=== PATIENT | female | born 1950 | race Caucasian/White ===

== ENCOUNTER 2017-04-14 21:57 | Observation (INO) ==
--- NOTE | 2017-04-15 00:07 | Emergency Department Note ---
Disposition Clinical Impression: Elevated troponin I level Disposition: Admitted As Inpatient Condition: Undetermined Referrals: Jay Valenzuela DO [Primary Care Provider] - Forms: ED Satisfaction Letter General Adult HPI - General Chief complaint: ED Headache Stated complaint: high blood pressure headache Time Seen by Provider: 04/15/17 00:06 Source: patient, family Mode of arrival: ambulatory Limitations: no limitations Nursing Notes Reviewed: Yes Vital Signs Reviewed: Yes - History of Present Illness HPI Narrative: Patient presents to the emergency department for evaluation of elevated blood pressure, and headache for one week. She states that the headache has been all over and is actually top of her head sore. She states her blood pressure has been elevated. She follows Dr. Mcarthur with nephrology she saw him today who stated her blood pressure was elevated and he restarted her hypertension medicine that she had previously been off for the last year. Patient has a history of chronic kidney disease stage III, hypertension, insulin -dependent diabetes, CHF, unstable and stable angina, previous angioplasty with one stent. Patient endorses chest pain daily but is unsure if it has changed or become worsened, headache it does get better when her blood pressure comes down. She denies shortness of breath, dyspnea, nausea, vomiting, diarrhea. Onset (ago): day(s) Location: head Radiation: non-radiation Pain Severity: severe Pain Scale: 10 Quality: stabbing, aching Consistency: intermittent, Worsening Improves with: medication, other (Blood pressure decreasing) Worsens with: movement, other (Blood pressure increasing) Associated symptoms: Reports: chest pain (Chronic). Denies: confusion, cough, diaphoresis, fever/chills, headaches, loss of appetite, malaise, nausea/vomiting , rash, seizure, shortness of breath, syncope, weakness, other - Related Data Allergies Allergy/AdvReac Type Severity Reaction Status Date / Time morphine Allergy Hallucinati Verified 04/14/17 22:12 ng Sulfa (Sulfonamide Allergy Rash Verified 04/14/17 22:12 Antibiotics) All systems ED: reviewed and negative except as stated. Review of Systems: As Per HPI Constitutional: Denies: fever, chills Eyes: Denies: eye pain, eye discharge, vision change ENT ED: Denies: ear pain, hearing loss, epistaxis, dysphagia Cardiovascular: Reports: chest pain (Chronic), dyspnea on exertion (Chronic, but is not worse than previous), edema (Chronic, intermittently). Denies: palpitations, syncope Respiratory: Denies: cough, dyspnea, wheezes, hemoptysis Gastrointestinal: Denies: abdominal pain, nausea, vomiting, diarrhea Integumentary: Denies: rash Neurological: Reports: headache (Drug correlation with blood pressure). Denies : weakness, numbness, paresthesias Past Medical History - Past Medical History Attestation: Yes The following information was validated with the patient. Source: patient Medical history: Reports: CHF, COPD, diabetes, hypertension, renal disease - Social History Smoking Status: Current every day smoker Alcohol use: Reports: none Drug use: Reports: none Physical Exam - General Limitations: no limitations General appearance: alert, in no apparent distress - Head Head exam: atraumatic, normocephalic, normal inspection - Eye Eye exam: Present: normal appearance, PERRL, EOMI - ENT ENT exam: normal oropharynx, mucous membranes moist - Neck Neck exam: Present: normal inspection, full ROM, trachea midline - Chest Chest inspection: Present: normal inspection, symmetric chest wall rise - Respiratory Respiratory exam: Present: normal lung sounds bilaterally - Cardiovascular Cardiovascular exam: Present: regular rate, normal rhythm, normal heart sounds - Abdominal Exam Abdominal exam: Present: soft, Non-Tender, normal bowel sounds. Absent: tenderness, distention, guarding, rebound, rigidity - Neurological Exam Neurological exam: Present: alert, oriented X3, CN II-XII intact - Psychiatric Psychiatric exam: Present: normal affect, normal mood - Skin Skin exam: Present: warm, dry, intact, normal color Course Course Narrative: Patient presents to the emergency department for evaluation of elevated blood pressure, and headache for one week. She states that the headache has been all over and is actually top of her head sore. She states her blood pressure has been elevated. She follows Dr. Mcarthur with nephrology she saw him today who stated her blood pressure was elevated and he restarted her hypertension medicine that she had previously been off for the last year. Patient has a history of chronic kidney disease stage III, hypertension, insulin -dependent diabetes, CHF, unstable and stable angina, previous angioplasty with one stent. Patient endorses chest pain daily but is unsure if it has changed or become worsened but states that she notices it more than normal, headache it does get better when her blood pressure comes down. She denies shortness of breath, dyspnea, nausea, vomiting, diarrhea. Exam revealed an obese 66-year-old female that was well-hydrated, well- nourished in no distress. Her blood pressure was still states her headache has been better since she has arrived just based on her blood pressure decreasing. She is neurologically intact, the lights are on and the area and her family are speaking loudly she does not appear to have any photophobia or phonophobia as well as she denies when asked, heart rate regular rhythm, lungs are clear to auscultate, she does have some nonpitting edema, but she states this is normal for her. Due to history we will treat her headache however we will also do a chest pain workup as patient has had an increase in hypertension and she has a pretty significant history with cardiac dysfunction. - Reevaluation(s) Reevaluation #1: Troponin 0.04, potassium 2.9 and creatinine 1.41., Chest x-ray negative, EKG shows sinus rhythm with occasional PVCs, normal axis. Patient does have an extensive history as well as daily medications. At this point with the elevated troponin and the decreased potassium at the OB nixon for us to admit her at least for observation to make sure this is not a cardiac event. Her blood pressure continues to be in the 170s to 180s systolically. At this time she does not have an increase in chest pain. She does appear comfortable. Spoke with attending Dr. Marinelli E is agreeable to plan of care. Ahead and start slowly replace potassium prior to going to the floor. We will trend troponins every 6 hours times at least 3. We will await hospitalist replacement Time: 02:30 Reevaluation #2: Spoke with Dr. Katz, he is willing to accept patient to the medical floor. We will make her for elevated troponin Time: 03:40 Reevaluation #3: Patient states that she wears a CPAP during the night and she becomes hypoxemic if she does not have it. We will place her on oxygen at 3 L and we will get her CPAP for the night. Spoke with hospitalist he is agreeable, she is still in the ED due to ED holds. Time: 04:00 Vital Signs Temperature 98.1 F 04/14/17 22:12 Pulse Rate 91 04/14/17 22:12 Respiratory Rate 16 04/14/17 22:12 Blood Pressure 187/95 04/14/17 22:12 O2 Sat by Pulse Oximetry 95 04/14/17 22:12 Temperature 98.1 F 04/14/17 22:12 Pulse Rate 74 04/15/17 05:01 Respiratory Rate 16 04/15/17 05:01 Blood Pressure 157/64 04/15/17 05:01 O2 Sat by Pulse Oximetry 94 04/15/17 05:01 Oxygen Delivery Oxygen Delivery Nasal Cannula Medical Decision Making - Lab Data Result diagrams: 04/15/17 01:02 04/15/17 01:02 Lab Results 04/15/17 04/15/17 04/15/17 Range/Units 01:02 01:02 01:02 WBC 9.7 (4.3-11.1) K/mcL RBC 5.62 H (3.82-4.97) M/mcL Hgb 15.1 (11.5-15.4) g/dL Hct 45.8 H (35.3-44.9) % MCV 81.5 L (83.0-100.0) fL MCH 26.9 L (28.0-33.3) pg MCHC 33.0 (31.6-35.5) g/dL RDW 15.3 H (11.5-14.5) % Plt Count 231 (140-400) K/mcL MPV 9.7 (9.4-12.4) fL Immature Gran % 0.4 (0-4) % Seg Neutrophils % 66.1 % Lymphocytes % 24.6 % Monocytes % 5.8 % Eosinophils % 2.2 % Basophils % 0.9 % Neutrophils # 6.4 (1.6-8.9) K/mcL Lymphocytes # 2.4 (0.6-4.6) K/mcL Monocytes # 0.6 (0.0-1.3) K/mcL Eosinophils # 0.2 (0.0-0.6) K/mcL Basophils # 0.1 (0.0-0.2) K/mcL PT (9.4-12.1) Seconds INR APTT (26.0-36.0) Seconds Sodium 137 (136-145) mEq/L Potassium 2.9 L (3.5-5.1) mEq/L Chloride 99 (98-107) mEq/L Carbon Dioxide 30 H (23-29) mEq/L BUN 19 (8-23) mg/dL Creatinine 1.41 H (0.60-1.20) mg/dL Est GFR ( Amer) 45 L (> 60) Est GFR (Non-Af Amer) 37 L (> 60) BUN/Creatinine Ratio 13 (6-26) Glucose 180 H (70-105) mg/dL Calculated Osmolality 291 (280-300) Calcium 9.5 (8.6-10.3) mg/dL Magnesium 1.6 (1.6-2.6) mg/dL Troponin I 0.04 H* (< 0.04) ng/mL B-Natriuretic Peptide (Less than 100) pg/mL 04/15/17 04/15/17 Range/Units 01:02 01:02 WBC (4.3-11.1) K/mcL RBC (3.82-4.97) M/mcL Hgb (11.5-15.4) g/dL Hct (35.3-44.9) % MCV (83.0-100.0) fL MCH (28.0-33.3) pg MCHC (31.6-35.5) g/dL RDW (11.5-14.5) % Plt Count (140-400) K/mcL MPV (9.4-12.4) fL Immature Gran % (0-4) % Seg Neutrophils % % Lymphocytes % % Monocytes % % Eosinophils % % Basophils % % Neutrophils # (1.6-8.9) K/mcL Lymphocytes # (0.6-4.6) K/mcL Monocytes # (0.0-1.3) K/mcL Eosinophils # (0.0-0.6) K/mcL Basophils # (0.0-0.2) K/mcL PT 11.3 (9.4-12.1) Seconds INR 1.1 APTT 33.2 (26.0-36.0) Seconds Sodium (136-145) mEq/L Potassium (3.5-5.1) mEq/L Chloride (98-107) mEq/L Carbon Dioxide (23-29) mEq/L BUN (8-23) mg/dL Creatinine (0.60-1.20) mg/dL Est GFR ( Amer) (> 60) Est GFR (Non-Af Amer) (> 60) BUN/Creatinine Ratio (6-26) Glucose (70-105) mg/dL Calculated Osmolality (280-300) Calcium (8.6-10.3) mg/dL Magnesium (1.6-2.6) mg/dL Troponin I (< 0.04) ng/mL B-Natriuretic Peptide 330 H (Less than 100) pg/mL Attestation Statement - Attestation Attestation: I, Demetrius Roblero MD, personally evaluated this patient and discussed their management with the midlevel provicer, PAC/NEWSP[employer] SUPERVISOR. I reviewed the midlevel provider 's note and agree with the documented findings, medical decision making, and plan of care. 66-year-old female presents to the emergency department complaining of elevated blood pressure for about the past week. She states that she has not felt well and has had a headache. She also complains of some chest pressure and tightness. She does have a history of hypertension. There is been no difficulty with speech or swallowing or balance. No focal numbness tingling or weakness. On examination patient is a well-developed obese elderly female in no acute distress. She is alert and oriented 3. There is no cyanosis or diaphoresis. Breath sounds are clear and equal bilaterally. Heart regular rate and rhythm with frequent ectopy. Abdomen is soft and nontender with normal bowel sounds. Trace pedal edema. Labs reviewed. Troponin 0.04. Chest x-ray negative. EKG shows a normal sinus rhythm with PVCs. Ventricular rate 78. Nonspecific T-wave abnormality. The hospitalist, Dr. Katz, was consulted and accepted admission of the patient.
[2017-04-15 01:14] LABS: Basophils # 0.1 K/mcL (0.0-0.2); Basophils % 0.9 %; Eosinophils # 0.2 K/mcL (0.0-0.6); Eosinophils % 2.2 %; Hematocrit 45.8 % (35.3-44.9); Hemoglobin 15.1 g/dL (11.5-15.4); Immature Granulocytes % 0.4 % (0-4); Lymphocytes # 2.4 K/mcL (0.6-4.6); Lymphocytes % 24.6 %; Mean Corpuscular Hemoglobin 26.9 pg (28.0-33.3); Mean Corpuscular Volume 81.5 fL (83.0-100.0); Mean Platelet Volume 9.7 fL (9.4-12.4); Monocytes # 0.6 K/mcL (0.0-1.3); Monocytes % 5.8 %; Neutrophils # 6.4 K/mcL (1.6-8.9); Platelet Count 231 K/mcL (140-400); Red Blood Count 5.62 M/mcL (3.82-4.97); Red Cell Distribution Width 15.3 % (11.5-14.5); Segmented Neutrophils % 66.1 %
[2017-04-15 01:37] LABS: Calcium 9.5 mg/dL (8.6-10.3); Potassium 2.9 mEq/L (3.5-5.1)
[2017-04-15] MEDS ORDERED: Aspirin 81 MG TAB.CHEW PO ONE (01:57)
[2017-04-15] MEDS ORDERED: Ketorolac 30 MG/ML VIAL IVP ONE (02:03)
[2017-04-15] MEDS ORDERED: Prochlorperazine 10 MG/2 ML VIAL IVP PRN (02:03)
[2017-04-15 02:19] LABS: INR 1.1; Prothrombin Time 11.3 Seconds (9.4-12.1)
[2017-04-15 02:22] LABS: Activated Partial Thrombo Time 33.2 Seconds (26.0-36.0)
[2017-04-15 02:26] LABS: Magnesium 1.6 mg/dL (1.6-2.6)
[2017-04-15] MEDS ORDERED: Naloxone 0.4 MG/ML INJ IVP PRN (07:39)
[2017-04-15] MEDS ORDERED: *HR* HYDROcodone/Acet 5/325 mg TABLET PO PRN (07:39)
[2017-04-15] MEDS ORDERED: Acetaminophen 325 MG TABLET PO PRN (07:39)
--- NOTE | 2017-04-15 07:46 | Internal Med History&Physical ---
Date of Encounter: 04/15/17 Time of Encounter: 08:42 Assessment and Plan (1) Elevated troponin I level Current visit: Yes Status: Acute Patient with CAD and known stable angina, no chest pain at time of review However, troponin 0.04-0.04, adynamic EKG is non-ischemic obtain ECHO Patient is on plavix, continue same, add ASA and BB low dose (2) Hypokalemia Current visit: Yes Status: Acute replaced, continue to monitor (3) CAD (coronary artery disease) Current visit: Yes Status: Chronic as in elevated troponin Qualifiers: Coronary Disease-Associated Artery/Lesion type: [place] artery [place] vs. transplanted heart: [place] heart Associated angina: with stable angina Qualified Code(s): I25.118 - Atherosclerotic heart disease of [place] coronary artery with other forms of angina pectoris (4) Hypertensive urgency Current visit: Yes Status: Acute resolved, blood pressure is controlled at this time, resume home meds-Lisinopril , add norvasc (5) HUSAM (obstructive sleep apnea) Current visit: Yes Status: Chronic cpap at night (6) CKD (chronic kidney disease) stage 3, GFR 30-59 ml/min Current visit: Yes Status: Chronic renal function is stable (7) CHF (congestive heart failure) Current visit: Yes Status: Chronic euvolemic at this time BNP elevated at 300 Chest is clear follow echo report not on diuretics at home Qualifiers: Heart failure type: unspecified Heart failure chronicity: chronic Qualified Code(s): I50.9 - Heart failure, unspecified (8) Obesity Current visit: Yes Status: Chronic lifestyle modification Qualifiers: Obesity type: unspecified obesity type Obesity classification: adult class 3 (BMI >= 40) Serious obesity comorbidity presence: with serious comorbidity Body mass index: BMI 45.0-49.9 Qualified Code(s): E66.9 - Obesity, unspecified; Z68.42 - Body mass index (BMI) 45.0-49.9, adult; Z68.42 - Body mass index (BMI) 45.0-49.9, adult; Z68.42 - Body mass index (BMI) 45.0-49.9, adult; Z68.42 - Body mass index (BMI) 45.0-49.9, adult Internal Medicine - H&P: HPI Chief complaint: Uncontrolled blood pressure, headache Admitted From: Home Plans for Post Hospital Care: Home History of present illness: Ms. Garcia is a 66 year old female with CKD III, HTN, DM< CHF, CAD with stable angina She presented as a referral from her licensed psychologist's office for uncontrolled blood pressure The patient tates she has been off her blood pressure medications for a year, but her blood pressure has been elevated for several days. She presented to her licensed psychologist for routine follow up and he referred her to the ER due to uncontrolled blood pressure (numbers unknown), but presenting blood pressure was 187/95, patient also reported headache that are worse with elevated blood pressures. She denies any other complains She has stable angina, following CAD with stent placement and states she has no increase in her baseline chest pain. She has no fever or chills, no respiratory , neurologic, abdominal or genitourinary symptoms HEr work up in the ER revealed a trop of 0.04. Other work up unremarkable. EKG is non-ischemic with some PVCs. CXR is unremarkable. BNP 330. Hypokalemia with K 2.9, being replaced at time of review Past Med Surg Social Fam HX - Past Medical History Medical history: CHF, COPD, diabetes, hypertension, renal disease - Social History Smoking Status: Current every day smoker Alcohol use: none Drug use: none Internal Medicine - H&P: Meds ALPRAZolam [Xanax 1 MG Tablet] 1 mg PO BID 04/15/17 [History] Clopidogrel [Plavix] 75 mg PO DAILY 04/15/17 [History] DULoxetine [Cymbalta] 30 mg PO BID 04/15/17 [History] Famotidine [Heartburn Prevention] 20 mg PO BID 04/15/17 [History] Fenofibrate Nanocrystallized [Triglide] 160 mg PO DAILY 04/15/17 [History] Lisinopril [Zestril] 10 mg PO DAILY 04/15/17 [History] Potassium Chloride [K-Tab ER] 20 meq PO BID 04/15/17 [History] Trazodone HCl 100 mg PO HS 04/15/17 [History] risperiDONE [Risperidone] 1 mg PO DAILY 04/15/17 [History] 3 Allergy/AdvReac Type Severity Reaction Status Date / Time morphine Allergy Hallucinati Verified 04/15/17 07:32 ng Sulfa (Sulfonamide Allergy Rash Verified 04/15/17 07:32 Antibiotics) All Systems PM: A 10-system review of systems was performed and is negative for pertinent findings except as documented above in the HPI. - Constitutional Constitutional: as per HPI - EENT Eyes: as per HPI Ears: as per HPI Nose, mouth and throat: as per HPI - Cardiovascular Cardiovascular ROS IM: as per HPI - Respiratory Respiratory: as per HPI - Gastrointestinal Gastrointestinal: as per HPI - Genitourinary Genitourinary: as per HPI - Musculoskeletal Musculoskeletal ROS IM: as per HPI - Integumentary Integumentary IM: as per HPI - Neurological Neurological ROS: as per HPI - Hematologic/Lymphatic Hematologic/Lymphatic: as per HPI - Constitutional Vitals: Temp Pulse Resp BP Pulse Ox 98.1 F 68 20 158/64 93 04/14/17 22:12 04/15/17 07:40 04/15/17 07:40 04/15/17 07:40 04/15/17 07:40 General appearance: Present: A&O X 3, pleasant, no acute distress - Head Head exam: Present: atraumatic, normocephalic - Eye Eye exam: Present: PERRL, conjuntiva pink, sclera anicteric Pupils: Present: PERRL - Neck Neck exam general surgery: Present: supple, trachea midline. Absent: lymphadenopathy - Respiratory Respiratory exam: Present: CTAB. Absent: accessory muscle use, rales, rhonchi, wheezes - Cardiovascular Cardiovascular exam: Present: RRR, +S1, +S2. Absent: diastolic murmur, gallop, rubs, systolic murmur - GI/Abdominal GI/Abdominal exam: Present: normal bowel sounds, soft, no peritoneal signs. Absent: distended, tenderness - Extremities Exam Additional comments: chronic venous stasis changes, no edema - Neurological Exam Neurological exam: Present: alert, CN II-XII intact, oriented X3, no focal deficits. Absent: pronater drift, facial droop, speech deficit - Skin Skin exam: Present: dry, intact Internal Med - H&P Results - Labs CBC & Chem 7: 04/15/17 01:02 04/15/17 01:02 Labs: Short CBC 04/15/17 Range/Units 01:02 WBC 9.7 (4.3-11.1) K/mcL Hgb 15.1 (11.5-15.4) g/dL Hct 45.8 H (35.3-44.9) % Plt Count 231 (140-400) K/mcL Neutrophils # 6.4 (1.6-8.9) K/mcL BMP 04/15/17 01:02 Sodium 137 Potassium 2.9 L Chloride 99 Carbon Dioxide 30 H BUN 19 Creatinine 1.41 H Glucose 180 H Calcium 9.5 Cardiac Enzymes 04/15/17 Range/Units 01:02 Troponin I 0.04 H* (< 0.04) ng/mL - Impressions ITS Impressions Chest X-Ray 04/15/17 00:28 IMPRESSION: No acute cardiopulmonary disease. D/ / Ramin Malik MD / Ramin Malik MD Interpreting Provider: Ramin Malik MD
[2017-04-15] MEDS ORDERED: Aspirin Enteric Coated 81 MG Tablet PO SCH (09:00)
[2017-04-15] MEDS ORDERED: ALPRAZolam 1 MG TABLET PO SCH (09:00)
[2017-04-15] MEDS: Fenofibrate 54 MG TABLET PO SCH (09:03)
[2017-04-15] MEDS: risperiDONE 1 MG TABLET PO SCH (09:05)
[2017-04-15] MEDS: amLODIPine 5 MG TABLET PO SCH (09:06)
[2017-04-15] MEDS: Famotidine 20 MG TABLET PO SCH ×2 (09:17→20:42)
[2017-04-15] MEDS ORDERED: *HR* Dextrose 50 % in Water (Syg) 50 ML SYRINGE IVP PRN (09:27)
[2017-04-15] MEDS ORDERED: D5% in Water 1,000 ML IVC PRN (09:27)
[2017-04-15] MEDS ORDERED: Dextrose Gel 15 GM/37.5 ML TUBE PO PRN ×2 (09:27)
[2017-04-15] MEDS: Insulin LISPRO 300 UNITS/3 ML VIAL SQ SCH ×4 (13:38→17:07)
[2017-04-15] MEDS ORDERED: Insulin LISPRO 300 UNITS/3 ML VIAL SQ SCH (21:00)
[2017-04-15] MEDS ORDERED: Insulin DETEMIR 100 UNIT/ML X5UNITS SQ SCH (21:00)
[2017-04-15] MEDS ORDERED: traZODone 50 MG TABLET PO SCH (21:00)
[2017-04-15] MEDS: ALPRAZolam 0.5 MG TABLET PO SCH (22:16)
[2017-04-16 04:35] LABS: Basophils # 0.1 K/mcL (0.0-0.2); Basophils % 0.9 %; Eosinophils # 0.2 K/mcL (0.0-0.6); Eosinophils % 2.7 %; Hematocrit 42.7 % (35.3-44.9); Immature Granulocytes % 0.4 % (0-4); Mean Corpuscular HGB Conc 32.8 g/dL (31.6-35.5); Mean Corpuscular Hemoglobin 27.4 pg (28.0-33.3); Mean Corpuscular Volume 83.6 fL (83.0-100.0); Mean Platelet Volume 9.7 fL (9.4-12.4); Monocytes # 0.5 K/mcL (0.0-1.3); Monocytes % 6.7 %; Neutrophils # 4.9 K/mcL (1.6-8.9); Platelet Count 206 K/mcL (140-400); Red Blood Count 5.11 M/mcL (3.82-4.97); Red Cell Distribution Width 15.7 % (11.5-14.5); Segmented Neutrophils % 63.3 %
[2017-04-16 04:51] LABS: Calcium 9.1 mg/dL (8.6-10.3); Chol/HDL Ratio 6.4 (0-4.9); Potassium 3.6 mEq/L (3.5-5.1)
--- NOTE | 2017-04-16 08:52 | Discharge Summary ---
Orders not resulted at time of discharge: fu with pcp and nephrology Date of Encounter: 04/16/17 Time of Encounter: 08:50 - Discharge Diagnosis (1) Elevated troponin I level Priority: Secondary Status: Acute Comments: troponin flat not consistent with nstemi no chest pain (2) CAD (coronary artery disease) Priority: Secondary Status: Chronic Comments: no chest pain Qualifiers: Coronary Disease-Associated Artery/Lesion type: [place] artery [place] vs. transplanted heart: [place] heart Associated angina: with stable angina Qualified Code(s): I25.118 - Atherosclerotic heart disease of [place] coronary artery with other forms of angina pectoris (3) Obesity Priority: Secondary Status: Chronic Qualifiers: Obesity type: unspecified obesity type Obesity classification: adult class 3 (BMI >= 40) Serious obesity comorbidity presence: with serious comorbidity Body mass index: BMI 45.0-49.9 Qualified Code(s): E66.9 - Obesity, unspecified; Z68.42 - Body mass index (BMI) 45.0-49.9, adult; Z68.42 - Body mass index (BMI) 45.0-49.9, adult; Z68.42 - Body mass index (BMI) 45.0-49.9, adult; Z68.42 - Body mass index (BMI) 45.0-49.9, adult (4) Hypertensive urgency Priority: Primary Status: Acute Comments: BP better will increase lisinopril to 20 mg daily fu with nephrology (5) CKD (chronic kidney disease) stage 3, GFR 30-59 ml/min Priority: Secondary Status: Chronic Comments: follows DR bedolla (6) Diabetes mellitus Priority: Secondary Status: Chronic Qualifiers: Diabetes mellitus type: type 2 Diabetes mellitus complication status: with kidney complications Diabetes mellitus complication detail: with chronic kidney disease Diabetes mellitus intermission coordinator insulin use: unspecified penitentiary insulin use status Chronic kidney disease stage: stage 2 (mild) Qualified Code(s): E11.22 - Type 2 diabetes mellitus with diabetic chronic kidney disease ; N18.2 - Chronic kidney disease, stage 2 (mild); N18.2 - Chronic kidney disease , stage 2 (mild) (7) Hypokalemia Priority: Secondary Status: Resolved Comments: replaced Hospital course: Ms. Garcia is a 66 year old female Patient admitted from nephrologists office due to uncontrolled hypertension bp IS NOW BETTER will dc on increased lisinopril and norvasc follow up with nephrologists in 1-2 weeks Discharge discussed with: other - Time Spent with Patient Total time spent providing and/or coordinating discharge services: Less than 30 minutes - Discharge Medications Prescriptions: amLODIPine [Norvasc] 10 mg PO DAILY 30 Days #30 tablet Home Medications: ALPRAZolam [Xanax 1 MG Tablet] 1 mg PO BID 04/15/17 [History] Clopidogrel [Plavix] 75 mg PO DAILY 04/15/17 [History] DULoxetine [Cymbalta] 30 mg PO BID 04/15/17 [History] Famotidine [Heartburn Prevention] 20 mg PO BID 04/15/17 [History] Fenofibrate Nanocrystallized [Triglide] 160 mg PO DAILY 04/15/17 [History] Potassium Chloride [K-Tab ER] 20 meq PO BID 04/15/17 [History] Trazodone HCl 100 mg PO HS 04/15/17 [History] risperiDONE [Risperidone] 1 mg PO DAILY 04/15/17 [History] Lisinopril [Zestril] 20 mg PO DAILY #30 04/16/17 [Rx] amLODIPine [Norvasc] 10 mg PO DAILY 30 Days #30 tablet 04/16/17 [Rx] Allergies/Adverse Reactions: 3 Allergy/AdvReac Type Severity Reaction Status Date / Time morphine Allergy Hallucinati Verified 04/15/17 07:32 ng Sulfa (Sulfonamide Allergy Rash Verified 04/15/17 07:32 Antibiotics) Date of admission: 04/15/17 10:24 Primary care physician: Jay Valenzuela, Discharging clinician: Vicki Johnson Anticipated date of discharge: 04/16/17 - Constitutional Vitals: Temp Pulse Resp BP Pulse Ox 98.2 F 80 15 173/63 93 04/16/17 08:37 04/16/17 08:37 04/16/17 08:37 04/16/17 08:37 04/16/17 08:37 General appearance: Present: A&O X 3, pleasant, no acute distress - Patient Status Disposition: Home, Self-Care Condition: Good Functional capacity at discharge: independent ambulation Overall status at discharge: patient is progressing back to baseline - Discharge Instructions Follow Up With: Jay Valenzuela DO [Primary Care Provider] - - Diet and Activity Activity: other Diet: advance to your usual diet
[2017-04-16] MEDS: amLODIPine 5 MG TABLET PO SCH (09:13)
[2017-04-16] MEDS: risperiDONE 1 MG TABLET PO SCH (09:13)
[2017-04-16] MEDS: Fenofibrate 54 MG TABLET PO SCH (09:14)
[2017-04-16] MEDS: Famotidine 20 MG TABLET PO SCH (10:38)
[2017-04-16] MEDS: ALPRAZolam 0.5 MG TABLET PO SCH (10:38)
[2017-04-16] MEDS: Insulin LISPRO 300 UNITS/3 ML VIAL SQ SCH ×3 (10:40→11:49)
[2017-04-16 13:25] VITALS: BP 183/84
--- NOTE | 2017-04-17 10:27 | Electrocardiograph Report ---
[place] [id number] Test Date: 2017-04-14 [facility] Gender: F Nutritional Services Director: AD : 1950 Requested By: Demetrius Roblero Order Number: [id number] Reading MD: Krishna Low DO Measurements Intervals [place] Rate: 78 P: 22 OK: 150 QRS: -12 QRSD: 93 T: 74 QT: 347 QTc: 381 Interpretive Statements SINUS RHYTHM WITH OCCASIONAL VENTRICULAR PREMATURE COMPLEXES NONSPECIFIC T-WAVE ABNORMALITY Electronically Signed On 04-17-2017 10:26:07 EST by Krishna Low DO
== END 2017-04-16 14:00 | disposition home or self-care (01) ==
LOC: 2SOUTHHOLD 21:57 → EMEROO 21:57 → 2SOUTHHOLD 04-15 15:10
PROVIDERS: ADMIT Internal Medicine; ATTEND Internal Medicine

== ENCOUNTER 2017-09-27 17:42 | Inpatient (IN) ==
--- NOTE | 2017-09-27 18:02 | Emergency Department Note ---
Disposition Clinical Impression: Morbid obesity, Tobacco abuse, HUSAM (obstructive sleep apnea), CKD (chronic kidney disease) stage 3, GFR 30-59 ml/min Acute exacerbation of CHF (congestive heart failure) Qualifiers: Heart failure type: systolic Qualified Code(s): I50.23 - Acute on chronic systolic (congestive) heart failure CAD (coronary artery disease) Qualifiers: Coronary Disease-Associated Artery/Lesion type: [place] artery [place] vs. transplanted heart: [place] heart Associated angina: without angina Qualified Code(s): I25.10 - Atherosclerotic heart disease of [place] coronary artery without angina pectoris HTN (hypertension) Qualifiers: Hypertension type: essential hypertension Qualified Code(s): I10 - Essential ( primary) hypertension Disposition: Admitted As Inpatient Condition: Fair Time of Disposition: 20:25 SOB HPI - General Chief Complaint: ED Shortness of Breath/Dyspnea Stated Complaint: CANDACE Time Seen by Provider: 09/27/17 18:01 Source: patient, family Limitations: no limitations Nursing Notes Reviewed: Yes Vital Signs Reviewed: Yes - History of Present Illness 67-year-old female presents with 3 weeks of worsening shortness of breath. She has a history of CAD, DM, CHF and COPD. She has had worsening shortness of breath, increased sputum production of cream sputum, increased edema in her bilateral lower extremities, and inability to lay down to sleep at night. She is noncompliant with her home oxygen and medications. She does wear her CPAP every night but does not wear home oxygen. She states that she took 40 of Lasix this morning. She has CAD with 3 stents, denies CP. - Related Data Home Medications Medication Instructions Recorded Confirmed ALPRAZolam [Xanax 1 MG Tablet] 1 mg PO BID 04/15/17 07/23/17 Clopidogrel [Plavix] 75 mg PO DAILY 04/15/17 07/23/17 DULoxetine [Cymbalta] 30 mg PO BID 04/15/17 07/23/17 Famotidine [Heartburn Prevention] 20 mg PO BID 04/15/17 07/23/17 Fenofibrate Nanocrystallized 160 mg PO DAILY 04/15/17 07/23/17 [Triglide] Trazodone HCl 100 mg PO HS 04/15/17 07/23/17 risperiDONE [Risperidone] 1 mg PO DAILY 04/15/17 07/23/17 Insulin Regular U-500 [HumuLIN R 12 unit SQ DAILY 07/23/17 07/23/17 U-500] Metoprolol Tartrate [Lopressor] 50 mg PO BID 07/23/17 07/23/17 Ranolazine [Ranexa] 500 mg PO BID 07/23/17 07/23/17 Rosuvastatin [Crestor] 40 mg PO HS 07/23/17 07/23/17 Previous Rx's Medication Instructions Recorded NIFEdipine XL (24 HR) [Procardia 60 mg PO DAILY #30 tab.er.24 07/31/17 XL] hydrALAZINE [HydrALAZINE] 75 mg PO Q8HR #120 tablet 07/31/17 Allergies Allergy/AdvReac Type Severity Reaction Status Date / Time morphine Allergy Hallucinati Verified 09/27/17 17:49 ng Sulfa (Sulfonamide Allergy Rash Verified 09/27/17 17:49 Antibiotics) Constitutional: Reports: fever, weakness. Denies: chills Eyes: Denies: vision change Cardiovascular: Reports: dyspnea on exertion, edema, paroxysmal nocturnal dyspnea. Denies: chest pain, palpitations, syncope Respiratory: Reports: cough, dyspnea, sputum production. Denies: wheezes, hemoptysis, stridor Gastrointestinal: Denies: abdominal pain, nausea, vomiting, diarrhea, constipation, hematemesis, melena, hematochezia Genitourinary: Denies: dysuria Musculoskeletal: Denies: back pain Integumentary: Denies: rash Endocrine: Reports: fatigue Past Medical History - Past Medical History Attestation: Yes The following information was validated with the patient. Source: patient, old records reviewed, obtained from family Medical history: Reports: arthritis, CHF, COPD, diabetes, GERD, hyperlipidemia, hypertension, RA, renal disease Surgical history: Reports: angioplasty/stent, appendectomy, , cataract Psychiatric history: Reports: anxiety, bipolar - Social History Smoking Status: Current every day smoker Smokeless Tobacco Status: No Alcohol use: Reports: none Drug use: Reports: none Physical Exam - General Limitations: no limitations General appearance: alert, in no apparent distress, obese - Head Head exam: atraumatic, normocephalic, normal inspection - Eye Eye exam: Present: normal appearance, PERRL, EOMI - ENT ENT exam: normal exam, normal oropharynx, mucous membranes moist - Neck Neck exam: Present: normal inspection, full ROM, trachea midline - Chest Chest inspection: Present: normal inspection, symmetric chest wall rise - Respiratory Respiratory exam: Absent: respiratory distress, wheezes, accessory muscle use - Expanded Respiratory Exam Location: decreased breath sounds: Left, Right, Upper, Lower - Cardiovascular Cardiovascular exam: Present: regular rate, normal rhythm, +S1, +S2 - Abdominal Exam Abdominal exam: Present: soft, Non-Tender, normal bowel sounds, other (obese). Absent: distention, guarding, rebound, rigidity - Extremities Exam Extremities exam: Present: full ROM, normal capillary refill, pedal edema. Absent: tenderness - Expanded Lower Extremity Exam Lower leg exam: Present: swelling (R>L). Absent: erythema - Back Exam Back exam: Present: normal inspection, full ROM. Absent: tenderness - Neurological Exam Neurological exam: Present: alert, oriented X3 - Psychiatric Psychiatric exam: Present: normal affect, normal mood - Skin Skin exam: Present: warm, dry, intact, normal color Course Course Narrative: 67-year-old female presents with 3 weeks of worsening shortness of breath. She has a history of CAD, DM, CHF and COPD. She has had worsening shortness of breath, increased sputum production of cream sputum, increased edema in her bilateral lower extremities, and inability to lay down to sleep at night. She is noncompliant with her home oxygen and medications. She does wear her CPAP every night but does not wear home oxygen. She states that she took 40 of Lasix this morning. On exam pt obese female who is unable to lie down, no respiratory distress, RRR, poor air movement throughout without rhonchi or rales , soft, non-tender, obese abd, b/l LE edema R>L without erythema, warmth or redness. Will obtain CMP, CBC, trop, BNP, ddimer, CXR, duoneb. DDx CHF exacerbation vs COPD exacerbation vs PE. Dispo pending results, likely will be admitted. - Reevaluation(s) Reevaluation #1: Pt advised that she has pleural effusion, elevated ddimer with elevated BNP. SCr 2.23 so unable to perform CTA chest to r/o PE, will order VQ scan. Will give lasix 40mg IV. Discussed with pt that she will need admission. Pt agreeable. Time: 19:40 - Consultations Consultation #1: Discussed the case with Dr. Ma with the hospitalist service who has accepted the pt for admission. Time: 20:10 Vital Signs Temperature 98.3 F 09/27/17 17:49 Pulse Rate 72 09/27/17 17:49 Respiratory Rate 28 09/27/17 17:49 Blood Pressure 185/92 09/27/17 17:49 O2 Sat by Pulse Oximetry 93 09/27/17 17:49 Temperature 98.3 F 09/27/17 18:00 Pulse Rate 65 09/27/17 20:10 Respiratory Rate 18 09/27/17 20:10 Blood Pressure 187/67 09/27/17 20:10 O2 Sat by Pulse Oximetry 97 09/27/17 20:10 Oxygen Delivery Oxygen Delivery Room Air Shortness of Breath/Dyspnea - MDM Narrative Medical decision making narrative: 67-year-old female presents with 3 weeks of worsening shortness of breath. She has a history of CAD, DM, CHF and COPD. She has had worsening shortness of breath, increased sputum production of cream sputum, increased edema in her bilateral lower extremities, and inability to lay down to sleep at night. She is noncompliant with her home oxygen and medications. She does wear her CPAP every night but does not wear home oxygen. She states that she took 40 of Lasix this morning. On exam pt is obese, has decreased breath sounds throughout without wheezing or rhonchi. She does have b/l LE edema, R>L. Will workup for COPDE vs CHF vs PE. Pt has pleural effusion on CXR, elevated ddimer and BNP. SCr elevated, unable to do CTA chest to r/o PE, will do VQ scan. Will give 40mg IV lasix and admit for CHF exacerbation and PE r/o. - Differential Diagnosis Likely: acute exacerbation of chronic obstructive airways disease, congestive heart failure, pulmonary embolism - Medical Records Medical records reviewed: Yes I reviewed the patient's medical records. - Lab Data Lab results reviewed: Yes I reviewed the patient's lab results. Result diagrams: 09/27/17 18:13 09/27/17 18: Lab Results 09/27/17 09/27/17 09/27/17 Range/Units 18:13 18:13 18:13 WBC 9.2 (4.3-11.1) K/mcL RBC 4.79 (3.82-4.97) M/mcL Hgb 13.2 (11.5-15.4) g/dL Hct 40.8 (35.3-44.9) % MCV 85.2 (83.0-100.0) fL MCH 27.6 L (28.0-33.3) pg MCHC 32.4 (31.6-35.5) g/dL RDW 16.7 H (11.5-14.5) % Plt Count 234 (140-400) K/mcL MPV 9.5 (9.4-12.4) fL Immature Gran % 0.4 (0-4) % Seg Neutrophils % 69.0 % Lymphocytes % 20.5 % Monocytes % 6.9 % Eosinophils % 2.2 % Basophils % 1.0 % Neutrophils # 6.4 (1.6-8.9) K/mcL Lymphocytes # 1.9 (0.6-4.6) K/mcL Monocytes # 0.6 (0.0-1.3) K/mcL Eosinophils # 0.2 (0.0-0.6) K/mcL Basophils # 0.1 (0.0-0.2) K/mcL D-Dimer (0-500) ng/mLFEU Sodium 137 (136-145) mEq/L Potassium 3.6 (3.5-5.1) mEq/L Chloride 103 (98-107) mEq/L Carbon Dioxide 27 (23-29) mEq/L BUN 25 H (8-23) mg/dL Creatinine 2.29 H (0.60-1.20) mg/dL Est GFR ( Amer) 26 L (> 60) Est GFR (Non-Af Amer) 21 L (> 60) BUN/Creatinine Ratio 11 (6-26) Glucose 106 H (70-105) mg/dL Calculated Osmolality 289 (280-300) Calcium 9.5 (8.6-10.3) mg/dL Total Bilirubin 0.7 (0.3-1.0) mg/dL Direct Bilirubin 0.2 (0.0-0.2) mg/dL Indirect Bilirubin 0.5 (0.0-1.2) mg/dL AST 16 (13-39) Units/L ALT 8 (7-52) Units/L Alkaline Phosphatase 45 (34-104) Units/L Troponin I 0.03 (< 0.04) ng/mL B-Natriuretic Peptide 1770 H (Less than 100) pg/mL Serum Total Protein 6.7 (6.4-8.9) g/dL Albumin 3.7 (3.5-5.7) g/dL Globulin 3.0 (2.4-3.5) g/dL Albumin/Globulin Ratio 1.2 (1.1-2.2) 09/27/17 Range/Units 18:13 WBC (4.3-11.1) K/mcL RBC (3.82-4.97) M/mcL Hgb (11.5-15.4) g/dL Hct (35.3-44.9) % MCV (83.0-100.0) fL MCH (28.0-33.3) pg MCHC (31.6-35.5) g/dL RDW (11.5-14.5) % Plt Count (140-400) K/mcL MPV (9.4-12.4) fL Immature Gran % (0-4) % Seg Neutrophils % % Lymphocytes % % Monocytes % % Eosinophils % % Basophils % % Neutrophils # (1.6-8.9) K/mcL Lymphocytes # (0.6-4.6) K/mcL Monocytes # (0.0-1.3) K/mcL Eosinophils # (0.0-0.6) K/mcL Basophils # (0.0-0.2) K/mcL D-Dimer 1387 H (0-500) ng/mLFEU Sodium (136-145) mEq/L Potassium (3.5-5.1) mEq/L Chloride (98-107) mEq/L Carbon Dioxide (23-29) mEq/L BUN (8-23) mg/dL Creatinine (0.60-1.20) mg/dL Est GFR ( Amer) (> 60) Est GFR (Non-Af Amer) (> 60) BUN/Creatinine Ratio (6-26) Glucose (70-105) mg/dL Calculated Osmolality (280-300) Calcium (8.6-10.3) mg/dL Total Bilirubin (0.3-1.0) mg/dL Direct Bilirubin (0.0-0.2) mg/dL Indirect Bilirubin (0.0-1.2) mg/dL AST (13-39) Units/L ALT (7-52) Units/L Alkaline Phosphatase (34-104) Units/L Troponin I (< 0.04) ng/mL B-Natriuretic Peptide (Less than 100) pg/mL Serum Total Protein (6.4-8.9) g/dL Albumin (3.5-5.7) g/dL Globulin (2.4-3.5) g/dL Albumin/Globulin Ratio (1.1-2.2) - Radiology Data Radiology results reviewed: Yes I reviewed the patient's radiology results. Chest X-Ray 09/27/17 18:09 IMPRESSION: Pulmonary vascular congestion and small pleural effusions. No overt pulmonary edema. D/ / Krishna Lawson MD / Krishna Lawson MD Interpreting Provider: Krishna Lawson MD - EKG Data EKG attestation: Yes I reviewed and interpreted this EKG. EKG results narrative: NSR without ST elevation or depression. Attestation Statement - Attestation Attestation: Patient was seen with resident physician. I reviewed the history, physical, assessment and plan, and agree with the findings. I also personally evaluated this patient and had [id number] time with this patient. 67-year-old female presents emergency Department chief complaint of worsening shortness of breath. Patient is a history of COPD and CHF. According to her and her family she is minimally compliant with her medications. Patient's post man option which she does not wear and she takes a variety medications intermittently. She said though she has had weight loss, she has increased swelling of her lower extremities bilaterally. Worsening shortness of breath rhythm course the day and the last several days. And some intermittent chest pain which is sharp in nature and worse with inspiration earlier as well. No fevers or chills. Review systems as above remainder negative. Physical exam vital signs were stable ENT is unremarkable. Heart regular rhythm and rate. Lungs I could not auscultate any wheezing or rhonchi. Abdomen morbid obesity no obvious tenderness. Extremities swelling bilaterally lower extremities right perhaps slightly worse than left. Neurologically alert and oriented skin no obvious rashes. Psych normal. ED course we will do a full cardiac and pulmonary workup in attempt to determine the etiology of patient's symptoms. Disposition will depend on the findings of the workup but likely will be admission secondary patient's chest pain and multiple comorbidities. EKG showed no ischemic changes. Chest x-ray showed pulmonary congestion with mild effusions. BNP was markedly elevated as was d-dimer. We wanted to get a CTA of the chest but her renal function was too poor to obtain that. This bad renal function is not new in review of her old chart. A VQ scan was ordered. This was pending at the time the patient was admitted. He spoke with the hospitalist service to arrange for admission she come in for COPD exacerbation and CHF as well as fluid management. VQ scan results would not change that outcome. It was communicated to the hospitalist service that the VQ scan was pending and will be done this evening at some point. Hemodynamically the patient remained stable she was breathing better and in no acute distress while in the emergency department. I agree with resident physician assessment and plan.
[2017-09-27] MEDS ORDERED: Ipratropium/Albuterol Neb 3 ML IH ONE (18:09)
[2017-09-27] MEDS ORDERED: methylPREDNISolone 125 MG/2 ML VIAL IVP ONE (18:09)
[2017-09-27 18:24] LABS: Basophils # 0.1 K/mcL (0.0-0.2); Eosinophils # 0.2 K/mcL (0.0-0.6); Eosinophils % 2.2 %; Hematocrit 40.8 % (35.3-44.9); Hemoglobin 13.2 g/dL (11.5-15.4); Immature Granulocytes % 0.4 % (0-4); Lymphocytes # 1.9 K/mcL (0.6-4.6); Lymphocytes % 20.5 %; Mean Corpuscular HGB Conc 32.4 g/dL (31.6-35.5); Mean Corpuscular Hemoglobin 27.6 pg (28.0-33.3); Mean Corpuscular Volume 85.2 fL (83.0-100.0); Mean Platelet Volume 9.5 fL (9.4-12.4); Monocytes # 0.6 K/mcL (0.0-1.3); Monocytes % 6.9 %; Neutrophils # 6.4 K/mcL (1.6-8.9); Platelet Count 234 K/mcL (140-400); Red Blood Count 4.79 M/mcL (3.82-4.97); Red Cell Distribution Width 16.7 % (11.5-14.5)
[2017-09-27 18:50] LABS: Albumin 3.7 g/dL (3.5-5.7); Albumin/Globulin Ratio 1.2 (1.1-2.2); Bilirubin,Direct 0.2 mg/dL (0.0-0.2); Bilirubin,Indirect 0.5 mg/dL (0.0-1.2); Bilirubin,Total 0.7 mg/dL (0.3-1.0); Calcium 9.5 mg/dL (8.6-10.3); Potassium 3.6 mEq/L (3.5-5.1); Total Protein 6.7 g/dL (6.4-8.9); Troponin I 0.03 ng/mL (< 0.04)
[2017-09-27] MEDS ORDERED: Lidocaine Jelly 11 ml Syringe MM ONE (19:00)
[2017-09-27] MEDS ORDERED: Milk and Molasses Enema 200 ML RC ONE (19:01)
[2017-09-27] MEDS ORDERED: Furosemide 40 MG/4 ML VIAL IVP ONE (19:29)
[2017-09-27] MEDS ORDERED: Naloxone 0.4 MG/ML INJ IVP PRN (23:29)
[2017-09-27] MEDS ORDERED: *HR* Dextrose 50 % in Water (Syg) 50 ML SYRINGE IVP PRN (23:32)
[2017-09-27] MEDS ORDERED: Dextrose Gel 15 GM/37.5 ML TUBE PO PRN ×2 (23:32)
[2017-09-27] MEDS ORDERED: D5% in Water 1,000 ML IVC PRN (23:32)
[2017-09-28] MEDS: Azithromycin 500 MG in D5% in Water 250 ML IVPB SCH (00:21)
[2017-09-28 01:01] LABS: Hematocrit 38.3 % (35.3-44.9); Hemoglobin 12.2 g/dL (11.5-15.4); Mean Corpuscular HGB Conc 31.9 g/dL (31.6-35.5); Mean Corpuscular Hemoglobin 26.8 pg (28.0-33.3); Mean Corpuscular Volume 84.2 fL (83.0-100.0); Mean Platelet Volume 10.6 fL (9.4-12.4); Platelet Count 234 K/mcL (140-400); Red Blood Count 4.55 M/mcL (3.82-4.97); Red Cell Distribution Width 16.9 % (11.5-14.5)
[2017-09-28 01:17] LABS: Calcium 9.4 mg/dL (8.6-10.3); Potassium 3.6 mEq/L (3.5-5.1)
[2017-09-28] MEDS: Ipratropium/Albuterol Neb 3 ML IH SCH ×4 (04:13→23:16)
[2017-09-28] MEDS: *HR* Heparin 5,000 UNIT/ML VIAL SQ SCH ×2 (05:47→16:23)
--- NOTE | 2017-09-28 08:14 | Internal Med History&Physical ---
Date of Encounter: 09/27/17 Time of Encounter: 22:15 Internal Medicine - H&P: HPI Chief complaint: CHF exacerbation Admitted From: Home Plans for Post Hospital Care: Home History of present illness: Ms. Garcia is a 67 year old female Patient presented to the ER with 2-3 week history of difficulty breathing and heaviness in her chest. She is also had increased sputum production, and bilateral lower extremity edema. She has been mostly noncompliant with her oxygen at home, but has been trying over the last few days if it would help. She has not noticed much improvement though. She has been using her BiPAP at night as well. Her grandkids eventually convinced her to go to the ER to be seen. She describes herself as stubborn and has even left the hospital recently AMA for this reason. She has tried albuterol at home but it only works for a short period of time. She is also been having chest pain the last week mostly in the center but radiating to the left side. Today she said that the pain was sharp in quality. In the emergency room she was found to have a BNP of 1770, d-dimer 1387, troponins undetectable. Chest x-ray showed pulmonary vascular congestion with a small pleural effusion but no edema. Due to her kidney function CTA cannot be ordered and a VQ scan was ordered instead with low probability of pulmonary embolism. She is admitted for further management of her CHF exacerbation and shortness of breath. Upon my examination patient has no complaints, she is breathing much better after receiving breathing treatments in the emergency room as well as Lasix. She denies chest pain, abdominal pain, nausea, diarrhea, vomiting. She denies pain in the lower extremities. Past Med Surg Social Fam HX - Past Medical History Medical history: arthritis, CHF, COPD, diabetes, GERD, hyperlipidemia, hypertension, RA, renal disease Psychiatric history: anxiety, bipolar - Past Surgical History Surgical History: angioplasty/stent, appendectomy, , cataract Additional surgical history: 1 STENT - Social History Smoking Status: Current every day smoker Smokeless Tobacco Status: No Alcohol use: none Drug use: none - Family History Mother Living Status: Still Living Hx Family Cardiac Disorders: Yes Hx Family Respiratory Disorders: Yes (copd) Hx Family Cancer: Yes Hx Family Neurologic Disorders: Yes (alzheimer) Internal Medicine - H&P: Meds ALPRAZolam [Xanax 1 MG Tablet] 1 mg PO BID 04/15/17 [History] Clopidogrel [Plavix] 75 mg PO DAILY 04/15/17 [History] DULoxetine [Cymbalta] 30 mg PO BID 04/15/17 [History] Famotidine [Heartburn Prevention] 20 mg PO BID 04/15/17 [History] Fenofibrate Nanocrystallized [Triglide] 160 mg PO DAILY 04/15/17 [History] Trazodone HCl 100 mg PO HS 04/15/17 [History] risperiDONE [Risperidone] 1 mg PO DAILY 04/15/17 [History] Insulin Regular U-500 [HumuLIN R U-500] 8 unit SQ DAILY 07/23/17 [History] Metoprolol Tartrate [Lopressor] 50 mg PO BID 07/23/17 [History] Ranolazine [Ranexa] 500 mg PO BID 07/23/17 [History] Rosuvastatin [Crestor] 40 mg PO HS 07/23/17 [History] NIFEdipine XL (24 HR) [Procardia XL] 60 mg PO DAILY #30 tab.er.24 07/31/17 [Rx] hydrALAZINE [HydrALAZINE] 75 mg PO Q8HR #120 tablet 07/31/17 [Rx] 3 Allergy/AdvReac Type Severity Reaction Status Date / Time morphine Allergy Hallucinati Verified 09/27/17 17:49 ng Sulfa (Sulfonamide Allergy Rash Verified 09/27/17 17:49 Antibiotics) All Systems PM: A 10-system review of systems was performed and is negative for pertinent findings except as documented above in the HPI. - Constitutional Vitals: Temp Pulse Resp BP Pulse Ox 97.0 F L 70 18 213/96 95 09/28/17 06:33 09/28/17 06:33 09/28/17 06:33 09/28/17 06:33 09/28/17 06:33 General appearance: Present: cooperative, A&O X 3, pleasant, no acute distress, answers questions appropriately Exam: Patient awake alert and oriented. Not in respiratory distress - Head Head exam: Present: normal inspection - Eye Eye exam: Present: EOMI, normal appearance - Respiratory Respiratory exam: Present: decreased breath sounds, wheezes. Absent: chest wall tenderness, respiratory distress - Cardiovascular Cardiovascular exam: Present: RRR. Absent: diastolic murmur, systolic murmur - GI/Abdominal GI/Abdominal exam: Present: normal bowel sounds, soft. Absent: tenderness - Extremities Exam Extremities exam: Present: warm, radial pulses palpable and symmetrical. Absent : tenderness - Neurological Exam Neurological exam: Present: no focal deficits, strengths equal and symetr throughout. Absent: motor sensory deficit, facial droop, speech deficit - Skin Skin exam: Present: dry, normal color, warm Internal Med - H&P Results - Labs CBC & Chem 7: 09/28/17 00:31 09/28/17 00:31 Labs: Short CBC 09/28/17 Range/Units 00:31 WBC 8.8 (4.3-11.1) K/mcL Hgb 12.2 (11.5-15.4) g/dL Hct 38.3 (35.3-44.9) % Plt Count 234 (140-400) K/mcL BMP 09/28/17 00:31 Sodium 134 L Potassium 3.6 Chloride 102 Carbon Dioxide 24 BUN 26 H Creatinine 2.34 H Glucose 147 H Calcium 9.4 Cardiac Enzymes 09/28/17 09/28/17 Range/Units 00:31 06:02 Troponin I 0.03 0.03 (< 0.04) ng/mL - Assessment and plan (1) Acute exacerbation of CHF (congestive heart failure) Current Visit: Yes Status: Acute Assessment and plan: Patient has history of CHF, has an elevated BNP of 1770. She has had shortness of breath and heaviness for the last 2-3 weeks. She is on home oxygen at 2.5 L , but states that she does not use it as she is stubborn. Emergency room started the patient on Lasix 40 mg IV, and evaluated her for pulmonary embolism. A VQ scan which showed low probability for pulmonary embolism. Continue Lasix 40 mg IV, monitor kidney function as patient does have history of kidney disease I's and O's Daily weights Qualifiers: Heart failure type: systolic Qualified Code(s): I50.23 - Acute on chronic systolic (congestive) heart failure (2) COPD exacerbation Current Visit: No Status: Resolved Assessment and plan: Patient wheezy on exam, has history of COPD and is a smoker, stating she smokes about 3/4 pack of cigarettes daily. Is on oxygen at home at 2.5 L but does not use it regularly like she should. Continue oxygen supplementation Continuous pulse ox Prednisone 40 mg Zithromax and 500 mg IV Breathing treatments with duonebs BiPAP at night (3) Shortness of breath Current Visit: Yes Status: Acute Assessment and plan: Likely secondary to above, low probability of pulmonary embolism despite elevated d-dimer. (4) HTN (hypertension) Current Visit: Yes Status: Chronic Assessment and plan: Elevated in the emergency room, and upon arrival to the floor. Patient given IV hydralazine, monitor for improvement. Continue home meds Qualifiers: Hypertension type: essential hypertension Qualified Code(s): I10 - Essential (primary) hypertension (5) CKD (chronic kidney disease) stage 3, GFR 30-59 ml/min Current Visit: Yes Status: Chronic Assessment and plan: Patient at baseline continue to monitor with use of Lasix. (6) Diabetes mellitus Current Visit: No Status: Chronic Assessment and plan: History of diabetes, on large dose of insulin at home, 8 units of U5 100 insulin. Monitor sugars with meals and at night. 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
[2017-09-28] MEDS: predniSONE 20 MG TABLET PO SCH (08:20)
[2017-09-28] MEDS: Furosemide 40 MG/4 ML VIAL IVP SCH ×2 (08:21→16:23)
[2017-09-28] MEDS: Insulin LISPRO 300 UNITS/3 ML VIAL SQ SCH ×4 (08:23→21:54)
--- NOTE | 2017-09-28 14:48 | Internal Med Progress Note ---
<Jina Freedman - Last Filed: 09/28/17 17:07> Hospitalist Progress Note - Encounter Date of Encounter: 09/28/17 Time of Encounter: 08:00 - Subjective Interval History: Today, Miss Garcia states that she is feeling much improved and that her shortness of breath is decreasing since yesterday, both at rest and exertion. She states that her productive cough is increased, however she is is able to bring up sputum. She admits to headache which is similar to headaches previously, related to sinus pressure. She admits to constipation chronically, with a bowel movement every 2-3 days, her last BM was yesterday. She admits to epigastric and left upper quadrant pressure sensation and early satiety that she believes is due to GERD. She denies fever, chills, nausea, vomiting, chest pain, diarrhea, dysuria, frequency or calf pain. - Exam Vitals: Temp Pulse Resp BP Pulse Ox 97.9 F 82 18 174/78 95 09/28/17 11:09 09/28/17 11:09 09/28/17 11:09 09/28/17 11:09 09/28/17 11:09 Exam: General: Resting comfortably, in no acute distress, AAOx3, pleasant HEENT: Mucus membranes dry. Normocephalic, atraumatic, EOMI, PERRL. Neck soft , supple, trachea midline, no cervical lymphadenopathy. Cardio: RRR, no murmurs, rubs or gallops. Normal S1, S2. No carotid bruits. Pulmonary: Decreased breath sounds, mild expiratory wheezes throughout, good air movement, no rales or rhonchi. No accessory respiratory muscle use. Abdomen: Tenderness to palpation in epigastric and LUQ. Soft, non distended, normal bowel sounds, no guarding, rebound or rigidity. No CVA or suprapubic tenderness. Extremities: 1+ pitting edema bilaterally, no hair on legs, skin dry. Radial and dorsal pedis pulses 2+ and symmetrical, normal capillary refill, no clubbing. No calf tenderness. Neuro: CN 2-12 intact, no focal deficits. Psych: Normal mood and affect, answers questions appropriately - Assessment and Plan (1) Acute exacerbation of CHF (congestive heart failure) Current Visit: Yes Status: Acute Assessment and Plan: Improving History of CHF, BNP on admission of 1769 with increasing shortness of breath. CXR 09/27/17 showed pulmonary vascular congestion with small pleural effusion States that shortness of breath is improving Non compliant with home O2 at 2.5 L/min, is compliant with BiPAP at night I&O's, net output at 240 mL Continue prednisone 40 mg IV Continue monitoring volume status. (2) COPD exacerbation Current Visit: No Status: Resolved Assessment and Plan: Improving History of COPD, current smoker Presented with shortness of breath and wheezing Continue supplemental O2 at 3L nasal cannula Continue BiPAP at night Azithromycin day 1 Prednisone 40 mg Breathing treatments of duonebs Continue home medications: spiriva, symbicort, ventolin (3) Shortness of breath Current Visit: Yes Status: Acute Assessment and Plan: Improving Presented with shortness of breath, wheezing, productive cough Likely due to COPD and CHF DDimer was elevated on admission, V/Q scan was negative to rule out PE Above for plan (4) HTN (hypertension) Current Visit: Yes Status: Chronic Assessment and Plan: Chronic, unstable. Currently 174/78 Continue hydralazine PRN Continue home medications metoprolol, nifedipine and hydralazine scheduled Continue to monitor (5) CKD (chronic kidney disease) stage 4, GFR 15-29 ml/min Current Visit: Yes Status: Acute Assessment and Plan: Chronic, stable Baseline creatinine 2-3, baseline GFR 15-25 Currently at creatinine 2.34 and GFR 21 Continue to monitor renal function as increased use of lasix (6) Diabetes mellitus Current Visit: No Status: Chronic Assessment and Plan: Chronic Continue to monitor glucose to see how affected by prednisone Currently on sliding scale medium dose Will continue to adjust insulin regimen as necessary, consider adding basal insulin Diabetic diet (7) HUSAM (obstructive sleep apnea) Current Visit: Yes Status: Chronic Assessment and Plan: Chronic Continue to use BiPAP at night (8) CAD (coronary artery disease) Current Visit: Yes Status: Chronic Assessment and Plan: History of CAD, 3 previous stents Continue home dose plavix, rosuvastatin (9) Anxiety Current Visit: Yes Status: Acute Assessment and Plan: Chronic and stable Continue home meds duloetine, ranolazine, trazadone, xanax, risperidone DVT Prophylaxis: SQ heparin - Time Spent with Patient Total time spent is greater than 50% in coordination of care (as documented) at patient's floor/unit and/or counseling patient: Internal Medicine: Result - Labs CBC & Chem 7: 09/28/17 00:31 09/28/17 00:31 Labs: Short CBC 09/28/17 Range/Units 00:31 WBC 8.8 (4.3-11.1) K/mcL Hgb 12.2 (11.5-15.4) g/dL Hct 38.3 (35.3-44.9) % Plt Count 234 (140-400) K/mcL BMP 09/28/17 00:31 Sodium 134 L Potassium 3.6 Chloride 102 Carbon Dioxide 24 BUN 26 H Creatinine 2.34 H Glucose 147 H Calcium 9.4 Cardiac Enzymes 09/28/17 09/28/17 Range/Units 00:31 06:02 Troponin I 0.03 0.03 (< 0.04) ng/mL - ABG Interpretation ABG results: PT/INR, D-dimer D-Dimer 1387 ng/mLFEU (0-500) H 09/27/17 18:13 Consult Discharge Plan - Plan Referrals: Jay Valenzuela DO [Primary Care Provider] - <Jesus Seay - Last Filed: 09/28/17 17:32> Hospitalist Progress Note - Encounter Date of Encounter: 09/28/17 - Exam Vitals: Temp Pulse Resp BP Pulse Ox 97.5 F L 77 18 134/58 97 09/28/17 16:30 09/28/17 16:30 09/28/17 16:30 09/28/17 16:30 09/28/17 16:30 - Assessment and Plan (1) Acute exacerbation of CHF (congestive heart failure) Current Visit: Yes Status: Acute (2) COPD exacerbation Current Visit: No Status: Resolved (3) CKD (chronic kidney disease) stage 4, GFR 15-29 ml/min Current Visit: Yes Status: Chronic (4) CAD (coronary artery disease) Current Visit: Yes Status: Chronic (5) HTN (hypertension) Current Visit: Yes Status: Chronic (6) Diabetes mellitus Current Visit: No Status: Chronic (7) HUSAM (obstructive sleep apnea) Current Visit: Yes Status: Chronic (8) Tobacco abuse Current Visit: Yes Status: Chronic (9) Morbid obesity Current Visit: Yes Status: Chronic - Time Spent with Patient Total time spent is greater than 50% in coordination of care (as documented) at patient's floor/unit and/or counseling patient: Internal Medicine: Result - Labs CBC & Chem 7: 09/28/17 00:31 09/28/17 00:31 Labs: Short CBC 09/28/17 Range/Units 00:31 WBC 8.8 (4.3-11.1) K/mcL Hgb 12.2 (11.5-15.4) g/dL Hct 38.3 (35.3-44.9) % Plt Count 234 (140-400) K/mcL BMP 09/28/17 00:31 Sodium 134 L Potassium 3.6 Chloride 102 Carbon Dioxide 24 BUN 26 H Creatinine 2.34 H Glucose 147 H Calcium 9.4 Cardiac Enzymes 09/28/17 09/28/17 Range/Units 00:31 06:02 Troponin I 0.03 0.03 (< 0.04) ng/mL - ABG Interpretation ABG results: PT/INR, D-dimer D-Dimer 1387 ng/mLFEU (0-500) H 09/27/17 18:13 - Attending Attestation I examined this patient and my medical decision-making was reviewed with the Resident Physician on 09/28/17. I agree with the documented findings, disposition and treatment plan as described except to the extent set forth below. Ms Garcia is currently admitted for acute exac COPD,CHF. She remains moderate to high risk due to potential for worsening clinical status. Ms Garcia is beginning to feel better. She denies CP. She has been diuresing. No fever or chills. Some cough. No GI issues. Exam alert Comfortable up in chair. Mucus membranes dry Heart reg and distant Lungs diminished. No wheeze Abd soft Edema present I/P 1. CHF exacerbation 2. COPD Further diagnoses and plan as above <[facility]florencioJina L - Last Filed: 09/28/17 17:07> (1) Acute exacerbation of CHF (congestive heart failure) Qualifiers: Heart failure type: systolic Qualified Code(s): I50.23 - Acute on chronic systolic (congestive) heart failure (4) HTN (hypertension) Qualifiers: Hypertension type: essential hypertension Qualified Code(s): I10 - Essential (primary) hypertension (6) Diabetes mellitus Qualifiers: Diabetes mellitus type: type 2 Diabetes mellitus noxious weeds and pest inspector insulin use: unspecified noxious weeds and pest inspector insulin use status Diabetes mellitus complication status : with kidney complications Diabetes mellitus complication detail: with chronic kidney disease Chronic kidney disease stage: stage 3 (moderate) Qualified Code(s): E11.22 - Type 2 diabetes mellitus with diabetic chronic kidney disease; N18.4 - Chronic kidney disease, stage 4 (severe); Z79.4 - software developer manager (current) use of insulin (8) CAD (coronary artery disease) Qualifiers: Coronary Disease-Associated Artery/Lesion type: [place] artery [place] vs. transplanted heart: [place] heart Associated angina: without angina Qualified Code(s): I25.10 - Atherosclerotic heart disease of [place] coronary artery without angina pectoris <Jesus Seay - Last Filed: 09/28/17 17:32> (1) Acute exacerbation of CHF (congestive heart failure) Qualifiers: Heart failure type: diastolic Qualified Code(s): I50.23 - Acute on chronic systolic (congestive) heart failure (4) CAD (coronary artery disease) Qualifiers: Coronary Disease-Associated Artery/Lesion type: [place] artery [place] vs. transplanted heart: [place] heart Associated angina: without angina Qualified Code(s): I25.10 - Atherosclerotic heart disease of [place] coronary artery without angina pectoris (5) HTN (hypertension) Qualifiers: Hypertension type: essential hypertension Qualified Code(s): I10 - Essential (primary) hypertension (6) Diabetes mellitus Qualifiers: Diabetes mellitus type: type 2 Diabetes mellitus noxious weeds and pest inspector insulin use: with noxious weeds and pest inspector use Diabetes mellitus complication status: with kidney complications Diabetes mellitus complication detail: with chronic kidney disease Chronic kidney disease stage: stage 4 (severe) Qualified Code(s): E11.22 - Type 2 diabetes mellitus with diabetic chronic kidney disease; N18.4 - Chronic kidney disease, stage 4 (severe); Z79.4 - [facility] (current) use of insulin
[2017-09-28] MEDS: Budesonide/Formoterol 160/4.5 1 PUFF INH IH SCH ×2 (15:46→23:16)
[2017-09-28] MEDS: Tiotropium 18 MCG inhalation IH SCH (15:46)
[2017-09-28] MEDS: Famotidine 20 MG TABLET PO SCH ×2 (16:19→21:50)
[2017-09-28] MEDS: Fenofibrate 54 MG TABLET PO SCH (16:19)
[2017-09-28] MEDS: Ranolazine 500 MG TAB.ER.12H PO SCH ×2 (16:19→21:50)
[2017-09-28] MEDS: risperiDONE 1 MG TABLET PO SCH (16:19)
[2017-09-28] MEDS: ALPRAZolam 1 MG TABLET PO SCH ×2 (16:19→21:50)
[2017-09-28] MEDS: NIFEdipine XL (24 HR) 60 MG TAB.ER.24 PO SCH (16:20)
[2017-09-28] MEDS: hydrALAZINE 25 MG TABLET PO SCH (16:21)
[2017-09-28] MEDS: traZODone 50 MG TABLET PO SCH (21:50)
[2017-09-29] MEDS: Azithromycin 500 MG in D5% in Water 250 ML IVPB SCH (00:34)
[2017-09-29] MEDS: hydrALAZINE 25 MG TABLET PO SCH ×4 (00:35→21:22)
[2017-09-29] MEDS: *HR* Heparin 5,000 UNIT/ML VIAL SQ SCH ×3 (00:35→16:42)
[2017-09-29] MEDS ORDERED: Acetaminophen 325 MG TABLET PO PRN (01:37)
[2017-09-29] MEDS: Ipratropium/Albuterol Neb 3 ML IH SCH ×4 (03:59→22:40)
[2017-09-29 04:12] LABS: Basophils % 0.2 %; Eosinophils % 0.1 %; Hematocrit 34.5 % (35.3-44.9); Hemoglobin 11.1 g/dL (11.5-15.4); Immature Granulocytes % 0.9 % (0-4); Lymphocytes # 1.3 K/mcL (0.6-4.6); Lymphocytes % 11.2 %; Mean Corpuscular HGB Conc 32.2 g/dL (31.6-35.5); Mean Corpuscular Hemoglobin 26.7 pg (28.0-33.3); Mean Corpuscular Volume 82.9 fL (83.0-100.0); Monocytes # 0.8 K/mcL (0.0-1.3); Monocytes % 7.1 %; Neutrophils # 9.5 K/mcL (1.6-8.9); Platelet Count 224 K/mcL (140-400); Red Blood Count 4.16 M/mcL (3.82-4.97); Red Cell Distribution Width 17.2 % (11.5-14.5); Segmented Neutrophils % 80.5 %
[2017-09-29 04:32] LABS: Calcium 9.5 mg/dL (8.6-10.3); Potassium 3.7 mEq/L (3.5-5.1)
[2017-09-29] MEDS: ALPRAZolam 1 MG TABLET PO SCH ×2 (08:23→21:22)
[2017-09-29] MEDS: Fenofibrate 54 MG TABLET PO SCH (08:23)
[2017-09-29] MEDS: risperiDONE 1 MG TABLET PO SCH (08:23)
[2017-09-29] MEDS: predniSONE 20 MG TABLET PO SCH (08:23)
[2017-09-29] MEDS: NIFEdipine XL (24 HR) 60 MG TAB.ER.24 PO SCH (08:24)
[2017-09-29] MEDS: Ranolazine 500 MG TAB.ER.12H PO SCH ×2 (08:24→21:22)
[2017-09-29] MEDS: Furosemide 40 MG/4 ML VIAL IVP SCH (08:24)
[2017-09-29] MEDS: Insulin LISPRO 300 UNITS/3 ML VIAL SQ SCH ×4 (08:25→21:23)
--- NOTE | 2017-09-29 09:43 | Internal Med Progress Note ---
<Jina Freedman - Last Filed: 09/29/17 14:15> Hospitalist Progress Note - Encounter Date of Encounter: 09/29/17 Time of Encounter: 08:45 - Subjective Interval History: Today, hospital day 2, Miss Garcia is sitting up in bed comfortably. She states that she is continuing to improve and feel better. She states that her cough is increasing and continues to be productive. She states that shortness of breath at rest is unchanged, however shortness of breath on exertion is decreasing. She states that she is having pain in her back when she has a coughing spell which is relieved when at rest. She admits to chills today but not fever. She states that her epigastric discomfort she had yesterday is no longer present, however she anticipates it's return after eating lunch. She denies nausea, vomiting, lightheadedness, headache, nausea, vomiting, abdominal pain, dysuria, frequency, constipation or calf pain. - Exam Vitals: Temp Pulse Resp BP Pulse Ox 97.9 F 56 18 177/76 94 09/29/17 07:42 09/29/17 07:42 09/29/17 07:42 09/29/17 07:42 09/29/17 07:42 Exam: General: Resting comfortably, in no acute distress, AAOx3, pleasant HEENT: Normocephalic, atraumatic, EOMI, mucus membranes moist. Neck soft, supple, trachea midline, no cervical lymphadenopathy. Cardio: RRR, no murmurs, rubs or gallops. Normal S1, S2. No carotid bruits. Pulmonary: Diffuse wheezes present, decreased since yesterday, mild rales at lung bases bilaterally, worse on right. No accessory respiratory muscle use. Abdomen: Soft, non tender, non distended, normal bowel sounds, no guarding, rebound or rigidity. No CVA or suprapubic tenderness. Extremities: 1+ pitting edema bilaterally. Radial and dorsal pedis pulses 2+ and symmetrical, normal capillary refill, no clubbing. No calf tenderness. Neuro: CN 2-12 intact, no focal deficits. Psych: Normal mood and affect, answers questions appropriately - Assessment and Plan (1) Acute exacerbation of CHF (congestive heart failure) Current Visit: Yes Status: Acute Assessment and Plan: Improving History of CHF, BNP on admission of 1770 with increasing shortness of breath. CXR 09/27/17 showed pulmonary vascular congestion with small pleural effusion Rales continue to be present on lung bases, bilateral edema decreasing Shortness of breath on exertion improving Lasix 40 mg BID, however creatinine up today, lasix decreased to 40 mg qd Net output today is -840 mL Continue to monitor volume status (2) COPD exacerbation Current Visit: No Status: Acute Assessment and Plan: Continues to improve History of COPD, continues to smoke Mild diffuse expiratory wheezing WBC increased today at 11.8, up from 8.8. Azithromycin day 2 of 5 Prednisone 40 mg, will do 5 total doses. Continue supplemental O2, currently spO2 94% on 2L/min NC Continue BiPAP at night Continue duoneb, symbicort, ventolin Discontinued spiriva Added mucinex for expectorant (3) Shortness of breath Current Visit: Yes Status: Acute Assessment and Plan: Continues to improve Likely secondary to COPD and CHF Difficulty bring up sputum today Added mucinex as expectorant Above for plan (4) HTN (hypertension) Current Visit: Yes Status: Chronic Assessment and Plan: Uncontrolled, chronic Currently 174/78 Currently on metoprolol 50 mg BID, nifedipine 60 mg qd, hydralazine 75 mg q8, PRN hydralazine 10 mg but uncontrolled Increased hydralazine to 100 mg TID today Continue to monitor (5) CKD (chronic kidney disease) stage 4, GFR 15-29 ml/min Current Visit: Yes Status: Chronic Assessment and Plan: Chronic Baseline creatinine 2-3, baseline GFR 15-25 Creatinine increased to 2.58 from 2.34 yesterday, GFR decreased to 19 from 21 Currently on lasix 40 mg bid, will decrease to lasix 40 mg qd today Continue to monitor (6) Diabetes mellitus Current Visit: No Status: Chronic Assessment and Plan: Chronic Glucose currently at 201, highest overnight was 223 Currently on sliding scale, medium dose. Adding levemir 10 units as basal insulin Continue to monitor Diabetic diet (7) HUSAM (obstructive sleep apnea) Current Visit: Yes Status: Chronic Assessment and Plan: Chronic, stable Continue BiPAP (8) CAD (coronary artery disease) Current Visit: Yes Status: Chronic Assessment and Plan: Chronic, stable Denies chest pain or pressure History of CAD, 3 previous stents Continue home dose plavix, rosuvastatin (9) Anxiety Current Visit: Yes Status: Acute Assessment and Plan: Chronic and remains controlled Continue home meds duloxetine, ranolazine, trazadone, xanax, risperidone DVT Prophylaxis: SQ heparin - Time Spent with Patient Total time spent is greater than 50% in coordination of care (as documented) at patient's floor/unit and/or counseling patient: Internal Medicine: Result - Labs CBC & Chem 7: 09/29/17 03:44 09/29/17 03:44 Labs: Short CBC 09/29/17 Range/Units 03:44 WBC 11.8 H (4.3-11.1) K/mcL Hgb 11.1 L (11.5-15.4) g/dL Hct 34.5 L (35.3-44.9) % Plt Count 224 (140-400) K/mcL Neutrophils # 9.5 H (1.6-8.9) K/mcL BMP 09/29/17 03:44 Sodium 135 L Potassium 3.7 Chloride 102 Carbon Dioxide 25 BUN 35 H Creatinine 2.58 H Glucose 201 H Calcium 9.5 - ABG Interpretation ABG results: PT/INR, D-dimer D-Dimer 1387 ng/mLFEU (0-500) H 09/27/17 18:13 Consult Discharge Plan - Plan Referrals: Jay Valenzuela DO [Primary Care Provider] - <Jesus Seay - Last Filed: 09/29/17 17:48> Hospitalist Progress Note - Encounter Date of Encounter: 09/29/17 - Exam Vitals: Temp Pulse Resp BP Pulse Ox 98 F 74 18 185/89 94 09/29/17 16:14 09/29/17 16:14 09/29/17 16:14 09/29/17 16:14 09/29/17 16:14 - Assessment and Plan (1) Acute exacerbation of CHF (congestive heart failure) Current Visit: Yes Status: Acute (2) COPD exacerbation Current Visit: No Status: Acute (3) CKD (chronic kidney disease) stage 4, GFR 15-29 ml/min Current Visit: Yes Status: Chronic (4) CAD (coronary artery disease) Current Visit: Yes Status: Chronic (5) HTN (hypertension) Current Visit: Yes Status: Chronic (6) Diabetes mellitus Current Visit: No Status: Chronic (7) HUSAM (obstructive sleep apnea) Current Visit: Yes Status: Chronic (8) Tobacco abuse Current Visit: Yes Status: Chronic (9) Morbid obesity Current Visit: Yes Status: Chronic - Time Spent with Patient Total time spent is greater than 50% in coordination of care (as documented) at patient's floor/unit and/or counseling patient: Internal Medicine: Result - Labs CBC & Chem 7: 09/29/17 03:44 09/29/17 03:44 Labs: Short CBC 09/29/17 Range/Units 03:44 WBC 11.8 H (4.3-11.1) K/mcL Hgb 11.1 L (11.5-15.4) g/dL Hct 34.5 L (35.3-44.9) % Plt Count 224 (140-400) K/mcL Neutrophils # 9.5 H (1.6-8.9) K/mcL BMP 09/29/17 03:44 Sodium 135 L Potassium 3.7 Chloride 102 Carbon Dioxide 25 BUN 35 H Creatinine 2.58 H Glucose 201 H Calcium 9.5 - ABG Interpretation ABG results: PT/INR, D-dimer D-Dimer 1387 ng/mLFEU (0-500) H 09/27/17 18:13 - Attending Attestation I examined this patient and my medical decision-making was reviewed with the Resident Physician on 09/29/17. I agree with the documented findings, disposition and treatment plan as described except to the extent set forth below. Ms Garcia is currently admitted for acute exac COPD and CHF. She remains moderate to high risk due to potential for worsening clinical status. Ms Garcia is resting at this time. She seems to be breathing a little better. No fever or chills. Up and moving more. No CP. No GI issues. Exam alert Comfortable at rest Mucus membranes dry Heart distant Lungs with rales and wheeze bilaterally Abd soft Edema present I/P 1. CHF exac 2. COPD exac Further diagnoses and plan as above. <Jina Freedman - Last Filed: 09/29/17 14:15> (1) Acute exacerbation of CHF (congestive heart failure) Qualifiers: Heart failure type: diastolic Qualified Code(s): I50.33 - Acute on chronic diastolic (congestive) heart failure (4) HTN (hypertension) Qualifiers: Hypertension type: essential hypertension Qualified Code(s): I10 - Essential (primary) hypertension (6) Diabetes mellitus Qualifiers: Diabetes mellitus type: type 2 Diabetes mellitus sweet pickle maker insulin use: with sweet pickle maker use Diabetes mellitus complication status: with kidney complications Diabetes mellitus complication detail: with chronic kidney disease Chronic kidney disease stage: stage 4 (severe) Qualified Code(s): E11.22 - Type 2 diabetes mellitus with diabetic chronic kidney disease; N18.4 - Chronic kidney disease, stage 4 (severe); Z79.4 - half-way (current) use of insulin (8) CAD (coronary artery disease) Qualifiers: Coronary Disease-Associated Artery/Lesion type: [place] artery [place] vs. transplanted heart: [place] heart Associated angina: without angina Qualified Code(s): I25.10 - Atherosclerotic heart disease of [place] coronary artery without angina pectoris <Jesus Seay - Last Filed: 09/29/17 17:48> (1) Acute exacerbation of CHF (congestive heart failure) Qualifiers: Heart failure type: diastolic Qualified Code(s): I50.33 - Acute on chronic diastolic (congestive) heart failure (4) CAD (coronary artery disease) Qualifiers: Coronary Disease-Associated Artery/Lesion type: [place] artery [place] vs. transplanted heart: [place] heart Associated angina: without angina Qualified Code(s): I25.10 - Atherosclerotic heart disease of [place] coronary artery without angina pectoris (5) HTN (hypertension) Qualifiers: Hypertension type: essential hypertension Qualified Code(s): I10 - Essential (primary) hypertension (6) Diabetes mellitus Qualifiers: Diabetes mellitus type: type 2 Diabetes mellitus sweet pickle maker insulin use: with sweet pickle maker use Diabetes mellitus complication status: with kidney complications Diabetes mellitus complication detail: with chronic kidney disease Chronic kidney disease stage: stage 4 (severe) Qualified Code(s): E11.22 - Type 2 diabetes mellitus with diabetic chronic kidney disease; N18.4 - Chronic kidney disease, stage 4 (severe); Z79.4 - life skills educator (current) use of insulin
[2017-09-29] MEDS: Budesonide/Formoterol 160/4.5 1 PUFF INH IH SCH ×2 (10:48→22:40)
[2017-09-29] MEDS: Tiotropium 18 MCG inhalation IH SCH (10:50)
[2017-09-29] MEDS: Insulin DETEMIR 100 UNIT/ML X5UNITS SQ SCH (13:56)
--- NOTE | 2017-09-29 17:45 | Electrocardiograph Report ---
[place] [id number] Test Date: 2017-09-27 Pat Name: Alanis Holyoke Department: Room: 2NE17 Gender: F Bilingual Spanish Inbound Sales: : 1950 Requested By: Shaye Vance Order Number: [id number] Reading MD: Jina Conrad Measurements Intervals [place] Rate: 65 P: 31 DC: 144 QRS: 18 QRSD: 94 T: 143 QT: 442 QTc: 460 Interpretive Statements Sinus rhythm RSR' in V1 or V2, probably normal variant Nonspecific T abnormalities, lateral leads Minimal ST elevation, anterior leads Electronically Signed On 09-29-2017 17:43:09 EDT by Jina Conrad
[2017-09-29] MEDS: Famotidine 20 MG TABLET PO SCH (21:21)
[2017-09-29] MEDS: traZODone 50 MG TABLET PO SCH (21:22)
[2017-09-30] MEDS: *HR* Heparin 5,000 UNIT/ML VIAL SQ SCH ×3 (00:53→17:24)
[2017-09-30] MEDS: Ipratropium/Albuterol Neb 3 ML IH SCH ×4 (04:00→22:51)
[2017-09-30 05:08] LABS: Basophils % 0.3 %; Eosinophils % 0.1 %; Hematocrit 35.4 % (35.3-44.9); Hemoglobin 11.3 g/dL (11.5-15.4); Immature Granulocytes % 0.6 % (0-4); Lymphocytes # 1.5 K/mcL (0.6-4.6); Lymphocytes % 13.9 %; Mean Corpuscular HGB Conc 31.9 g/dL (31.6-35.5); Mean Corpuscular Hemoglobin 26.7 pg (28.0-33.3); Mean Corpuscular Volume 83.5 fL (83.0-100.0); Mean Platelet Volume 10.1 fL (9.4-12.4); Monocytes # 0.8 K/mcL (0.0-1.3); Neutrophils # 8.7 K/mcL (1.6-8.9); Platelet Count 229 K/mcL (140-400); Red Blood Count 4.24 M/mcL (3.82-4.97); Red Cell Distribution Width 17.2 % (11.5-14.5); Segmented Neutrophils % 78.1 %
[2017-09-30 05:27] LABS: Calcium 9.6 mg/dL (8.6-10.3); Potassium 4.1 mEq/L (3.5-5.1)
[2017-09-30] MEDS: predniSONE 20 MG TABLET PO SCH (08:48)
[2017-09-30] MEDS: Azithromycin 250 MG TABLET PO SCH (08:49)
[2017-09-30] MEDS: NIFEdipine XL (24 HR) 60 MG TAB.ER.24 PO SCH (08:49)
[2017-09-30] MEDS: Ranolazine 500 MG TAB.ER.12H PO SCH ×2 (08:49→20:28)
[2017-09-30] MEDS: risperiDONE 1 MG TABLET PO SCH (08:49)
[2017-09-30] MEDS: ALPRAZolam 1 MG TABLET PO SCH ×2 (08:49→20:27)
[2017-09-30] MEDS: Fenofibrate 54 MG TABLET PO SCH (08:50)
[2017-09-30] MEDS: Insulin LISPRO 300 UNITS/3 ML VIAL SQ SCH ×4 (08:50→20:37)
[2017-09-30] MEDS: Insulin DETEMIR 100 UNIT/ML X5UNITS SQ SCH (08:52)
[2017-09-30] MEDS: hydrALAZINE 25 MG TABLET PO SCH ×3 (08:53→20:28)
[2017-09-30] MEDS ORDERED: Furosemide 40 MG/4 ML VIAL IVP SCH (09:00)
[2017-09-30] MEDS: Budesonide/Formoterol 160/4.5 1 PUFF INH IH SCH ×2 (11:03→22:51)
--- NOTE | 2017-09-30 14:59 | Internal Med Progress Note ---
Hospitalist Progress Note - Encounter Date of Encounter: 09/30/17 Time of Encounter: 14:30 - Subjective Interval History: Ms Garcia is currently admitted for acute exac CHF and COPD. Her creatinine is increasing slowly. She remains moderate to high risk due to potential for worsening clinical status. Ms Garcia is breathing somewhat better. No fever or chills. Some cough. No GI issues. Creatinine has increased some again. - Exam Vitals: Temp Pulse Resp BP Pulse Ox 97.6 F 68 18 172/76 95 09/30/17 11:19 09/30/17 11:19 09/30/17 11:19 09/30/17 11:19 09/30/17 11:19 Exam: General: Alert and oriented. Resting comfortably in bed at this time. Skin: Normal color, no rash, no lesions. Head: NC, atraumatic Eyes: EOM, pupils equal, round and reactive. ENT: Mucus membranes moist. No lesion. Cardiovascular: Normal S1 & S2, no rubs, murmurs or gallops. No JVD. Pulse regular. Very distant heart sounds. Lungs: Normal breath sounds, now wheeze heard at this time. Faint crackles. Good inspiratory effort Abdomen: Soft, non-tender, no rigidity. Normal bowel sounds Extremities: No deformity or tenderness, no joint swelling or clubbing. Edema present but seems better. Neurological: Normal cognition and motor skills. No focal deficit noted. Pulses: Carotid and radial pulses normal +2. - Assessment and Plan (1) Acute exacerbation of CHF (congestive heart failure) Current Visit: Yes Status: Acute Assessment and Plan: Seems to be slowly improving. Lasix decreased yesterday but creatinine still elevated. Will hold Lasix at this time. Recheck lab in AM. Follow clinically for now. Last echo 08/03 with EF 60-65% (2) COPD exacerbation Current Visit: No Status: Acute Assessment and Plan: Overall has been slowly improving. She is on PO Prednisone and antibiotics. Will complete a course. Bipap study ordered for tonight. (3) CKD (chronic kidney disease) stage 4, GFR 15-29 ml/min Current Visit: Yes Status: Chronic Assessment and Plan: Creatinine has been slowly increasing with diuresis. Recheck tomorrow. (4) CAD (coronary artery disease) Current Visit: Yes Status: Chronic Assessment and Plan: Chronic issue. No symptoms at this time. (5) HTN (hypertension) Current Visit: Yes Status: Chronic Assessment and Plan: Blood pressure has been uncontrolled. Will adjust meds today. (6) Diabetes mellitus Current Visit: No Status: Chronic Assessment and Plan: Blood sugar uncontrolled. Insulin adjusted (7) HUSAM (obstructive sleep apnea) Current Visit: Yes Status: Chronic Assessment and Plan: Currently has a CPAP at home. Will do Bipap study tonight. (8) Tobacco abuse Current Visit: Yes Status: Chronic Assessment and Plan: Cessation counselling. (9) Morbid obesity Current Visit: Yes Status: Chronic Assessment and Plan: Chronic issue (10) Medical non-compliance Current Visit: Yes Status: Chronic Assessment and Plan: Reportedly has not been wearing oxygen at home. DVT Prophylaxis: SQ heparin - Time Spent with Patient Total time spent is greater than 50% in coordination of care (as documented) at patient's floor/unit and/or counseling patient: Internal Medicine: Result - Labs CBC & Chem 7: 09/30/17 04:15 09/30/17 04:15 Labs: Short CBC 09/30/17 Range/Units 04:15 WBC 11.1 (4.3-11.1) K/mcL Hgb 11.3 L (11.5-15.4) g/dL Hct 35.4 (35.3-44.9) % Plt Count 229 (140-400) K/mcL Neutrophils # 8.7 (1.6-8.9) K/mcL BMP 09/30/17 04:15 Sodium 138 Potassium 4.1 Chloride 103 Carbon Dioxide 29 BUN 45 H Creatinine 2.60 H Glucose 152 H Calcium 9.6 - ABG Interpretation ABG results: PT/INR, D-dimer D-Dimer 1387 ng/mLFEU (0-500) H 09/27/17 18:13 Consult Discharge Plan - Plan Instructions: Heart Failure (DC), Acute Respiratory Distress Syndrome (DC), Diabetes Mellitus Type 2 in Adults (DC), Using Oxygen at Home (DC), Chronic Obstructive Pulmonary Disease (DC), Chronic Hypertension (DC), Hypoxia (GEN), Anxiety (DC) Referrals: Jay Valenzuela DO [Primary Care Provider] - (1) Acute exacerbation of CHF (congestive heart failure) Qualifiers: Heart failure type: diastolic Qualified Code(s): I50.33 - Acute on chronic diastolic (congestive) heart failure (4) CAD (coronary artery disease) Qualifiers: Coronary Disease-Associated Artery/Lesion type: [place] artery [place] vs. transplanted heart: [place] heart Associated angina: without angina Qualified Code(s): I25.10 - Atherosclerotic heart disease of [place] coronary artery without angina pectoris (5) HTN (hypertension) Qualifiers: Hypertension type: essential hypertension Qualified Code(s): I10 - Essential (primary) hypertension (6) Diabetes mellitus Qualifiers: Diabetes mellitus type: type 2 Diabetes mellitus [facility] insulin use: with assistant terminal manager use Diabetes mellitus complication status: with kidney complications Diabetes mellitus complication detail: with chronic kidney disease Chronic kidney disease stage: stage 4 (severe) Qualified Code(s): E11.22 - Type 2 diabetes mellitus with diabetic chronic kidney disease; N18.4 - Chronic kidney disease, stage 4 (severe); Z79.4 - prison (current) use of insulin
[2017-09-30] MEDS: traZODone 50 MG TABLET PO SCH (20:28)
[2017-09-30] MEDS: Famotidine 20 MG TABLET PO SCH (20:28)
[2017-10-01] MEDS: *HR* Heparin 5,000 UNIT/ML VIAL SQ SCH ×4 (00:34→23:32)
[2017-10-01 01:32] LABS: Hematocrit 38.2 % (35.3-44.9); Hemoglobin 12.1 g/dL (11.5-15.4); Mean Corpuscular HGB Conc 31.7 g/dL (31.6-35.5); Mean Corpuscular Hemoglobin 27.1 pg (28.0-33.3); Mean Corpuscular Volume 85.7 fL (83.0-100.0); Mean Platelet Volume 10.1 fL (9.4-12.4); Platelet Count 245 K/mcL (140-400); Red Blood Count 4.46 M/mcL (3.82-4.97); Red Cell Distribution Width 17.2 % (11.5-14.5)
[2017-10-01 01:43] LABS: Calcium 9.8 mg/dL (8.6-10.3); Potassium 4.2 mEq/L (3.5-5.1)
[2017-10-01] MEDS: Ipratropium/Albuterol Neb 3 ML IH SCH ×4 (03:44→22:41)
[2017-10-01 05:37] LABS: ABG Base Excess 3 mEq/L (-2 to 3); ABG HCO3 29 mEq/L (21-27); ABG Oxygen Saturation 91 % (95-98); ABG PCO2 51 mmHg (35-45); ABG PH 7.37 pH Units (7.32-7.45); ABG PO2 64 mmHg (85-104); ABG TCO2 31 mEq/L (20-26)
[2017-10-01] MEDS: ALPRAZolam 1 MG TABLET PO SCH ×2 (08:02→20:55)
[2017-10-01] MEDS: risperiDONE 1 MG TABLET PO SCH (08:02)
[2017-10-01] MEDS: Ranolazine 500 MG TAB.ER.12H PO SCH ×2 (08:02→20:54)
[2017-10-01] MEDS: NIFEdipine XL (24 HR) 60 MG TAB.ER.24 PO SCH (08:02)
[2017-10-01] MEDS: predniSONE 20 MG TABLET PO SCH (08:03)
[2017-10-01] MEDS: Insulin LISPRO 300 UNITS/3 ML VIAL SQ SCH ×4 (08:03→21:48)
[2017-10-01] MEDS: Azithromycin 250 MG TABLET PO SCH (08:03)
[2017-10-01] MEDS: hydrALAZINE 25 MG TABLET PO SCH ×3 (08:03→20:56)
[2017-10-01] MEDS: Fenofibrate 54 MG TABLET PO SCH (08:03)
[2017-10-01] MEDS: Budesonide/Formoterol 160/4.5 1 PUFF INH IH SCH ×2 (11:26→22:43)
--- NOTE | 2017-10-01 11:41 | Internal Med Progress Note ---
<Jina Freedman - Last Filed: 10/01/17 17:50> Hospitalist Progress Note - Encounter Date of Encounter: 10/01/17 Time of Encounter: 09:00 - Subjective Interval History: Today, Miss Garcia states no change in shortness of breath from yesterday, it is present at rest and worse on exertion. However, she does state that she is feeling a bit better today than yesterday overall. She states that her cough is improving and less productive. She denies any chest or back pain with cough. She denies pleuritic chest pain, nausea, vomiting, fever, chills, weakness, parathesias, abdominal pain, suprapubic pain, dysuria, frequency or diarrhea. She does state that she has chronic constipation, usually 2-3 days between BM and at this point, her last BM was 09/27. - Exam Vitals: Temp Pulse Resp BP Pulse Ox 98.7 F 75 17 168/69 95 10/01/17 07:08 10/01/17 07:08 10/01/17 07:08 10/01/17 07:08 10/01/17 07:08 Exam: General: Resting comfortably, in no acute distress, AAOx3, pleasant, nasal cannula in place. HEENT: Normocephalic, atraumatic, EOMI, PERRL, mucus membranes dry. Neck soft, supple, trachea midline, no cervical lymphadenopathy. Cardio: RRR, no murmurs, rubs or gallops. Normal S1, S2. No carotid bruits. Pulmonary: Diffuse wheezes and rales at lung bases bilaterally. No accessory muscle use. Abdomen: Soft, non tender, non distended, normal bowel sounds, no guarding, rebound or rigidity. No CVA or suprapubic tenderness. Extremities: Bilateral 1+ lower extremity edema. Radial and dorsal pedis pulses 2+ and symmetrical, normal capillary refill, no clubbing. No calf tenderness. Neuro: CN 2-12 intact, no focal deficits. Psych: Normal mood and affect, answers questions appropriately - Assessment and Plan (1) Acute exacerbation of CHF (congestive heart failure) Current Visit: Yes Status: Acute Assessment and Plan: Improved, states shortness of breath unchanged but feeling better overall History of CHF, BNP on admission of 1770 with increasing shortness of breath. CXR 09/27/17 showed pulmonary vascular congestion with small pleural effusion Non compliant with home O2 at 2.5 L/min Currently compliant with BiPAP at night BiPAP study for home use of BiPAP performed, she did not qualify. I&O's, net balance at +600 Lasix 40 mg IV restarted due to fluid overload, was stopped yesterday due to declining renal function. Nephrology consulted to assist with management of lasix due to declining renal function. Fluid restriction of 1,800 mL Continue monitoring volume status. (2) COPD exacerbation Current Visit: No Status: Acute Assessment and Plan: Improving, states that shortness of breath unchanged but cough is decreasing and no longer productive History of COPD, currently smoker. Azithromycin discontinued Today is last dose of prednisone, will be stopped tomorrow. continue supplemental O2, BiPAP at night, duonebs, mucinex, symbicort, ventolin. Levaquin started, day 1. (3) HTN (hypertension) Current Visit: Yes Status: Chronic Assessment and Plan: Uncontrolled, currently 208/88 Gave one dose of labetalol 20 mg with no change Started Nitro drip continue hydralazine PRN and scheduled, metoprolol, nifedipine. Continue to monitor (4) CKD (chronic kidney disease) stage 4, GFR 15-29 ml/min Current Visit: Yes Status: Chronic Assessment and Plan: Chronic, baseline creatinine at 1.41 Currently creatinine 2.36, most likely increasing due to lasix Lasix held yesterday but restarted today at 40 mg IV due to fluid overload and increasing blood pressure Nephrology consulted (5) Diabetes mellitus Current Visit: No Status: Chronic Assessment and Plan: Uncontrolled, is currently 269 Continue levemir 10 units Increased sliding scale to high dose Continue to monitor, likely to be more controlled once prednisone is stopped tomorrow. (6) HUSAM (obstructive sleep apnea) Current Visit: Yes Status: Chronic Assessment and Plan: Chronic Continue BiPAP at night Did not qualify for BiPAP at home (7) CAD (coronary artery disease) Current Visit: Yes Status: Chronic Assessment and Plan: Chronic, stable History of CAD, 3 previous stents Continue home dose plavix, rosuvastatin (8) Anxiety Current Visit: Yes Status: Acute Assessment and Plan: Chronic and stable continue home medications (9) Constipation Current Visit: Yes Status: Acute (10) Constipation Current Visit: Yes Status: Acute Assessment and Plan: History of chronic constipation Last BM 09/27/17 Started senna plus (11) Tobacco abuse Current Visit: Yes Status: Chronic Assessment and Plan: Current smoker, discussed tobacco cessation DVT Prophylaxis: Sq heparin - Time Spent with Patient Total time spent is greater than 50% in coordination of care (as documented) at patient's floor/unit and/or counseling patient: Internal Medicine: Result - Labs CBC & Chem 7: 10/01/17 00:45 10/01/17 00:45 Labs: Short CBC 10/01/17 Range/Units 00:45 WBC 11.9 H (4.3-11.1) K/mcL Hgb 12.1 (11.5-15.4) g/dL Hct 38.2 (35.3-44.9) % Plt Count 245 (140-400) K/mcL BMP 10/01/17 00:45 Sodium 135 L Potassium 4.2 Chloride 101 Carbon Dioxide 27 BUN 51 H Creatinine 2.63 H Glucose 192 H Calcium 9.8 - ABG Interpretation ABG results: ABG ABG pH 7.37 pH Units (7.32-7.45) 10/01/17 05:34 ABG pCO2 51 mmHg (35-45) H 10/01/17 05:34 ABG pO2 64 mmHg (85-104) L 10/01/17 05:34 ABG O2 Saturation 91 % (95-98) L 10/01/17 05:34 PT/INR, D-dimer D-Dimer 1387 ng/mLFEU (0-500) H 09/27/17 18:13 Consult Discharge Plan - Plan Instructions: Heart Failure (DC), Acute Respiratory Distress Syndrome (DC), Diabetes Mellitus Type 2 in Adults (DC), Using Oxygen at Home (DC), Chronic Obstructive Pulmonary Disease (DC), Chronic Hypertension (DC), Hypoxia (GEN), Anxiety (DC) Referrals: Jay Valenzuela DO [Primary Care Provider] - <Jesus Seay - Last Filed: 10/01/17 19:24> Hospitalist Progress Note - Encounter Date of Encounter: 10/01/17 - Exam Vitals: Temp Pulse Resp BP Pulse Ox 98.7 F 88 17 222/88 97 10/01/17 07:08 10/01/17 16:18 10/01/17 16:18 10/01/17 16:18 10/01/17 16:18 - Assessment and Plan (1) Acute exacerbation of CHF (congestive heart failure) Current Visit: Yes Status: Acute (2) COPD exacerbation Current Visit: No Status: Acute (3) CKD (chronic kidney disease) stage 4, GFR 15-29 ml/min Current Visit: Yes Status: Chronic (4) CAD (coronary artery disease) Current Visit: Yes Status: Chronic (5) HTN (hypertension) Current Visit: Yes Status: Chronic (6) Diabetes mellitus Current Visit: No Status: Chronic (7) HUSAM (obstructive sleep apnea) Current Visit: Yes Status: Chronic (8) Tobacco abuse Current Visit: Yes Status: Chronic (9) Morbid obesity Current Visit: Yes Status: Chronic (10) Medical non-compliance Current Visit: Yes Status: Chronic - Time Spent with Patient Total time spent is greater than 50% in coordination of care (as documented) at patient's floor/unit and/or counseling patient: Internal Medicine: Result - Labs CBC & Chem 7: 10/01/17 00:45 10/01/17 00:45 Labs: Short CBC 10/01/17 Range/Units 00:45 WBC 11.9 H (4.3-11.1) K/mcL Hgb 12.1 (11.5-15.4) g/dL Hct 38.2 (35.3-44.9) % Plt Count 245 (140-400) K/mcL BMP 10/01/17 00:45 Sodium 135 L Potassium 4.2 Chloride 101 Carbon Dioxide 27 BUN 51 H Creatinine 2.63 H Glucose 192 H Calcium 9.8 - ABG Interpretation ABG results: ABG ABG pH 7.37 pH Units (7.32-7.45) 10/01/17 05:34 ABG pCO2 51 mmHg (35-45) H 10/01/17 05:34 ABG pO2 64 mmHg (85-104) L 10/01/17 05:34 ABG O2 Saturation 91 % (95-98) L 10/01/17 05:34 PT/INR, D-dimer D-Dimer 1387 ng/mLFEU (0-500) H 09/27/17 18:13 - Attending Attestation I examined this patient and my medical decision-making was reviewed with the Resident Physician on 10/01/17. I agree with the documented findings, disposition and treatment plan as described except to the extent set forth below. Ms Garcia is currently admitted for acute CHF and COPD. Her creatinine has increased. She remains moderate to high risk due to potential for worsening clinical status. Ms Garcia is about the same. She says her breathing is OK. No CP. BP has been markedly elevated today. Creatinine up a little. No fever or chills. No GI issues. Exam alert Comfortable Mucus membranes dry Heart distant Lungs with bibasilar rales Abd soft Edema present I/P 1 CHF exacerbation - restart Lasix 2. COPD - change abx. Completed steroids 3. HTN uncontrolled. Meds adjusted Further diagnoses and plan as above. <Jina Freedman - Last Filed: 10/01/17 17:50> (1) Acute exacerbation of CHF (congestive heart failure) Qualifiers: Heart failure type: diastolic Qualified Code(s): I50.33 - Acute on chronic diastolic (congestive) heart failure (3) HTN (hypertension) Qualifiers: Hypertension type: essential hypertension Qualified Code(s): I10 - Essential (primary) hypertension (5) Diabetes mellitus Qualifiers: Diabetes mellitus type: type 2 Diabetes mellitus [facility] insulin use: with long line teamster use Diabetes mellitus complication status: with kidney complications Diabetes mellitus complication detail: with chronic kidney disease Chronic kidney disease stage: stage 4 (severe) Qualified Code(s): E11.22 - Type 2 diabetes mellitus with diabetic chronic kidney disease; N18.4 - Chronic kidney disease, stage 4 (severe); Z79.4 - snf (current) use of insulin (7) CAD (coronary artery disease) Qualifiers: Coronary Disease-Associated Artery/Lesion type: [place] artery [place] vs. transplanted heart: [place] heart Associated angina: without angina Qualified Code(s): I25.10 - Atherosclerotic heart disease of [place] coronary artery without angina pectoris <Jesus Seay - Last Filed: 10/01/17 19:24> (1) Acute exacerbation of CHF (congestive heart failure) Qualifiers: Heart failure type: diastolic Qualified Code(s): I50.33 - Acute on chronic diastolic (congestive) heart failure (4) CAD (coronary artery disease) Qualifiers: Coronary Disease-Associated Artery/Lesion type: [place] artery [place] vs. transplanted heart: [place] heart Associated angina: without angina Qualified Code(s): I25.10 - Atherosclerotic heart disease of [place] coronary artery without angina pectoris (5) HTN (hypertension) Qualifiers: Hypertension type: essential hypertension Qualified Code(s): I10 - Essential (primary) hypertension (6) Diabetes mellitus Qualifiers: Diabetes mellitus type: type 2 Diabetes mellitus long line teamster insulin use: with [facility]p use Diabetes mellitus complication status: with kidney complications Diabetes mellitus complication detail: with chronic kidney disease Chronic kidney disease stage: stage 4 (severe) Qualified Code(s): E11.22 - Type 2 diabetes mellitus with diabetic chronic kidney disease; N18.4 - Chronic kidney disease, stage 4 (severe); 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
[2017-10-01] MEDS: Insulin DETEMIR 100 UNIT/ML X5UNITS SQ SCH (12:08)
[2017-10-01] MEDS ORDERED: *HR* Labetalol 20 MG/4 ML SYRINGE IVP ONE (13:57)
[2017-10-01] MEDS: Furosemide 40 MG/4 ML VIAL IVP SCH (15:38)
[2017-10-01] MEDS: Levofloxacin 500 MG/100 ML 500 MG/100 ML BAG IVPB SCH (15:38)
[2017-10-01] MEDS: Sennosides/Docusate Sodium TABLET PO SCH (15:38)
[2017-10-01] MEDS ORDERED: Nitroglycerin 25 MG/250 ML INFUS..BTL IVC SCH (17:30)
[2017-10-01] MEDS: Famotidine 20 MG TABLET PO SCH (20:55)
[2017-10-01] MEDS: traZODone 50 MG TABLET PO SCH (20:56)
[2017-10-02] MEDS: Ipratropium/Albuterol Neb 3 ML IH SCH ×4 (04:05→22:37)
[2017-10-02] MEDS: ALPRAZolam 1 MG TABLET PO SCH ×2 (08:04→20:03)
[2017-10-02] MEDS: *HR* Heparin 5,000 UNIT/ML VIAL SQ SCH ×3 (08:04→23:57)
[2017-10-02] MEDS: risperiDONE 1 MG TABLET PO SCH (08:04)
[2017-10-02] MEDS: Sennosides/Docusate Sodium TABLET PO SCH (08:04)
[2017-10-02] MEDS: NIFEdipine XL (24 HR) 60 MG TAB.ER.24 PO SCH (08:04)
[2017-10-02] MEDS: Fenofibrate 54 MG TABLET PO SCH (08:04)
[2017-10-02] MEDS: Ranolazine 500 MG TAB.ER.12H PO SCH ×2 (08:04→20:02)
[2017-10-02] MEDS: Furosemide 40 MG/4 ML VIAL IVP SCH (08:05)
[2017-10-02] MEDS: Insulin LISPRO 300 UNITS/3 ML VIAL SQ SCH ×4 (08:05→20:09)
[2017-10-02 08:08] LABS: Basophils % 0.4 %; Eosinophils % 0.4 %; Hematocrit 34.9 % (35.3-44.9); Hemoglobin 11.3 g/dL (11.5-15.4); Immature Granulocytes % 1.4 % (0-4); Lymphocytes # 2.1 K/mcL (0.6-4.6); Lymphocytes % 21.7 %; Mean Corpuscular HGB Conc 32.4 g/dL (31.6-35.5); Mean Corpuscular Hemoglobin 27.8 pg (28.0-33.3); Mean Corpuscular Volume 85.7 fL (83.0-100.0); Mean Platelet Volume 9.6 fL (9.4-12.4); Monocytes # 0.8 K/mcL (0.0-1.3); Monocytes % 7.7 %; Neutrophils # 6.6 K/mcL (1.6-8.9); Platelet Count 217 K/mcL (140-400); Red Blood Count 4.07 M/mcL (3.82-4.97); Red Cell Distribution Width 16.7 % (11.5-14.5); Segmented Neutrophils % 68.4 %
[2017-10-02] MEDS: hydrALAZINE 25 MG TABLET PO SCH ×3 (08:10→20:08)
[2017-10-02] MEDS: Insulin DETEMIR 100 UNIT/ML X5UNITS SQ SCH (08:11)
[2017-10-02 08:24] LABS: Calcium 9.4 mg/dL (8.6-10.3); Potassium 3.8 mEq/L (3.5-5.1)
[2017-10-02] MEDS: Budesonide/Formoterol 160/4.5 1 PUFF INH IH SCH ×2 (11:27→22:37)
[2017-10-02] MEDS ORDERED: NIFEdipine XL (24 HR) 60 MG TAB.ER.24 PO SCH (11:41)
[2017-10-02] MEDS ORDERED: NIFEdipine XL (24 HR) 30 MG TAB.ER.24 PO ONE (11:48)
--- NOTE | 2017-10-02 11:48 | Nephrology Consult Note ---
<Zaki Vizcaino - Last Filed: 10/02/17 11:40> Date of Encounter: 10/02/17 Time of Encounter: 11:10 Assessment and Plan (1) Acute kidney injury superimposed on CKD Status: Acute Patient follows up with Dr. Patricio for stage 3 CKD. She reports that she is compliant with her lasix 40mg PO daily. Does admit to worsening lower extremity edema for the last 3 weeks. Fluid overload and TAMEKA likely secondary to COPD exacerbation and non-compliance with oxygen. Reviewed her I/Os, she appears to be diuresing well with cumulative -2489 ml balance. Agree to continue Lasix 40mg IVP daily. Strict I/Os. Sodium restriction diet. Reviewed retroperitoneal ultrasound of the kidneys and bladder from 06/05/17 which demonstrates 2 cysts in the left kidney with the largest measuring 2 cm in diameter. Increased renal cortical echogenicity consistent with renal disease. Normal bladder. NO repeat u/s required at this time. Pending PTH, vitamin. D, UA, microalbumin, total protein/creatinine ratio. (2) COPD exacerbation Status: Acute improving with steroids and antibiotics. Treat per primary team. (3) CHF exacerbation Status: Acute Last echo 08/03 with EF 60-65% Kidney function stable. Continue with IV lasix. (4) CAD (coronary artery disease) Current Visit: Yes Status: Chronic Assessment and Plan: Chronic issue. No symptoms at this time. (5) HTN (hypertension) Current Visit: Yes Status: Chronic Assessment and Plan: Blood pressure has been uncontrolled. Treat per primary. (6) Diabetes mellitus Current Visit: No Status: Chronic Assessment and Plan: Improved. continue current regimen (7) HUSAM (obstructive sleep apnea) Current Visit: Yes Status: Chronic Assessment and Plan: Qualifiers: Qualified Code(s): I50.9 - Heart failure, unspecified History of Present Illness - Reason for Consult Consult date: 10/02/17 Acute Kidney Injury, Chronic Kidney Disease - Chief Complaint Shortness of breath - History of Present Illness 67F with PMHx HTN, HUSAM, CKD stage 3, COPD, diabetes, anxiety, presented to ED for 3 weeks of shortness of breath and chest pressure. Patient also had complaints of worsening lower extremity swelling. Patient has been non- compliant at home with her Oxygen but reports that she has been complaint with her Lasix 40mg PO daily. She follows up with Dr. Patricio for her CKD, with her last visit more than 5 months ago. In the emergency room she was found to have a BNP of 1770, d-dimer 1387, troponins undetectable. Chest x-ray showed pulmonary vascular congestion with a small pleural effusion but no edema. VQ scan demonstrated low probability of PE. She was admitted for management of CHF exacerbation. Today, she denies fever, chills, nausea, vomiting, diarrhea, abdominal pain. She also reports improvement of SOB and Chest pressure. She is voiding without difficulty and able to tolerate PO intake. No further complaints. Past Med Surg Social Fam HX - Past Medical History Medical history: arthritis, CHF, COPD, diabetes, GERD, hyperlipidemia, hypertension, RA, renal disease Psychiatric history: anxiety, bipolar - Past Surgical History Surgical History: angioplasty/stent, appendectomy, , cataract Additional surgical history: 1 STENT - Social History Smoking Status: Current every day smoker Smokeless Tobacco Status: No Alcohol use: none Drug use: none - Family History Mother Living Status: Still Living Hx Family Cardiac Disorders: Yes Hx Family Respiratory Disorders: Yes (copd) Hx Family Cancer: Yes Hx Family Neurologic Disorders: Yes (alzheimer) Medications and Allergies ALPRAZolam [Xanax 1 MG Tablet] 1 mg PO BID 04/15/17 [History] Clopidogrel [Plavix] 75 mg PO DAILY 04/15/17 [History] DULoxetine [Cymbalta] 30 mg PO BID 04/15/17 [History] Famotidine [Heartburn Prevention] 20 mg PO BID 04/15/17 [History] Fenofibrate Nanocrystallized [Triglide] 160 mg PO DAILY 04/15/17 [History] Trazodone HCl 100 mg PO HS 04/15/17 [History] risperiDONE [Risperidone] 1 mg PO DAILY 04/15/17 [History] Insulin Regular U-500 [HumuLIN R U-500] 6 - 8 unit SQ DAILY 07/23/17 [History] Metoprolol Tartrate [Lopressor] 50 mg PO BID 07/23/17 [History] Ranolazine [Ranexa] 500 mg PO BID 07/23/17 [History] Rosuvastatin [Crestor] 40 mg PO HS 07/23/17 [History] Albuterol Sulfate [Ventolin Hfa] 2 puff IH Q6H PRN 09/28/17 [History] Budesonide/Formoterol 160/4.5 [Symbicort 160/4.5] 2 puff IH BIDR 09/28/17 [ History] Furosemide [Lasix] 40 mg PO DAILY 09/28/17 [History] HYDROcodone/Acet 5/325 mg [[place] 5-325 mg] 1 tab PO BID PRN 09/28/17 [History] Potassium Chloride [K-Tab ER] 20 meq PO BID 09/28/17 [History] Tiotropium [Spiriva] 1 puff IH DAILY 09/28/17 [History] Ergocalciferol (VITAMIN D2) [Drisdol (50,000 Unit)] 50,000 unit PO QWEEK #4 capsule 10/04/17 [Rx] Hydralazine HCl 100 mg PO TID #90 tablet 10/04/17 [Rx] NIFEdipine XL (24 HR) [Procardia XL] 90 mg PO DAILY 30 Days #45 tab.er.24 [Rx] 3 Allergy/AdvReac Type Severity Reaction Status Date / Time morphine Allergy Hallucinati Verified 09/27/17 17:49 ng Sulfa (Sulfonamide Allergy Rash Verified 09/27/17 17:49 Antibiotics) Review of Systems All Systems: reviewed and no additional remarkable complaints except as stated Constitutional: as per HPI Nose, mouth and throat: as per HPI Cardiovascular: as per HPI Respiratory: as per HPI Gastrointestinal: as per HPI Genitourinary Female: as per HPI Musculoskeletal: as per HPI Integumentary: as per HPI Neurological: as per HPI Exam - Vital Signs Vital signs: Initial Vital Signs Temp Pulse Resp BP Pulse Ox 98.3 F 72 28 185/92 93 09/27/17 17:49 09/27/17 17:49 09/27/17 17:49 09/27/17 17:49 09/27/17 17:49 Vital Signs - Last 8 Hours Temp Pulse Resp BP Pulse Ox 10/02/17 11:29 20 94 10/02/17 10:46 98 F 64 20 178/82 93 10/02/17 06:55 97.6 F 67 20 147/68 96 10/02/17 04:41 98.0 F 69 18 175/78 96 10/02/17 04:07 16 Intake and Output 10/01/17 10/02/17 10/02/17 23:59 07:59 15:59 Intake Total 297 / 297 24 / 24 240 / 240 Output Total 400 / 400 450 / 450 Balance 297 / 297 -376 / -376 -210 / -210 Intake: IV Fluids 24 / 24 Nitroglycerin Premix 25 MG/250 24 / 24 ML 25 mg In 250 ml @ 5 MCG/MIN 3 mls/hr IVC .Q24H [facility]ION Rx#: [id number] Oral 240 / 240 0 / 0 240 / 240 Output: Urine 400 / 400 450 / 450 Other: Meal Dinner Breakfast Percent of Meal Consumed 90% 75% # Voids 0 0 Weight 130.6 kg Blood Glucose* 250 101 122 Patient Weight 10/02/17 23:59 Weight 130.6 kg - General Appearance Exam: General: Alert and oriented. Resting comfortably in bed at this time. Skin: Normal color, no rash, no lesions. Head: NC, atraumatic ENT: Mucus membranes moist. No lesion. Cardiovascular: Normal S1 & S2, no rubs, murmurs or gallops. No JVD. Pulse regular. distant heart sounds. Lungs: Normal breath sounds, no wheezing or crackles. Good inspiratory effort Abdomen: Soft, non-tender, no rigidity. Normal bowel sounds Extremities: No deformity or tenderness, no joint swelling or clubbing. 1+ edema bilateral lower extremities. Neurological: Normal cognition and motor skills. No focal deficit noted. Pulses: Carotid and radial pulses normal +2. Results - Lab Results 10/02/17 07:34 10/02/17 07:34 Most recent lab results ABG pH 7.37 pH Units (7.32-7.45) 10/01/17 05:34 ABG pCO2 51 mmHg (35-45) H 10/01/17 05:34 ABG pO2 64 mmHg (85-104) L 10/01/17 05:34 ABG HCO3 29 mEq/L (21-27) H 10/01/17 05:34 ABG O2 Saturation 91 % (95-98) L 10/01/17 05:34 Calcium 9.4 mg/dL (8.6-10.3) 10/02/17 07:34 Consult Discharge Plan - Plan Instructions: Nifedipine (By mouth), Ergocalciferol (By mouth), Hydralazine ( By mouth), Heart Failure (DC), Acute Respiratory Distress Syndrome (DC), Diabetes Mellitus Type 2 in Adults (DC), Using Oxygen at Home (DC), Chronic Obstructive Pulmonary Disease (DC), Chronic Hypertension (DC), Hypoxia (GEN), Anxiety (DC) Additional Instructions: Monitor and record b/p daily Referrals: Jay Valenzuela DO [Primary Care Provider] - (please call for follow up appointment within one week of discharge) Sagar Christie DO [Non-Partnered Physician] - (call for appointment within 1-2 weeks ) Prescriptions: Ergocalciferol (VITAMIN D2) [Drisdol (50,000 Unit)] 50,000 unit PO QWEEK #4 capsule Hydralazine HCl 100 mg PO TID #90 tablet NIFEdipine XL (24 HR) [Procardia XL] 90 mg PO DAILY 30 Days #45 tab.er.24 <Rosa Aiken - Last Filed: 10/11/17 23:12> Date of Encounter: 10/02/17 Assessment and Plan (1) Acute kidney injury superimposed on CKD Status: Acute (2) CHF exacerbation Status: Acute Qualifiers: Qualified Code(s): I50.9 - Heart failure, unspecified (3) CKD (chronic kidney disease) stage 3, GFR 30-59 ml/min Status: Chronic (4) HTN (hypertension) Status: Acute Qualifiers: Hypertension type: essential hypertension Qualified Code(s): I10 - Essential (primary) hypertension Exam - Vital Signs Vital signs: Initial Vital Signs Temp Pulse Resp BP Pulse Ox 98.3 F 72 28 185/92 93 09/27/17 17:49 09/27/17 17:49 09/27/17 17:49 09/27/17 17:49 09/27/17 17:49 Results - Lab Results 10/02/17 07:34 10/04/17 05:49 Most recent lab results ABG pH 7.37 pH Units (7.32-7.45) 10/01/17 05:34 ABG pCO2 51 mmHg (35-45) H 10/01/17 05:34 ABG pO2 64 mmHg (85-104) L 10/01/17 05:34 ABG HCO3 29 mEq/L (21-27) H 10/01/17 05:34 ABG O2 Saturation 91 % (95-98) L 10/01/17 05:34 Calcium 9.1 mg/dL (8.6-10.3) 10/04/17 05:49 Urine Creatinine 42 mg/dL 10/02/17 16:30 Urine Total Protein 395 mg/dL (1-14) H 10/02/17 16:30 - Attending Attestation I examined this patient and my medical decision-making was reviewed with the Resident Physician. I agree with the documented findings, disposition and treatment plan as described except to the extent set forth below. Pt seen and examined and in brief; 67 y o female with PMH of DM, HTN, HUSAM, COPD and stage [address] christie admitted with progressive SOB and LE edema. Renal consulted to help with diuresis. On exam LE edema bilat noted with lungs with good areation and slightly decreased BS bilat bases. So far, renal fxn appears within range of fluctuation at baseline. Negative fluid balance already being achieved with lasix 40mg iv daily, will continue for now. Strict I /Os advised. Will check urine for protein. Will check PTH and vitamin d levels.
--- NOTE | 2017-10-02 15:03 | Internal Med Progress Note ---
<Jina Freedman - Last Filed: 10/02/17 16:32> Hospitalist Progress Note - Encounter Date of Encounter: 10/02/17 Time of Encounter: 08:00 - Subjective Interval History: Today is hospital day 5, Miss Garcia states that she is feeling better overall. She states that the shortness of breath is improving at rest and exertion as well as decreased coughing. She admits orthopnea. She denies chest pain, palpitations, nausea, vomiting, fever, chills, lightheadedness, abdominal pain, diarrhea, dysuria, frequency. She denies having a bowel movement as of yet. She has no questions or concerns at this time - Exam Vitals: Temp Pulse Resp BP Pulse Ox 98 F 64 20 178/82 94 10/02/17 10:46 10/02/17 10:46 10/02/17 11:29 10/02/17 10:46 10/02/17 11:29 Exam: General: Resting comfortably, in no acute distress, AAOx3, pleasant HEENT: Mucus membranes dry. Normocephalic, atraumatic, EOMI. Neck soft, supple , trachea midline, no cervical lymphadenopathy. Cardio: RRR, no murmurs, rubs or gallops. Normal S1, S2. No carotid bruits. Pulmonary: Decreased breath sounds bilaterally, diffuse expiratory wheezes, no rales. No accessory respiratory muscle use. Abdomen: Soft, non tender, non distended, normal bowel sounds, no guarding, rebound or rigidity. No CVA or suprapubic tenderness. Extremities: Trace pitting edema bilaterally. Radial and dorsal pedis pulses 2+ and symmetrical, normal capillary refill, no clubbing. No calf tenderness. Neuro: CN 2-12 intact, no focal deficits. Psych: Normal mood and affect, answers questions appropriately - Assessment and Plan (1) Acute exacerbation of CHF (congestive heart failure) Current Visit: Yes Status: Acute Assessment and Plan: Improving, states that shortness of breath improving Compliant with BiPAP at night and nasal cannula during day I&O's monitored, current net balance -546 Per nephrology: Continue lasix 40 mg IVP, continue to watch renal function Limited ECHO to compare EF to last ECHO on 07/2017 which showed EF 60-65% Fluid restriction 1,800 mL Continue monitoring volume status (2) COPD exacerbation Current Visit: Yes Status: Acute Assessment and Plan: Improving History of COPD, current smoker Continue supplemental O2, BiPAP, duonebs, mucinex, symbicort, ventolin Levaquin day 2 (3) HTN (hypertension) Current Visit: Yes Status: Acute Assessment and Plan: Improving, 147/68 continue hydralazine PRN 10 mg, hydralazine scheduled 100 mg q8hrs, metoprolol 50 mg BID Increase dose of nifedipine to 90 mg Continue to monitor (4) CKD (chronic kidney disease) stage 4, GFR 15-29 ml/min Current Visit: Yes Status: Chronic Assessment and Plan: Chronic, baseline creatinine 1.41 Currently creatinine 2.4 which is decreased from yesterday Per nephrology: continue lasix, continue to monitor renal function (5) Diabetes mellitus Current Visit: No Status: Chronic Assessment and Plan: Improving Glucose at 122. Continue levemir 10 units, high dose sliding scale Continue to monitor (6) HUSAM (obstructive sleep apnea) Current Visit: Yes Status: Chronic Assessment and Plan: Chronic, stable, continue BiPAP (7) CAD (coronary artery disease) Current Visit: Yes Status: Chronic Assessment and Plan: Chronic, stable History of CAD, 3 stents previously Continue home meds plavix, rosuvastatin, ranolazine, fenofibrate (8) Anxiety Current Visit: Yes Status: Chronic Assessment and Plan: Chronic and stable continue home medications (9) Constipation Current Visit: Yes Status: Acute Assessment and Plan: History of constipation Started senna plus yesterday No BM today, no BM since 09/27/17 (10) Constipation Current Visit: Yes Status: Acute (11) Tobacco abuse Current Visit: Yes Status: Chronic Assessment and Plan: Discussed cessation DVT Prophylaxis: SQ heparin - Time Spent with Patient Total time spent is greater than 50% in coordination of care (as documented) at patient's floor/unit and/or counseling patient: Internal Medicine: Result - Labs CBC & Chem 7: 10/02/17 07:34 10/02/17 07:34 Labs: Short CBC 10/02/17 Range/Units 07:34 WBC 9.7 (4.3-11.1) K/mcL Hgb 11.3 L (11.5-15.4) g/dL Hct 34.9 L (35.3-44.9) % Plt Count 217 (140-400) K/mcL Neutrophils # 6.6 (1.6-8.9) K/mcL BMP 10/02/17 07:34 Sodium 139 Potassium 3.8 Chloride 104 Carbon Dioxide 30 H BUN 48 H Creatinine 2.40 H Glucose 108 H Calcium 9.4 - ABG Interpretation ABG results: ABG ABG pH 7.37 pH Units (7.32-7.45) 10/01/17 05:34 ABG pCO2 51 mmHg (35-45) H 10/01/17 05:34 ABG pO2 64 mmHg (85-104) L 10/01/17 05:34 ABG O2 Saturation 91 % (95-98) L 10/01/17 05:34 PT/INR, D-dimer D-Dimer 1387 ng/mLFEU (0-500) H 09/27/17 18:13 Consult Discharge Plan - Plan Instructions: Heart Failure (DC), Acute Respiratory Distress Syndrome (DC), Diabetes Mellitus Type 2 in Adults (DC), Using Oxygen at Home (DC), Chronic Obstructive Pulmonary Disease (DC), Chronic Hypertension (DC), Hypoxia (GEN), Anxiety (DC) Referrals: Jay Valenzuela DO [Primary Care Provider] - <Jesus Seay - Last Filed: 10/02/17 16:55> Hospitalist Progress Note - Encounter Date of Encounter: 10/02/17 - Exam Vitals: Temp Pulse Resp BP Pulse Ox 97.6 F 70 18 153/67 96 10/02/17 16:25 10/02/17 16:25 10/02/17 16:25 10/02/17 16:25 10/02/17 16:25 - Assessment and Plan (1) Acute exacerbation of CHF (congestive heart failure) Current Visit: Yes Status: Acute (2) COPD exacerbation Current Visit: Yes Status: Acute (3) CKD (chronic kidney disease) stage 4, GFR 15-29 ml/min Current Visit: Yes Status: Chronic (4) CAD (coronary artery disease) Current Visit: Yes Status: Chronic (5) HTN (hypertension) Current Visit: Yes Status: Acute (6) Diabetes mellitus Current Visit: No Status: Chronic (7) HUSAM (obstructive sleep apnea) Current Visit: Yes Status: Chronic (8) Tobacco abuse Current Visit: Yes Status: Chronic (9) Morbid obesity Current Visit: Yes Status: Chronic (10) Medical non-compliance Current Visit: Yes Status: Chronic - Time Spent with Patient Total time spent is greater than 50% in coordination of care (as documented) at patient's floor/unit and/or counseling patient: Internal Medicine: Result - Labs CBC & Chem 7: 10/02/17 07:34 10/02/17 07:34 Labs: Short CBC 10/02/17 Range/Units 07:34 WBC 9.7 (4.3-11.1) K/mcL Hgb 11.3 L (11.5-15.4) g/dL Hct 34.9 L (35.3-44.9) % Plt Count 217 (140-400) K/mcL Neutrophils # 6.6 (1.6-8.9) K/mcL BMP 10/02/17 07:34 Sodium 139 Potassium 3.8 Chloride 104 Carbon Dioxide 30 H BUN 48 H Creatinine 2.40 H Glucose 108 H Calcium 9.4 - ABG Interpretation ABG results: ABG ABG pH 7.37 pH Units (7.32-7.45) 10/01/17 05:34 ABG pCO2 51 mmHg (35-45) H 10/01/17 05:34 ABG pO2 64 mmHg (85-104) L 10/01/17 05:34 ABG O2 Saturation 91 % (95-98) L 10/01/17 05:34 PT/INR, D-dimer D-Dimer 1387 ng/mLFEU (0-500) H 09/27/17 18:13 - Attending Attestation I examined this patient and my medical decision-making was reviewed with the Resident Physician on 10/02/17. I agree with the documented findings, disposition and treatment plan as described except to the extent set forth below. Ms Garcia is currently admitted for acute exac CHF and COPD. She remains moderate to high risk due to potential for worsening clinical status. Ms Garcia says she is breathing somewhat better. No fever or chills. Less edema. Tolerating diuresis. No GI issues. Exam alert. Comfortable lying flat in bed. Mucus membranes dry Heart not tachy Lungs clear at this time Abd soft and nontender Minimal edema now No rash No neuro deficit I/P 1. Acute exac CHF 2. Acute exac COPD Further diagnoses and plan as above. <Jina Freedman - Last Filed: 10/02/17 16:32> (1) Acute exacerbation of CHF (congestive heart failure) Qualifiers: Heart failure type: diastolic Qualified Code(s): I50.33 - Acute on chronic diastolic (congestive) heart failure (3) HTN (hypertension) Qualifiers: Hypertension type: essential hypertension Qualified Code(s): I10 - Essential (primary) hypertension (5) Diabetes mellitus Qualifiers: Diabetes mellitus type: type 2 Diabetes mellitus [employer] insulin use: with half-way use Diabetes mellitus complication status: with kidney complications Diabetes mellitus complication detail: with chronic kidney disease Chronic kidney disease stage: stage 4 (severe) Qualified Code(s): E11.22 - Type 2 diabetes mellitus with diabetic chronic kidney disease; N18.4 - Chronic kidney disease, stage 4 (severe); Z79.4 - group home (current) use of insulin (7) CAD (coronary artery disease) Qualifiers: Coronary Disease-Associated Artery/Lesion type: [place] artery [place] vs. transplanted heart: [place] heart Associated angina: without angina Qualified Code(s): I25.10 - Atherosclerotic heart disease of [place] coronary artery without angina pectoris <Jesus Seay - Last Filed: 10/02/17 16:55> (1) Acute exacerbation of CHF (congestive heart failure) Qualifiers: Heart failure type: diastolic Qualified Code(s): I50.33 - Acute on chronic diastolic (congestive) heart failure (4) CAD (coronary artery disease) Qualifiers: Coronary Disease-Associated Artery/Lesion type: [place] artery [place] vs. transplanted heart: [place] heart Associated angina: without angina Qualified Code(s): I25.10 - Atherosclerotic heart disease of [place] coronary artery without angina pectoris (5) HTN (hypertension) Qualifiers: Hypertension type: essential hypertension Qualified Code(s): I10 - Essential (primary) hypertension (6) Diabetes mellitus Qualifiers: Diabetes mellitus type: type 2 Diabetes mellitus half-way insulin use: with half-way use Diabetes mellitus complication status: with kidney complications Diabetes mellitus complication detail: with chronic kidney disease Chronic kidney disease stage: stage 4 (severe) Qualified Code(s): E11.22 - Type 2 diabetes mellitus with diabetic chronic kidney disease; N18.4 - Chronic kidney disease, stage 4 (severe); Z79.4 - long term (current) use of insulin
[2017-10-02 18:03] LABS: Bilirubin,Urine Negative (Negative); Blood,Urine Negative (Negative); Clarity,Urine Clear (Clear); Color,Urine Yellow (Yellow); Glucose,Urine (UA) 250 mg/dL (Normal); Ketones,Urine Negative (Negative); Leukocyte Esterase,Urine Negative (Negative); Nitrite,Urine Negative (Negative); PH,Urine 6.5 pH Units (5.0-8.0); Protein,Urine >=300 mg/dL (Neg-Trace); Urobilinogen,Urine Normal (Normal)
[2017-10-02 18:05] LABS: Bacteria,Urine None Seen per hpf (None-Few); Hyaline Casts,Urine None Seen per lpf (None-Few); RBC,Urine 0-3 per hpf (0-3); Squamous Epithelial Cell,Urine Many per lpf (None-Few)
[2017-10-02 18:36] LABS: Creatinine,Urine 42 mg/dL; Microalbumin,Urine > 1350 mg/L; Protein/Creatinine Ratio,Urine 9.41 mg/mg (0.00-0.20)
[2017-10-02] MEDS: traZODone 50 MG TABLET PO SCH (20:03)
[2017-10-02] MEDS: Famotidine 20 MG TABLET PO SCH (20:03)
[2017-10-03] MEDS: Ipratropium/Albuterol Neb 3 ML IH SCH ×4 (04:41→23:24)
[2017-10-03] MEDS: hydrALAZINE 25 MG TABLET PO SCH ×3 (07:02→20:28)
[2017-10-03] MEDS: Ranolazine 500 MG TAB.ER.12H PO SCH ×2 (08:17→20:18)
[2017-10-03] MEDS: *HR* Heparin 5,000 UNIT/ML VIAL SQ SCH ×2 (08:17→17:21)
[2017-10-03] MEDS: NIFEdipine XL (24 HR) 30 MG TAB.ER.24 PO SCH (08:17)
[2017-10-03] MEDS: Fenofibrate 54 MG TABLET PO SCH (08:17)
[2017-10-03] MEDS: risperiDONE 1 MG TABLET PO SCH (08:17)
[2017-10-03] MEDS: Furosemide 40 MG/4 ML VIAL IVP SCH (08:17)
[2017-10-03] MEDS: ALPRAZolam 1 MG TABLET PO SCH ×2 (08:17→20:20)
[2017-10-03] MEDS: Insulin DETEMIR 100 UNIT/ML X5UNITS SQ SCH (08:25)
[2017-10-03] MEDS: Sennosides/Docusate Sodium TABLET PO SCH (08:25)
--- NOTE | 2017-10-03 10:39 | Internal Med Progress Note ---
<Enrique Pacheco - Last Filed: 10/03/17 13:55> Hospitalist Progress Note - Encounter Date of Encounter: 10/03/17 Time of Encounter: 10:37 - Subjective Interval History: Patient was seen and examined at bedside. She states that she is feeling better than she did yesterday. She reports that her shortness of breath is improving. She also says that her Coughing has decreased. States that she slept well last night. Denies having any lower extremity swelling. No complaints at this time. - Exam Vitals: Temp Pulse Resp BP Pulse Ox 98 F 88 17 180/92 93 10/03/17 07:10 10/03/17 07:10 10/03/17 07:10 10/03/17 10:09 10/03/17 07:10 Exam: General: Conversant, no acute distress HEENT: Mucus membranes dry. Normocephalic, atraumatic, EOMI Cardio: RRR, + S1, S2. No murmurs rubs or gallops. Pulmonary: Diminished breath sounds bilaterally, no wheezes rales or rhonchi. Abdomen: Soft, non tender, non distended, normal bowel sounds Extremities: Trace pitting edema bilaterally - Assessment and Plan (1) COPD exacerbation Current Visit: Yes Status: Acute Assessment and Plan: History of COPD, current smoker - Continue supplemental O2, BiPAP, duonebs, mucinex, symbicort, ventolin - Levaquin day 3 (2) HTN (hypertension) Current Visit: Yes Status: Acute Assessment and Plan: - Blood pressure continues to be elevated; blood pressure reached 213/86 this morning Plan: - Hydralazine 100 mg every 8 hours - Hydralazine 10 mg when necessary for SBP greater than 160 - Nifedipine 90 mg - Metoprolol 50 mg twice a day (3) HUSAM (obstructive sleep apnea) Current Visit: Yes Status: Chronic Assessment and Plan: - Chronic, stable, continue BiPAP (4) Morbid obesity Current Visit: Yes Status: Chronic (5) CAD (coronary artery disease) Current Visit: Yes Status: Chronic Assessment and Plan: Chronic, stable - History of CAD, 3 stents previously - Continue home meds plavix, rosuvastatin, ranolazine, fenofibrate (6) Diabetes mellitus Current Visit: No Status: Chronic Assessment and Plan: Continue levemir 10 units, high dose SSI (7) Acute exacerbation of CHF (congestive heart failure) Current Visit: Yes Status: Acute Assessment and Plan: - Presented with shortness of breath likely secondary to CHF exacerbation - Patients clinical status is improving; denies shortness of breath today - Compliant with BiPAP at night, currently on O2 via nasal cannula - Total I/O balance is -4570 Plan: Per the recommendations of nephrology, continue Lasix 40 mg IV daily Fluid restriction 1,800 mL Continue monitoring volume status - Time Spent with Patient Total time spent is greater than 50% in coordination of care (as documented) at patient's floor/unit and/or counseling patient: Internal Medicine: Result - Labs CBC & Chem 7: 10/02/17 07:34 10/02/17 07:34 Labs: Urine 10/02/17 Range/Units 16:30 Urine Color Yellow (Yellow) Urine Clarity Clear (Clear) Urine pH 6.5 (5.0-8.0) pH Units Ur Specific [place] 1.010 (1.010-1.025) Urine Protein >=300 H (Neg-Trace) mg/dL Urine Glucose (UA) 250 H (Normal) mg/dL - ABG Interpretation ABG results: ABG ABG pH 7.37 pH Units (7.32-7.45) 10/01/17 05:34 ABG pCO2 51 mmHg (35-45) H 10/01/17 05:34 ABG pO2 64 mmHg (85-104) L 10/01/17 05:34 ABG O2 Saturation 91 % (95-98) L 10/01/17 05:34 PT/INR, D-dimer D-Dimer 1387 ng/mLFEU (0-500) H 09/27/17 18:13 - Impressions Impressions Echocardiogram Limited Views 10/02/17 14:56 Impressions: LVEF 60-65%. Normal LV chamber size and function. Mild concentric left ventricular hypertrophy. Limited study for LV function. Valves not assessed. Left Ventricular Wall Motion: Rest Echo Findings All wall segments showed normal motion. Findings: Study Quality * Technically adequate exam. ECG Findings * Normal sinus rhythm. Left Ventricle * LVEF 60-65%. * Normal LV chamber size and function. * Mild concentric left ventricular hypertrophy. Right Ventricle * Normal right ventricular structure and function. Aorta * Normally sized aortic root. Pericardium * The pericardium appears normal. Consult Discharge Plan - Plan Instructions: Heart Failure (DC), Acute Respiratory Distress Syndrome (DC), Diabetes Mellitus Type 2 in Adults (DC), Using Oxygen at Home (DC), Chronic Obstructive Pulmonary Disease (DC), Chronic Hypertension (DC), Hypoxia (GEN), Anxiety (DC) Referrals: Jay Valenzuela DO [Primary Care Provider] - <Jesus Seay - Last Filed: 10/03/17 15:41> Hospitalist Progress Note - Encounter Date of Encounter: 10/03/17 - Exam Vitals: Temp Pulse Resp BP Pulse Ox 98.7 F 87 19 196/71 92 10/03/17 11:40 10/03/17 11:40 10/03/17 11:40 10/03/17 11:40 10/03/17 11:40 - Assessment and Plan (1) Acute exacerbation of CHF (congestive heart failure) Current Visit: Yes Status: Acute (2) COPD exacerbation Current Visit: Yes Status: Acute (3) HTN (hypertension) Current Visit: Yes Status: Acute (4) CAD (coronary artery disease) Current Visit: Yes Status: Chronic (5) HUSAM (obstructive sleep apnea) Current Visit: Yes Status: Chronic (6) Diabetes mellitus Current Visit: No Status: Chronic (7) Morbid obesity Current Visit: Yes Status: Chronic - Time Spent with Patient Total time spent is greater than 50% in coordination of care (as documented) at patient's floor/unit and/or counseling patient: Internal Medicine: Result - Labs CBC & Chem 7: 10/02/17 07:34 10/02/17 07:34 Labs: Urine 10/02/17 Range/Units 16:30 Urine Color Yellow (Yellow) Urine Clarity Clear (Clear) Urine pH 6.5 (5.0-8.0) pH Units Ur Specific [place] 1.010 (1.010-1.025) Urine Protein >=300 H (Neg-Trace) mg/dL Urine Glucose (UA) 250 H (Normal) mg/dL - ABG Interpretation ABG results: ABG ABG pH 7.37 pH Units (7.32-7.45) 10/01/17 05:34 ABG pCO2 51 mmHg (35-45) H 10/01/17 05:34 ABG pO2 64 mmHg (85-104) L 10/01/17 05:34 ABG O2 Saturation 91 % (95-98) L 10/01/17 05:34 PT/INR, D-dimer D-Dimer 1387 ng/mLFEU (0-500) H 09/27/17 18:13 - Impressions Impressions Echocardiogram Limited Views 10/02/17 14:56 Impressions: LVEF 60-65%. Normal LV chamber size and function. Mild concentric left ventricular hypertrophy. Limited study for LV function. Valves not assessed. Left Ventricular Wall Motion: Rest Echo Findings All wall segments showed normal motion. Findings: Study Quality * Technically adequate exam. ECG Findings * Normal sinus rhythm. Left Ventricle * LVEF 60-65%. * Normal LV chamber size and function. * Mild concentric left ventricular hypertrophy. Right Ventricle * Normal right ventricular structure and function. Aorta * Normally sized aortic root. Pericardium * The pericardium appears normal. - Attending Attestation I examined this patient and my medical decision-making was reviewed with the Resident Physician on 10/03/17. I agree with the documented findings, disposition and treatment plan as described except to the extent set forth below. Ms Garcia is currently admitted for acute exac CHF. She remains hypertensive. She remains moderate to high risk due to potential for worsening clinical status. Ms Garcia is breathing OK today. Her BP remains markedly elevated. No fever or chills. Some cough still. No GI issues. Exam Alert Comfortable sitting on edge of bed. BP 160/65 manual by me with large cuff Mucus membranes dry Heart not tachy Lungs clear at this time. Abd soft Edema improving I/P 1. Acute exac CHF - continues to slowly improve 2. HTN - markedly uncontrolled. Meds reviewed and adjusted Further diagnoses and plan as above. <Enrique Pacheco - Last Filed: 10/03/17 13:55> (2) HTN (hypertension) Qualifiers: Hypertension type: essential hypertension Qualified Code(s): I10 - Essential (primary) hypertension (5) CAD (coronary artery disease) Qualifiers: Coronary Disease-Associated Artery/Lesion type: [place] artery [place] vs. transplanted heart: [place] heart Associated angina: without angina Qualified Code(s): I25.10 - Atherosclerotic heart disease of [place] coronary artery without angina pectoris (6) Diabetes mellitus Qualifiers: Diabetes mellitus type: type 2 Diabetes mellitus superintendent terminal insulin use: with superintendent terminal use Diabetes mellitus complication status: with kidney complications Diabetes mellitus complication detail: with chronic kidney disease Chronic kidney disease stage: stage 4 (severe) Qualified Code(s): E11.22 - Type 2 diabetes mellitus with diabetic chronic kidney disease; N18.4 - Chronic kidney disease, stage 4 (severe); Z79.4 - snf (current) use of insulin <Jesus Seay - Last Filed: 10/03/17 15:41> (1) Acute exacerbation of CHF (congestive heart failure) Qualifiers: Heart failure type: diastolic Qualified Code(s): I50.33 - Acute on chronic diastolic (congestive) heart failure (3) HTN (hypertension) Qualifiers: Hypertension type: essential hypertension Qualified Code(s): I10 - Essential (primary) hypertension (4) CAD (coronary artery disease) Qualifiers: Coronary Disease-Associated Artery/Lesion type: [place] artery [place] vs. transplanted heart: [place] heart Associated angina: without angina Qualified Code(s): I25.10 - Atherosclerotic heart disease of [place] coronary artery without angina pectoris (6) Diabetes mellitus Qualifiers: Diabetes mellitus type: type 2 Diabetes mellitus halfway insulin use: with superintendent terminal use Diabetes mellitus complication status: with kidney complications Diabetes mellitus complication detail: with chronic kidney disease Chronic kidney disease stage: stage 4 (severe) Qualified Code(s): E11.22 - Type 2 diabetes mellitus with diabetic chronic kidney disease; N18.4 - Chronic kidney disease, stage 4 (severe); Z79.4 - snf (current) use of insulin
[2017-10-03] MEDS: Budesonide/Formoterol 160/4.5 1 PUFF INH IH SCH ×2 (11:20→23:24)
[2017-10-03] MEDS: Insulin LISPRO 300 UNITS/3 ML VIAL SQ SCH ×4 (12:25→20:21)
--- NOTE | 2017-10-03 15:52 | Nephrology Progress Note ---
Date of Encounter: 10/03/17 Time of Encounter: 13:00 - Assessment and Plan (1) Acute kidney injury superimposed on CKD Current Visit: Yes Status: Acute o new labs today but UOP very good at 2550cc in the past 24hrs Continue to avoid nephrotoxins if possible (2) CHF exacerbation Current Visit: Yes Status: Acute Strict I/Os Continue current lasix regimen Continue fluid restriction Qualifiers: Qualified Code(s): I50.9 - Heart failure, unspecified (3) CKD (chronic kidney disease) stage 3, GFR 30-59 ml/min Current Visit: Yes Status: Chronic Baseline GFR around 30s Urine shows nephrotic range proteinuria whcih might be contributing to volume overload but usually very responsible to diuretics. 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 Will need ACEi/ARB when stabilized Vitamin D very low, will start ergocalciferol. PTH slightly elevated, will monitor for now (4) HTN (hypertension) Current Visit: Yes Status: Acute Continue current regimen with metoprolol, procardia, hydralazine BP better with large BP cuff per Dr Seay, likely more accurate Qualifiers: Hypertension type: essential hypertension Qualified Code(s): I10 - Essential (primary) hypertension Subjective Interval history: Pt seen and examined sitting up in chair feels good. Breathing better per pt. Objective - Vital Signs Vital signs: Vital Signs Temp Pulse Resp BP Pulse Ox 10/03/17 15:40 16 92 10/03/17 11:40 98.7 F 87 19 196/71 92 10/03/17 11:20 16 93 10/03/17 10:09 180/92 10/03/17 07:10 98 F 88 17 213/86 93 10/03/17 04:42 16 185/66 98 10/03/17 04:18 99.1 F 79 16 185/66 99 10/02/17 23:35 98.3 F 72 16 171/75 98 10/02/17 22:37 18 176/95 94 10/02/17 20:00 96 10/02/17 18:58 97.9 F 73 15 176/95 96 10/02/17 16:25 97.6 F 70 18 153/67 96 10/02/17 15:54 18 95 Intake and Output 10/02/17 10/03/17 10/03/17 23:59 07:59 15:59 Intake Total 289 / 289 0 / 0 780 / 780 Output Total 1500 / 1500 700 / 700 750 / 750 Balance -1211 / -1211 -700 / -700 30 / 30 Intake: IV Fluids 169 / 169 Nitroglycerin Premix 25 MG/250 169 / 169 ML 25 mg In 250 ml @ 5 MCG/MIN 3 mls/hr IVC .Q24H [facility] Rx#: [id number] Oral 120 / 120 0 / 0 780 / 780 Output: Urine 1500 / 1500 700 / 700 750 / 750 Other: Meal Dinner Lunch Percent of Meal Consumed 100% 60% Weight 130.7 kg Blood Glucose* 194 121 196 - General Appearance General appearance: Present: well-developed, well-nourished EENT: Present: ATNC, mucous membranes moist Neck: Present: no JVD, supple Additional Comments: good areation ant bilat Cardiology: Present: edema (R>L, chronic LE, improving), normal S1, normal S2 Gastrointestinal: Present: no tenderness, no guarding, obese Integumentary: Present: warm and dry Neurologic: Present: no focal deficit Musculoskeletal: Present: no deformities Psychiatric: Present: mood/affect appropriate, cooperative - Lab 10/02/17 07:34 10/02/17 07:34 Most recent lab results ABG pH 7.37 pH Units (7.32-7.45) 10/01/17 05:34 ABG pCO2 51 mmHg (35-45) H 10/01/17 05:34 ABG pO2 64 mmHg (85-104) L 10/01/17 05:34 ABG HCO3 29 mEq/L (21-27) H 10/01/17 05:34 ABG O2 Saturation 91 % (95-98) L 10/01/17 05:34 Calcium 9.4 mg/dL (8.6-10.3) 10/02/17 07:34 Urine Creatinine 42 mg/dL 10/02/17 16:30 Urine Total Protein 395 mg/dL (1-14) H 10/02/17 16:30 Consult Discharge Plan - Plan Instructions: Heart Failure (DC), Acute Respiratory Distress Syndrome (DC), Diabetes Mellitus Type 2 in Adults (DC), Using Oxygen at Home (DC), Chronic Obstructive Pulmonary Disease (DC), Chronic Hypertension (DC), Hypoxia (GEN), Anxiety (DC) Referrals: Valenzuela,Jay L, DO [Primary Care Provider] -
[2017-10-03] MEDS: Levofloxacin 500 MG/100 ML 500 MG/100 ML BAG IVPB SCH (17:22)
[2017-10-03] MEDS: traZODone 50 MG TABLET PO SCH (20:20)
[2017-10-03] MEDS: Famotidine 20 MG TABLET PO SCH (20:20)
[2017-10-04] MEDS: *HR* Heparin 5,000 UNIT/ML VIAL SQ SCH ×2 (01:06→08:31)
[2017-10-04] MEDS: Ipratropium/Albuterol Neb 3 ML IH SCH ×3 (04:35→16:02)
[2017-10-04] MEDS: hydrALAZINE 25 MG TABLET PO SCH ×2 (06:32→16:41)
[2017-10-04 06:36] LABS: Calcium 9.1 mg/dL (8.6-10.3); Potassium 3.7 mEq/L (3.5-5.1)
--- NOTE | 2017-10-04 07:34 | Internal Med Progress Note ---
<Enrique Pacheco - Last Filed: 10/04/17 13:30> Hospitalist Progress Note - Encounter Date of Encounter: 10/04/17 Time of Encounter: 07:30 - Subjective Interval History: Patient was seen and examined at bedside. She states that she is feeling better. Shortness of breath is improving. States that she slept well last night. Trace pitting edema is present in the lower extremities bilaterally. No complaints at this time. - Exam Vitals: Temp Pulse Resp BP Pulse Ox 97.9 F 79 17 172/88 97 10/04/17 07:18 10/04/17 07:18 10/04/17 07:18 10/04/17 05:05 10/04/17 07:18 Exam: General: Conversant, no acute distress HEENT: Mucus membranes dry. Normocephalic, atraumatic, EOMI Cardio: RRR, + S1, S2. No murmurs rubs or gallops. Pulmonary: Diminished breath sounds bilaterally, no wheezes rales or rhonchi. Abdomen: Soft, non tender, non distended, normal bowel sounds Extremities: Trace pitting edema bilaterally - Assessment and Plan (1) HTN (hypertension) Status: Acute Assessment and Plan: - Blood pressure is still elevated at 210/84 Plan: - Hydralazine 100 mg every 8 hours - Hydralazine 10 mg when necessary for SBP greater than 160 - Nifedipine 90 mg - Metoprolol 50 mg twice a day (2) CAD (coronary artery disease) Status: Chronic Assessment and Plan: Chronic, stable - History of CAD, 3 stents previously - Continue home meds plavix, rosuvastatin, ranolazine, fenofibrate (3) HUSAM (obstructive sleep apnea) Status: Chronic Assessment and Plan: - Chronic, stable, continue BiPAP (4) Diabetes mellitus Status: Chronic Assessment and Plan: Continue levemir 10 units, high dose SSI (5) COPD exacerbation Status: Acute Assessment and Plan: History of COPD, current smoker - Continue supplemental O2, BiPAP, duonebs, mucinex, symbicort, ventolin - Levaquin day 3 (6) Morbid obesity Status: Chronic Assessment and Plan: Chronic issue (7) CKD (chronic kidney disease) stage 3, GFR 30-59 ml/min Status: Chronic Assessment and Plan: - Per nephrology note: Vitamin D leels low; ergocalciferol has been started - Nephrotic range proteinuria; check SOPHIA, complement levels, ANCA. (8) Acute exacerbation of CHF (congestive heart failure) Status: Acute Assessment and Plan: - Presented with shortness of breath likely secondary to CHF exacerbation - Patients clinical status is improving; denies shortness of breath today - Compliant with BiPAP at night, currently on O2 via nasal cannula - Total I/O balance is -5710 - Patient has had good urine output Plan: - Per the recommendations of nephrology, continue Lasix 40 mg IV daily - Fluid restriction 1,800 mL - Continue monitoring volume status - Time Spent with Patient Total time spent is greater than 50% in coordination of care (as documented) at patient's floor/unit and/or counseling patient: less than 15 minutes Internal Medicine: Result - Labs CBC & Chem 7: 10/02/17 07:34 10/04/17 05:49 Labs: BMP 10/04/17 05:49 Sodium 137 Potassium 3.7 Chloride 102 Carbon Dioxide 28 BUN 46 H Creatinine 2.61 H Glucose 111 H Calcium 9.1 - ABG Interpretation ABG results: ABG ABG pH 7.37 pH Units (7.32-7.45) 10/01/17 05:34 ABG pCO2 51 mmHg (35-45) H 10/01/17 05:34 ABG pO2 64 mmHg (85-104) L 10/01/17 05:34 ABG O2 Saturation 91 % (95-98) L 10/01/17 05:34 PT/INR, D-dimer D-Dimer 1387 ng/mLFEU (0-500) H 09/27/17 18:13 - Impressions Impressions Echocardiogram Limited Views 10/02/17 14:56 Impressions: LVEF 60-65%. Normal LV chamber size and function. Mild concentric left ventricular hypertrophy. Limited study for LV function. Valves not assessed. Left Ventricular Wall Motion: Rest Echo Findings All wall segments showed normal motion. Findings: Study Quality * Technically adequate exam. ECG Findings * Normal sinus rhythm. Left Ventricle * LVEF 60-65%. * Normal LV chamber size and function. * Mild concentric left ventricular hypertrophy. Right Ventricle * Normal right ventricular structure and function. Aorta * Normally sized aortic root. Pericardium * The pericardium appears normal. Consult Discharge Plan - Plan Instructions: Nifedipine (By mouth), Ergocalciferol (By mouth), Hydralazine ( By mouth), Heart Failure (DC), Acute Respiratory Distress Syndrome (DC), Diabetes Mellitus Type 2 in Adults (DC), Using Oxygen at Home (DC), Chronic Obstructive Pulmonary Disease (DC), Chronic Hypertension (DC), Hypoxia (GEN), Anxiety (DC) Additional Instructions: Monitor and record b/p daily Referrals: Jay Valenzuela DO [Primary Care Provider] - (please call for follow up appointment within one week of discharge) Sagar Cote DO [Non-Partnered Physician] - (call for appointment within 1-2 weeks ) Prescriptions: Ergocalciferol (VITAMIN D2) [Drisdol (50,000 Unit)] 50,000 unit PO QWEEK #4 capsule Hydralazine HCl 100 mg PO TID #90 tablet NIFEdipine XL (24 HR) [Procardia XL] 90 mg PO DAILY 30 Days #45 tab.[email or web address] <Jesus Seay - Last Filed: 10/04/17 18:15> Hospitalist Progress Note - Encounter Date of Encounter: 10/04/17 - Exam Vitals: Temp Pulse Resp BP Pulse Ox 97.9 F 79 16 168/76 97 10/04/17 07:18 10/04/17 07:18 10/04/17 11:18 10/04/17 12:25 10/04/17 11:18 - Assessment and Plan (1) CAD (coronary artery disease) Status: Chronic (2) HUSAM (obstructive sleep apnea) Status: Chronic (3) CKD (chronic kidney disease) stage 3, GFR 30-59 ml/min Status: Chronic (4) Diabetes mellitus Status: Chronic (5) COPD exacerbation Status: Acute (6) HTN (hypertension) Status: Acute (7) Morbid obesity Status: Chronic (8) Acute exacerbation of CHF (congestive heart failure) Status: Acute - Time Spent with Patient Total time spent is greater than 50% in coordination of care (as documented) at patient's floor/unit and/or counseling patient: Internal Medicine: Result - Labs CBC & Chem 7: 10/02/17 07:34 10/04/17 05:49 Labs: BMP 10/04/17 05:49 Sodium 137 Potassium 3.7 Chloride 102 Carbon Dioxide 28 BUN 46 H Creatinine 2.61 H Glucose 111 H Calcium 9.1 - ABG Interpretation ABG results: ABG ABG pH 7.37 pH Units (7.32-7.45) 10/01/17 05:34 ABG pCO2 51 mmHg (35-45) H 10/01/17 05:34 ABG pO2 64 mmHg (85-104) L 10/01/17 05:34 ABG O2 Saturation 91 % (95-98) L 10/01/17 05:34 PT/INR, D-dimer D-Dimer 1387 ng/mLFEU (0-500) H 09/27/17 18:13 - Attending Attestation Please see discharge summary of this date. <Enrique Pacheco - Last Filed: 10/04/17 13:30> (1) HTN (hypertension) Qualifiers: Hypertension type: essential hypertension Qualified Code(s): I10 - Essential (primary) hypertension (2) CAD (coronary artery disease) Qualifiers: Coronary Disease-Associated Artery/Lesion type: [place] artery [place] vs. transplanted heart: [place] heart Associated angina: without angina Qualified Code(s): I25.10 - Atherosclerotic heart disease of [place] coronary artery without angina pectoris (4) Diabetes mellitus Qualifiers: Diabetes mellitus type: type 2 Diabetes mellitus custodial insulin use: with assistant terminal manager use Diabetes mellitus complication status: with kidney complications Diabetes mellitus complication detail: with chronic kidney disease Chronic kidney disease stage: stage 4 (severe) Qualified Code(s): E11.22 - Type 2 diabetes mellitus with diabetic chronic kidney disease; N18.4 - Chronic kidney disease, stage 4 (severe); Z79.4 - terminal press operator (current) use of insulin (8) Acute exacerbation of CHF (congestive heart failure) Qualifiers: Heart failure type: diastolic Qualified Code(s): I50.33 - Acute on chronic diastolic (congestive) heart failure <Jesus Seay - Last Filed: 10/04/17 18:15> (1) CAD (coronary artery disease) Qualifiers: Coronary Disease-Associated Artery/Lesion type: [place] artery [place] vs. transplanted heart: [place] heart Associated angina: without angina Qualified Code(s): I25.10 - Atherosclerotic heart disease of [place] coronary artery without angina pectoris (4) Diabetes mellitus Qualifiers: Diabetes mellitus type: type 2 Diabetes mellitus custodial insulin use: with assistant terminal manager use Diabetes mellitus complication status: with kidney complications Diabetes mellitus complication detail: with chronic kidney disease Chronic kidney disease stage: stage 4 (severe) Qualified Code(s): E11.22 - Type 2 diabetes mellitus with diabetic chronic kidney disease; N18.4 - Chronic kidney disease, stage 4 (severe); Z79.4 - FPC (current) use of insulin (6) HTN (hypertension) Qualifiers: Hypertension type: essential hypertension Qualified Code(s): I10 - Essential (primary) hypertension (8) Acute exacerbation of CHF (congestive heart failure) Qualifiers: Heart failure type: diastolic Qualified Code(s): I50.33 - Acute on chronic diastolic (congestive) heart failure
[2017-10-04] MEDS: ALPRAZolam 1 MG TABLET PO SCH (08:30)
[2017-10-04] MEDS: NIFEdipine XL (24 HR) 30 MG TAB.ER.24 PO SCH (08:30)
[2017-10-04] MEDS: Ranolazine 500 MG TAB.ER.12H PO SCH (08:30)
[2017-10-04] MEDS: Furosemide 40 MG/4 ML VIAL IVP SCH (08:31)
[2017-10-04] MEDS: Fenofibrate 54 MG TABLET PO SCH (08:31)
[2017-10-04] MEDS: Insulin LISPRO 300 UNITS/3 ML VIAL SQ SCH ×2 (08:31→12:25)
[2017-10-04] MEDS: Sennosides/Docusate Sodium TABLET PO SCH (08:31)
[2017-10-04] MEDS: risperiDONE 1 MG TABLET PO SCH (08:31)
[2017-10-04] MEDS: Insulin DETEMIR 100 UNIT/ML X5UNITS SQ SCH (08:32)
[2017-10-04] MEDS: Budesonide/Formoterol 160/4.5 1 PUFF INH IH SCH (11:18)
[2017-10-04 12:25] VITALS: BP 168/76
--- NOTE | 2017-10-04 14:05 | Discharge Summary ---
<Enrique Pacheco - Last Filed: 10/04/17 14:37> - NOTES TO OUTPATIENT PROVIDER Notes to Outpatient Provider: Follow-up with order expediter in the outpatient setting for proteinuria. Orders not resulted at time of discharge: Pending orders 10/04/17 05:49 SOPHIA IgG YUMIKO rflx IFA AM 0400 Complement Component 3 Routine Complement Component 4 Routine MPO/PR3 (ANCA) Antibodies Routine Date of Encounter: 10/04/17 Time of Encounter: 13:20 - Discharge Diagnosis (1) HTN (hypertension) Priority: Secondary Status: Acute Qualifiers: Hypertension type: essential hypertension Qualified Code(s): I10 - Essential (primary) hypertension (2) CAD (coronary artery disease) Priority: Secondary Status: Chronic Qualifiers: Coronary Disease-Associated Artery/Lesion type: [place] artery [place] vs. transplanted heart: [place] heart Associated angina: without angina Qualified Code(s): I25.10 - Atherosclerotic heart disease of [place] coronary artery without angina pectoris (3) HUSAM (obstructive sleep apnea) Priority: Secondary Status: Chronic (4) Diabetes mellitus Priority: Secondary Status: Chronic Qualifiers: Diabetes mellitus type: type 2 Diabetes mellitus usp insulin use: with intermediate project manager use Diabetes mellitus complication status: with kidney complications Diabetes mellitus complication detail: with chronic kidney disease Chronic kidney disease stage: stage 4 (severe) Qualified Code(s): E11.22 - Type 2 diabetes mellitus with diabetic chronic kidney disease; N18.4 - Chronic kidney disease, stage 4 (severe); Z79.4 - retirement (current) use of insulin (5) COPD exacerbation Priority: Secondary Status: Acute (6) Morbid obesity Priority: Secondary Status: Chronic (7) CKD (chronic kidney disease) stage 3, GFR 30-59 ml/min Priority: Secondary Status: Chronic (8) Acute exacerbation of CHF (congestive heart failure) Priority: Primary Status: Acute Qualifiers: Heart failure type: diastolic Qualified Code(s): I50.33 - Acute on chronic diastolic (congestive) heart failure Hospital course: Ms. Garcia is a 67-year-old female who presented to [facility] ED on 09/27/17 with a chief complaint of shortness of breath and heaviness in her chest for the last 2 -3 weeks. Patient also reported having an increase in sputum production as well as bilateral lower extremity edema. She admitted to being largely noncompliant with her oxygen at home, but she reports that she had been trying to use it in the days leading up to her admission to see if that would help. She reported little improvement with home oxygen. Patient also supposed to be on BiPAP every night; admits to occasional noncompliance. In the emergency department, patient was found to have an elevated BNP at 1770, and elevated d- dimer at 1387. Troponins were within normal limits. Chest x-ray demonstrated pulmonary vascular congestion with small pleural effusion. She was admitted for a CHF exacerbation and shortness of breath. Patient was given Lasix IV as well as IPAP each night. Her respiratory status and her lower extremity edema gradually improved. Nephrology was consulted on 10/02 due to TAMEKA superimposed on CKD. Patient had a known history of stage III chronic kidney disease. Patient was found to have an elevated protein in her urine, within nephrotic range. Per nephrologys recommendations, patient should follow-up in the outpatient setting with order expediter. Vitamin D was very low, patient was started on ergocalciferol. Nephrology also recommended starting the patient on either an Yaya or an Arb discharge. Patients total intake and output balance on date of discharge is -5710. She has had good urine output. Shortness of breath and lower extremity edema have markedly improved. She has no complaints. - Time Spent with Patient Total time spent providing and/or coordinating discharge services: Greater than 30 minutes (42 minutes) - Discharge Medications Prescriptions: Ergocalciferol (VITAMIN D2) [Drisdol (50,000 Unit)] 50,000 unit PO QWEEK #4 capsule Hydralazine HCl 100 mg PO TID #90 tablet NIFEdipine XL (24 HR) [Procardia XL] 90 mg PO DAILY 30 Days #45 tab.er.24 Home Medications: ALPRAZolam [Xanax 1 MG Tablet] 1 mg PO BID 04/15/17 [History] Clopidogrel [Plavix] 75 mg PO DAILY 04/15/17 [History] DULoxetine [Cymbalta] 30 mg PO BID 04/15/17 [History] Famotidine [Heartburn Prevention] 20 mg PO BID 04/15/17 [History] Fenofibrate Nanocrystallized [Triglide] 160 mg PO DAILY 04/15/17 [History] Trazodone HCl 100 mg PO HS 04/15/17 [History] risperiDONE [Risperidone] 1 mg PO DAILY 04/15/17 [History] Insulin Regular U-500 [HumuLIN R U-500] 6 - 8 unit SQ DAILY 07/23/17 [History] Metoprolol Tartrate [Lopressor] 50 mg PO BID 07/23/17 [History] Ranolazine [Ranexa] 500 mg PO BID 07/23/17 [History] Rosuvastatin [Crestor] 40 mg PO HS 07/23/17 [History] Albuterol Sulfate [Ventolin Hfa] 2 puff IH Q6H PRN 09/28/17 [History] Budesonide/Formoterol 160/4.5 [Symbicort 160/4.5] 2 puff IH BIDR 09/28/17 [ History] Furosemide [Lasix] 40 mg PO DAILY 09/28/17 [History] HYDROcodone/Acet 5/325 mg [Morgan 5-325 mg] 1 tab PO BID PRN 09/28/17 [History] Potassium Chloride [K-Tab ER] 20 meq PO BID 09/28/17 [History] Tiotropium [Spiriva] 1 puff IH DAILY 09/28/17 [History] Ergocalciferol (VITAMIN D2) [Drisdol (50,000 Unit)] 50,000 unit PO QWEEK #4 capsule 10/04/17 [Rx] Hydralazine HCl 100 mg PO TID #90 tablet 10/04/17 [Rx] NIFEdipine XL (24 HR) [Procardia XL] 90 mg PO DAILY 30 Days #45 tab.er.24 [Rx] Allergies/Adverse Reactions: 3 Allergy/AdvReac Type Severity Reaction Status Date / Time morphine Allergy Hallucinati Verified 09/27/17 17:49 ng Sulfa (Sulfonamide Allergy Rash Verified 09/27/17 17:49 Antibiotics) Date of admission: 09/28/17 17:33 Primary care physician: Jay Valenzuela Consults: 10/01/17 15:40 Consult to Nephrology [CONS] Routine Consulting Provider: Kidney Amina/HINA/MONY/JENS Reason for Consult: Management of lasix for CHF in setting of chronic kidney disease with rising creatinine Call Completed: Yes Discharging clinician: Enrique Pacheco Anticipated date of discharge: 10/04/17 - Constitutional Vitals: Temp Pulse Resp BP Pulse Ox 97.9 F 79 16 168/76 97 10/04/17 07:18 10/04/17 07:18 10/04/17 11:18 10/04/17 12:25 10/04/17 11:18 - Other Additional findings: General: Conversant, no acute distress HEENT: Mucus membranes dry. Normocephalic, atraumatic, EOMI Cardio: RRR, + S1, S2. No murmurs rubs or gallops. Pulmonary: Diminished breath sounds bilaterally, no wheezes rales or rhonchi. Abdomen: Soft, non tender, non distended, normal bowel sounds Extremities: Trace pitting edema bilaterally - Patient Status Disposition: Home, Self-Care Condition: Fair Overall status at discharge: patient is progressing back to baseline - Discharge Instructions Instructions: Nifedipine (By mouth), Ergocalciferol (By mouth), Hydralazine ( By mouth), Heart Failure (DC), Acute Respiratory Distress Syndrome (DC), Diabetes Mellitus Type 2 in Adults (DC), Using Oxygen at Home (DC), Chronic Obstructive Pulmonary Disease (DC), Chronic Hypertension (DC), Hypoxia (GEN), Anxiety (DC) Follow Up With: Jay Valenzuela DO [Primary Care Provider] - (please call for follow up appointment within one week of discharge) Sagar Cote DO [Non-Partnered Physician] - (call for appointment within 1-2 weeks ) Additional Instructions: Monitor and record b/p daily - Diet and Activity Activity: increase activity as tolerated Diet: advance to your usual diet <Jesus Seay - Last Filed: 10/04/17 18:21> Orders not resulted at time of discharge: Pending orders 10/04/17 05:49 SOPHIA IgG YUMIKO rflx IFA AM 0400 Complement Component 3 Routine Complement Component 4 Routine MPO/PR3 (ANCA) Antibodies Routine Date of Encounter: 10/04/17 - Discharge Diagnosis (1) Acute exacerbation of CHF (congestive heart failure) Status: Acute Qualifiers: Heart failure type: diastolic Qualified Code(s): I50.33 - Acute on chronic diastolic (congestive) heart failure (2) CAD (coronary artery disease) Status: Chronic Qualifiers: Coronary Disease-Associated Artery/Lesion type: [place] artery [place] vs. transplanted heart: [place] heart Associated angina: without angina Qualified Code(s): I25.10 - Atherosclerotic heart disease of [place] coronary artery without angina pectoris (3) HUSAM (obstructive sleep apnea) Status: Chronic (4) Diabetes mellitus Status: Chronic Qualifiers: Diabetes mellitus type: type 2 Diabetes mellitus intermediate project manager insulin use: with usp use Diabetes mellitus complication status: with kidney complications Diabetes mellitus complication detail: with chronic kidney disease Chronic kidney disease stage: stage 4 (severe) Qualified Code(s): E11.22 - Type 2 diabetes mellitus with diabetic chronic kidney disease; N18.4 - Chronic kidney disease, stage 4 (severe); Z79.4 - supervisor intermediates (current) use of insulin (5) COPD exacerbation Status: Acute (6) HTN (hypertension) Status: Acute Qualifiers: Hypertension type: essential hypertension Qualified Code(s): I10 - Essential (primary) hypertension (7) Morbid obesity Status: Chronic Hospital course: Ms. Garcia is a 67 year old female - Time Spent with Patient Total time spent providing and/or coordinating discharge services: Date of admission: 09/28/17 17:33 Primary care physician: Jay Valenzuela Consults: 10/01/17 15:40 Consult to Nephrology [CONS] Routine Consulting Provider: Kidney Amina/HINA/MONY/JENS Reason for Consult: Management of lasix for CHF in setting of chronic kidney disease with rising creatinine Call Completed: Yes - Constitutional Vitals: Temp Pulse Resp BP Pulse Ox 97.9 F 79 16 168/76 97 10/04/17 07:18 10/04/17 07:18 10/04/17 11:18 10/04/17 12:25 10/04/17 11:18 - Attending Attestation I examined this patient and my medical decision-making was reviewed with the Resident Physician on 10/04/17. I agree with the documented findings, disposition and treatment plan as described except to the extent set forth below. Ms Garcia has been admitted for acute exac CHF, CKD and HTN. She has diuresed and is at baseline breathing. Her renal function has been fluctuating and she is to follow up with nephrology. Her BP was fluctuating as well and was affected by size of BP cuff. Her meds were adjusted for elevation. Today she feels at baseline. She is afebrile and ready for discharge home. Exam alert Comfortable Mucus membranes dry Heart reg No wheeze abd soft Plan D/C home today.
[2017-10-05] MEDS ORDERED: levoFLOXacin 500 MG TABLET PO SCH (09:00)
[2017-10-06 14:22] LABS: Complement Component 3 146 mg/dL (88-201)
[2017-10-06 14:23] LABS: Complement Component 4 36 mg/dL (10-40)
[2017-10-08 08:41] LABS: ANA IgG by ELISA NONE DETECTED (None Detected); Myeloperoxidase Ab 0 AU/mL (0-19); Serine Protease-3 Antibody 0 AU/mL (0-19)
== END 2017-10-04 17:03 | disposition home or self-care (01) | DRG 291 ==
LOC: EMEROOARM 17:42 → 2NENU 17:42 → SUATTDRO 20:25 → 2NENU 20:36
PROVIDERS: ADMIT Family Medicine; ATTEND Internal Medicine

== ENCOUNTER 2017-11-06 23:44 | Inpatient (IN) ==
[2017-11-06] MEDS ORDERED: 0.9 % Sodium Chloride 1,000 ML ONE (23:54)
[2017-11-07] MEDS ORDERED: 0.9 % Sodium Chloride 1,000 ML IVC ONE (00:09)
[2017-11-07] MEDS ORDERED: *HR* Rocuronium Bromide 50 MG/5 ML VIAL IVP ONE (00:10)
[2017-11-07] MEDS ORDERED: *HR* Etomidate 20 MG/10 ML AMPUL IVP ONE ×2 (00:11→13:29)
[2017-11-07] MEDS ORDERED: *HR* Midazolam HCl 5 MG/5 ML VIAL IVP ONE ×2 (00:12→13:29)
[2017-11-07] MEDS ORDERED: *HR* FentaNYL (PF) 100 MCG/2 ML VIAL IVP ONE (00:14)
[2017-11-07] MEDS ORDERED: *HR* Propofol 200 MG/20 ML VIAL IVP ONE (00:14)
[2017-11-07 00:27] LABS: ABG Base Excess -1 mEq/L (-2 to 3); ABG HCO3 30 mEq/L (21-27); ABG Oxygen Saturation 98 % (95-98); ABG PCO2 83 mmHg (35-45); ABG PH 7.16 pH Units (7.32-7.45); ABG PO2 131 mmHg (85-104); ABG TCO2 32 mEq/L (20-26); Blood Gas Modality PRVC; Blood Gas PEEP 5 cm H2O; Blood Gas Respiration Rate 20; Blood Gas VT 360 cc
[2017-11-07] MEDS: FentaNYL (PF) 1,000 MCG in 0.9 % Sodium Chloride 80 ML IVC SCH (00:41)
[2017-11-07 00:42] LABS: Bilirubin,Urine Negative (Negative); Blood,Urine Small (Negative); Clarity,Urine Cloudy (Clear); Color,Urine Yellow (Yellow); Glucose,Urine (UA) 500 mg/dL (Normal); Ketones,Urine Negative (Negative); Leukocyte Esterase,Urine Trace (Negative); Nitrite,Urine Negative (Negative); PH,Urine 6.5 pH Units (5.0-8.0); Protein,Urine >=300 mg/dL (Neg-Trace); Specific Gravity,Urine 1.008 (1.010-1.025); Squamous Epithelial Cell,Urine Many per lpf (None-Few); Urobilinogen,Urine Normal (Normal); WBC,Urine 15-30 per hpf (0-3)
[2017-11-07] MEDS ORDERED: methylPREDNISolone 125 MG/2 ML VIAL IVP ONE (00:43)
[2017-11-07 00:45] LABS: Bacteria,Urine Many per hpf (None-Few)
[2017-11-07 01:01] LABS: Basophils # 0.1 K/mcL (0.0-0.2); Basophils % 0.7 %; Eosinophils # 0.2 K/mcL (0.0-0.6); Eosinophils % 1.4 %; Hematocrit 35.5 % (35.3-44.9); Hemoglobin 11.2 g/dL (11.5-15.4); Immature Granulocytes % 1.8 % (0-4); Lymphocytes # 0.9 K/mcL (0.6-4.6); Lymphocytes % 6.2 %; Mean Corpuscular HGB Conc 31.5 g/dL (31.6-35.5); Mean Corpuscular Hemoglobin 27.5 pg (28.0-33.3); Mean Platelet Volume 9.2 fL (9.4-12.4); Monocytes # 0.7 K/mcL (0.0-1.3); Monocytes % 4.5 %; Platelet Count 186 K/mcL (140-400); Red Blood Count 4.08 M/mcL (3.82-4.97); Red Cell Distribution Width 15.9 % (11.5-14.5); Segmented Neutrophils % 85.4 %
[2017-11-07] MEDS ORDERED: Levofloxacin 750 MG/150 ML 750 MG/150 ML BAG IVPB ONE (01:01)
[2017-11-07] MEDS ORDERED: Piperacillin/Tazobactam 3.375 GM in Water for inj. (sterile) 20 ML 20 ML IVP ONE (01:01)
--- NOTE | 2017-11-07 01:06 | Emergency Department Note ---
Disposition Clinical Impression: Acute and chronic respiratory failure with hypercapnia Acute exacerbation of CHF (congestive heart failure) Qualifiers: Heart failure type: unspecified Qualified Code(s): I50.9 - Heart failure, unspecified Disposition: Admitted As Inpatient Condition: Critical Referrals: Jay Valenzuela DO [Primary Care Provider] - Time of Disposition: 05:21 General Adult HPI - General Chief complaint: ED Shortness of Breath/Dyspnea Stated complaint: CANDACE Time Seen by Provider: 11/07/17 00:09 Source: EMS Mode of arrival: EMS Limitations: altered mental status Nursing Notes Reviewed: Yes Vital Signs Reviewed: Yes - History of Present Illness HPI Narrative: 67-year-old female presenting to the emergency department via EMS a basic crew she is having shortness of breath. Patient does have history of CHF and COPD is always on 4 L of oxygen at home. They said she had a hard time breathing so they continue the oxygen and took her here and did not give her any medications. Patient when she arrives was unable to answer any questions she had altered mental status and was having a difficult time breathing and protecting her airway. There is no further history was able to be received at this time. Pain Scale: 0 - Related Data Home Medications Medication Instructions Recorded Confirmed ALPRAZolam [Xanax 1 MG Tablet] 1 mg PO BID 04/15/17 09/28/17 Clopidogrel [Plavix] 75 mg PO DAILY 04/15/17 09/28/17 DULoxetine [Cymbalta] 30 mg PO BID 04/15/17 09/28/17 Famotidine [Heartburn Prevention] 20 mg PO BID 04/15/17 09/28/17 Fenofibrate Nanocrystallized 160 mg PO DAILY 04/15/17 09/28/17 [Triglide] Trazodone HCl 100 mg PO HS 04/15/17 09/28/17 risperiDONE [Risperidone] 1 mg PO DAILY 04/15/17 09/28/17 Insulin Regular U-500 [HumuLIN R 6 - 8 unit SQ DAILY 07/23/17 09/28/17 U-500] Metoprolol Tartrate [Lopressor] 50 mg PO BID 07/23/17 09/28/17 Ranolazine [Ranexa] 500 mg PO BID 07/23/17 09/28/17 Rosuvastatin [Crestor] 40 mg PO HS 07/23/17 09/28/17 Albuterol Sulfate [Ventolin Hfa] 2 puff IH Q6H PRN 09/28/17 09/28/17 Budesonide/Formoterol 160/4.5 2 puff IH BIDR 09/28/17 09/28/17 [Symbicort 160/4.5] Furosemide [Lasix] 40 mg PO DAILY 09/28/17 09/28/17 HYDROcodone/Acet 5/325 mg [Brandamore 1 tab PO BID PRN 09/28/17 09/28/17 5-325 mg] Potassium Chloride [K-Tab ER] 20 meq PO BID 09/28/17 09/28/17 Tiotropium [Spiriva] 1 puff IH DAILY 09/28/17 09/28/17 Previous Rx's Medication Instructions Recorded Ergocalciferol (VITAMIN D2) 50,000 unit PO QWEEK #4 capsule 10/04/17 [Drisdol (50,000 Unit)] Hydralazine HCl 100 mg PO TID #90 tablet 10/04/17 NIFEdipine XL (24 HR) [Procardia 90 mg PO DAILY 30 Days #45 10/04/17 XL] tab.er.24 Allergies Allergy/AdvReac Type Severity Reaction Status Date / Time morphine Allergy Hallucinati Verified 09/27/17 17:49 ng Sulfa (Sulfonamide Allergy Rash Verified 09/27/17 17:49 Antibiotics) All systems ED: reviewed and negative except as stated. Review of Systems: As Per HPI Limitations: ROS unobtainable due to patients medical condition Constitutional: Denies: fever, chills, weakness, weight change Eyes: Denies: eye pain, eye discharge, vision change ENT ED: Denies: ear pain, throat pain, dental pain, hearing loss, epistaxis, congestion, dysphagia Past Medical History - Past Medical History Attestation: Yes The following information was validated with the patient. Source: patient Medical history: Reports: arthritis, CHF, COPD, diabetes, GERD, hyperlipidemia, hypertension, RA, renal disease Surgical history: Reports: angioplasty/stent, appendectomy, , cataract Psychiatric history: Reports: anxiety, bipolar - Social History Smoking Status: Current every day smoker Smokeless Tobacco Status: No Alcohol use: Reports: none Drug use: Reports: none Physical Exam - General Limitations: altered mental status General appearance: obtunded, obese - Head Head exam: atraumatic, normocephalic, normal inspection - Eye Eye exam: Present: normal appearance, PERRL, EOMI - ENT ENT exam: normal exam, normal oropharynx, mucous membranes moist - Neck Neck exam: Present: normal inspection, full ROM, trachea midline - Chest Chest inspection: Present: normal inspection, symmetric chest wall rise - Respiratory Respiratory exam: Present: respiratory distress, wheezes, accessory muscle use - Cardiovascular Cardiovascular exam: Present: regular rate, normal rhythm, normal heart sounds - Abdominal Exam Abdominal exam: Present: soft, Non-Tender. Absent: tenderness, distention, guarding, rebound, rigidity - Extremities Exam Extremities exam: Present: normal inspection, full ROM. Absent: tenderness, pedal edema - Expanded Lower Extremity Exam Neurovascular/Tendon exam: Absent: motor deficit, sensory deficit, tendon deficit - Neurological Exam Neurological exam: Present: alert, oriented X3 - Skin Skin exam: Present: warm, dry, intact, normal color Course Course Narrative: Patient she arrived was having a difficult time protecting her airway so and oral airways placed and we decided to intubate the patient with RSI meds including etomidate and rocuronium. Patient also had difficult IV access multiple attempts were tried by nursing staff went up getting an IO in the left tibia successfully. Patient was successfully intubated and placed on the ventilator. We also placed a central line due to difficult venous access. We will do a broad workup this most likely is a COPD exacerbation brought workup includes ABG, CBC, BMP, pro-BNP, blood cultures 2, chest x-ray, EKG, troponin, urinalysis with Hwang catheter placement. We will give patient site Medrol and start broad-spectrum hospital-acquired pneumonia antibiotics. Antibiotics are vancomycin, Zosyn, Levaquin Vital Signs Temperature 97.4 F L 11/06/17 23:53 Pulse Rate 105 11/06/17 23:53 Respiratory Rate 6 11/06/17 23:53 Blood Pressure 219/107 11/06/17 23:53 O2 Sat by Pulse Oximetry 65 11/06/17 23:53 Temperature 97.4 F L 11/06/17 23:53 Pulse Rate 62 11/07/17 04:42 Respiratory Rate 18 11/07/17 04:42 Blood Pressure 156/54 11/07/17 04:42 O2 Sat by Pulse Oximetry 95 11/07/17 04:42 Oxygen Delivery Oxygen Delivery Ventilator Procedures - Central Line Placement Right Femoral Central Line Inserted*: Yes Central Line Catheter Replacement*: No Central Line Insertion: emergent Consent Obtained: verbal consent Procedural Pause: verify patient name and date of , timeout performed per policy, scott and assess the site, assemble equipment and verify supplies, perform hand hygiene Patient Placed on Monitor/Pulse Ox: Yes During the Procedure: clinician is wearing sterile gloves, cap, mask,& gown during insertion, sterile field and sterile technique are maintained, patient's face is covered with drape or mask and wearing a cap, everyone in room is wearing a mask Central Line Prep: Chlorhexidine scrub Prep the Procedure Site: apply chloraprep to the skin using a back and forth scrubbing motion, apply chloraprep for 30 seconds (upper body), 1-2 min ( femoral sites), allow prep to dry, drape the patient with a full body drape Ultrasound Used for Placement: Yes Central Line Lumen Inserted: triple Post Procedure: sutured in place, good blood return, all ports aspirated, flushed, capped, sterile dressing applied, guide wire removed and visualized Patient Tolerated Procedure: well, no complications Complications: none Name of Clinician Inserting Central Line: Dr. Sai Qiu Clinician Assisting/Completing Checklist: Dr. Vikash Spivey Date: 11/07/17 Time: 01:09 - Intubation Time out performed: Yes sedative: Etomidate Mg Given: 20 paralytic: Rocuronium Mg Given: 100 Laryngoscope: Cesia ET Tube Size: 7.5 ET Tube Uncuffed: No Tube Secured Depth (cm): 22 Tube Secured Location: lips Tube Placement Confirmation: visualized tube passing through cords, equal breath sounds bilaterally, no breath sounds over epigastrium Patient Tolerated Procedure: well, no complications Intubation Complications: difficult intubation - IO Left Tibia Consent Obtained: verbal consent Time Out Performed: Yes IO Instrument Used to Penetrate the Cortex: battery powered IO drill Patient Tolerated Procedure: well, no complications Complications: none Medical Decision Making - MDM Narrative Medical decision making narrative: 67-year-old female presented to the emergency department in respiratory distress. She was had respiratory failure with hypoxia and hypercapnia. She was altered. At that time we decided to intubate the patient we intubated with etomidate and rocuronium. This did well with her. I did give her 125 Solu- Medrol after intubation. Intubation was successfully done. Place the patient on ventilator using hard settings. We increased the respiratory rate as patient was hypercapnic 0 the CO2. Patient did have leukocytosis most likely is secondary to pneumonia. So we started patient for hospital acquired pneumonia. With broad-spectrum antibiotics including vancomycin, Levaquin, Zosyn. Patient tolerated this well. She did have an IO placed that she had difficult vascular access in the left tibia. We have getting a right upper extremity but due to her difficult vascular access I did place a triple lumen in the right from oral vein. Patient tolerated this procedure well. Patient's blood pressure was stable did not needed any vasopressors. We then sedated the patient with propofol and fentanyl. Patient tolerated that well she had a decent blood pressure. Patient also had acute kidney injury. Did give patient IV fluid bolus. She also had a Hwang placed it was a very dirty urine but would did not recommend culture she is already being treated with antibiotics so we will not further culture the urine at this time. Due to patient being intubated and her respiratory failure patient needed to be admitted to the intensive care unit. I spoke with the on-call hospitalist Dr. Ma who agreed to admit the patient to their service. Patient was admitted in critical condition on the ventilator. The [employer] team was notified. We did get a head CT would do to the altered mental status this came back with no acute findings. - Lab Data Result diagrams: 11/07/17 00:46 11/07/17 00:46 Lab Results 11/07/17 11/07/17 11/07/17 Range/Units 00:10 00:23 00:23 WBC (4.3-11.1) K/mcL RBC (3.82-4.97) M/mcL Hgb (11.5-15.4) g/dL Hct (35.3-44.9) % MCV (83.0-100.0) fL MCH (28.0-33.3) pg MCHC (31.6-35.5) g/dL RDW (11.5-14.5) % Plt Count (140-400) K/mcL MPV (9.4-12.4) fL Immature Gran % (0-4) % Seg Neutrophils % % Lymphocytes % % Monocytes % % Eosinophils % % Basophils % % Neutrophils # (1.6-8.9) K/mcL Lymphocytes # (0.6-4.6) K/mcL Monocytes # (0.0-1.3) K/mcL Eosinophils # (0.0-0.6) K/mcL Basophils # (0.0-0.2) K/mcL PT 13.3 H (9.4-12.1) Seconds INR 1.2 Sample Site R Radial ABG pH 7.16 L* (7.32-7.45) pH Units ABG pCO2 83 H* (35-45) mmHg ABG pO2 131 H (85-104) mmHg ABG HCO3 30 H (21-27) mEq/L ABG Total CO2 32 H (20-26) mEq/L ABG O2 Saturation 98 (95-98) % ABG Base Excess -1 (-2 to 3) mEq/L Toby Test N/A Respiration Rate 20 O2 Delivery Device Adult Vent Blood Gas Modality PRVC Inspired O2 100.0 (1-15=lpm [id number]=%) Tidal Volume 360 cc PEEP 5 cm H2O Sodium (136-145) mEq/L Potassium (3.5-5.1) mEq/L Chloride (98-107) mEq/L Carbon Dioxide (23-29) mEq/L BUN (8-23) mg/dL Creatinine (0.60-1.20) mg/dL Est GFR ( Amer) (> 60) Est GFR (Non-Af Amer) (> 60) BUN/Creatinine Ratio (6-26) Glucose (70-105) mg/dL Calculated Osmolality (280-300) Lactic Acid (0.5-2.2) mmol/L Calcium (8.6-10.3) mg/dL Troponin I (< 0.04) ng/mL B-Natriuretic Peptide (Less than 100) pg/mL Urine Color Yellow (Yellow) Urine Clarity Cloudy A (Clear) Urine pH 6.5 (5.0-8.0) pH Units Ur Specific Hammond 1.008 L (1.010-1.025) Urine Protein >=300 H (Neg-Trace) mg/dL Urine Glucose (UA) 500 H (Normal) mg/dL Urine Ketones Negative (Negative) mg/dL Urine Blood Small H (Negative) Urine Nitrite Negative (Negative) Urine Bilirubin Negative (Negative) Urine Urobilinogen Normal (Normal) mg/dL Ur Leukocyte Esterase Trace H (Negative) Urine Microscopic RBC 3-5 H (0-3) per hpf Urine Microscopic WBC 15-30 H (0-3) per hpf Ur Squamous Epith Cells Many H (None-Few) per lpf Urine Bacteria Many H (None-Few) per hpf Ur Culture Indicated? NO. A (NO) 11/07/17 11/07/17 11/07/17 Range/Units 00:46 00:46 00:46 WBC 15.2 H (4.3-11.1) K/mcL RBC 4.08 (3.82-4.97) M/mcL Hgb 11.2 L (11.5-15.4) g/dL Hct 35.5 (35.3-44.9) % MCV 87.0 (83.0-100.0) fL MCH 27.5 L (28.0-33.3) pg MCHC 31.5 L (31.6-35.5) g/dL RDW 15.9 H (11.5-14.5) % Plt Count 186 (140-400) K/mcL MPV 9.2 L (9.4-12.4) fL Immature Gran % 1.8 (0-4) % Seg Neutrophils % 85.4 % Lymphocytes % 6.2 % Monocytes % 4.5 % Eosinophils % 1.4 % Basophils % 0.7 % Neutrophils # 13.0 H (1.6-8.9) K/mcL Lymphocytes # 0.9 (0.6-4.6) K/mcL Monocytes # 0.7 (0.0-1.3) K/mcL Eosinophils # 0.2 (0.0-0.6) K/mcL Basophils # 0.1 (0.0-0.2) K/mcL PT (9.4-12.1) Seconds INR Sample Site ABG pH (7.32-7.45) pH Units ABG pCO2 (35-45) mmHg ABG pO2 (85-104) mmHg ABG HCO3 (21-27) mEq/L ABG Total CO2 (20-26) mEq/L ABG O2 Saturation (95-98) % ABG Base Excess (-2 to 3) mEq/L Toby Test Respiration Rate O2 Delivery Device Blood Gas Modality Inspired O2 (1-15=lpm [id number]=%) Tidal Volume cc PEEP cm H2O Sodium 137 (136-145) mEq/L Potassium 3.7 (3.5-5.1) mEq/L Chloride 105 (98-107) mEq/L Carbon Dioxide 24 (23-29) mEq/L BUN 31 H (8-23) mg/dL Creatinine 2.84 H (0.60-1.20) mg/dL Est GFR ( Amer) 20 L (> 60) Est GFR (Non-Af Amer) 17 L (> 60) BUN/Creatinine Ratio 11 (6-26) Glucose 205 H (70-105) mg/dL Calculated Osmolality 296 (280-300) Lactic Acid 0.7 (0.5-2.2) mmol/L Calcium 8.9 (8.6-10.3) mg/dL Troponin I < 0.03 (< 0.04) ng/mL B-Natriuretic Peptide (Less than 100) pg/mL Urine Color (Yellow) Urine Clarity (Clear) Urine pH (5.0-8.0) pH Units Ur Specific Hammond (1.010-1.025) Urine Protein (Neg-Trace) mg/dL Urine Glucose (UA) (Normal) mg/dL Urine Ketones (Negative) mg/dL Urine Blood (Negative) Urine Nitrite (Negative) Urine Bilirubin (Negative) Urine Urobilinogen (Normal) mg/dL Ur Leukocyte Esterase (Negative) Urine Microscopic RBC (0-3) per hpf Urine Microscopic WBC (0-3) per hpf Ur Squamous Epith Cells (None-Few) per lpf Urine Bacteria (None-Few) per hpf Ur Culture Indicated? (NO) 11/07/17 Range/Units 00:46 WBC (4.3-11.1) K/mcL RBC (3.82-4.97) M/mcL Hgb (11.5-15.4) g/dL Hct (35.3-44.9) % MCV (83.0-100.0) fL MCH (28.0-33.3) pg MCHC (31.6-35.5) g/dL RDW (11.5-14.5) % Plt Count (140-400) K/mcL MPV (9.4-12.4) fL Immature Gran % (0-4) % Seg Neutrophils % % Lymphocytes % % Monocytes % % Eosinophils % % Basophils % % Neutrophils # (1.6-8.9) K/mcL Lymphocytes # (0.6-4.6) K/mcL Monocytes # (0.0-1.3) K/mcL Eosinophils # (0.0-0.6) K/mcL Basophils # (0.0-0.2) K/mcL PT (9.4-12.1) Seconds INR Sample Site ABG pH (7.32-7.45) pH Units ABG pCO2 (35-45) mmHg ABG pO2 (85-104) mmHg ABG HCO3 (21-27) mEq/L ABG Total CO2 (20-26) mEq/L ABG O2 Saturation (95-98) % ABG Base Excess (-2 to 3) mEq/L Toby Test Respiration Rate O2 Delivery Device Blood Gas Modality Inspired O2 (1-15=lpm [id number]=%) Tidal Volume cc PEEP cm H2O Sodium (136-145) mEq/L Potassium (3.5-5.1) mEq/L Chloride (98-107) mEq/L Carbon Dioxide (23-29) mEq/L BUN (8-23) mg/dL Creatinine (0.60-1.20) mg/dL Est GFR ( Amer) (> 60) Est GFR (Non-Af Amer) (> 60) BUN/Creatinine Ratio (6-26) Glucose (70-105) mg/dL Calculated Osmolality (280-300) Lactic Acid (0.5-2.2) mmol/L Calcium (8.6-10.3) mg/dL Troponin I (< 0.04) ng/mL B-Natriuretic Peptide 999 H (Less than 100) pg/mL Urine Color (Yellow) Urine Clarity (Clear) Urine pH (5.0-8.0) pH Units Ur Specific Hammond (1.010-1.025) Urine Protein (Neg-Trace) mg/dL Urine Glucose (UA) (Normal) mg/dL Urine Ketones (Negative) mg/dL Urine Blood (Negative) Urine Nitrite (Negative) Urine Bilirubin (Negative) Urine Urobilinogen (Normal) mg/dL Ur Leukocyte Esterase (Negative) Urine Microscopic RBC (0-3) per hpf Urine Microscopic WBC (0-3) per hpf Ur Squamous Epith Cells (None-Few) per lpf Urine Bacteria (None-Few) per hpf Ur Culture Indicated? (NO) - EKG Data EKG #1 EKG attestation: Yes I reviewed and interpreted this EKG. EKG results narrative: EKG done at 00 10 reviewed by myself and the attending shows sinus tachycardia rate of 105, NE interval 155, QRS 90, QTC 421 normal axis. There is no acute T- wave changes there is elevation of ST segment in V1. There is no other signs of ischemia. No heart block there is LVH with no signs of heart strain no WPW/ Brugada/HOCM. EKG is unchanged when compared with old one done 09/27/17 Attestation Statement - Attestation Attestation: I examined this patient and my medical decision-making was reviewed with the Resident Physician. I agree with the documented findings, disposition and treatment plan as described except to the extent set forth below. Findings consistent with acute respiratory failure and respiratory arrest. The patient was reported to have dyspnea by EMS. They reported hypoxia on the way to the hospital. When the patient arrived they had subsequent respiratory arrest in the room. The patient was emergently bagged, IO was placed in a left tibia, patient was subsequently intubated emergently. She had stabilization of vital signs following intubation. Head CT shows no evidence of acute findings. X- ray shows appropriately placed endotracheal tube. Laboratory analyses revealed mild heart failure. Suspect COPD exacerbation with concurrent heart failure. We will admit to ICU for ventilatory management and weaning. I spent greater than 35 minutes critical care time resuscitating this acutely ill patient suffering from acute respiratory failure. This was excluding billable procedures.
[2017-11-07 01:07] LABS: INR 1.2; Prothrombin Time 13.3 Seconds (9.4-12.1)
[2017-11-07 01:19] LABS: BUN/Creatinine Ratio 11 (6-26); Blood Urea Nitrogen 31 mg/dL (8-23); Calcium 8.9 mg/dL (8.6-10.3); Carbon Dioxide 24 mEq/L (23-29); Chloride 105 mEq/L (98-107); Glucose 205 mg/dL (70-105); Osmolality,Calculated 296 (280-300); Potassium 3.7 mEq/L (3.5-5.1); Sodium 137 mEq/L (136-145); Troponin I < 0.03 ng/mL (< 0.04); eGFR For Non-African Americans 17 (> 60)
--- NOTE | 2017-11-07 02:33 | Internal Med History&Physical ---
<Arian Guevara - Last Filed: 11/07/17 05:47> Date of Encounter: 11/07/17 Time of Encounter: 02:28 Internal Medicine - H&P: HPI Chief complaint: SOB Admitted From: Home History of present illness: Ms. Garcia is a 67 year old female diastolic CHF, COPD dependent on 4 L continuous home oxygen, diabetes, GERD, hypertension, hyperlipidemia, CKD stage IV, morbid obesity, and tobacco dependence who presented to the ED via EMS complaining of shortness of breath. Patient is intubated and sedated during the time of my evaluation all history of present illness was obtained from the medical record. Upon arrival to the ED, patient had altered mental status, acute respiratory distress, inability to answer questions, and difficulty protecting her airway. Patient had and IO placed in her left tibia due to difficulty obtaining IV access, was intubated for respiratory protection, and a central line was placed in the right femoral. ABG revealed pH 7.16, PCO2 83, PO2 131, HCO3 30, and O2 sat 90%. Patient was transferred to ICU for further management. Past Med Surg Social Fam HX - Past Medical History Medical history: arthritis, CHF, COPD, diabetes, GERD, hyperlipidemia, hypertension, RA, renal disease Psychiatric history: anxiety, bipolar - Past Surgical History Surgical History: angioplasty/stent, appendectomy, , cataract Additional surgical history: 1 cardiac stent - Social History Smoking Status: Current every day smoker Smokeless Tobacco Status: No Alcohol use: none Drug use: none - Family History Mother Living Status: Still Living Hx Family Cardiac Disorders: Yes Hx Family Respiratory Disorders: Yes (copd) Hx Family Cancer: Yes Hx Family Neurologic Disorders: Yes (alzheimer) Father Living Status: Hx Family Cardiac Disorders: Yes (VT) Hx Family Neurologic Disorders: Yes (Brain aneurysm) Brother Hx Family Endocrine Disorder: Yes (DM) Sister Hx Family Endocrine Disorder: Yes (DM) Internal Medicine - H&P: Meds ALPRAZolam [Xanax 1 MG Tablet] 1 mg PO BID 04/15/17 [History] Clopidogrel [Plavix] 75 mg PO DAILY 04/15/17 [History] DULoxetine [Cymbalta] 30 mg PO BID 04/15/17 [History] Famotidine [Heartburn Prevention] 20 mg PO BID 04/15/17 [History] Fenofibrate Nanocrystallized [Triglide] 160 mg PO DAILY 04/15/17 [History] Trazodone HCl 100 mg PO HS 04/15/17 [History] risperiDONE [Risperidone] 1 mg PO DAILY 04/15/17 [History] Insulin Regular U-500 [HumuLIN R U-500] 6 - 8 unit SQ DAILY 07/23/17 [History] Metoprolol Tartrate [Lopressor] 50 mg PO BID 07/23/17 [History] Ranolazine [Ranexa] 500 mg PO BID 07/23/17 [History] Rosuvastatin [Crestor] 40 mg PO HS 07/23/17 [History] Albuterol Sulfate [Ventolin Hfa] 2 puff IH Q6H PRN 09/28/17 [History] Budesonide/Formoterol 160/4.5 [Symbicort 160/4.5] 2 puff IH BIDR 09/28/17 [ History] Furosemide [Lasix] 40 mg PO DAILY 09/28/17 [History] HYDROcodone/Acet 5/325 mg [[place] 5-325 mg] 1 tab PO BID PRN 09/28/17 [History] Potassium Chloride [K-Tab ER] 20 meq PO BID 09/28/17 [History] Tiotropium [Spiriva] 1 puff IH DAILY 09/28/17 [History] Ergocalciferol (VITAMIN D2) [Drisdol (50,000 Unit)] 50,000 unit PO QWEEK #4 capsule 10/04/17 [Rx] Hydralazine HCl 100 mg PO TID #90 tablet 10/04/17 [Rx] NIFEdipine XL (24 HR) [Procardia XL] 90 mg PO DAILY 30 Days #45 tab.er.24 [Rx] 3 Allergy/AdvReac Type Severity Reaction Status Date / Time morphine Allergy Hallucinati Verified 09/27/17 17:49 ng Sulfa (Sulfonamide Allergy Rash Verified 09/27/17 17:49 Antibiotics) ROS unobtainable: due to endotracheal tube All Systems PM: A 10-system review of systems was performed and is negative for pertinent findings except as documented above in the HPI. - Constitutional Vitals: Temp Pulse Resp BP Pulse Ox 97.4 F L 66 20 190/91 97 11/06/17 23:53 11/07/17 01:33 11/07/17 01:33 11/07/17 01:33 11/07/17 01:33 General appearance: Present: morbidly obese (Intubated and sedated) Exam: Appears ill - Head Head exam: Present: atraumatic, normocephalic - Eye Eye exam: Present: PERRL, conjuntiva pink, sclera anicteric Pupils: Present: PERRL - ENT ENT exam: Present: mucous membranes dry (Intubated) - Neck Neck exam general surgery: Present: full ROM, supple, trachea midline - Respiratory Respiratory exam: Present: decreased breath sounds, rales (diffuse), respiratory distress (Intubated) - Cardiovascular Cardiovascular exam: Present: RRR. Absent: gallop, +S1, +S2 - GI/Abdominal GI/Abdominal exam: Present: hypoactive bowel sounds, soft (obese) - Additional comments: Hwang with dark urine output - Extremities Exam Extremities exam: Present: normal inspection, pedal edema (2+) - Back Exam Back exam: Present: normal inspection. Absent: rash noted - Neurological Exam Neurological exam: Present: altered (Sedated, responds to noxious stimuli) - Skin Skin exam: Present: dry, normal color (Right lower extremity surgical changes noted, no signs of cellulitis). Absent: warm Internal Med - H&P Results - Labs CBC & Chem 7: 11/07/17 00:46 11/07/17 00:46 Labs: Short CBC 11/07/17 Range/Units 00:46 WBC 15.2 H (4.3-11.1) K/mcL Hgb 11.2 L (11.5-15.4) g/dL Hct 35.5 (35.3-44.9) % Plt Count 186 (140-400) K/mcL Neutrophils # 13.0 H (1.6-8.9) K/mcL BMP 11/07/17 00:46 Sodium 137 Potassium 3.7 Chloride 105 Carbon Dioxide 24 BUN 31 H Creatinine 2.84 H Glucose 205 H Calcium 8.9 Cardiac Enzymes 11/07/17 Range/Units 00:46 Troponin I < 0.03 (< 0.04) ng/mL Urine 11/07/17 Range/Units 00:23 Urine Color Yellow (Yellow) Urine Clarity Cloudy A (Clear) Urine pH 6.5 (5.0-8.0) pH Units Ur Specific [place] 1.008 L (1.010-1.025) Urine Protein >=300 H (Neg-Trace) mg/dL Urine Glucose (UA) 500 H (Normal) mg/dL - ABG Interpretation ABG results: 11/07/17 11/07/17 00:23 05:33 ABG pH 7.16 L* 7.35 D ABG pCO2 83 H* 49 H D ABG pO2 131 H 67 L D ABG HCO3 30 H 27 ABG Total CO2 32 H 29 H ABG O2 Saturation 98 92 L ABG Base Excess -1 1 11/07/17 00:23 ABG pH 7.16 L* ABG pCO2 83 H* ABG pO2 131 H ABG HCO3 30 H ABG Total CO2 32 H ABG O2 Saturation 98 ABG Base Excess -1 - EKG Data -: EKG Interpreted by Myself Rate: tachycardia (HR 105, no signs of ischemia) - Impressions ITS Impressions Chest X-Ray 11/07/17 00:10 IMPRESSION: Appropriate endotracheal tube positioning. Probably mild edema with small bilateral effusions. D/ / Henrik Reyes / Henrik Reyes Interpreting Provider: Henrik Reyes X-Ray 11/07/17 01:11 IMPRESSION: Orogastric tube terminates over a location compatible with intragastric positioning. Right femoral line terminates in antegrade fashion. Unable to determine arterial or venous positioning as patient is slightly rotated. D/ / Henrik Reyes / Henrik Reyes Interpreting Provider: Henrik Reyes Head CT 11/07/17 01:29 IMPRESSION: No acute intracranial abnormality. Mild age-related cerebral volume loss and chronic white matter disease which likely reflects sequela of chronic microvascular ischemia, increased since 04/13/2007. D/ / Henrik Reyes / Henrik Reyes Interpreting Provider: Henrik Reyes - Assessment and plan (1) Hypertensive emergency Current Visit: Yes Status: Acute Assessment and plan: Patient presented with blood pressure 219/107, altered mental status, acute hypertensive encephalopathy versus hypercapnic encephalopathy CT brain results revealed no acute intracranial abnormality, mild age-related cerebral volume loss and chronic white matter disease which likely reflects sequela of chronic microvascular ischemia, increased since 04/13/2007. Nicardipine drip started Resume metoprolol 5 mg IV prn hypertension after off nicardipine drip Continue monitoring (2) Acute on chronic respiratory failure with hypoxia and hypercapnia Current Visit: Yes Status: Acute Assessment and plan: Patient presented with acute respiratory distress, and oxygen saturation level 65%, ABG with PCO2 level 83, wears 4 L continuous home oxygen Initial ABG revealed pH 7.16, PCO2 83, PO2 131, HCO3 30, and O2 sat 90% Patient intubated and sedated in the ED Continue bronchodilators Critical care consulted (3) Acute exacerbation of CHF (congestive heart failure) Current Visit: Yes Status: Acute Assessment and plan: Patient presents with elevated BNP 999, acute shortness of breath, orthopnea, diffuse crackles on exam, CXR revealed mild pulmonary edema with small bilateral effusions Echo 10/02/17 revealed LVEF 60-65%, normal LV chamber size and function, mild concentric LV hypertrophy Lasix 40 mg IV 1 given Consider further diuresis as tolerated, patient has CKD stage IV Qualifiers: Heart failure type: unspecified Qualified Code(s): I50.9 - Heart failure, unspecified (4) COPD exacerbation Current Visit: Yes Status: Acute Assessment and plan: Acute exacerbation COPD Continue antibiotics, bronchodilators, and IV steroids (5) CAD (coronary artery disease) Current Visit: No Status: Chronic Assessment and plan: Patient has history of coronary stent 1 EKG reveals no signs of ischemia Initial troponin < 0.03, trend serial troponins Qualifiers: Coronary Disease-Associated Artery/Lesion type: zuni artery [place] vs. transplanted heart: zuni heart Associated angina: without angina Qualified Code(s): I25.10 - Atherosclerotic heart disease of zuni coronary artery without angina pectoris (6) CKD (chronic kidney disease) stage 4, GFR 15-29 ml/min Current Visit: Yes Status: Chronic Assessment and plan: Baseline GFR 20 Continue renally dosed antibiotics Avoid nephrotoxins (7) Diabetes mellitus Current Visit: Yes Status: Chronic Assessment and plan: DM type II with Hyperglycemia, patient was also started on steroids Hemoglobin A1c level pending Continue Accu-Cheks and low dose SSI Qualifiers: Diabetes mellitus type: type 2 Diabetes mellitus group home insulin use: with assistant terminal manager use Diabetes mellitus complication status: with kidney complications Diabetes mellitus complication detail: with chronic kidney disease Chronic kidney disease stage: stage 4 (severe) Qualified Code(s): E11.22 - Type 2 diabetes mellitus with diabetic chronic kidney disease; N18.4 - Chronic kidney disease, stage 4 (severe); Z79.4 - detention (current) use of insulin (8) HUSAM (obstructive sleep apnea) Current Visit: No Status: Chronic Assessment and plan: Intubated, resume CPAP at bedtime once extubated (9) Tobacco abuse Current Visit: Yes Status: Chronic Assessment and plan: Tobacco cessation (10) Morbid obesity Current Visit: Yes Status: Chronic Assessment and plan: BMI of 48.4, lifestyle modification (11) DVT prophylaxis Current Visit: No Status: Acute Assessment and plan: Heparin subcutaneous TID (12) Healthcare-associated pneumonia Current Visit: Yes Status: Acute Assessment and plan: Patient presents with acute shortness of breath, increased oxygen requirement, leukocytosis 15.2, and recent hospitalization Patient started on empiric antibiotics vancomycin, Zosyn, and Levaquin Blood cultures pending Sputum culture pending Urine Legionella and strep pneumo antigens pending MRSA nasal screen pending Procalcitonin level pending De-escalate antibiotics based on culture results - Time Spent With Patient Total time spent is greater than 50% in coordination of care (as documented) at patient's floor/unit and/or counseling patient: <Ketan Paul - Last Filed: 11/07/17 06:58> Date of Encounter: 11/07/17 Time of Encounter: 06:00 ROS unobtainable: due to endotracheal tube - Constitutional Vitals: Temp Pulse Resp BP Pulse Ox 97.5 F L 69 20 199/79 100 11/07/17 05:20 11/07/17 06:00 11/07/17 06:00 11/07/17 06:00 11/07/17 06:00 Exam: sedated; breathing easily on ventilator now; responds appropriately to loud vocal commands - Head Head exam: Present: atraumatic, normal inspection - Eye Eye exam: Present: EOMI, PERRL. Absent: scleral icterus - ENT ENT exam: Present: mucous membranes dry Additional comments: ETT in place - Neck Neck exam general surgery: Present: full ROM, supple. Absent: tenderness, nuchal rigidity, thyromegaly - Respiratory Respiratory exam: Present: decreased breath sounds, prolonged expiratory phase, rales (mostly in right base), rhonchi, wheezes. Absent: chest wall tenderness - Cardiovascular Cardiovascular exam: Present: distant heart sounds, RRR, +S1, +S2 - GI/Abdominal GI/Abdominal exam: Present: hypoactive bowel sounds, soft. Absent: rebound, tenderness - Extremities Exam Extremities exam: Present: normal inspection, warm, radial pulses palpable and symmetrical. Absent: calf tenderness, tenderness - Back Exam Back exam: Absent: CVA tenderness (L), CVA tenderness (R) - Neurological Exam Additional comments: sedated; responds to verbal commands - Skin Skin exam: Present: dry, intact, warm Internal Med - H&P Results - Labs CBC & Chem 7: 11/07/17 05:45 11/07/17 05:45 Labs: Short CBC 11/07/17 Range/Units 05:45 WBC 12.4 H (4.3-11.1) K/mcL Hgb 11.3 L (11.5-15.4) g/dL Hct 35.6 (35.3-44.9) % Plt Count 183 (140-400) K/mcL Neutrophils # 11.4 H (1.6-8.9) K/mcL BMP 11/07/17 05:45 Sodium 137 Potassium 4.0 Chloride 104 Carbon Dioxide 25 BUN 31 H Creatinine 2.67 H Glucose 215 H Calcium 9.2 Cardiac Enzymes 11/07/17 Range/Units 05:45 Troponin I 0.03 (< 0.04) ng/mL Liver Function 11/07/17 Range/Units 05:45 Total Bilirubin 0.8 (0.3-1.0) mg/dL AST 17 (13-39) Units/L ALT 7 (7-52) Units/L Alkaline Phosphatase 46 (34-104) Units/L Albumin 3.3 L (3.5-5.7) g/dL Urine 11/07/17 Range/Units 06:15 Urine Color Yellow (Yellow) Urine Clarity Clear (Clear) Urine pH 6.5 (5.0-8.0) pH Units Ur Specific [place] 1.011 (1.010-1.025) Urine Protein >=300 H (Neg-Trace) mg/dL Urine Glucose (UA) 250 H (Normal) mg/dL - ABG Interpretation ABG results: 11/07/17 05:33 ABG pH 7.35 D ABG pCO2 49 H D ABG pO2 67 L D ABG HCO3 27 ABG Total CO2 29 H ABG O2 Saturation 92 L ABG Base Excess 1 - Assessment and plan (1) CAD (coronary artery disease) Current Visit: No Status: Chronic Qualifiers: Coronary Disease-Associated Artery/Lesion type: [place]uni artery [place] vs. transplanted heart: zuni heart Associated angina: without angina Qualified Code(s): I25.10 - Atherosclerotic heart disease of zuni coronary artery without angina pectoris (2) HUSAM (obstructive sleep apnea) Current Visit: No Status: Chronic (3) Diabetes mellitus Current Visit: Yes Status: Chronic Qualifiers: Diabetes mellitus type: type 2 Diabetes mellitus assistant terminal manager insulin use: with group home use Diabetes mellitus complication status: with kidney complications Diabetes mellitus complication detail: with chronic kidney disease Chronic kidney disease stage: stage 4 (severe) Qualified Code(s): E11.22 - Type 2 diabetes mellitus with diabetic chronic kidney disease; N18.4 - Chronic kidney disease, stage 4 (severe); Z79.4 - detention (current) use of insulin (4) COPD exacerbation Current Visit: Yes Status: Acute (5) Tobacco abuse Current Visit: Yes Status: Chronic (6) Morbid obesity Current Visit: Yes Status: Chronic (7) DVT prophylaxis Current Visit: No Status: Acute (8) CKD (chronic kidney disease) stage 4, GFR 15-29 ml/min Current Visit: Yes Status: Chronic (9) Acute exacerbation of CHF (congestive heart failure) Current Visit: Yes Status: Acute Qualifiers: Heart failure type: unspecified Qualified Code(s): I50.9 - Heart failure, unspecified (10) Acute on chronic respiratory failure with hypoxia and hypercapnia Current Visit: Yes Status: Acute (11) Hypertensive emergency Current Visit: Yes Status: Acute (12) Healthcare-associated pneumonia Current Visit: Yes Status: Acute - Time Spent With Patient Total time spent is greater than 50% in coordination of care (as documented) at patient's floor/unit and/or counseling patient: - Attending Attestation I discussed the KETCHIKAN, past medical history, lab data, imaging finding, and exam findings with Dr. Guevara. I then saw and evaluated patient independently in the intensive care unit. She is currently sedated and breathing in sync with the ventilator. She does respond to loud verbal command and painful stimuli. She responds purposely. Her blood pressure is very elevated and running 220s/120s. We are starting nicardipine drip to maintain her systolic blood pressure 160 to 180. No history could be obtained from patient given her status and intubation. I reviewed the ER records and old medical records as well. I discussed with the ER attending as well who stated she came in respiratory extremis and actually arrested from a respiratory standpoint. Therefore, she was emergently intubated in the ER and had intraosseous line in place for access as she has no venous access that time. CT head was negative. We will continue her mechanical ventilation for now and continue with aggressive measures in the form of aerosols and antibiotics and oxygen support. Once her blood pressure stabilize and she is stabilized and alert, patient may be candidate for ventilator wean with 1 to 2 days. We will ask ICU attending/ sidehand to assume care in ICU. Other than my comments above and documented exam findings, I agree with Dr. Guevara's assessment and plan. Note: total of 45 minutes critical care time spent assessing, evaluating, and coordinating care of the patient.
[2017-11-07] MEDS ORDERED: Sennosides/Docusate Sodium TABLET PO PRN (02:40)
[2017-11-07] MEDS ORDERED: Naloxone 0.4 MG/ML INJ IVP PRN (02:40)
[2017-11-07] MEDS ORDERED: Artificial Tears SOLN 15 ML BOTTLE BOTH EYES PRN (02:40)
[2017-11-07] MEDS ORDERED: Ondansetron 4 MG/2 ML VIAL IVP PRN (02:40)
[2017-11-07] MEDS ORDERED: Vancomycin 1,000 MG VIAL IVPB PRN (03:00)
[2017-11-07] MEDS ORDERED: Dextrose Gel 15 GM/37.5 ML TUBE PO PRN ×2 (03:16)
[2017-11-07] MEDS ORDERED: *HR* Dextrose 50 % in Water (Syg) 50 ML SYRINGE IVP PRN (03:16)
[2017-11-07] MEDS ORDERED: D5% in Water 1,000 ML IVC PRN (03:16)
[2017-11-07] MEDS ORDERED: Propofol 500 MG/50 ML INFUS..BTL ONE ×2 (03:45→05:11)
[2017-11-07] MEDS ORDERED: Furosemide 40 MG/4 ML VIAL IVP ONE (05:30)
[2017-11-07 05:36] LABS: ABG Base Excess 1 mEq/L (-2 to 3); ABG HCO3 27 mEq/L (21-27); ABG Oxygen Saturation 92 % (95-98); ABG PCO2 49 mmHg (35-45); ABG PH 7.35 pH Units (7.32-7.45); ABG PO2 67 mmHg (85-104); ABG TCO2 29 mEq/L (20-26); Blood Gas Modality PRVC; Blood Gas PEEP 5 cm H2O; Blood Gas Respiration Rate 20; Blood Gas VT 360 cc
[2017-11-07] MEDS: Ipratropium/Albuterol Neb 3 ML IH SCH ×6 (05:36→23:24)
[2017-11-07] MEDS: Pantoprazole 40 MG VIAL IVP SCH (05:49)
[2017-11-07] MEDS: Artificial Tears SOLN 15 ML BOTTLE BOTH EYES SCH ×6 (05:50→23:38)
[2017-11-07] MEDS: *HR* Heparin 5,000 UNIT/ML VIAL SQ SCH ×3 (05:50→21:59)
[2017-11-07] MEDS: Insulin LISPRO 300 UNITS/3 ML VIAL SQ SCH ×5 (05:50→23:41)
[2017-11-07] MEDS: niCARdipine 40 MG/200 ML MLS IVC SCH ×4 (05:56→22:00)
[2017-11-07 05:59] LABS: Basophils # 0.1 K/mcL (0.0-0.2); Basophils % 0.4 %; Eosinophils % 0.2 %; Hematocrit 35.6 % (35.3-44.9); Hemoglobin 11.3 g/dL (11.5-15.4); Immature Granulocytes % 1.4 % (0-4); Lymphocytes # 0.5 K/mcL (0.6-4.6); Mean Corpuscular HGB Conc 31.7 g/dL (31.6-35.5); Mean Corpuscular Hemoglobin 27.1 pg (28.0-33.3); Mean Corpuscular Volume 85.4 fL (83.0-100.0); Mean Platelet Volume 9.1 fL (9.4-12.4); Monocytes # 0.2 K/mcL (0.0-1.3); Monocytes % 1.7 %; Neutrophils # 11.4 K/mcL (1.6-8.9); Platelet Count 183 K/mcL (140-400); Red Blood Count 4.17 M/mcL (3.82-4.97); Red Cell Distribution Width 15.8 % (11.5-14.5); Segmented Neutrophils % 92.3 %
[2017-11-07] MEDS ORDERED: MethylPREDNISolone 40 MG/ML VIAL IVP SCH (06:00)
[2017-11-07 06:20] LABS: Albumin 3.3 g/dL (3.5-5.7); Albumin/Globulin Ratio 1.2 (1.1-2.2); Bilirubin,Total 0.8 mg/dL (0.3-1.0); Calcium 9.2 mg/dL (8.6-10.3); Globulin 2.8 g/dL (2.4-3.5); Magnesium 1.9 mg/dL (1.6-2.6); Phosphorous 3.3 mg/dL (2.7-4.5); Total Protein 6.1 g/dL (6.4-8.9)
[2017-11-07 06:22] LABS: Bilirubin,Urine Negative (Negative); Blood,Urine Negative (Negative); Clarity,Urine Clear (Clear); Color,Urine Yellow (Yellow); Glucose,Urine (UA) 250 mg/dL (Normal); Ketones,Urine Negative (Negative); Leukocyte Esterase,Urine Negative (Negative); Nitrite,Urine Negative (Negative); PH,Urine 6.5 pH Units (5.0-8.0); Protein,Urine >=300 mg/dL (Neg-Trace); Specific Gravity,Urine 1.011 (1.010-1.025); Urobilinogen,Urine Normal (Normal)
[2017-11-07 06:25] LABS: WBC,Urine 15-30 per hpf (0-3)
[2017-11-07 06:32] LABS: Troponin I 0.03 ng/mL (< 0.04)
[2017-11-07 06:33] LABS: Thyroid Stimulating Hormone 3.023 mcIU/mL (0.340-5.600)
[2017-11-07 06:35] LABS: Bacteria,Urine Few per hpf (None-Few); Hyaline Casts,Urine Few per lpf (None-Few); Squamous Epithelial Cell,Urine Moderate per lpf (None-Few)
--- NOTE | 2017-11-07 07:55 | Pulmonology Consult Note ---
<Yuriy Aquino W - Last Filed: 11/07/17 10:09> Date of Encounter: 11/07/17 Medications and Allergies ALPRAZolam [Xanax 1 MG Tablet] 1 mg PO BID 04/15/17 [History] Clopidogrel [Plavix] 75 mg PO DAILY 04/15/17 [History] DULoxetine [Cymbalta] 30 mg PO BID 04/15/17 [History] Famotidine [Heartburn Prevention] 20 mg PO BID 04/15/17 [History] Fenofibrate Nanocrystallized [Triglide] 160 mg PO DAILY 04/15/17 [History] Trazodone HCl 100 mg PO HS 04/15/17 [History] risperiDONE [Risperidone] 1 mg PO DAILY 04/15/17 [History] Metoprolol Tartrate [Lopressor] 50 mg PO BID 07/23/17 [History] Ranolazine [Ranexa] 500 mg PO BID 07/23/17 [History] Rosuvastatin [Crestor] 40 mg PO HS 07/23/17 [History] Albuterol Sulfate [Ventolin Hfa] 2 puff IH Q6H PRN 09/28/17 [History] Budesonide/Formoterol 160/4.5 [Symbicort 160/4.5] 2 puff IH BIDR 09/28/17 [ History] Furosemide [Lasix] 40 mg PO QPM 09/28/17 [History] HYDROcodone/Acet 5/325 mg [[place] 5-325 mg] 1 tab PO BID PRN 09/28/17 [History] Potassium Chloride [K-Tab ER] 20 meq PO BID 09/28/17 [History] Tiotropium [Spiriva] 1 puff IH DAILY 09/28/17 [History] Ergocalciferol (VITAMIN D2) [Drisdol (50,000 Unit)] 50,000 unit PO QWEEK #4 capsule 10/04/17 [Rx] Hydralazine HCl 100 mg PO TID #90 tablet 10/04/17 [Rx] NIFEdipine XL (24 HR) [Procardia XL] 90 mg PO DAILY 30 Days #45 tab.er.24 [Rx] Furosemide [Lasix] 60 mg PO QAM 11/07/17 [History] Insulin LISPRO [Humalog] 25 unit SQ TID 11/07/17 [History] 3 Allergy/AdvReac Type Severity Reaction Status Date / Time morphine Allergy Hallucinati Verified 09/27/17 17:49 ng Sulfa (Sulfonamide Allergy Rash Verified 09/27/17 17:49 Antibiotics) All Systems: The remainder of the systems were reviewed and are negative Physical Examination Vital Signs: Vital Signs, Last 4 Hours Temp Pulse Resp BP Pulse Ox 11/07/17 09:00 68 17 167/69 94 11/07/17 08:00 66 17 171/70 93 11/07/17 07:46 16 167/69 91 11/07/17 07:10 97.5 F L Ventilator Settings Ventilator Settings: Ventilator Settings, Last 8 Hours Ventilator Tidal Volume 360 Setting Ventilator Tidal Volume 360 Setting Ventilator Tidal Volume 360 Setting Ventilator Tidal Volume 360 Setting Ventilator Tidal Volume 360 Setting Ventilator Tidal Volume 360 Setting Ventilator Tidal Volume 360 Setting Ventilator Tidal Volume 360 Setting Ventilator Tidal Volume 360 Setting Ventilator Respiratory Rate 16 Setting Ventilator Respiratory Rate 16 Setting Ventilator Respiratory Rate 16 Setting Ventilator Respiratory Rate 16 Setting Ventilator Respiratory Rate 20 Setting Ventilator Respiratory Rate 20 Setting Ventilator Respiratory Rate 20 Setting Ventilator Respiratory Rate 20 Setting Ventilator Respiratory Rate 20 Setting Actual Respiratory Rate 17 Actual Respiratory Rate 18 Actual Respiratory Rate 17 Actual Respiratory Rate 16 Actual Respiratory Rate 20 Actual Respiratory Rate 20 Actual Respiratory Rate 18 Actual Respiratory Rate 20 Positive End Expiratory 8 Pressure Positive End Expiratory 8 Pressure Positive End Expiratory 8 Pressure Positive End Expiratory 8 Pressure Positive End Expiratory 5 Pressure Positive End Expiratory 5 Pressure Positive End Expiratory 5 Pressure Positive End Expiratory 5 Pressure Positive End Expiratory 5 Pressure Peak Inspiratory Airway 20 Pressure Peak Inspiratory Airway 22 Pressure Peak Inspiratory Airway 20 Pressure Peak Inspiratory Airway 21 Pressure Peak Inspiratory Airway 22 Pressure Peak Inspiratory Airway 29 Pressure Peak Inspiratory Airway 29 Pressure Peak Inspiratory Airway 26 Pressure Results - Laboratory Findings CBC and BMP: 11/07/17 05:45 11/07/17 05:45 ABG ABG pH 7.35 pH Units (7.32-7.45) D 11/07/17 05:33 ABG pCO2 49 mmHg (35-45) H D 11/07/17 05:33 ABG pO2 67 mmHg (85-104) L D 11/07/17 05:33 ABG O2 Saturation 92 % (95-98) L 11/07/17 05:33 PT/INR, D-dimer PT 13.3 Seconds (9.4-12.1) H 11/07/17 00:10 Abnormal lab findings: Abnormal lab results WBC 12.4 K/mcL (4.3-11.1) H 11/07/17 05:45 Hgb 11.3 g/dL (11.5-15.4) L 11/07/17 05:45 MCH 27.1 pg (28.0-33.3) L 11/07/17 05:45 RDW 15.8 % (11.5-14.5) H 11/07/17 05:45 MPV 9.1 fL (9.4-12.4) L 11/07/17 05:45 Neutrophils # 11.4 K/mcL (1.6-8.9) H 11/07/17 05:45 Lymphocytes # 0.5 K/mcL (0.6-4.6) L 11/07/17 05:45 PT 13.3 Seconds (9.4-12.1) H 11/07/17 00:10 ABG pCO2 49 mmHg (35-45) H D 11/07/17 05:33 ABG pO2 67 mmHg (85-104) L D 11/07/17 05:33 ABG Total CO2 29 mEq/L (20-26) H 11/07/17 05:33 ABG O2 Saturation 92 % (95-98) L 11/07/17 05:33 BUN 31 mg/dL (8-23) H 11/07/17 05:45 Creatinine 2.67 mg/dL (0.60-1.20) H 11/07/17 05:45 Est GFR ( Amer) 22 (> 60) L 11/07/17 05:45 Est GFR (Non-Af Amer) 18 (> 60) L 11/07/17 05:45 Glucose 215 mg/dL (70-105) H 11/07/17 05:45 B-Natriuretic Peptide 999 pg/mL (Less than 100) H 11/07/17 00:46 Serum Total Protein 6.1 g/dL (6.4-8.9) L 11/07/17 05:45 Albumin 3.3 g/dL (3.5-5.7) L 11/07/17 05:45 PTH Intact 175.6 pg/ml (10.0-65.0) H 11/07/17 05:45 Urine Protein >=300 mg/dL (Neg-Trace) H 11/07/17 06:15 Urine Glucose (UA) 250 mg/dL (Normal) H 11/07/17 06:15 Urine Microscopic RBC 5-15 per hpf (0-3) H 11/07/17 06:15 Urine Microscopic WBC 15-30 per hpf (0-3) H 11/07/17 06:15 Ur Squamous Epith Cells Moderate per lpf (None-Few) H 11/07/17 06:15 - Clinical Findings Intake & Output: Intake & Output 11/06/17 11/07/17 11/07/17 23:59 07:59 15:59 Intake Total 600 / 1881 100 / 100 Output Total 300 / 300 Balance 300 / 1581 100 / 100 Weight 128.4 kg Consult Discharge Plan - Plan Referrals: Jay Valenzuela DO [Primary Care Provider] - - Attending Attestation I examined this patient and my medical decision-making was reviewed with the Resident Physician. I agree with the documented findings, disposition and treatment plan as described except to the extent set forth below. We independently had [id number] contact with the patient I spent 38min of Critical Care time with this patient. It involved decision making of high complexity to assess, manipulate, and support vital organ system failure and/or to prevent further life threatening deterioration of the patient' s condition. The time involved in the performance of separately reportable procedures was not counted toward critical care time. Patient seen and examined at bedside Labs, radiology, chart personally reviewed. Management was reviewed during multidisciplinary critical care rounds. 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 Head CT without acute process. Sedation while on vent for goal Emerson 2-3 Pulm: Acute on chronic hypoxic hypercapnic respiratory failure likely secondary to cardiogenic pulmonary edema possibly complicated by pneumonia possibly complicated by a COPD exacerbation she is on ventilator now with acceptable gas exchange I have increased her PEEP to decrease preload because of heart failure otherwise acceptable oxygenation and respiratory mechanics are appropriate.. Continue bronchodilators for COPD she has received IV glucocorticoids which I suspect in be discontinued over the next 24 hours Cards: Acutely decompensated diastolic heart failure secondary to hypertensive emergency with evidence of hydrostatic pulmonary edema. Patient is on nicardipine drip with plan to decrease blood pressure by about 15-20% which has been achieved we will restart her home oral antihypertensives at this time with plan to stop nicardipine over the next 3-6 hours. Can likely reinstitute diuretic later today versus tomorrow but at first I believe that the blood pressure control is the primary objective GI: GI prophylaxis given Nutrition: Nothing by mouth for now Renal: Acute on chronic kidney injury likely secondary to hypertension and heart failure. Can likely restart diuresis later today. UOP Monitored, Cont to Trend sCr and monitor Electrolytes. ID: possible pneumonia with suspected aspiration given encephalopathy she is on empiric coverage for this planned to de-escalate based upon clinical course/ microbiological sensitivities Heme/Onc: DVT prophylaxis given Endo: Glucose Monitored Integ/MSK: Skin Care per routine ICU Nursing Protocol to prevent ulcers. Lines: All lines examined without evidence of infection : Dispo: ICU for critical illness CODE: full <Toi Smith - Last Filed: 11/07/17 14:26> Date of Encounter: 11/07/17 Time of Encounter: 07:00 Assessment and Plan (1) Acute on chronic respiratory failure with hypoxia and hypercapnia Current Visit: Yes Status: Acute Acute respiratory distress at arrival to ED. Hypoxic with O2 sat 65%, resp acidosis on ABG, pH 7.16, PaCO2 83 in ED. Likely 2/2 cardiogenic pulm edema Intubated and sedated currently. Repeat ABG today pH 7.35, pCO2 49, pO2 67. Increased her PEEP to decrease preload with her heart failure. Will continue to monitor and likely add diuresis tomorrow. (2) Heart failure, diastolic, with acute decompensation Current Visit: Yes Status: Acute Acute decompensation likely 2/2 hypertensive emergency Acutely SOB on arrival, orthopnea, diffuse crackles, pulm edema and bilateral pleural effusions on imaging. BNP 999 Previous ECHO 10/02/17 EF 60-65% Received single 40mg lasix last night. Will hold lasix today in setting of TAMEKA and hypertensive emergency. Likely start diuresis tomorrow when BP stable. (3) Hypertensive emergency Current Visit: Yes Status: Acute Hypertensive overnight with systolics in 230's. No acute process on CT head. Nicardipine infusion started overnight. Pressures more stable with nicardipine. Will try to wean nicardipine and start home antihypertensives today. Continue to monitor. (4) Encephalopathy acute Current Visit: Yes Status: Acute Likely 2/2 hypertensive emergency with superimposing hypercarbic resp failure. CT head without acute process. Possible pneumonia on imaging. Possible aspiration in setting of encephalopathy. Will wean sedation as tolerated while intubated with goal correa 3. Will asses as sedation is weaned. (5) Pneumonia Current Visit: Yes Status: Acute Aspiration in setting of encephalopathy vs HAP with recent hospitalization Started on empiric abx vancomycin, zosyn, and levaquin Blood and sputum cultures pending MRSA and resp PCR neg. Will dc vancomycin and levofloxacin while continuing pip/kolton for anaerobic coverage with aspiration origin concern. Qualifiers: Pneumonia type: due to unspecified organism Laterality: unspecified laterality Lung location: unspecified part of lung Qualified Code(s): J18.9 - Pneumonia, unspecified organism (6) CKD (chronic kidney disease) stage 4, GFR 15-29 ml/min Current Visit: Yes Status: Chronic Cr 2.67, gfr 18. This appears to be within her baseline during past admissions. UOP adequate. Will trend Cr, uop, renally dose meds, and electrolytes and replete as indicated. (7) Diabetes mellitus Current Visit: Yes Status: Chronic Hx type 2 dm. 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 Resp failure more likely 2/2 acute decompensated heart failure over copd exacerbation. On vent now. Stopped IV steroids. Continue pip/kolton Wean vent as tolerated. (9) DVT prophylaxis Current Visit: No Status: Acute Chemical prophylaxis History of Present Illness Consult date: 11/07/17 Requesting physician: Ketan Paul Reason for consult: other (Vent management) Chief complaint: SOB History of present illness: Ms Garcia is a 67 year old woman with pmh significant for HFpEF, COPD on 4L home O2, DM, HTN, HLD, and CKD IV. Hx comes from medical record as she is intubated and sedated. She presented to the ED with SOB via EMS. She was found to have AMS, acute resp distress, and concerns of inability to protect her airway. She was intubated in ED for airway protection. L tibial IO was exchanged for a R femoral central line due to inability to gain peripheral access. ABG in ED showed a resp acidosis. Brought to ICU after. She became hypertensive with systolics in the 230's and started on a nicardipine infusion. Past Med Surg Social Fam HX - Past Medical History Medical history: arthritis, CHF, COPD, diabetes, GERD, hyperlipidemia, hypertension, RA, renal disease Psychiatric history: anxiety, bipolar - Past Surgical History Surgical History: angioplasty/stent, appendectomy, , cataract Additional surgical history: 1 cardiac stent - Social History Smoking Status: Current every day smoker Smokeless Tobacco Status: No Alcohol use: none Drug use: none - Family History Mother Living Status: Still Living Hx Family Cardiac Disorders: Yes Hx Family Respiratory Disorders: Yes (copd) Hx Family Cancer: Yes Hx Family Neurologic Disorders: Yes (alzheimer) Father Living Status: Hx Family Cardiac Disorders: Yes (MA) Hx Family Neurologic Disorders: Yes (Brain aneurysm) Brother Hx Family Endocrine Disorder: Yes (DM) Sister Hx Family Endocrine Disorder: Yes (DM) ROS unobtainable: due to endotracheal tube (Intubated and sedated) All Systems: The remainder of the systems were reviewed and are negative Physical Examination Vital Signs: Vital Signs, Last 4 Hours Temp Pulse Resp BP Pulse Ox 11/07/17 06:00 69 20 199/79 100 11/07/17 05:36 20 216/93 92 11/07/17 05:20 97.5 F L 64 18 215/97 93 11/07/17 05:15 20 98 11/07/17 04:42 62 18 156/54 95 11/07/17 04:12 20 160/58 General appearance: no acute distress, asleep (intubated and sedated. ) Eyes: nonicteric ENT: oropharynx dry Effort: other (On vent) Auscultation: bilateral: rales Cardiovascular: regular rate and rhythm Gastrointestinal: normoactive bowel sounds, soft, non-tender Extremities: no cyanosis, edema (2+) other (intubated and sedated ) Ventilator Settings Ventilator Settings: Ventilator Settings, Last 8 Hours Ventilator Tidal Volume 360 Setting Ventilator Tidal Volume 360 Setting Ventilator Tidal Volume 360 Setting Ventilator Tidal Volume 360 Setting Ventilator Tidal Volume 360 Setting Ventilator Respiratory Rate 20 Setting Ventilator Respiratory Rate 20 Setting Ventilator Respiratory Rate 20 Setting Ventilator Respiratory Rate 20 Setting Ventilator Respiratory Rate 20 Setting Actual Respiratory Rate 20 Actual Respiratory Rate 20 Actual Respiratory Rate 18 Actual Respiratory Rate 20 Positive End Expiratory 5 Pressure Positive End Expiratory 5 Pressure Positive End Expiratory 5 Pressure Positive End Expiratory 5 Pressure Positive End Expiratory 5 Pressure Peak Inspiratory Airway 22 Pressure Peak Inspiratory Airway 29 Pressure Peak Inspiratory Airway 29 Pressure Peak Inspiratory Airway 26 Pressure Results - Laboratory Findings CBC and BMP: 11/07/17 05:45 11/07/17 05:45 ABG ABG pH 7.35 pH Units (7.32-7.45) D 11/07/17 05:33 ABG pCO2 49 mmHg (35-45) H D 11/07/17 05:33 ABG pO2 67 mmHg (85-104) L D 11/07/17 05:33 ABG O2 Saturation 92 % (95-98) L 11/07/17 05:33 PT/INR, D-dimer PT 13.3 Seconds (9.4-12.1) H 11/07/17 00:10 Abnormal lab findings: Abnormal lab results WBC 12.4 K/mcL (4.3-11.1) H 11/07/17 05:45 Hgb 11.3 g/dL (11.5-15.4) L 11/07/17 05:45 MCH 27.1 pg (28.0-33.3) L 11/07/17 05:45 RDW 15.8 % (11.5-14.5) H 11/07/17 05:45 MPV 9.1 fL (9.4-12.4) L 11/07/17 05:45 Neutrophils # 11.4 K/mcL (1.6-8.9) H 11/07/17 05:45 Lymphocytes # 0.5 K/mcL (0.6-4.6) L 11/07/17 05:45 PT 13.3 Seconds (9.4-12.1) H 11/07/17 00:10 ABG pCO2 49 mmHg (35-45) H D 11/07/17 05:33 ABG pO2 67 mmHg (85-104) L D 11/07/17 05:33 ABG Total CO2 29 mEq/L (20-26) H 11/07/17 05:33 ABG O2 Saturation 92 % (95-98) L 11/07/17 05:33 BUN 31 mg/dL (8-23) H 11/07/17 05:45 Creatinine 2.67 mg/dL (0.60-1.20) H 11/07/17 05:45 Est GFR ( Amer) 22 (> 60) L 11/07/17 05:45 Est GFR (Non-Af Amer) 18 (> 60) L 11/07/17 05:45 Glucose 215 mg/dL (70-105) H 11/07/17 05:45 B-Natriuretic Peptide 999 pg/mL (Less than 100) H 11/07/17 00:46 Serum Total Protein 6.1 g/dL (6.4-8.9) L 11/07/17 05:45 Albumin 3.3 g/dL (3.5-5.7) L 11/07/17 05:45 PTH Intact 175.6 pg/ml (10.0-65.0) H 11/07/17 05:45 Urine Protein >=300 mg/dL (Neg-Trace) H 11/07/17 06:15 Urine Glucose (UA) 250 mg/dL (Normal) H 11/07/17 06:15 Urine Microscopic RBC 5-15 per hpf (0-3) H 11/07/17 06:15 Urine Microscopic WBC 15-30 per hpf (0-3) H 11/07/17 06:15 Ur Squamous Epith Cells Moderate per lpf (None-Few) H 11/07/17 06:15 - Clinical Findings Intake & Output: Intake & Output 11/06/17 11/06/17 11/07/17 15:59 23:59 07:59 Intake Total 600 / 1881 Output Total 300 / 300 Balance 300 / 1581 Weight 128.4 kg
[2017-11-07] MEDS: Piperacillin/Tazobactam 3.375 GM in 0.9 % Sodium Chloride Mini Bag 100 ML IVPB SCH ×3 (08:19→23:35)
[2017-11-07] MEDS: Chlorhexidine Rinse 15 ML MOUTHWASH MM SCH ×2 (08:20→20:14)
[2017-11-07 10:07] LABS: Adenovirus Not Detected (Not Detect); Bordetella Pertussis Not Detected (Not Detect); Chlamydophila pneumoniae Not Detected (Not Detect); Coronavirus 229E Not Detected (Not Detect); Coronavirus HKU1 Not Detected (Not Detect); Coronavirus NL63 Not Detected (Not Detect); Coronavirus OC43 Not Detected (Not Detect); Human Metapneumovirus Not Detected (Not Detect); Human Rhinovirus/Enterovirus Not Detected (Not Detect); Influenza A Subtype 2009 H1 Not Detected (Not Detect); Influenza A Untypeable Not Detected (Not Detect); Influenza B Not Detected (Not Detect); Mycoplasma pneumoniae Not Detected (Not Detect); Parainfluenza Virus 1 Not Detected (Not Detect); Parainfluenza Virus 2 Not Detected (Not Detect); Parainfluenza Virus 3 Not Detected (Not Detect); Parainfluenza Virus 4 Not Detected (Not Detect); Respiratory Syncytial Virus Not Detected (Not Detect)
[2017-11-07] MEDS ORDERED: *HR* Rocuronium Bromide 100 MG/10 ML VIAL IVC ONE (13:29)
[2017-11-07] MEDS: hydrALAZINE 25 MG TABLET PO SCH ×2 (14:56→20:14)
[2017-11-07 15:14] LABS: Calcium 9.1 mg/dL (8.6-10.3); Magnesium 1.9 mg/dL (1.6-2.6); Potassium 3.7 mEq/L (3.5-5.1)
[2017-11-07] MEDS: NIFEdipine 10 MG CAPSULE PO SCH ×2 (17:49→23:55)
[2017-11-07 18:43] LABS: Acinetobacter baumannii by PCR Not Detected (Not Detect); Candida albicans by PCR Not Detected (Not Detect); Candida glabrata by PCR Not Detected (Not Detect); Candida krusei by PCR Not Detected (Not Detect); Candida parapsilosis by PCR Not Detected (Not Detect); Candida tropicalis by PCR Not Detected (Not Detect); Enterobacter cloacae Cmplx PCR Not Detected (Not Detect); Enterobacteriaceae by PCR Not Detected (Not Detect); Enterococcus by PCR DETECTED (Not Detect); Escherichia coli by PCR Not Detected (Not Detect); Klebsiella oxytoca by PCR Not Detected (Not Detect); Klebsiella pneumoniae by PCR Not Detected (Not Detect); Proteus by PCR Not Detected (Not Detect); Pseudomonas aeruginosa by PCR Not Detected (Not Detect); Serratia marcescens by PCR Not Detected (Not Detect); Staphylococcus aureus by PCR Not Detected (Not Detect); Staphylococcus by PCR Not Detected (Not Detect); Streptococcus agalactiae(B)PCR Not Detected (Not Detect); Streptococcus by PCR Not Detected (Not Detect); Streptococcus pneumoniae PCR Not Detected (Not Detect); Streptococcus pyogenes (A) PCR Not Detected (Not Detect); vanA/B Vancomycin-Resist Genes Not Detected (Not Detect)
[2017-11-07] MEDS: Budesonide/Formoterol 160/4.5 1 PUFF INH IH SCH (19:45)
[2017-11-08] MEDS: niCARdipine 40 MG/200 ML MLS IVC SCH ×4 (03:19→17:10)
[2017-11-08] MEDS: Ipratropium/Albuterol Neb 3 ML IH SCH ×6 (03:26→23:56)
[2017-11-08 03:45] LABS: Basophils % 0.3 %; Hematocrit 29.7 % (35.3-44.9); Hemoglobin 9.5 g/dL (11.5-15.4); Immature Granulocytes % 1.1 % (0-4); Immature Platelets 2.8 % (1.1-6.1); Lymphocytes # 0.8 K/mcL (0.6-4.6); Lymphocytes % 5.7 %; Mean Corpuscular Hemoglobin 27.5 pg (28.0-33.3); Mean Corpuscular Volume 86.1 fL (83.0-100.0); Mean Platelet Volume 9.6 fL (9.4-12.4); Neutrophils # 12.5 K/mcL (1.6-8.9); Platelet Count 191 K/mcL (140-400); Red Blood Count 3.45 M/mcL (3.82-4.97); Red Cell Distribution Width 15.9 % (11.5-14.5); Segmented Neutrophils % 85.9 %
[2017-11-08 04:04] LABS: Magnesium 1.8 mg/dL (1.6-2.6); Phosphorous 4.7 mg/dL (2.7-4.5); Potassium 3.4 mEq/L (3.5-5.1)
[2017-11-08 04:40] LABS: ABG Base Excess 0 mEq/L (-2 to 3); ABG HCO3 27 mEq/L (21-27); ABG Oxygen Saturation 94 % (95-98); ABG PCO2 51 mmHg (35-45); ABG PH 7.32 pH Units (7.32-7.45); ABG PO2 77 mmHg (85-104); ABG TCO2 28 mEq/L (20-26); Blood Gas Modality ASSIST CONTROL; Blood Gas PEEP 8 cm H2O; Blood Gas Respiration Rate 16; Blood Gas VT 360 cc
[2017-11-08] MEDS: Insulin LISPRO 300 UNITS/3 ML VIAL SQ SCH ×5 (05:21→19:33)
[2017-11-08] MEDS: Artificial Tears SOLN 15 ML BOTTLE BOTH EYES SCH ×6 (05:22→18:56)
[2017-11-08] MEDS: *HR* Heparin 5,000 UNIT/ML VIAL SQ SCH ×3 (05:23→21:00)
[2017-11-08] MEDS: NIFEdipine 10 MG CAPSULE PO SCH ×4 (05:23→19:53)
[2017-11-08] MEDS: Pantoprazole 40 MG VIAL IVP SCH (05:24)
--- NOTE | 2017-11-08 06:19 | Pulmonology Progress Note ---
<Toi Smith Levi - Last Filed: 11/08/17 09:29> Date of Encounter: 11/08/17 Time of Encounter: 07:05 Assessment and Plan (1) Acute on chronic respiratory failure with hypoxia and hypercapnia Current Visit: Yes Status: Acute Acute respiratory distress at arrival to ED. Hypoxic with O2 sat 65%, resp acidosis on ABG, pH 7.16, PaCO2 83 in ED. Likely 2/2 cardiogenic pulm edema Intubated and sedated currently. Repeat ABG today pH 7.32, pCO2 51, pO2 77. Will add lasix today. Will SBT today and extubate to BiPAP if tolerates well. (2) Heart failure, diastolic, with acute decompensation Current Visit: Yes Status: Acute Acute decompensation likely 2/2 hypertensive emergency Acutely SOB on arrival, orthopnea, diffuse crackles, pulm edema and bilateral pleural effusions on imaging. BNP 999 Previous ECHO 10/02/17 EF 60-65% Received single 40mg lasix on admission. Held yesterday but will restart lasix today as BP more stable. (3) Hypertensive emergency Current Visit: Yes Status: Acute Hypertensive overnight with systolics in 230's. No acute process on CT head. Nicardipine infusion started at admission. Pressures more stable with nicardipine. Weaning nicardipine yesterday when home antihypertensives restarted. BP still not ideal with nicardipine still infusing. Will increase ccb, add spironolactone and again try to wean off nicardipine infusion. Continue to monitor. (4) Encephalopathy acute Current Visit: Yes Status: Acute Likely 2/2 hypertensive emergency with superimposing hypercarbic resp failure. CT head without acute process. Possible pneumonia on imaging. Possible aspiration in setting of encephalopathy. Will wean sedation as tolerated while intubated with goal correa 3. Will asses as sedation is weaned. (5) Pneumonia Current Visit: Yes Status: Acute Aspiration in setting of encephalopathy vs HAP with recent hospitalization Started on empiric abx vancomycin, zosyn, and levaquin Sputum culture pending 1/2 blood culture pos gram pos cocci Pos for enterococcus via PCR WBC 14.5, afebrile MRSA and legionella antigen. Vanc and levofloxacin topped yesterday. Continue pip/kolton for anaerobic coverage with aspiration origin concern. Qualifiers: Pneumonia type: due to unspecified organism Laterality: unspecified laterality Lung location: unspecified part of lung Qualified Code(s): J18.9 - Pneumonia, unspecified organism (6) CKD (chronic kidney disease) stage 4, GFR 15-29 ml/min Current Visit: Yes Status: Chronic Cr 2.9, gfr 16. Appears to be within her baseline when looking at past admissions. Will renally dose meds as indicated. (7) Diabetes mellitus Current Visit: Yes Status: Chronic Hx type 2 dm. 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 Resp failure more likely 2/2 acute decompensated heart failure over copd exacerbation. On vent now. Stopped IV steroids. Continue pip/kolton Wean vent as tolerated. (9) DVT prophylaxis Current Visit: No Status: Acute Chemical prophylaxis. Subjective Principal diagnosis: Acute resp failure Interval history: No acute events overnight. Continues to require nicardipine infusion in spite of restarting home antihypertensives. She is arousable with less sedation. Objective PUL Vital signs: Last Vital Signs Temp 98.0 F 11/08/17 04:21 Pulse 93 11/08/17 06:00 Resp 23 11/08/17 06:00 BP 151/54 11/08/17 06:00 Pulse Ox 92 11/08/17 06:00 General appearance: no acute distress, asleep (easily arousable to voice. ), other (intubated and sedated) Eyes: nonicteric ENT: oropharynx dry Effort: other (on vent) Auscultation: bilateral: clear Cardiovascular: regular rate and rhythm Gastrointestinal: normoactive bowel sounds, soft, non-tender Extremities: no cyanosis, edema (1+) other (intubated and sedated) Ventilator Settings Ventilator Settings: Ventilator Settings, Last 8 Hours Ventilator Tidal Volume 360 Setting Ventilator Tidal Volume 360 Setting Ventilator Tidal Volume 360 Setting Ventilator Tidal Volume 360 Setting Ventilator Tidal Volume 360 Setting Ventilator Tidal Volume 360 Setting Ventilator Tidal Volume 360 Setting Ventilator Tidal Volume 360 Setting Ventilator Tidal Volume 360 Setting Ventilator Tidal Volume 360 Setting Ventilator Tidal Volume 360 Setting Ventilator Tidal Volume 360 Setting Ventilator Respiratory Rate 16 Setting Ventilator Respiratory Rate 16 Setting Ventilator Respiratory Rate 16 Setting Ventilator Respiratory Rate 16 Setting Ventilator Respiratory Rate 16 Setting Ventilator Respiratory Rate 16 Setting Ventilator Respiratory Rate 16 Setting Ventilator Respiratory Rate 16 Setting Ventilator Respiratory Rate 16 Setting Ventilator Respiratory Rate 16 Setting Ventilator Respiratory Rate 16 Setting Ventilator Respiratory Rate 16 Setting Actual Respiratory Rate 23 Actual Respiratory Rate 23 Actual Respiratory Rate 23 Actual Respiratory Rate 20 Actual Respiratory Rate 25 Actual Respiratory Rate 16 Actual Respiratory Rate 21 Actual Respiratory Rate 19 Actual Respiratory Rate 19 Actual Respiratory Rate 19 Actual Respiratory Rate 17 Positive End Expiratory 8 Pressure Positive End Expiratory 8 Pressure Positive End Expiratory 8 Pressure Positive End Expiratory 8 Pressure Positive End Expiratory 8 Pressure Positive End Expiratory 8 Pressure Positive End Expiratory 8 Pressure Positive End Expiratory 8 Pressure Positive End Expiratory 8 Pressure Positive End Expiratory 8 Pressure Positive End Expiratory 8 Pressure Positive End Expiratory 8 Pressure Peak Inspiratory Airway 11 Pressure Peak Inspiratory Airway 11 Pressure Peak Inspiratory Airway 16 Pressure Peak Inspiratory Airway 21 Pressure Peak Inspiratory Airway 16 Pressure Peak Inspiratory Airway 7.9 Pressure Peak Inspiratory Airway 16 Pressure Peak Inspiratory Airway 21 Pressure Peak Inspiratory Airway 21 Pressure Peak Inspiratory Airway 22 Pressure Peak Inspiratory Airway 17 Pressure Results - Laboratory Findings CBC and BMP: 11/08/17 03:30 11/08/17 03:30 ABG ABG pH 7.32 pH Units (7.32-7.45) 11/08/17 04:34 ABG pCO2 51 mmHg (35-45) H 11/08/17 04:34 ABG pO2 77 mmHg (85-104) L 11/08/17 04:34 ABG O2 Saturation 94 % (95-98) L 11/08/17 04:34 PT/INR, D-dimer PT 13.3 Seconds (9.4-12.1) H 11/07/17 00:10 Abnormal lab findings: Abnormal lab results WBC 14.5 K/mcL (4.3-11.1) H 11/08/17 03:30 RBC 3.45 M/mcL (3.82-4.97) L 11/08/17 03:30 Hgb 9.5 g/dL (11.5-15.4) L D 11/08/17 03:30 Hct 29.7 % (35.3-44.9) L 11/08/17 03:30 MCH 27.5 pg (28.0-33.3) L 11/08/17 03:30 RDW 15.9 % (11.5-14.5) H 11/08/17 03:30 Neutrophils # 12.5 K/mcL (1.6-8.9) H 11/08/17 03:30 PT 13.3 Seconds (9.4-12.1) H 11/07/17 00:10 ABG pCO2 51 mmHg (35-45) H 11/08/17 04:34 ABG pO2 77 mmHg (85-104) L 11/08/17 04:34 ABG Total CO2 28 mEq/L (20-26) H 11/08/17 04:34 ABG O2 Saturation 94 % (95-98) L 11/08/17 04:34 Potassium 3.4 mEq/L (3.5-5.1) L 11/08/17 03:30 BUN 32 mg/dL (8-23) H 11/08/17 03:30 Creatinine 2.90 mg/dL (0.60-1.20) H 11/08/17 03:30 Est GFR ( Amer) 20 (> 60) L 11/08/17 03:30 Est GFR (Non-Af Amer) 16 (> 60) L 11/08/17 03:30 Glucose 142 mg/dL (70-105) H 11/08/17 03:30 POC Glucose 152 mg/dL (70-99) H 11/07/17 23:29 Phosphorus 4.7 mg/dL (2.7-4.5) H 11/08/17 03:30 B-Natriuretic Peptide 999 pg/mL (Less than 100) H 11/07/17 00:46 Serum Total Protein 6.1 g/dL (6.4-8.9) L 11/07/17 05:45 Albumin 3.3 g/dL (3.5-5.7) L 11/07/17 05:45 PTH Intact 175.6 pg/ml (10.0-65.0) H 11/07/17 05:45 Urine Protein >=300 mg/dL (Neg-Trace) H 11/07/17 06:15 Urine Glucose (UA) 250 mg/dL (Normal) H 11/07/17 06:15 Urine Microscopic RBC 5-15 per hpf (0-3) H 11/07/17 06:15 Urine Microscopic WBC 15-30 per hpf (0-3) H 11/07/17 06:15 Ur Squamous Epith Cells Moderate per lpf (None-Few) H 11/07/17 06:15 Enterococcus sp PCR DETECTED (Not Detect) A 11/07/17 00:46 - Microbiology Findings Microbiology Findings: Microbiology, Last 48 Hours 11/07/17 06:00 Sputum Culture - Preliminary Aspirate - Clinical Findings Intake & Output: Intake & Output 11/07/17 11/07/17 11/08/17 15:59 23:59 07:59 Intake Total 600 / 600 800 / 800 600 / 600 Output Total 400 / 400 700 / 700 100 / 100 Balance 200 / 200 100 / 100 500 / 500 Weight 130 kg Consult Discharge Plan - Plan Referrals: Jay Valenzuela DO [Primary Care Provider] - <Yuriy Aquino - Last Filed: 11/08/17 10:28> Date of Encounter: 11/08/17 Objective PUL Vital signs: Last Vital Signs Temp 97.5 F L 11/08/17 07:47 Pulse 84 11/08/17 10:00 Resp 14 11/08/17 10:00 BP 149/55 11/08/17 10:00 Pulse Ox 93 11/08/17 10:00 Ventilator Settings Ventilator Settings: Ventilator Settings, Last 8 Hours Ventilator Tidal Volume 360 Setting Ventilator Tidal Volume 360 Setting Ventilator Tidal Volume 360 Setting Ventilator Tidal Volume 360 Setting Ventilator Tidal Volume 360 Setting Ventilator Tidal Volume 360 Setting Ventilator Tidal Volume 360 Setting Ventilator Tidal Volume 360 Setting Ventilator Tidal Volume 360 Setting Ventilator Tidal Volume 360 Setting Ventilator Respiratory Rate 16 Setting Ventilator Respiratory Rate 16 Setting Ventilator Respiratory Rate 16 Setting Ventilator Respiratory Rate 16 Setting Ventilator Respiratory Rate 16 Setting Ventilator Respiratory Rate 16 Setting Ventilator Respiratory Rate 16 Setting Ventilator Respiratory Rate 16 Setting Ventilator Respiratory Rate 16 Setting Ventilator Respiratory Rate 16 Setting Actual Respiratory Rate 20 Actual Respiratory Rate 18 Actual Respiratory Rate 18 Actual Respiratory Rate 23 Actual Respiratory Rate 23 Actual Respiratory Rate 23 Actual Respiratory Rate 20 Actual Respiratory Rate 25 Actual Respiratory Rate 16 Positive End Expiratory 8 Pressure Positive End Expiratory 8 Pressure Positive End Expiratory 8 Pressure Positive End Expiratory 8 Pressure Positive End Expiratory 8 Pressure Positive End Expiratory 8 Pressure Positive End Expiratory 8 Pressure Positive End Expiratory 8 Pressure Positive End Expiratory 8 Pressure Positive End Expiratory 8 Pressure Peak Inspiratory Airway 32 Pressure Peak Inspiratory Airway 32 Pressure Peak Inspiratory Airway 27 Pressure Peak Inspiratory Airway 11 Pressure Peak Inspiratory Airway 11 Pressure Peak Inspiratory Airway 16 Pressure Peak Inspiratory Airway 21 Pressure Peak Inspiratory Airway 16 Pressure Peak Inspiratory Airway 7.9 Pressure Results - Laboratory Findings CBC and BMP: 11/08/17 03:30 11/08/17 03:30 ABG ABG pH 7.32 pH Units (7.32-7.45) 11/08/17 04:34 ABG pCO2 51 mmHg (35-45) H 11/08/17 04:34 ABG pO2 77 mmHg (85-104) L 11/08/17 04:34 ABG O2 Saturation 94 % (95-98) L 11/08/17 04:34 PT/INR, D-dimer PT 13.3 Seconds (9.4-12.1) H 11/07/17 00:10 Abnormal lab findings: Abnormal lab results WBC 14.5 K/mcL (4.3-11.1) H 11/08/17 03:30 RBC 3.45 M/mcL (3.82-4.97) L 11/08/17 03:30 Hgb 9.5 g/dL (11.5-15.4) L D 11/08/17 03:30 Hct 29.7 % (35.3-44.9) L 11/08/17 03:30 MCH 27.5 pg (28.0-33.3) L 11/08/17 03:30 RDW 15.9 % (11.5-14.5) H 11/08/17 03:30 Neutrophils # 12.5 K/mcL (1.6-8.9) H 11/08/17 03:30 PT 13.3 Seconds (9.4-12.1) H 11/07/17 00:10 ABG pCO2 51 mmHg (35-45) H 11/08/17 04:34 ABG pO2 77 mmHg (85-104) L 11/08/17 04:34 ABG Total CO2 28 mEq/L (20-26) H 11/08/17 04:34 ABG O2 Saturation 94 % (95-98) L 11/08/17 04:34 Potassium 3.4 mEq/L (3.5-5.1) L 11/08/17 03:30 BUN 32 mg/dL (8-23) H 11/08/17 03:30 Creatinine 2.90 mg/dL (0.60-1.20) H 11/08/17 03:30 Est GFR ( Amer) 20 (> 60) L 11/08/17 03:30 Est GFR (Non-Af Amer) 16 (> 60) L 11/08/17 03:30 Glucose 142 mg/dL (70-105) H 11/08/17 03:30 POC Glucose 152 mg/dL (70-99) H 11/07/17 23:29 Phosphorus 4.7 mg/dL (2.7-4.5) H 11/08/17 03:30 B-Natriuretic Peptide 999 pg/mL (Less than 100) H 11/07/17 00:46 Serum Total Protein 6.1 g/dL (6.4-8.9) L 11/07/17 05:45 Albumin 3.3 g/dL (3.5-5.7) L 11/07/17 05:45 PTH Intact 175.6 pg/ml (10.0-65.0) H 11/07/17 05:45 Urine Protein >=300 mg/dL (Neg-Trace) H 11/07/17 06:15 Urine Glucose (UA) 250 mg/dL (Normal) H 11/07/17 06:15 Urine Microscopic RBC 5-15 per hpf (0-3) H 11/07/17 06:15 Urine Microscopic WBC 15-30 per hpf (0-3) H 11/07/17 06:15 Ur Squamous Epith Cells Moderate per lpf (None-Few) H 11/07/17 06:15 Enterococcus sp PCR DETECTED (Not Detect) A 11/07/17 00:46 - Microbiology Findings Microbiology Findings: Microbiology, Last 48 Hours 11/07/17 06:00 Sputum Culture - Preliminary Aspirate - Clinical Findings Intake & Output: Intake & Output 11/07/17 11/08/17 11/08/17 23:59 07:59 15:59 Intake Total 800 / 800 800 / 800 184 / 184 Output Total 700 / 700 200 / 200 Balance 100 / 100 600 / 600 184 / 184 Weight 130 kg - Attending Attestation I examined this patient and my medical decision-making was reviewed with the Resident Physician. I agree with the documented findings, disposition and treatment plan as described except to the extent set forth below. We independently had [id number] contact with the patient Patient seen and examined at bedside Labs, radiology, chart personally reviewed. Management was reviewed during multidisciplinary critical care rounds. COMMISSIONING AGENT: Patient awake able to follow commands off sedation today no focal deficits Pulm: Acute on chronic hypoxic respiratory failure secondary to hydrostatic pulmonary edema patient did well and spontaneous breathing trial today and plan for liberation to BiPAP Cards: Hypertensive emergency likely precipitating acutely decompensated heart failure we are optimizing her blood pressure control with oral agents and weaning off nicardipine drip start Lasix today GI: GI prophylaxis given Nutrition: By mouth for now Renal: Acute on chronic kidney injury start Lasix as I suspect a large component of vascular congestion UOP Monitored, Cont to Trend sCr and monitor Electrolytes. ID: Enterococcus bacteremia in 1 of 2 samples unclear if this is a actual pathogen or not but she is being treated with broad-spectrum antimicrobials with planned to de-escalate Heme/Onc: DVT prophylaxis given Endo: Glucose Monitored Integ/MSK: Skin Care per routine ICU Nursing Protocol to prevent ulcers. Lines: All lines examined without evidence of infection : Dispo: Remain in ICU CODE: Full I updated her daughter at bedside
[2017-11-08] MEDS ORDERED: Furosemide 40 MG/4 ML VIAL IVP ONE (07:04)
[2017-11-08] MEDS: Piperacillin/Tazobactam 3.375 GM in 0.9 % Sodium Chloride Mini Bag 100 ML IVPB SCH ×3 (07:39→23:00)
[2017-11-08] MEDS: Chlorhexidine Rinse 15 ML MOUTHWASH MM SCH ×2 (07:40→18:57)
[2017-11-08] MEDS: hydrALAZINE 25 MG TABLET PO SCH ×3 (07:40→19:53)
[2017-11-08] MEDS: Metoprolol 100 MG TABLET PO SCH ×2 (07:41→19:53)
[2017-11-08] MEDS: Budesonide/Formoterol 160/4.5 1 PUFF INH IH SCH ×2 (07:43→19:36)
[2017-11-08] MEDS: FentaNYL (PF) 1,000 MCG in 0.9 % Sodium Chloride 80 ML IVC SCH ×2 (09:21→20:11)
[2017-11-08 09:48] LABS: Estimated Average Glucose 111 mg/dl; Hemoglobin A1C 5.5 %
[2017-11-08] MEDS: Spironolactone 25 MG TABLET PO SCH (11:08)
[2017-11-08 14:27] LABS: Calcium 9.1 mg/dL (8.6-10.3); Potassium 3.8 mEq/L (3.5-5.1)
[2017-11-09] MEDS: Insulin LISPRO 300 UNITS/3 ML VIAL SQ SCH ×7 (00:02→23:47)
[2017-11-09 03:15] LABS: Basophils # 0.1 K/mcL (0.0-0.2); Basophils % 0.5 %; Eosinophils # 0.2 K/mcL (0.0-0.6); Eosinophils % 1.5 %; Hematocrit 31.5 % (35.3-44.9); Hemoglobin 9.9 g/dL (11.5-15.4); Immature Granulocytes % 1.1 % (0-4); Lymphocytes # 0.9 K/mcL (0.6-4.6); Lymphocytes % 6.2 %; Mean Corpuscular HGB Conc 31.4 g/dL (31.6-35.5); Mean Corpuscular Volume 86.1 fL (83.0-100.0); Mean Platelet Volume 9.3 fL (9.4-12.4); Monocytes # 1.1 K/mcL (0.0-1.3); Neutrophils # 12.6 K/mcL (1.6-8.9); Platelet Count 185 K/mcL (140-400); Red Blood Count 3.66 M/mcL (3.82-4.97); Segmented Neutrophils % 83.7 %
[2017-11-09 03:33] LABS: Magnesium 1.8 mg/dL (1.6-2.6); Phosphorous 4.8 mg/dL (2.7-4.5); Potassium 3.8 mEq/L (3.5-5.1)
[2017-11-09] MEDS: Ipratropium/Albuterol Neb 3 ML IH SCH ×6 (04:46→23:46)
[2017-11-09] MEDS: Pantoprazole 40 MG VIAL IVP SCH (05:00)
[2017-11-09] MEDS: *HR* Heparin 5,000 UNIT/ML VIAL SQ SCH ×3 (05:00→21:01)
[2017-11-09] MEDS ORDERED: Levofloxacin 750 MG/150 ML 750 MG/150 ML BAG IVPB SCH (06:00)
[2017-11-09] MEDS: Budesonide/Formoterol 160/4.5 1 PUFF INH IH SCH ×2 (07:57→20:06)
--- NOTE | 2017-11-09 07:58 | Pulmonology Progress Note ---
<NannetteLara M - Last Filed: 11/09/17 10:26> Date of Encounter: 11/09/17 Objective PUL Vital signs: Last Vital Signs Temp 98.5 F 11/09/17 04:26 Pulse 83 11/09/17 08:00 Resp 20 11/09/17 08:00 BP 176/76 11/09/17 08:00 Pulse Ox 95 11/09/17 08:00 Results - Laboratory Findings CBC and BMP: 11/09/17 03:05 11/09/17 03:05 ABG ABG pH 7.32 pH Units (7.32-7.45) 11/08/17 04:34 ABG pCO2 51 mmHg (35-45) H 11/08/17 04:34 ABG pO2 77 mmHg (85-104) L 11/08/17 04:34 ABG O2 Saturation 94 % (95-98) L 11/08/17 04:34 PT/INR, D-dimer PT 13.3 Seconds (9.4-12.1) H 11/07/17 00:10 Abnormal lab findings: Abnormal lab results WBC 15.1 K/mcL (4.3-11.1) H 11/09/17 03:05 RBC 3.66 M/mcL (3.82-4.97) L 11/09/17 03:05 Hgb 9.9 g/dL (11.5-15.4) L 11/09/17 03:05 Hct 31.5 % (35.3-44.9) L 11/09/17 03:05 MCH 27.0 pg (28.0-33.3) L 11/09/17 03:05 MCHC 31.4 g/dL (31.6-35.5) L 11/09/17 03:05 RDW 16.0 % (11.5-14.5) H 11/09/17 03:05 MPV 9.3 fL (9.4-12.4) L 11/09/17 03:05 Neutrophils # 12.6 K/mcL (1.6-8.9) H 11/09/17 03:05 PT 13.3 Seconds (9.4-12.1) H 11/07/17 00:10 ABG pCO2 51 mmHg (35-45) H 11/08/17 04:34 ABG pO2 77 mmHg (85-104) L 11/08/17 04:34 ABG Total CO2 28 mEq/L (20-26) H 11/08/17 04:34 ABG O2 Saturation 94 % (95-98) L 11/08/17 04:34 Sodium 134 mEq/L (136-145) L 11/09/17 03:05 BUN 36 mg/dL (8-23) H 11/09/17 03:05 Creatinine 3.23 mg/dL (0.60-1.20) H 11/09/17 03:05 Est GFR ( Amer) 17 (> 60) L 11/09/17 03:05 Est GFR (Non-Af Amer) 14 (> 60) L 11/09/17 03:05 Glucose 121 mg/dL (70-105) H 11/09/17 03:05 POC Glucose 116 mg/dL (70-99) H 11/08/17 23:40 Phosphorus 4.8 mg/dL (2.7-4.5) H 11/09/17 03:05 B-Natriuretic Peptide 999 pg/mL (Less than 100) H 11/07/17 00:46 Serum Total Protein 6.1 g/dL (6.4-8.9) L 11/07/17 05:45 Albumin 3.3 g/dL (3.5-5.7) L 11/07/17 05:45 PTH Intact 175.6 pg/ml (10.0-65.0) H 11/07/17 05:45 Urine Protein >=300 mg/dL (Neg-Trace) H 11/07/17 06:15 Urine Glucose (UA) 250 mg/dL (Normal) H 11/07/17 06:15 Urine Microscopic RBC 5-15 per hpf (0-3) H 11/07/17 06:15 Urine Microscopic WBC 15-30 per hpf (0-3) H 11/07/17 06:15 Ur Squamous Epith Cells Moderate per lpf (None-Few) H 11/07/17 06:15 Enterococcus sp PCR DETECTED (Not Detect) A 11/07/17 00:46 - Microbiology Findings Microbiology Findings: Microbiology, Last 48 Hours 11/07/17 06:00 Sputum Culture - Final Aspirate - Clinical Findings Intake & Output: Intake & Output 0911/09/17 11/09/17 23:59 07:59 15:59 Intake Total 452 / 452 200 / 200 Output Total 175 / 175 325 / 325 Balance 277 / 277 -125 / -125 Weight 132.5 kg Consult Discharge Plan - Plan Referrals: Jay Valenzuela DO [Primary Care Provider] - - Attending Attestation I examined this patient and my medical decision-making was reviewed with the Resident Physician. I agree with the documented findings, disposition and treatment plan as described except to the extent set forth below. Patient seen and examined. Labs, radiology, chart personally reviewed. 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 Continue bronchodilators Cardiovascular: Hypertension is being treated with Cardene drip and goal would be to transition her to oral antihypertensive medication to get her off the drip and prepare to transfer patient. GI: Nutrition per dietary and GI prophylaxis per routine Heme: DVT prophylaxis per routine ID: Continue antibiotics and plan to de-escalation. Renal; urine out put and renal funtion reviewed Endorcine: blood glucose is monitored Lines: all lines checked and no evidence of infections Skin: skin care to prevent pressure ulcers per nursing routine care <Olegario Ames - Last Filed: 11/09/17 13:13> Date of Encounter: 11/09/17 Time of Encounter: 07:55 Assessment and Plan (1) Acute on chronic respiratory failure with hypoxia and hypercapnia Current Visit: Yes Status: Acute Acute respiratory failure upon arrival to ED likely 2/2 decompensated heart failure Patient on oxygen mask 5L saturating at 95% ABG shows resp acidosis with pH 7.32, pCO2 51, PO2 77, HCO3 27 Duonebs BID Started lasix PO 60 mg AM and 40 mg PM (2) Heart failure, diastolic, with acute decompensation Current Visit: Yes Status: Acute Acute decompensation likely 2/2 hypertensive urgency Started on home dose of PO lasix (11/09) - 60 mg AM and 40 mg PM BNP - 999 CXR shows cardiomegaly and BL pleural effusions Previous echo 10/03 showed EF 60-65% (3) COPD exacerbation Current Visit: Yes Status: Acute Hx of COPD on 2L home O2 Weaned off vent On 5L oxygen mask now Resp failure more likely 2/2 decompensated heart failure over COPD exacerbation (4) Hypertensive urgency Current Visit: Yes Status: Acute Discontinued IV nicardipine and spironolactone Increased PO nifedipine (ER) to home dose of 90 mg daily BP came down to 140s/60s, but is now 174/72 Patient currently on PO hydralazine 100 mg TID and PO metoprolol 100 mg BID Will continue to monitor (5) Pneumonia Current Visit: Yes Status: Acute Possibly aspiration in setting of encephalopathy vs HAP with recent hospitalization Started IV unasyn 3g BID Discontinued vancomycin and zosyn Blood culture shows gram (+) cocci Urine culture shows legionella antigen Repeat blood culture x2 (11/09) WBC 14.5 > 15.1 today, afebrile Qualifiers: Pneumonia type: due to unspecified organism Laterality: unspecified laterality Lung location: unspecified part of lung Qualified Code(s): J18.9 - Pneumonia, unspecified organism (6) CKD (chronic kidney disease) stage 4, GFR 15-29 ml/min Current Visit: Yes Status: Chronic Upward trending Cr 3.07 > 3.23 Started home dose of lasix (11/09) - 60mg AM and 40 mg PM orally Nephrology on consult, will follow recommendations (7) Encephalopathy acute Current Visit: Yes Status: Resolved Encephalopathy has resolved (8) Diabetes mellitus Current Visit: Yes Status: Chronic Med dose SSI Continue accuchecks Glucose 121 today Qualifiers: Diabetes mellitus type: type 2 Diabetes mellitus terminal carman insulin use: with snf use Diabetes mellitus complication status: with kidney complications Diabetes mellitus complication detail: with chronic kidney disease Chronic kidney disease stage: stage 4 (severe) Qualified Code(s): E11.22 - Type 2 diabetes mellitus with diabetic chronic kidney disease; N18.4 - Chronic kidney disease, stage 4 (severe); Z79.4 - buttermaker (current) use of insulin (9) DVT prophylaxis Current Visit: No Status: Acute Subcutaneous heparin Subjective Principal diagnosis: Acute respiratory failure Interval history: 67 female with PMHx of COPD on home O2, CKD stage 4, CHF, DM2, HTN presents to ICU with acute respiratory failure and HTN urgency. Patient was given given trial off of BIPAP twice overnight and put on 5L NC, but did not tolerate. Today patient is doing well with no complaints. She denies SOB, CP, chills, abdominal pain. She has been weaned off BIPAP and is currently on 5L oxygen mask. Objective PUL Vital signs: Last Vital Signs Temp 98.5 F 11/09/17 04:26 Pulse 79 11/09/17 07:00 Resp 18 11/09/17 07:00 BP 177/73 11/09/17 07:00 Pulse Ox 93 11/09/17 07:00 General appearance: no acute distress, lethargic Effort: normal Auscultation: bilateral: diminished breath sounds, wheezes Cardiovascular: regular rate and rhythm Gastrointestinal: soft, non-tender, non-distended Extremities: no cyanosis (+1 pitting edema in lower extremities bilaterally to 2 /3 up leg), edema normal mental status mood appropriate, affect normal Results - Laboratory Findings CBC and BMP: 11/09/17 03:05 11/09/17 03:05 ABG ABG pH 7.32 pH Units (7.32-7.45) 11/08/17 04:34 ABG pCO2 51 mmHg (35-45) H 11/08/17 04:34 ABG pO2 77 mmHg (85-104) L 11/08/17 04:34 ABG O2 Saturation 94 % (95-98) L 11/08/17 04:34 PT/INR, D-dimer PT 13.3 Seconds (9.4-12.1) H 11/07/17 00:10 Abnormal lab findings: Abnormal lab results WBC 15.1 K/mcL (4.3-11.1) H 11/09/17 03:05 RBC 3.66 M/mcL (3.82-4.97) L 11/09/17 03:05 Hgb 9.9 g/dL (11.5-15.4) L 11/09/17 03:05 Hct 31.5 % (35.3-44.9) L 11/09/17 03:05 MCH 27.0 pg (28.0-33.3) L 11/09/17 03:05 MCHC 31.4 g/dL (31.6-35.5) L 11/09/17 03:05 RDW 16.0 % (11.5-14.5) H 11/09/17 03:05 MPV 9.3 fL (9.4-12.4) L 11/09/17 03:05 Neutrophils # 12.6 K/mcL (1.6-8.9) H 11/09/17 03:05 PT 13.3 Seconds (9.4-12.1) H 11/07/17 00:10 ABG pCO2 51 mmHg (35-45) H 11/08/17 04:34 ABG pO2 77 mmHg (85-104) L 11/08/17 04:34 ABG Total CO2 28 mEq/L (20-26) H 11/08/17 04:34 ABG O2 Saturation 94 % (95-98) L 11/08/17 04:34 Sodium 134 mEq/L (136-145) L 11/09/17 03:05 BUN 36 mg/dL (8-23) H 11/09/17 03:05 Creatinine 3.23 mg/dL (0.60-1.20) H 11/09/17 03:05 Est GFR ( Amer) 17 (> 60) L 11/09/17 03:05 Est GFR (Non-Af Amer) 14 (> 60) L 11/09/17 03:05 Glucose 121 mg/dL (70-105) H 11/09/17 03:05 POC Glucose 116 mg/dL (70-99) H 11/08/17 23:40 Phosphorus 4.8 mg/dL (2.7-4.5) H 11/09/17 03:05 B-Natriuretic Peptide 999 pg/mL (Less than 100) H 11/07/17 00:46 Serum Total Protein 6.1 g/dL (6.4-8.9) L 11/07/17 05:45 Albumin 3.3 g/dL (3.5-5.7) L 11/07/17 05:45 PTH Intact 175.6 pg/ml (10.0-65.0) H 11/07/17 05:45 Urine Protein >=300 mg/dL (Neg-Trace) H 11/07/17 06:15 Urine Glucose (UA) 250 mg/dL (Normal) H 11/07/17 06:15 Urine Microscopic RBC 5-15 per hpf (0-3) H 11/07/17 06:15 Urine Microscopic WBC 15-30 per hpf (0-3) H 11/07/17 06:15 Ur Squamous Epith Cells Moderate per lpf (None-Few) H 11/07/17 06:15 Enterococcus sp PCR DETECTED (Not Detect) A 11/07/17 00:46 - Microbiology Findings Microbiology Findings: Microbiology, Last 48 Hours 11/07/17 06:00 Sputum Culture - Preliminary Aspirate - Diagnostic Findings Chest x-ray: report reviewed, image reviewed - Clinical Findings Intake & Output: Intake & Output 11/08/17 11/08/17 11/09/17 15:59 23:59 07:59 Intake Total 784 / 784 452 / 452 200 / 200 Output Total 400 / 400 175 / 175 325 / 325 Balance 384 / 384 277 / 277 -125 / -125 Weight 132.5 kg
[2017-11-09] MEDS: Chlorhexidine Rinse 15 ML MOUTHWASH MM SCH (08:01)
[2017-11-09] MEDS: hydrALAZINE 25 MG TABLET PO SCH ×3 (08:01→19:25)
[2017-11-09] MEDS: Spironolactone 25 MG TABLET PO SCH (08:01)
[2017-11-09] MEDS: NIFEdipine 10 MG CAPSULE PO SCH (08:01)
[2017-11-09] MEDS: Metoprolol 100 MG TABLET PO SCH ×2 (08:02→19:25)
[2017-11-09] MEDS: Artificial Tears SOLN 15 ML BOTTLE BOTH EYES SCH (08:02)
[2017-11-09] MEDS: Piperacillin/Tazobactam 3.375 GM in 0.9 % Sodium Chloride Mini Bag 100 ML IVPB SCH (08:02)
[2017-11-09] MEDS ORDERED: Aminoglycoside Consult 1 EACH MC ONE (08:17)
[2017-11-09] MEDS: NIFEdipine XL (24 HR) 30 MG TAB.ER.24 PO SCH (12:31)
[2017-11-09] MEDS ORDERED: Furosemide 40 MG/4 ML VIAL IVP ONE (14:00)
[2017-11-09] MEDS ORDERED: Albumin 25% 25gram/100mL 25 GM/100 ML IV.SOLN IVPB ONE (14:01)
--- NOTE | 2017-11-09 17:37 | Nephrology Consult Note ---
Date of Encounter: 11/09/17 Time of Encounter: 13:30 Assessment and Plan (1) TAMEKA (acute kidney injury) Current Visit: Yes Status: Acute Elevated SCr in the setting of fluid overload with CHF on diuretics, COPD, sepsis with vanco given Known nephrotic range proteinuria at last hospital stay, etiology unclear but likely DM Will initiate workup with urine studies Previous workup for nephrotic proteinuria; SOPHIA, ANCA and complements were negative Discussed goals of care and the possible need for STEEL LOADER if continued worsening. Pt agrees to STEEL LOADER if needed (2) CKD (chronic kidney disease) stage 4, GFR 15-29 ml/min Current Visit: Yes Status: Chronic PTH noted elevated, will repeat vitamin D previously very low, continue ergocalciferol (3) Acute exacerbation of CHF (congestive heart failure) Current Visit: No Status: Acute Strict I/Os Fluid restriction advised Qualifiers: Heart failure type: diastolic Qualified Code(s): I50.33 - Acute on chronic diastolic (congestive) heart failure (4) Acute and chronic respiratory failure with hypercapnia Current Visit: Yes Status: Acute Will dose with iv lasix 40mg x 1 now with albumin given continued SOB and resumed po lasix as planned this pm History of Present Illness - Reason for Consult Consult date: 11/09/17 Acute Kidney Injury, Chronic Kidney Disease - History of Present Illness 67 y o female known to me from previous hospital stay last month but follows with Dr Cote for CKD progressive at 4 recently with diastolic CHF and COPD oxygen dependent admitted with SOB and was treated for hypertensive urgency along with COPD and CHF. Renal consulted for management of her declining renal fxn with SCr at 3.23, GFR 14 from 2.84 on admission. Last discarge SCr noted at 2.61. Pt seen and examined complaining of worsening SOB despite biPAP. Diuretics resumed today orally per resident Past Med Surg Social Fam HX - Past Medical History Medical history: arthritis, CHF, COPD, diabetes, GERD, hyperlipidemia, hypertension, RA, renal disease Psychiatric history: anxiety, bipolar - Past Surgical History Surgical History: angioplasty/stent, appendectomy, , cataract Additional surgical history: 1 cardiac stent - Social History Smoking Status: Current every day smoker Packs per day: 1 Smokeless Tobacco Status: No Alcohol use: none Drug use: none - Family History Mother Living Status: Still Living Hx Family Cardiac Disorders: Yes Hx Family Respiratory Disorders: Yes (copd) Hx Family Cancer: Yes Hx Family Neurologic Disorders: Yes (alzheimer) Father Living Status: Cause of : [place] Hx Family Cardiac Disorders: Yes Hx Family Neurologic Disorders: Yes (Brain aneurysm) Brother Hx Family Endocrine Disorder: Yes (DM) Sister Living Status: Age at : 52 Cause of : Kidney disease Hx Family Endocrine Disorder: Yes (DM) Medications and Allergies ALPRAZolam [Xanax 1 MG Tablet] 1 mg PO BID 04/15/17 [History] Clopidogrel [Plavix] 75 mg PO DAILY 04/15/17 [History] DULoxetine [Cymbalta] 30 mg PO BID 04/15/17 [History] Famotidine [Heartburn Prevention] 20 mg PO BID 04/15/17 [History] Fenofibrate Nanocrystallized [Triglide] 160 mg PO DAILY 04/15/17 [History] Trazodone HCl 100 mg PO HS 04/15/17 [History] risperiDONE [Risperidone] 1 mg PO DAILY 04/15/17 [History] Metoprolol Tartrate [Lopressor] 50 mg PO BID 07/23/17 [History] Ranolazine [Ranexa] 500 mg PO BID 07/23/17 [History] Rosuvastatin [Crestor] 40 mg PO HS 07/23/17 [History] Albuterol Sulfate [Ventolin Hfa] 2 puff IH Q6H PRN 09/28/17 [History] Budesonide/Formoterol 160/4.5 [Symbicort 160/4.5] 2 puff IH BIDR 09/28/17 [ History] Furosemide [Lasix] 40 mg PO QPM 09/28/17 [History] HYDROcodone/Acet 5/325 mg [[place] 5-325 mg] 1 tab PO BID PRN 09/28/17 [History] Potassium Chloride [K-Tab ER] 20 meq PO BID 09/28/17 [History] Tiotropium [Spiriva] 1 puff IH DAILY 09/28/17 [History] Ergocalciferol (VITAMIN D2) [Drisdol (50,000 Unit)] 50,000 unit PO QWEEK #4 capsule 10/04/17 [Rx] Hydralazine HCl 100 mg PO TID #90 tablet 10/04/17 [Rx] NIFEdipine XL (24 HR) [Procardia XL] 90 mg PO DAILY 30 Days #45 tab.er.24 [Rx] Furosemide [Lasix] 60 mg PO QAM 11/07/17 [History] Insulin LISPRO [Humalog] 25 unit SQ TID 11/07/17 [History] 3 Allergy/AdvReac Type Severity Reaction Status Date / Time morphine Allergy Hallucinati Verified 09/27/17 17:49 ng Sulfa (Sulfonamide Allergy Rash Verified 09/27/17 17:49 Antibiotics) Exam - Vital Signs Vital signs: Initial Vital Signs Temp Pulse Resp BP Pulse Ox 97.4 F L 105 6 219/107 65 11/06/17 23:53 11/06/17 23:53 11/06/17 23:53 11/06/17 23:53 11/06/17 23:53 Vital Signs - Last 8 Hours Temp Pulse Resp BP Pulse Ox 11/09/17 16:49 17 150/60 93 11/09/17 16:00 71 17 150/60 93 11/09/17 15:00 98.3 F 72 16 165/67 90 11/09/17 14:00 69 18 148/60 93 11/09/17 13:00 70 16 175/78 89 11/09/17 12:00 70 18 174/72 93 11/09/17 11:20 16 165/69 93 11/09/17 11:00 72 18 174/73 93 11/09/17 10:00 70 16 165/69 93 Intake and Output 11/09/17 11/09/17 11/09/17 07:59 15:59 23:59 Intake Total 200 / 200 Output Total 325 / 325 550 / 550 Balance -125 / -125 -550 / -550 Intake: IV Fluids 100 / 100 Cardene Premix 40mg/200ml 40 mg 0 / 0 In 200 ml @ 5 MG/HR 25 mls/hr IVC .Q8H [facility] Rx#:[id number] Zosyn 3.375 GM In 0.9 % Sodium 100 / 100 Chloride (Mini-Bag +) 100 ML @ 25 mls/hr IVPB Q8HR [facility] Rx#: [id number] Oral 100 / 100 Output: Catheter 325 / 325 550 / 550 Other: Weight 132.5 kg Blood Glucose* 116 130 Patient Weight 11/09/17 23:59 Weight 132.5 kg - General Appearance General appearance: moderate distress, chronically ill EENT: ATNC, mucous membranes moist Neck: no JVD, supple Additional Comments: decreased BS bases bilat Cardiology: edema, normal S1, normal S2 Gastrointestinal: no tenderness, no guarding, obese Integumentary: warm and dry Neurologic: no focal deficit Musculoskeletal: no deformities Psychiatric: mood/affect appropriate Results - Lab Results 11/12/17 03:50 11/12/17 03:50 Most recent lab results ABG pH 7.32 pH Units (7.32-7.45) 11/08/17 04:34 ABG pCO2 51 mmHg (35-45) H 11/08/17 04:34 ABG pO2 77 mmHg (85-104) L 11/08/17 04:34 ABG HCO3 27 mEq/L (21-27) 11/08/17 04:34 ABG O2 Saturation 94 % (95-98) L 11/08/17 04:34 Calcium 9.0 mg/dL (8.6-10.3) 11/09/17 03:05 Phosphorus 4.8 mg/dL (2.7-4.5) H 11/09/17 03:05 Magnesium 1.8 mg/dL (1.6-2.6) 11/09/17 03:05 Consult Discharge Plan - Plan Referrals: Jay Valenzuela DO [Primary Care Provider] -
--- NOTE | 2017-11-09 17:44 | Electrocardiograph Report ---
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
[2017-11-09] MEDS ORDERED: Furosemide 40 MG TABLET PO SCH (18:00)
[2017-11-09] MEDS: Ampicillin/Sulbactam 3,000 MG in 0.9 % Sodium Chloride Mini Bag 100 ML IVPB SCH (19:22)
[2017-11-09] MEDS: ALPRAZolam 0.25 MG TABLET PO SCH (19:25)
[2017-11-09 20:25] LABS: Creatinine,Urine 86 mg/dL; Microalbumin,Urine > 1350 mg/L; Protein/Creatinine Ratio,Urine 4.59 mg/mg (0.00-0.20)
[2017-11-10] MEDS: *HR* Metoprolol 5 MG/5 ML VIAL IVP PRN ×2 (01:29→18:18)
[2017-11-10] MEDS: Ipratropium/Albuterol Neb 3 ML IH SCH ×6 (03:20→23:51)
[2017-11-10] MEDS: Insulin LISPRO 300 UNITS/3 ML VIAL SQ SCH ×6 (03:22→23:57)
[2017-11-10 03:29] LABS: Basophils # 0.1 K/mcL (0.0-0.2); Basophils % 0.5 %; Eosinophils # 0.2 K/mcL (0.0-0.6); Eosinophils % 1.2 %; Hemoglobin 9.4 g/dL (11.5-15.4); Immature Granulocytes % 1.5 % (0-4); Lymphocytes # 0.9 K/mcL (0.6-4.6); Lymphocytes % 6.7 %; Mean Corpuscular HGB Conc 31.3 g/dL (31.6-35.5); Mean Corpuscular Hemoglobin 26.4 pg (28.0-33.3); Mean Corpuscular Volume 84.3 fL (83.0-100.0); Mean Platelet Volume 9.3 fL (9.4-12.4); Monocytes % 6.9 %; Neutrophils # 11.6 K/mcL (1.6-8.9); Platelet Count 183 K/mcL (140-400); Red Blood Count 3.56 M/mcL (3.82-4.97); Red Cell Distribution Width 15.9 % (11.5-14.5); Segmented Neutrophils % 83.2 %
[2017-11-10 03:48] LABS: Calcium 9.3 mg/dL (8.6-10.3); Potassium 3.7 mEq/L (3.5-5.1)
[2017-11-10] MEDS: Pantoprazole 40 MG VIAL IVP SCH (05:07)
[2017-11-10] MEDS: *HR* Heparin 5,000 UNIT/ML VIAL SQ SCH ×3 (05:07→20:53)
--- NOTE | 2017-11-10 08:20 | Pulmonology Progress Note ---
<NannetteLara M - Last Filed: 11/10/17 10:12> Date of Encounter: 11/10/17 Objective PUL Vital signs: Last Vital Signs Temp 97.9 F 11/10/17 07:15 Pulse 69 11/10/17 09:00 Resp 14 11/10/17 09:00 BP 199/89 11/10/17 09:00 Pulse Ox 95 11/10/17 09:00 Results - Laboratory Findings CBC and BMP: 11/10/17 03:00 11/10/17 03:00 ABG ABG pH 7.32 pH Units (7.32-7.45) 11/08/17 04:34 ABG pCO2 51 mmHg (35-45) H 11/08/17 04:34 ABG pO2 77 mmHg (85-104) L 11/08/17 04:34 ABG O2 Saturation 94 % (95-98) L 11/08/17 04:34 PT/INR, D-dimer PT 13.3 Seconds (9.4-12.1) H 11/07/17 00:10 Abnormal lab findings: Abnormal lab results WBC 14.0 K/mcL (4.3-11.1) H 11/10/17 03:00 RBC 3.56 M/mcL (3.82-4.97) L 11/10/17 03:00 Hgb 9.4 g/dL (11.5-15.4) L 11/10/17 03:00 Hct 30.0 % (35.3-44.9) L 11/10/17 03:00 MCH 26.4 pg (28.0-33.3) L 11/10/17 03:00 MCHC 31.3 g/dL (31.6-35.5) L 11/10/17 03:00 RDW 15.9 % (11.5-14.5) H 11/10/17 03:00 MPV 9.3 fL (9.4-12.4) L 11/10/17 03:00 Neutrophils # 11.6 K/mcL (1.6-8.9) H 11/10/17 03:00 PT 13.3 Seconds (9.4-12.1) H 11/07/17 00:10 ABG pCO2 51 mmHg (35-45) H 11/08/17 04:34 ABG pO2 77 mmHg (85-104) L 11/08/17 04:34 ABG Total CO2 28 mEq/L (20-26) H 11/08/17 04:34 ABG O2 Saturation 94 % (95-98) L 11/08/17 04:34 Sodium 135 mEq/L (136-145) L 11/10/17 03:00 Carbon Dioxide 20 mEq/L (23-29) L 11/10/17 03:00 BUN 43 mg/dL (8-23) H 11/10/17 03:00 Creatinine 3.38 mg/dL (0.60-1.20) H 11/10/17 03:00 Est GFR ( Amer) 16 (> 60) L 11/10/17 03:00 Est GFR (Non-Af Amer) 14 (> 60) L 11/10/17 03:00 Glucose 121 mg/dL (70-105) H 11/10/17 03:00 POC Glucose 136 mg/dL (70-99) H 11/09/17 23:41 Phosphorus 4.8 mg/dL (2.7-4.5) H 11/09/17 03:05 B-Natriuretic Peptide 999 pg/mL (Less than 100) H 11/07/17 00:46 Serum Total Protein 6.1 g/dL (6.4-8.9) L 11/07/17 05:45 Albumin 3.3 g/dL (3.5-5.7) L 11/07/17 05:45 PTH Intact 175.6 pg/ml (10.0-65.0) H 11/07/17 05:45 Urine Protein >=300 mg/dL (Neg-Trace) H 11/07/17 06:15 Urine Glucose (UA) 250 mg/dL (Normal) H 11/07/17 06:15 Urine Microscopic RBC 5-15 per hpf (0-3) H 11/07/17 06:15 Urine Microscopic WBC 15-30 per hpf (0-3) H 11/07/17 06:15 Ur Squamous Epith Cells Moderate per lpf (None-Few) H 11/07/17 06:15 Protein/Creatinin Ratio 4.59 mg/mg (0.00-0.20) H 11/09/17 18:00 Urine Total Protein 395 mg/dL (1-14) H 11/09/17 18:00 Enterococcus sp PCR DETECTED (Not Detect) A 11/07/17 00:46 - Microbiology Findings Microbiology Findings: Microbiology, Last 48 Hours 11/07/17 06:00 Sputum Culture - Final Aspirate - Clinical Findings Intake & Output: Intake & Output 11/09/17 11/10/17 11/10/17 23:59 07:59 15:59 Intake Total 150 / 150 100 / 100 Output Total 200 / 200 700 / 700 Balance -50 / -50 -600 / -600 Weight 134.8 kg Consult Discharge Plan - Plan Referrals: Jay Valenzuela DO [Primary Care Provider] - - Attending Attestation I examined this patient and my medical decision-making was reviewed with the Resident Physician. I agree with the documented findings, disposition and treatment plan as described except to the extent set forth below. Patient seen and examined. Labs, radiology, chart personally reviewed. 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 Pulmonary: Acceptable oxygenation and ventilation and still needing NIV and diuresis hopefully will help. Cardiovascular: Still hypertensive and her medications resumed and diuresis. GI: Nutrition per dietary and GI prophylaxis per routine. ID: Continue antibiotics and plan to de-escalation. Renal; urine out put and renal funtion reviewed. Nephrology is following up and continue diuresis. Endorcine: blood glucose is monitored Lines: all lines checked and no evidence of infections Skin: skin care to prevent pressure ulcers per nursing routine care Patient will stay in ICU for close monitoring because of her breathing. Patient will need PT/OT. <Olegario Ames - Last Filed: 11/10/17 13:26> Date of Encounter: 11/10/17 Time of Encounter: 07:30 Assessment and Plan (1) Acute on chronic respiratory failure with hypoxia and hypercapnia Current Visit: Yes Status: Acute Acute respiratory failure upon arrival to ED likely 2/2 decompensated heart failure Patient extubated on 11/08 Patient on BIPAP FiO2 of 35%, saturating at 95% ABG from 11/09 shows resp acidosis with pH 7.32, pCO2 51, PO2 77, HCO3 27 Duonebs BID Given albumin with IV lasix Started on IV lasix 40 mg BID (2) Heart failure, diastolic, with acute decompensation Current Visit: Yes Status: Acute Acute decompensation likely 2/2 hypertensive urgency Given IV albumin followed by IV lasix Started on IV lasix 40 mg BID BNP - 999 CXR on 11/09 shows cardiomegaly and BL pleural effusions Previous echo on 10/03 showed EF 60-65%, mild LV hypertrophy, valves not assessed , no mention of pulm HTN (3) COPD exacerbation Current Visit: Yes Status: Acute Hx of COPD on 2L home O2 Weaned off vent On BIPAP at FiO2 35%, saturating at 96% Frequent trials off BIPAP, patient does not tolerate more than 30 minutes Resp failure more likely 2/2 decompensated heart failure over COPD exacerbation (4) Hypertensive urgency Current Visit: Yes Status: Acute Discontinued IV nicardipine and spironolactone Increased PO nifedipine (ER) to home dose of 90 mg daily BP came down to 140s/60s yesterday, but is now 194/71 Patient currently on PO hydralazine 100 mg TID and PO metoprolol 100 mg BID Started IV lasix 40 mg BID Will continue to monitor (5) Pneumonia Current Visit: Yes Status: Acute Possibly aspiration in setting of encephalopathy vs HAP with recent hospitalization Started IV unasyn 3g BID (day 2) Discontinued vancomycin and zosyn Blood culture shows gram (+) cocci Urine culture shows legionella antigen Repeat blood culture x2 (11/10) WBC 15.1 > 14 today, afebrile Qualifiers: Pneumonia type: due to unspecified organism Laterality: unspecified laterality Lung location: unspecified part of lung Qualified Code(s): J18.9 - Pneumonia, unspecified organism (6) CKD (chronic kidney disease) stage 4, GFR 15-29 ml/min Current Visit: Yes Status: Chronic Upward trending Cr 3.23 > 3.38 Given IV albumin followed by IV lasix Started on IV lasix 40 mg BID Nephrology on consult Ordered urine studies, patient has nephrotic range proteinuria May initiate dialysis pending lab results and clinical status, patient in agreement (7) Encephalopathy acute Current Visit: Yes Status: Resolved Encephalopathy has resolved (8) Diabetes mellitus Current Visit: Yes Status: Chronic Med dose SSI Continue accuchecks Glucose 121 today Qualifiers: Diabetes mellitus type: type 2 Diabetes mellitus skilled nursing insulin use: with longwall foreman use Diabetes mellitus complication status: with kidney complications Diabetes mellitus complication detail: with chronic kidney disease Chronic kidney disease stage: stage 4 (severe) Qualified Code(s): E11.22 - Type 2 diabetes mellitus with diabetic chronic kidney disease; N18.4 - Chronic kidney disease, stage 4 (severe); 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 Patient given trial off of BIPAP overnight a few times and put on NC, but she does not tolerate longer than 30 minutes. Patient's BP was elevated at 191/74 last night and she was started on 5 mg IV lopressor PRN. She was given IV albumin and IV lasix yesterday for fluid overload with TAMEKA. Today patient is resting well and has no complaints. She denies SOB, CP, chills, abdominal pain. Objective PUL Vital signs: Last Vital Signs Temp 97.9 F 11/10/17 07:15 Pulse 80 11/10/17 06:00 Resp 16 11/10/17 08:11 BP 189/89 11/10/17 06:00 Pulse Ox 95 11/10/17 08:11 General appearance: no acute distress, lethargic Auscultation: bilateral: diminished breath sounds, wheezes (Expiratory) Cardiovascular: regular rate and rhythm Gastrointestinal: soft, non-tender Extremities: pulses normal, edema (+1 pitting 2/3 up leg) mood appropriate, affect normal Results - Laboratory Findings CBC and BMP: 11/10/17 03:00 11/10/17 03:00 ABG ABG pH 7.32 pH Units (7.32-7.45) 11/08/17 04:34 ABG pCO2 51 mmHg (35-45) H 11/08/17 04:34 ABG pO2 77 mmHg (85-104) L 11/08/17 04:34 ABG O2 Saturation 94 % (95-98) L 11/08/17 04:34 PT/INR, D-dimer PT 13.3 Seconds (9.4-12.1) H 11/07/17 00:10 Abnormal lab findings: Abnormal lab results WBC 14.0 K/mcL (4.3-11.1) H 11/10/17 03:00 RBC 3.56 M/mcL (3.82-4.97) L 11/10/17 03:00 Hgb 9.4 g/dL (11.5-15.4) L 11/10/17 03:00 Hct 30.0 % (35.3-44.9) L 11/10/17 03:00 MCH 26.4 pg (28.0-33.3) L 11/10/17 03:00 MCHC 31.3 g/dL (31.6-35.5) L 11/10/17 03:00 RDW 15.9 % (11.5-14.5) H 11/10/17 03:00 MPV 9.3 fL (9.4-12.4) L 11/10/17 03:00 Neutrophils # 11.6 K/mcL (1.6-8.9) H 11/10/17 03:00 PT 13.3 Seconds (9.4-12.1) H 11/07/17 00:10 ABG pCO2 51 mmHg (35-45) H 11/08/17 04:34 ABG pO2 77 mmHg (85-104) L 11/08/17 04:34 ABG Total CO2 28 mEq/L (20-26) H 11/08/17 04:34 ABG O2 Saturation 94 % (95-98) L 11/08/17 04:34 Sodium 135 mEq/L (136-145) L 11/10/17 03:00 Carbon Dioxide 20 mEq/L (23-29) L 11/10/17 03:00 BUN 43 mg/dL (8-23) H 11/10/17 03:00 Creatinine 3.38 mg/dL (0.60-1.20) H 11/10/17 03:00 Est GFR ( Amer) 16 (> 60) L 11/10/17 03:00 Est GFR (Non-Af Amer) 14 (> 60) L 11/10/17 03:00 Glucose 121 mg/dL (70-105) H 11/10/17 03:00 POC Glucose 136 mg/dL (70-99) H 11/09/17 23:41 Phosphorus 4.8 mg/dL (2.7-4.5) H 11/09/17 03:05 B-Natriuretic Peptide 999 pg/mL (Less than 100) H 11/07/17 00:46 Serum Total Protein 6.1 g/dL (6.4-8.9) L 11/07/17 05:45 Albumin 3.3 g/dL (3.5-5.7) L 11/07/17 05:45 PTH Intact 175.6 pg/ml (10.0-65.0) H 11/07/17 05:45 Urine Protein >=300 mg/dL (Neg-Trace) H 11/07/17 06:15 Urine Glucose (UA) 250 mg/dL (Normal) H 11/07/17 06:15 Urine Microscopic RBC 5-15 per hpf (0-3) H 11/07/17 06:15 Urine Microscopic WBC 15-30 per hpf (0-3) H 11/07/17 06:15 Ur Squamous Epith Cells Moderate per lpf (None-Few) H 11/07/17 06:15 Protein/Creatinin Ratio 4.59 mg/mg (0.00-0.20) H 11/09/17 18:00 Urine Total Protein 395 mg/dL (1-14) H 11/09/17 18:00 Enterococcus sp PCR DETECTED (Not Detect) A 11/07/17 00:46 - Microbiology Findings Microbiology Findings: Microbiology, Last 48 Hours 11/07/17 06:00 Sputum Culture - Final Aspirate - Diagnostic Findings Chest x-ray: report reviewed, image reviewed - Clinical Findings Intake & Output: Intake & Output 11/09/17 11/10/17 11/10/17 23:59 07:59 15:59 Intake Total 150 / 150 100 / 100 Output Total 200 / 200 700 / 700 Balance -50 / -50 -600 / -600 Weight 134.8 kg
[2017-11-10] MEDS: Furosemide 40 MG/4 ML VIAL IVP SCH ×2 (08:48→18:12)
[2017-11-10] MEDS: Ampicillin/Sulbactam 3,000 MG in 0.9 % Sodium Chloride Mini Bag 100 ML IVPB SCH ×2 (08:48→20:53)
[2017-11-10] MEDS: hydrALAZINE 25 MG TABLET PO SCH ×3 (08:49→20:54)
[2017-11-10] MEDS: risperiDONE 1 MG TABLET PO SCH (08:49)
[2017-11-10] MEDS: Metoprolol 100 MG TABLET PO SCH ×2 (08:49→20:54)
[2017-11-10] MEDS: ALPRAZolam 0.25 MG TABLET PO SCH ×2 (08:49→20:53)
[2017-11-10] MEDS: NIFEdipine XL (24 HR) 30 MG TAB.ER.24 PO SCH (08:49)
[2017-11-10] MEDS ORDERED: *HR* Labetalol 20 MG/4 ML SYRINGE IVP ONE (09:36)
[2017-11-10] MEDS: Ranolazine 500 MG TAB.ER.12H PO SCH ×2 (10:50→20:54)
[2017-11-10] MEDS: Budesonide/Formoterol 160/4.5 1 PUFF INH IH SCH ×2 (11:17→19:50)
--- NOTE | 2017-11-10 17:38 | Nephrology Progress Note ---
Date of Encounter: 11/10/17 Time of Encounter: 11:00 - Assessment and Plan (1) TAMEKA (acute kidney injury) Current Visit: Yes Status: Acute SCr slightly worse at 3.38, GFR 14 with slightly improved UOP on lasix [place] 1075cc in the past 24hrs Will continue diuretics today but discussed possible COMMUNITY OUTREACH [employer]ATE tomorrow if no further improvement in resp status, UOP and renal fxn Continue to avoid nephrotxins if possible (2) CKD (chronic kidney disease) stage 4, GFR 15-29 ml/min Current Visit: Yes Status: Chronic Baseline GFR around 18-21 (3) Acute exacerbation of CHF (congestive heart failure) Current Visit: No Status: Acute Agree with changing diuretics to iv from po today, will monitor strict I/Os Qualifiers: Heart failure type: diastolic Qualified Code(s): I50.33 - Acute on chronic diastolic (congestive) heart failure (4) Acute and chronic respiratory failure with hypercapnia Current Visit: Yes Status: Acute per pulm Subjective Principal diagnosis: Acute respiratory failure Interval history: Pt seen and examined sitting up in chair with daughter at bedside with ?cPAP in place. Objective - Vital Signs Vital signs: Vital Signs Temp Pulse Resp BP Pulse Ox 11/10/17 15:59 22 94 11/10/17 15:00 98.3 F 78 26 171/46 94 11/10/17 14:00 73 25 170/72 94 11/10/17 13:00 74 25 165/59 94 11/10/17 12:00 97.6 F 74 25 186/80 94 11/10/17 11:13 25 94 11/10/17 11:00 76 24 176/84 95 11/10/17 10:00 68 12 184/75 92 11/10/17 09:00 69 14 199/89 95 11/10/17 08:11 16 95 11/10/17 08:00 84 16 194/71 95 11/10/17 07:15 97.9 F 11/10/17 07:00 82 18 192/76 93 11/10/17 06:00 80 16 189/89 93 11/10/17 05:19 97.9 F 11/10/17 05:01 78 19 186/79 94 11/10/17 04:00 77 14 188/72 94 11/10/17 03:20 14 185/73 96 11/10/17 03:02 74 16 185/73 94 11/10/17 02:00 76 21 190/71 94 11/10/17 01:10 77 17 185/68 94 11/10/17 00:17 97.9 F 11/10/17 00:00 75 15 183/67 95 11/09/17 23:46 21 186/67 93 11/09/17 23:00 73 14 174/62 95 11/09/17 22:01 70 19 160/66 91 11/09/17 21:00 71 21 159/67 91 11/09/17 20:06 26 159/67 91 11/09/17 20:00 76 20 160/67 93 11/09/17 19:00 78 17 141/54 94 11/09/17 18:08 76 11/09/17 18:00 97.9 F 72 15 145/54 94 Intake and Output 11/10/17 11/10/17 11/10/17 07:59 15:59 23:59 Intake Total 100 / 100 200 / 200 Output Total 700 / 700 400 / 400 Balance -600 / -600 -200 / -200 Intake: IV Fluids 200 / 200 Unasyn 3,000 MG In 0.9 % Sodium 100 / 100 Chloride (Mini-Bag +) 100 ML @ 200 mls/hr IVPB BID [facility] Rx#: [id number] Oral 100 / 100 Output: Catheter 700 / 700 400 / 400 Other: Weight 134.8 kg Blood Glucose* 111 181 Patient Weight 11/10/17 23:59 Weight 134.8 kg - General Appearance General appearance: Present: obese, chronically ill EENT: Present: ATNC Neck: Present: no JVD, supple Additional Comments: improved areation ant bilat Cardiology: Present: edema, normal S1, normal S2 Gastrointestinal: Present: no tenderness, no guarding, obese Integumentary: Present: warm and dry Neurologic: Present: no focal deficit Musculoskeletal: Present: no deformities Psychiatric: Present: mood/affect appropriate, cooperative - Lab 11/12/17 03:50 11/12/17 03:50 Most recent lab results ABG pH 7.32 pH Units (7.32-7.45) 11/08/17 04:34 ABG pCO2 51 mmHg (35-45) H 11/08/17 04:34 ABG pO2 77 mmHg (85-104) L 11/08/17 04:34 ABG HCO3 27 mEq/L (21-27) 11/08/17 04:34 ABG O2 Saturation 94 % (95-98) L 11/08/17 04:34 Calcium 9.3 mg/dL (8.6-10.3) 11/10/17 03:00 Phosphorus 4.8 mg/dL (2.7-4.5) H 11/09/17 03:05 Magnesium 1.8 mg/dL (1.6-2.6) 11/09/17 03:05 Urine Creatinine 86 mg/dL 11/09/17 18:00 Urine Sodium 21.8 mEq/L 11/09/17 18:00 Urine Total Protein 395 mg/dL (1-14) H 11/09/17 18:00 Consult Discharge Plan - Plan Referrals: Jay Valenzuela DO [Primary Care Provider] -
[2017-11-11 03:42] LABS: Basophils # 0.1 K/mcL (0.0-0.2); Basophils % 0.6 %; Eosinophils # 0.2 K/mcL (0.0-0.6); Eosinophils % 1.2 %; Hemoglobin 9.4 g/dL (11.5-15.4); Immature Granulocytes % 1.8 % (0-4); Immature Platelets 3.1 % (1.1-6.1); Lymphocytes # 0.7 K/mcL (0.6-4.6); Lymphocytes % 5.1 %; Mean Corpuscular HGB Conc 32.4 g/dL (31.6-35.5); Mean Corpuscular Hemoglobin 27.3 pg (28.0-33.3); Mean Corpuscular Volume 84.3 fL (83.0-100.0); Mean Platelet Volume 9.9 fL (9.4-12.4); Monocytes # 1.2 K/mcL (0.0-1.3); Monocytes % 8.3 %; Neutrophils # 11.6 K/mcL (1.6-8.9); Platelet Count 178 K/mcL (140-400); Red Blood Count 3.44 M/mcL (3.82-4.97); Red Cell Distribution Width 15.8 % (11.5-14.5)
[2017-11-11] MEDS: *HR* Metoprolol 5 MG/5 ML VIAL IVP PRN (03:52)
[2017-11-11] MEDS: Insulin LISPRO 300 UNITS/3 ML VIAL SQ SCH ×5 (03:55→20:12)
[2017-11-11] MEDS: Ipratropium/Albuterol Neb 3 ML IH SCH ×6 (04:46→23:19)
[2017-11-11] MEDS: *HR* Heparin 5,000 UNIT/ML VIAL SQ SCH ×3 (06:09→20:11)
[2017-11-11 06:15] LABS: Calcium 9.3 mg/dL (8.6-10.3)
[2017-11-11] MEDS: Budesonide/Formoterol 160/4.5 1 PUFF INH IH SCH ×2 (07:33→19:32)
--- NOTE | 2017-11-11 07:46 | Pulmonology Progress Note ---
Date of Encounter: 11/11/17 Time of Encounter: 07:05 Assessment and Plan (1) Acute respiratory failure with hypoxia and hypercapnia Current Visit: No Status: Acute Patient is still requiring noninvasive ventilation and with more aggressive diuresis there is slight improvement. Will continue diuresis and discussed with nephrology team and agree with the plan. Patient needs to participate with pulmonary rehabilitation and this was explained to her. Encouraged incentive spirometry. Continue current treatment and will keep her in ICU due to her respiratory status. Continue bronchodilators. (2) CKD (chronic kidney disease) stage 3, GFR 30-59 ml/min Current Visit: No Status: Chronic Nephrology team is following, and agree with the plan. (3) Acute exacerbation of CHF (congestive heart failure) Current Visit: No Status: Acute Continue diuresis. Qualifiers: Heart failure type: diastolic Qualified Code(s): I50.33 - Acute on chronic diastolic (congestive) heart failure Subjective Principal diagnosis: Acute respiratory failure Interval history: Patient is still requesting noninvasive ventilation and overall no significant changes. Objective PUL Vital signs: Last Vital Signs Temp 98.1 F 11/11/17 04:00 Pulse 72 11/11/17 06:00 Resp 16 11/11/17 06:00 BP 171/88 11/11/17 06:00 Pulse Ox 92 11/11/17 06:00 General: Patient is in no acute distress. HEENT: Normocephalic atraumatic, pupils are equal round and reactive to light and accommodation, anicteric sclera, nares is patent, mucous membranes moist, no JVD, trachea is midline Cardiovascular: Normal sinus rhythm, S1 and S2 audible, no murmur or rubs Respiratory: Clear, but diminished to auscultation bilaterally. No acute distress. No wheezing. Patient not using accessory muscles. Abdomen: Soft, nontender, nondistended, positive bowel sounds in all 4 quadrants Extremities: Warm, dry, trace lower extremity edema. Normal capillary refill. Neuro: Alert and oriented and follows commands. Grossly no neuro deficits. Skin: Warm to touch : No obvious abnormalities. Psych: Normal Ventilator Settings Ventilator Settings: Patient remain on noninvasive ventilation FiO2 of 35%. Results - Laboratory Findings CBC and BMP: 11/11/17 03:25 11/11/17 03:25 ABG ABG pH 7.32 pH Units (7.32-7.45) 11/08/17 04:34 ABG pCO2 51 mmHg (35-45) H 11/08/17 04:34 ABG pO2 77 mmHg (85-104) L 11/08/17 04:34 ABG O2 Saturation 94 % (95-98) L 11/08/17 04:34 PT/INR, D-dimer PT 13.3 Seconds (9.4-12.1) H 11/07/17 00:10 Abnormal lab findings: Abnormal lab results WBC 14.0 K/mcL (4.3-11.1) H 11/11/17 03:25 RBC 3.44 M/mcL (3.82-4.97) L 11/11/17 03:25 Hgb 9.4 g/dL (11.5-15.4) L 11/11/17 03:25 Hct 29.0 % (35.3-44.9) L 11/11/17 03:25 MCH 27.3 pg (28.0-33.3) L 11/11/17 03:25 RDW 15.8 % (11.5-14.5) H 11/11/17 03:25 Neutrophils # 11.6 K/mcL (1.6-8.9) H 11/11/17 03:25 PT 13.3 Seconds (9.4-12.1) H 11/07/17 00:10 ABG pCO2 51 mmHg (35-45) H 11/08/17 04:34 ABG pO2 77 mmHg (85-104) L 11/08/17 04:34 ABG Total CO2 28 mEq/L (20-26) H 11/08/17 04:34 ABG O2 Saturation 94 % (95-98) L 11/08/17 04:34 Sodium 134 mEq/L (136-145) L 11/11/17 03:25 Carbon Dioxide 20 mEq/L (23-29) L 11/11/17 03:25 BUN 52 mg/dL (8-23) H 11/11/17 03:25 Creatinine 3.56 mg/dL (0.60-1.20) H 11/11/17 03:25 Est GFR ( Amer) 15 (> 60) L 11/11/17 03:25 Est GFR (Non-Af Amer) 13 (> 60) L 11/11/17 03:25 POC Glucose 168 mg/dL (70-99) H 11/10/17 23:53 Phosphorus 4.8 mg/dL (2.7-4.5) H 11/09/17 03:05 B-Natriuretic Peptide 999 pg/mL (Less than 100) H 11/07/17 00:46 Serum Total Protein 6.1 g/dL (6.4-8.9) L 11/07/17 05:45 Albumin 3.3 g/dL (3.5-5.7) L 11/07/17 05:45 PTH Intact 175.6 pg/ml (10.0-65.0) H 11/07/17 05:45 Urine Protein >=300 mg/dL (Neg-Trace) H 11/07/17 06:15 Urine Glucose (UA) 250 mg/dL (Normal) H 11/07/17 06:15 Urine Microscopic RBC 5-15 per hpf (0-3) H 11/07/17 06:15 Urine Microscopic WBC 15-30 per hpf (0-3) H 11/07/17 06:15 Ur Squamous Epith Cells Moderate per lpf (None-Few) H 11/07/17 06:15 Protein/Creatinin Ratio 4.59 mg/mg (0.00-0.20) H 11/09/17 18:00 Urine Total Protein 395 mg/dL (1-14) H 11/09/17 18:00 Enterococcus sp PCR DETECTED (Not Detect) A 11/07/17 00:46 - Microbiology Findings Microbiology Findings: Microbiology, Last 48 Hours 11/10/17 09:35 Blood Culture - Preliminary Peripheral Venipuncture Culture is incubating and being continuously monitored for growth. Final report to follow. 11/10/17 09:35 Blood Culture - Preliminary Peripheral Venipuncture Culture is incubating and being continuously monitored for growth. Final report to follow. 11/07/17 06:00 Sputum Culture - Final Aspirate - Clinical Findings Intake & Output: Intake & Output 11/10/17 11/10/17 11/11/17 15:59 23:59 07:59 Intake Total 200 / 200 100 / 100 300 / 300 Output Total 400 / 400 100 / 100 250 / 250 Balance -200 / -200 0 / 0 50 / 50 Weight 135 kg Consult Discharge Plan - Plan Referrals: Jay Valenzuela DO [Primary Care Provider] -
[2017-11-11] MEDS: Ampicillin/Sulbactam 3,000 MG in 0.9 % Sodium Chloride Mini Bag 100 ML IVPB SCH ×2 (08:01→20:11)
[2017-11-11] MEDS: Furosemide 40 MG/4 ML VIAL IVP SCH ×2 (08:01→16:28)
[2017-11-11] MEDS: Ranolazine 500 MG TAB.ER.12H PO SCH ×2 (08:02→20:10)
[2017-11-11] MEDS: ALPRAZolam 0.25 MG TABLET PO SCH ×2 (08:02→20:10)
[2017-11-11] MEDS: hydrALAZINE 25 MG TABLET PO SCH ×3 (08:02→20:10)
[2017-11-11] MEDS: NIFEdipine XL (24 HR) 30 MG TAB.ER.24 PO SCH (08:03)
[2017-11-11] MEDS: risperiDONE 1 MG TABLET PO SCH (08:03)
[2017-11-11] MEDS: Metoprolol 100 MG TABLET PO SCH ×2 (08:03→20:10)
[2017-11-11] MEDS ORDERED: NIFEdipine XL (24 HR) 30 MG TAB.ER.24 PO ONE (10:45)
[2017-11-11] MEDS ORDERED: 0.9 % Sodium Chloride 250 ML IVC PRN (13:16)
[2017-11-11] MEDS ORDERED: *HR* Heparin 10,000 UNIT/10 ML VIAL IV PRN (13:27)
[2017-11-11] MEDS ORDERED: 0.9 % Sodium Chloride 1,000 ML PRIME SCH (13:30)
[2017-11-11] MEDS ORDERED: 0.9 % Sodium Chloride 1,000 ML ONE (14:38)
[2017-11-11] MEDS ORDERED: Heparin 1,000 UNITS/500 mL 500 ML ONE (14:59)
[2017-11-11] MEDS ORDERED: *HR* Heparin 5,000 UNIT/ML VIAL ONE (15:29)
--- NOTE | 2017-11-11 15:31 | IR Procedure Note ---
Date of procedure: 11/11/17 Consent Obtained: Verbal consent Timeout: Correct patient and procedure verified, Time out performed, Skin prep completed Local anesthetic: Lidocaine 1% Indications: ARF Procedure Performed: Temp dialysis catheter placement Was there an switchboard operator assistant present: No Results/Findings: RIJ 15.5F 20cm temp dialysis catheter placement Estimated blood loss (cc): 0 Complications: None; Tolerated procedure well Post Procedure Treatment Plan: Monitor on floor Specimen: None
[2017-11-11] MEDS: metOLazone 5 MG TABLET PO SCH (16:26)
--- NOTE | 2017-11-11 17:35 | Nephrology Progress Note ---
Date of Encounter: 11/11/17 Time of Encounter: 12:00 - Assessment and Plan (1) TAMEKA (acute kidney injury) Current Visit: Yes Status: Acute Will start HD today with goal UF of 2kg once IR places temp IJ catheter (2) CKD (chronic kidney disease) stage 4, GFR 15-29 ml/min Current Visit: Yes Status: Chronic PTH noted elevated, will repeat vitamin D previously very low, continue ergocalciferol (3) Acute exacerbation of CHF (congestive heart failure) Current Visit: No Status: Acute Continue HD with UF for now and also diuretics as needed. monitor strict I/Os Qualifiers: Heart failure type: diastolic Qualified Code(s): I50.33 - Acute on chronic diastolic (congestive) heart failure (4) Acute and chronic respiratory failure with hypercapnia Current Visit: Yes Status: Acute per pulm Subjective Principal diagnosis: Acute respiratory failure Interval history: Pt seen and examined sitting up in chair with daughter at bedside with NC in place but still visibly dyspneic Objective - Vital Signs Vital signs: Vital Signs Temp Pulse Resp BP Pulse Ox 11/11/17 16:55 163/65 11/11/17 16:40 97.6 F 18 153/74 11/11/17 16:00 97.6 F 76 19 140/70 90 11/11/17 14:00 73 20 133/58 96 11/11/17 13:00 74 20 162/65 94 11/11/17 12:00 97.8 F 72 20 128/84 94 11/11/17 11:13 14 127/54 91 11/11/17 11:00 72 14 127/54 91 11/11/17 10:00 72 18 120/61 90 11/11/17 09:11 81 16 154/89 96 11/11/17 08:00 97.0 F L 75 16 198/88 93 11/11/17 07:40 97.0 F L 11/11/17 07:33 18 183/72 93 11/11/17 07:00 75 18 185/71 96 11/11/17 06:00 72 16 171/88 92 11/11/17 05:00 71 15 177/62 93 11/11/17 04:46 21 178/68 92 11/11/17 04:00 98.1 F 73 17 177/80 93 11/11/17 03:00 72 19 184/77 91 09/26/18 02:00 71 24 160/83 90 11/11/17 01:00 73 22 164/73 90 11/11/17 00:00 98 F 75 25 163/62 90 11/10/17 23:51 20 155/64 90 11/10/17 23:00 74 22 153/79 92 11/10/17 22:00 79 34 157/72 91 11/10/17 21:00 82 22 188/68 90 11/10/17 20:00 98.4 F 79 28 173/116 92 11/10/17 19:50 21 181/67 91 11/10/17 19:00 77 34 179/74 90 11/10/17 18:00 75 24 181/73 91 Intake and Output 11/11/17 11/11/17 11/11/17 07:59 15:59 23:59 Intake Total 300 / 300 600 / 600 Output Total 450 / 450 100 / 100 0 / 0 Balance -150 / -150 -100 / -100 600 / 600 Intake: Oral 300 / 300 Intake, Rinseback and Flushes 600 / 600 Output: Catheter 450 / 450 100 / 100 0 / 0 Urethral (Hwang) 0 / 0 Other: Meal Breakfast Weight 135 kg 135 kg Blood Glucose* 125 217 201 Hemodialysis Net Fluid Removed 325 (mL) Patient Weight 11/11/17 23:59 Weight 135 kg - General Appearance General appearance: Present: moderate distress (due to SOB), chronically ill EENT: Present: ATNC, mucous membranes moist Neck: Present: no JVD, supple Additional Comments: decreased BS throughout bilat Cardiology: Present: normal S1, normal S2 Dialysis Vascular Access: Venous Catheter (temp IJ HD catheter) Gastrointestinal: Present: no tenderness, no guarding Integumentary: Present: warm and dry Neurologic: Present: no focal deficit Musculoskeletal: Present: no deformities Psychiatric: Present: mood/affect appropriate - Lab 11/12/17 03:50 11/12/17 03:50 Most recent lab results ABG pH 7.32 pH Units (7.32-7.45) 11/08/17 04:34 ABG pCO2 51 mmHg (35-45) H 11/08/17 04:34 ABG pO2 77 mmHg (85-104) L 11/08/17 04:34 ABG HCO3 27 mEq/L (21-27) 11/08/17 04:34 ABG O2 Saturation 94 % (95-98) L 11/08/17 04:34 Calcium 9.3 mg/dL (8.6-10.3) 11/11/17 03:25 Phosphorus 4.8 mg/dL (2.7-4.5) H 11/09/17 03:05 Magnesium 1.8 mg/dL (1.6-2.6) 11/09/17 03:05 Urine Creatinine 86 mg/dL 11/09/17 18:00 Urine Sodium 21.8 mEq/L 11/09/17 18:00 Urine Total Protein 395 mg/dL (1-14) H 11/09/17 18:00 Consult Discharge Plan - Plan Referrals: Jay Valenzuela DO [Primary Care Provider] -
[2017-11-11 19:36] LABS: Hepatitis B Surface Antigen Nonreactive (Nonreactive)
[2017-11-11] MEDS: Sennosides/Docusate Sodium TABLET PO SCH (20:10)
[2017-11-12] MEDS: Insulin LISPRO 300 UNITS/3 ML VIAL SQ SCH ×6 (00:06→21:13)
[2017-11-12] MEDS: Ipratropium/Albuterol Neb 3 ML IH SCH ×6 (03:11→23:13)
[2017-11-12 04:13] LABS: Basophils # 0.1 K/mcL (0.0-0.2); Basophils % 0.7 %; Eosinophils # 0.3 K/mcL (0.0-0.6); Eosinophils % 1.7 %; Hematocrit 29.4 % (35.3-44.9); Hemoglobin 9.2 g/dL (11.5-15.4); Immature Granulocytes % 3.1 % (0-4); Lymphocytes # 0.9 K/mcL (0.6-4.6); Lymphocytes % 4.9 %; Mean Corpuscular HGB Conc 31.3 g/dL (31.6-35.5); Mean Corpuscular Hemoglobin 26.4 pg (28.0-33.3); Mean Corpuscular Volume 84.2 fL (83.0-100.0); Mean Platelet Volume 9.8 fL (9.4-12.4); Monocytes # 1.7 K/mcL (0.0-1.3); Monocytes % 9.2 %; Neutrophils # 14.7 K/mcL (1.6-8.9); Nucleated Red Blood Cells 0.2 /100 WBC (0); Platelet Count 206 K/mcL (140-400); Red Blood Count 3.49 M/mcL (3.82-4.97); Red Cell Distribution Width 15.9 % (11.5-14.5); Segmented Neutrophils % 80.4 %
[2017-11-12 04:23] LABS: Calcium 9.4 mg/dL (8.6-10.3); Potassium 4.3 mEq/L (3.5-5.1)
[2017-11-12] MEDS: *HR* Heparin 5,000 UNIT/ML VIAL SQ SCH ×3 (05:04→20:50)
[2017-11-12] MEDS: *HR* Metoprolol 5 MG/5 ML VIAL IVP PRN ×2 (05:05→15:48)
[2017-11-12] MEDS: Furosemide 40 MG/4 ML VIAL IVP SCH ×3 (07:47→18:37)
[2017-11-12] MEDS ORDERED: *HR* Labetalol 20 MG/4 ML SYRINGE IVP ONE (08:18)
[2017-11-12] MEDS ORDERED: *HR* Heparin 10,000 UNIT/10 ML VIAL IV PRN (08:37)
[2017-11-12] MEDS ORDERED: 0.9 % Sodium Chloride 250 ML IVC PRN ×2 (08:37→16:02)
[2017-11-12] MEDS ORDERED: 0.9 % Sodium Chloride 1,000 ML PRIME SCH ×2 (08:45→16:02)
[2017-11-12] MEDS ORDERED: NIFEdipine XL (24 HR) 60 MG TAB.ER.24 PO SCH (09:00)
[2017-11-12] MEDS: Budesonide/Formoterol 160/4.5 1 PUFF INH IH SCH ×2 (10:01→19:52)
--- NOTE | 2017-11-12 10:04 | Pulmonology Progress Note ---
<Lara Brunson M - Last Filed: 11/12/17 13:20> Date of Encounter: 11/12/17 Assessment and Plan (1) Acute respiratory failure with hypoxia and hypercapnia Current Visit: No Status: Acute (2) CKD (chronic kidney disease) stage 3, GFR 30-59 ml/min Current Visit: No Status: Chronic (3) Acute exacerbation of CHF (congestive heart failure) Current Visit: No Status: Acute Qualifiers: Heart failure type: diastolic Qualified Code(s): I50.33 - Acute on chronic diastolic (congestive) heart failure Objective PUL Vital signs: Last Vital Signs Temp 98 F 11/12/17 08:00 Pulse 79 11/12/17 09:00 Resp 18 11/12/17 09:00 BP 179/65 11/12/17 09:00 Pulse Ox 95 11/12/17 09:00 Results - Laboratory Findings CBC and BMP: 11/12/17 03:50 11/12/17 03:50 ABG ABG pH 7.32 pH Units (7.32-7.45) 11/08/17 04:34 ABG pCO2 51 mmHg (35-45) H 11/08/17 04:34 ABG pO2 77 mmHg (85-104) L 11/08/17 04:34 ABG O2 Saturation 94 % (95-98) L 11/08/17 04:34 PT/INR, D-dimer PT 13.3 Seconds (9.4-12.1) H 11/07/17 00:10 Abnormal lab findings: Abnormal lab results WBC 18.3 K/mcL (4.3-11.1) H 11/12/17 03:50 RBC 3.49 M/mcL (3.82-4.97) L 11/12/17 03:50 Hgb 9.2 g/dL (11.5-15.4) L 11/12/17 03:50 Hct 29.4 % (35.3-44.9) L 11/12/17 03:50 MCH 26.4 pg (28.0-33.3) L 11/12/17 03:50 MCHC 31.3 g/dL (31.6-35.5) L 11/12/17 03:50 RDW 15.9 % (11.5-14.5) H 11/12/17 03:50 Neutrophils # 14.7 K/mcL (1.6-8.9) H 11/12/17 03:50 Monocytes # 1.7 K/mcL (0.0-1.3) H 11/12/17 03:50 Nucleated RBCs/100 WBC 0.2 /100 WBC (0) H 11/12/17 03:50 PT 13.3 Seconds (9.4-12.1) H 11/07/17 00:10 ABG pCO2 51 mmHg (35-45) H 11/08/17 04:34 ABG pO2 77 mmHg (85-104) L 11/08/17 04:34 ABG Total CO2 28 mEq/L (20-26) H 11/08/17 04:34 ABG O2 Saturation 94 % (95-98) L 11/08/17 04:34 Sodium 135 mEq/L (136-145) L 11/12/17 03:50 Chloride 97 mEq/L (98-107) L 11/12/17 03:50 BUN 45 mg/dL (8-23) H 11/12/17 03:50 Creatinine 3.10 mg/dL (0.60-1.20) H 11/12/17 03:50 Est GFR ( Amer) 18 (> 60) L 11/12/17 03:50 Est GFR (Non-Af Amer) 15 (> 60) L 11/12/17 03:50 Glucose 123 mg/dL (70-105) H 11/12/17 03:50 POC Glucose 153 mg/dL (70-99) H 11/11/17 23:31 Phosphorus 4.8 mg/dL (2.7-4.5) H 11/09/17 03:05 B-Natriuretic Peptide 999 pg/mL (Less than 100) H 11/07/17 00:46 Serum Total Protein 6.1 g/dL (6.4-8.9) L 11/07/17 05:45 Albumin 3.3 g/dL (3.5-5.7) L 11/07/17 05:45 PTH Intact 175.6 pg/ml (10.0-65.0) H 11/07/17 05:45 Urine Protein >=300 mg/dL (Neg-Trace) H 11/07/17 06:15 Urine Glucose (UA) 250 mg/dL (Normal) H 11/07/17 06:15 Urine Microscopic RBC 5-15 per hpf (0-3) H 11/07/17 06:15 Urine Microscopic WBC 15-30 per hpf (0-3) H 11/07/17 06:15 Ur Squamous Epith Cells Moderate per lpf (None-Few) H 11/07/17 06:15 Protein/Creatinin Ratio 4.59 mg/mg (0.00-0.20) H 11/09/17 18:00 Urine Total Protein 395 mg/dL (1-14) H 11/09/17 18:00 Enterococcus sp PCR DETECTED (Not Detect) A 11/07/17 00:46 - Microbiology Findings Microbiology Findings: Microbiology, Last 48 Hours 11/10/17 09:35 Blood Culture - Preliminary Peripheral Venipuncture Culture is incubating and being continuously monitored for growth. Final report to follow. 11/10/17 09:35 Blood Culture - Preliminary Peripheral Venipuncture Culture is incubating and being continuously monitored for growth. Final report to follow. - Clinical Findings Intake & Output: Intake & Output 11/11/17 11/12/17 11/12/17 23:59 07:59 15:59 Intake Total 850 / 850 Output Total 2768 / 2768 200 / 200 125 / 125 Balance -1918 / -1918 -200 / -200 -125 / -125 Weight 132.7 kg Consult Discharge Plan - Plan Referrals: Jay Valenzuela DO [Primary Care Provider] - - Attending Attestation I examined this patient and my medical decision-making was reviewed with the Resident Physician. I agree with the documented findings, disposition and treatment plan as described except to the extent set forth below. Patient seen and examined. Labs, radiology, chart personally reviewed. Agree with resident's history and physical, assessment, plan with following comments: TICKET BROKER: Patient follows commands, Pulmonary: Acceptable oxygenation and ventilation. Continue NIV. Cardiovascular: Hypertension and it is been treated. GI: Nutrition per dietary and GI prophylaxis per routine Heme: DVT prophylaxis per routine ID: Continue antibiotics and plan to de-escalation Renal; urine out put and renal funtion reviewed. Patient on HD nephrology is following up. Nephrology to follow up on BP. I feel this is most likely hypertensive urgency and she already has chronic kidney disease and it be uncontrolled. Endorcine: blood glucose is monitored Lines: all lines checked and no evidence of infections Skin: skin care to prevent pressure ulcers per nursing routine care <Olegario Ames S - Last Filed: 11/12/17 16:27> Date of Encounter: 11/12/17 Time of Encounter: 07:30 Assessment and Plan (1) Acute on chronic respiratory failure with hypoxia and hypercapnia Current Visit: Yes Status: Acute Acute respiratory failure upon arrival to ED likely 2/2 decompensated heart failure Patient states she is breathing better today Patient extubated on 11/08 Patient on BIPAP FiO2 of 40%, saturating at 95% ABG from 11/09 shows resp acidosis with pH 7.32, pCO2 51, PO2 77, HCO3 27 Duonebs BID Given albumin with IV lasix 2 days ago Started on IV lasix 40 mg BID Patient will be transferred to floor (2) Heart failure, diastolic, with acute decompensation Current Visit: Yes Status: Acute Acute decompensation likely 2/2 hypertensive urgency Given IV albumin followed by IV lasix 2 days ago Started on IV lasix 40 mg BID BNP - 999 CXR on 11/09 shows cardiomegaly and BL pleural effusions Previous echo on 10/03 showed EF 60-65%, mild LV hypertrophy, valves not assessed , no mention of pulm HTN Fluid overload state is improving (3) COPD exacerbation Current Visit: Yes Status: Acute Hx of COPD on 2L home O2 Weaned off vent On BIPAP at FiO2 40%, saturating at 96% Frequent trials off BIPAP, patient does not tolerate more than 30 minutes Resp failure more likely 2/2 decompensated heart failure over COPD exacerbation (4) Hypertensive urgency Current Visit: Yes Status: Acute BP elevated at systolic of low 206/86, given IV labetalol 20 mg Increased PO nifedipine (ER) to home dose of 120 mg daily Patient currently on PO hydralazine 100 mg TID and PO metoprolol 100 mg BID Started IV lasix 40 mg BID Discontinued IV nicardipine and spironolactone Will continue to monitor (5) Pneumonia Current Visit: Yes Status: Acute Possibly aspiration in setting of encephalopathy vs HAP with recent hospitalization Continue IV unasyn 3g BID (day 4) Discontinued vancomycin and zosyn Blood culture shows gram (+) cocci Urine culture shows legionella antigen Repeat blood culture x2 (11/10) WBC 14 > 18.3 today, afebrile Qualifiers: Pneumonia type: due to unspecified organism Laterality: unspecified laterality Lung location: unspecified part of lung Qualified Code(s): J18.9 - Pneumonia, unspecified organism (6) CKD (chronic kidney disease) stage 4, GFR 15-29 ml/min Current Visit: Yes Status: Chronic Down trending Cr 3.56 > 3.10 Started on IV lasix 40 mg BID Nephrology on consult Dialysis catheter placed yesterday Started dialysis yesterday, had second treatment with dialysis today, plan for a 3rd treatment of dialysis tomorrow Ordered urine studies, patient has nephrotic range proteinuria (7) Encephalopathy acute Current Visit: Yes Status: Resolved Encephalopathy has resolved (8) Diabetes mellitus Current Visit: Yes Status: Chronic Med dose SSI Continue accuchecks Glucose 123 today Qualifiers: Diabetes mellitus type: type 2 Diabetes mellitus newspaper writer insulin use: with newspaper writer use Diabetes mellitus complication status: with kidney complications Diabetes mellitus complication detail: with chronic kidney disease Chronic kidney disease stage: stage 4 (severe) Qualified Code(s): E11.22 - Type 2 diabetes mellitus with diabetic chronic kidney disease; N18.4 - Chronic kidney disease, stage 4 (severe); Z79.4 - long-term (current) use of insulin (9) DVT prophylaxis Current Visit: No Status: Acute Subcutaneous heparin Subjective Principal diagnosis: Acute respiratory failure Interval history: 67 female with PMHx of COPD on home O2, CKD stage 4, CHF, DM2, HTN presents to ICU with acute respiratory failure 2/2 CHF exacerbation and HTN urgency. Patient needed breathing treatment overnight for episodes of wheezing. Patient currently saturating well on BIPAP. Patient's BP was elevated at 200s/80 this AM and patient was given IV labetalol 20 mg. Patient had dialysis catheter placed yesterday and started dialysis. Today patient is resting well and has no complaints. She denies SOB, CP, chills, abdominal pain. Patient will be transferred to floor. Objective PUL Vital signs: Last Vital Signs Temp 98 F 11/12/17 08:00 Pulse 92 11/12/17 08:00 Resp 16 11/12/17 08:00 BP 201/76 11/12/17 08:00 Pulse Ox 95 11/12/17 08:00 General appearance: no acute distress Effort: normal, other (on BIPAP) Auscultation: bilateral: clear, diminished breath sounds Cardiovascular: regular rate and rhythm Gastrointestinal: soft, non-tender Integumentary: normal Extremities: no cyanosis, edema (+1 pitting edema in LE bilaterally) normal mental status mood appropriate, affect normal Results - Laboratory Findings CBC and BMP: 11/12/17 03:50 11/12/17 03:50 ABG ABG pH 7.32 pH Units (7.32-7.45) 11/08/17 04:34 ABG pCO2 51 mmHg (35-45) H 11/08/17 04:34 ABG pO2 77 mmHg (85-104) L 11/08/17 04:34 ABG O2 Saturation 94 % (95-98) L 11/08/17 04:34 PT/INR, D-dimer PT 13.3 Seconds (9.4-12.1) H 11/07/17 00:10 Abnormal lab findings: Abnormal lab results WBC 18.3 K/mcL (4.3-11.1) H 11/12/17 03:50 RBC 3.49 M/mcL (3.82-4.97) L 11/12/17 03:50 Hgb 9.2 g/dL (11.5-15.4) L 11/12/17 03:50 Hct 29.4 % (35.3-44.9) L 11/12/17 03:50 MCH 26.4 pg (28.0-33.3) L 11/12/17 03:50 MCHC 31.3 g/dL (31.6-35.5) L 11/12/17 03:50 RDW 15.9 % (11.5-14.5) H 11/12/17 03:50 Neutrophils # 14.7 K/mcL (1.6-8.9) H 11/12/17 03:50 Monocytes # 1.7 K/mcL (0.0-1.3) H 11/12/17 03:50 Nucleated RBCs/100 WBC 0.2 /100 WBC (0) H 11/12/17 03:50 PT 13.3 Seconds (9.4-12.1) H 11/07/17 00:10 ABG pCO2 51 mmHg (35-45) H 11/08/17 04:34 ABG pO2 77 mmHg (85-104) L 11/08/17 04:34 ABG Total CO2 28 mEq/L (20-26) H 11/08/17 04:34 ABG O2 Saturation 94 % (95-98) L 11/08/17 04:34 Sodium 135 mEq/L (136-145) L 11/12/17 03:50 Chloride 97 mEq/L (98-107) L 11/12/17 03:50 BUN 45 mg/dL (8-23) H 11/12/17 03:50 Creatinine 3.10 mg/dL (0.60-1.20) H 11/12/17 03:50 Est GFR ( Amer) 18 (> 60) L 11/12/17 03:50 Est GFR (Non-Af Amer) 15 (> 60) L 11/12/17 03:50 Glucose 123 mg/dL (70-105) H 11/12/17 03:50 POC Glucose 153 mg/dL (70-99) H 11/11/17 23:31 Phosphorus 4.8 mg/dL (2.7-4.5) H 11/09/17 03:05 B-Natriuretic Peptide 999 pg/mL (Less than 100) H 11/07/17 00:46 Serum Total Protein 6.1 g/dL (6.4-8.9) L 11/07/17 05:45 Albumin 3.3 g/dL (3.5-5.7) L 11/07/17 05:45 PTH Intact 175.6 pg/ml (10.0-65.0) H 11/07/17 05:45 Urine Protein >=300 mg/dL (Neg-Trace) H 11/07/17 06:15 Urine Glucose (UA) 250 mg/dL (Normal) H 11/07/17 06:15 Urine Microscopic RBC 5-15 per hpf (0-3) H 11/07/17 06:15 Urine Microscopic WBC 15-30 per hpf (0-3) H 11/07/17 06:15 Ur Squamous Epith Cells Moderate per lpf (None-Few) H 11/07/17 06:15 Protein/Creatinin Ratio 4.59 mg/mg (0.00-0.20) H 11/09/17 18:00 Urine Total Protein 395 mg/dL (1-14) H 11/09/17 18:00 Enterococcus sp PCR DETECTED (Not Detect) A 11/07/17 00:46 - Microbiology Findings Microbiology Findings: Microbiology, Last 48 Hours 11/10/17 09:35 Blood Culture - Preliminary Peripheral Venipuncture Culture is incubating and being continuously monitored for growth. Final report to follow. 11/10/17 09:35 Blood Culture - Preliminary Peripheral Venipuncture Culture is incubating and being continuously monitored for growth. Final report to follow. - Clinical Findings Intake & Output: Intake & Output 11/11/17 11/12/17 11/12/17 23:59 07:59 15:59 Intake Total 850 / 850 Output Total 2768 / 2768 200 / 200 125 / 125 Balance -1918 / -1918 -200 / -200 -125 / -125 Weight 132.7 kg
[2017-11-12] MEDS: Ranolazine 500 MG TAB.ER.12H PO SCH ×2 (13:47→20:49)
[2017-11-12] MEDS: Sennosides/Docusate Sodium TABLET PO SCH ×2 (13:48→20:49)
[2017-11-12] MEDS: Metoprolol 100 MG TABLET PO SCH ×2 (13:48→20:49)
[2017-11-12] MEDS: metOLazone 5 MG TABLET PO SCH (13:48)
[2017-11-12] MEDS: risperiDONE 1 MG TABLET PO SCH ×2 (13:48→18:37)
[2017-11-12] MEDS: Ampicillin/Sulbactam 3,000 MG in 0.9 % Sodium Chloride Mini Bag 100 ML IVPB SCH ×2 (13:53→20:51)
[2017-11-12] MEDS: ALPRAZolam 0.25 MG TABLET PO SCH (13:53)
[2017-11-12] MEDS: hydrALAZINE 25 MG TABLET PO SCH ×3 (13:59→20:50)
--- NOTE | 2017-11-12 14:11 | Nephrology Progress Note ---
Date of Encounter: 11/12/17 Time of Encounter: 12:00 - Assessment and Plan (1) TAMEKA (acute kidney injury) Current Visit: Yes Status: Acute Scr improved at 3.1 after a 2 hour HD session yesterday with 2kg net UF Continue HD today for 3 hrs with UF goal of 2-3kg as tolerated Plan to have a third session tomorrow as well. Continue to avoid nephrotoxins if possible (2) CKD (chronic kidney disease) stage 4, GFR 15-29 ml/min Current Visit: Yes Status: Chronic Baseline GFR appears to be around 18-21 (3) Acute exacerbation of CHF (congestive heart failure) Current Visit: No Status: Acute Continue HD with UF for now and also diuretics as needed. monitor strict I/Os Qualifiers: Heart failure type: diastolic Qualified Code(s): I50.33 - Acute on chronic diastolic (congestive) heart failure (4) Acute and chronic respiratory failure with hypercapnia Current Visit: Yes Status: Acute per pulm Subjective Principal diagnosis: Acute respiratory failure Interval history: Pt seen and examined on HD feeling slightly better but still SOB. No new complaints Objective - Vital Signs Vital signs: Vital Signs Temp Pulse Resp BP Pulse Ox 11/12/17 14:00 88 16 191/74 97 11/12/17 12:15 181/69 11/12/17 12:00 192/72 11/12/17 11:45 176/67 11/12/17 11:30 173/73 11/12/17 11:26 89 11/12/17 11:15 178/65 11/12/17 11:00 205/72 11/12/17 10:45 197/75 11/12/17 10:30 195/89 11/12/17 10:15 206/91 11/12/17 10:00 97.9 F 22 198/88 11/12/17 09:00 79 18 179/65 95 11/12/17 08:00 98 F 92 16 201/76 95 11/12/17 07:25 14 206/86 97 11/12/17 07:00 81 20 208/85 95 11/12/17 06:00 80 14 206/86 94 11/12/17 05:04 15 204/81 93 11/12/17 05:00 80 14 204/81 93 11/12/17 04:52 97.9 F 11/12/17 04:00 87 15 206/91 95 11/12/17 03:37 87 11/12/17 03:11 22 92 11/12/17 03:00 81 16 193/72 91 11/12/17 02:00 78 23 186/89 90 11/12/17 01:17 78 20 193/82 90 11/12/17 00:00 76 26 101/71 92 11/11/17 23:59 97.9 F 11/11/17 23:20 21 92 11/11/17 23:00 75 14 92/83 91 11/11/17 22:00 76 10 112/99 93 11/11/17 21:28 97.4 F L 11/11/17 21:04 20 149/68 93 11/11/17 21:00 82 15 149/68 93 11/11/17 20:00 84 26 148/56 97 11/11/17 19:32 12 97 11/11/17 19:00 81 25 155/60 94 11/11/17 18:59 97.2 F L 18 140/63 11/11/17 18:40 138/60 11/11/17 18:25 136/55 11/11/17 18:10 161/97 11/11/17 18:00 82 17 145/94 94 11/11/17 17:55 151/100 11/11/17 17:40 173/80 11/11/17 17:25 175/80 11/11/17 17:10 156/63 11/11/17 17:00 80 17 175/80 92 11/11/17 16:55 163/65 11/11/17 16:40 97.6 F 18 153/74 11/11/17 16:00 97.6 F 76 19 140/70 90 Intake and Output 11/11/17 11/12/17 11/12/17 23:59 07:59 15:59 Intake Total 850 / 850 600 / 600 Output Total 2768 / 2768 200 / 200 125 / 125 Balance -1918 / -1918 -200 / -200 475 / 475 Intake: IV Fluids 200 / 200 Unasyn 3,000 MG In 0.9 % Sodium 200 / 200 Chloride (Mini-Bag +) 100 ML @ 200 mls/hr IVPB BID [facility] Rx#: [id number] Oral 50 / 50 Intake, Rinseback and Flushes 600 / 600 600 / 600 Output: Total Dialysis (HD) Output 2600 / 2600 Catheter 168 / 168 200 / 200 125 / 125 Urethral (Hwang) 0 / 0 Other: Weight 132.7 kg Blood Glucose* 153 137 101 Hemodialysis Net Fluid Removed 1999 2700 (mL) - General Appearance General appearance: Present: chronically ill (with mild distress due to SOB) EENT: Present: ATNC, mucous membranes moist Neck: Present: no JVD, supple Additional Comments: slightly improved BS ant bilat Cardiology: Present: edema (UE/LE bilat), normal S1, normal S2 Gastrointestinal: Present: no tenderness, no guarding, obese Integumentary: Present: warm and dry Neurologic: Present: no focal deficit Musculoskeletal: Present: no deformities Psychiatric: Present: mood/affect appropriate, cooperative - Lab 11/12/17 03:50 11/12/17 03:50 Most recent lab results ABG pH 7.32 pH Units (7.32-7.45) 11/08/17 04:34 ABG pCO2 51 mmHg (35-45) H 11/08/17 04:34 ABG pO2 77 mmHg (85-104) L 11/08/17 04:34 ABG HCO3 27 mEq/L (21-27) 11/08/17 04:34 ABG O2 Saturation 94 % (95-98) L 11/08/17 04:34 Calcium 9.4 mg/dL (8.6-10.3) 11/12/17 03:50 Phosphorus 4.8 mg/dL (2.7-4.5) H 11/09/17 03:05 Magnesium 1.8 mg/dL (1.6-2.6) 11/09/17 03:05 Urine Creatinine 86 mg/dL 11/09/17 18:00 Urine Sodium 21.8 mEq/L 11/09/17 18:00 Urine Total Protein 395 mg/dL (1-14) H 11/09/17 18:00 Consult Discharge Plan - Plan Referrals: Jay Valenzuela DO [Primary Care Provider] -
[2017-11-12] MEDS ORDERED: *HR* HYDROcodone/Acet 5/325 mg TABLET PO PRN (16:02)
[2017-11-12] MEDS ORDERED: *HR* Dextrose 50 % in Water (Syg) 50 ML SYRINGE IVP PRN (16:02)
[2017-11-12] MEDS ORDERED: D5% in Water 1,000 ML IVC PRN (16:02)
[2017-11-12] MEDS ORDERED: Ondansetron 4 MG/2 ML VIAL IVP PRN (16:02)
[2017-11-12] MEDS ORDERED: Naloxone 0.4 MG/ML INJ IVP PRN (16:02)
[2017-11-12] MEDS ORDERED: Dextrose Gel 15 GM/37.5 ML TUBE PO PRN ×2 (16:02)
[2017-11-12] MEDS ORDERED: INSULIN LISPRO 25 UNIT SQ SCH (16:02)
[2017-11-12] MEDS: Tiotropium 18 MCG inhalation IH SCH (18:14)
[2017-11-12] MEDS: Cholecalciferol (D-3) 1,000 UNIT TABLET PO SCH (18:37)
[2017-11-12] MEDS: ALPRAZolam 1 MG TABLET PO SCH ×2 (18:40→20:49)
[2017-11-12] MEDS: Famotidine 20 MG TABLET PO SCH ×2 (19:09→20:49)
[2017-11-12] MEDS ORDERED: ALPRAZolam 0.25 MG TABLET PO SCH (21:00)
[2017-11-13] MEDS: Insulin LISPRO 300 UNITS/3 ML VIAL SQ SCH ×6 (01:32→21:44)
[2017-11-13 01:40] LABS: ABG Base Excess 5 mEq/L (-2 to 3); ABG HCO3 31 mEq/L (21-27); ABG Oxygen Saturation 92 % (95-98); ABG PCO2 52 mmHg (35-45); ABG PH 7.38 pH Units (7.32-7.45); ABG PO2 67 mmHg (85-104); ABG TCO2 32 mEq/L (20-26); Blood Gas PEEP 6 cm H2O
[2017-11-13] MEDS: Ipratropium/Albuterol Neb 3 ML IH SCH ×5 (03:39→20:56)
[2017-11-13] MEDS: Nystatin POWDER 30 GM BOTTLE TP SCH ×3 (04:27→20:07)
[2017-11-13 05:06] LABS: Hematocrit 27.5 % (35.3-44.9); Hemoglobin 8.6 g/dL (11.5-15.4); Mean Corpuscular HGB Conc 31.3 g/dL (31.6-35.5); Mean Corpuscular Hemoglobin 26.5 pg (28.0-33.3); Mean Corpuscular Volume 84.6 fL (83.0-100.0); Mean Platelet Volume 10.2 fL (9.4-12.4); Platelet Count 193 K/mcL (140-400); Red Blood Count 3.25 M/mcL (3.82-4.97); Red Cell Distribution Width 15.6 % (11.5-14.5)
[2017-11-13 05:27] LABS: Calcium 9.3 mg/dL (8.6-10.3); Potassium 3.9 mEq/L (3.5-5.1)
[2017-11-13] MEDS: *HR* Metoprolol 5 MG/5 ML VIAL IVP PRN (05:56)
[2017-11-13] MEDS: *HR* Heparin 5,000 UNIT/ML VIAL SQ SCH ×3 (05:56→20:06)
[2017-11-13] MEDS ORDERED: *HR* Heparin 10,000 UNIT/10 ML VIAL IV PRN (07:49)
[2017-11-13] MEDS ORDERED: 0.9 % Sodium Chloride 250 ML IVC PRN (07:49)
[2017-11-13] MEDS: Tiotropium 18 MCG inhalation IH SCH (07:51)
[2017-11-13] MEDS: Budesonide/Formoterol 160/4.5 1 PUFF INH IH SCH ×2 (07:52→21:01)
[2017-11-13] MEDS ORDERED: 0.9 % Sodium Chloride 1,000 ML PRIME SCH (08:00)
[2017-11-13] MEDS: NIFEdipine XL (24 HR) 60 MG TAB.ER.24 PO SCH (08:12)
[2017-11-13] MEDS: Cholecalciferol (D-3) 1,000 UNIT TABLET PO SCH (08:12)
[2017-11-13] MEDS: Metoprolol 100 MG TABLET PO SCH (08:13)
[2017-11-13] MEDS: Sennosides/Docusate Sodium TABLET PO SCH ×2 (08:13→20:06)
[2017-11-13] MEDS: Ranolazine 500 MG TAB.ER.12H PO SCH ×2 (08:13→20:05)
[2017-11-13] MEDS: Famotidine 20 MG TABLET PO SCH (08:13)
[2017-11-13] MEDS: hydrALAZINE 25 MG TABLET PO SCH ×3 (08:13→18:20)
[2017-11-13] MEDS: risperiDONE 1 MG TABLET PO SCH (08:13)
[2017-11-13] MEDS: ALPRAZolam 1 MG TABLET PO SCH ×2 (08:13→20:06)
[2017-11-13] MEDS: Furosemide 40 MG/4 ML VIAL IVP SCH (08:14)
[2017-11-13] MEDS: metOLazone 5 MG TABLET PO SCH (08:14)
[2017-11-13] MEDS: Ampicillin/Sulbactam 3,000 MG in 0.9 % Sodium Chloride Mini Bag 100 ML IVPB SCH ×2 (08:14→20:15)
[2017-11-13] MEDS ORDERED: risperiDONE 1 MG TABLET PO SCH (09:00)
--- NOTE | 2017-11-13 10:45 | Internal Med Progress Note ---
Hospitalist Progress Note - Encounter Date of Encounter: 11/13/17 Time of Encounter: 10:45 - Subjective Interval History: 67-year-old female was admitted to the intensive care unit for acute on chronic respiratory failure with hypoxia and hypercapnia, she was extubated 11/08, and transferred to the floor was 11/12. She also has hypertensive emergency with acute on chronic diastolic CHF, acute on chronic renal failure now on temporary hemodialysis. Encephalopathy that was present on admission has resolved. Continues to receive hemodialysis, currently stable. Seen and evaluated at the bedside She reports " I fel crappy", but unable to localize any symptoms Her blood pressure is uncontrolled with peak SBP of 190 this mrn, rechecked at the bedside Will resume patient's home dose of lasix, and continue to monitor She is due for HD this afternoon - Exam Vitals: Temp Pulse Resp BP Pulse Ox 97.9 F 74 16 190/72 91 11/13/17 06:52 11/13/17 06:52 11/13/17 07:53 11/13/17 06:52 11/13/17 07:53 Exam: Gen: Morbidly obese in no form of distress HEENT: Right IJ Shiley catheter, oral mucosa is moist, no cyanosis or jaundice. Chest: CTAB Heart: S1, S2 only, no m/g/r Abdomen: Obese, soft, not tender Skin: No rash Extremities: No edena Neuro: Awake and alert, oriented to place and person, follows commands, no focal deficits at this time. - Assessment and Plan (1) CAD (coronary artery disease) Current Visit: Yes Status: Chronic Assessment and Plan: Patient has history of coronary stent 1 EKG reveals no signs of ischemia Initial troponin < 0.03 Continue home meds (2) HUSAM (obstructive sleep apnea) Current Visit: Yes Status: Chronic Assessment and Plan: CPAP at bedtime (3) Diabetes mellitus Current Visit: Yes Status: Chronic Assessment and Plan: DM type II with Hyperglycemia,Continue SSI FS ACHS (4) COPD exacerbation Current Visit: Yes Status: Acute Assessment and Plan: Hx of COPD on 2L home O2 Extubated 11/11, now on NC only, continue same BiPAP prn Resp failure more likely 2/2 decompensated heart failure over COPD exacerbation (5) Tobacco abuse Current Visit: Yes Status: Chronic Assessment and Plan: Tobacco cessation (6) Morbid obesity Current Visit: Yes Status: Chronic Assessment and Plan: BMI of 45, lifestyle modification (7) DVT prophylaxis Current Visit: No Status: Acute (8) CKD (chronic kidney disease) stage 4, GFR 15-29 ml/min Current Visit: Yes Status: Chronic Assessment and Plan: See acute on chronic renal failure (9) Acute exacerbation of CHF (congestive heart failure) Current Visit: Yes Status: Acute Assessment and Plan: Acute decompensation likely 2/2 hypertensive emergency Given IV albumin followed by IV lasix in ICU BNP - 999 CXR on 11/09 shows cardiomegaly and BL pleural effusions Previous echo on 10/03 showed EF 60-65%, mild LV hypertrophy, valves not assessed , no mention of pulm HTN Fluid overload state is improving Continue metolazone, resume lasix at home dose, 60mg a.m, 40mg p.m, continue HD Continue to monitor (10) Acute on chronic respiratory failure with hypoxia and hypercapnia Current Visit: Yes Status: Acute Assessment and Plan: Acute respiratory failure upon arrival to ED likely 2/2 decompensated heart failure Patient states she is breathing better today Patient extubated on 11/08 Patient on O2 by NC on eval today, reports improved breathing, not in distress Continue lasix, continue HD, continue antibiotics BiPAP at bedtime and prn (11) TAMEKA (acute kidney injury) Current Visit: Yes Status: Acute (12) Hypertensive emergency Current Visit: Yes Status: Acute Assessment and Plan: Improving BP elevated at systolic of low 206/86 with TAMEKA on CKD and resp faiure from [facility] requiring intubation Increased PO nifedipine (ER) to home dose of 120 mg daily Patient currently on PO hydralazine 100 mg TID and PO metoprolol 100 mg BID Continue lasix, continue metolazone TAMEKA on CKD improving-requiring HD [facility] improving Continue to monitor (13) Pneumonia Current Visit: Yes Status: Acute Assessment and Plan: Possibly aspiration in setting of encephalopathy vs HAP with recent hospitalization Continue IV unasyn 3g BID (day 5) Blood culture shows E. fecalis, shaw-sensitive Urine culture shows legionella antigen and strep Antigen negative Repeat blood culture x2 (11/10) negative till date Leukocytosis improving, 12.5 today, from 18.3, continue current management - Time Spent with Patient Total time spent is greater than 50% in coordination of care (as documented) at patient's floor/unit and/or counseling patient: Plan of Care Discussed with: nurse Internal Medicine: Result - Labs CBC & Chem 7: 11/13/17 04:15 11/13/17 04:15 Labs: Short CBC 11/13/17 Range/Units 04:15 WBC 12.7 H (4.3-11.1) K/mcL Hgb 8.6 L (11.5-15.4) g/dL Hct 27.5 L (35.3-44.9) % Plt Count 193 (140-400) K/mcL BMP 11/13/17 04:15 Sodium 136 Potassium 3.9 Chloride 98 Carbon Dioxide 30 H BUN 42 H Creatinine 2.81 H Glucose 153 H Calcium 9.3 - ABG Interpretation ABG results: ABG ABG pH 7.38 pH Units (7.32-7.45) 11/13/17 01:37 ABG pCO2 52 mmHg (35-45) H 11/13/17 01:37 ABG pO2 67 mmHg (85-104) L 11/13/17 01:37 ABG O2 Saturation 92 % (95-98) L 11/13/17 01:37 PT/INR, D-dimer PT 13.3 Seconds (9.4-12.1) H 11/07/17 00:10 Consult Discharge Plan - Plan Referrals: Jay Valenzuela DO [Primary Care Provider] - (1) CAD (coronary artery disease) Qualifiers: Coronary Disease-Associated Artery/Lesion type: [place] artery [place] vs. transplanted heart: [place] heart Associated angina: without angina Qualified Code(s): I25.10 - Atherosclerotic heart disease of [place] coronary artery without angina pectoris (3) Diabetes mellitus Qualifiers: Diabetes mellitus type: type 2 Diabetes mellitus care home insulin use: with terminal block assembler use Diabetes mellitus complication status: with kidney complications Diabetes mellitus complication detail: with chronic kidney disease Chronic kidney disease stage: stage 4 (severe) Qualified Code(s): E11.22 - Type 2 diabetes mellitus with diabetic chronic kidney disease; N18.4 - Chronic kidney disease, stage 4 (severe); Z79.4 - [facility]FP (current) use of insulin (9) Acute exacerbation of CHF (congestive heart failure) Qualifiers: Heart failure type: diastolic Qualified Code(s): I50.9 - Heart failure, unspecified (13) Pneumonia Qualifiers: Pneumonia type: due to unspecified organism Laterality: unspecified laterality Lung location: unspecified part of lung Qualified Code(s): J18.9 - Pneumonia, unspecified organism
[2017-11-13] MEDS: Furosemide 40 MG TABLET PO SCH ×2 (12:48→18:20)
[2017-11-13] MEDS ORDERED: 0.9 % Sodium Chloride 1,000 ML ONE (14:21)
--- NOTE | 2017-11-13 17:02 | Nephrology Progress Note ---
Date of Encounter: 11/13/17 Time of Encounter: 12:00 - Assessment and Plan (1) TAMEKA (acute kidney injury) Current Visit: Yes Status: Acute [place] plan third HD session today and afterwards wait for signs of renal recovery tomorrow and over the weekend UOP good at 1045cc in the past 24hrs Continue to avoid nephrotoxins if possible Lytes stable (2) CKD (chronic kidney disease) stage 4, GFR 15-29 ml/min Current Visit: Yes Status: Chronic Baseline GFR appears to be in the 20s since july (3) Acute exacerbation of CHF (congestive heart failure) Current Visit: No Status: Acute Strict I/Os Continue fluid restriction Qualifiers: Heart failure type: diastolic Qualified Code(s): I50.33 - Acute on chronic diastolic (congestive) heart failure (4) Acute and chronic respiratory failure with hypercapnia Current Visit: Yes Status: Acute Improving with continued UF, will monitor. Still not great given multiple co- morbidities including COPD (5) Hypertensive urgency Current Visit: Yes Status: Acute Agree with current BP regimen. UF on HD should help volume mediated BP as well Subjective Principal diagnosis: Acute respiratory failure Interval history: Pt seen and examined now transferred to [facility] and per nurse appears lethargic though breathing improved on nasl cannula. s/p 2 consecutive HD sessions with approx. UF of 10lbs and third session planned today Objective - Vital Signs Vital signs: Vital Signs Temp Pulse Resp BP Pulse Ox 11/13/17 16:35 166/79 11/13/17 16:20 189/86 11/13/17 16:05 173/60 11/13/17 15:50 140/75 11/13/17 15:35 167/96 11/13/17 15:20 190/89 11/13/17 15:05 207/76 11/13/17 14:50 169/96 11/13/17 14:35 171/76 11/13/17 14:20 210/96 11/13/17 14:05 205/87 11/13/17 13:50 210/87 11/13/17 13:35 188/80 11/13/17 13:15 97.0 F L 18 187/77 11/13/17 12:20 97.8 F 80 19 177/68 94 11/13/17 11:47 18 95 11/13/17 07:53 16 91 11/13/17 06:52 97.9 F 74 18 190/72 94 11/13/17 05:52 87 175/64 95 11/13/17 04:15 13 93 11/12/17 23:43 75 156/64 91 11/12/17 23:14 15 94 11/12/17 21:28 92 11/12/17 19:55 14 95 11/12/17 18:56 92 11/12/17 18:35 97.7 F 80 18 190/84 95 Intake and Output 11/13/17 11/13/17 11/13/17 07:59 15:59 23:59 Intake Total 940 / 940 360 / 360 Balance 940 / 940 360 / 360 Intake: IV Fluids 100 / 100 Unasyn 3,000 MG In 0.9 % Sodium 100 / 100 Chloride (Mini-Bag +) 100 ML @ 200 mls/hr IVPB BID [facility] Rx#: [id number] Oral 240 / 240 360 / 360 Intake, Rinseback and Flushes 600 / 600 Other: Meal Breakfast Percent of Meal Consumed 0% Stool Size Large Smear Stool Consistency soft Stool Color Brown # Voids 1 1 # Bowel Movements 1 1 Blood Glucose* 144 175 Hemodialysis Net Fluid Removed [id number] (mL) - General Appearance General appearance: Present: chronically ill, fatigue EENT: Present: ATNC, mucous membranes moist Neck: Present: no JVD, supple Additional Comments: improved areation ant bilat Cardiology: Present: edema (improved), normal S1, normal S2 Dialysis Vascular Access: Venous Catheter (temp IJ) Gastrointestinal: Present: no tenderness, no guarding, obese Integumentary: Present: warm and dry Neurologic: Present: no focal deficit Musculoskeletal: Present: no deformities Psychiatric: Present: mood/affect appropriate, cooperative - Lab 11/13/17 04:15 11/13/17 04:15 Most recent lab results ABG pH 7.38 pH Units (7.32-7.45) 11/13/17 01:37 ABG pCO2 52 mmHg (35-45) H 11/13/17 01:37 ABG pO2 67 mmHg (85-104) L 11/13/17 01:37 ABG HCO3 31 mEq/L (21-27) H 11/13/17 01:37 ABG O2 Saturation 92 % (95-98) L 11/13/17 01:37 Calcium 9.3 mg/dL (8.6-10.3) 11/13/17 04:15 Phosphorus 4.8 mg/dL (2.7-4.5) H 11/09/17 03:05 Magnesium 1.8 mg/dL (1.6-2.6) 11/09/17 03:05 Urine Creatinine 86 mg/dL 11/09/17 18:00 Urine Sodium 21.8 mEq/L 11/09/17 18:00 Urine Total Protein 395 mg/dL (1-14) H 11/09/17 18:00 Consult Discharge Plan - Plan Referrals: Jay Valenzuela DO [Primary Care Provider] -
[2017-11-14] MEDS: Ipratropium/Albuterol Neb 3 ML IH SCH ×7 (00:48→23:30)
[2017-11-14 03:25] LABS: Hematocrit 27.2 % (35.3-44.9); Hemoglobin 8.5 g/dL (11.5-15.4); Immature Platelets 2.1 % (1.1-6.1); Mean Corpuscular HGB Conc 31.3 g/dL (31.6-35.5); Mean Corpuscular Hemoglobin 26.2 pg (28.0-33.3); Mean Corpuscular Volume 83.7 fL (83.0-100.0); Mean Platelet Volume 9.1 fL (9.4-12.4); Red Blood Count 3.25 M/mcL (3.82-4.97); Red Cell Distribution Width 15.4 % (11.5-14.5)
[2017-11-14 03:43] LABS: Calcium 8.8 mg/dL (8.6-10.3); Potassium 3.4 mEq/L (3.5-5.1)
[2017-11-14] MEDS: *HR* Heparin 5,000 UNIT/ML VIAL SQ SCH ×3 (05:30→21:30)
[2017-11-14] MEDS: *HR* Metoprolol 5 MG/5 ML VIAL IVP PRN (05:33)
[2017-11-14] MEDS ORDERED: *HR* Metoprolol 5 MG/5 ML VIAL IVP ONE ×2 (06:26→06:30)
--- NOTE | 2017-11-14 07:20 | Internal Med Progress Note ---
Hospitalist Progress Note - Encounter Date of Encounter: 11/14/17 Time of Encounter: 07:15 - Exam Vitals: Temp Pulse Resp BP Pulse Ox 98.0 F 83 18 193/71 95 11/14/17 04:55 11/14/17 06:28 11/14/17 04:55 11/14/17 06:28 11/14/17 04:55 Exam: Gen: Morbidly obese in no form of distress HEENT: Right IJ Shiley catheter, oral mucosa is moist, no cyanosis or jaundice. Chest: CTAB Heart: S1, S2 only, no m/g/r Abdomen: Obese, soft, not tender Skin: No rash Extremities: No edena Neuro: Awake and alert, oriented to place and person, follows commands, no focal deficits at this time. - Assessment and Plan (1) Acute exacerbation of CHF (congestive heart failure) Current Visit: Yes Status: Acute Assessment and Plan: Acute decompensation likely 2/2 hypertensive emergency Given IV albumin followed by IV lasix in ICU BNP - 999 CXR on 11/09 shows cardiomegaly and BL pleural effusions Previous echo on 10/03 showed EF 60-65%, mild LV hypertrophy, valves not assessed , no mention of pulm HTN Fluid overload state is improving Continue metolazone, resume lasix at home dose, 60mg a.m, 40mg p.m, continue HD 11/14- Stable. Improving. Continue diuresis and blood pressure control (2) Hypertensive emergency Current Visit: Yes Status: Acute Assessment and Plan: Improving BP elevated at systolic of low 206/86 with TAMEKA on CKD and resp faiure from CHFE requiring intubation Increased PO nifedipine (ER) to home dose of 120 mg daily Patient currently on PO hydralazine 100 mg TID and PO coreg 25mg po bID Continue lasix, continue metolazone TAMEKA on CKD improving-requiring HD CHF improving Continue to monitor (3) TAMEKA (acute kidney injury) Current Visit: Yes Status: Acute Assessment and Plan: On hemodialysis. renal following (4) Acute on chronic respiratory failure with hypoxia and hypercapnia Current Visit: Yes Status: Acute Assessment and Plan: Acute respiratory failure upon arrival to ED likely 2/2 decompensated heart failure Patient states she is breathing better today Patient extubated on 11/08 Patient on O2 by [place] , reports improved breathing, not in distress Continue lasix, continue HD, continue antibiotics BiPAP at bedtime and prn (5) CAD (coronary artery disease) Current Visit: Yes Status: Chronic Assessment and Plan: Patient has history of coronary stent 1 EKG reveals no signs of ischemia Initial troponin < 0.03 Continue home meds (6) HUSAM (obstructive sleep apnea) Current Visit: Yes Status: Chronic Assessment and Plan: CPAP at bedtime (7) Diabetes mellitus Current Visit: Yes Status: Chronic Assessment and Plan: DM type II with Hyperglycemia,Continue SSI FS ACHS (8) COPD exacerbation Current Visit: Yes Status: Acute Assessment and Plan: Hx of COPD on 2L home O2 Extubated 11/11, now on NC only, continue same BiPAP prn Resp failure more likely 2/2 decompensated heart failure over COPD exacerbation (9) Tobacco abuse Current Visit: Yes Status: Chronic Assessment and Plan: Tobacco cessation (10) Morbid obesity Current Visit: Yes Status: Chronic Assessment and Plan: BMI of 45, lifestyle modification (11) CKD (chronic kidney disease) stage 4, GFR 15-29 ml/min Current Visit: Yes Status: Chronic Assessment and Plan: See acute on chronic renal failure (12) Pneumonia Current Visit: Yes Status: Acute Assessment and Plan: Possibly aspiration in setting of encephalopathy vs HAP with recent hospitalization Continue IV unasyn 3g BID (day 6). Plan to complete 7 day course Blood culture shows E. fecalis, shaw-sensitive Urine culture shows legionella antigen and strep Antigen negative Repeat blood culture x2 (11/10) negative till date Leukocytosis improving, continue current management (13) DVT prophylaxis Current Visit: No Status: Acute Assessment and Plan: Heparin subcutaneous TID - Time Spent with Patient Total time spent is greater than 50% in coordination of care (as documented) at patient's floor/unit and/or counseling patient: Internal Medicine: Result - Labs CBC & Chem 7: 11/14/17 03:10 11/14/17 03:10 Labs: Short CBC 11/14/17 Range/Units 03:10 WBC 12.6 H (4.3-11.1) K/mcL Hgb 8.5 L (11.5-15.4) g/dL Hct 27.2 L (35.3-44.9) % Plt Count 202 (140-400) K/mcL BMP 11/14/17 03:10 Sodium 137 Potassium 3.4 L Chloride 98 Carbon Dioxide 31 H BUN 26 H Creatinine 2.12 H Glucose 140 H Calcium 8.8 - ABG Interpretation ABG results: ABG ABG pH 7.38 pH Units (7.32-7.45) 11/13/17 01:37 ABG pCO2 52 mmHg (35-45) H 11/13/17 01:37 ABG pO2 67 mmHg (85-104) L 11/13/17 01:37 ABG O2 Saturation 92 % (95-98) L 11/13/17 01:37 PT/INR, D-dimer PT 13.3 Seconds (9.4-12.1) H 11/07/17 00:10 Consult Discharge Plan - Plan Referrals: Jay Valenzuela DO [Primary Care Provider] - (1) Acute exacerbation of CHF (congestive heart failure) Qualifiers: Heart failure type: diastolic Qualified Code(s): I50.33 - Acute on chronic diastolic (congestive) heart failure (5) CAD (coronary artery disease) Qualifiers: Coronary Disease-Associated Artery/Lesion type: [place] artery [place] vs. transplanted heart: [place] heart Associated angina: without angina Qualified Code(s): I25.10 - Atherosclerotic heart disease of [place] coronary artery without angina pectoris (7) Diabetes mellitus Qualifiers: Diabetes mellitus type: type 2 Diabetes mellitus snf insulin use: with [facility] former use Diabetes mellitus complication status: with kidney complications Diabetes mellitus complication detail: with chronic kidney disease Chronic kidney disease stage: stage 4 (severe) Qualified Code(s): E11.22 - Type 2 diabetes mellitus with diabetic chronic kidney disease; N18.4 - Chronic kidney disease, stage 4 (severe); Z79.4 - [place] (current) use of insulin (12) Pneumonia Qualifiers: Pneumonia type: due to unspecified organism Laterality: unspecified laterality Lung location: unspecified part of lung Qualified Code(s): J18.9 - Pneumonia, unspecified organism
[2017-11-14] MEDS: Sennosides/Docusate Sodium TABLET PO SCH ×2 (07:27→21:29)
[2017-11-14] MEDS: Insulin LISPRO 300 UNITS/3 ML VIAL SQ SCH ×4 (07:58→21:28)
[2017-11-14] MEDS: NIFEdipine XL (24 HR) 60 MG TAB.ER.24 PO SCH (08:00)
[2017-11-14] MEDS: Furosemide 40 MG TABLET PO SCH ×2 (08:00→15:52)
[2017-11-14] MEDS: Ranolazine 500 MG TAB.ER.12H PO SCH ×2 (08:00→21:29)
[2017-11-14] MEDS: Cholecalciferol (D-3) 1,000 UNIT TABLET PO SCH (08:00)
[2017-11-14] MEDS: metOLazone 5 MG TABLET PO SCH (08:00)
[2017-11-14] MEDS: hydrALAZINE 25 MG TABLET PO SCH ×3 (08:01→21:30)
[2017-11-14] MEDS: Ampicillin/Sulbactam 3,000 MG in 0.9 % Sodium Chloride Mini Bag 100 ML IVPB SCH ×2 (08:01→21:30)
[2017-11-14] MEDS: Famotidine 20 MG TABLET PO SCH (08:01)
[2017-11-14] MEDS: risperiDONE 1 MG TABLET PO SCH (08:01)
[2017-11-14] MEDS: ALPRAZolam 1 MG TABLET PO SCH ×2 (08:01→21:29)
[2017-11-14] MEDS: Budesonide/Formoterol 160/4.5 1 PUFF INH IH SCH ×2 (08:05→20:16)
[2017-11-14] MEDS: Nystatin POWDER 30 GM BOTTLE TP SCH ×2 (08:21→21:31)
[2017-11-14] MEDS: *HR* Labetalol 20 MG/4 ML SYRINGE IVP PRN ×3 (11:43→12:24)
--- NOTE | 2017-11-14 11:50 | Nephrology Progress Note ---
Date of Encounter: 11/14/17 Time of Encounter: 11:45 - Assessment and Plan (1) TAMEKA (acute kidney injury) Current Visit: Yes Status: Acute s/p Hd yesterday for the third session. will hold off on any further Hd this weekend and reasses by thursday if still needed SCr noted at 2.12, GFR 23, will monitor for signs of renal recovery UOp documeneted at 1045cc in the past 24hrs, continue diuretics Continue to avoid nephrotoxins if possible (2) CKD (chronic kidney disease) stage 4, GFR 15-29 ml/min Current Visit: Yes Status: Chronic Baseline GFR appears to be in the 20s since july (3) Acute exacerbation of CHF (congestive heart failure) Current Visit: No Status: Acute Strict I/Os Continue fluid restriction, Pt already received over 2liters today, not clear why Qualifiers: Heart failure type: diastolic Qualified Code(s): I50.33 - Acute on chronic diastolic (congestive) heart failure (4) Acute and chronic respiratory failure with hypercapnia Current Visit: Yes Status: Acute Improving with continued UF, will monitor. Still not great given multiple co- morbidities including COPD (5) Hypertensive urgency Current Visit: Yes Status: Acute Agree with current BP regimen. UF on HD should help volume mediated BP as well Subjective Principal diagnosis: Acute respiratory failure Interval history: Pt seen and examined s/p 3 consecutive Hd session with a total of 8kgs (approx. 18lbs) fluids removed Objective - Vital Signs Vital signs: Vital Signs Temp Pulse Resp BP Pulse Ox 11/14/17 11:33 188/93 11/14/17 10:50 97.6 F 80 20 172/65 95 11/14/17 10:15 172/65 11/14/17 08:07 16 96 11/14/17 07:11 98.8 F 81 18 191/72 94 11/14/17 06:28 83 193/71 11/14/17 04:55 98.0 F 81 18 197/75 95 11/14/17 04:23 15 94 11/14/17 01:00 98.8 F 77 16 143/83 97 11/14/17 00:49 16 98 11/13/17 20:56 20 143/83 98 11/13/17 19:39 98.0 F 80 18 143/83 94 11/13/17 17:55 98.7 F 82 20 181/72 97 11/13/17 17:21 97.3 F L 18 177/68 11/13/17 16:50 171/69 11/13/17 16:35 166/79 11/13/17 16:20 189/86 11/13/17 16:05 173/60 11/13/17 15:50 140/75 11/13/17 15:35 167/96 11/13/17 15:20 190/89 11/13/17 15:05 207/76 11/13/17 14:50 169/96 11/13/17 14:35 171/76 11/13/17 14:20 210/96 11/13/17 14:05 205/87 11/13/17 13:50 210/87 11/13/17 13:35 188/80 11/13/17 13:15 97.0 F L 18 187/77 11/13/17 12:20 97.8 F 80 19 177/68 94 Intake and Output 11/13/17 11/14/17 11/14/17 23:59 07:59 15:59 Intake Total 700 / 700 0 / 0 2280 / 2280 Output Total 3600 / 3600 Balance -2900 / -2900 0 / 0 2280 / 2280 Intake: IV Fluids 100 / 100 1100 / 1100 Unasyn 3,000 MG In 0.9 % Sodium 100 / 100 100 / 100 Chloride (Mini-Bag +) 100 ML @ 200 mls/hr IVPB BID [facility] Rx#: [id number] 0.9 % Sodium Chloride 1,000 ML 1000 / 1000 @ As Directed PRIME .Q0M [facility] Rx #:[id number] Oral 600 / 600 0 / 0 1180 / 1180 Output: Urine 0 / 0 Total Dialysis (HD) Output 3600 / 3600 Other: Meal Breakfast Percent of Meal Consumed 100% Stool Size Moderate Moderate Stool Consistency soft soft Stool Color Brown # Voids 1 0 # Bowel Movements 1 # Bowel Movement Diapers 1 Weight 126.2 kg Blood Glucose* 170 135 224 Hemodialysis Net Fluid Removed 3000 (mL) Patient Weight 11/14/17 23:59 Weight 126.2 kg - General Appearance General appearance: Present: chronically ill, fatigue EENT: Present: ATNC, mucous membranes moist Neck: Present: no JVD, supple Respiratory: Present: clear Cardiology: Present: edema (improved), normal S1, normal S2 Dialysis Vascular Access: Venous Catheter (temp IJ) Gastrointestinal: Present: no tenderness, no guarding, obese Integumentary: Present: warm and dry Neurologic: Present: no focal deficit Musculoskeletal: Present: no deformities Psychiatric: Present: mood/affect appropriate, cooperative - Lab 11/15/17 05:00 11/15/17 04:00 Most recent lab results ABG pH 7.38 pH Units (7.32-7.45) 11/13/17 01:37 ABG pCO2 52 mmHg (35-45) H 11/13/17 01:37 ABG pO2 67 mmHg (85-104) L 11/13/17 01:37 ABG HCO3 31 mEq/L (21-27) H 11/13/17 01:37 ABG O2 Saturation 92 % (95-98) L 11/13/17 01:37 Calcium 8.8 mg/dL (8.6-10.3) 11/14/17 03:10 Phosphorus 4.8 mg/dL (2.7-4.5) H 11/09/17 03:05 Magnesium 1.8 mg/dL (1.6-2.6) 11/09/17 03:05 Urine Creatinine 86 mg/dL 11/09/17 18:00 Urine Sodium 21.8 mEq/L 11/09/17 18:00 Urine Total Protein 395 mg/dL (1-14) H 11/09/17 18:00 Consult Discharge Plan - Plan Referrals: Jay Valenzuela DO [Primary Care Provider] -
[2017-11-15] MEDS: Ipratropium/Albuterol Neb 3 ML IH SCH ×6 (04:38→23:55)
[2017-11-15] MEDS: *HR* Heparin 5,000 UNIT/ML VIAL SQ SCH ×3 (05:34→21:37)
[2017-11-15 05:40] LABS: Hematocrit 27.6 % (35.3-44.9); Hemoglobin 8.8 g/dL (11.5-15.4); Mean Corpuscular HGB Conc 31.9 g/dL (31.6-35.5); Mean Corpuscular Hemoglobin 26.4 pg (28.0-33.3); Mean Corpuscular Volume 82.9 fL (83.0-100.0); Mean Platelet Volume 9.1 fL (9.4-12.4); Platelet Count 166 K/mcL (140-400); Red Blood Count 3.33 M/mcL (3.82-4.97)
[2017-11-15 06:00] LABS: Calcium 9.1 mg/dL (8.6-10.3); Potassium 3.5 mEq/L (3.5-5.1)
--- NOTE | 2017-11-15 07:24 | Internal Med Progress Note ---
Hospitalist Progress Note - Encounter Date of Encounter: 11/15/17 Time of Encounter: 07:20 - Exam Vitals: Temp Pulse Resp BP Pulse Ox 98.1 F 79 19 176/65 95 11/15/17 07:09 11/15/17 07:09 11/15/17 07:09 11/15/17 07:09 11/15/17 07:09 Exam: Gen: Morbidly obese in no form of distress HEENT: Right IJ Shiley catheter, oral mucosa is moist, no cyanosis or jaundice. Chest: CTAB Heart: S1, S2 only, no m/g/r Abdomen: Obese, soft, not tender Skin: No rash Extremities: No edena Neuro: Awake and alert, oriented to place and person, follows commands, no focal deficits at this time. - Assessment and Plan (1) Acute exacerbation of CHF (congestive heart failure) Current Visit: Yes Status: Acute Assessment and Plan: Acute decompensation likely 2/2 hypertensive emergency CXR on 11/09 shows cardiomegaly and BL pleural effusions Previous echo on 10/03 showed EF 60-65%, mild LV hypertrophy, valves not assessed , no mention of pulm HTN Fluid overload state is improving Continue metolazone, resume lasix at home dose, 60mg a.m, 40mg p.m, continue HD 11/15- Clonidine added to BP regimen of nifedipine, coreg and hydralzine to improve BP control. Blood pressures have been persistently in the 180s -190s. Continue diuresis and blood pressure control (2) Acute on chronic respiratory failure with hypoxia and hypercapnia Current Visit: Yes Status: Acute Assessment and Plan: Acute respiratory failure upon arrival to ED likely 2/2 decompensated heart failure Patient states she is breathing better today Patient extubated on 11/08 Patient on O2 by [place] , reports improved breathing, not in distress Continue lasix, continue HD, continue antibiotics BiPAP at bedtime and prn (3) Hypertensive emergency Current Visit: Yes Status: Acute Assessment and Plan: BP elevated at systolic of low 206/86 with TAMEKA on CKD and resp failure from CHFE requiring intubation Increased PO nifedipine (ER) to home dose of 120 mg daily Patient currently on PO hydralazine 100 mg TID, PO coreg 25mg po bID, nifedipine 120mg po daily. will add clonidine 01.mg TD for better BP control Continue lasix, continue metolazone TAMEKA on CKD improving-requiring HD CHF improving Continue to monitor (4) TAMEKA (acute kidney injury) Current Visit: Yes Status: Acute Assessment and Plan: TAMEKA on CKD stage 4. On hemodialysis. renal following. Will assess for continued need for hemodialysis Monitor urine output (5) CAD (coronary artery disease) Current Visit: Yes Status: Chronic Assessment and Plan: Patient has history of coronary stent 1 EKG reveals no signs of ischemia Initial troponin < 0.03 Continue home meds (6) HUSAM (obstructive sleep apnea) Current Visit: Yes Status: Chronic Assessment and Plan: CPAP at bedtime (7) Diabetes mellitus Current Visit: Yes Status: Chronic Assessment and Plan: DM type II with Hyperglycemia,Continue SSI FS ACHS (8) COPD exacerbation Current Visit: Yes Status: Acute Assessment and Plan: Hx of COPD on 2L home O2 Extubated 11/11, now on NC only, continue same BiPAP prn Resp failure more likely 2/2 decompensated heart failure over COPD exacerbation (9) Tobacco abuse Current Visit: Yes Status: Chronic Assessment and Plan: Tobacco cessation (10) Morbid obesity Current Visit: Yes Status: Chronic Assessment and Plan: BMI of 45, lifestyle modification (11) CKD (chronic kidney disease) stage 4, GFR 15-29 ml/min Current Visit: Yes Status: Chronic Assessment and Plan: See acute on chronic renal failure (12) Pneumonia Current Visit: Yes Status: Acute Assessment and Plan: Possibly aspiration in setting of encephalopathy vs HAP with recent hospitalization Completed course of unasyn Blood culture shows E. fecalis, shaw-sensitive Repeat blood culture x2 (11/10) negative till date Leukocytosis improved (13) DVT prophylaxis Current Visit: No Status: Acute Assessment and Plan: Heparin subcutaneous TID - Time Spent with Patient Total time spent is greater than 50% in coordination of care (as documented) at patient's floor/unit and/or counseling patient: Internal Medicine: Result - Labs CBC & Chem 7: 11/15/17 05:00 11/15/17 04:00 Labs: Short CBC 11/15/17 Range/Units 05:00 WBC 12.3 H (4.3-11.1) K/mcL Hgb 8.8 L (11.5-15.4) g/dL Hct 27.6 L (35.3-44.9) % Plt Count 166 (140-400) K/mcL BMP 11/15/17 04:00 Sodium 136 Potassium 3.5 Chloride 97 L Carbon Dioxide 31 H BUN 46 H Creatinine 2.91 H Glucose 151 H Calcium 9.1 - ABG Interpretation ABG results: ABG ABG pH 7.38 pH Units (7.32-7.45) 11/13/17 01:37 ABG pCO2 52 mmHg (35-45) H 11/13/17 01:37 ABG pO2 67 mmHg (85-104) L 11/13/17 01:37 ABG O2 Saturation 92 % (95-98) L 11/13/17 01:37 PT/INR, D-dimer PT 13.3 Seconds (9.4-12.1) H 11/07/17 00:10 Consult Discharge Plan - Plan Referrals: Jay Valenzuela DO [Primary Care Provider] - (1) Acute exacerbation of CHF (congestive heart failure) Qualifiers: Heart failure type: diastolic Qualified Code(s): I50.33 - Acute on chronic diastolic (congestive) heart failure (5) CAD (coronary artery disease) Qualifiers: Coronary Disease-Associated Artery/Lesion type: [place] artery [place] vs. transplanted heart: [place] heart Associated angina: without angina Qualified Code(s): I25.10 - Atherosclerotic heart disease of [place] coronary artery without angina pectoris (7) Diabetes mellitus Qualifiers: Diabetes mellitus type: type 2 Diabetes mellitus intermediate card tender insulin use: with [facility]p use Diabetes mellitus complication status: with kidney complications Diabetes mellitus complication detail: with chronic kidney disease Chronic kidney disease stage: stage 4 (severe) Qualified Code(s): E11.22 - Type 2 diabetes mellitus with diabetic chronic kidney disease; N18.4 - Chronic kidney disease, stage 4 (severe); Z79.4 - [place] (current) use of insulin (12) Pneumonia Qualifiers: Pneumonia type: due to unspecified organism Laterality: unspecified laterality Lung location: unspecified part of lung Qualified Code(s): J18.9 - Pneumonia, unspecified organism
[2017-11-15] MEDS: Budesonide/Formoterol 160/4.5 1 PUFF INH IH SCH ×2 (07:57→20:29)
[2017-11-15] MEDS: Insulin LISPRO 300 UNITS/3 ML VIAL SQ SCH ×4 (09:44→21:37)
[2017-11-15] MEDS: Cholecalciferol (D-3) 1,000 UNIT TABLET PO SCH (09:44)
[2017-11-15] MEDS: Ranolazine 500 MG TAB.ER.12H PO SCH ×2 (09:44→21:36)
[2017-11-15] MEDS: hydrALAZINE 25 MG TABLET PO SCH ×3 (09:45→21:36)
[2017-11-15] MEDS: risperiDONE 1 MG TABLET PO SCH (09:45)
[2017-11-15] MEDS: metOLazone 5 MG TABLET PO SCH (09:45)
[2017-11-15] MEDS: Sennosides/Docusate Sodium TABLET PO SCH ×2 (09:45→21:36)
[2017-11-15] MEDS: ALPRAZolam 1 MG TABLET PO SCH ×2 (09:45→21:36)
[2017-11-15] MEDS: cloNIDine HCl 0.1 MG TABLET PO SCH ×3 (09:45→21:37)
[2017-11-15] MEDS: Famotidine 20 MG TABLET PO SCH (09:45)
[2017-11-15] MEDS: NIFEdipine XL (24 HR) 60 MG TAB.ER.24 PO SCH (09:45)
[2017-11-15] MEDS: Furosemide 40 MG TABLET PO SCH ×2 (09:46→17:40)
[2017-11-15] MEDS: Nystatin POWDER 30 GM BOTTLE TP SCH ×2 (15:52→21:37)
--- NOTE | 2017-11-15 16:37 | Nephrology Progress Note ---
Date of Encounter: 11/15/17 Time of Encounter: 15:00 - Assessment and Plan (1) TAMEKA (acute kidney injury) Current Visit: Yes Status: Acute SCr worse at 2.91 after a day off HD, hence no signs of renal recovery Discussed possible permcath need if renal fxn worsens again tomorrow Continue po fluids Continue to avoid nephtoxins if possible UOp noted at 650cc in the past 24hrs which is acceptable but not great (2) CKD (chronic kidney disease) stage 4, GFR 15-29 ml/min Current Visit: Yes Status: Chronic (3) Acute exacerbation of CHF (congestive heart failure) Current Visit: No Status: Acute Qualifiers: Heart failure type: diastolic Qualified Code(s): I50.33 - Acute on chronic diastolic (congestive) heart failure (4) Acute and chronic respiratory failure with hypercapnia Current Visit: Yes Status: Acute (5) Hypertensive urgency Current Visit: Yes Status: Acute Pt appears to have isolated systolic hypertension which calcium channel yary are helpful with Clonidine addition acceptable but will take care not to decrease diastolic numbers till low as running around 60-70s Subjective Principal diagnosis: Acute respiratory failure Interval history: Pt seen and examined feels good with no complaints. denies SOB. BP readings still around 180s/60s Objective - Vital Signs Vital signs: Vital Signs Temp Pulse Resp BP Pulse Ox 11/15/17 16:27 97.6 F 77 19 170/62 97 11/15/17 16:13 16 95 11/15/17 11:37 97.7 F 71 17 184/68 97 11/15/17 11:14 16 98 11/15/17 07:57 16 94 11/15/17 07:09 98.1 F 79 19 176/65 95 11/15/17 06:10 190/75 11/15/17 04:39 12 97 11/14/17 23:31 16 98 11/14/17 22:09 97 11/14/17 20:35 98.0 F 89 17 172/69 95 11/14/17 20:18 18 94 Intake and Output 11/15/17 11/15/17 11/15/17 07:59 15:59 23:59 Intake Total 240 / 240 Output Total 1300 / 1300 Balance -1060 / -1060 Intake: Oral 240 / 240 Output: Urine 1300 / 1300 Other: Meal Lunch Percent of Meal Consumed 50% Blood Glucose* 144 131 - General Appearance General appearance: Present: chronically ill EENT: Present: ATNC, mucous membranes moist Neck: Present: no JVD, supple Respiratory: Present: clear Cardiology: Present: edema (improved), normal S1, normal S2 Dialysis Vascular Access: Venous Catheter (temp IJ line) Gastrointestinal: Present: no tenderness, no guarding, obese Integumentary: Present: warm and dry Neurologic: Present: no focal deficit Musculoskeletal: Present: no deformities Psychiatric: Present: mood/affect appropriate, cooperative - Lab 11/15/17 05:00 11/15/17 04:00 Most recent lab results ABG pH 7.38 pH Units (7.32-7.45) 11/13/17 01:37 ABG pCO2 52 mmHg (35-45) H 11/13/17 01:37 ABG pO2 67 mmHg (85-104) L 11/13/17 01:37 ABG HCO3 31 mEq/L (21-27) H 11/13/17 01:37 ABG O2 Saturation 92 % (95-98) L 11/13/17 01:37 Calcium 9.1 mg/dL (8.6-10.3) 11/15/17 04:00 Phosphorus 4.8 mg/dL (2.7-4.5) H 11/09/17 03:05 Magnesium 1.8 mg/dL (1.6-2.6) 11/09/17 03:05 Urine Creatinine 86 mg/dL 11/09/17 18:00 Urine Sodium 21.8 mEq/L 11/09/17 18:00 Urine Total Protein 395 mg/dL (1-14) H 11/09/17 18:00 Consult Discharge Plan - Plan Referrals: Jay Valenzuela DO [Primary Care Provider] -
[2017-11-16] MEDS: Ipratropium/Albuterol Neb 3 ML IH SCH ×5 (04:29→20:16)
[2017-11-16 04:59] LABS: Hematocrit 25.8 % (35.3-44.9); Hemoglobin 8.2 g/dL (11.5-15.4); Mean Corpuscular HGB Conc 31.8 g/dL (31.6-35.5); Mean Corpuscular Hemoglobin 26.5 pg (28.0-33.3); Mean Corpuscular Volume 83.5 fL (83.0-100.0); Mean Platelet Volume 9.6 fL (9.4-12.4); Platelet Count 166 K/mcL (140-400); Red Blood Count 3.09 M/mcL (3.82-4.97); Red Cell Distribution Width 15.2 % (11.5-14.5)
[2017-11-16 05:24] LABS: Calcium 9.2 mg/dL (8.6-10.3); Potassium 3.3 mEq/L (3.5-5.1)
[2017-11-16] MEDS: *HR* Heparin 5,000 UNIT/ML VIAL SQ SCH ×3 (06:26→20:54)
--- NOTE | 2017-11-16 07:33 | Internal Med Progress Note ---
Hospitalist Progress Note - Encounter Date of Encounter: 11/16/17 Time of Encounter: 07:30 - Exam Vitals: Temp Pulse Resp BP Pulse Ox 97.7 F 80 19 188/76 96 11/16/17 07:24 11/16/17 07:24 11/16/17 07:24 11/16/17 07:24 11/16/17 07:24 Exam: Gen: Morbidly obese in no form of distress HEENT: Right IJ Shiley catheter, oral mucosa is moist, no cyanosis or jaundice. Chest: CTAB Heart: S1, S2 only, no m/g/r Abdomen: Obese, soft, not tender Skin: No rash Extremities: No edena Neuro: Awake and alert, oriented to place and person, follows commands, no focal deficits at this time. - Assessment and Plan (1) Acute exacerbation of CHF (congestive heart failure) Current Visit: Yes Status: Acute Assessment and Plan: Acute decompensation likely 2/2 hypertensive emergency CXR on 11/09 shows cardiomegaly and BL pleural effusions Previous echo on 10/03 showed EF 60-65%, mild LV hypertrophy, valves not assessed , no mention of pulm HTN Fluid overload state has improved. Continue metolazone, resume lasix at home dose and continue HD 11/16- Clonidine added to BP regimen of nifedipine, coreg and hydralzine to improve BP control. Blood pressures had been persistently in the 180s -190s. Monitor to keep diastolic sin the 60s-70s. Continue diuresis and blood pressure control (2) Acute on chronic respiratory failure with hypoxia and hypercapnia Current Visit: Yes Status: Acute Assessment and Plan: Acute respiratory failure upon arrival to ED likely 2/2 decompensated heart failure Patient extubated on 11/08 Patient on 3L O2 by ME , reports improved breathing, not in distress BiPAP at bedtime and prn (3) Hypertensive emergency Current Visit: Yes Status: Acute Assessment and Plan: BP elevated at systolic of low 206/86 with TAMEKA on CKD and resp failure from CHFE requiring intubation Increased PO nifedipine (ER) to home dose of 120 mg daily Patient currently on PO hydralazine 100 mg TID, PO coreg 25mg po bID, nifedipine 120mg po daily. Added clonidine 01.mg TD for better BP control, monitor diastolics per renal recs Continue lasix, continue metolazone TAMEKA on CKD stage 4-requiring HD CHF improving Continue to monitor (4) TAMEKA (acute kidney injury) Current Visit: Yes Status: Acute Assessment and Plan: TAMEKA on CKD stage 4 now requiring hemodialysis. Renal following. Will assess for continued need for hemodialysis Made approx 650cc of urine in last 24hrs. Renal plan for possible permacath placement (5) CAD (coronary artery disease) Current Visit: Yes Status: Chronic Assessment and Plan: Patient has history of coronary stent 1 EKG reveals no signs of ischemia Initial troponin < 0.03 Continue home meds (6) HUSAM (obstructive sleep apnea) Current Visit: Yes Status: Chronic Assessment and Plan: CPAP at bedtime (7) Diabetes mellitus Current Visit: Yes Status: Chronic Assessment and Plan: DM type II with Hyperglycemia,Continue SSI FS ACHS (8) COPD exacerbation Current Visit: Yes Status: Acute Assessment and Plan: Hx of COPD on 2L home O2 Extubated 11/08, now on NC only. Continue oxygen supplementation as needed and nebs and BiPAP prn (9) Tobacco abuse Current Visit: Yes Status: Chronic Assessment and Plan: Tobacco cessation (10) Morbid obesity Current Visit: Yes Status: Chronic Assessment and Plan: BMI of 45, lifestyle modification (11) CKD (chronic kidney disease) stage 4, GFR 15-29 ml/min Current Visit: Yes Status: Chronic Assessment and Plan: See acute on chronic renal failure (12) Pneumonia Current Visit: Yes Status: Acute Assessment and Plan: Possibly aspiration in setting of encephalopathy vs HAP with recent hospitalization Blood culture shows E. fecalis, shaw-sensitive . Repeat blood culture x2 (11/10) negative till date Leukocytosis improved. Completed course of unasyn (13) DVT prophylaxis Current Visit: No Status: Acute Assessment and Plan: Heparin subcutaneous TID - Time Spent with Patient Total time spent is greater than 50% in coordination of care (as documented) at patient's floor/unit and/or counseling patient: Internal Medicine: Result - Labs CBC & Chem 7: 11/16/17 04:00 11/16/17 04:00 Labs: Short CBC 11/16/17 Range/Units 04:00 WBC 10.4 (4.3-11.1) K/mcL Hgb 8.2 L (11.5-15.4) g/dL Hct 25.8 L (35.3-44.9) % Plt Count 166 (140-400) K/mcL BMP 11/16/17 04:00 Sodium 135 L Potassium 3.3 L Chloride 96 L Carbon Dioxide 31 H BUN 53 H Creatinine 3.25 H Glucose 142 H Calcium 9.2 - ABG Interpretation ABG results: ABG ABG pH 7.38 pH Units (7.32-7.45) 11/13/17 01:37 ABG pCO2 52 mmHg (35-45) H 11/13/17 01:37 ABG pO2 67 mmHg (85-104) L 11/13/17 01:37 ABG O2 Saturation 92 % (95-98) L 11/13/17 01:37 PT/INR, D-dimer PT 13.3 Seconds (9.4-12.1) H 11/07/17 00:10 Consult Discharge Plan - Plan Referrals: Jay Valenzuela DO [Primary Care Provider] - (1) Acute exacerbation of CHF (congestive heart failure) Qualifiers: Heart failure type: diastolic Qualified Code(s): I50.33 - Acute on chronic diastolic (congestive) heart failure (5) CAD (coronary artery disease) Qualifiers: Coronary Disease-Associated Artery/Lesion type: [place] artery [place] vs. 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: with continuous churn buttermaker use Diabetes mellitus complication status: with kidney complications Diabetes mellitus complication detail: with chronic kidney disease Chronic kidney disease stage: stage 4 (severe) Qualified Code(s): E11.22 - Type 2 diabetes mellitus with diabetic chronic kidney disease; N18.4 - Chronic kidney disease, stage 4 (severe); Z79.4 - FDC (current) use of insulin (12) Pneumonia Qualifiers: Pneumonia type: due to unspecified organism Laterality: unspecified laterality Lung location: unspecified part of lung Qualified Code(s): J18.9 - Pneumonia, unspecified organism
[2017-11-16] MEDS: risperiDONE 1 MG TABLET PO SCH (07:54)
[2017-11-16] MEDS: metOLazone 5 MG TABLET PO SCH (07:54)
[2017-11-16] MEDS: Furosemide 40 MG TABLET PO SCH ×2 (07:54→17:15)
[2017-11-16] MEDS: NIFEdipine XL (24 HR) 60 MG TAB.ER.24 PO SCH (07:54)
[2017-11-16] MEDS: Ranolazine 500 MG TAB.ER.12H PO SCH ×2 (07:54→20:53)
[2017-11-16] MEDS: Nystatin POWDER 30 GM BOTTLE TP SCH ×2 (07:54→23:06)
[2017-11-16] MEDS: Cholecalciferol (D-3) 1,000 UNIT TABLET PO SCH (07:54)
[2017-11-16] MEDS: Sennosides/Docusate Sodium TABLET PO SCH ×2 (07:54→20:54)
[2017-11-16] MEDS: Famotidine 20 MG TABLET PO SCH (07:55)
[2017-11-16] MEDS: ALPRAZolam 1 MG TABLET PO SCH ×2 (07:55→20:53)
[2017-11-16] MEDS: cloNIDine HCl 0.1 MG TABLET PO SCH ×3 (07:55→20:53)
[2017-11-16] MEDS: hydrALAZINE 25 MG TABLET PO SCH ×3 (07:55→20:53)
[2017-11-16] MEDS ORDERED: 0.9 % Sodium Chloride 1,000 ML ONE (07:56)
[2017-11-16] MEDS: Insulin LISPRO 300 UNITS/3 ML VIAL SQ SCH ×4 (07:57→20:52)
[2017-11-16] MEDS ORDERED: 0.9 % Sodium Chloride 250 ML IVC PRN (09:23)
[2017-11-16] MEDS ORDERED: *HR* Heparin 10,000 UNIT/10 ML VIAL IV PRN (09:23)
[2017-11-16] MEDS ORDERED: 0.9 % Sodium Chloride 1,000 ML PRIME SCH (09:30)
[2017-11-16] MEDS: Budesonide/Formoterol 160/4.5 1 PUFF INH IH SCH ×2 (11:01→20:16)
[2017-11-17 03:56] LABS: Basophils # 0.1 K/mcL (0.0-0.2); Basophils % 0.8 %; Eosinophils # 0.3 K/mcL (0.0-0.6); Eosinophils % 2.7 %; Hematocrit 24.8 % (35.3-44.9); Immature Granulocytes % 5.7 % (0-4); Lymphocytes # 1.5 K/mcL (0.6-4.6); Lymphocytes % 14.8 %; Mean Corpuscular HGB Conc 32.3 g/dL (31.6-35.5); Mean Corpuscular Hemoglobin 26.4 pg (28.0-33.3); Mean Corpuscular Volume 81.8 fL (83.0-100.0); Mean Platelet Volume 9.4 fL (9.4-12.4); Monocytes % 9.7 %; Nucleated Red Blood Cells 0.2 /100 WBC (0); Platelet Count 171 K/mcL (140-400); Red Blood Count 3.03 M/mcL (3.82-4.97); Red Cell Distribution Width 15.1 % (11.5-14.5); Segmented Neutrophils % 66.3 %
[2017-11-17 03:59] LABS: Neutrophils # 6.6 K/mcL (1.6-8.9)
[2017-11-17 04:15] LABS: Calcium 8.6 mg/dL (8.6-10.3); Magnesium 1.8 mg/dL (1.6-2.6); Phosphorous 2.4 mg/dL (2.7-4.5); Potassium 3.7 mEq/L (3.5-5.1)
[2017-11-17 04:21] LABS: Platelet Estimate Normal (Normal)
[2017-11-17] MEDS: *HR* Heparin 5,000 UNIT/ML VIAL SQ SCH ×3 (05:11→22:56)
[2017-11-17] MEDS: Ipratropium/Albuterol Neb 3 ML IH SCH ×7 (05:13→23:42)
[2017-11-17] MEDS: Cholecalciferol (D-3) 1,000 UNIT TABLET PO SCH (09:21)
[2017-11-17] MEDS: hydrALAZINE 25 MG TABLET PO SCH ×3 (09:21→22:56)
[2017-11-17] MEDS: Famotidine 20 MG TABLET PO SCH (09:21)
[2017-11-17] MEDS: cloNIDine HCl 0.1 MG TABLET PO SCH ×3 (09:21→22:56)
[2017-11-17] MEDS: Furosemide 40 MG TABLET PO SCH ×2 (09:22→17:01)
[2017-11-17] MEDS: risperiDONE 1 MG TABLET PO SCH (09:22)
[2017-11-17] MEDS: ALPRAZolam 1 MG TABLET PO SCH ×2 (09:22→22:56)
[2017-11-17] MEDS: Sennosides/Docusate Sodium TABLET PO SCH ×2 (09:22→23:33)
[2017-11-17] MEDS: Ranolazine 500 MG TAB.ER.12H PO SCH ×2 (09:22→22:56)
[2017-11-17] MEDS: metOLazone 5 MG TABLET PO SCH (09:22)
[2017-11-17] MEDS: Insulin LISPRO 300 UNITS/3 ML VIAL SQ SCH ×4 (09:31→22:57)
[2017-11-17] MEDS: Nystatin POWDER 30 GM BOTTLE TP SCH ×2 (09:33→23:33)
[2017-11-17] MEDS: NIFEdipine XL (24 HR) 60 MG TAB.ER.24 PO SCH (11:26)
[2017-11-17] MEDS: Budesonide/Formoterol 160/4.5 1 PUFF INH IH SCH ×2 (11:27→20:13)
--- NOTE | 2017-11-17 13:26 | Internal Med Progress Note ---
Hospitalist Progress Note - Encounter Date of Encounter: 11/17/17 Time of Encounter: 12:51 - Subjective Interval History: Patient seen and examined this morning. No acute overnight events. Denies fever , chills, N/V/D. Feeling better. Had HD yesterday. - Exam Vitals: Temp Pulse Resp BP Pulse Ox 97.6 F 67 18 159/60 97 11/17/17 11:21 11/17/17 11:21 11/17/17 11:43 11/17/17 11:21 11/17/17 11:43 Exam: Gen: Morbidly obese in no form of distress HEENT: Right IJ Shiley catheter, oral mucosa is moist, no cyanosis or jaundice. Chest: CTAB Heart: S1, S2 only, no m/g/r Abdomen: Obese, soft, not tender Skin: No rash Extremities: No edena Neuro: Awake and alert, oriented to place and person, follows commands, no focal deficits at this time. - Assessment and Plan (1) CAD (coronary artery disease) Current Visit: Yes Status: Chronic (2) HUSAM (obstructive sleep apnea) Current Visit: Yes Status: Chronic (3) Diabetes mellitus Current Visit: Yes Status: Chronic (4) COPD exacerbation Current Visit: Yes Status: Acute (5) Tobacco abuse Current Visit: Yes Status: Chronic (6) Morbid obesity Current Visit: Yes Status: Chronic (7) DVT prophylaxis Current Visit: No Status: Acute (8) CKD (chronic kidney disease) stage 4, GFR 15-29 ml/min Current Visit: Yes Status: Chronic (9) Acute exacerbation of CHF (congestive heart failure) Current Visit: Yes Status: Acute (10) Acute on chronic respiratory failure with hypoxia and hypercapnia Current Visit: Yes Status: Acute (11) Hypertensive emergency Current Visit: Yes Status: Acute (12) Pneumonia Current Visit: Yes Status: Acute (13) TAMEKA (acute kidney injury) Current Visit: Yes Status: Acute - Summary of Assessment and Plan Summary of Assessment and Plan: TAMEKA on CKD - now requiring hemodialysis. Renal following. Will assess for continued need for hemodialysis - Renal plan for possible permacath placement. off Plavix now. To get permacath placed possibly tomorrow. Acute on chronic respiratory failure with hypoxia and hypercapnia - Now resolved. - Acute respiratory failure upon arrival to ED likely 2/2 decompensated heart failure - Patient extubated on 11/08 - BiPAP at bedtime and prn Acute exacerbation of CHF - Acute decompensation likely 2/2 hypertensive emergency - Fluid overload state has improved. Continue metolazone, lasix at home dose and continue HD Hypertensive emergency - BP elevated at systolic of low 206/86 with TAMEKA on CKD and resp failure from CHFE requiring intubation - c/w nifedipine, hydralazine 100 mg TID, PO coreg 25mg po bID. clonidine 01.mg TD for better BP control, monitor diastolics per renal recs. prn labetalol - Continue lasix, continue metolazone CAD - Patient has history of coronary stent 1 - EKG reveals no signs of ischemia - Continue home meds - Off plavix for permacath placement. HUSAM - c/w CPAP at bedtime Diabetes mellitus - Continue SSI, accuchecks ACHS COPD - Continue oxygen supplementation as needed and nebs and BiPAP prn Morbid obesity - BMI of 45, lifestyle modification Pneumonia - Possibly aspiration in setting of encephalopathy vs HAP with recent hospitalization - Blood culture shows E. fecalis, shaw-sensitive . Repeat blood culture x2 (11/10 ) negative till date - Completed course of unasyn DVT prophylaxis -Heparin subcutaneous TID - Time Spent with Patient Total time spent is greater than 50% in coordination of care (as documented) at patient's floor/unit and/or counseling patient: Internal Medicine: Result - Labs CBC & Chem 7: 11/17/17 03:40 11/17/17 03:40 Labs: Short CBC 11/17/17 Range/Units 03:40 WBC 9.9 (4.3-11.1) K/mcL Hgb 8.0 L (11.5-15.4) g/dL Hct 24.8 L (35.3-44.9) % Plt Count 171 (140-400) K/mcL Neutrophils # 6.6 (1.6-8.9) K/mcL BMP 11/17/17 03:40 Sodium 136 Potassium 3.7 Chloride 99 Carbon Dioxide 30 H BUN 32 H Creatinine 2.62 H Glucose 151 H Calcium 8.6 - ABG Interpretation ABG results: ABG ABG pH 7.38 pH Units (7.32-7.45) 11/13/17 01:37 ABG pCO2 52 mmHg (35-45) H 11/13/17 01:37 ABG pO2 67 mmHg (85-104) L 11/13/17 01:37 ABG O2 Saturation 92 % (95-98) L 11/13/17 01:37 PT/INR, D-dimer PT 13.3 Seconds (9.4-12.1) H 11/07/17 00:10 Consult Discharge Plan - Plan Referrals: Jay Valenzuela DO [Primary Care Provider] - (1) CAD (coronary artery disease) Qualifiers: Coronary Disease-Associated Artery/Lesion type: [place] artery [place] vs. 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 Diabetes mellitus complication status: with kidney complications Diabetes mellitus complication detail: with chronic kidney disease Chronic kidney disease stage: stage 4 (severe) Qualified Code(s): E11.22 - Type 2 diabetes mellitus with diabetic chronic kidney disease; N18.4 - Chronic kidney disease, stage 4 (severe); Z79.4 - lobsterman (current) use of insulin (9) Acute exacerbation of CHF (congestive heart failure) Qualifiers: Heart failure type: diastolic Qualified Code(s): I50.33 - Acute on chronic diastolic (congestive) heart failure (12) Pneumonia Qualifiers: Pneumonia type: due to unspecified organism Laterality: unspecified laterality Lung location: unspecified part of lung Qualified Code(s): J18.9 - Pneumonia, unspecified organism
[2017-11-18 04:21] LABS: Hematocrit 26.2 % (35.3-44.9); Hemoglobin 8.4 g/dL (11.5-15.4); Mean Corpuscular HGB Conc 32.1 g/dL (31.6-35.5); Mean Corpuscular Hemoglobin 26.3 pg (28.0-33.3); Mean Corpuscular Volume 81.9 fL (83.0-100.0); Platelet Count 199 K/mcL (140-400); Red Cell Distribution Width 15.2 % (11.5-14.5)
[2017-11-18] MEDS: Ipratropium/Albuterol Neb 3 ML IH SCH ×6 (04:38→23:30)
[2017-11-18 04:40] LABS: Calcium 9.3 mg/dL (8.6-10.3); Magnesium 1.9 mg/dL (1.6-2.6); Phosphorous 3.2 mg/dL (2.7-4.5); Potassium 3.7 mEq/L (3.5-5.1)
[2017-11-18 04:42] LABS: Monocytes # 0.5 K/mcL (0.0-1.3); Neutrophils # 9.6 K/mcL (1.6-8.9); Platelet Estimate Normal (Normal); Polychromasia 1+ (Not Present); Reactive Lymphocytes Present (Not Present)
[2017-11-18] MEDS: *HR* Heparin 5,000 UNIT/ML VIAL SQ SCH ×3 (05:24→21:45)
[2017-11-18] MEDS: Budesonide/Formoterol 160/4.5 1 PUFF INH IH SCH ×2 (07:47→20:14)
[2017-11-18] MEDS ORDERED: *HR* Heparin 10,000 UNIT/10 ML VIAL IV PRN (07:48)
[2017-11-18] MEDS ORDERED: 0.9 % Sodium Chloride 250 ML IVC PRN (07:48)
[2017-11-18] MEDS ORDERED: 0.9 % Sodium Chloride 1,000 ML ONE (07:59)
[2017-11-18] MEDS ORDERED: 0.9 % Sodium Chloride 1,000 ML PRIME SCH (08:00)
[2017-11-18] MEDS: Famotidine 20 MG TABLET PO SCH (08:16)
[2017-11-18] MEDS: Cholecalciferol (D-3) 1,000 UNIT TABLET PO SCH (08:16)
[2017-11-18] MEDS: risperiDONE 1 MG TABLET PO SCH (08:16)
[2017-11-18] MEDS: Ranolazine 500 MG TAB.ER.12H PO SCH ×2 (08:16→21:44)
[2017-11-18] MEDS: Sennosides/Docusate Sodium TABLET PO SCH ×2 (08:16→21:45)
[2017-11-18] MEDS: ALPRAZolam 1 MG TABLET PO SCH ×2 (08:16→21:44)
[2017-11-18] MEDS: Insulin LISPRO 300 UNITS/3 ML VIAL SQ SCH ×4 (10:14→23:43)
--- NOTE | 2017-11-18 11:47 | Internal Med Progress Note ---
Hospitalist Progress Note - Encounter Date of Encounter: 11/18/17 Time of Encounter: 08:13 - Subjective Interval History: Patient seen and examined this morning. No acute overnight events. Denies fever , chills, N/V/D. Feeling better. Plan for HD today. - Exam Vitals: Temp Pulse Resp BP Pulse Ox 98.2 F 73 16 157/55 100 11/18/17 09:05 11/18/17 06:51 11/18/17 09:05 11/18/17 11:24 11/18/17 07:46 Exam: Gen: Morbidly obese in no form of distress HEENT: Right IJ Shiley catheter, oral mucosa is moist, no cyanosis or jaundice. Chest: CTAB Heart: S1, S2 only, no m/g/r Abdomen: Obese, soft, not tender Skin: No rash Extremities: No edena Neuro: Awake and alert, oriented to place and person, follows commands, no focal deficits at this time. - Assessment and Plan (1) CAD (coronary artery disease) Current Visit: Yes Status: Chronic (2) HUSAM (obstructive sleep apnea) Current Visit: Yes Status: Chronic (3) Diabetes mellitus Current Visit: Yes Status: Chronic (4) COPD exacerbation Current Visit: Yes Status: Acute (5) Tobacco abuse Current Visit: Yes Status: Chronic (6) Morbid obesity Current Visit: Yes Status: Chronic (7) DVT prophylaxis Current Visit: No Status: Acute (8) CKD (chronic kidney disease) stage 4, GFR 15-29 ml/min Current Visit: Yes Status: Chronic (9) Acute exacerbation of CHF (congestive heart failure) Current Visit: Yes Status: Acute (10) Acute on chronic respiratory failure with hypoxia and hypercapnia Current Visit: Yes Status: Acute (11) Hypertensive emergency Current Visit: Yes Status: Acute (12) Pneumonia Current Visit: Yes Status: Acute (13) TAMEKA (acute kidney injury) Current Visit: Yes Status: Acute - Summary of Assessment and Plan Summary of Assessment and Plan: TAMEKA on CKD - now requiring hemodialysis. Renal following. Will assess for continued need for hemodialysis. Plan for HD today given worsening renal function. - Renal plan for possible permacath placement. Off Plavix now. To get permacath placed possibly soon. Acute on chronic respiratory failure with hypoxia and hypercapnia - Now resolved. - Acute respiratory failure upon arrival to ED likely 2/2 decompensated heart failure - Patient extubated on 11/08 - BiPAP at bedtime and prn Acute exacerbation of CHF - Acute decompensation likely 2/2 hypertensive emergency - Fluid overload state has improved. Continue metolazone, lasix at home dose and continue HD Hypertensive emergency - BP elevated at systolic of low 206/86 with TAMEKA on CKD and resp failure from CHFE requiring intubation - c/w nifedipine, hydralazine 100 mg TID, PO coreg 25mg po bID. clonidine 0.1mg TD for better BP control, monitor diastolics per renal recs. prn labetalol - Continue lasix, continue metolazone Pneumonia - Possibly aspiration in setting of encephalopathy vs HAP with recent hospitalization - Blood culture shows E. fecalis, shaw-sensitive . Repeat blood culture x2 (11/10 ) negative till date - Completed course of unasyn. CAD - Patient has history of coronary stent 1 - EKG reveals no signs of ischemia. Not symptomatic - Continue home meds - Off plavix for permacath placement. HUSAM - c/w CPAP at bedtime Diabetes mellitus - Continue SSI, accuchecks ACHS COPD - Continue oxygen supplementation as needed and nebs and BiPAP prn Morbid obesity - BMI of 45, lifestyle modification DVT prophylaxis -Heparin subcutaneous TID Discharge planning once premath place and has chairtime scheduled. - Time Spent with Patient Total time spent is greater than 50% in coordination of care (as documented) at patient's floor/unit and/or counseling patient: Internal Medicine: Result - Labs CBC & Chem 7: 11/18/17 04:10 11/18/17 04:10 Labs: Short CBC 11/18/17 Range/Units 04:10 WBC 12.6 H (4.3-11.1) K/mcL Hgb 8.4 L (11.5-15.4) g/dL Hct 26.2 L (35.3-44.9) % Plt Count 199 (140-400) K/mcL Neutrophils # 9.6 H (1.6-8.9) K/mcL BMP 11/18/17 04:10 Sodium 134 L Potassium 3.7 Chloride 97 L Carbon Dioxide 29 BUN 47 H Creatinine 4.12 H Glucose 162 H Calcium 9.3 - ABG Interpretation ABG results: ABG ABG pH 7.38 pH Units (7.32-7.45) 11/13/17 01:37 ABG pCO2 52 mmHg (35-45) H 11/13/17 01:37 ABG pO2 67 mmHg (85-104) L 11/13/17 01:37 ABG O2 Saturation 92 % (95-98) L 11/13/17 01:37 PT/INR, D-dimer PT 13.3 Seconds (9.4-12.1) H 11/07/17 00:10 Consult Discharge Plan - Plan Referrals: Jay Valenzuela DO [Primary Care Provider] - (1) CAD (coronary artery disease) Qualifiers: Coronary Disease-Associated Artery/Lesion type: [place] artery [place] vs. 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 Diabetes mellitus complication status: with kidney complications Diabetes mellitus complication detail: with chronic kidney disease Chronic kidney disease stage: stage 4 (severe) Qualified Code(s): E11.22 - Type 2 diabetes mellitus with diabetic chronic kidney disease; N18.4 - Chronic kidney disease, stage 4 (severe); Z79.4 - forensic locksmith (current) use of insulin (9) Acute exacerbation of CHF (congestive heart failure) Qualifiers: Heart failure type: diastolic Qualified Code(s): I50.33 - Acute on chronic diastolic (congestive) heart failure (12) Pneumonia Qualifiers: Pneumonia type: due to unspecified organism Laterality: unspecified laterality Lung location: unspecified part of lung Qualified Code(s): J18.9 - Pneumonia, unspecified organism
--- NOTE | 2017-11-18 13:04 | Nephrology Progress Note ---
Date of Encounter: 11/18/17 Time of Encounter: 12:00 - Assessment and Plan (1) TAMEKA (acute kidney injury) Current Visit: Yes Status: Acute (2) CKD (chronic kidney disease) stage 4, GFR 15-29 ml/min Current Visit: Yes Status: Chronic (3) Acute exacerbation of CHF (congestive heart failure) Current Visit: No Status: Acute Qualifiers: Heart failure type: diastolic Qualified Code(s): I50.33 - Acute on chronic diastolic (congestive) heart failure (4) Acute and chronic respiratory failure with hypercapnia Current Visit: Yes Status: Acute (5) Hypertensive urgency Current Visit: Yes Status: Acute Subjective Principal diagnosis: Acute respiratory failure Interval history: Pt seen and examined feels good with no complaints. denies SOB. BP readings still around 180s/60s Objective - Vital Signs Vital signs: Vital Signs Temp Pulse Resp BP Pulse Ox 11/18/17 12:35 164/54 11/18/17 12:20 153/56 11/18/17 12:05 163/54 11/18/17 11:50 172/54 11/18/17 11:35 157/55 11/18/17 11:20 168/58 11/18/17 11:05 165/57 11/18/17 10:50 157/55 11/18/17 10:35 165/55 11/18/17 10:20 167/57 11/18/17 10:05 160/54 11/18/17 09:50 158/52 11/18/17 09:35 169/55 11/18/17 09:20 184/61 11/18/17 09:05 98.2 F 16 182/61 11/18/17 07:46 10 100 11/18/17 06:51 98.4 F 73 19 171/58 96 11/18/17 04:38 18 94 11/17/17 23:43 16 93 11/17/17 20:13 16 95 11/17/17 16:31 16 96 11/17/17 16:21 97.8 F 71 16 159/56 96 Intake and Output 11/17/17 11/18/17 11/18/17 23:59 07:59 15:59 Intake Total 360 / 360 600 / 600 Balance 360 / 360 600 / 600 Intake: Oral 360 / 360 Intake, Rinseback and Flushes 600 / 600 Other: Meal Dinner Percent of Meal Consumed 10% Blood Glucose* 242 141 Hemodialysis Net Fluid Removed 3600 (mL) - Lab 11/18/17 04:10 11/18/17 04:10 Most recent lab results ABG pH 7.38 pH Units (7.32-7.45) 11/13/17 01:37 ABG pCO2 52 mmHg (35-45) H 11/13/17 01:37 ABG pO2 67 mmHg (85-104) L 11/13/17 01:37 ABG HCO3 31 mEq/L (21-27) H 11/13/17 01:37 ABG O2 Saturation 92 % (95-98) L 11/13/17 01:37 Calcium 9.3 mg/dL (8.6-10.3) 11/18/17 04:10 Phosphorus 3.2 mg/dL (2.7-4.5) 11/18/17 04:10 Magnesium 1.9 mg/dL (1.6-2.6) 11/18/17 04:10 Urine Creatinine 86 mg/dL 11/09/17 18:00 Urine Sodium 21.8 mEq/L 11/09/17 18:00 Urine Total Protein 395 mg/dL (1-14) H 11/09/17 18:00 Consult Discharge Plan - Plan Referrals: Jay Valenzuela DO [Primary Care Provider] -
[2017-11-18] MEDS: cloNIDine HCl 0.1 MG TABLET PO SCH ×3 (14:11→21:45)
[2017-11-18] MEDS: Furosemide 40 MG TABLET PO SCH ×2 (14:11→16:43)
[2017-11-18] MEDS: hydrALAZINE 25 MG TABLET PO SCH ×3 (14:11→21:45)
[2017-11-18] MEDS: metOLazone 5 MG TABLET PO SCH (14:11)
[2017-11-18] MEDS: NIFEdipine XL (24 HR) 60 MG TAB.ER.24 PO SCH (14:11)
[2017-11-18] MEDS: Nystatin POWDER 30 GM BOTTLE TP SCH ×2 (14:11→23:46)
[2017-11-19] MEDS: Ipratropium/Albuterol Neb 3 ML IH SCH ×6 (03:34→23:49)
[2017-11-19 04:13] LABS: Basophils # 0.1 K/mcL (0.0-0.2); Basophils % 0.9 %; Eosinophils # 0.4 K/mcL (0.0-0.6); Eosinophils % 2.8 %; Hematocrit 24.9 % (35.3-44.9); Hemoglobin 7.8 g/dL (11.5-15.4); Immature Granulocytes % 4.1 % (0-4); Lymphocytes # 1.7 K/mcL (0.6-4.6); Lymphocytes % 13.1 %; Mean Corpuscular HGB Conc 31.3 g/dL (31.6-35.5); Mean Corpuscular Hemoglobin 26.2 pg (28.0-33.3); Mean Corpuscular Volume 83.6 fL (83.0-100.0); Mean Platelet Volume 9.8 fL (9.4-12.4); Monocytes # 1.1 K/mcL (0.0-1.3); Monocytes % 8.5 %; Neutrophils # 9.2 K/mcL (1.6-8.9); Nucleated Red Blood Cells 0.2 /100 WBC (0); Platelet Count 173 K/mcL (140-400); Red Blood Count 2.98 M/mcL (3.82-4.97); Red Cell Distribution Width 14.9 % (11.5-14.5); Segmented Neutrophils % 70.6 %
[2017-11-19 04:24] LABS: Calcium 8.7 mg/dL (8.6-10.3); Magnesium 1.9 mg/dL (1.6-2.6); Phosphorous 2.6 mg/dL (2.7-4.5); Potassium 3.3 mEq/L (3.5-5.1)
[2017-11-19] MEDS: *HR* Heparin 5,000 UNIT/ML VIAL SQ SCH ×3 (05:48→21:57)
[2017-11-19] MEDS: Budesonide/Formoterol 160/4.5 1 PUFF INH IH SCH ×2 (07:46→20:00)
[2017-11-19] MEDS: Ranolazine 500 MG TAB.ER.12H PO SCH ×2 (08:06→21:57)
[2017-11-19] MEDS: Cholecalciferol (D-3) 1,000 UNIT TABLET PO SCH (08:06)
[2017-11-19] MEDS: Sennosides/Docusate Sodium TABLET PO SCH ×2 (08:06→21:59)
[2017-11-19] MEDS: Nystatin POWDER 30 GM BOTTLE TP SCH ×2 (08:06→22:05)
[2017-11-19] MEDS: NIFEdipine XL (24 HR) 60 MG TAB.ER.24 PO SCH (08:06)
[2017-11-19] MEDS: hydrALAZINE 25 MG TABLET PO SCH ×3 (08:07→21:56)
[2017-11-19] MEDS: cloNIDine HCl 0.1 MG TABLET PO SCH ×3 (08:08→21:56)
[2017-11-19] MEDS: metOLazone 5 MG TABLET PO SCH (08:08)
[2017-11-19] MEDS: ALPRAZolam 1 MG TABLET PO SCH ×2 (08:08→21:56)
[2017-11-19] MEDS: Famotidine 20 MG TABLET PO SCH (08:08)
[2017-11-19] MEDS: risperiDONE 1 MG TABLET PO SCH (08:08)
[2017-11-19] MEDS: Furosemide 40 MG TABLET PO SCH ×2 (08:09→17:29)
[2017-11-19] MEDS: Insulin LISPRO 300 UNITS/3 ML VIAL SQ SCH ×4 (08:09→22:06)
--- NOTE | 2017-11-19 11:13 | Nephrology Progress Note ---
Date of Encounter: 11/19/17 Time of Encounter: 12:00 - Assessment and Plan (1) TAMEKA (acute kidney injury) Current Visit: Yes Status: Acute (2) CKD (chronic kidney disease) stage 4, GFR 15-29 ml/min Current Visit: Yes Status: Chronic (3) Acute exacerbation of CHF (congestive heart failure) Current Visit: No Status: Acute Qualifiers: Heart failure type: diastolic Qualified Code(s): I50.33 - Acute on chronic diastolic (congestive) heart failure (4) Acute and chronic respiratory failure with hypercapnia Current Visit: Yes Status: Acute (5) Hypertensive urgency Current Visit: Yes Status: Acute Subjective Principal diagnosis: Acute respiratory failure Interval history: Pt seen and examined feels good with no complaints. denies SOB. BP readings still around 180s/60s Objective - Vital Signs Vital signs: Vital Signs Temp Pulse Resp BP Pulse Ox 11/19/17 10:46 98.5 F 67 12 180/65 98 11/19/17 08:30 96 11/19/17 07:47 16 96 11/19/17 07:28 98.5 F 69 16 177/70 96 11/19/17 04:40 98.6 F 62 16 133/40 96 11/19/17 03:34 16 96 11/19/17 00:28 98.8 F 66 15 169/54 99 11/18/17 23:30 18 98 11/18/17 21:09 98.5 F 65 16 164/58 95 11/18/17 20:15 16 95 11/18/17 15:54 98.5 F 69 18 170/81 96 11/18/17 15:23 16 96 11/18/17 12:50 97.9 F 18 171/56 11/18/17 12:35 164/54 11/18/17 12:20 153/56 11/18/17 12:05 163/54 11/18/17 11:50 172/54 11/18/17 11:35 157/55 11/18/17 11:20 168/58 Intake and Output 11/18/17 11/19/17 11/19/17 23:59 07:59 15:59 Intake Total 360 / 360 Output Total 600 / 600 Balance -600 / -600 360 / 360 Intake: Oral 360 / 360 Output: Urine 600 / 600 Other: Meal Breakfast Percent of Meal Consumed 25% Weight 122.4 kg Blood Glucose* 230 145 Patient Weight 11/19/17 23:59 Weight 122.4 kg - Lab 11/19/17 03:59 11/19/17 03:59 Most recent lab results ABG pH 7.38 pH Units (7.32-7.45) 11/13/17 01:37 ABG pCO2 52 mmHg (35-45) H 11/13/17 01:37 ABG pO2 67 mmHg (85-104) L 11/13/17 01:37 ABG HCO3 31 mEq/L (21-27) H 11/13/17 01:37 ABG O2 Saturation 92 % (95-98) L 11/13/17 01:37 Calcium 8.7 mg/dL (8.6-10.3) 11/19/17 03:59 Phosphorus 2.6 mg/dL (2.7-4.5) L 11/19/17 03:59 Magnesium 1.9 mg/dL (1.6-2.6) 11/19/17 03:59 Urine Creatinine 86 mg/dL 11/09/17 18:00 Urine Sodium 21.8 mEq/L 11/09/17 18:00 Urine Total Protein 395 mg/dL (1-14) H 11/09/17 18:00 Consult Discharge Plan - Plan Referrals: Jay Valenzuela DO [Primary Care Provider] -
[2017-11-19] MEDS: *HR* Labetalol 20 MG/4 ML SYRINGE IVP PRN (11:17)
--- NOTE | 2017-11-19 12:53 | Internal Med Progress Note ---
Hospitalist Progress Note - Encounter Date of Encounter: 11/19/17 Time of Encounter: 09:26 - Subjective Interval History: No acute overnight events. Had HD yesterday. No other complains. Some itching around pads along with erythema. NO fever, chills, N/V/D. Feeling better. - Exam Vitals: Temp Pulse Resp BP Pulse Ox 98.5 F 67 12 180/65 98 11/19/17 10:46 11/19/17 10:46 11/19/17 11:12 11/19/17 10:46 11/19/17 11:12 Exam: Gen: Morbidly obese in no form of distress HEENT: Right IJ Shiley catheter, oral mucosa is moist, no cyanosis or jaundice. Chest: CTAB Heart: S1, S2 only, no m/g/r Abdomen: Obese, soft, not tender Skin: erythematous Rash below adhesive pads Extremities: No edena Neuro: Awake and alert, oriented to place and person, follows commands, no focal deficits at this time. - Assessment and Plan (1) CAD (coronary artery disease) Current Visit: Yes Status: Chronic (2) HUSAM (obstructive sleep apnea) Current Visit: Yes Status: Chronic (3) Diabetes mellitus Current Visit: Yes Status: Chronic (4) COPD exacerbation Current Visit: Yes Status: Acute (5) Tobacco abuse Current Visit: Yes Status: Chronic (6) Morbid obesity Current Visit: Yes Status: Chronic (7) DVT prophylaxis Current Visit: No Status: Acute (8) CKD (chronic kidney disease) stage 4, GFR 15-29 ml/min Current Visit: Yes Status: Chronic (9) Acute exacerbation of CHF (congestive heart failure) Current Visit: Yes Status: Acute (10) Acute on chronic respiratory failure with hypoxia and hypercapnia Current Visit: Yes Status: Acute (11) Hypertensive emergency Current Visit: Yes Status: Acute (12) Pneumonia Current Visit: Yes Status: Acute (13) TAMEKA (acute kidney injury) Current Visit: Yes Status: Acute - Summary of Assessment and Plan Summary of Assessment and Plan: TAMEKA on CKD - now requiring hemodialysis. Renal following. Had HD yesterday - Plan for permacath placement tomorrow. Off Plavix now day 4. IR to place permacath tommorrow. Acute on chronic respiratory failure with hypoxia and hypercapnia - Now resolved. - Acute respiratory failure upon arrival to ED likely 2/2 decompensated heart failure - Patient extubated on 11/08 - BiPAP at bedtime and prn Acute exacerbation of CHF - Acute decompensation likely 2/2 hypertensive emergency - Fluid overload state has improved. Continue metolazone, lasix at home dose and continue HD Hypertensive emergency - BP elevated at systolic of low 206/86 with TAMEKA on CKD and resp failure from CHF requiring intubation initially. Now extubated - Did not get nifedipine yesterday. BP elevated at 180/65 today. Got IV labetalol for elevated BP. - c/w nifedipine, hydralazine 100 mg TID, PO coreg 25mg po bID. clonidine 0.1mg TD for better BP control, monitor diastolics per renal recs. Will use prn IV labetalol - Continue lasix, continue metolazone Pneumonia - Possibly aspiration in setting of encephalopathy vs HAP with recent hospitalization - Blood culture shows E. fecalis, shaw-sensitive . Repeat blood culture x2 (11/10 ) negative till date - Completed course of unasyn. CAD - Patient has history of coronary stent 1 - EKG reveals no signs of ischemia. Not symptomatic - Continue home meds - Off plavix for permacath placement. HUSAM - c/w CPAP at bedtime Diabetes mellitus - Continue SSI, accuchecks ACHS COPD - Continue oxygen supplementation as needed and nebs and BiPAP prn Morbid obesity - BMI of 45, lifestyle modification DVT prophylaxis -Heparin subcutaneous TID Discharge planning once premath place and has chairtime scheduled. - Time Spent with Patient Total time spent is greater than 50% in coordination of care (as documented) at patient's floor/unit and/or counseling patient: Internal Medicine: Result - Labs CBC & Chem 7: 11/19/17 03:59 11/19/17 03:59 Labs: Short CBC 11/19/17 Range/Units 03:59 WBC 12.9 H (4.3-11.1) K/mcL Hgb 7.8 L (11.5-15.4) g/dL Hct 24.9 L (35.3-44.9) % Plt Count 173 (140-400) K/mcL Neutrophils # 9.2 H (1.6-8.9) K/mcL BMP 11/19/17 03:59 Sodium 135 L Potassium 3.3 L Chloride 96 L Carbon Dioxide 31 H BUN 28 H Creatinine 3.18 H Glucose 153 H Calcium 8.7 - ABG Interpretation ABG results: ABG ABG pH 7.38 pH Units (7.32-7.45) 11/13/17 01:37 ABG pCO2 52 mmHg (35-45) H 11/13/17 01:37 ABG pO2 67 mmHg (85-104) L 11/13/17 01:37 ABG O2 Saturation 92 % (95-98) L 11/13/17 01:37 PT/INR, D-dimer PT 13.3 Seconds (9.4-12.1) H 11/07/17 00:10 Consult Discharge Plan - Plan Referrals: Jay Valenzuela DO [Primary Care Provider] - (1) CAD (coronary artery disease) Qualifiers: Coronary Disease-Associated Artery/Lesion type: [place] artery [place] vs. transplanted heart: [place] heart Associated angina: without angina Qualified Code(s): I25.10 - Atherosclerotic heart disease of [place] coronary artery without angina pectoris (3) Diabetes mellitus Qualifiers: Diabetes mellitus type: type 2 Diabetes mellitus assisted insulin use: with assisted use Diabetes mellitus complication status: with kidney complications Diabetes mellitus complication detail: with chronic kidney disease Chronic kidney disease stage: stage 4 (severe) Qualified Code(s): E11.22 - Type 2 diabetes mellitus with diabetic chronic kidney disease; N18.4 - Chronic kidney disease, stage 4 (severe); Z79.4 - care home (current) use of insulin (9) Acute exacerbation of CHF (congestive heart failure) Qualifiers: Heart failure type: diastolic Qualified Code(s): I50.33 - Acute on chronic diastolic (congestive) heart failure (12) Pneumonia Qualifiers: Pneumonia type: due to unspecified organism Laterality: unspecified laterality Lung location: unspecified part of lung Qualified Code(s): J18.9 - Pneumonia, unspecified organism
[2017-11-20] MEDS: Ipratropium/Albuterol Neb 3 ML IH SCH ×5 (04:10→20:20)
[2017-11-20 05:40] LABS: Basophils # 0.1 K/mcL (0.0-0.2); Basophils % 0.9 %; Eosinophils # 0.5 K/mcL (0.0-0.6); Eosinophils % 3.8 %; Hematocrit 24.4 % (35.3-44.9); Hemoglobin 7.8 g/dL (11.5-15.4); Lymphocytes # 1.4 K/mcL (0.6-4.6); Lymphocytes % 11.5 %; Mean Corpuscular Hemoglobin 26.3 pg (28.0-33.3); Mean Corpuscular Volume 82.2 fL (83.0-100.0); Mean Platelet Volume 10.5 fL (9.4-12.4); Monocytes % 8.4 %; Neutrophils # 8.7 K/mcL (1.6-8.9); Platelet Count 200 K/mcL (140-400); Red Blood Count 2.97 M/mcL (3.82-4.97); Segmented Neutrophils % 70.4 %
[2017-11-20 05:44] LABS: Prothrombin Time 11.4 Seconds (9.4-12.1)
[2017-11-20 05:46] LABS: Activated Partial Thrombo Time 32.8 Seconds (26.0-36.0)
[2017-11-20 05:48] LABS: Calcium 9.2 mg/dL (8.6-10.3); Phosphorous 3.6 mg/dL (2.7-4.5); Potassium 3.4 mEq/L (3.5-5.1)
[2017-11-20] MEDS: Budesonide/Formoterol 160/4.5 1 PUFF INH IH SCH ×2 (07:40→20:20)
[2017-11-20] MEDS ORDERED: 0.9 % Sodium Chloride 250 ML IVC PRN (07:43)
[2017-11-20] MEDS ORDERED: *HR* Heparin 10,000 UNIT/10 ML VIAL IV PRN (07:43)
[2017-11-20] MEDS ORDERED: 0.9 % Sodium Chloride 1,000 ML PRIME SCH (07:45)
[2017-11-20] MEDS ORDERED: 0.9 % Sodium Chloride 1,000 ML ONE (08:33)
[2017-11-20] MEDS ORDERED: Heparin 1,000 UNITS/500 mL 500 ML ONE (08:35)
[2017-11-20] MEDS ORDERED: *HR* FentaNYL (PF) 100 MCG/2 ML VIAL IVP ONE (08:54)
[2017-11-20] MEDS ORDERED: CeFAZolin Premix DUPLEX 2,000 MG/50 ML BAG IVPB ONE ×2 (08:54→09:11)
[2017-11-20] MEDS ORDERED: *HR* Midazolam HCl 2 MG/2 ML VIAL IVP ONE (08:54)
[2017-11-20] MEDS ORDERED: 0.9 % Sodium Chloride 500 ML ONE (09:02)
[2017-11-20] MEDS ORDERED: *HR* FentaNYL (PF) 100 MCG/2 ML VIAL ONE (09:05)
[2017-11-20] MEDS ORDERED: *HR* Midazolam HCl 2 MG/2 ML VIAL ONE (09:05)
[2017-11-20] MEDS ORDERED: *HR* Heparin 5,000 UNIT/ML VIAL ONE (09:24)
--- NOTE | 2017-11-20 11:44 | Internal Med Progress Note ---
Hospitalist Progress Note - Encounter Date of Encounter: 11/20/17 Time of Encounter: 11:44 - Subjective Interval History: Patient seen and examined this morning. No acute overnight events. No other complains. NO fever, chills, N/V/D. Feeling better. - Exam Vitals: Temp Pulse Resp BP Pulse Ox 97.3 F L 72 18 174/74 96 11/20/17 10:00 11/20/17 09:33 11/20/17 10:00 11/20/17 11:30 11/20/17 09:33 Exam: Gen: Morbidly obese in no form of distress HEENT: Right IJ Shiley catheter, oral mucosa is moist, no cyanosis or jaundice. Chest: CTAB Heart: S1, S2 only, no m/g/r Abdomen: Obese, soft, not tender Skin: erythematous Rash below adhesive pads Extremities: No edena Neuro: Awake and alert, oriented to place and person, follows commands, no focal deficits at this time. - Assessment and Plan (1) CAD (coronary artery disease) Current Visit: Yes Status: Chronic (2) HUSAM (obstructive sleep apnea) Current Visit: Yes Status: Chronic (3) Diabetes mellitus Current Visit: Yes Status: Chronic (4) COPD exacerbation Current Visit: Yes Status: Acute (5) Tobacco abuse Current Visit: Yes Status: Chronic (6) Morbid obesity Current Visit: Yes Status: Chronic (7) DVT prophylaxis Current Visit: No Status: Acute (8) CKD (chronic kidney disease) stage 4, GFR 15-29 ml/min Current Visit: Yes Status: Chronic (9) Acute exacerbation of CHF (congestive heart failure) Current Visit: Yes Status: Acute (10) Acute on chronic respiratory failure with hypoxia and hypercapnia Current Visit: Yes Status: Acute (11) Hypertensive emergency Current Visit: Yes Status: Acute (12) Pneumonia Current Visit: Yes Status: Acute (13) TAMEKA (acute kidney injury) Current Visit: Yes Status: Acute - Summary of Assessment and Plan Summary of Assessment and Plan: TAMEKA on CKD - now requiring hemodialysis. Renal following. Had HD yesterday - Plan for permacath placement today. Off Plavix now day 5. IR to [address] permacath today. Acute on chronic respiratory failure with hypoxia and hypercapnia - Now resolved. - Acute respiratory failure upon arrival to ED likely 2/2 decompensated heart failure - Patient extubated on 11/08 - BiPAP at bedtime and prn Acute exacerbation of CHF - Acute decompensation likely 2/2 hypertensive emergency - Fluid overload state has improved. Continue metolazone, lasix at home dose and continue HD Hypertensive emergency - BP elevated at systolic of low 206/86 with TAMEKA on CKD and resp failure from CHF requiring intubation initially. Now extubated - BP now better controlled. c/w nifedipine, hydralazine 100 mg TID, PO coreg 25mg po bID. clonidine 0.1mg TD for better BP control, monitor diastolics per renal recs. Will use prn IV labetalol - Continue lasix, continue metolazone. Pneumonia - Possibly aspiration in setting of encephalopathy vs HAP with recent hospitalization - Blood culture shows E. fecalis, shaw-sensitive . Repeat blood culture x2 (11/10 ) negative till date - Completed course of unasyn. CAD - Patient has history of coronary stent 1 - EKG reveals no signs of ischemia. Not symptomatic - Continue home meds - Off plavix for permacath placement. Will resume after IR procedure. HUSAM - c/w CPAP at bedtime Diabetes mellitus - Continue SSI, accuchecks ACHS COPD - Continue oxygen supplementation as needed and nebs and BiPAP prn Morbid obesity - BMI of 45, lifestyle modification DVT prophylaxis -Heparin subcutaneous TID Discharge planning once premath place and has chairtime scheduled. - Time Spent with Patient Total time spent is greater than 50% in coordination of care (as documented) at patient's floor/unit and/or counseling patient: Internal Medicine: Result - Labs CBC & Chem 7: 11/20/17 04:30 11/20/17 04:30 Labs: Short CBC 11/20/17 Range/Units 04:30 WBC 12.4 H (4.3-11.1) K/mcL Hgb 7.8 L (11.5-15.4) g/dL Hct 24.4 L (35.3-44.9) % Plt Count 200 (140-400) K/mcL Neutrophils # 8.7 (1.6-8.9) K/mcL BMP 11/20/17 04:30 Sodium 131 L Potassium 3.4 L Chloride 93 L Carbon Dioxide 29 BUN 44 H Creatinine 4.61 H Glucose 161 H Calcium 9.2 - ABG Interpretation ABG results: ABG ABG pH 7.38 pH Units (7.32-7.45) 11/13/17 01:37 ABG pCO2 52 mmHg (35-45) H 11/13/17 01:37 ABG pO2 67 mmHg (85-104) L 11/13/17 01:37 ABG O2 Saturation 92 % (95-98) L 11/13/17 01:37 PT/INR, D-dimer PT 11.4 Seconds (9.4-12.1) 11/20/17 04:30 Consult Discharge Plan - Plan Referrals: Jay Valenzuela DO [Primary Care Provider] - (1) CAD (coronary artery disease) Qualifiers: Coronary Disease-Associated Artery/Lesion type: [place] artery [place] vs. transplanted heart: [place] heart Associated angina: without angina Qualified Code(s): I25.10 - Atherosclerotic heart disease of [place] coronary artery without angina pectoris (3) Diabetes mellitus Qualifiers: Diabetes mellitus type: type 2 Diabetes mellitus custodial insulin use: with contracts paralegal use Diabetes mellitus complication status: with kidney complications Diabetes mellitus complication detail: with chronic kidney disease Chronic kidney disease stage: stage 4 (severe) Qualified Code(s): E11.22 - Type 2 diabetes mellitus with diabetic chronic kidney disease; N18.4 - Chronic kidney disease, stage 4 (severe); Z79.4 - copywriter (current) use of insulin (9) Acute exacerbation of CHF (congestive heart failure) Qualifiers: Heart failure type: diastolic Qualified Code(s): I50.33 - Acute on chronic diastolic (congestive) heart failure (12) Pneumonia Qualifiers: Pneumonia type: due to unspecified organism Laterality: unspecified laterality Lung location: unspecified part of lung Qualified Code(s): J18.9 - Pneumonia, unspecified organism
--- NOTE | 2017-11-20 11:58 | IR Procedure Note ---
Date of procedure: 11/20/17 Consent Obtained: Written consent Timeout: Correct patient and procedure verified, Correct site verified, Time out performed, Skin prep completed Local anesthetic: Lidocaine 1% Indications: Renal insufficiency, in need of longer term access Procedure Performed: Tunneled HD catheter placement Was there an restaurant assistant manager present: Yes Senior Mechanical Estimator: Dyllan Cardoso Site/Technique: RIJV used for access. Tolerated well. 28cm cath used. Results/Findings: Working well. Estimated blood loss (cc): 2 Complications: None; Tolerated procedure well Post Procedure Treatment Plan: Monitoring in pts room Specimen: none
--- NOTE | 2017-11-20 11:59 | Pre-Sedation Evaluation ---
Pre-sedation evaluation - Pre-sedation checklist Date of procedure: 11/20/17 Procedure: permacath Recent Vitals: Last Vital Signs Temp 97.3 F L 11/20/17 10:00 Pulse 72 11/20/17 09:33 Resp 18 11/20/17 10:00 BP 174/74 11/20/17 11:30 Pulse Ox 96 11/20/17 09:33 H&P (including ROS) documented in medical record: Yes Previous reaction to sedatives/anesthetics: No Dietary Status: NPO after Midnight Airway Assessment: Patient can open mouth completely, TMJ function normal, Micrognathia (under-bite, receding chin) absent, Neck with adequate range of motion Possible difficult airway: No ASA Classification *see protocol: CLASS III-Severe systemic disease Plan of Care: Pt appropriate candidate for procedure/moderate/conscious sedation , Risks/benefits of procedure/sedation discussed w/ patient/family, If not NPO; Risk of intake outweiged by necessity to perform procedure Cardiac Registry (Cardio Only) - Functional Capacity - Clincal Frailty Scale
[2017-11-20] MEDS: Insulin LISPRO 300 UNITS/3 ML VIAL SQ SCH ×3 (12:48→21:19)
[2017-11-20] MEDS: metOLazone 5 MG TABLET PO SCH (14:57)
[2017-11-20] MEDS: cloNIDine HCl 0.1 MG TABLET PO SCH ×3 (14:57→21:25)
[2017-11-20] MEDS: hydrALAZINE 25 MG TABLET PO SCH ×3 (14:58→21:25)
[2017-11-20] MEDS: Sennosides/Docusate Sodium TABLET PO SCH ×2 (14:58→21:23)
[2017-11-20] MEDS: ALPRAZolam 1 MG TABLET PO SCH ×2 (14:58→21:24)
[2017-11-20] MEDS: Ranolazine 500 MG TAB.ER.12H PO SCH ×2 (14:58→21:24)
[2017-11-20] MEDS: Furosemide 40 MG TABLET PO SCH ×2 (14:58→15:14)
[2017-11-20] MEDS: Nystatin POWDER 30 GM BOTTLE TP SCH ×2 (15:01→21:25)
[2017-11-20] MEDS: NIFEdipine XL (24 HR) 60 MG TAB.ER.24 PO SCH (15:13)
[2017-11-20] MEDS: Famotidine 20 MG TABLET PO SCH (15:15)
[2017-11-20] MEDS: risperiDONE 1 MG TABLET PO SCH (15:15)
[2017-11-20] MEDS: Cholecalciferol (D-3) 1,000 UNIT TABLET PO SCH (15:15)
[2017-11-20] MEDS: *HR* Heparin 5,000 UNIT/ML VIAL SQ SCH (21:25)
[2017-11-21] MEDS: Ipratropium/Albuterol Neb 3 ML IH SCH ×5 (00:06→16:00)
[2017-11-21 03:45] LABS: Basophils # 0.1 K/mcL (0.0-0.2); Basophils % 0.6 %; Eosinophils # 0.4 K/mcL (0.0-0.6); Eosinophils % 3.4 %; Hematocrit 25.3 % (35.3-44.9); Hemoglobin 7.9 g/dL (11.5-15.4); Immature Granulocytes % 2.9 % (0-4); Lymphocytes # 1.4 K/mcL (0.6-4.6); Lymphocytes % 11.1 %; Mean Corpuscular HGB Conc 31.2 g/dL (31.6-35.5); Mean Corpuscular Hemoglobin 26.2 pg (28.0-33.3); Mean Corpuscular Volume 83.8 fL (83.0-100.0); Monocytes # 0.9 K/mcL (0.0-1.3); Monocytes % 7.4 %; Neutrophils # 9.4 K/mcL (1.6-8.9); Platelet Count 191 K/mcL (140-400); Red Blood Count 3.02 M/mcL (3.82-4.97); Segmented Neutrophils % 74.6 %
[2017-11-21 04:05] LABS: Calcium 8.8 mg/dL (8.6-10.3); Magnesium 1.8 mg/dL (1.6-2.6); Phosphorous 2.8 mg/dL (2.7-4.5); Potassium 3.3 mEq/L (3.5-5.1)
[2017-11-21] MEDS: *HR* Heparin 5,000 UNIT/ML VIAL SQ SCH ×2 (05:00→17:54)
[2017-11-21] MEDS: Budesonide/Formoterol 160/4.5 1 PUFF INH IH SCH (07:32)
[2017-11-21] MEDS: hydrALAZINE 25 MG TABLET PO SCH ×2 (08:43→17:54)
[2017-11-21] MEDS: risperiDONE 1 MG TABLET PO SCH (08:45)
[2017-11-21] MEDS: Famotidine 20 MG TABLET PO SCH (08:45)
[2017-11-21] MEDS: Ranolazine 500 MG TAB.ER.12H PO SCH (08:46)
[2017-11-21] MEDS: Cholecalciferol (D-3) 1,000 UNIT TABLET PO SCH (08:47)
[2017-11-21] MEDS: Sennosides/Docusate Sodium TABLET PO SCH (08:47)
[2017-11-21] MEDS: metOLazone 5 MG TABLET PO SCH (08:47)
[2017-11-21] MEDS: NIFEdipine XL (24 HR) 60 MG TAB.ER.24 PO SCH (08:48)
[2017-11-21] MEDS: ALPRAZolam 1 MG TABLET PO SCH (08:49)
[2017-11-21] MEDS: Furosemide 40 MG TABLET PO SCH ×2 (08:51→17:54)
[2017-11-21] MEDS: cloNIDine HCl 0.1 MG TABLET PO SCH ×2 (08:54→17:53)
[2017-11-21] MEDS: Insulin LISPRO 300 UNITS/3 ML VIAL SQ SCH ×3 (08:56→18:40)
--- NOTE | 2017-11-21 11:07 | Physician Discharge Referral ---
Home Health/Hosp Referral Info Transfer to: Home Health - Diagnosis (1) CAD (coronary artery disease) Status: Chronic (2) HUSAM (obstructive sleep apnea) Status: Chronic (3) Diabetes mellitus Status: Chronic (4) COPD exacerbation Status: Acute (5) Tobacco abuse Status: Chronic (6) Morbid obesity Status: Chronic (7) DVT prophylaxis Status: Acute (8) CKD (chronic kidney disease) stage 4, GFR 15-29 ml/min Status: Chronic (9) Acute exacerbation of CHF (congestive heart failure) Status: Acute (10) Acute on chronic respiratory failure with hypoxia and hypercapnia Status: Acute (11) Hypertensive emergency Status: Acute (12) Pneumonia Status: Acute (13) TAMEKA (acute kidney injury) Status: Acute - Respiratory Orders Oxygen / L per min (2 lp) Smoking Cessation: Smoking cessation has been advised. For more information, call the [place] Quit Line at [phone]-NOW. - Diet/Nutrition Diet/Nutrition Orders: Renal - Services Needed Following services are medically necessary services: Nursing, Physical Therapy - Transfer Medications Prescriptions: Carvedilol [Coreg] 25 mg PO BIDWM 30 Days #30 tablet cloNIDine HCl [CloNIDine HCl] 0.1 mg PO TID 30 Days #90 tablet metOLazone [Zaroxolyn] 5 mg PO DAILY@0730 30 Days #30 tablet NIFEdipine XL (24 HR) [Procardia XL] 120 mg PO DAILY 30 Days #60 tab.er.24 Home Medications: ALPRAZolam [Xanax 1 MG Tablet] 1 mg PO BID 04/15/17 [History] Clopidogrel [Plavix] 75 mg PO DAILY 04/15/17 [History] DULoxetine [Cymbalta] 30 mg PO BID 04/15/17 [History] Famotidine [Heartburn Prevention] 20 mg PO BID 04/15/17 [History] Fenofibrate Nanocrystallized [Triglide] 160 mg PO DAILY 04/15/17 [History] Trazodone HCl 100 mg PO HS 04/15/17 [History] risperiDONE [Risperidone] 1 mg PO DAILY 04/15/17 [History] Ranolazine [Ranexa] 500 mg PO BID 07/23/17 [History] Rosuvastatin [Crestor] 40 mg PO HS 07/23/17 [History] Albuterol Sulfate [Ventolin Hfa] 2 puff IH Q6H PRN 09/28/17 [History] Budesonide/Formoterol 160/4.5 [Symbicort 160/4.5] 2 puff IH BIDR 09/28/17 [ History] Furosemide [Lasix] 40 mg PO QPM 09/28/17 [History] HYDROcodone/Acet 5/325 mg [[place] 5-325 mg] 1 tab PO BID PRN 09/28/17 [History] Tiotropium [Spiriva] 1 puff IH DAILY 09/28/17 [History] Ergocalciferol (VITAMIN D2) [Drisdol (50,000 Unit)] 50,000 unit PO QWEEK #4 capsule 10/04/17 [Rx] Hydralazine HCl 100 mg PO TID #90 tablet 10/04/17 [Rx] Furosemide [Lasix] 60 mg PO QAM 11/07/17 [History] Carvedilol [Coreg] 25 mg PO BIDWM 30 Days #30 tablet 11/21/17 [Rx] Insulin LISPRO [Humalog] 4 unit SQ TID #0 11/21/17 [Rx] NIFEdipine XL (24 HR) [Procardia XL] 120 mg PO DAILY 30 Days #60 tab.er.24 11/21 [Rx] cloNIDine HCl [CloNIDine HCl] 0.1 mg PO TID 30 Days #90 tablet 11/21/17 [Rx] metOLazone [Zaroxolyn] 5 mg PO DAILY@0730 30 Days #30 tablet 11/21/17 [Rx] Allergies/Adverse Reactions: 3 Allergy/AdvReac Type Severity Reaction Status Date / Time morphine Allergy Hallucinati Verified 09/27/17 17:49 ng Sulfa (Sulfonamide Allergy Rash Verified 09/27/17 17:49 Antibiotics) Certification: Further, I certify that my clinical findings support that this patient is homebound (i.e. absences from home require considerable and taxing effort and are for medical reasons or adventism services or infrequently or short duration when for other reasons) because: Homebound Reason: Patient requires assistance of a person or device to safely leave home Attestation: My signature below is to certify that this patient is under my care and that I, or nurse practitioner, or a physician's assistant manager pt working with me, has a face-to -face encounter with this patient.
--- NOTE | 2017-11-21 11:11 | Discharge Summary ---
- NOTES TO OUTPATIENT PROVIDER Notes to Outpatient Provider: Started on HD TTS. Orders not resulted at time of discharge: Pending orders 11/22/17 04:00 Basic Metabolic Panel AM 0400 CBC [Complete Blood Count] [HEME] AM 0400 Magnesium AM 0400 Phosphorous AM 0400 Date of Encounter: 11/21/17 Time of Encounter: 11:09 - Discharge Diagnosis (1) CAD (coronary artery disease) Priority: Secondary Status: Chronic Qualifiers: Coronary Disease-Associated Artery/Lesion type: [place] artery [place] vs. transplanted heart: [place] heart Associated angina: without angina Qualified Code(s): I25.10 - Atherosclerotic heart disease of [place] coronary artery without angina pectoris (2) HUSAM (obstructive sleep apnea) Priority: Secondary Status: Chronic (3) Diabetes mellitus Priority: Secondary Status: Chronic Qualifiers: Diabetes mellitus type: type 2 Diabetes mellitus intermediate accountant insulin use: with intermediate accountant use Diabetes mellitus complication status: with kidney complications Diabetes mellitus complication detail: with chronic kidney disease Chronic kidney disease stage: stage 4 (severe) Qualified Code(s): E11.22 - Type 2 diabetes mellitus with diabetic chronic kidney disease; N18.4 - Chronic kidney disease, stage 4 (severe); Z79.4 - bed bug exterminator (current) use of insulin (4) COPD exacerbation Priority: Secondary Status: Acute (5) Tobacco abuse Priority: Secondary Status: Chronic (6) Morbid obesity Priority: Secondary Status: Chronic (7) DVT prophylaxis Priority: Secondary Status: Acute (8) CKD (chronic kidney disease) stage 4, GFR 15-29 ml/min Priority: Primary Status: Chronic (9) Acute exacerbation of CHF (congestive heart failure) Priority: Primary Status: Acute Qualifiers: Heart failure type: diastolic Qualified Code(s): I50.33 - Acute on chronic diastolic (congestive) heart failure (10) Acute on chronic respiratory failure with hypoxia and hypercapnia Priority: Primary Status: Acute (11) Hypertensive emergency Priority: Primary Status: Acute (12) Pneumonia Priority: Primary Status: Acute Qualifiers: Pneumonia type: due to unspecified organism Laterality: unspecified laterality Lung location: unspecified part of lung Qualified Code(s): J18.9 - Pneumonia, unspecified organism (13) TAMEKA (acute kidney injury) Priority: Primary Status: Acute Hospital course: Ms. Garcia is a 67 year old female past medical history of CHF, COPD, diabetes , hypertension, CK-MB, obesity was admitted for shortness of breath and was treated in the hospital for acute respiratory failure from exacerbation of CHF and CODP. She was initially intubated for that. Patient also had a pneumonia as well as blood cultures grew E faecalis. Patient completed a course of Unasyn. Patient also had hypertensive emergency and received treatment with IV nicardipine initially later switched to by mouth antihypertensives had difficulty controlling her blood pressure initially. Metoprolol was changed to Coreg. Her blood pressure was controlled with Coreg, nifedipine and clonidine. She had TAMEKA on CKD on admission. Her renal function worsened and she had to be started on hemodialysis. She became dialysis dependent while in the hospital She received permacath placement and was arranged for outpatient dialysis. Home health and home oxygen was arranged on discharge . Discharge discussed with: patient, nurse, social work, case management, surgical product sales consultant - Time Spent with Patient Total time spent providing and/or coordinating discharge services: Greater than 30 minutes - Discharge Medications Prescriptions: Carvedilol [Coreg] 25 mg PO BIDWM 30 Days #30 tablet cloNIDine HCl [CloNIDine HCl] 0.1 mg PO TID 30 Days #90 tablet metOLazone [Zaroxolyn] 5 mg PO DAILY@0730 30 Days #30 tablet NIFEdipine XL (24 HR) [Procardia XL] 120 mg PO DAILY 30 Days #60 tab.er.24 Home Medications: ALPRAZolam [Xanax 1 MG Tablet] 1 mg PO BID 04/15/17 [History] Clopidogrel [Plavix] 75 mg PO DAILY 04/15/17 [History] DULoxetine [Cymbalta] 30 mg PO BID 04/15/17 [History] Famotidine [Heartburn Prevention] 20 mg PO BID 04/15/17 [History] Fenofibrate Nanocrystallized [Triglide] 160 mg PO DAILY 04/15/17 [History] Trazodone HCl 100 mg PO HS 04/15/17 [History] risperiDONE [Risperidone] 1 mg PO DAILY 04/15/17 [History] Ranolazine [Ranexa] 500 mg PO BID 07/23/17 [History] Rosuvastatin [Crestor] 40 mg PO HS 07/23/17 [History] Albuterol Sulfate [Ventolin Hfa] 2 puff IH Q6H PRN 09/28/17 [History] Budesonide/Formoterol 160/4.5 [Symbicort 160/4.5] 2 puff IH BIDR 09/28/17 [ History] Furosemide [Lasix] 40 mg PO QPM 09/28/17 [History] HYDROcodone/Acet 5/325 mg [Ora 5-325 mg] 1 tab PO BID PRN 09/28/17 [History] Tiotropium [Spiriva] 1 puff IH DAILY 09/28/17 [History] Ergocalciferol (VITAMIN D2) [Drisdol (50,000 Unit)] 50,000 unit PO QWEEK #4 capsule 10/04/17 [Rx] Hydralazine HCl 100 mg PO TID #90 tablet 10/04/17 [Rx] Furosemide [Lasix] 60 mg PO QAM 11/07/17 [History] Carvedilol [Coreg] 25 mg PO BIDWM 30 Days #30 tablet 11/21/17 [Rx] Insulin LISPRO [Humalog] 4 unit SQ TID #0 11/21/17 [Rx] NIFEdipine XL (24 HR) [Procardia XL] 120 mg PO DAILY 30 Days #60 tab.er.24 11/21 [Rx] cloNIDine HCl [CloNIDine HCl] 0.1 mg PO TID 30 Days #90 tablet 11/21/17 [Rx] metOLazone [Zaroxolyn] 5 mg PO DAILY@0730 30 Days #30 tablet 11/21/17 [Rx] Allergies/Adverse Reactions: 3 Allergy/AdvReac Type Severity Reaction Status Date / Time morphine Allergy Hallucinati Verified 09/27/17 17:49 ng Sulfa (Sulfonamide Allergy Rash Verified 09/27/17 17:49 Antibiotics) Date of admission: 11/07/17 03:14 Primary care physician: Jay Valenzuela Consults: 11/08/17 18:56 Consult to Glue Reel Operator [CONS] Routine Reason for SW Consult: discharge needs. possible need for passport, meals on wheels or similar help. 11/09/17 11:51 Consult to Nephrology [CONS] Routine Consulting Provider: Kidney Amina/HINA/MONY/JENS Reason for Consult: CKD stage 4, upward trending Cr Time Notified: 11:52 Call Completed: Yes 11/09/17 13:04 Consult to Invasive Line Access Team [CONS] Routine Reason for Consult: Limited access Line Type: EPIV 11/10/17 07:40 Consult to Physical Therapy [CONS] Routine Comment: Evaluate, develop and implement POC Reason for Consult: Please assist with patient regaining strength to complete ADLs Does patient have active BEDREST order?: No Is patient medically & hemodynamically stable?: Yes 11/10/17 07:43 Consult to Occupational Therapy [CONS] Routine Comment: Evaluate, develop and implement POC Reason for Consult: Please assist with patient regaining strength to complete ADLs Does patient have active BEDREST order?: No Is patient medically & hemodynamically stable?: Yes 11/11/17 13:03 Consult to Interventional Radiology [CONS] Stat Consulting Provider: Radiology Interventional Cols Reason for Consult: temp IJ HD catheter placement Call Completed: No 11/11/17 13:30 Consult to Dialysis [CONS] ONCE 11/13/17 08:00 Consult to Dialysis [CONS] ONCE 11/16/17 09:45 Consult to Dialysis [CONS] ONCE 11/19/17 11:13 Consult to Interventional Radiology [CONS] Routine Consulting Provider: Radiology Interventional Cols Reason for Consult: permcath placment too replace temp line Call Completed: No 11/19/17 11:16 Consult to Glue Reel Operator [CONS] Routine Reason for SW Consult: outpatient HD placement (permcath planned for tomorrow ) 11/20/17 07:45 Consult to Dialysis [CONS] ONCE Discharging clinician: Zhou Stringer - Constitutional Vitals: Temp Pulse Resp BP Pulse Ox 97.9 F 63 16 162/54 94 11/21/17 07:22 11/21/17 07:22 11/21/17 07:30 11/21/17 07:30 11/21/17 07:30 General appearance: Present: morbidly obese (Intubated and sedated) Exam: Gen: Morbidly obese in no form of distress HEENT: Right IJ [place] catheter, oral mucosa is moist, no cyanosis or jaundice. Chest: CTAB Heart: S1, S2 only, no m/g/r Abdomen: Obese, soft, not tender Skin: no rash. Extremities: No edema Neuro: Awake and alert, oriented to place and person, follows commands, no focal deficits at this time. - Patient Status Disposition: Home Health Service Condition: Fair Functional capacity at discharge: uses cane/walker - Discharge Instructions Follow Up With: Jay Valenzuela DO [Primary Care Provider] - - Diet and Activity Activity: as per physical therapy
[2017-11-21] MEDS: Nystatin POWDER 30 GM BOTTLE TP SCH (12:34)
[2017-11-21] MEDS ORDERED: *HR* Heparin 10,000 UNIT/10 ML VIAL IV PRN (13:49)
[2017-11-21] MEDS ORDERED: 0.9 % Sodium Chloride 250 ML IVC PRN (13:49)
[2017-11-21] MEDS ORDERED: 0.9 % Sodium Chloride 1,000 ML PRIME SCH (14:00)
[2017-11-21 17:27] VITALS: BP 152/55
--- NOTE | 2017-11-22 14:39 | Nephrology Progress Note ---
Date of Encounter: 11/21/17 Time of Encounter: 13:00 - Assessment and Plan (1) TAMEKA (acute kidney injury) Status: Acute HD today for 2 hrs to get her on her new outpatient regimen of T--Sat. Her next HD after this willl be next week thursday at the outpatient facility UOP noted at 1150cc n the past 24hrs which is great lytes stable except potassium still low at 3.3 despite increase k bath, will try again today (2) CKD (chronic kidney disease) stage 4, GFR 15-29 ml/min Status: Chronic (3) Acute exacerbation of CHF (congestive heart failure) Status: Acute Strict I/Os Continue fluid restriction Qualifiers: Heart failure type: diastolic Qualified Code(s): I50.33 - Acute on chronic diastolic (congestive) heart failure (4) Acute and chronic respiratory failure with hypercapnia Status: Acute Rseolved Subjective Principal diagnosis: Acute respiratory failure Interval history: Pt seen and examined feels good with no complaints. Eager to go home today after abbreviated HD today Objective - Vital Signs Vital signs: Vital Signs Temp Resp BP 11/21/17 17:27 97.1 F L 18 152/55 11/21/17 17:10 131/57 11/21/17 16:55 140/56 11/21/17 16:40 131/59 11/21/17 16:25 123/55 11/21/17 16:10 133/56 11/21/17 15:55 132/53 11/21/17 15:40 130/56 11/21/17 15:25 135/57 11/21/17 15:10 97.5 F L 18 149/58 Intake and Output 11/21/17 11/22/17 11/22/17 23:59 07:59 15:59 Intake Total 240 / 240 Output Total 2600 / 2600 Balance -2360 / -2360 Intake: Oral 240 / 240 Output: Urine 0 / 0 Total Dialysis (HD) Output 2600 / 2600 Other: Meal Dinner Percent of Meal Consumed 25% Blood Glucose* 167 Hemodialysis Net Fluid Removed 2000 (mL) - General Appearance General appearance: Present: chronically ill (NAD) EENT: Present: ATNC, mucous membranes moist Neck: Present: no JVD, supple Respiratory: Present: clear Cardiology: Present: edema (trace, improved ), normal S1, normal S2 Dialysis Vascular Access: Venous Catheter (permcath) Gastrointestinal: Present: no tenderness, no guarding, obese Integumentary: Present: warm and dry Neurologic: Present: no focal deficit Musculoskeletal: Present: no deformities Psychiatric: Present: mood/affect appropriate, cooperative - Lab 11/21/17 03:23 11/21/17 03:23 Most recent lab results ABG pH 7.38 pH Units (7.32-7.45) 11/13/17 01:37 ABG pCO2 52 mmHg (35-45) H 11/13/17 01:37 ABG pO2 67 mmHg (85-104) L 11/13/17 01:37 ABG HCO3 31 mEq/L (21-27) H 11/13/17 01:37 ABG O2 Saturation 92 % (95-98) L 11/13/17 01:37 Calcium 8.8 mg/dL (8.6-10.3) 11/21/17 03:23 Phosphorus 2.8 mg/dL (2.7-4.5) 11/21/17 03:23 Magnesium 1.8 mg/dL (1.6-2.6) 11/21/17 03:23 Urine Creatinine 86 mg/dL 11/09/17 18:00 Urine Sodium 21.8 mEq/L 11/09/17 18:00 Urine Total Protein 395 mg/dL (1-14) H 11/09/17 18:00 Consult Discharge Plan - Plan Instructions: Metolazone (By mouth), Nifedipine (By mouth), Clonidine (By mouth ), Carvedilol (By mouth), Chronic Obstructive Pulmonary Disease (DC) Referrals: Jay Valenzuela DO [Primary Care Provider] - Prescriptions: Carvedilol [Coreg] 25 mg PO BIDWM 30 Days #30 tablet cloNIDine HCl [CloNIDine HCl] 0.1 mg PO TID 30 Days #90 tablet metOLazone [Zaroxolyn] 5 mg PO DAILY@0730 30 Days #30 tablet NIFEdipine XL (24 HR) [Procardia XL] 120 mg PO DAILY 30 Days #60 tab.er.24
--- NOTE | 2017-11-22 14:45 | Nephrology Progress Note ---
Date of Encounter: 11/20/17 Time of Encounter: 14:00 - Assessment and Plan (1) TAMEKA (acute kidney injury) Status: Acute Continue HD with UF as tolerated. SCr noted at 4.61, still no signs of renal recovery UOP noted at 1400cc in the past 24hrs which is great lytes stable except potassium still low at 3.4, will increase k bath (2) CKD (chronic kidney disease) stage 4, GFR 15-29 ml/min Status: Chronic Baseline GFR appears to be in the 20s since july (3) Acute exacerbation of CHF (congestive heart failure) Status: Acute Strict I/Os Continue fluid restriction Qualifiers: Heart failure type: diastolic Qualified Code(s): I50.33 - Acute on chronic diastolic (congestive) heart failure (4) Acute and chronic respiratory failure with hypercapnia Status: Acute Rseolved Subjective Principal diagnosis: Acute respiratory failure Interval history: Pt seen and examined on HD with no complaints. Spoke to social worker assistant to arrange HD outpatient: might need to switch to T-Th-Sat per pt's request. sp permacath placement today. Objective - Vital Signs Vital signs: Vital Signs Temp Resp BP 11/21/17 17:27 97.1 F L 18 152/55 11/21/17 17:10 131/57 11/21/17 16:55 140/56 11/21/17 16:40 131/59 11/21/17 16:25 123/55 11/21/17 16:10 133/56 11/21/17 15:55 132/53 11/21/17 15:40 130/56 11/21/17 15:25 135/57 11/21/17 15:10 97.5 F L 18 149/58 Intake and Output 11/21/17 11/22/17 11/22/17 23:59 07:59 15:59 Intake Total 240 / 240 Output Total 2600 / 2600 Balance -2360 / -2360 Intake: Oral 240 / 240 Output: Urine 0 / 0 Total Dialysis (HD) Output 2600 / 2600 Other: Meal Dinner Percent of Meal Consumed 25% Blood Glucose* 167 Hemodialysis Net Fluid Removed 2000 (mL) - General Appearance General appearance: Present: chronically ill EENT: Present: ATNC, mucous membranes moist Neck: Present: no JVD, supple Additional Comments: good areation ant bilat Cardiology: Present: edema (improving), normal S1, normal S2 Dialysis Vascular Access: Venous Catheter (permcath, new) Gastrointestinal: Present: no tenderness, no guarding, obese Integumentary: Present: warm and dry Neurologic: Present: no focal deficit Musculoskeletal: Present: no deformities Psychiatric: Present: mood/affect appropriate, cooperative - Lab 11/21/17 03:23 11/21/17 03:23 Most recent lab results ABG pH 7.38 pH Units (7.32-7.45) 11/13/17 01:37 ABG pCO2 52 mmHg (35-45) H 11/13/17 01:37 ABG pO2 67 mmHg (85-104) L 11/13/17 01:37 ABG HCO3 31 mEq/L (21-27) H 11/13/17 01:37 ABG O2 Saturation 92 % (95-98) L 11/13/17 01:37 Calcium 8.8 mg/dL (8.6-10.3) 11/21/17 03:23 Phosphorus 2.8 mg/dL (2.7-4.5) 11/21/17 03:23 Magnesium 1.8 mg/dL (1.6-2.6) 11/21/17 03:23 Urine Creatinine 86 mg/dL 11/09/17 18:00 Urine Sodium 21.8 mEq/L 11/09/17 18:00 Urine Total Protein 395 mg/dL (1-14) H 11/09/17 18:00 Consult Discharge Plan - Plan Instructions: Metolazone (By mouth), Nifedipine (By mouth), Clonidine (By mouth ), Carvedilol (By mouth), Chronic Obstructive Pulmonary Disease (DC) Referrals: Jay Valenzuela DO [Primary Care Provider] - Prescriptions: Carvedilol [Coreg] 25 mg PO BIDWM 30 Days #30 tablet cloNIDine HCl [CloNIDine HCl] 0.1 mg PO TID 30 Days #90 tablet metOLazone [Zaroxolyn] 5 mg PO DAILY@0730 30 Days #30 tablet NIFEdipine XL (24 HR) [Procardia XL] 120 mg PO DAILY 30 Days #60 tab.er.24
== END 2017-11-21 20:21 | disposition home health service (06) | DRG 871 ==
LOC: EMEROOARM 23:44 → ICNU 11-07 03:14 → SUATTDRO 11-07 03:14 → ICNU 11-07 05:20 → 2NENU 11-12 18:34
PROVIDERS: ADMIT Family Medicine; ATTEND Internal Medicine
PROC: IRPERMA (2017-11-20 12:00)

== ENCOUNTER 2017-12-15 07:13 | Inpatient (IN) ==
[2017-12-15] MEDS ORDERED: Levofloxacin 750 MG/150 ML 750 MG/150 ML BAG IVPB ONE (07:28)
[2017-12-15] MEDS ORDERED: Piperacillin/Tazobactam 3.375 GM in Water for inj. (sterile) 20 ML 20 ML IVP ONE (07:28)
[2017-12-15] MEDS ORDERED: 0.9 % Sodium Chloride 250 ML IVC ONE (07:35)
--- NOTE | 2017-12-15 07:48 | Emergency Department Note ---
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 Denies: chills, rigors, rhinorrhea, cough, vomiting Improves with: nothing Worsens with: nothing Treatments prior to arrival fever: none - Related Data Home Medications Medication Instructions Recorded Confirmed RX: ALPRAZolam [Xanax 1 MG Tablet] 1 mg PO BID 04/15/17 12/15/17 RX: Clopidogrel [Plavix] 75 mg PO DAILY 04/15/17 12/15/17 RX: DULoxetine [Cymbalta] 30 mg PO BID 04/15/17 12/15/17 RX: Famotidine [Heartburn 20 mg PO DAILY 04/15/17 12/15/17 Prevention] RX: risperiDONE [Risperidone] 1 mg PO HS 04/15/17 12/15/17 RX: Ranolazine [Ranexa] 500 mg PO BID 07/23/17 12/15/17 RX: Rosuvastatin [Crestor] 40 mg PO QPM 07/23/17 12/15/17 RX: Budesonide/Formoterol 160/4.5 2 puff IH BIDR 09/28/17 12/15/17 [Symbicort 160/4.5] RX: Furosemide [Lasix] 40 mg PO DAILY 09/28/17 12/15/17 RX: HYDROcodone/Acet 5/325 mg 1 tab PO BID PRN 09/28/17 12/15/17 [[place] 5-325 mg] RX: Tiotropium [Spiriva] 1 puff IH DAILY 09/28/17 12/15/17 RX: Furosemide [Lasix] 40 mg PO QAM 11/07/17 12/15/17 Aspirin [Lo-Dose Aspirin EC] 81 mg PO DAILY 12/15/17 12/15/17 NIFEdipine [Nifedipine ER] 90 mg PO DAILY 12/15/17 12/15/17 RX: Insulin Regular U-500 [HumuLIN 70 unit SQ TID 12/15/17 12/15/17 R U-500] RX: Trazodone HCl 100 mg PO HS 12/15/17 12/15/17 Sevelamer [Renvela] 800 mg PO TID 12/15/17 12/15/17 Previous Rx's Medication Instructions Recorded RX: Ergocalciferol (VITAMIN D2) 50,000 unit PO QWEEK #4 capsule 10/04/17 [Drisdol (50,000 Unit)] RX: Hydralazine HCl 100 mg PO TID #90 tablet 10/04/17 RX: Carvedilol [Coreg] 25 mg PO BIDWM 30 Days #30 tablet 11/21/17 RX: cloNIDine HCl [CloNIDine HCl] 0.1 mg PO TID 30 Days #90 tablet 11/21/17 RX: metOLazone [Zaroxolyn] 5 mg PO DAILY@0730 30 Days #30 11/21/17 tablet Allergies Allergy/AdvReac Type Severity Reaction Status Date / Time morphine Allergy Hallucinati Verified 09/27/17 17:49 ng Sulfa (Sulfonamide Allergy Rash Verified 09/27/17 17:49 Antibiotics) Limitations: ROS unobtainable due to patients medical condition Fever PMH - Past Medical History Medical history: Reports: arthritis, CHF, COPD, diabetes, GERD, hyperlipidemia, hypertension, RA, renal disease Reports: Other (CAP in October with positive blood cultures, HD catheter placed - Right upper chest ) Surgical history: Reports: angioplasty/stent, appendectomy, , cataract Psychiatric history: Reports: anxiety, bipolar - Social History Smoking Status: Current every day smoker Alcohol use: Reports: none Drug use: Reports: none Physical Exam - General Limitations: no limitations General appearance: in no apparent distress, lethargic - Head Head exam: atraumatic, normocephalic, normal inspection - Eye Eye exam: Present: PERRL, conjunctival injection (mild, right), periorbital swelling (mild, inferior orbital), other (mild blepharitis). Absent: scleral icterus, nystagmus, miosis, mydriasis, periorbital tenderness - ENT ENT exam: mucous membranes dry - Neck Neck exam: Present: normal inspection, full ROM, trachea midline. Absent: tenderness, meningismus, lymphadenopathy - Chest Chest inspection: Present: normal inspection - Respiratory Respiratory exam: Present: respiratory distress (mild tachypnea). Absent: wheezes, stridor, accessory muscle use, prolonged expiratory phase - Expanded Respiratory Exam Location: decreased breath sounds: Right, Upper, Lower - Cardiovascular Cardiovascular exam: Present: regular rate, normal rhythm - Abdominal Exam Abdominal exam: Present: soft, Non-Tender, normal bowel sounds. Absent: distention, guarding, rigidity, organomegaly, ascites, mass, pulsatile mass - Extremities Exam Extremities exam: Present: normal capillary refill, pedal edema. Absent: tenderness, joint swelling, calf tenderness - Neurological Exam Neurological exam: Present: other (somnolent, opens eyes to verbal stimulus, answers questions appropriately but quickly goes back to sleep. Oriented to person and that she is in a hospital.) - Psychiatric Psychiatric exam: Present: normal affect, normal mood - Skin Skin exam: Present: warm, dry, intact, normal color, other (febrile) Course Course Narrative: Patient with history of end-stage renal disease was due for dialysis today. However, when her daughter woke her up, she noticed that the patient felt very warm and was somewhat confused. She was also very sleepy. She called the squad to bring her to the hospital. In route the paramedics checked a temperature and she is febrile to 103.2. She also had some ST depression on their EKG. She is very somnolent and unable to give a history. She is mildly confused, oriented to person and that she is in a hospital, however, she is unable to tell me which hospital she is in. She is mildly tachypneic but not tachycardic. Heart rhythm is regular. Lung sounds are clear but decreased on the right. She has 2+ nonpitting edema bilateral feet to mid blank. She has a hemodialysis catheter in the right upper chest with no surrounding erythema or purulent drainage. Abdomen is soft and nontender without mass. Her grandson and two other family members are present at bedside. He knows some of her past medical history and states that she has had a diarrheal illness recently, up until last week. He states that she does still make urine. She has a history of CHF, COPD, not on home O2, aside from CPAP at night for HUSAM. She also has hypertension, diabetes and coronary artery disease and is on Plavix. Suspect sepsis. Labs, fluids, antibiotics and antipyretics ordered. Case discussed with Dr. Sheffield. He has had myzu-ti-pfad time with patient and agrees with the assessment, plan. He also added a VBG. Patient's white blood cell count is 32, which raises concern for possible C. difficile colitis, among other systemic infections. Remainder of labs are pending. EKG shows a sinus rhythm, rate of [address] depression. This is new compared to November 07 of this year, no ST elevation noted. She has a prolo nged QTC at 521. Chest x-ray portable, one view read by the radiologist as trace right pleural effusion, pulmonary vascular congestion, mild edema. Patient's potassium is 2.5, glucose 189, troponin 0.08. She received a 250 mL bolus of normal saline. Despite the concern for sepsis. She appears to be fluid overloaded with history of CHF and end-stage renal disease. She was supposed to have dialysis today. We felt that multiple liters of normal saline would be counterproductive. K and Mag replaced. Aspirin given for elevate trop and ST depression. Tylenol given for fever. Case discussed with the Hospitalist, Dr. Stringer. He has seen the patient and accepted. He requests that a CT of the chest be ordered. This has been done. Patient has sterile pyuria, culture ordered. She has a central catheter for HD. Cultures obtained from this line as well as from peripheral vein. Suspect sepsis from central line or HAP. ABX already started. - Reevaluation(s) Reevaluation #1: Vitals stable. Temp improved. Time: 09:37 Vital Signs Temperature 103.2 F H 12/15/17 07:16 Pulse Rate 91 12/15/17 07:16 Respiratory Rate 22 12/15/17 07:16 Blood Pressure 147/76 12/15/17 07:16 O2 Sat by Pulse Oximetry 95 12/15/17 07:16 Temperature 100.1 F H 12/16/17 14:05 Pulse Rate 75 12/16/17 10:57 Respiratory Rate 18 12/16/17 14:05 Blood Pressure 136/58 12/16/17 15:20 O2 Sat by Pulse Oximetry 96 12/16/17 10:57 Oxygen Delivery Oxygen Delivery Nasal Cannula Fever - Medical Records Medical records reviewed: Yes I reviewed the patient's medical records. - Lab Data Lab results reviewed: Yes I reviewed the patient's lab results. Lab results narrative: Laboratory Last Values WBC 32.1 K/mcL (4.3-11.1) H* 12/15/17 07:27 RBC 4.17 M/mcL (3.82-4.97) 12/15/17 07:27 Hgb 11.1 g/dL (11.5-15.4) L 12/15/17 07:27 Hct 34.4 % (35.3-44.9) L 12/15/17 07:27 MCV 82.5 fL (83.0-100.0) L 12/15/17 07:27 MCH 26.6 pg (28.0-33.3) L 12/15/17 07:27 MCHC 32.3 g/dL (31.6-35.5) 12/15/17 07:27 RDW 16.5 % (11.5-14.5) H 12/15/17 07:27 Plt Count 226 K/mcL (140-400) 12/15/17 07:27 MPV 9.4 fL (9.4-12.4) 12/15/17 07:27 Seg Neutrophils % 83.0 % 12/15/17 07:27 Lymphocytes % 1.0 % 12/15/17 07:27 Neutrophils # 26.6 K/mcL (1.6-8.9) H 12/15/17 07:27 Lymphocytes # 0.3 K/mcL (0.6-4.6) L 12/15/17 07:27 Platelet Estimate Normal (Normal) 12/15/17 07:27 PT 14.2 Seconds (9.4-12.1) H 12/15/17 07:27 INR 1.3 12/15/17 07:27 APTT 33.4 Seconds (26.0-36.0) 12/15/17 07:27 VBG pH 7.44 pH Units (7.32-7.42) H 12/15/17 08:13 VBG pCO2 40 mmHg (41-51) L 12/15/17 08:13 VBG pO2 120 mmHg (25-50) H 12/15/17 08:13 VBG HCO3 27 mEq/L (21-27) 12/15/17 08:13 Sodium 131 mEq/L (136-145) L 12/15/17 07:27 Potassium 2.5 mEq/L (3.5-5.1) L* 12/15/17 07:27 Chloride 94 mEq/L (98-107) L 12/15/17 07:27 Carbon Dioxide 24 mEq/L (23-29) 12/15/17 07:27 BUN 28 mg/dL (8-23) H 12/15/17 07:27 Creatinine 5.38 mg/dL (0.60-1.20) H 12/15/17 07:27 Est GFR ( Amer) 10 (> 60) L 12/15/17 07:27 Est GFR (Non-Af Amer) 8 (> 60) L 12/15/17 07:27 BUN/Creatinine Ratio 5 (6-26) L 12/15/17 07:27 Glucose 189 mg/dL (70-105) H 12/15/17 07:27 Calculated Osmolality 283 (280-300) 12/15/17 07:27 Lactic Acid 1.0 mmol/L (0.5-2.2) 12/15/17 07:27 Calcium 9.2 mg/dL (8.6-10.3) 12/15/17 07:27 Phosphorus 2.4 mg/dL (2.7-4.5) L 12/15/17 07:27 Magnesium 1.3 mg/dL (1.6-2.6) L 12/15/17 07:27 Total Bilirubin 0.5 mg/dL (0.3-1.0) 12/15/17 07:27 Direct Bilirubin 0.1 mg/dL (0.0-0.2) 12/15/17 07:27 Indirect Bilirubin 0.4 mg/dL (0.0-1.2) 12/15/17 07:27 AST 27 Units/L (13-39) 12/15/17 07:27 ALT 10 Units/L (7-52) 12/15/17 07:27 Alkaline Phosphatase 52 Units/L (34-104) 12/15/17 07:27 Troponin I 0.08 ng/mL (< 0.04) H* 12/15/17 07:27 Serum Total Protein 6.0 g/dL (6.4-8.9) L 12/15/17 07: Albumin 3.2 g/dL (3.5-5.7) L 12/15/17 07: Globulin 2.8 g/dL (2.4-3.5) 12/15/17 07: Albumin/Globulin Ratio 1.1 (1.1-2.2) 12/15/17 07:27 Urine Color Dark Yellow (Yellow) 12/15/17 08:07 Urine Clarity Turbid (Clear) A 12/15/17 08:07 Urine pH 5.0 pH Units (5.0-8.0) 12/15/17 08:07 Ur Specific [place] 1.022 (1.010-1.025) 12/15/17 08:07 Urine Protein >=1000 mg/dL (Neg-Trace) H 12/15/17 08:07 Urine Glucose (UA) 250 mg/dL (Normal) H 12/15/17 08:07 Urine Ketones Trace mg/dL (Negative) H 12/15/17 08:07 Urine Blood Negative (Negative) 12/15/17 08:07 Urine Nitrite Negative (Negative) 12/15/17 08:07 Urine Bilirubin Small (Negative) H 12/15/17 08:07 Urine Urobilinogen Normal mg/dL (Normal) 12/15/17 08:07 Ur Leukocyte Esterase Moderate (Negative) H 12/15/17 08:07 Urine Microscopic RBC 0-3 per hpf (0-3) 12/15/17 08:07 Urine Microscopic WBC TNTC per hpf (0-3) H 12/15/17 08:07 Ur Squamous Epith Cells Many per lpf (None-Few) H 12/15/17 08:07 Ur Transition Epith Cell Few per hpf (None-Few) 12/15/17 08:07 Ur Renal Epithelial Cell Few per hpf (None-Few) 12/15/17 08:07 Urine Bacteria None Seen per hpf (None-Few) 12/15/17 08:07 Granular Casts Moderate per lpf (None Seen) H 12/15/17 08:07 Waxy Casts Few per lpf (None Seen) H 12/15/17 08:07 Ur Culture Indicated? NO. (NO) A 12/15/17 08:07 Result diagrams: 12/16/17 01:39 12/16/17 01:39 Lab Results 12/15/17 12/15/17 12/15/17 Range/Units 07:27 07:27 07:27 WBC 32.1 H* (4.3-11.1) K/mcL RBC 4.17 (3.82-4.97) M/mcL Hgb 11.1 L (11.5-15.4) g/dL Hct 34.4 L (35.3-44.9) % MCV 82.5 L (83.0-100.0) fL MCH 26.6 L (28.0-33.3) pg MCHC 32.3 (31.6-35.5) g/dL RDW 16.5 H (11.5-14.5) % Plt Count 226 (140-400) K/mcL MPV 9.4 (9.4-12.4) fL Seg Neutrophils % 83.0 % Lymphocytes % 1.0 % Neutrophils # 26.6 H (1.6-8.9) K/mcL Lymphocytes # 0.3 L (0.6-4.6) K/mcL Platelet Estimate Normal (Normal) PT 14.2 H (9.4-12.1) Seconds INR 1.3 APTT 33.4 (26.0-36.0) Seconds VBG pH (7.32-7.42) pH Units VBG pCO2 (41-51) mmHg VBG pO2 (25-50) mmHg VBG HCO3 (21-27) mEq/L Sodium 131 L (136-145) mEq/L Potassium 2.5 L* (3.5-5.1) mEq/L Chloride 94 L (98-107) mEq/L Carbon Dioxide 24 (23-29) mEq/L BUN 28 H (8-23) mg/dL Creatinine 5.38 H (0.60-1.20) mg/dL Est GFR ( Amer) 10 L (> 60) Est GFR (Non-Af Amer) 8 L (> 60) BUN/Creatinine Ratio 5 L (6-26) Glucose 189 H (70-105) mg/dL Calculated Osmolality 283 (280-300) Lactic Acid (0.5-2.2) mmol/L Calcium 9.2 (8.6-10.3) mg/dL Phosphorus 2.4 L (2.7-4.5) mg/dL Magnesium 1.3 L (1.6-2.6) mg/dL Total Bilirubin 0.5 (0.3-1.0) mg/dL Direct Bilirubin 0.1 (0.0-0.2) mg/dL Indirect Bilirubin 0.4 (0.0-1.2) mg/dL AST 27 (13-39) Units/L ALT 10 (7-52) Units/L Alkaline Phosphatase 52 (34-104) Units/L Troponin I 0.08 H* (< 0.04) ng/mL Serum Total Protein 6.0 L (6.4-8.9) g/dL Albumin 3.2 L (3.5-5.7) g/dL Globulin 2.8 (2.4-3.5) g/dL Albumin/Globulin Ratio 1.1 (1.1-2.2) Urine Color (Yellow) Urine Clarity (Clear) Urine pH (5.0-8.0) pH Units Ur Specific [place] (1.010-1.025) Urine Protein (Neg-Trace) mg/dL Urine Glucose (UA) (Normal) mg/dL Urine Ketones (Negative) mg/dL Urine Blood (Negative) Urine Nitrite (Negative) Urine Bilirubin (Negative) Urine Urobilinogen (Normal) mg/dL Ur Leukocyte Esterase (Negative) Urine Microscopic RBC (0-3) per hpf Urine Microscopic WBC (0-3) per hpf Ur Squamous Epith Cells (None-Few) per lpf Ur Transition Epith Cell (None-Few) per hpf Ur Renal Epithelial Cell (None-Few) per hpf Urine Bacteria (None-Few) per hpf Granular Casts (None Seen) per lpf Waxy Casts (None Seen) per lpf Ur Culture Indicated? (NO) Urine Creatinine mg/dL Protein/Creatinin Ratio (0.00-0.20) mg/mg Urine Total Protein (1-14) mg/dL A. baumannii (PCR) (Not Detect) [place] albicans (PCR) (Not Detect) C. glabrata (PCR) (Not Detect) C. krusei (PCR) (Not Detect) C. parapsilosis (PCR) (Not Detect) C. tropicalis (PCR) (Not Detect) Enterobacteriac sp PCR (Not Detect) E. cloacae complex PCR (Not Detect) Enterococcus sp PCR (Not Detect) E. coli (PCR) (Not Detect) H. influenzae (PCR) (Not Detect) Klebsiella oxytoca PCR (Not Detect) Klebsiella pneumoniae (Not Detect) List. monocytogenes PCR (Not Detect) N. meningitidis (PCR) (Not Detect) Proteus species (PCR) (Not Detect) Serratia marcescens PCR (Not Detect) Staphylococcus sp PCR (Not Detect) Staph aureus (PCR) (Not Detect) mecA-Methicil Res Gene (Not Detect) Streptococcus sp PCR (Not Detect) Group A Strep DNA (Not Detect) Group B Strep (PCR) (Not Detect) Strep pneumoniae (PCR) (Not Detect) P. aeruginosa (PCR) (Not Detect) Sil/B-Vanco Res Genes (Not Detect) KPC (blaKPC) Detect PCR (Not Detect) 12/15/17 12/15/17 12/15/17 Range/Units 07:27 08:01 08:07 WBC (4.3-11.1) K/mcL RBC (3.82-4.97) M/mcL Hgb (11.5-15.4) g/dL Hct (35.3-44.9) % MCV (83.0-100.0) fL MCH (28.0-33.3) pg MCHC (31.6-35.5) g/dL RDW (11.5-14.5) % Plt Count (140-400) K/mcL MPV (9.4-12.4) fL Seg Neutrophils % % Lymphocytes % % Neutrophils # (1.6-8.9) K/mcL Lymphocytes # (0.6-4.6) K/mcL Platelet Estimate (Normal) PT (9.4-12.1) Seconds INR APTT (26.0-36.0) Seconds VBG pH (7.32-7.42) pH Units VBG pCO2 (41-51) mmHg VBG pO2 (25-50) mmHg VBG HCO3 (21-27) mEq/L Sodium (136-145) mEq/L Potassium (3.5-5.1) mEq/L Chloride (98-107) mEq/L Carbon Dioxide (23-29) mEq/L BUN (8-23) mg/dL Creatinine (0.60-1.20) mg/dL Est GFR ( Amer) (> 60) Est GFR (Non-Af Amer) (> 60) BUN/Creatinine Ratio (6-26) Glucose (70-105) mg/dL Calculated Osmolality (280-300) Lactic Acid 1.0 (0.5-2.2) mmol/L Calcium (8.6-10.3) mg/dL Phosphorus (2.7-4.5) mg/dL Magnesium (1.6-2.6) mg/dL Total Bilirubin (0.3-1.0) mg/dL Direct Bilirubin (0.0-0.2) mg/dL Indirect Bilirubin (0.0-1.2) mg/dL AST (13-39) Units/L ALT (7-52) Units/L Alkaline Phosphatase (34-104) Units/L Troponin I (< 0.04) ng/mL Serum Total Protein (6.4-8.9) g/dL Albumin (3.5-5.7) g/dL Globulin (2.4-3.5) g/dL Albumin/Globulin Ratio (1.1-2.2) Urine Color Dark Yellow (Yellow) Urine Clarity Turbid A (Clear) Urine pH 5.0 (5.0-8.0) pH Units Ur Specific [place] 1.022 (1.010-1.025) Urine Protein >=1000 H (Neg-Trace) mg/dL Urine Glucose (UA) 250 H (Normal) mg/dL Urine Ketones Trace H (Negative) mg/dL Urine Blood Negative (Negative) Urine Nitrite Negative (Negative) Urine Bilirubin Small H (Negative) Urine Urobilinogen Normal (Normal) mg/dL Ur Leukocyte Esterase Moderate H (Negative) Urine Microscopic RBC 0-3 (0-3) per hpf Urine Microscopic WBC TNTC H (0-3) per hpf Ur Squamous Epith Cells Many H (None-Few) per lpf Ur Transition Epith Cell Few (None-Few) per hpf Ur Renal Epithelial Cell Few (None-Few) per hpf Urine Bacteria None Seen (None-Few) per hpf Granular Casts Moderate H (None Seen) per lpf Waxy Casts Few H (None Seen) per lpf Ur Culture Indicated? NO. A (NO) Urine Creatinine mg/dL Protein/Creatinin Ratio (0.00-0.20) mg/mg Urine Total Protein (1-14) mg/dL A. baumannii (PCR) Not Detected (Not Detect) [place] albicans (PCR) Not Detected (Not Detect) C. glabrata (PCR) Not Detected (Not Detect) C. krusei (PCR) Not Detected (Not Detect) C. parapsilosis (PCR) Not Detected (Not Detect) C. tropicalis (PCR) Not Detected (Not Detect) Enterobacteriac sp PCR Not Detected (Not Detect) E. cloacae complex PCR Not Detected (Not Detect) Enterococcus sp PCR Not Detected (Not Detect) E. coli (PCR) Not Detected (Not Detect) H. influenzae (PCR) Not Detected (Not Detect) Klebsiella oxytoca PCR Not Detected (Not Detect) Klebsiella pneumoniae Not Detected (Not Detect) List. monocytogenes PCR Not Detected (Not Detect) N. meningitidis (PCR) Not Detected (Not Detect) Proteus species (PCR) Not Detected (Not Detect) Serratia marcescens PCR Not Detected (Not Detect) Staphylococcus sp PCR Not Detected (Not Detect) Staph aureus (PCR) DETECTED A (Not Detect) mecA-Methicil Res Gene DETECTED A (Not Detect) Streptococcus sp PCR Not Detected (Not Detect) Group A Strep DNA Not Detected (Not Detect) Group B Strep (PCR) Not Detected (Not Detect) Strep pneumoniae (PCR) Not Detected (Not Detect) P. aeruginosa (PCR) Not Detected (Not Detect) Sil/B-Vanco Res Genes Not Detected (Not Detect) KPC (blaKPC) Detect PCR Not Detected (Not Detect) 12/15/17 12/15/17 Range/Units 08:07 08:13 WBC (4.3-11.1) K/mcL RBC (3.82-4.97) M/mcL Hgb (11.5-15.4) g/dL Hct (35.3-44.9) % MCV (83.0-100.0) fL MCH (28.0-33.3) pg MCHC (31.6-35.5) g/dL RDW (11.5-14.5) % Plt Count (140-400) K/mcL MPV (9.4-12.4) fL Seg Neutrophils % % Lymphocytes % % Neutrophils # (1.6-8.9) K/mcL Lymphocytes # (0.6-4.6) K/mcL Platelet Estimate (Normal) PT (9.4-12.1) Seconds INR APTT (26.0-36.0) Seconds VBG pH 7.44 H (7.32-7.42) pH Units VBG pCO2 40 L (41-51) mmHg VBG pO2 120 H (25-50) mmHg VBG HCO3 27 (21-27) mEq/L Sodium (136-145) mEq/L Potassium (3.5-5.1) mEq/L Chloride (98-107) mEq/L Carbon Dioxide (23-29) mEq/L BUN (8-23) mg/dL Creatinine (0.60-1.20) mg/dL Est GFR ( Amer) (> 60) Est GFR (Non-Af Amer) (> 60) BUN/Creatinine Ratio (6-26) Glucose (70-105) mg/dL Calculated Osmolality (280-300) Lactic Acid (0.5-2.2) mmol/L Calcium (8.6-10.3) mg/dL Phosphorus (2.7-4.5) mg/dL Magnesium (1.6-2.6) mg/dL Total Bilirubin (0.3-1.0) mg/dL Direct Bilirubin (0.0-0.2) mg/dL Indirect Bilirubin (0.0-1.2) mg/dL AST (13-39) Units/L ALT (7-52) Units/L Alkaline Phosphatase (34-104) Units/L Troponin I (< 0.04) ng/mL Serum Total Protein (6.4-8.9) g/dL Albumin (3.5-5.7) g/dL Globulin (2.4-3.5) g/dL Albumin/Globulin Ratio (1.1-2.2) Urine Color (Yellow) Urine Clarity (Clear) Urine pH (5.0-8.0) pH Units Ur Specific Blanchard (1.010-1.025) Urine Protein (Neg-Trace) mg/dL Urine Glucose (UA) (Normal) mg/dL Urine Ketones (Negative) mg/dL Urine Blood (Negative) Urine Nitrite (Negative) Urine Bilirubin (Negative) Urine Urobilinogen (Normal) mg/dL Ur Leukocyte Esterase (Negative) Urine Microscopic RBC (0-3) per hpf Urine Microscopic WBC (0-3) per hpf Ur Squamous Epith Cells (None-Few) per lpf Ur Transition Epith Cell (None-Few) per hpf Ur Renal Epithelial Cell (None-Few) per hpf Urine Bacteria (None-Few) per hpf Granular Casts (None Seen) per lpf Waxy Casts (None Seen) per lpf Ur Culture Indicated? (NO) Urine Creatinine 146 mg/dL Protein/Creatinin Ratio 8.34 H (0.00-0.20) mg/mg Urine Total Protein 1218 H (1-14) mg/dL A. baumannii (PCR) (Not Detect) Kerry albicans (PCR) (Not Detect) C. glabrata (PCR) (Not Detect) C. krusei (PCR) (Not Detect) C. parapsilosis (PCR) (Not Detect) C. tropicalis (PCR) (Not Detect) Enterobacteriac sp PCR (Not Detect) E. cloacae complex PCR (Not Detect) Enterococcus sp PCR (Not Detect) E. coli (PCR) (Not Detect) H. influenzae (PCR) (Not Detect) Klebsiella oxytoca PCR (Not Detect) Klebsiella pneumoniae (Not Detect) List. monocytogenes PCR (Not Detect) N. meningitidis (PCR) (Not Detect) Proteus species (PCR) (Not Detect) Serratia marcescens PCR (Not Detect) Staphylococcus sp PCR (Not Detect) Staph aureus (PCR) (Not Detect) mecA-Methicil Res Gene (Not Detect) Streptococcus sp PCR (Not Detect) Group A Strep DNA (Not Detect) Group B Strep (PCR) (Not Detect) Strep pneumoniae (PCR) (Not Detect) P. aeruginosa (PCR) (Not Detect) Sil/B-Vanco Res Genes (Not Detect) KPC (blaKPC) Detect PCR (Not Detect) - Radiology Data Radiology results reviewed: Yes I reviewed the patient's radiology results. Chest X-Ray 12/15/17 07:31 IMPRESSION: 1. Mild pulmonary vascular congestion and edema. 2. Trace right-sided pleural effusion. D/ / Adriana Younger MD / Adriana Younger MD Interpreting Provider: Adriana Younger MD - EKG Data EKG attestation: Yes I reviewed and interpreted this EKG. EKG shows normal: sinus rhythm Rate: normal Rhythm: NSR ST segment depression in: II, aVF, v3, v4, v5, v6 T wave inversions noted in: I, v6 When compared to previous EKG there are: changes noted Interpretation: nonspecific ST-T wave changes
[2017-12-15 07:50] LABS: Hematocrit 34.4 % (35.3-44.9); Hemoglobin 11.1 g/dL (11.5-15.4); Mean Corpuscular HGB Conc 32.3 g/dL (31.6-35.5); Mean Corpuscular Hemoglobin 26.6 pg (28.0-33.3); Mean Corpuscular Volume 82.5 fL (83.0-100.0); Mean Platelet Volume 9.4 fL (9.4-12.4); Platelet Count 226 K/mcL (140-400); Red Blood Count 4.17 M/mcL (3.82-4.97); Red Cell Distribution Width 16.5 % (11.5-14.5)
[2017-12-15 07:57] LABS: INR 1.3; Prothrombin Time 14.2 Seconds (9.4-12.1)
[2017-12-15 08:00] LABS: Activated Partial Thrombo Time 33.4 Seconds (26.0-36.0)
[2017-12-15] MEDS ORDERED: Acetaminophen 325 MG TABLET PO STA (08:06)
[2017-12-15 08:12] LABS: Potassium 2.5 mEq/L (3.5-5.1)
[2017-12-15 08:13] LABS: Albumin 3.2 g/dL (3.5-5.7); Albumin/Globulin Ratio 1.1 (1.1-2.2); Bilirubin,Direct 0.1 mg/dL (0.0-0.2); Bilirubin,Indirect 0.4 mg/dL (0.0-1.2); Bilirubin,Total 0.5 mg/dL (0.3-1.0); Calcium 9.2 mg/dL (8.6-10.3); Globulin 2.8 g/dL (2.4-3.5); Magnesium 1.3 mg/dL (1.6-2.6); Phosphorous 2.4 mg/dL (2.7-4.5); Troponin I 0.08 ng/mL (< 0.04)
[2017-12-15 08:17] LABS: Lymphocytes # 0.3 K/mcL (0.6-4.6)
[2017-12-15 08:17] LABS: VBG HCO3 27 mEq/L (21-27); VBG PCO2 40 mmHg (41-51); VBG PH 7.44 pH Units (7.32-7.42); VBG PO2 120 mmHg (25-50)
[2017-12-15 08:18] LABS: Platelet Estimate Normal (Normal)
[2017-12-15 08:20] LABS: Neutrophils # 26.6 K/mcL (1.6-8.9)
[2017-12-15] MEDS ORDERED: Aspirin 325 MG TABLET PO ONE (08:21)
[2017-12-15 08:22] LABS: Bilirubin,Urine Small (Negative); Blood,Urine Negative (Negative); Clarity,Urine Turbid (Clear); Color,Urine Dark Yellow (Yellow); Glucose,Urine (UA) 250 mg/dL (Normal); Ketones,Urine Trace mg/dL (Negative); Leukocyte Esterase,Urine Moderate (Negative); Nitrite,Urine Negative (Negative); Protein,Urine >=1000 mg/dL (Neg-Trace); Specific Gravity,Urine 1.022 (1.010-1.025); Urobilinogen,Urine Normal (Normal)
[2017-12-15 08:25] LABS: Bacteria,Urine None Seen per hpf (None-Few); RBC,Urine 0-3 per hpf (0-3); Squamous Epithelial Cell,Urine Many per lpf (None-Few); WBC,Urine TNTC per hpf (0-3)
[2017-12-15 08:47] LABS: Granular Casts,Urine Moderate per lpf (None Seen)
[2017-12-15 08:48] LABS: Waxy Casts,Urine Few per lpf (None Seen)
[2017-12-15 08:53] LABS: Renal Epithelial Cells,Urine Few per hpf (None-Few); Transitional Epi Cells,Urine Few per hpf (None-Few)
[2017-12-15] MEDS ORDERED: Naloxone 0.4 MG/ML INJ IVP PRN (09:06)
--- NOTE | 2017-12-15 09:34 | Emergency Department Note ---
Disposition Clinical Impression: Sepsis, Pyuria, sterile, ST segment changes on electrocardiogram, Elevated troponin I level Disposition: Admitted As Inpatient Condition: Fair General Adult HPI - General Chief complaint: ED Fever Stated complaint: fever / lethargic Time Seen by Provider: 12/15/17 07:21 Source: EMS Mode of arrival: EMS Limitations: no limitations Nursing Notes Reviewed: Yes Vital Signs Reviewed: Yes - History of Present Illness Pain Scale: 0 - Related Data Home Medications Medication Instructions Recorded Confirmed RX: ALPRAZolam [Xanax 1 MG Tablet] 1 mg PO BID 04/15/17 12/15/17 RX: Clopidogrel [Plavix] 75 mg PO DAILY 04/15/17 12/15/17 RX: DULoxetine [Cymbalta] 30 mg PO BID 04/15/17 12/15/17 RX: Famotidine [Heartburn 20 mg PO DAILY 04/15/17 12/15/17 Prevention] RX: risperiDONE [Risperidone] 1 mg PO HS 04/15/17 12/15/17 RX: Ranolazine [Ranexa] 500 mg PO BID 07/23/17 12/15/17 RX: Rosuvastatin [Crestor] 40 mg PO QPM 07/23/17 12/15/17 RX: Budesonide/Formoterol 160/4.5 2 puff IH BIDR 09/28/17 12/15/17 [Symbicort 160/4.5] RX: Furosemide [Lasix] 40 mg PO DAILY 09/28/17 12/15/17 RX: HYDROcodone/Acet 5/325 mg 1 tab PO BID PRN 09/28/17 12/15/17 [[place] 5-325 mg] RX: Tiotropium [Spiriva] 1 puff IH DAILY 09/28/17 12/15/17 RX: Furosemide [Lasix] 40 mg PO QAM 11/07/17 12/15/17 Aspirin [Lo-Dose Aspirin EC] 81 mg PO DAILY 12/15/17 12/15/17 NIFEdipine [Nifedipine ER] 90 mg PO DAILY 12/15/17 12/15/17 RX: Insulin Regular U-500 [HumuLIN 70 unit SQ TID 12/15/17 12/15/17 R U-500] RX: Trazodone HCl 100 mg PO HS 12/15/17 12/15/17 Sevelamer [Renvela] 800 mg PO TID 12/15/17 12/15/17 Previous Rx's Medication Instructions Recorded RX: Ergocalciferol (VITAMIN D2) 50,000 unit PO QWEEK #4 capsule 10/04/17 [Drisdol (50,000 Unit)] RX: Hydralazine HCl 100 mg PO TID #90 tablet 10/04/17 RX: Carvedilol [Coreg] 25 mg PO BIDWM 30 Days #30 tablet 11/21/17 RX: cloNIDine HCl [CloNIDine HCl] 0.1 mg PO TID 30 Days #90 tablet 11/21/17 RX: metOLazone [Zaroxolyn] 5 mg PO DAILY@0730 30 Days #30 11/21/17 tablet Allergies Allergy/AdvReac Type Severity Reaction Status Date / Time morphine Allergy Hallucinati Verified 09/27/17 17:49 ng Sulfa (Sulfonamide Allergy Rash Verified 09/27/17 17:49 Antibiotics) Past Medical History - Past Medical History Medical history: Reports: arthritis, CHF, COPD, diabetes, GERD, hyperlipidemia, hypertension, RA, renal disease Surgical history: Reports: angioplasty/stent, appendectomy, , cataract Psychiatric history: Reports: anxiety, bipolar - Social History Smoking Status: Current every day smoker Smokeless Tobacco Status: No Alcohol use: Reports: none Drug use: Reports: none Physical Exam - General Limitations: no limitations General appearance: in no apparent distress, lethargic Course Vital Signs Temperature 103.2 F H 12/15/17 07:16 Pulse Rate 91 12/15/17 07:16 Respiratory Rate 22 12/15/17 07:16 Blood Pressure 147/76 12/15/17 07:16 O2 Sat by Pulse Oximetry 95 12/15/17 07:16 Temperature 98.2 F 12/15/17 10:52 Pulse Rate 76 12/15/17 10:52 Respiratory Rate 16 12/15/17 10:52 Blood Pressure 134/69 12/15/17 10:52 O2 Sat by Pulse Oximetry 96 12/15/17 10:52 Oxygen Delivery Oxygen Delivery Nasal Cannula Medical Decision Making - Lab Data Result diagrams: 12/15/17 07:27 12/15/17 14:35 Lab Results 12/15/17 12/15/17 12/15/17 Range/Units 07:27 07:27 07:27 WBC 32.1 H* (4.3-11.1) K/mcL RBC 4.17 (3.82-4.97) M/mcL Hgb 11.1 L (11.5-15.4) g/dL Hct 34.4 L (35.3-44.9) % MCV 82.5 L (83.0-100.0) fL MCH 26.6 L (28.0-33.3) pg MCHC 32.3 (31.6-35.5) g/dL RDW 16.5 H (11.5-14.5) % Plt Count 226 (140-400) K/mcL MPV 9.4 (9.4-12.4) fL Seg Neutrophils % 83.0 % Lymphocytes % 1.0 % Neutrophils # 26.6 H (1.6-8.9) K/mcL Lymphocytes # 0.3 L (0.6-4.6) K/mcL Platelet Estimate Normal (Normal) PT 14.2 H (9.4-12.1) Seconds INR 1.3 APTT 33.4 (26.0-36.0) Seconds VBG pH (7.32-7.42) pH Units VBG pCO2 (41-51) mmHg VBG pO2 (25-50) mmHg VBG HCO3 (21-27) mEq/L Sodium 131 L (136-145) mEq/L Potassium 2.5 L* (3.5-5.1) mEq/L Chloride 94 L (98-107) mEq/L Carbon Dioxide 24 (23-29) mEq/L BUN 28 H (8-23) mg/dL Creatinine 5.38 H (0.60-1.20) mg/dL Est GFR ( Amer) 10 L (> 60) Est GFR (Non-Af Amer) 8 L (> 60) BUN/Creatinine Ratio 5 L (6-26) Glucose 189 H (70-105) mg/dL Calculated Osmolality 283 (280-300) Lactic Acid (0.5-2.2) mmol/L Calcium 9.2 (8.6-10.3) mg/dL Phosphorus 2.4 L (2.7-4.5) mg/dL Magnesium 1.3 L (1.6-2.6) mg/dL Total Bilirubin 0.5 (0.3-1.0) mg/dL Direct Bilirubin 0.1 (0.0-0.2) mg/dL Indirect Bilirubin 0.4 (0.0-1.2) mg/dL AST 27 (13-39) Units/L ALT 10 (7-52) Units/L Alkaline Phosphatase 52 (34-104) Units/L Troponin I 0.08 H* (< 0.04) ng/mL Serum Total Protein 6.0 L (6.4-8.9) g/dL Albumin 3.2 L (3.5-5.7) g/dL Globulin 2.8 (2.4-3.5) g/dL Albumin/Globulin Ratio 1.1 (1.1-2.2) Urine Color (Yellow) Urine Clarity (Clear) Urine pH (5.0-8.0) pH Units Ur Specific [place] (1.010-1.025) Urine Protein (Neg-Trace) mg/dL Urine Glucose (UA) (Normal) mg/dL Urine Ketones (Negative) mg/dL Urine Blood (Negative) Urine Nitrite (Negative) Urine Bilirubin (Negative) Urine Urobilinogen (Normal) mg/dL Ur Leukocyte Esterase (Negative) Urine Microscopic RBC (0-3) per hpf Urine Microscopic WBC (0-3) per hpf Ur Squamous Epith Cells (None-Few) per lpf Ur Transition Epith Cell (None-Few) per hpf Ur Renal Epithelial Cell (None-Few) per hpf Urine Bacteria (None-Few) per hpf Granular Casts (None Seen) per lpf Waxy Casts (None Seen) per lpf Ur Culture Indicated? (NO) Urine Creatinine mg/dL Protein/Creatinin Ratio (0.00-0.20) mg/mg Urine Total Protein (1-14) mg/dL 12/15/17 12/15/17 12/15/17 Range/Units 07:27 08:07 08:07 WBC (4.3-11.1) K/mcL RBC (3.82-4.97) M/mcL Hgb (11.5-15.4) g/dL Hct (35.3-44.9) % MCV (83.0-100.0) fL MCH (28.0-33.3) pg MCHC (31.6-35.5) g/dL RDW (11.5-14.5) % Plt Count (140-400) K/mcL MPV (9.4-12.4) fL Seg Neutrophils % % Lymphocytes % % Neutrophils # (1.6-8.9) K/mcL Lymphocytes # (0.6-4.6) K/mcL Platelet Estimate (Normal) PT (9.4-12.1) Seconds INR APTT (26.0-36.0) Seconds VBG pH (7.32-7.42) pH Units VBG pCO2 (41-51) mmHg VBG pO2 (25-50) mmHg VBG HCO3 (21-27) mEq/L Sodium (136-145) mEq/L Potassium (3.5-5.1) mEq/L Chloride (98-107) mEq/L Carbon Dioxide (23-29) mEq/L BUN (8-23) mg/dL Creatinine (0.60-1.20) mg/dL Est GFR ( Amer) (> 60) Est GFR (Non-Af Amer) (> 60) BUN/Creatinine Ratio (6-26) Glucose (70-105) mg/dL Calculated Osmolality (280-300) Lactic Acid 1.0 (0.5-2.2) mmol/L Calcium (8.6-10.3) mg/dL Phosphorus (2.7-4.5) mg/dL Magnesium (1.6-2.6) mg/dL Total Bilirubin (0.3-1.0) mg/dL Direct Bilirubin (0.0-0.2) mg/dL Indirect Bilirubin (0.0-1.2) mg/dL AST (13-39) Units/L ALT (7-52) Units/L Alkaline Phosphatase (34-104) Units/L Troponin I (< 0.04) ng/mL Serum Total Protein (6.4-8.9) g/dL Albumin (3.5-5.7) g/dL Globulin (2.4-3.5) g/dL Albumin/Globulin Ratio (1.1-2.2) Urine Color Dark Yellow (Yellow) Urine Clarity Turbid A (Clear) Urine pH 5.0 (5.0-8.0) pH Units Ur Specific [place] 1.022 (1.010-1.025) Urine Protein >=1000 H (Neg-Trace) mg/dL Urine Glucose (UA) 250 H (Normal) mg/dL Urine Ketones Trace H (Negative) mg/dL Urine Blood Negative (Negative) Urine Nitrite Negative (Negative) Urine Bilirubin Small H (Negative) Urine Urobilinogen Normal (Normal) mg/dL Ur Leukocyte Esterase Moderate H (Negative) Urine Microscopic RBC 0-3 (0-3) per hpf Urine Microscopic WBC TNTC H (0-3) per hpf Ur Squamous Epith Cells Many H (None-Few) per lpf Ur Transition Epith Cell Few (None-Few) per hpf Ur Renal Epithelial Cell Few (None-Few) per hpf Urine Bacteria None Seen (None-Few) per hpf Granular Casts Moderate H (None Seen) per lpf Waxy Casts Few H (None Seen) per lpf Ur Culture Indicated? NO. A (NO) Urine Creatinine 146 mg/dL Protein/Creatinin Ratio 8.34 H (0.00-0.20) mg/mg Urine Total Protein 1218 H (1-14) mg/dL 12/15/17 Range/Units 08:13 WBC (4.3-11.1) K/mcL RBC (3.82-4.97) M/mcL Hgb (11.5-15.4) g/dL Hct (35.3-44.9) % MCV (83.0-100.0) fL MCH (28.0-33.3) pg MCHC (31.6-35.5) g/dL RDW (11.5-14.5) % Plt Count (140-400) K/mcL MPV (9.4-12.4) fL Seg Neutrophils % % Lymphocytes % % Neutrophils # (1.6-8.9) K/mcL Lymphocytes # (0.6-4.6) K/mcL Platelet Estimate (Normal) PT (9.4-12.1) Seconds INR APTT (26.0-36.0) Seconds VBG pH 7.44 H (7.32-7.42) pH Units VBG pCO2 40 L (41-51) mmHg VBG pO2 120 H (25-50) mmHg VBG HCO3 27 (21-27) mEq/L Sodium (136-145) mEq/L Potassium (3.5-5.1) mEq/L Chloride (98-107) mEq/L Carbon Dioxide (23-29) mEq/L BUN (8-23) mg/dL Creatinine (0.60-1.20) mg/dL Est GFR ( Amer) (> 60) Est GFR (Non-Af Amer) (> 60) BUN/Creatinine Ratio (6-26) Glucose (70-105) mg/dL Calculated Osmolality (280-300) Lactic Acid (0.5-2.2) mmol/L Calcium (8.6-10.3) mg/dL Phosphorus (2.7-4.5) mg/dL Magnesium (1.6-2.6) mg/dL Total Bilirubin (0.3-1.0) mg/dL Direct Bilirubin (0.0-0.2) mg/dL Indirect Bilirubin (0.0-1.2) mg/dL AST (13-39) Units/L ALT (7-52) Units/L Alkaline Phosphatase (34-104) Units/L Troponin I (< 0.04) ng/mL Serum Total Protein (6.4-8.9) g/dL Albumin (3.5-5.7) g/dL Globulin (2.4-3.5) g/dL Albumin/Globulin Ratio (1.1-2.2) Urine Color (Yellow) Urine Clarity (Clear) Urine pH (5.0-8.0) pH Units Ur Specific [place] (1.010-1.025) Urine Protein (Neg-Trace) mg/dL Urine Glucose (UA) (Normal) mg/dL Urine Ketones (Negative) mg/dL Urine Blood (Negative) Urine Nitrite (Negative) Urine Bilirubin (Negative) Urine Urobilinogen (Normal) mg/dL Ur Leukocyte Esterase (Negative) Urine Microscopic RBC (0-3) per hpf Urine Microscopic WBC (0-3) per hpf Ur Squamous Epith Cells (None-Few) per lpf Ur Transition Epith Cell (None-Few) per hpf Ur Renal Epithelial Cell (None-Few) per hpf Urine Bacteria (None-Few) per hpf Granular Casts (None Seen) per lpf Waxy Casts (None Seen) per lpf Ur Culture Indicated? (NO) Urine Creatinine mg/dL Protein/Creatinin Ratio (0.00-0.20) mg/mg Urine Total Protein (1-14) mg/dL Attestation Statement - Attestation Attestation: Medical screening examination/treatment/procedure(s) were conducted as a shared visit with non-physician practitioner(s) and myself. I personally evaluated the patient during the encounter. Patient with significant history of CHF and COPD on home CPAP with no home oxygen. Patient with recent hospital stay with pneumonia and positive blood cultures approximately one month ago. Presenting today for fever and increased oxygen demand, tachypnea, increased sleepiness. The patient is accompanied by grandson who does have limited knowledge of her medical history. The patient presents febrile but is not significant tachycardic and is not hypotensive. She is requiring 2 L of nasal cannula to keep her oxygen saturation are 98%. She does have mild tachypnea in the mid 20s. On exam she is arousable to physical stimuli. She is able to state her name and carry on a conversation. Patient does not have any significant abdominal pain. Her abdomen is soft and nontender to palpation. Given her history and presentation she likely has pneumonia. Work including cultures both peripherally and through her dialysis catheter have been ordered. Patient will be placed on broad-spectrum antibiotics. Patient will require admission. Please see MAYKEL note for futher details and disposition.
[2017-12-15] MEDS ORDERED: Vancomycin 1 EACH in 0.9 % Sodium Chloride 250 ML IVPB PRN (10:00)
--- NOTE | 2017-12-15 10:01 | Internal Med History&Physical ---
Date of Encounter: 12/15/17 Time of Encounter: 09:59 Internal Medicine - H&P: HPI Chief complaint: lethargic Admitted From: Home Plans for Post Hospital Care: Home History of present illness: Ms. Garcia is a 67 year old female with past medical history of diastolic CHF, COPD, diabetes on insulin, obstructive sleep apnea, CAD and chronic kidney disease recently started on dialysis when she was admitted for pneumonia which required intubation was brought to the ER when family found patient was not arousable this morning. History was obtained from daughter, grandson and previous chart as well as from patient. Patient however somewhat drowsy and could not provide detailed history. Patient felt somewhat sick yesterday however the day of admission when daughter went to wake her up she was difficult to arouse, hence brought to ER. Patient was noted to be febrile, tachypneic and with elevated white count in ER. Patient was suspected to have sepsis and was started on vancomycin and Levaquin in ER. Patient also had elevated troponin and received a dose of aspirin. Chest x-ray showed mild pulmonary vascular congestion and edema. Blood cultures were drawn from permacath and peripheral IV. Patient's blood pressure was stable and lactic acid was normal at 1. Patient was noted to have hypokalemia and hypomagnesemia. Admission was requested for sepsis and electrolyte disorder On interview patient is arousable however goes to sleep quickly. Alert and oriented and was able to provide some history. Does not know why she is in the hospital. Complaints of pain in her buttocks region. Denies any abdominal pain chest pain or difficulty breathing. Has on and off constipation and diarrhea. Per family report she has dialysis she has diarrhea. Unknown time off last BM. Per grandson she did appear to be somewhat sick yesterday. She did not miss any dialysis sessions. According to family her weight has been more or less stable if not mildly decreasing. However family also notes that she appears somewhat swollen today. Patient does make urine and denies any urinary complaints. Per family outpatient presales consultant was in the process of doing 24-hour urine study. Patient currently lives at home and is not completely bedbound and mostly by herself's as of yesterday. She uses CPAP at night and whenever she sleeps. Patient was able to provide her CODE STATUS with comprehension to be full code at least for short-term. Past Med Surg Social Fam HX - Past Medical History Medical history: arthritis, CHF (Diastolic), COPD, coronary artery disease, diabetes, dialysis, GERD, hyperlipidemia, hypertension, RA, renal disease Additional medical history: HUSAM, Morbid obesity Psychiatric history: anxiety, bipolar - Past Surgical History Surgical History: angioplasty/stent, appendectomy, , cataract Additional surgical history: 1 cardiac stent - Social History Smoking Status: Current every day smoker Smokeless Tobacco Status: No Alcohol use: none Drug use: none - Family History Mother Living Status: Still Living Hx Family Cardiac Disorders: Yes Hx Family Respiratory Disorders: Yes (copd) Hx Family Cancer: Yes Hx Family Neurologic Disorders: Yes (alzheimer) Father Living Status: Hx Family Cardiac Disorders: Yes Hx Family Neurologic Disorders: Yes (Brain aneurysm) Brother Hx Family Endocrine Disorder: Yes (DM) Sister Living Status: Hx Family Endocrine Disorder: Yes (DM) Internal Medicine - H&P: Meds ALPRAZolam [Xanax 1 MG Tablet] 1 mg PO BID 04/15/17 [History] Clopidogrel [Plavix] 75 mg PO DAILY 04/15/17 [History] DULoxetine [Cymbalta] 30 mg PO BID 04/15/17 [History] Famotidine [Heartburn Prevention] 20 mg PO BID 04/15/17 [History] Fenofibrate Nanocrystallized [Triglide] 160 mg PO DAILY 04/15/17 [History] risperiDONE [Risperidone] 1 mg PO DAILY 04/15/17 [History] Ranolazine [Ranexa] 500 mg PO BID 07/23/17 [History] Rosuvastatin [Crestor] 40 mg PO HS 07/23/17 [History] Albuterol Sulfate [Ventolin Hfa] 2 puff IH Q6H PRN 09/28/17 [History] Budesonide/Formoterol 160/4.5 [Symbicort 160/4.5] 2 puff IH BIDR 09/28/17 [History] Furosemide [Lasix] 40 mg PO QPM 09/28/17 [History] HYDROcodone/Acet 5/325 mg [[place] 5-325 mg] 1 tab PO BID PRN 09/28/17 [History] Tiotropium [Spiriva] 1 puff IH DAILY 09/28/17 [History] Ergocalciferol (VITAMIN D2) [Drisdol (50,000 Unit)] 50,000 unit PO QWEEK #4 ca psule 10/04/17 [Rx] Hydralazine HCl 100 mg PO TID #90 tablet 10/04/17 [Rx] Furosemide [Lasix] 60 mg PO QAM 11/07/17 [History] Carvedilol [Coreg] 25 mg PO BIDWM 30 Days #30 tablet 11/21/17 [Rx] Insulin LISPRO [Humalog] 4 unit SQ TID #0 11/21/17 [Rx] cloNIDine HCl [CloNIDine HCl] 0.1 mg PO TID 30 Days #90 tablet 11/21/17 [Rx] metOLazone [Zaroxolyn] 5 mg PO DAILY@0730 30 Days #30 tablet 11/21/17 [Rx] NIFEdipine [Nifedipine ER] 90 mg PO DAILY 12/15/17 [History] Trazodone HCl 100 mg PO 12/15/17 [History] Allergy/AdvReac Type Severity Reaction Status Date / Time morphine Allergy Hallucinati Verified 09/27/17 17:49 ng Sulfa (Sulfonamide Allergy Rash Verified 09/27/17 17:49 Antibiotics) All Systems PM: A 10-system review of systems was performed and is negative for pertinent findings except as documented above in the HPI. - Constitutional Vitals: Temp Pulse Resp BP Pulse Ox 103.2 F H 82 20 132/89 100 12/15/17 07:16 12/15/17 08:16 12/15/17 08:16 12/15/17 08:16 12/15/17 08:16 General appearance: Present: A&O X 2, no acute distress Exam: Constitutional: Vitals as noted. Conversant but easy to fall asleep. No Apparent Distress. Morbid obesity Eyes : Sclera white, conjunctiva clear, no lid lag, PEARLA. ENT : Grossly normal hearing. Oropharyngeal exam unremarkable. Dry mucus membranes. No JVD. no cervical lymphadenopathy. no thyromegaly or mass. Respiratory: Clear to auscultation bilaterally. No accessory muscle use, rales, rhonchi or wheezes Cardiovascular : RRR, +S1, +S2. no murmur, gallop, rubs. No chest wall tender ness, pulses palpable and symmetrical in UE/LE. 2+ edema, no cyanosis. no calf tenderness. Rt leg more swollen compared to Lt. GI/Abdominal : Soft, Obese, Non-tender, Non-distended, normal bowel sounds, no peritoneal signs. no orgenomegaly, hernia or mass appreciated. Musculoskeletal: no deformity noted. Neurological: AO X2, CN II-XII grossly intact, motor and sensory exam could not be performed reliably but appears to be grossly normal. Skin: DTI noted on sacral region with mild excoriation. No open wound present. No skin rash noted. Pych: Somewhat drowsy. unreliable evaluation. AOx2. Internal Med - H&P Results - Labs CBC & Chem 7: 12/15/17 07:27 12/15/17 07:27 Labs: Short CBC 12/15/17 Range/Units 07:27 WBC 32.1 H* (4.3-11.1) K/mcL Hgb 11.1 L (11.5-15.4) g/dL Hct 34.4 L (35.3-44.9) % Plt Count 226 (140-400) K/mcL Neutrophils # 26.6 H (1.6-8.9) K/mcL BMP 12/15/17 07:27 Sodium 131 L Potassium 2.5 L* Chloride 94 L Carbon Dioxide 24 BUN 28 H Creatinine 5.38 H Glucose 189 H Calcium 9.2 Cardiac Enzymes 12/15/17 Range/Units 07:27 Troponin I 0.08 H* (< 0.04) ng/mL Liver Function 12/15/17 Range/Units 07:27 Total Bilirubin 0.5 (0.3-1.0) mg/dL Direct Bilirubin 0.1 (0.0-0.2) mg/dL AST 27 (13-39) Units/L ALT 10 (7-52) Units/L Alkaline Phosphatase 52 (34-104) Units/L Albumin 3.2 L (3.5-5.7) g/dL Urine 12/15/17 Range/Units 08:07 Urine Color Dark Yellow (Yellow) Urine Clarity Turbid A (Clear) Urine pH 5.0 (5.0-8.0) pH Units Ur Specific [place] 1.022 (1.010-1.025) Urine Protein >=1000 H (Neg-Trace) mg/dL Urine Glucose (UA) 250 H (Normal) mg/dL - ABG Interpretation ABG results: 12/15/17 08:13 VBG pH 7.44 H VBG pCO2 40 L VBG pO2 120 H VBG HCO3 27 - Impressions ITS Impressions Chest X-Ray 12/15/17 07:31 IMPRESSION: 1. Mild pulmonary vascular congestion and edema. 2. Trace right-sided pleural effusion. D/ / Adriana Younger MD / Adriana Younger MD Interpreting Provider: Adriana Younger MD - Assessment and plan (1) Sepsis Current Visit: Yes Status: Acute Assessment and plan: - Patient's repeat sirs criteria of leukocytosis, fever, tachypnea - Unclear source - Recently discharged from hospital within one month. Had a pneumonia as well as positive blood culture with E faecalis shaw sensitive - Chest x-ray today with mild pulmonary vascular congestion and edema and trace right sided effusion. We will obtain CT scan to evaluate for early pneumonia. - Obtain MRSA screen, urine strep pneumo and legionella antigen testing, respiratory panel. - UA poor sample however without any bacteria. Patient asymptomatic. We will repeat UA. Unlikely the source. - Patient also has a permacath placed on her last admission within a month. Could not rule out as a source. Site does not seem to be inflamed. - Follow up blood cultures from permacath and blood peripheral. - Continue renally dose of vancomycin and Levaquin for now. Qualifiers: Qualified Code(s): A41.9 - Sepsis, unspecified organism (2) Proteinuria Current Visit: Yes Status: Acute Assessment and plan: - Patient currently been evaluated by nephrology as outpatient - Previous h/o proteinuria with negative workup for SOPHIA, ANCA and complements. Thought to be related to Diabetes - We will obtain spot urine protein creatinine ratio. - Patient is currently on dialysis via permacath. - Nephrology recommendation appreciated. Qualifiers: Qualified Code(s): R80.9 - Proteinuria, unspecified (3) Hypomagnesemia Current Visit: Yes Status: Acute Assessment and plan: - Patient on Lasix as well as metolazone at home. - Also with hypokalemia. - Possibly from diuretic usage. - Received 1 g magnesium sulfate in ER. (4) Diabetes mellitus Current Visit: No Status: Chronic Assessment and plan: - Insulin sliding scales and Accu-Cheks Qualifiers: Diabetes mellitus type: type 2 Diabetes mellitus oysterman insulin use: with oysterman use Diabetes mellitus complication status: with kidney complications Diabetes mellitus complication detail: with chronic kidney disease Chronic kidney disease stage: stage 4 (severe) Qualified Code(s): E11.22 - Type 2 diabetes mellitus with diabetic chronic kidney disease; N18.4 - Chronic kidney disease, stage 4 (severe); Z79.4 - intermediate frame tender (current) use of insulin (5) Morbid obesity Current Visit: No Status: Chronic (6) HUSAM (obstructive sleep apnea) Current Visit: No Status: Chronic Assessment and plan: - Continue CPAP at night and when sleeping (7) Hypokalemia Current Visit: No Status: Resolved Assessment and plan: - Potassium of 2.5 along with hypomagnesemia. - Likely from diuretic use. - Received 10 mEq in ER. We will give another 20. - Follow-up BMP in 4 hours. - Hold diuretics for now (8) Elevated troponin I level Current Visit: No Status: Acute Assessment and plan: - Patient without any chest pain - Troponin of 0.08. - Trend troponin in 4 hours. - Possibly related to chronic kidney disease. (9) Swelling of lower extremity Current Visit: Yes Status: Acute Assessment and plan: - Right lower extremity more swollen than left. - No warmth, erythema or tenderness noted - Chronic dermatitis changes noted - Patient more or less sedentary however also ambulatory - Obtain lower extremity ultrasound to rule out DVT (10) CAD (coronary artery disease) Status: Acute Assessment and plan: - c/w home coreg, aspirin, plavix ,statin and ranolazine - Denies chest pain. Elevated troponin likely from sepsis and CKD. Qualifiers: Associated angina: without angina Qualified Code(s): I25.10 - Athe rosclerotic heart disease of [place] coronary artery without angina pectoris (11) HTN (hypertension) Current Visit: No Status: Acute Assessment and plan: - Currently stable - Will resume only coreg and clonidine to prevent rebound HTN, given sepsis. - Monitor closely - Hold Lasix, metolazone - Will resume hydralazine if BP not controlled. Qualifiers: Hypertension type: essential hypertension Qualified Code(s): I10 - Essential (primary) hypertension (12) COPD (chronic obstructive pulmonary disease) Current Visit: Yes Status: Acute Assessment and plan: - Continue home Symbicort, spiriva and as needed albuterol Qualifiers: COPD type: unspecified COPD Qualified Code(s): J44.9 - Chronic obstructive pulmonary disease, unspecified - Time Spent With Patient Total time spent is greater than 50% in coordination of care (as documented) at patient's floor/unit and/or counseling patient:
[2017-12-15 10:49] LABS: Hepatitis B Surface Antigen Nonreactive (Nonreactive)
[2017-12-15] MEDS: Famotidine 20 MG TABLET PO SCH (11:42)
[2017-12-15] MEDS: Budesonide/Formoterol 160/4.5 1 PUFF INH IH SCH ×2 (11:51→19:21)
[2017-12-15 12:05] LABS: Protein/Creatinine Ratio,Urine 8.34 mg/mg (0.00-0.20)
[2017-12-15] MEDS: Insulin LISPRO 300 UNITS/3 ML VIAL SQ SCH ×2 (12:19→16:35)
--- NOTE | 2017-12-15 12:20 | Nephrology Consult Note ---
Addendum entered and electronically signed by Jacinto Qiu MD 12/15/17 17:55: I examined this patient and discussed the medical decision-making with LUIS Wells. I agree with the documented findings, disposition and treatment plan as described except to the extent set forth below. Plan for dialysis on if needed. Original Note: Date of Encounter: 12/15/17 Time of Encounter: 12:18 Assessment and Plan (1) TAMEKA (acute kidney injury) Current Visit: No Status: Acute Current regimen is TTS at [facility]. Last treatment was Thursday without complication. Will plan for HD tomorrow. Advised daughter to bring 24 hour urine, to evaluate renal recovery. Avoid nephrotoxins and renal dose. (2) Hypokalemia Current Visit: Yes Status: Acute K is 2.5, recommend replacement. (3) Acute and chronic respiratory failure with hypercapnia Current Visit: No Status: Acute Per primary. History of Present Illness - Reason for Consult Consult date: 12/15/17 Acute Kidney Injury Requesting physician: Zhou Stringer - Chief Complaint somnolence - History of Present Illness Ms. Garcia is a 67 year old female who was brought to ED by concerned daughter. She went to go in and wake her up for HD today, and she was not able to wake her up. PM: diastolic CHF, COPD, diabetes on insulin, obstructive sleep apnea, CAD. She was recently in the hospital for Pneumonia when she was started on HD. She was discharged on HD, and has been going to treatment TTS. A 24 hour urine was ordered and collected this am, however since patient had to come to hospital, the specimen is still at home. I did encourage the daughter to get the specimen, to evaluate her renal recovery. She lives at home with her daughter. She is on home oxygen and has a cpap for HS. Denies ETOH or illicit drug use, however she is still an every day smoker. Past Med Surg Social Fam HX - Past Medical History Medical history: arthritis, CHF, COPD, coronary artery disease, diabetes, dialysis, GERD, hyperlipidemia, hypertension, RA, renal disease Additional medical history: HUSAM, Morbid obesity Psychiatric history: anxiety, bipolar - Past Surgical History Surgical History: angioplasty/stent, appendectomy, , cataract Additional surgical history: 1 cardiac stent - Social History Smoking Status: Current every day smoker Smokeless Tobacco Status: No Alcohol use: none Drug use: none - Family History Mother Living Status: Still Living Hx Family Cardiac Disorders: Yes Hx Family Respiratory Disorders: Yes (copd) Hx Family Cancer: Yes Hx Family Neurologic Disorders: Yes (alzheimer) Father Living Status: Hx Family Cardiac Disorders: Yes Hx Family Neurologic Disorders: Yes (Brain aneurysm) Brother Hx Family Endocrine Disorder: Yes (DM) Sister Living Status: Hx Family Endocrine Disorder: Yes (DM) Medications and Allergies ALPRAZolam [Xanax 1 MG Tablet] 1 mg PO BID 04/15/17 [History] Clopidogrel [Plavix] 75 mg PO DAILY 04/15/17 [History] DULoxetine [Cymbalta] 30 mg PO BID 04/15/17 [History] Famotidine [Heartburn Prevention] 20 mg PO DAILY 04/15/17 [History] risperiDONE [Risperidone] 1 mg PO HS 04/15/17 [History] Ranolazine [Ranexa] 500 mg PO BID 07/23/17 [History] Rosuvastatin [Crestor] 40 mg PO QPM 07/23/17 [History] Budesonide/Formoterol 160/4.5 [Symbicort 160/4.5] 2 puff IH BIDR 09/28/17 [History] Furosemide [Lasix] 40 mg PO DAILY 09/28/17 [History] HYDROcodone/Acet 5/325 mg [Burnham 5-325 mg] 1 tab PO BID PRN 09/28/17 [History] Tiotropium [Spiriva] 1 puff IH DAILY 09/28/17 [History] Ergocalciferol (VITAMIN D2) [Drisdol (50,000 Unit)] 50,000 unit PO QWEEK #4 capsule 10/04/17 [Rx] Hydralazine HCl 100 mg PO TID #90 tablet 10/04/17 [Rx] Furosemide [Lasix] 40 mg PO QAM 11/07/17 [History] Carvedilol [Coreg] 25 mg PO BIDWM 30 Days #30 tablet 11/21/17 [Rx] cloNIDine HCl [CloNIDine HCl] 0.1 mg PO TID 30 Days #90 tablet 11/21/17 [Rx] metOLazone [Zaroxolyn] 5 mg PO DAILY@0730 30 Days #30 tablet 11/21/17 [Rx] Aspirin [Lo-Dose Aspirin EC] 81 mg PO DAILY 12/15/17 [History] Insulin Regular U-500 [HumuLIN R U-500] 70 unit SQ TID 12/15/17 [History] NIFEdipine [Nifedipine ER] 90 mg PO DAILY 12/15/17 [History] Sevelamer [Renvela] 800 mg PO TID 12/15/17 [History] Trazodone HCl 100 mg PO HS 12/15/17 [History] Allergy/AdvReac Type Severity Reaction Status Date / Time morphine Allergy Hallucinati Verified 09/27/17 17:49 ng Sulfa (Sulfonamide Allergy Rash Verified 09/27/17 17:49 Antibiotics) Review of Systems All Systems review (narrative): The remainder of the systems are negative. Constitutional: fatigue, lethargy, no chills, no fever(s) Cardiovascular: edema, no chest pain, no dyspnea, no orthopnea, no palpitations Respiratory: no hemoptysis Gastrointestinal: no abdominal pain, no change in bowel habits, no diarrhea, no nausea, no vomiting Genitourinary Female: no hematuria, no urinary frequency, no urinary hesitancy Exam - Vital Signs Vital signs: Initial Vital Signs Temp Pulse Resp BP Pulse Ox 103.2 F H 91 22 147/76 95 12/15/17 07:16 12/15/17 07:16 12/15/17 07:16 12/15/17 07:16 12/15/17 07:16 Vital Signs - Last 8 Hours Temp Pulse Resp BP Pulse Ox 12/15/17 10:52 98.2 F 76 16 134/69 96 12/15/17 10:10 99.5 F 97 132/44 12/15/17 08:16 82 20 132/89 100 12/15/17 08:05 29 99 12/15/17 07:29 95 12/15/17 07:16 103.2 F H 91 22 147/76 95 Intake and Output 12/14/17 12/15/17 12/15/17 23:59 07:59 15:59 Intake Total 650 / 650 Balance 650 / 650 Intake: IV Fluids 650 / 650 0.9 % Sodium Chloride 250 ML @ 250 / 250 937.5 mls/hr IVC .Q16M ONE Rx#: [id number] Zosyn 3.375 GM In Water for inj 20 / 20 . (sterile) 20 ML @ 400 mls/hr IVP ONCE ONE Rx#:[id number] Levaquin Premix 750mg/150 mL 150 / 150 750 mg In 150 ml @ 100 mls/hr IVPB ONCE ONE Rx#:[id number] Vancocin 1,000 MG In 0.9 % 250 / 250 Sodium Chloride 250 ML @ 167 mls/hr IVPB ONCE ONE Rx#: [id number] Other: Weight 121.109 kg 119.2 kg Blood Glucose* 183 Patient Weight 12/15/17 23:59 Weight 119.2 kg - General Appearance General appearance: well-developed, well-nourished, obese EENT: ATNC, hearing intact, vision intact Neck: supple Respiratory: clear, wheezing Cardiology: edema (+1 pitting edema noted, appears chronic.), normal S1, normal S2 - Dialysis Access Dialysis Vascular Access: Venous Catheter (Tunneled Line, DRSG C/D/I) Gastrointestinal: normoactive bowel sounds, no tenderness, no guarding Integumentary: no rash, warm and dry Neurologic: alert and oriented x3 Psychiatric: mood/affect appropriate, cooperative Results - Lab Results 12/15/17 07:27 12/15/17 07:27 Most recent lab results Calcium 9.2 mg/dL (8.6-10.3) 12/15/17 07:27 Phosphorus 2.4 mg/dL (2.7-4.5) L 12/15/17 07:27 Magnesium 1.3 mg/dL (1.6-2.6) L 12/15/17 07:27 Urine Creatinine 146 mg/dL 12/15/17 08:07 Urine Total Protein 1218 mg/dL (1-14) H 12/15/17 08:07 Consult Discharge Plan - Plan Referrals: Jay Valenzuela DO [Primary Care Provider] -
[2017-12-15 13:58] LABS: Adenovirus Not Detected (Not Detect); Bordetella Pertussis Not Detected (Not Detect); Chlamydophila pneumoniae Not Detected (Not Detect); Coronavirus 229E Not Detected (Not Detect); Coronavirus HKU1 Not Detected (Not Detect); Coronavirus NL63 Not Detected (Not Detect); Coronavirus OC43 Not Detected (Not Detect); Human Metapneumovirus Not Detected (Not Detect); Human Rhinovirus/Enterovirus Not Detected (Not Detect); Influenza A Subtype 2009 H1 Not Detected (Not Detect); Influenza A Untypeable Not Detected (Not Detect); Influenza B Not Detected (Not Detect); Mycoplasma pneumoniae Not Detected (Not Detect); Parainfluenza Virus 1 Not Detected (Not Detect); Parainfluenza Virus 2 Not Detected (Not Detect); Parainfluenza Virus 3 Not Detected (Not Detect); Parainfluenza Virus 4 Not Detected (Not Detect); Respiratory Syncytial Virus Not Detected (Not Detect)
[2017-12-15 15:12] LABS: Calcium 8.4 mg/dL (8.6-10.3); Potassium 3.2 mEq/L (3.5-5.1); Troponin I 0.1 ng/mL (< 0.04)
[2017-12-15] MEDS: cloNIDine HCl 0.1 MG TABLET PO SCH ×2 (16:43→22:31)
[2017-12-15] MEDS: *HR* Heparin 5,000 UNIT/ML VIAL SQ SCH (16:43)
[2017-12-15] MEDS ORDERED: Acetaminophen 325 MG TABLET PO ONE ×2 (17:44→21:55)
[2017-12-15] MEDS: Ranolazine 500 MG TAB.ER.12H PO SCH (22:31)
[2017-12-15 23:28] LABS: Enterococcus by PCR Not Detected (Not Detect); Staphylococcus aureus by PCR DETECTED (Not Detect); Staphylococcus by PCR Not Detected (Not Detect); blaKPC Carbapenem-Resist Gene Not Detected (Not Detect); mecA Methicillin-Resist Gene DETECTED (Not Detect); vanA/B Vancomycin-Resist Genes Not Detected (Not Detect)
[2017-12-15 23:29] LABS: Acinetobacter baumannii by PCR Not Detected (Not Detect); Candida albicans by PCR Not Detected (Not Detect); Candida glabrata by PCR Not Detected (Not Detect); Candida krusei by PCR Not Detected (Not Detect); Candida parapsilosis by PCR Not Detected (Not Detect); Candida tropicalis by PCR Not Detected (Not Detect); Enterobacter cloacae Cmplx PCR Not Detected (Not Detect); Enterobacteriaceae by PCR Not Detected (Not Detect); Escherichia coli by PCR Not Detected (Not Detect); Klebsiella oxytoca by PCR Not Detected (Not Detect); Klebsiella pneumoniae by PCR Not Detected (Not Detect); Proteus by PCR Not Detected (Not Detect); Pseudomonas aeruginosa by PCR Not Detected (Not Detect); Serratia marcescens by PCR Not Detected (Not Detect); Streptococcus agalactiae(B)PCR Not Detected (Not Detect); Streptococcus by PCR Not Detected (Not Detect); Streptococcus pneumoniae PCR Not Detected (Not Detect); Streptococcus pyogenes (A) PCR Not Detected (Not Detect)
--- NOTE | 2017-12-16 00:04 | Event Note ---
Date of Encounter: 12/15/17 Time of Encounter: 11:38 Notified by nurse of blood cultures positive for Staph Aureus and mecA Methicil Res Gene. Discussed plan with pharmacist, Zyvox added to regimen due to poor coverage with Levaquin. Possible interaction with Zyvox and Cymbalta for serotonin syndrome, discussed with pharmacist who advises very low occurrence rate, advised nursing staff to monitor for signs of serotonin syndrome.
[2017-12-16] MEDS: *HR* Heparin 5,000 UNIT/ML VIAL SQ SCH ×3 (00:30→18:23)
[2017-12-16 02:02] LABS: Hematocrit 29.9 % (35.3-44.9); Hemoglobin 9.7 g/dL (11.5-15.4); Mean Corpuscular HGB Conc 32.4 g/dL (31.6-35.5); Mean Corpuscular Volume 83.3 fL (83.0-100.0); Platelet Count 165 K/mcL (140-400); Red Blood Count 3.59 M/mcL (3.82-4.97); Red Cell Distribution Width 16.5 % (11.5-14.5)
[2017-12-16 02:14] LABS: Calcium 8.2 mg/dL (8.6-10.3); Potassium 3.3 mEq/L (3.5-5.1)
[2017-12-16] MEDS ORDERED: D5% in Water 1,000 ML IVC PRN (07:22)
[2017-12-16] MEDS ORDERED: *HR* Dextrose 50 % in Water (Syg) 50 ML SYRINGE IVP PRN (07:22)
[2017-12-16] MEDS ORDERED: Dextrose Gel 15 GM/37.5 ML TUBE PO PRN ×2 (07:22)
[2017-12-16] MEDS ORDERED: 0.9 % Sodium Chloride 250 ML IVC PRN (09:27)
[2017-12-16] MEDS ORDERED: *HR* Heparin 10,000 UNIT/10 ML VIAL IV PRN (09:27)
[2017-12-16] MEDS ORDERED: 0.9 % Sodium Chloride 1,000 ML PRIME SCH (09:30)
--- NOTE | 2017-12-16 10:13 | Nephrology Progress Note ---
Addendum entered and electronically signed by Jacinto Qiu MD 12/16/17 22:27: I examined this patient and discussed the medical decision-making with LUIS Wells. I agree with the documented findings, disposition and treatment plan as described except to the extent set forth below. Patient seen on HD. Will perform dialysis as well. Original Note: Date of Encounter: 12/16/17 Time of Encounter: 10:11 - Assessment and Plan (1) TAMEKA (acute kidney injury) Current Visit: No Status: Acute Current regimen is TTS at [facility]. Will plan for HD today. Advised daughter to bring 24 hour urine, to evaluate renal recovery. Avoid nephrotoxins and renal dose. (2) Hypokalemia Current Visit: Yes Status: Acute K is 3.3, recommend replacement. (3) Acute and chronic respiratory failure with hypercapnia Current Visit: No Status: Acute Per primary. (4) Elevated troponin Current Visit: Yes Status: Acute Trop is 0.08, per primary. Subjective Principal diagnosis: fever/lethargic Interval history: Pt seen an examined, doing well. Denies CP is currently on Bipap. Objective - Vital Signs Vital signs: Vital Signs Temp Pulse Resp BP Pulse Ox 12/16/17 07:00 99.6 F 76 19 157/74 97 12/16/17 03:23 100.4 F H 67 20 147/69 98 12/15/17 23:19 101.0 F H 70 20 139/54 99 12/15/17 22:11 99.1 F 75 20 157/66 12/15/17 19:39 102.1 F H 73 18 90/54 99 12/15/17 19:21 21 95 12/15/17 19:00 100.3 F H 12/15/17 17:37 103.0 F H 81 18 132/68 96 12/15/17 17:06 99.9 F H 85 16 155/70 97 12/15/17 10:52 98.2 F 76 16 134/69 96 Intake and Output 12/15/17 12/16/17 12/16/17 23:59 07:59 15:59 Output Total 300 / 300 300 / 300 Balance -300 / -300 -300 / -300 Output: Catheter 300 / 300 300 / 300 Other: Meal NPO Weight 119.7 kg Blood Glucose* 144 125 - General Appearance General appearance: Present: well-developed, well-nourished EENT: Present: ATNC, hearing intact, vision intact Neck: Present: supple Respiratory: Present: clear Cardiology: Present: edema (Trace bilat lower extremity edema.), normal S1, normal S2 Dialysis Vascular Access: Venous Catheter (Tunneled Line, DRSG C/D/I) Gastrointestinal: Present: normoactive bowel sounds, no tenderness, no guarding Integumentary: Present: no rash, warm and dry Neurologic: Present: alert and oriented x3 Psychiatric: Present: mood/affect appropriate, cooperative - Lab 12/16/17 01:39 12/16/17 01:39 Most recent lab results Calcium 8.2 mg/dL (8.6-10.3) L 12/16/17 01:39 Phosphorus 2.4 mg/dL (2.7-4.5) L 12/15/17 07:27 Magnesium 1.3 mg/dL (1.6-2.6) L 12/15/17 07:27 Urine Creatinine 146 mg/dL 12/15/17 08:07 Urine Total Protein 1218 mg/dL (1-14) H 12/15/17 08:07 Consult Discharge Plan - Plan Referrals: Jay Valenzuela DO [Primary Care Provider] -
[2017-12-16] MEDS: Budesonide/Formoterol 160/4.5 1 PUFF INH IH SCH ×2 (10:37→20:32)
[2017-12-16] MEDS: Tiotropium 18 MCG inhalation IH SCH (10:38)
[2017-12-16] MEDS: Ranolazine 500 MG TAB.ER.12H PO SCH ×2 (10:48→23:32)
[2017-12-16] MEDS: cloNIDine HCl 0.1 MG TABLET PO SCH ×3 (10:48→23:32)
[2017-12-16] MEDS: risperiDONE 1 MG TABLET PO SCH (10:48)
[2017-12-16] MEDS: Famotidine 20 MG TABLET PO SCH (10:48)
--- NOTE | 2017-12-16 11:10 | Internal Med Progress Note ---
Date of Encounter: 12/16/17 Time of Encounter: 11:07 - Time Spent With Patient (1) Sepsis Current Visit: Yes Status: Acute Assessment and plan: Improved status with less leukocytosis. CT chest and x-ray did not show pneumonia. UA shows pyuria which is unclear if it is a UTI versus concentrated urine from end-stage renal disease. Urine culture has been ordered. The sepsis is possibly from MRSA infection from the dialysis catheter. We will obtain infectious disease consult for management. The patient was started on Levaquin and Zyvox which have been DC'd. The patient is currently on vancomycin as a sole agent. Qualifiers: Qualified Code(s): A41.9 - Sepsis, unspecified organism (2) Proteinuria Current Visit: Yes Status: Acute Assessment and plan: Nephrology is following patient for this. Qualifiers: Qualified Code(s): R80.9 - Proteinuria, unspecified (3) Hypomagnesemia Current Visit: Yes Status: Acute Assessment and plan: - Patient on Lasix as well as metolazone at home. - Also with hypokalemia. - Possibly from diuretic usage. - Received 1 g magnesium sulfate in ER. Will repeat a magnesium level. 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 use: wi th usp use Diabetes mellitus complication status: with kidney compl ications Diabetes mellitus complication detail: with chronic kidney disease Chronic kidney disease stage: stage 4 (severe) Qualified Code(s): E11.22 - Type 2 diabetes mellitus with diabetic chronic kidney disease; N18.4 - Chronic kidney disease, stage 4 (severe); Z79.4 - group home (current) use of insulin (5) Morbid obesity Current Visit: No Status: Chronic (6) HUSAM (obstructive sleep apnea) Current Visit: No Status: Chronic Assessment and plan: - Continue CPAP at night and when sleeping (7) Hypokalemia Current Visit: No Status: Resolved Assessment and plan: - Potassium of 3.3 along with hypomagnesemia. Replace K. Will replace magnesium if needed. Nephrology following. (8) Elevated troponin I level Current Visit: No Status: Acute Assessment and plan: - Patient without any chest pain Troponin trended up to 0.11. Cardiology has been consulted. This is due to previous history of CAD. (9) Swelling of lower extremity Current Visit: Yes Status: Acute Assessment and plan: DVT scans are negative. (10) CAD (coronary artery disease) Status: Acute Assessment and plan: - c/w home coreg, aspirin, plavix ,statin and ranolazine - Denies chest pain. Cardiology consulted due to slight uptake in troponin. Qualifiers: Associated angina: without angina Qualified Code(s): I25.10 - Atherosclerotic heart disease of [place] coronary artery without angina pectoris (11) HTN (hypertension) Current Visit: No Status: Acute Assessment and plan: - Currently stable - Continue current meds. - Monitor closely Qualifiers: Hypertension type: essential hypertension Qualified Code(s): I10 - Essential (primary) hypertension (12) COPD (chronic obstructive pulmonary disease) Current Visit: Yes Status: Acute Assessment and plan: - Continue home Symbicort, spiriva and as needed albuterol Qualifiers: COPD type: unspecified COPD Qualified Code(s): J44.9 - Chronic obstructive pulmonary disease, unspecified - Time Spent With Patient Total time spent is greater than 50% in coordination of care (as documented) at patient's floor/unit and/or counseling patient: 25 - 35 minutes - Subjective Interval history: Patient seen and examined today in the presence of the nurse. The patient is feeling better. She does realize that she was confused yesterday when she came in but does not remember much. Today she is wanting to eat. I discussed with her her lab results and she understood. She had a positive blood culture this morning for the MRSA gene. The patient is on hemodialysis 3 times a week and has a 3-month-old dialysis catheter. The patient's chest x-ray and CT were negative for pneumonia. The UA had too numerous to count WBCs. This could be UTI versus concentrated urine in renal failure patient. Urine culture is pending - Constitutional Vitals: Temp Pulse Resp BP Pulse Ox 98.7 F 75 18 184/62 96 12/16/17 10:57 12/16/17 10:57 12/16/17 10:57 12/16/17 10:57 12/16/17 10:57 General appearance: Present: A&O X 2, no acute distress Exam: Constitutional: Vitals as noted. Conversant and alert. No Apparent Distress. Morbid obesity. Pleasant demeanor. Eyes : Sclera white, conjunctiva clear, no lid lag, PEARLA. ENT : Grossly normal hearing. no thyromegaly or mass. Respiratory: Clear to auscultation bilaterally. No accessory muscle use, rales, rhonchi or wheezes Cardiovascular : RRR, +S1, +S2. no murmur, gallop, rubs. No chest wall tenderness, pulses palpable and symmetrical in UE/LE. 2+ edema, no cyanosis. no calf tenderness. Rt leg more swollen compared to Lt. GI/Abdominal : Soft, Obese, Non-tender, Non-distended, normal bowel sounds, no peritoneal signs. no orgenomegaly, hernia or mass appreciated. Musculoskeletal: no deformity noted. Neurological: AO X2, CN II-XII grossly intact, motor and sensory exam could not be performed reliably but appears to be grossly normal. Skin: DTI noted on sacral region with mild excoriation. No open wound present. No skin rash noted. The abdominal pannus has no rash underneath it. Pych Normal mood and affect . AOx2. Internal Medicine: Result - Labs CBC & Chem 7: 12/16/17 01:39 12/16/17 01:39 Labs: Short CBC 12/16/17 Range/Units 01:39 WBC 15.9 H D (4.3-11.1) K/mcL Hgb 9.7 L (11.5-15.4) g/dL Hct 29.9 L (35.3-44.9) % Plt Count 165 (140-400) K/mcL BMP 12/15/17 12/16/17 14:35 01:39 Sodium 131 L 132 L Potassium 3.2 L D 3.3 L Chloride 96 L 97 L Carbon Dioxide 25 25 BUN 32 H 38 H Creatinine 5.76 H 6.00 H Glucose 165 H 126 H Calcium 8.4 L 8.2 L Cardiac Enzymes 12/15/17 12/15/17 12/16/17 Range/Units 14:35 20:52 01:39 Troponin I 0.10 H* 0.11 H* 0.11 H* (< 0.04) ng/mL 12/16/17 Range/Units 07:58 Troponin I 0.08 H* (< 0.04) ng/mL - ABG Interpretation ABG results: PT/INR, D-dimer PT 14.2 Seconds (9.4-12.1) H 12/15/17 07:27 - Impressions Impressions Chest CT 12/15/17 09:48 IMPRESSION: 1. No acute abnormalities seen in the chest. No evidence for pneumonia. 2. Scarring in both lungs. 3. Evidence for old granulomatous disease. 4. Bilateral small low-attenuation adrenal nodules with follow-up as recommended below. RECOMMENDATIONS: Given density measurements of less than 10 Hounsfield units, no further imaging evaluation is suggested D/ / 12/15/2017 11:27:18 Jared Gonzalez MD / [facility] Interpreting Provider: Jared Gonzalez MD Consult Discharge Plan - Plan Referrals: Jay Valenzuela DO [Primary Care Provider] -
[2017-12-16] MEDS ORDERED: Insulin LISPRO 300 UNITS/3 ML VIAL SQ SCH (12:00)
[2017-12-16] MEDS ORDERED: Potassium Chloride Elixir 20 MEQ/15 ML UDC PO ONE ×2 (12:08→12:10)
--- NOTE | 2017-12-16 12:14 | Infectious Disease Consult ---
Date of Encounter: 12/16/17 Time of Encounter: 11:55 Assessment and Plan (1) Sepsis Status: Acute Assessment and plan: The patient had four SIRS criteria on admission. Likely secondary to bacteremia. Improved. Fever curve improved. WBC trending down. Tachycardia and tachypnea have resolved. Blood cultures drawn 12/15/17 (peripherally) are positive 2/2 sets. Recommendations: Repeat blood cultures x 2 sets peripherally and 2 sets from the Perma-cath. Check rheumatoid factor. Get TTE. If negative, will likely need DALE. Recommend removal of HD catheter and 48 hour line holiday if possible. Continue Vancomycin IV. Pharmacy to dose. Goal trough ~15. Duration of treatment depends on the clinical picture. Monitor labs and for drug toxicity and dose-adjust antibiotics. Qualifiers: Qualified Code(s): A41.9 - Sepsis, unspecified organism (2) Bacteremia Status: Acute Assessment and plan: Causative organism: MRSA. Source: Unclear, but concern for Perma-cath as the source. Blood cultures drawn 12/15/17 from a peripheral stick are positive 2/2 sets. The patient has one major and one modified Modified Barron's Criteria. Recommendations as above. 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 Dose-adjust antibiotics based on HD status. Infectious Disease HPI - Data of Consult Patient: new to practice Consult date: 12/16/17 Requesting Physician: Zhou Stringer MD Primary Care Provider: Jay Valenzuela - Consult Narrative Reason for consult: MRSA bacteremia History of present illness: Ms. Garcia is a 67 year old female with a past medical history of CHF, COPD, diabetes, hypertension, rheumatoid arthritis not currently on any treatment, and chronic kidney disease recently started on hemodialysis Thursday, , and Thursday via a right upper chest permacath. The patient was admitted to the hospital December 15 for sepsis and elevated troponin. We are consulted December 16 for further recommendations for MRSA bacteremia. Briefly, the patient is a 67-year-old female with past medical history as stated above. The patient is unclear regarding the events leading up to her hospitalization, therefore, most of the information is obtained from medical record. The patient does be that she was in her usual state of health other than having some chills the night before presenting to the emergency department. She states she went to bed that night and the next thing she remembers is waking up in the hospital. According to the medical record, the patient was somnolent, lethargic, and febrile and we called EMS and brought her to the ER. Upon arrival, the patient was febrile, tachycardic, and had leukocytosis with neutrophilic predominance. Lactic acid was normal. Troponin was mildly elevated. Urinalysis appeared contaminated, but there is no bacteria. She had a MRSA nasal screen that was negative. Chest x-ray showed mild pulmonary vascular congestion and a trace right pleural effusion. She had bilateral lower extremity DVT study that was negative. Blood cultures were drawn 2 sets peripherally. She was started on Vanco and Levaquin and admitted to the hospital for further evaluation. Since admission, the patient has had a MAXIMUM TEMPERATURE of 100.4 in the past 24 hours. Her white blood cell count is under 15,000. Her troponin remains mildly elevated. Her renal function is indicative of her end-stage renal disease. Currently, she is on IV vancomycin. Blood cultures drawn in the emergency department are +2 out of 2 sets for MRSA. We have been asked to evaluate and make further recommendations. During my exam today, the patient states that overall she feels better today. She denies any fevers or chills or rigors. She denies any headache or neck pain. She denies any congestion, earache, or sore throat. She denies chest pain, shortness of breath, or cough. She denies any nausea, vomiting, diarrhea, or constipation. She has reported intermittently poor appetite, but she is eating a cookie during my assessment today. She denies any abdominal pain or urinary complaints. She does still make a small amount of urine but denies any dysuria or hematuria or urinary frequency. She denies pain in her joints or extremities or back. She denies any oral thrush or any skin lesions. She was recently hospitalized on November 07 through November 21 for CHF and COPD. At that time, she had blood cultures come back +1 out of 2 sets for Enterococcus faecalis. She received a total of 10 days of treatment while inpatient and her repeat blood cultures were negative. She had a permacath placed and she was started on dialysis at that time. She denies any problems with her dialysis catheter. She reports mild pain around the insertion site, but denies any redness or drainage. She states she is not missed any dialysis sessions and she did go on Thursday. The patient lives at home with her family. She denies any alcohol, or illicit drug use. She does smoke a half a pack of cigarettes per day. She does not work outside the home. She reports exposure to 3 dogs at home. She denies any chronic infectious diseases. She denies any recent travel outside the [facility]. CC: Zhou Stringer MD Past Med Surg Social Fam HX - Past Medical History Attestation: Yes The following information was validated with the patient. Source: patient, old records reviewed, nursing notes reviewed Medical history: arthritis, CHF, COPD, diabetes, GERD, hyperlipidemia, hypertension, RA, renal disease Additional medical history: HUSAM, Morbid obesity Psychiatric history: anxiety, bipolar - Past Surgical History Surgical History: angioplasty/stent, appendectomy, , cataract Additional surgical history: 1 cardiac stent - Social History Smoking Status: Current every day smoker Packs per day: 0.5 Smokeless Tobacco Status: No Alcohol use: none Drug use: none Occupational status: unemployed Current living situation: Home, With Family Activity Level: Uses cane/walker Recent Out of Country Travel Within the Last 8 Weeks: No Exposure or Possible Exposure to Illness During Travel: No - Family History Brother Hx Family Endocrine Disorder: Yes (DM) Father Living Status: Hx Family Cardiac Disorders: Yes Hx Family Neurologic Disorders: Yes (Brain aneurysm) Mother Living Status: Still Living Hx Family Cardiac Disorders: Yes Hx Family Respiratory Disorders: Yes (copd) Hx Family Cancer: Yes Hx Family Neurologic Disorders: Yes (alzheimer) Sister Living Status: Hx Family Endocrine Disorder: Yes (DM) Infectious Disease-CN:Meds RX: ALPRAZolam [Xanax 1 MG Tablet] 1 mg PO BID 04/15/17 [History] RX: Clopidogrel [Plavix] 75 mg PO DAILY 04/15/17 [History] RX: DULoxetine [Cymbalta] 30 mg PO BID 04/15/17 [History] RX: Famotidine [Heartburn Prevention] 20 mg PO DAILY 04/15/17 [History] RX: risperiDONE [Risperidone] 1 mg PO HS 04/15/17 [History] RX: Ranolazine [Ranexa] 500 mg PO BID 07/23/17 [History] RX: Rosuvastatin [Crestor] 40 mg PO QPM 07/23/17 [History] RX: Budesonide/Formoterol 160/4.5 [Symbicort 160/4.5] 2 puff IH BIDR 09/28/17 [History] RX: Furosemide [Lasix] 40 mg PO DAILY 09/28/17 [History] RX: HYDROcodone/Acet 5/325 mg [Corydon 5-325 mg] 1 tab PO BID PRN 09/28/17 [History] RX: Tiotropium [Spiriva] 1 puff IH DAILY 09/28/17 [History] RX: Ergocalciferol (VITAMIN D2) [Drisdol (50,000 Unit)] 50,000 unit PO QWEEK #4 capsule 10/04/17 [Rx] RX: Hydralazine HCl 100 mg PO TID #90 tablet 10/04/17 [Rx] RX: Furosemide [Lasix] 40 mg PO QAM 11/07/17 [History] RX: Carvedilol [Coreg] 25 mg PO BIDWM 30 Days #30 tablet 11/21/17 [Rx] RX: cloNIDine HCl [CloNIDine HCl] 0.1 mg PO TID 30 Days #90 tablet 11/21/17 [Rx] RX: metOLazone [Zaroxolyn] 5 mg PO DAILY@0730 30 Days #30 tablet 11/21/17 [Rx] Aspirin [Lo-Dose Aspirin EC] 81 mg PO DAILY 12/15/17 [History] NIFEdipine [Nifedipine ER] 90 mg PO DAILY 12/15/17 [History] RX: Insulin Regular U-500 [HumuLIN R U-500] 70 unit SQ TID 12/15/17 [History] RX: Trazodone HCl 100 mg PO HS 12/15/17 [History] Sevelamer [Renvela] 800 mg PO TID 12/15/17 [History] Allergy/AdvReac Type Severity Reaction Status Date / Time morphine Allergy Hallucinati Verified 09/27/17 17:49 ng Sulfa (Sulfonamide Allergy Rash Verified 09/27/17 17:49 Antibiotics) All systems: reviewed and no additional remarkable complaints except as stated Exam - Constitutional Vitals: Temp Pulse Resp BP Pulse Ox 98.7 F 75 18 184/62 96 12/16/17 10:57 12/16/17 10:57 12/16/17 10:57 12/16/17 10:57 12/16/17 10:57 General appearance: cooperative, no acute distress, obese - Head Head exam: Present: atraumatic, normal inspection, normocephalic - Eye Eye exam: Present: EOMI, normal appearance, PERRL Pupils: Present: normal accommodation Additional comments: No subconjunctival hemorrhage noted. - ENT ENT exam: Present: mucous membranes moist - Neck Neck exam: Present: normal inspection - Respiratory Respiratory exam: Present: CTAB. Absent: rales, respiratory distress, rhonchi, wheezes - Cardiovascular Cardiovascular exam: Present: RRR, +S1, +S2 - GI/Abdominal GI/Abdominal exam: Present: distended (obese), normal bowel sounds, soft. Absent: tenderness Additional comments: Hwang catheter noted to be draining clear yellow urine. - Extremities Exam Extremities exam: Present: normal inspection. Absent: joint swelling, pedal edema, tenderness - Back Exam Back exam: Present: normal inspection. Absent: paraspinal tenderness, vertebral tenderness - Neurological Exam Neurological exam: Present: alert, oriented X3, no focal deficits - Psychiatric Psychiatric exam: Present: normal affect, normal mood - Skin Skin exam: Present: dry, intact, normal color, warm Additional comments: No endocarditis stigmata noted. - Additional findings Additional findings: Perma-cath noted to the right upper chest with transparent dressing C/D/I. Mild tenderness noted with palpation of the insertion site, but no redness, warmth, or drainage noted. Infectious Disease CN: Results - Labs CBC & Chem 7: 12/18/17 10:15 12/18/17 10:15 Cultures: Cultures 12/15/17 07:55 Blood Culture - Preliminary Peripheral Venipuncture Gram Positive Cocci 12/15/17 08:01 Blood Culture - Preliminary Peripheral Venipuncture Gram Positive Cocci 12/15/17 08:07 Legionella Antigen - Final Urine,Clean Catch Streptococcus pneumoniae Antigen (M - Final Serology: Serology 12/15/17 12/15/17 12/15/17 Range/Units 12:30 12:30 10:02 Urine Color (Yellow) Urine Clarity (Clear) Urine pH (5.0-8.0) pH Units Ur Specific [place] (1.010-1.025) Urine Protein (Neg-Trace) mg/dL Urine Glucose (UA) (Normal) mg/dL Urine Ketones (Negative) mg/dL Urine Blood (Negative) Urine Nitrite (Negative) Urine Bilirubin (Negative) Urine Urobilinogen (Normal) mg/dL Ur Leukocyte Esterase (Negative) Urine Microscopic RBC (0-3) per hpf Urine Microscopic WBC (0-3) per hpf Ur Squamous Epith Cells (None-Few) per lpf Ur Transition Epith Cell (None-Few) per hpf Ur Renal Epithelial Cell (None-Few) per hpf Urine Bacteria (None-Few) per hpf Granular Casts (None Seen) per lpf Waxy Casts (None Seen) per lpf Ur Culture Indicated? (NO) Urine Creatinine mg/dL Protein/Creatinin Ratio (0.00-0.20) mg/mg Urine Total Protein (1-14) mg/dL Nasal Screen MRSA (PCR) Negative (Negative) A. baumannii (PCR) (Not Detect) Chlamy pneumoniae PCR Not Detected (Not Detect) Adenovirus (PCR) Not Detected (Not Detect) B. pertussis DNA (PCR) Not Detected (Not Detect) B.parapertussis DNA PCR Not Detected (Not Detect) Kerry albicans (PCR) (Not Detect) C. glabrata (PCR) (Not Detect) C. krusei (PCR) (Not Detect) C. parapsilosis (PCR) (Not Detect) C. tropicalis (PCR) (Not Detect) Coronavirus OC43 (PCR) Not Detected (Not Detect) Coronavirus HKU1 (PCR) Not Detected (Not Detect) Coronavirus 229E (PCR) Not Detected (Not Detect) Coronavirus NL63 (PCR) Not Detected (Not Detect) Enterobacteriac sp PCR (Not Detect) E. cloacae complex PCR (Not Detect) Enterococcus sp PCR (Not Detect) E. coli (PCR) (Not Detect) H. influenzae (PCR) (Not Detect) Hep Bs Antigen Nonreactive (Nonreactive) Hep Bs Antibody 0.00 mIU/mL Human Metapneumovir PCR Not Detected (Not Detect) Influenza A (H1) PCR Not Detected (Not Detect) Influ A (H1N1/09) PCR Not Detected (Not Detect) Influenza A (H3) PCR Not Detected (Not Detect) Influenza A Untype (PCR) Not Detected (Not Detect) Influenza Type B (PCR) Not Detected (Not Detect) Klebsiella oxytoca PCR (Not Detect) Klebsiella pneumoniae (Not Detect) List. monocytogenes PCR (Not Detect) M.pneumoniae DNA (PCR) Not Detected (Not Detect) N. meningitidis (PCR) (Not Detect) Parainfluenza 1 (PCR) Not Detected (Not Detect) Parainfluenza 2 (PCR) Not Detected (Not Detect) Parainfluenza 3 (PCR) Not Detected (Not Detect) Parainfluenza 4 (PCR) Not Detected (Not Detect) Proteus species (PCR) (Not Detect) RSV (PCR) Not Detected (Not Detect) Entero/Rhino (PCR) Not Detected (Not Detect) Serratia marcescens PCR (Not Detect) Staphylococcus sp PCR (Not Detect) Staph aureus (PCR) (Not Detect) mecA-Methicil Res Gene (Not Detect) Streptococcus sp PCR (Not Detect) Group A Strep DNA (Not Detect) Group B Strep (PCR) (Not Detect) Strep pneumoniae (PCR) (Not Detect) P. aeruginosa (PCR) (Not Detect) Sil/B-Vanco Res Genes (Not Detect) KPC (blaKPC) Detect PCR (Not Detect) 12/15/17 12/15/17 12/15/17 Range/Units 08:07 08:07 08:01 Urine Color Dark Yellow (Yellow) Urine Clarity Turbid A (Clear) Urine pH 5.0 (5.0-8.0) pH Units Ur Specific [place] 1.022 (1.010-1.025) Urine Protein >=1000 H (Neg-Trace) mg/dL Urine Glucose (UA) 250 H (Normal) mg/dL Urine Ketones Trace H (Negative) mg/dL Urine Blood Negative (Negative) Urine Nitrite Negative (Negative) Urine Bilirubin Small H (Negative) Urine Urobilinogen Normal (Normal) mg/dL Ur Leukocyte Esterase Moderate H (Negative) Urine Microscopic RBC 0-3 (0-3) per hpf Urine Microscopic WBC TNTC H (0-3) per hpf Ur Squamous Epith Cells Many H (None-Few) per lpf Ur Transition Epith Cell Few (None-Few) per hpf Ur Renal Epithelial Cell Few (None-Few) per hpf Urine Bacteria None Seen (None-Few) per hpf Granular Casts Moderate H (None Seen) per lpf Waxy Casts Few H (None Seen) per lpf Ur Culture Indicated? NO. A (NO) Urine Creatinine 146 mg/dL Protein/Creatinin Ratio 8.34 H (0.00-0.20) mg/mg Urine Total Protein 1218 H (1-14) mg/dL Nasal Screen MRSA (PCR) (Negative) A. baumannii (PCR) Not Detected (Not Detect) Chlamy pneumoniae PCR (Not Detect) Adenovirus (PCR) (Not Detect) B. pertussis DNA (PCR) (Not Detect) B.parapertussis DNA PCR (Not Detect) Kerry albicans (PCR) Not Detected (Not Detect) C. glabrata (PCR) Not Detected (Not Detect) C. krusei (PCR) Not Detected (Not Detect) C. parapsilosis (PCR) Not Detected (Not Detect) C. tropicalis (PCR) Not Detected (Not Detect) Coronavirus OC43 (PCR) (Not Detect) Coronavirus HKU1 (PCR) (Not Detect) Coronavirus 229E (PCR) (Not Detect) Coronavirus NL63 (PCR) (Not Detect) Enterobacteriac sp PCR Not Detected (Not Detect) E. cloacae complex PCR Not Detected (Not Detect) Enterococcus sp PCR Not Detected (Not Detect) E. coli (PCR) Not Detected (Not Detect) H. influenzae (PCR) Not Detected (Not Detect) Hep Bs Antigen (Nonreactive) Hep Bs Antibody mIU/mL Human Metapneumovir PCR (Not Detect) Influenza A (H1) PCR (Not Detect) Influ A (H1N1/09) PCR (Not Detect) Influenza A (H3) PCR (Not Detect) Influenza A Untype (PCR) (Not Detect) Influenza Type B (PCR) (Not Detect) Klebsiella oxytoca PCR Not Detected (Not Detect) Klebsiella pneumoniae Not Detected (Not Detect) List. monocytogenes PCR Not Detected (Not Detect) M.pneumoniae DNA (PCR) (Not Detect) N. meningitidis (PCR) Not Detected (Not Detect) Parainfluenza 1 (PCR) (Not Detect) Parainfluenza 2 (PCR) (Not Detect) Parainfluenza 3 (PCR) (Not Detect) Parainfluenza 4 (PCR) (Not Detect) Proteus species (PCR) Not Detected (Not Detect) RSV (PCR) (Not Detect) Entero/Rhino (PCR) (Not Detect) Serratia marcescens PCR Not Detected (Not Detect) Staphylococcus sp PCR Not Detected (Not Detect) Staph aureus (PCR) DETECTED A (Not Detect) mecA-Methicil Res Gene DETECTED A (Not Detect) Streptococcus sp PCR Not Detected (Not Detect) Group A Strep DNA Not Detected (Not Detect) Group B Strep (PCR) Not Detected (Not Detect) Strep pneumoniae (PCR) Not Detected (Not Detect) P. aeruginosa (PCR) Not Detected (Not Detect) Sil/B-Vanco Res Genes Not Detected (Not Detect) KPC (blaKPC) Detect PCR Not Detected (Not Detect) Consult Discharge Plan - Plan Referrals: Jay Valenzuela DO [Primary Care Provider] - - Attending Attestation I examined this patient and my medical decision-making was reviewed with the Resident Physician. I agree with the documented findings, disposition and treatment plan as described except to the extent set forth below. This is an addendum to original report dictated by Edel Cuadra CNP. Please re george to Edel's note for full detail. Patient is a 67-year-old woman with past medical history mentioned below including diabetes mellitus type 2, rheumatoid arthritis, kidney disease who was recently restarted on hemodialysis Tuesdays and Thursday with a permacath in the right upper chest came in with sepsis like picture and was found to have MRSA bacteremia. We were consulted to make recommendations. Patient did have sepsis criteria on admission. Source of bacteremia not clear. The dialysis catheter does not appear frankly infected. It still could be the source of infection. I did discuss with the nephrology team. We will get the patient dialyzed, remove the dialysis catheter and repeat blood cultures in 48 hours. If the patient stops being bacteremic with simple another dialysis catheter. Patient also will need a TTE and a DALE prior to discharge. Duration of treatment depends on clinical picture but minimum 2 weeks IV.
--- NOTE | 2017-12-16 14:30 | Cardiology Consult Note ---
<Kaur Luis L - Last Filed: 12/16/17 14:25> Date of Encounter: 12/16/17 Time of Encounter: 14:00 Assessment and Plan (1) Elevated troponin Current Visit: Yes Status: Acute Flat, adynamic troponin elevation in the setting of ESRD on HD, severely elevated BP, and sepsis. Non-specific ST/T wave abnormalities, no chest pain reported. This is likely demand ischemia. Check TTE. Patient has hx of CAD, follows with Deputy Prosecuting Attorney at [facility], recommend close outpatient follow-up. Continue plavix, statin, BB, and ranexa. Unclear why patient is not on aspirin. If no significant abnormalities on TTE, anticipate sign-off. Close outpatient follow-up with primary Deputy Prosecuting Attorney. (2) CAD (coronary artery disease) Current Visit: No Status: Chronic Qualifiers: Coronary Disease-Associated Artery/Lesion type: [place] artery [place] vs. transplanted heart: [place] heart Associated angina: without angina Qualified Code(s): I25.10 - Atherosclerotic heart disease of [place] coronary artery without angina pectoris (3) Bacteremia Current Visit: Yes Status: Acute Positive blood cultures. ID consulted and following. Recommend echocardiogram. Discussion w patient/family: The assessment and plan as outlined above was discussed with the patient and/or family members who expressed understanding and agreement. All questions were answered. Thank you for involving us in the care of your patient. Please call with any questions. The patient will be discussed and reviewed with Dr. Falcon; changes to be made accordingly. History of Present Illness Consult date: 12/16/17 Requesting physician: Zhou Stringer Consult reason: Elevated troponin Chief complaint: Fever History of present illness: Ms. Garcia is a 67 year old female with PMHx significant of dCHF, COPD, DMII, HTN, CAD s/p remote PCI, and ESRD with recently starting HD who presented to the ED with complaints of altered mental status, subjective fevers and chills. Upon arrival to ED she was found to be septic with WBC >30, now 15.9. Temp 102.3, and blood cultures are now positive. Cardiology consulted for elevated troponin. No ECG changes present. No chest pain described. Denies shortness of breath. Past Med Surg Social Fam HX - Past Medical History Medical history: arthritis, CHF, COPD, coronary artery disease, diabetes, GERD, hyperlipidemia, hypertension, RA, renal disease Additional medical history: HUSAM, Morbid obesity Psychiatric history: anxiety, bipolar - Past Surgical History Surgical History: angioplasty/stent, appendectomy, , cataract Additional surgical history: 1 cardiac stent - Social History Smoking Status: Current every day smoker Packs per day: 0.5 Smokeless Tobacco Status: No Alcohol use: none Drug use: none - Family History Mother Living Status: Still Living Hx Family Cardiac Disorders: Yes Hx Family Respiratory Disorders: Yes (copd) Hx Family Cancer: Yes Hx Family Neurologic Disorders: Yes (alzheimer) Father Living Status: Hx Family Cardiac Disorders: Yes Hx Family Neurologic Disorders: Yes (Brain aneurysm) Brother Hx Family Endocrine Disorder: Yes (DM) Sister Living Status: Hx Family Endocrine Disorder: Yes (DM) Medications and Allergies ALPRAZolam [Xanax 1 MG Tablet] 1 mg PO BID 04/15/17 [History] Clopidogrel [Plavix] 75 mg PO DAILY 04/15/17 [History] DULoxetine [Cymbalta] 30 mg PO BID 04/15/17 [History] Famotidine [Heartburn Prevention] 20 mg PO DAILY 04/15/17 [History] risperiDONE [Risperidone] 1 mg PO HS 04/15/17 [History] Ranolazine [Ranexa] 500 mg PO BID 07/23/17 [History] Rosuvastatin [Crestor] 40 mg PO QPM 07/23/17 [History] Budesonide/Formoterol 160/4.5 [Symbicort 160/4.5] 2 puff IH BIDR 09/28/17 [History] Furosemide [Lasix] 40 mg PO DAILY 09/28/17 [History] HYDROcodone/Acet 5/325 mg [Bridgeton 5-325 mg] 1 tab PO BID PRN 09/28/17 [History] Tiotropium [Spiriva] 1 puff IH DAILY 09/28/17 [History] Ergocalciferol (VITAMIN D2) [Drisdol (50,000 Unit)] 50,000 unit PO QWEEK #4 capsule 10/04/17 [Rx] Hydralazine HCl 100 mg PO TID #90 tablet 10/04/17 [Rx] Furosemide [Lasix] 40 mg PO QAM 11/07/17 [History] Carvedilol [Coreg] 25 mg PO BIDWM 30 Days #30 tablet 11/21/17 [Rx] cloNIDine HCl [CloNIDine HCl] 0.1 mg PO TID 30 Days #90 tablet 11/21/17 [Rx] metOLazone [Zaroxolyn] 5 mg PO DAILY@0730 30 Days #30 tablet 11/21/17 [Rx] Aspirin [Lo-Dose Aspirin EC] 81 mg PO DAILY 12/15/17 [History] Insulin Regular U-500 [HumuLIN R U-500] 70 unit SQ TID 12/15/17 [History] NIFEdipine [Nifedipine ER] 90 mg PO DAILY 12/15/17 [History] Sevelamer [Renvela] 800 mg PO TID 12/15/17 [History] Trazodone HCl 100 mg PO HS 12/15/17 [History] Allergy/AdvReac Type Severity Reaction Status Date / Time morphine Allergy Hallucinati Verified 09/27/17 17:49 ng Sulfa (Sulfonamide Allergy Rash Verified 09/27/17 17:49 Antibiotics) All Systems Review: The remainder of the systems were reviewed and are negative - Cardiovascular Cardiovascular: as per HPI Physical Examination Vital Signs, Last 4 Hours Temp Pulse Resp BP Pulse Ox 12/16/17 10:57 98.7 F 75 18 184/62 96 12/16/17 10:40 20 95 General: Conversant, No Apparent Distress, Other (obese) HEENT: Atraumatic, Normocephaly, Mucus Membranes Moist Cardiac: Reg Rate and Rhythm, Normal S1 and S2 Neuro: Alert and responsive Abdomen: Soft Skin: No rashes noted on visualized skin, Other (right upper chest wall permacath) Musculoskeletal: No Chest Wall Tenderness Extremities: Other (+2 BLE edema) Results 12/16/17 01:39 12/16/17 01:39 Lab Results 12/15/17 12/15/17 12/16/17 14:35 20:52 01:39 WBC 15.9 H D Hgb 9.7 L Hct 29.9 L Plt Count 165 Sodium 131 L Potassium 3.2 L D Chloride 96 L Carbon Dioxide 25 BUN 32 H Creatinine 5.76 H Glucose 165 H Calcium 8.4 L Troponin I 0.10 H* 0.11 H* 12/16/17 12/16/17 12/16/17 01:39 01:39 07:58 WBC Hgb Hct Plt Count Sodium 132 L Potassium 3.3 L Chloride 97 L Carbon Dioxide 25 BUN 38 H Creatinine 6.00 H Glucose 126 H Calcium 8.2 L Troponin I 0.11 H* 0.08 H* Active Medications Albuterol Sulfate (Albuterol Inhaler) 2 puff IH Q6H PRN PRN Reason: Dyspnea Stop: 06/16/18 09:52 Budesonide/Formoterol Fumarate (Symbicort) 2 puff IH BIDR [facility]; Protocol Stop: 06/16/18 10:01 Last Admin: 12/16/17 10:37 Dose: 2 puff Carvedilol (Coreg) 25 mg PO BIDWM [facility]; Protocol Stop: 06/16/18 17:01 Last Admin: 12/16/17 10:48 Dose: 25 mg Clonidine HCl (Clonidine Hcl) 0.1 mg PO TID [facility] Stop: 06/16/18 15:01 Last Admin: 12/16/17 10:48 Dose: 0.1 mg Clopidogrel Bisulfate (Plavix) 75 mg PO DAILY [facility] Stop: 06/17/18 09:01 Last Admin: 12/16/17 10:48 Dose: 75 mg Dextrose/Water (Dextrose 50% (Syg)) 25 ml IVP AD PRN PRN Reason: Hypoglycemia Stop: 06/17/18 07:23 Famotidine (Pepcid) 20 mg PO DAILY [facility]; Protocol Stop: 06/16/18 10:31 Last Admin: 12/16/17 10:48 Dose: 20 mg Glucagon (Glucagen) 1 mg IM ONCE PRN PRN Reason: Hypoglycemia Stop: 06/17/18 07:23 Glucose (Gluctose) 15 gm PO ONCE PRN PRN Reason: Hypoglycemia Stop: 06/17/18 07:23 Glucose (Gluctose) 30 gm PO ONCE PRN PRN Reason: Hypoglycemia Stop: 06/17/18 07:23 Heparin Sodium (Porcine) (Heparin) 5,000 unit SQ Q8HR [facility] Stop: 06/16/18 16:01 Last Admin: 12/16/17 10:49 Dose: 5,000 unit Heparin Sodium (Porcine) (Heparin) 0 unit IV ONCE PRN PRN Reason: Hemodialysis Catheter Packing Vancomycin HCl 1 each/ Sodium (Chloride) 250 mls @ 167 mls/hr IVPB RPHPROT PRN; Protocol PRN Reason: VANCOMYCIN Stop: 06/16/18 10:01 Dextrose (Dextrose 5%) 1,000 mls @ 100 mls/hr IVC .Q10H PRN PRN Reason: HYPOGLYCEMIA Stop: 06/17/18 07:23 Sodium Chloride (0.9 % Sodium Chloride) 250 mls @ 937.5 mls/hr IVC .Q16M PRN PRN Reason: Hypotension Stop: 06/17/18 09:28 Sodium Chloride (0.9 % Sodium Chloride) 1,000 mls @ 0 mls/hr PRIME .Q0M [facility]ION Stop: 06/17/18 09:31 Vancomycin HCl 1,000 mg/ (Sodium Chloride) 250 mls @ 167 mls/hr IVPB ONCE ONE; Protocol Stop: 12/16/17 16:29 Insulin Human Lispro (Humalog) 0 units SQ Q6HR [facility]; Protocol Stop: 06/17/18 12:01 Last Admin: 12/16/17 11:27 Dose: 4 units Naloxone HCl (Narcan) 0.4 mg IVP Q2MIN PRN PRN Reason: SEE COMMENTS Stop: 06/16/18 09:07 Ranolazine (Ranexa) 500 mg PO BID [facility] Stop: 06/16/18 21:01 Last Admin: 12/16/17 10:48 Dose: 500 mg Risperidone (Risperdal) 1 mg PO DAILY [facility] Stop: 06/17/18 09:01 Last Admin: 12/16/17 10:48 Dose: 1 mg Rosuvastatin Calcium (Crestor) 40 mg PO HS [facility] Stop: 06/16/18 21:01 Last Admin: 12/15/17 22:31 Dose: 40 mg Tiotropium [place] (Spiriva) 18 mcg IH DAILYR [facility] Stop: 06/17/18 10:01 Last Admin: 12/16/17 10:38 Dose: 18 mcg - Imaging and Cardiology Echo: report reviewed Other Results: 12 hour tele: avg HR=72 SR. No events noted. - EKG Interpretation EKG results cardiology: personally reviewed Consult Discharge Plan - Plan Referrals: Jay Valenzuela DO [Primary Care Provider] - <Perry Falcon - Last Filed: 12/17/17 11:27> Date of Encounter: 12/17/17 - Attending Attestation Patient was seen and evaluated independently by me. Findings, assessment and plan were discussed at length with patient, questions answered. Agree with nurse practitioner's/resident's documentation. Addition as follows, Seen during HD. 67 yoCF ho ESRD on HD, CAD remote PCI, HFpEF, DM, HTN. P/w AMS, fever found MRSA bacteremia. Consulted for trop 0.1 flat. No cp, dyspnea, palpitations. NAD, CTA, RR, 2+ LE edema to lower shins. NS STT on ECG. A: Mild troponin elevation, likely demand ischemia due to sepsis MRSA bacteremia ESRD on HD CAD HFpEF P: TTE, if no relevant findings, no further inpt cardiac w/u Perry Falcon MD, PhD Assessment and Plan Discussion w patient/family: The assessment and plan as outlined above was discussed with the patient and/or family members who expressed understanding and agreement. All questions were answered. Thank you for involving us in the care of your patient. Please call with any questions. History of Present Illness History of present illness: Ms. Garcia is a 67 year old female All Systems Review: The remainder of the systems were reviewed and are negative Physical Examination Vital Signs, Last 4 Hours Temp Resp BP 12/17/17 10:15 146/60 12/17/17 10:00 149/56 12/17/17 09:45 169/62 12/17/17 09:30 153/59 12/17/17 09:15 167/57 12/17/17 09:00 166/57 12/17/17 08:45 163/58 12/17/17 08:30 98.5 F 16 161/58 Results 12/17/17 04:12 12/17/17 04:12 Lab Results 12/17/17 12/17/17 04:12 04:12 WBC 10.9 Hgb 8.8 L Hct 27.9 L Plt Count 139 L Sodium 134 L Potassium 3.5 Chloride 98 Carbon Dioxide 25 BUN 26 H Creatinine 4.16 H Glucose 110 H Calcium 8.3 L
[2017-12-16] MEDS: Insulin LISPRO 300 UNITS/3 ML VIAL SQ SCH (18:26)
[2017-12-17] MEDS: *HR* Heparin 5,000 UNIT/ML VIAL SQ SCH ×3 (00:15→17:35)
[2017-12-17 04:52] LABS: Basophils % 0.4 %; Eosinophils # 0.3 K/mcL (0.0-0.6); Eosinophils % 2.4 %; Hematocrit 27.9 % (35.3-44.9); Hemoglobin 8.8 g/dL (11.5-15.4); Immature Granulocytes % 0.5 % (0-4); Lymphocytes # 0.8 K/mcL (0.6-4.6); Lymphocytes % 6.9 %; Mean Corpuscular HGB Conc 31.5 g/dL (31.6-35.5); Mean Corpuscular Hemoglobin 26.6 pg (28.0-33.3); Mean Corpuscular Volume 84.3 fL (83.0-100.0); Mean Platelet Volume 9.3 fL (9.4-12.4); Monocytes # 0.7 K/mcL (0.0-1.3); Monocytes % 6.1 %; Neutrophils # 9.2 K/mcL (1.6-8.9); Platelet Count 139 K/mcL (140-400); Red Blood Count 3.31 M/mcL (3.82-4.97); Red Cell Distribution Width 16.5 % (11.5-14.5); Segmented Neutrophils % 83.7 %
[2017-12-17 05:08] LABS: Calcium 8.3 mg/dL (8.6-10.3); Potassium 3.5 mEq/L (3.5-5.1)
[2017-12-17] MEDS ORDERED: *HR* Heparin 10,000 UNIT/10 ML VIAL IV PRN (06:59)
[2017-12-17] MEDS ORDERED: 0.9 % Sodium Chloride 250 ML IVC PRN (06:59)
[2017-12-17] MEDS ORDERED: 0.9 % Sodium Chloride 1,000 ML PRIME SCH (07:00)
[2017-12-17] MEDS: Tiotropium 18 MCG inhalation IH SCH (07:38)
[2017-12-17] MEDS: Budesonide/Formoterol 160/4.5 1 PUFF INH IH SCH ×2 (07:38→22:59)
[2017-12-17] MEDS ORDERED: 0.9 % Sodium Chloride 2,000 ML ONE (08:01)
--- NOTE | 2017-12-17 09:56 | Nephrology Progress Note ---
Addendum entered and electronically signed by Jacinto Qiu MD 12/17/17 23:43: I examined this patient and discussed the medical decision-making with LUIS Wells. I agree with the documented findings, disposition and treatment plan as described except to the extent set forth below. Patient was seen on dialysis today. Per the recommendation of infectious disease the tunneled line was removed today. On a previous labs she should be able to make it through the weekend without needing dialysis, however, I will leave the final decision to Dr. Bernal will be rounding on Thursday. If it is felt that she will not make it through the weekend without dialysis she may need a tunneled catheter on Thursday for possible dialysis on Thursday. Original Note: Date of Encounter: 12/17/17 Time of Encounter: 09:52 - Assessment and Plan (1) TAMEKA (acute kidney injury) Current Visit: No Status: Acute Current regimen is TTS at [facility]. HD in progress today. Avoid nephrotoxins and renal dose. (2) Hypokalemia Current Visit: Yes Status: Acute K is 3.5. (3) Acute and chronic respiratory failure with hypercapnia Current Visit: No Status: Acute Per primary. (4) Elevated troponin Current Visit: Yes Status: Acute Trop is 0.08, per primary. (5) Bacteremia Current Visit: Yes Status: Acute Blood cultures drawn from Tunneled Cath in HD. Will place IR consult for permacath removal, they are aware. Also placed and IR consult for tomorrow for temp line to be placed. Dr. Bernal takes over call in the morning, when I spoke with IR, advised them to reach out to him before placing temp line to ensure that is what he would like to do. ID recommends a line holiday for 48 hours. Subjective Principal diagnosis: fever/lethargic Interval history: Pt seen an examined, during HD, tolerating well. Denies CP or SOB. Objective - Vital Signs Vital signs: Vital Signs Temp Pulse Resp BP Pulse Ox 12/17/17 09:30 153/59 12/17/17 09:15 167/57 12/17/17 09:00 166/57 12/17/17 08:45 163/58 12/17/17 08:30 98.5 F 16 161/58 12/17/17 03:21 98.5 F 75 15 179/77 96 12/17/17 00:04 98.5 F 72 16 160/61 95 12/16/17 20:32 18 96 12/16/17 19:05 100.9 F H 82 17 168/59 95 12/16/17 17:22 101.0 F H 18 172/67 12/16/17 17:05 148/58 12/16/17 16:50 133/49 12/16/17 16:35 148/51 12/16/17 16:20 129/51 12/16/17 16:05 147/80 12/16/17 15:50 145/59 12/16/17 15:35 141/55 12/16/17 15:20 136/58 12/16/17 15:05 134/56 12/16/17 14:50 128/60 12/16/17 14:35 133/50 12/16/17 14:20 140/56 12/16/17 14:05 100.1 F H 18 136/56 12/16/17 10:57 98.7 F 75 18 184/62 96 12/16/17 10:40 20 95 Intake and Output 12/16/17 12/17/17 12/17/17 23:59 07:59 15:59 Intake Total 840 / 840 Output Total 2600 / 2600 Balance -2600 / -2600 840 / 840 Intake: Oral 240 / 240 Intake, Rinseback and Flushes 600 / 600 Output: Total Dialysis (HD) Output 2600 / 2600 Other: Meal Breakfast Percent of Meal Consumed 100% Stool Size Large Stool Color Brown Blood Glucose* 189 Hemodialysis Net Fluid Removed 1999 865 (mL) - General Appearance General appearance: Present: well-developed, well-nourished EENT: Present: ATNC, hearing intact, vision intact Neck: Present: supple Respiratory: Present: clear Cardiology: Present: no edema, normal S1, normal S2 Dialysis Vascular Access: Venous Catheter (Tunneled Line, DRSG C/D/I) Gastrointestinal: Present: normoactive bowel sounds, no tenderness, no guarding Integumentary: Present: no rash, warm and dry Neurologic: Present: alert and oriented x3 Psychiatric: Present: mood/affect appropriate, cooperative - Lab 12/17/17 04:12 12/17/17 04:12 Most recent lab results Calcium 8.3 mg/dL (8.6-10.3) L 12/17/17 04:12 Phosphorus 2.4 mg/dL (2.7-4.5) L 12/15/17 07:27 Magnesium 1.3 mg/dL (1.6-2.6) L 12/15/17 07:27 Urine Creatinine 146 mg/dL 12/15/17 08:07 Urine Total Protein 1218 mg/dL (1-14) H 12/15/17 08:07 Consult Discharge Plan - Plan Referrals: Jay Valenzuela DO [Primary Care Provider] -
[2017-12-17] MEDS ORDERED: Levofloxacin 500 MG/100 ML 500 MG/100 ML BAG IVPB SCH (10:00)
[2017-12-17 10:50] LABS: Total Volume 24 Hour,Urine 1.52 Liters (0.60-1.60)
--- NOTE | 2017-12-17 11:36 | Infectious Disease Progress No ---
Date of Encounter: 12/17/17 Time of Encounter: 10:30 - Assessment and Plan (1) Sepsis Current Visit: Yes Status: Acute The patient had four SIRS criteria on admission. Likely secondary to bacteremia. Improved. Fever curve improved. WBC normal. Tachycardia and tachypnea have resolved. Blood cultures drawn 12/15/17 (peripherally) are positive 2/2 sets. Recommendations: Repeat blood cultures x 2 sets peripherally and 2 sets from the Perma-cath. Check rheumatoid factor. Get TTE. If negative, will likely need DLAE. Recommend removal of HD catheter and 48 hour line holiday if possible. Discussed with nephrology. Repeat blood cultures after Perma-cath removal. Continue Vancomycin IV. Pharmacy to dose. Goal trough ~15. Duration of treatment depends on the clinical picture. Monitor labs and for drug toxicity and dose-adjust antibiotics. Qualifiers: Qualified Code(s): A41.9 - Sepsis, unspecified organism (2) Bacteremia Current Visit: Yes Status: Acute Causative organism: MRSA. Source: Unclear, but concern for Perma-cath as the source. Blood cultures drawn 12/15/17 from a peripheral stick are positive 2/2 sets. The patient has one major and one modified Modified Barrno's Criteria. Recommendations as above. (3) Elevated troponin I level Current Visit: No Status: Acute Cardiology consulted. 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 Dose-adjust antibiotics based on HD status. - Subjective Interval history: Patient seen and examined in the dialysis unit. No acute events noted overnight. Patient states overall she feels well today. The home. Denies any fevers or chills or rigors. Denies chest pain, shortness of breath, or cough. Denies nausea, vomiting, diarrhea, or constipation. She denies any abdominal pa in or urinary complaints. She denies any oral thrush or any skin lesions. She reports the pain adjacent to her permacath site has resolved. Infect Dis PN-Objective Data - Labs CBC & Chem 7: 12/18/17 10:15 12/18/17 10:15 Labs: Laboratory Results - last 24 hr 12/13/17 12/15/17 12/16/17 09:00 10:59 20:21 WBC RBC Hgb Hct MCV MCH MCHC RDW Plt Count MPV Immature Gran % Seg Neutrophils % Lymphocytes % Monocytes % Eosinophils % Basophils % Neutrophils # Lymphocytes # Monocytes # Eosinophils # Basophils # Sodium Potassium Chloride Carbon Dioxide BUN Creatinine Est GFR ( Amer) Est GFR (Non-Af Amer) BUN/Creatinine Ratio Glucose POC Glucose 183 H 189 H Calculated Osmolality Calcium Urine Total Volume 1.52 12/17/17 12/17/17 04:12 04:12 WBC 10.9 RBC 3.31 L Hgb 8.8 L Hct 27.9 L MCV 84.3 MCH 26.6 L MCHC 31.5 L RDW 16.5 H Plt Count 139 L MPV 9.3 L Immature Gran % 0.5 Seg Neutrophils % 83.7 Lymphocytes % 6.9 Monocytes % 6.1 Eosinophils % 2.4 Basophils % 0.4 Neutrophils # 9.2 H Lymphocytes # 0.8 Monocytes # 0.7 Eosinophils # 0.3 Basophils # 0.0 Sodium 134 L Potassium 3.5 Chloride 98 Carbon Dioxide 25 BUN 26 H Creatinine 4.16 H Est GFR ( Amer) 13 L Est GFR (Non-Af Amer) 11 L BUN/Creatinine Ratio 6 Glucose 110 H POC Glucose Calculated Osmolality 283 Calcium 8.3 L Urine Total Volume Cultures: Cultures 12/17/17 09:17 Blood Culture - Preliminary Peripheral Venipuncture Culture is incubating and being continuously monitored for growth. Final report to follow. 12/17/17 09:20 Blood Culture - Preliminary Central Venous Catheter Culture is incubating and being continuously monitored for growth. Final report to follow. 12/17/17 09:25 Blood Culture - Preliminary Central Venous Catheter Culture is incubating and being continuously monitor ed for growth. Final report to follow. 12/17/17 09:15 Blood Culture - Preliminary Peripheral Venipuncture Culture is incubating and being continuously monitored for growth. Final report to follow. 12/15/17 08:01 Blood Culture - Preliminary Peripheral Venipuncture Staphylococcus aureus 12/15/17 07:55 Blood Culture - Preliminary Peripheral Venipuncture Staphylococcus aureus 12/15/17 08:07 Legionella Antigen - Final Urine,Clean Catch Streptococcus pneumoniae Antigen (M - Final Serology 12/15/17 12/15/17 12/15/17 Range/Units 12:30 12:30 10:02 Urine Color (Yellow) Urine Clarity (Clear) Urine pH (5.0-8.0) pH Units Ur Specific [place] (1.010-1.025) Urine Protein (Neg-Trace) mg/dL Urine Glucose (UA) (Normal) mg/dL Urine Ketones (Negative) mg/dL Urine Blood (Negative) Urine Nitrite (Negative) Urine Bilirubin (Negative) Urine Urobilinogen (Normal) mg/dL Ur Leukocyte Esterase (Negative) Urine Microscopic RBC (0-3) per hpf Urine Microscopic WBC (0-3) per hpf Ur Squamous Epith Cells (None-Few) per lpf Ur Transition Epith Cell (None-Few) per hpf Ur Renal Epithelial Cell (None-Few) per hpf Urine Bacteria (None-Few) per hpf Granular Casts (None Seen) per lpf Waxy Casts (None Seen) per lpf Ur Culture Indicated? (NO) Urine Total Volume (0.60-1.60) Liters Urine Creatinine Ur Creatinine 24 Hour Ur Total Protein 24 Hr Protein/Creatinin Ratio (0.00-0.20) mg/mg Urine Sodium Ur Sodium 24 Hour Urine Urea Nitrogen Ur Urea Nitrogen 24 Hr Urine Total Protein Nasal Screen MRSA (PCR) Negative (Negative) A. baumannii (PCR) (Not Detect) Chlamy pneumoniae PCR Not Detected (Not Detect) Adenovirus (PCR) Not Detected (Not Detect) B. pertussis DNA (PCR) Not Detected (Not Detect) B.parapertussis DNA PCR Not Detected (Not Detect) Kerry albicans (PCR) (Not Detect) C. glabrata (PCR) (Not Detect) C. krusei (PCR) (Not Detect) C. parapsilosis (PCR) (Not Detect) C. tropicalis (PCR) (Not Detect) Coronavirus OC43 (PCR) Not Detected (Not Detect) Coronavirus HKU1 (PCR) Not Detected (Not Detect) Coronavirus 229E (PCR) Not Detected (Not Detect) Coronavirus NL63 (PCR) Not Detected (Not Detect) Enterobacteriac sp PCR (Not Detect) E. cloacae complex PCR (Not Detect) Enterococcus sp PCR (Not Detect) E. coli (PCR) (Not Detect) H. influenzae (PCR) (Not Detect) Hep Bs Antigen Nonreactive (Nonreactive) Hep Bs Antibody 0.00 mIU/mL Human Metapneumovir PCR Not Detected (Not Detect) Influenza A (H1) PCR Not Detected (Not Detect) Influ A (H1N1/09) PCR Not Detected (Not Detect) Influenza A (H3) PCR Not Detected (Not Detect) Influenza A Untype (PCR) Not Detected (Not Detect) Influenza Type B (PCR) Not Detected (Not Detect) Klebsiella oxytoca PCR (Not Detect) Klebsiella pneumoniae (Not Detect) List. monocytogenes PCR (Not Detect) M.pneumoniae DNA (PCR) Not Detected (Not Detect) N. meningitidis (PCR) (Not Detect) Parainfluenza 1 (PCR) Not Detected (Not Detect) Parainfluenza 2 (PCR) Not Detected (Not Detect) Parainfluenza 3 (PCR) Not Detected (Not Detect) Parainfluenza 4 (PCR) Not Detected (Not Detect) Proteus species (PCR) (Not Detect) RSV (PCR) Not Detected (Not Detect) Entero/Rhino (PCR) Not Detected (Not Detect) Serratia marcescens PCR (Not Detect) Staphylococcus sp PCR (Not Detect) Staph aureus (PCR) (Not Detect) mecA-Methicil Res Gene (Not Detect) Streptococcus sp PCR (Not Detect) Group A Strep DNA (Not Detect) Group B Strep (PCR) (Not Detect) Strep pneumoniae (PCR) (Not Detect) P. aeruginosa (PCR) (Not Detect) Sil/B-Vanco Res Genes (Not Detect) KPC (blaKPC) Detect PCR (Not Detect) 12/15/17 12/15/17 12/15/17 Range/Units 08:07 08:07 08:01 Urine Color Dark Yellow (Yellow) Urine Clarity Turbid A (Clear) Urine pH 5.0 (5.0-8.0) pH Units Ur Specific [place] 1.022 (1.010-1.025) Urine Protein >=1000 H (Neg-Trace) mg/dL Urine Glucose (UA) 250 H (Normal) mg/dL Urine Ketones Trace H (Negative) mg/dL Urine Blood Negative (Negative) Urine Nitrite Negative (Negative) Urine Bilirubin Small H (Negative) Urine Urobilinogen Normal (Normal) mg/dL Ur Leukocyte Esterase Moderate H (Negative) Urine Microscopic RBC 0-3 (0-3) per hpf Urine Microscopic WBC TNTC H (0-3) per hpf Ur Squamous Epith Cells Many H (None-Few) per lpf Ur Transition Epith Cell Few (None-Few) per hpf Ur Renal Epithelial Cell Few (None-Few) per hpf Urine Bacteria None Seen (None-Few) per hpf Granular Casts Moderate H (None Seen) per lpf Waxy Casts Few H (None Seen) per lpf Ur Culture Indicated? NO. A (NO) Urine Total Volume (0.60-1.60) Liters Urine Creatinine 146 Ur Creatinine 24 Hour Ur Total Protein 24 Hr Protein/Creatinin Ratio 8.34 H (0.00-0.20) mg/mg Urine Sodium Ur Sodium 24 Hour Urine Urea Nitrogen Ur Urea Nitrogen 24 Hr Urine Total Protein 1218 H Nasal Screen MRSA (PCR) (Negative) A. baumannii (PCR) Not Detected (Not Detect) Chlamy pneumoniae PCR (Not Detect) Adenovirus (PCR) (Not Detect) B. pertussis DNA (PCR) (Not Detect) B.parapertussis DNA PCR (Not Detect) Kerry albicans (PCR) Not Detected (Not Detect) C. glabrata (PCR) Not Detected (Not Detect) C. krusei (PCR) Not Detected (Not Detect) C. parapsilosis (PCR) Not Detected (Not Detect) C. tropicalis (PCR) Not Detected (Not Detect) Coronavirus OC43 (PCR) (Not Detect) Coronavirus HKU1 (PCR) (Not Detect) Coronavirus 229E (PCR) (Not Detect) Coronavirus NL63 (PCR) (Not Detect) Enterobacteriac sp PCR Not Detected (Not Detect) E. cloacae complex PCR Not Detected (Not Detect) Enterococcus sp PCR Not Detected (Not Detect) E. coli (PCR) Not Detected (Not Detect) H. influenzae (PCR) Not Detected (Not Detect) Hep Bs Antigen (Nonreactive) Hep Bs Antibody mIU/mL Human Metapneumovir PCR (Not Detect) Influenza A (H1) PCR (Not Detect) Influ A (H1N1/09) PCR (Not Detect) Influenza A (H3) PCR (Not Detect) Influenza A Untype (PCR) (Not Detect) Influenza Type B (PCR) (Not Detect) Klebsiella oxytoca PCR Not Detected (Not Detect) Klebsiella pneumoniae Not Detected (Not Detect) List. monocytogenes PCR Not Detected (Not Detect) M.pneumoniae DNA (PCR) (Not Detect) N. meningitidis (PCR) Not Detected (Not Detect) Parainfluenza 1 (PCR) (Not Detect) Parainfluenza 2 (PCR) (Not Detect) Parainfluenza 3 (PCR) (Not Detect) Parainfluenza 4 (PCR) (Not Detect) Proteus species (PCR) Not Detected (Not Detect) RSV (PCR) (Not Detect) Entero/Rhino (PCR) (Not Detect) Serratia marcescens PCR Not Detected (Not Detect) Staphylococcus sp PCR Not Detected (Not Detect) Staph aureus (PCR) DETECTED A (Not Detect) mecA-Methicil Res Gene DETECTED A (Not Detect) Streptococcus sp PCR Not Detected (Not Detect) Group A Strep DNA Not Detected (Not Detect) Group B Strep (PCR) Not Detected (Not Detect) Strep pneumoniae (PCR) Not Detected (Not Detect) P. aeruginosa (PCR) Not Detected (Not Detect) Sil/B-Vanco Res Genes Not Detected (Not Detect) KPC (blaKPC) Detect PCR Not Detected (Not Detect) 12/13/17 Range/Units 09:00 Urine Color (Yellow) Urine Clarity (Clear) Urine pH (5.0-8.0) pH Units Ur Specific [place] (1.010-1.025) Urine Protein (Neg-Trace) mg/dL Urine Glucose (UA) (Normal) mg/dL Urine Ketones (Negative) mg/dL Urine Blood (Negative) Urine Nitrite (Negative) Urine Bilirubin (Negative) Urine Urobilinogen (Normal) mg/dL Ur Leukocyte Esterase (Negative) Urine Microscopic RBC (0-3) per hpf Urine Microscopic WBC (0-3) per hpf Ur Squamous Epith Cells (None-Few) per lpf Ur Transition Epith Cell (None-Few) per hpf Ur Renal Epithelial Cell (None-Few) per hpf Urine Bacteria (None-Few) per hpf Granular Casts (None Seen) per lpf Waxy Casts (None Seen) per lpf Ur Culture Indicated? (NO) Urine Total Volume 1.52 (0.60-1.60) Liters Urine Creatinine Pending Ur Creatinine 24 Hour Pending Ur Total Protein 24 Hr Pending Protein/Creatinin Ratio (0.00-0.20) mg/mg Urine Sodium Pending Ur Sodium 24 Hour Pending Urine Urea Nitrogen Pending Ur Urea Nitrogen 24 Hr Pending Urine Total Protein Pending Nasal Screen MRSA (PCR) (Negative) A. baumannii (PCR) (Not Detect) Chlamy pneumoniae PCR (Not Detect) Adenovirus (PCR) (Not Detect) B. pertussis DNA (PCR) (Not Detect) B.parapertussis DNA PCR (Not Detect) Kerry albicans (PCR) (Not Detect) C. glabrata (PCR) (Not Detect) C. krusei (PCR) (Not Detect) C. parapsilosis (PCR) (Not Detect) C. tropicalis (PCR) (Not Detect) Coronavirus OC43 (PCR) (Not Detect) Coronavirus HKU1 (PCR) (Not Detect) Coronavirus 229E (PCR) (Not Detect) Coronavirus NL63 (PCR) (Not Detect) Enterobacteriac sp PCR (Not Detect) E. cloacae complex PCR (Not Detect) Enterococcus sp PCR (Not Detect) E. coli (PCR) (Not Detect) H. influenzae (PCR) (Not Detect) Hep Bs Antigen (Nonreactive) Hep Bs Antibody mIU/mL Human Metapneumovir PCR (Not Detect) Influenza A (H1) PCR (Not Detect) Influ A (H1N1/09) PCR (Not Detect) Influenza A (H3) PCR (Not Detect) Influenza A Untype (PCR) (Not Detect) Influenza Type B (PCR) (Not Detect) Klebsiella oxytoca PCR (Not Detect) Klebsiella pneumoniae (Not Detect) List. monocytogenes PCR (Not Detect) M.pneumoniae DNA (PCR) (Not Detect) N. meningitidis (PCR) (Not Detect) Parainfluenza 1 (PCR) (Not Detect) Parainfluenza 2 (PCR) (Not Detect) Parainfluenza 3 (PCR) (Not Detect) Parainfluenza 4 (PCR) (Not Detect) Proteus species (PCR) (Not Detect) RSV (PCR) (Not Detect) Entero/Rhino (PCR) (Not Detect) Serratia marcescens PCR (Not Detect) Staphylococcus sp PCR (Not Detect) Staph aureus (PCR) (Not Detect) mecA-Methicil Res Gene (Not Detect) Streptococcus sp PCR (Not Detect) Group A Strep DNA (Not Detect) Group B Strep (PCR) (Not Detect) Strep pneumoniae (PCR) (Not Detect) P. aeruginosa (PCR) (Not Detect) Sil/B-Vanco Res Genes (Not Detect) KPC (blaKPC) Detect PCR (Not Detect) Exam - Constitutional Vitals: Temp Pulse Resp BP Pulse Ox 98.5 F 75 16 143/55 96 12/17/17 08:30 12/17/17 03:21 12/17/17 08:30 12/17/17 11:00 12/17/17 03:21 General appearance: cooperative, no acute distress, obese - Head Head exam: Present: atraumatic, normal inspection, normocephalic - Eye Eye exam: Present: EOMI, normal appearance, PERRL Pupils: Present: normal accommodation Additional comments: No subconjunctival hemorrhage noted. - ENT ENT exam: Present: mucous membranes moist - Neck Neck exam: Present: normal inspection - Respiratory Respiratory exam: Present: CTAB. Absent: rales, respiratory distress, rhonchi, wheezes - Cardiovascular Cardiovascular exam: Present: RRR, +S1, +S2 - GI/Abdominal GI/Abdominal exam: Present: distended (Obese), normal bowel sounds, soft. Absent: tenderness - Extremities Exam Extremities exam: Present: normal inspection. Absent: joint swelling, pedal edema, tenderness - Neurological Exam Neurological exam: Present: alert, oriented X3, no focal deficits - Psychiatric Psychiatric exam: Present: normal affect, normal mood - Skin Skin exam: Present: dry, intact, normal color, warm Additional comments: No endocarditis stigmata noted. - Additional findings Additional findings: Permacath noted to the right upper chest with transparent dressing clean, dry, and intact, currently accessed for HD. No surrounding erythema, warmth, or drainage from the insertion site. Tenderness appears to have resolved. Consult Discharge Plan - Plan Referrals: Jay Valenzuela DO [Primary Care Provider] - - Attending Attestation I examined this patient and my medical decision-making was reviewed with the R tabithat Physician. I agree with the documented findings, disposition and treatment plan as described except to the extent set forth below.
[2017-12-17] MEDS: cloNIDine HCl 0.1 MG TABLET PO SCH ×3 (11:37→20:58)
[2017-12-17] MEDS: Insulin LISPRO 300 UNITS/3 ML VIAL SQ SCH ×5 (11:37→20:59)
--- NOTE | 2017-12-17 11:45 | Internal Med Progress Note ---
Hospitalist Progress Note - Encounter Date of Encounter: 12/17/17 Time of Encounter: 11:38 - Subjective Interval History: Patient seen and examined this morning during dialysis. Feeling better. No fever, chills, N/V/D. Denies sob, chest pain or abdominal pain. Leg swelling improved. - Exam Vitals: Temp Pulse Resp BP Pulse Ox 98.5 F 75 16 143/55 96 12/17/17 08:30 12/17/17 03:21 12/17/17 08:30 12/17/17 11:00 12/17/17 03:21 Exam: Constitutional: Vitals as noted. In no Distress. Morbid obesity Eyes : Sclera white, conjunctiva clear, no lid lag, PEARLA. ENT : Grossly normal hearing. Oropharyngeal exam unremarkable. No JVD. no cervical lymphadenopathy. no thyromegaly or mass. Respiratory: Clear to auscultation bilaterally. No accessory muscle use, rales, rhonchi or wheezes Cardiovascular : RRR, +S1, +S2. no murmur, gallop, rubs. No chest wall tenderness, pulses palpable and symmetrical in UE/LE. 2+ edema, no cyanosis. no calf tenderness. Leg swelling improved. GI/Abdominal : Soft, Obese, Non-tender, Non-distended, normal bowel sounds, no peritoneal signs. no orgenomegaly, hernia or mass appreciated. Musculoskeletal: no deformity noted. Neurological: AO X2, CN II-XII grossly intact, motor and sensory exam Skin: DTI noted on sacral region. No open wound present. No skin rash noted. Permacath on RT chest. Pych: AOx3. In good mood. - Assessment and Plan (1) Sepsis Current Visit: Yes Status: Acute (2) Proteinuria Current Visit: Yes Status: Acute (3) Hypomagnesemia Current Visit: Yes Status: Acute (4) Diabetes mellitus Current Visit: No Status: Chronic (5) Morbid obesity Current Visit: No Status: Chronic (6) HUSAM (obstructive sleep apnea) Current Visit: No Status: Chronic (7) Hypokalemia Current Visit: No Status: Resolved (8) Elevated troponin I level Current Visit: No Status: Acute (9) Swelling of lower extremity Current Visit: Yes Status: Acute (10) CAD (coronary artery disease) Status: Acute (11) HTN (hypertension) Current Visit: No Status: Acute (12) COPD (chronic obstructive pulmonary disease) Current Visit: Yes Status: Acute - Summary of Assessment and Plan Summary of Assessment and Plan: Sepsis with bactermia - Patient's repeat sirs criteria of leukocytosis, fever, tachypnea - Dialysis catheter probable source. To be romoved today. Plan for temp catheter tomorrow. Had HD today. - CT negative for pneumonia - Negative MRSA screen, urine strep pneumo and legionella antigen testing, respiratory panel. - blood cultures Positive from 12/15 for MRSA. BG repeated today - f/u TTE. will need DALE if negative - c/w vancomycin. - ID following HTN - Currently stable - Will resume only coreg and clonidine to prevent rebound HTN, given sepsis. - Monitor closely - Hold Lasix, metolazone - Will resume hydralazine if BP not controlled. Hypomagnesemia/Hypokalemia - now resolved - Managed with HD. Diabetes mellitus - Insulin sliding scales and Accu-Cheks HUSAM - Continue CPAP at night and when sleeping Elevated troponin I level with h/o CAD - Likely from demand ischemia and CKD - f/u TTE per Cardiology Swelling of lower extremity - US negative for DVT - Likely related to fluid overload CAD - c/w home coreg, aspirin, plavix ,statin and ranolazine - Denies chest pain. Elevated troponin likely from sepsis and CKD. h/o COPD - Well controlled - Continue home Symbicort, spiriva and as needed albuterol - Time Spent with Patient Total time spent is greater than 50% in coordination of care (as documented) at patient's floor/unit and/or counseling patient: Internal Medicine: Result - Labs CBC & Chem 7: 12/17/17 04:12 12/17/17 04:12 Labs: Short CBC 12/17/17 Range/Units 04:12 WBC 10.9 (4.3-11.1) K/mcL Hgb 8.8 L (11.5-15.4) g/dL Hct 27.9 L (35.3-44.9) % Plt Count 139 L (140-400) K/mcL Neutrophils # 9.2 H (1.6-8.9) K/mcL BMP 12/17/17 04:12 Sodium 134 L Potassium 3.5 Chloride 98 Carbon Dioxide 25 BUN 26 H Creatinine 4.16 H Glucose 110 H Calcium 8.3 L - ABG Interpretation ABG results: PT/INR, D-dimer PT 14.2 Seconds (9.4-12.1) H 12/15/17 07:27 Consult Discharge Plan - Plan Referrals: Jay Valenzuela DO [Primary Care Provider] - (1) Sepsis Qualifiers: Qualified Code(s): A41.9 - Sepsis, unspecified organism (2) Proteinuria Qualifiers: Qualified Code(s): R80.9 - Proteinuria, unspecified (4) Diabetes mellitus Qualifiers: Qualified Code(s): E11.22 - Type 2 diabetes mellitus with diabetic chronic kidney disease; N18.4 - Chronic kidney disease, stage 4 (severe); Z79.4 - long-term (current) use of insulin (10) CAD (coronary artery disease) Qualifiers: Qualified Code(s): I25.10 - Atherosclerotic heart disease of circle coronary artery without angina pectoris (11) HTN (hypertension) Qualifiers: Qualified Code(s): I10 - Essential (primary) hypertension (12) COPD (chronic obstructive pulmonary disease) Qualifiers: Qualified Code(s): J44.9 - Chronic obstructive pulmonary disease, unspecified
[2017-12-17 12:05] LABS: Sodium, Urine 60.9 mEq/L
[2017-12-17] MEDS ORDERED: Vancomycin 500 MG in 0.9 % Sodium Chloride Mini Bag 100 ML IVPB ONE (13:00)
[2017-12-17] MEDS: risperiDONE 1 MG TABLET PO SCH (13:03)
[2017-12-17] MEDS: Ranolazine 500 MG TAB.ER.12H PO SCH ×2 (13:03→20:57)
[2017-12-17] MEDS: Famotidine 20 MG TABLET PO SCH (13:03)
--- NOTE | 2017-12-17 15:30 | Event Note ---
Date of Encounter: 12/17/17 Time of Encounter: 15:20 - Cardiology Event Note Seen and examined. No events overnight. Discussed results of TTE with patient. TTE (see below) shows preserved LVEF with normal wall motion. No evidence of endocarditis on surface echo. No further inpatient recommendations from Cardiology. Recommend close outpatient follow-up with primary [employer] in [place], [place]. Continue current CV meds. Will defer recommendations of DALE to ID. Cardiology will sign-off. Discussed and reviewed with Dr. Falcon. Impressions Echocardiogram 12/17/17 14:01 Impressions: LVEF 60%. Indeterminate diastolic function. Normal right ventricular structure and function. Mild mitral regurgitation. Mild-moderate tricuspid regurgitation. No pulmonary hypertension. No echo evidence of endocarditis. Left Ventricular Wall Motion: Rest Echo Findings All wall segments showed normal motion. Findings: Study Quality * Technically adequate exam. ECG Findings * Normal sinus rhythm. Left Ventricle * LVEF 60%. * Normal LV chamber size, wall thickness and function. * Indeterminate diastolic function. Right Ventricle * Normal right ventricular structure and function. Left Atrium * Moderately dilated left atrium. Right Atrium * Normal right atrial size. Mitral Valve * Normal mitral valve structure. * No mitral stenosis. * Mild mitral regurgitation. Aortic Valve * No aortic regurgitation. * Trileaflet aortic valve. * No aortic stenosis. Tricuspid Valve * Normal tricuspid valve structure. * Mild-moderate tricuspid regurgitation. * Estimated RA pressure is 3 mmHg. * Estimated RVSP is 33 mmHg. * No pulmonary hypertension. Pulmonic Valve * Pulmonic valve is not well visualized. * No pulmonic stenosis. * No pulmonic regurgitation. Pulmonary Artery * Pulmonary artery not well visualized. Aorta * Normally sized aortic root. Pericardium * There is no pericardial effusion present. Interatrial Septum * No evidence of PFO by color Doppler. IVC * The IVC is not dilated.
--- NOTE | 2017-12-17 16:09 | IR Procedure Note ---
Date of procedure: 12/17/17 Consent Obtained: Verbal consent, Written consent Timeout: Correct patient and procedure verified, Correct site verified, Time out performed, Skin prep completed Local anesthetic: Lidocaine 1% Indications: no longer needed Procedure Performed: permcath removal Was there an respiratory therapy assistant present: No Estimated blood loss (cc): 1 Complications: None; Tolerated procedure well Specimen: none
--- NOTE | 2017-12-18 07:25 | Nephrology Progress Note ---
Date of Encounter: 12/18/17 Time of Encounter: 10:25 - Assessment and Plan (1) TAMEKA (acute kidney injury) Current Visit: No Status: Acute Hx of dialysis-dependent TAMEKA (she has not previously been declared ESRD, but was getting thrice weekly HD). Then was found septic and needed the Permacath removed just yesterday after HD. I recommend resuming her diuretics (loop and metolazone) and adding KCl to help her maintain her volume status through the weekend and then if needed to have the Permacath placed on Thursday. I spent approximately 35 minutes in evaluation and management/medical decision making, in addition to [id number] time with the patient and her daughter for a family meeting. We described the plans to go with the line-free holiday this and perhaps more dialysis on Thursday may be needed (or sooner if medically necessary). I also described with the Infection disease team this plan. Continue to follow a renal protective stratey: avoid nephrotoxins and renal dosing, strict I/Os, daily weights, appropriate diet. Thank you. (2) Acute and chronic respiratory failure with hypercapnia Current Visit: No Status: Acute (3) Hypokalemia Current Visit: Yes Status: Acute (4) Elevated troponin Current Visit: Yes Status: Acute (5) Bacteremia Current Visit: Yes Status: Acute see above Subjective Principal diagnosis: fever/lethargic Interval history: The patient was seen and examined. She was sitting in her bedside chair on the 2A unit, and her adult daughter was present. The patient reported having dialysis yesterday, without any issues. She described having the dialysis catheter removed yesterday as well, and denied bleeding. She did not report nausea, vomiting, fevers, chills, or other symptoms that could be consistent with uremia. Objective - Vital Signs Vital signs: Vital Signs Temp Pulse Resp BP Pulse Ox 12/18/17 06:51 99 F 71 20 149/54 98 12/18/17 04:34 98.7 F 64 14 146/69 98 12/17/17 23:57 98.8 F 65 17 151/69 97 12/17/17 23:00 18 97 12/17/17 19:37 98.7 F 69 16 146/67 98 12/17/17 17:40 99.5 F 72 20 152/68 96 12/17/17 12:18 97.9 F 70 20 149/79 96 12/17/17 11:51 98.1 F 18 164/58 12/17/17 11:30 153/62 12/17/17 11:15 156/62 12/17/17 11:00 143/55 12/17/17 10:45 153/60 12/17/17 10:30 106/43 12/17/17 10:15 146/60 12/17/17 10:00 149/56 12/17/17 09:45 169/62 12/17/17 09:30 153/59 12/17/17 09:15 167/57 12/17/17 09:00 166/57 12/17/17 08:45 163/58 12/17/17 08:30 98.5 F 16 161/58 12/17/17 07:38 18 95 Intake and Output 12/17/17 12/17/17 12/18/17 15:59 23:59 07:59 Intake Total 840 / 840 Output Total 2600 / 2600 450 / 450 Balance -1760 / -1760 -450 / -450 Intake: Oral 240 / 240 Intake, Rinseback and Flushes 600 / 600 Output: Urine 0 / 0 Total Dialysis (HD) Output 2600 / 2600 Catheter 450 / 450 Other: Meal Breakfast Percent of Meal Consumed 100% Weight 115.3 kg Blood Glucose* 116 187 118 Hemodialysis Net Fluid Removed 2000 (mL) - General Appearance General appearance: Present: well-developed, well-nourished, appears started age, obese EENT: Present: ATNC, PERRL, mucous membranes moist Neck: Present: supple Respiratory: Present: clear Cardiology: Present: edema (Trace ankle edema, bilaterally), regular rate, regular rhythm, normal S1, normal S2 Gastrointestinal: Present: normoactive bowel sounds, no tenderness, no guarding, obese Integumentary: Present: no rash, warm and dry Neurologic: Present: no focal deficit, no asterixis, alert and oriented x3 Musculoskeletal: Present: no deformities, no erythema, no cyanosis Psychiatric: Present: mood/affect appropriate, cooperative - Lab 12/18/17 10:15 12/18/17 10:15 Most recent lab results Calcium 8.3 mg/dL (8.6-10.3) L 12/17/17 04:12 Phosphorus 2.4 mg/dL (2.7-4.5) L 12/15/17 07:27 Magnesium 1.3 mg/dL (1.6-2.6) L 12/15/17 07:27 Urine Creatinine 146 mg/dL 12/15/17 08:07 Ur Total Protein 24 Hr 3207 mg/day (50-80) H 12/13/17 09:00 Urine Sodium 60.9 mEq/L 12/13/17 09:00 Urine Total Protein 1218 mg/dL (1-14) H 12/15/17 08:07 Consult Discharge Plan - Plan Referrals: Jay Valenzuela DO [Primary Care Provider] -
[2017-12-18] MEDS: *HR* Heparin 5,000 UNIT/ML VIAL SQ SCH ×4 (07:47→23:24)
[2017-12-18] MEDS: Insulin LISPRO 300 UNITS/3 ML VIAL SQ SCH ×4 (07:48→20:39)
[2017-12-18] MEDS ORDERED: *HR* Midazolam HCl 5 MG/5 ML VIAL IVP ONE (08:23)
[2017-12-18] MEDS ORDERED: *HR* FentaNYL (PF) 250 MCG/5 ML VIAL ONE (08:23)
[2017-12-18] MEDS ORDERED: 0.9 % Sodium Chloride 500 ML ONE (08:50)
[2017-12-18] MEDS ORDERED: Famotidine 20 MG TABLET PO SCH (09:00)
[2017-12-18] MEDS: Ranolazine 500 MG TAB.ER.12H PO SCH ×2 (10:22→20:19)
[2017-12-18] MEDS: cloNIDine HCl 0.1 MG TABLET PO SCH ×3 (10:23→20:19)
[2017-12-18] MEDS: risperiDONE 1 MG TABLET PO SCH (10:23)
[2017-12-18 10:42] LABS: Basophils % 0.5 %; Eosinophils # 0.2 K/mcL (0.0-0.6); Eosinophils % 2.9 %; Hematocrit 31.8 % (35.3-44.9); Hemoglobin 9.9 g/dL (11.5-15.4); Immature Granulocytes % 0.5 % (0-4); Lymphocytes # 0.8 K/mcL (0.6-4.6); Lymphocytes % 9.7 %; Mean Corpuscular HGB Conc 31.1 g/dL (31.6-35.5); Mean Corpuscular Hemoglobin 26.5 pg (28.0-33.3); Mean Corpuscular Volume 85.3 fL (83.0-100.0); Mean Platelet Volume 9.8 fL (9.4-12.4); Monocytes # 0.7 K/mcL (0.0-1.3); Monocytes % 8.4 %; Neutrophils # 6.1 K/mcL (1.6-8.9); Platelet Count 144 K/mcL (140-400); Red Blood Count 3.73 M/mcL (3.82-4.97); Red Cell Distribution Width 16.2 % (11.5-14.5)
[2017-12-18] MEDS: Budesonide/Formoterol 160/4.5 1 PUFF INH IH SCH ×2 (10:45→22:33)
[2017-12-18] MEDS: Tiotropium 18 MCG inhalation IH SCH (10:47)
[2017-12-18 10:54] LABS: Calcium 8.8 mg/dL (8.6-10.3); Potassium 3.7 mEq/L (3.5-5.1)
--- NOTE | 2017-12-18 11:48 | Internal Med Progress Note ---
Hospitalist Progress Note - Encounter Date of Encounter: 12/18/17 Time of Encounter: 09:46 - Subjective Interval History: Patient seen and examined this morning during dialysis. Feeling better. No fever, chills, N/V/D. Denies sob, chest pain or abdominal pain. Leg swelling improved. - Exam Vitals: Temp Pulse Resp BP Pulse Ox 97.8 F 62 20 142/58 100 12/18/17 11:16 12/18/17 11:16 12/18/17 11:16 12/18/17 11:16 12/18/17 11:16 Exam: Constitutional: Vitals as noted. In no Distress. Morbid obesity ENT : Grossly normal hearing. Oropharyngeal exam unremarkable. No JVD. no cervical lymphadenopathy. no thyromegaly or mass. Respiratory: Clear to auscultation bilaterally. No accessory muscle use, rales, rhonchi or wheezes Cardiovascular : RRR, +S1, +S2. no murmur, gallop, rubs. No chest wall tenderness, pulses palpable and symmetrical in UE/LE. 1+ edema, no cyanosis. no calf tenderness. Leg swelling improved. GI/Abdominal : Soft, Obese, Non-tender, Non-distended, normal bowel sounds, no peritoneal signs. no orgenomegaly, hernia or mass appreciated. Musculoskeletal: no deformity noted. Neurological: AO X2, CN II-XII grossly intact, motor and sensory exam Skin: No open wound present. No skin rash noted. Pych: AOx3. - Assessment and Plan (1) Sepsis Current Visit: Yes Status: Acute (2) Proteinuria Current Visit: Yes Status: Acute (3) Hypomagnesemia Current Visit: Yes Status: Acute (4) Diabetes mellitus Current Visit: No Status: Chronic (5) Morbid obesity Current Visit: No Status: Chronic (6) HUSAM (obstructive sleep apnea) Current Visit: No Status: Chronic (7) Hypokalemia Current Visit: No Status: Resolved (8) Elevated troponin I level Current Visit: No Status: Acute (9) Swelling of lower extremity Current Visit: Yes Status: Acute (10) CAD (coronary artery disease) Status: Acute (11) HTN (hypertension) Current Visit: No Status: Acute (12) COPD (chronic obstructive pulmonary disease) Current Visit: Yes Status: Acute - Summary of Assessment and Plan Summary of Assessment and Plan: Sepsis with bacteremia - Initially with leukocytosis, fever, tachypnea - Dialysis catheter probable source. Permacath removed. Plan for permacath placement on thursday. - CT negative for pneumonia - Negative MRSA screen, urine strep pneumo and legionella antigen testing, respiratory panel. - blood cultures Positive from 12/15 for MRSA. BG 12/17 postive for GPC. Repeat cultures today. - Had DALE today. f/u report - c/w vancomycin. Pharmacy to dose - ID following HTN - Currently stable - Will resume only coreg and clonidine to prevent rebound HTN, given sepsis. - Monitor closely - Will resume Lasix and metolazone per Nephro. - Will resume hydralazine if BP not controlled. Hypomagnesemia/Hypokalemia - now resolved - Managed with HD. Diabetes mellitus - well controlled - Insulin sliding scales and Accu-Cheks HUSAM - Continue CPAP at night and when sleeping Elevated troponin I level with h/o CAD - Likely from demand ischemia and CKD - TTE with Ef 60, intemediate diastolic dysfunction, No WMA, Swelling of lower extremity - US negative for DVT - Likely related to fluid overload - improved with ultrafiltration CAD - c/w home coreg, aspirin, plavix ,statin and ranolazine - Denies chest pain. Elevated troponin likely from sepsis and CKD. h/o COPD - Well controlled - Continue home Symbicort, spiriva and as needed albuterol - Time Spent with Patient Total time spent is greater than 50% in coordination of care (as documented) at patient's floor/unit and/or counseling patient: Internal Medicine: Result - Labs CBC & Chem 7: 12/18/17 10:15 12/18/17 10:15 Labs: Short CBC 12/18/17 Range/Units 10:15 WBC 7.9 (4.3-11.1) K/mcL Hgb 9.9 L (11.5-15.4) g/dL Hct 31.8 L (35.3-44.9) % Plt Count 144 (140-400) K/mcL Neutrophils # 6.1 (1.6-8.9) K/mcL BMP 12/18/17 10:15 Sodium 133 L Potassium 3.7 Chloride 94 L Carbon Dioxide 30 H BUN 16 Creatinine 3.44 H Glucose 130 H Calcium 8.8 - ABG Interpretation ABG results: PT/INR, D-dimer PT 14.2 Seconds (9.4-12.1) H 12/15/17 07:27 - Impressions Impressions Tunnelled Catheter Removal 12/17/17 00:00 IMPRESSION: Successful removal of a tunneled dialysis catheter. D/ / Dani Kitchen MD / Dani Kitchen MD Interpreting Provider: Dani Kitchen MD Echocardiogram 12/17/17 14:01 Impressions: LVEF 60%. Indeterminate diastolic function. Normal right ventricular structure and function. Mild mitral regurgitation. Mild-moderate tricuspid regurgitation. No pulmonary hypertension. No echo evidence of endocarditis. Left Ventricular Wall Motion: Rest Echo Findings All wall segments showed normal motion. Findings: Study Quality * Technically adequate exam. ECG Findings * Normal sinus rhythm. Left Ventricle * LVEF 60%. * Normal LV chamber size, wall thickness and function. * Indeterminate diastolic function. Right Ventricle * Normal right ventricular structure and function. Left Atrium * Moderately dilated left atrium. Right Atrium * Normal right atrial size. Mitral Valve * Normal mitral valve structure. * No mitral stenosis. * Mild mitral regurgitation. Aortic Valve * No aortic regurgitation. * Trileaflet aortic valve. * No aortic stenosis. Tricuspid Valve * Normal tricuspid valve structure. * Mild-moderate tricuspid regurgitation. * Estimated RA pressure is 3 mmHg. * Estimated RVSP is 33 mmHg. * No pulmonary hypertension. Pulmonic Valve * Pulmonic valve is not well visualized. * No pulmonic stenosis. * No pulmonic regurgitation. Pulmonary Artery * Pulmonary artery not well visualized. Aorta * Normally sized aortic root. Pericardium * There is no pericardial effusion present. Interatrial Septum * No evidence of PFO by color Doppler. IVC * The IVC is not dilated. 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 use: with rat exterminator use Diabetes mellitus complication status: with kidney complications Diabetes mellitus complication detail: with chronic kidney disease Chronic kidney disease stage: stage 4 (severe) Qualified Code(s): E11.22 - Type 2 diabetes mellitus with diabetic chronic kidney disease; N18.4 - Chronic kidney disease, stage 4 (severe); Z79.4 - superintendent container terminal (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
--- NOTE | 2017-12-18 12:07 | Infectious Disease Progress No ---
Date of Encounter: 12/18/17 Time of Encounter: 11:53 - Assessment and Plan (1) Sepsis Current Visit: Yes Status: Acute The patient had four SIRS criteria on admission. Likely secondary to bacteremia. Improved. Fever curve improved. WBC normal. Tachycardia and tachypnea have resolved. Blood cultures drawn 12/15/17 (peripherally) are positive 2/2 sets. Repeat blood cultures drawn 12/17/17 x 2 sets peripherally and x 2 sets from her Perma-cath are pending. Recommendations: Await repeat blood cultures. Avoid re-insertion of Perma-cath until Thursday, if possible. Repeat blood cultures x 2 sets. Continue Vancomycin IV. Pharmacy to dose. Goal trough ~15. Duration of treatment depends on the clinical picture. If DALE negative, will plan on 14 days from the first set of negative blood cultures. We should be able to give IV antibiotics with HD. Will discuss with nephrology. Monitor labs and for drug toxicity and dose-adjust antibiotics. Qualifiers: Qualified Code(s): A41.9 - Sepsis, unspecified organism (2) Bacteremia Current Visit: Yes Status: Acute Causative organism: MRSA. Source: Unclear, but concern for Perma-cath as the source. Blood cultures drawn 12/15/17 from a peripheral stick are positive 2/2 sets. Repeat peripheral blood cultures x 2 sets and central cultures x 2 sets drawn 12/18/17 are pending. The patient has one major and one modified Modified Barron's Criteria. Perma-cath removed 12/17/17. Catheter tip culture pending. TTE negative for vegetations. DALE completed this morning. Results pending. Antibiotic recommendations as above. (3) Elevated troponin I level Current Visit: No Status: Acute Cardiology consulted. 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 Dose-adjust antibiotics based on HD status. - Subjective Interval history: Patient seen and examined. No acute events noted overnight. Patient states overall she feels well today. Status post DALE this morning. Denies any fevers or chills or rigors. Denies chest pain, shortness of breath, or cough. Denies nausea, vomiting, diarrhea, or constipation. She denies any abdominal pain or urinary complaints. Hwang catheter remains patent. She denies any oral thrush or any skin lesions. Status post Perma-cath removal 12/17/17. Infect Dis PN-Objective Data - Labs CBC & Chem 7: 12/18/17 10:15 12/18/17 10:15 Labs: Laboratory Results - last 24 hr 12/13/17 12/16/17 12/17/17 09:00 17:24 11:05 WBC RBC Hgb Hct MCV MCH MCHC RDW Plt Count MPV Immature Gran % Seg Neutrophils % Lymphocytes % Monocytes % Eosinophils % Basophils % Neutrophils # Lymphocytes # Monocytes # Eosinophils # Basophils # Sodium Potassium Chloride Carbon Dioxide BUN Creatinine Est GFR ( Amer) Est GFR (Non-Af Amer) BUN/Creatinine Ratio Glucose POC Glucose 119 H 116 H Calculated Osmolality Calcium Urine Creatinine 29 Ur Creatinine 24 Hour 441 L Ur Total Protein 24 Hr 3207 H Urine Sodium 60.9 Ur Sodium 24 Hour 93 Urine Urea Nitrogen 63 Ur Urea Nitrogen 24 Hr 1 L Urine Total Protein 211 H Rheumatoid Factor 12/17/17 12/17/17 12/18/17 17:22 19:32 10:15 WBC RBC Hgb Hct MCV MCH MCHC RDW Plt Count MPV Immature Gran % Seg Neutrophils % Lymphocytes % Monocytes % Eosinophils % Basophils % Neutrophils # Lymphocytes # Monocytes # Eosinophils # Basophils # Sodium Potassium Chloride Carbon Dioxide BUN Creatinine Est GFR ( Amer) Est GFR (Non-Af Amer) BUN/Creatinine Ratio Glucose POC Glucose 167 H 187 H Calculated Osmolality Calcium Urine Creatinine Ur Creatinine 24 Hour Ur Total Protein 24 Hr Urine Sodium Ur Sodium 24 Hour Urine Urea Nitrogen Ur Urea Nitrogen 24 Hr Urine Total Protein Rheumatoid Factor < 10 12/18/17 12/18/17 10:15 10:15 WBC 7.9 RBC 3.73 L Hgb 9.9 L Hct 31.8 L MCV 85.3 MCH 26.5 L MCHC 31.1 L RDW 16.2 H Plt Count 144 MPV 9.8 Immature Gran % 0.5 Seg Neutrophils % 78.0 Lymphocytes % 9.7 Monocytes % 8.4 Eosinophils % 2.9 Basophils % 0.5 Neutrophils # 6.1 Lymphocytes # 0.8 Monocytes # 0.7 Eosinophils # 0.2 Basophils # 0.0 Sodium 133 L Potassium 3.7 Chloride 94 L Carbon Dioxide 30 H BUN 16 Creatinine 3.44 H Est GFR ( Amer) 16 L Est GFR (Non-Af Amer) 13 L BUN/Creatinine Ratio 5 L Glucose 130 H POC Glucose Calculated Osmolality 279 L Calcium 8.8 Urine Creatinine Ur Creatinine 24 Hour Ur Total Protein 24 Hr Urine Sodium Ur Sodium 24 Hour Urine Urea Nitrogen Ur Urea Nitrogen 24 Hr Urine Total Protein Rheumatoid Factor Cultures: Cultures 12/17/17 09:25 Blood Culture - Preliminary Central Venous Catheter Gram Positive Cocci 12/17/17 09:15 Blood Culture - Preliminary Peripheral Venipuncture Gram Positive Cocci 12/15/17 07:55 Blood Culture - Final Peripheral Venipuncture Methicillin Resistant S.aureus 12/15/17 08:01 Blood Culture - Final Peripheral Venipuncture Methicillin Resistant S.aureus 12/16/17 11:02 Urine Culture - Final Urine,Clean Catch No growth. 12/17/17 09:17 Blood Culture - Preliminary Peripheral Venipuncture Culture is incubating and being continuously m onitored for growth. Final report to follow. 12/17/17 09:20 Blood Culture - Preliminary Central Venous Catheter Culture is incubating and being continuously monitored for growth. Final report to follow. 12/15/17 08:07 Legionella Antigen - Final Urine,Clean Catch Streptococcus pneumoniae Antigen (M - Final Serology 12/15/17 12/15/17 12/15/17 Range/Units 12:30 12:30 10:02 Urine Color (Yellow) Urine Clarity (Clear) Urine pH (5.0-8.0) pH Units Ur Specific [place] (1.010-1.025) Urine Protein (Neg-Trace) mg/dL Urine Glucose (UA) (Normal) mg/dL Urine Ketones (Negative) mg/dL Urine Blood (Negative) Urine Nitrite (Negative) Urine Bilirubin (Negative) Urine Urobilinogen (Normal) mg/dL Ur Leukocyte Esterase (Negative) Urine Microscopic RBC (0-3) per hpf Urine Microscopic WBC (0-3) per hpf Ur Squamous Epith Cells (None-Few) per lpf Ur Transition Epith Cell (None-Few) per hpf Ur Renal Epithelial Cell (None-Few) per hpf Urine Bacteria (None-Few) per hpf Granular Casts (None Seen) per lpf Waxy Casts (None Seen) per lpf Ur Culture Indicated? (NO) Urine Total Volume (0.60-1.60) Liters Urine Creatinine mg/dL Ur Creatinine 24 Hour (600-1800) mg/day Ur Total Protein 24 Hr (50-80) mg/day Protein/Creatinin Ratio (0.00-0.20) mg/mg Urine Sodium mEq/L Ur Sodium 24 Hour (40-220) mEq/day Urine Urea Nitrogen mg/dL Ur Urea Nitrogen 24 Hr (12-20) g/day Urine Total Protein (1-14) mg/dL Nasal Screen MRSA (PCR) Negative (Negative) A. baumannii (PCR) (Not Detect) Chlamy pneumoniae PCR Not Detected (Not Detect) Adenovirus (PCR) Not Detected (Not Detect) B. pertussis DNA (PCR) Not Detected (Not Detect) B.parapertussis DNA PCR Not Detected (Not Detect) Kerry albicans (PCR) (Not Detect) C. glabrata (PCR) (Not Detect) C. krusei (PCR) (Not Detect) C. parapsilosis (PCR) (Not Detect) C. tropicalis (PCR) (Not Detect) Coronavirus OC43 (PCR) Not Detected (Not Detect) Coronavirus HKU1 (PCR) Not Detected (Not Detect) Coronavirus 229E (PCR) Not Detected (Not Detect) Coronavirus NL63 (PCR) Not Detected (Not Detect) Enterobacteriac sp PCR (Not Detect) E. cloacae complex PCR (Not Detect) Enterococcus sp PCR (Not Detect) E. coli (PCR) (Not Detect) H. influenzae (PCR) (Not Detect) Hep Bs Antigen Nonreactive (Nonreactive) Hep Bs Antibody 0.00 mIU/mL Human Metapneumovir PCR Not Detected (Not Detect) Influenza A (H1) PCR Not Detected (Not Detect) Influ A (H1N1/09) PCR Not Detected (Not Detect) Influenza A (H3) PCR Not Detected (Not Detect) Influenza A Untype (PCR) Not Detected (Not Detect) Influenza Type B (PCR) Not Detected (Not Detect) Klebsiella oxytoca PCR (Not Detect) Klebsiella pneumoniae (Not Detect) List. monocytogenes PCR (Not Detect) M.pneumoniae DNA (PCR) Not Detected (Not Detect) N. meningitidis (PCR) (Not Detect) Parainfluenza 1 (PCR) Not Detected (Not Detect) Parainfluenza 2 (PCR) Not Detected (Not Detect) Parainfluenza 3 (PCR) Not Detected (Not Detect) Parainfluenza 4 (PCR) Not Detected (Not Detect) Proteus species (PCR) (Not Detect) RSV (PCR) Not Detected (Not Detect) Entero/Rhino (PCR) Not Detected (Not Detect) Serratia marcescens PCR (Not Detect) Staphylococcus sp PCR (Not Detect) Staph aureus (PCR) (Not Detect) mecA-Methicil Res Gene (Not Detect) Streptococcus sp PCR (Not Detect) Group A Strep DNA (Not Detect) Group B Strep (PCR) (Not Detect) Strep pneumoniae (PCR) (Not Detect) P. aeruginosa (PCR) (Not Detect) Sil/B-Vanco Res Genes (Not Detect) KPC (blaKPC) Detect PCR (Not Detect) 12/15/17 12/15/17 12/15/17 Range/Units 08:07 08:07 08:01 Urine Color Dark Yellow (Yellow) Urine Clarity Turbid A (Clear) Urine pH 5.0 (5.0-8.0) pH Units Ur Specific [place] 1.022 (1.010-1.025) Urine Protein >=1000 H (Neg-Trace) mg/dL Urine Glucose (UA) 250 H (Normal) mg/dL Urine Ketones Trace H (Negative) mg/dL Urine Blood Negative (Negative) Urine Nitrite Negative (Negative) Urine Bilirubin Small H (Negative) Urine Urobilinogen Normal (Normal) mg/dL Ur Leukocyte Esterase Moderate H (Negative) Urine Microscopic RBC 0-3 (0-3) per hpf Urine Microscopic WBC TNTC H (0-3) per hpf Ur Squamous Epith Cells Many H (None-Few) per lpf Ur Transition Epith Cell Few (None-Few) per hpf Ur Renal Epithelial Cell Few (None-Few) per hpf Urine Bacteria None Seen (None-Few) per hpf Granular Casts Moderate H (None Seen) per lpf Waxy Casts Few H (None Seen) per lpf Ur Culture Indicated? NO. A (NO) Urine Total Volume (0.60-1.60) Liters Urine Creatinine 146 mg/dL Ur Creatinine 24 Hour (600-1800) mg/day Ur Total Protein 24 Hr (50-80) mg/day Protein/Creatinin Ratio 8.34 H (0.00-0.20) mg/mg Urine Sodium mEq/L Ur Sodium 24 Hour (40-220) mEq/day Urine Urea Nitrogen mg/dL Ur Urea Nitrogen 24 Hr (12-20) g/day Urine Total Protein 1218 H (1-14) mg/dL Nasal Screen MRSA (PCR) (Negative) A. baumannii (PCR) Not Detected (Not Detect) Chlamy pneumoniae PCR (Not Detect) Adenovirus (PCR) (Not Detect) B. pertussis DNA (PCR) (Not Detect) B.parapertussis DNA PCR (Not Detect) Kerry albicans (PCR) Not Detected (Not Detect) C. glabrata (PCR) Not Detected (Not Detect) C. krusei (PCR) Not Detected (Not Detect) C. parapsilosis (PCR) Not Detected (Not Detect) C. tropicalis (PCR) Not Detected (Not Detect) Coronavirus OC43 (PCR) (Not Detect) Coronavirus HKU1 (PCR) (Not Detect) Coronavirus 229E (PCR) (Not Detect) Coronavirus NL63 (PCR) (Not Detect) Enterobacteriac sp PCR Not Detected (Not Detect) E. cloacae complex PCR Not Detected (Not Detect) Enterococcus sp PCR Not Detected (Not Detect) E. coli (PCR) Not Detected (Not Detect) H. influenzae (PCR) Not Detected (Not Detect) Hep Bs Antigen (Nonreactive) Hep Bs Antibody mIU/mL Human Metapneumovir PCR (Not Detect) Influenza A (H1) PCR (Not Detect) Influ A (H1N1/09) PCR (Not Detect) Influenza A (H3) PCR (Not Detect) Influenza A Untype (PCR) (Not Detect) Influenza Type B (PCR) (Not Detect) Klebsiella oxytoca PCR Not Detected (Not Detect) Klebsiella pneumoniae Not Detected (Not Detect) List. monocytogenes PCR Not Detected (Not Detect) M.pneumoniae DNA (PCR) (Not Detect) N. meningitidis (PCR) Not Detected (Not Detect) Parainfluenza 1 (PCR) (Not Detect) Parainfluenza 2 (PCR) (Not Detect) Parainfluenza 3 (PCR) (Not Detect) Parainfluenza 4 (PCR) (Not Detect) Proteus species (PCR) Not Detected (Not Detect) RSV (PCR) (Not Detect) Entero/Rhino (PCR) (Not Detect) Serratia marcescens PCR Not Detected (Not Detect) Staphylococcus sp PCR Not Detected (Not Detect) Staph aureus (PCR) DETECTED A (Not Detect) mecA-Methicil Res Gene DETECTED A (Not Detect) Streptococcus sp PCR Not Detected (Not Detect) Group A Strep DNA Not Detected (Not Detect) Group B Strep (PCR) Not Detected (Not Detect) Strep pneumoniae (PCR) Not Detected (Not Detect) P. aeruginosa (PCR) Not Detected (Not Detect) Sil/B-Vanco Res Genes Not Detected (Not Detect) KPC (blaKPC) Detect PCR Not Detected (Not Detect) 12/13/17 Range/Units 09:00 Urine Color (Yellow) Urine Clarity (Clear) Urine pH (5.0-8.0) pH Units Ur Specific [place] (1.010-1.025) Urine Protein (Neg-Trace) mg/dL Urine Glucose (UA) (Normal) mg/dL Urine Ketones (Negative) mg/dL Urine Blood (Negative) Urine Nitrite (Negative) Urine Bilirubin (Negative) Urine Urobilinogen (Normal) mg/dL Ur Leukocyte Esterase (Negative) Urine Microscopic RBC (0-3) per hpf Urine Microscopic WBC (0-3) per hpf Ur Squamous Epith Cells (None-Few) per lpf Ur Transition Epith Cell (None-Few) per hpf Ur Renal Epithelial Cell (None-Few) per hpf Urine Bacteria (None-Few) per hpf Granular Casts (None Seen) per lpf Waxy Casts (None Seen) per lpf Ur Culture Indicated? (NO) Urine Total Volume 1.52 (0.60-1.60) Liters Urine Creatinine 29 mg/dL Ur Creatinine 24 Hour 441 L (600-1800) mg/day Ur Total Protein 24 Hr 3207 H (50-80) mg/day Protein/Creatinin Ratio (0.00-0.20) mg/mg Urine Sodium 60.9 mEq/L Ur Sodium 24 Hour 93 (40-220) mEq/day Urine Urea Nitrogen 63 mg/dL Ur Urea Nitrogen 24 Hr 1 L (12-20) g/day Urine Total Protein 211 H (1-14) mg/dL Nasal Screen MRSA (PCR) (Negative) A. baumannii (PCR) (Not Detect) Chlamy pneumoniae PCR (Not Detect) Adenovirus (PCR) (Not Detect) B. pertussis DNA (PCR) (Not Detect) B.parapertussis DNA PCR (Not Detect) Kerry albicans (PCR) (Not Detect) C. glabrata (PCR) (Not Detect) C. krusei (PCR) (Not Detect) C. parapsilosis (PCR) (Not Detect) C. tropicalis (PCR) (Not Detect) Coronavirus OC43 (PCR) (Not Detect) Coronavirus HKU1 (PCR) (Not Detect) Coronavirus 229E (PCR) (Not Detect) Coronavirus NL63 (PCR) (Not Detect) Enterobacteriac sp PCR (Not Detect) E. cloacae complex PCR (Not Detect) Enterococcus sp PCR (Not Detect) E. coli (PCR) (Not Detect) H. influenzae (PCR) (Not Detect) Hep Bs Antigen (Nonreactive) Hep Bs Antibody mIU/mL Human Metapneumovir PCR (Not Detect) Influenza A (H1) PCR (Not Detect) Influ A (H1N1/09) PCR (Not Detect) Influenza A (H3) PCR (Not Detect) Influenza A Untype (PCR) (Not Detect) Influenza Type B (PCR) (Not Detect) Klebsiella oxytoca PCR (Not Detect) Klebsiella pneumoniae (Not Detect) List. monocytogenes PCR (Not Detect) M.pneumoniae DNA (PCR) (Not Detect) N. meningitidis (PCR) (Not Detect) Parainfluenza 1 (PCR) (Not Detect) Parainfluenza 2 (PCR) (Not Detect) Parainfluenza 3 (PCR) (Not Detect) Parainfluenza 4 (PCR) (Not Detect) Proteus species (PCR) (Not Detect) RSV (PCR) (Not Detect) Entero/Rhino (PCR) (Not Detect) Serratia marcescens PCR (Not Detect) Staphylococcus sp PCR (Not Detect) Staph aureus (PCR) (Not Detect) mecA-Methicil Res Gene (Not Detect) Streptococcus sp PCR (Not Detect) Group A Strep DNA (Not Detect) Group B Strep (PCR) (Not Detect) Strep pneumoniae (PCR) (Not Detect) P. aeruginosa (PCR) (Not Detect) Sil/B-Vanco Res Genes (Not Detect) KPC (blaKPC) Detect PCR (Not Detect) - Impressions Impressions Tunnelled Catheter Removal 12/17/17 00:00 IMPRESSION: Successful removal of a tunneled dialysis catheter. D/ / Dani Kitchen MD / Dani Kitchen MD Interpreting Provider: Dani Kitchen MD Echocardiogram 12/17/17 14:01 Impressions: LVEF 60%. Indeterminate diastolic function. Normal right ventricular structure and function. Mild mitral regurgitation. Mild-moderate tricuspid regurgitation. No pulmonary hypertension. No echo evidence of endocarditis. Left Ventricular Wall Motion: Rest Echo Findings All wall segments showed normal motion. Findings: Study Quality * Technically adequate exam. ECG Findings * Normal sinus rhythm. Left Ventricle * LVEF 60%. * Normal LV chamber size, wall thickness and function. * Indeterminate diastolic function. Right Ventricle * Normal right ventricular structure and function. Left Atrium * Moderately dilated left atrium. Right Atrium * Normal right atrial size. Mitral Valve * Normal mitral valve structure. * No mitral stenosis. * Mild mitral regurgitation. Aortic Valve * No aortic regurgitation. * Trileaflet aortic valve. * No aortic stenosis. Tricuspid Valve * Normal tricuspid valve structure. * Mild-moderate tricuspid regurgitation. * Estimated RA pressure is 3 mmHg. * Estimated RVSP is 33 mmHg. * No pulmonary hypertension. Pulmonic Valve * Pulmonic valve is not well visualized. * No pulmonic stenosis. * No pulmonic regurgitation. Pulmonary Artery * Pulmonary artery not well visualized. Aorta * Normally sized aortic root. Pericardium * There is no pericardial effusion present. Interatrial Septum * No evidence of PFO by color Doppler. IVC * The IVC is not dilated. Exam - Constitutional Vitals: Temp Pulse Resp BP Pulse Ox 97.8 F 62 20 142/58 100 12/18/17 11:16 12/18/17 11:16 12/18/17 11:16 12/18/17 11:16 12/18/17 11:16 General appearance: cooperative, no acute distress, obese - Head Head exam: Present: atraumatic, normal inspection, normocephalic - Eye Eye exam: Present: EOMI, normal appearance, PERRL Pupils: Present: normal accommodation Additional comments: No subconjunctival hemorrhage noted. - ENT ENT exam: Present: mucous membranes moist - Neck Neck exam: Present: normal inspection - Respiratory Respiratory exam: Present: CTAB. Absent: rales, respiratory distress, rhonchi, wheezes - Cardiovascular Cardiovascular exam: Present: RRR, +S1, +S2 - GI/Abdominal GI/Abdominal exam: Present: normal bowel sounds, soft. Absent: distended, tenderness Additional comments: Hwang catheter noted to be draining clear yellow urine. - Extremities Exam Extremities exam: Present: normal inspection. Absent: joint swelling, pedal edema, tenderness - Neurological Exam Neurological exam: Present: alert, oriented X3, no focal deficits - Psychiatric Psychiatric exam: Present: normal affect, normal mood - Skin Skin exam: Present: dry, intact, normal color, warm Additional comments: No endocarditis stigmata noted. Consult Discharge Plan - Plan Referrals: Jay Valenzuela DO [Primary Care Provider] - - Attending Attestation I examined this patient and my medical decision-making was reviewed with the Resident Physician. I agree with the documented findings, disposition and treatment plan as described except to the extent set forth below.
[2017-12-18] MEDS: metOLazone 5 MG TABLET PO SCH (17:43)
[2017-12-18] MEDS: Furosemide 40 MG TABLET PO SCH (17:43)
[2017-12-18] MEDS: Famotidine 20 MG TABLET PO SCH (20:19)
[2017-12-18] MEDS ORDERED: Acetaminophen 325 MG TABLET PO ONE (21:28)
[2017-12-19 05:04] LABS: Basophils % 0.7 %; Eosinophils # 0.3 K/mcL (0.0-0.6); Eosinophils % 5.7 %; Hematocrit 31.4 % (35.3-44.9); Hemoglobin 9.7 g/dL (11.5-15.4); Lymphocytes # 1.3 K/mcL (0.6-4.6); Lymphocytes % 21.1 %; Mean Corpuscular HGB Conc 30.9 g/dL (31.6-35.5); Mean Corpuscular Volume 84.2 fL (83.0-100.0); Mean Platelet Volume 10.2 fL (9.4-12.4); Monocytes # 0.7 K/mcL (0.0-1.3); Monocytes % 11.4 %; Neutrophils # 3.6 K/mcL (1.6-8.9); Platelet Count 155 K/mcL (140-400); Red Blood Count 3.73 M/mcL (3.82-4.97); Red Cell Distribution Width 15.9 % (11.5-14.5); Segmented Neutrophils % 60.1 %
[2017-12-19 05:24] LABS: Potassium 3.6 mEq/L (3.5-5.1)
--- NOTE | 2017-12-19 07:54 | Nephrology Progress Note ---
Date of Encounter: 12/19/17 Time of Encounter: 08:40 - Assessment and Plan (1) TAMEKA (acute kidney injury) Current Visit: No Status: Acute Hx of dialysis-dependent TAMEKA (she has not previously been declared ESRD, but was getting thrice weekly HD). Then was found septic and needed the Permacath removed on after HD. Thursday she appeared well compensated and so there was need for a temporary HD catheter, and I agree with ID to avoide placing intravascular lines, if able, to help better treat her bactermia from a source control perspective. I recommend resuming her diuretics (loop and metolazone) and adding KCl to help her maintain her volume status through the and then if needed to have the Permacath placed on Thursday. The diuretics should be continues as she has a mild, but worsening hypervolemic hyponatremia. Continue to follow a renal protective strategy: avoid nephrotoxins and renal dosing, strict I/Os, daily weights, appropriate diet. Thank you. (2) Acute and chronic respiratory failure with hypercapnia Current Visit: No Status: Acute Per primary. (3) Hypokalemia Current Visit: Yes Status: Acute Corrected. Will monitor while on diuretics. May easily become hypokalemic again. (4) Elevated troponin Current Visit: Yes Status: Acute As per primary. (5) Bacteremia Current Visit: Yes Status: Acute see above Subjective Principal diagnosis: fever/lethargic Interval history: The patient was seen and examined - her room had been changed to . she was sitting upright on the edge of her bed. She did not affirm new symptoms such as nausea, diminished appetite, confusion, or any worsening of her swelling. She described as swelling and breathing is stable Objective - Vital Signs Vital signs: Vital Signs Temp Pulse Resp BP Pulse Ox 12/19/17 02:37 97.6 F 81 18 136/70 97 12/18/17 22:35 19 95 12/18/17 22:26 98.3 F 58 16 128/71 99 12/18/17 18:53 98.2 F 57 16 137/71 99 12/18/17 17:36 143/54 12/18/17 15:01 97.7 F 66 16 137/75 100 12/18/17 11:16 97.8 F 62 20 142/58 100 12/18/17 10:45 12 99 Intake and Output 12/18/17 12/18/17 12/19/17 15:59 23:59 07:59 Output Total 500 / 500 200 / 200 Balance -500 / -500 -200 / -200 Output: Urine 200 / 200 Catheter 500 / 500 Urethral (Hwang) 500 / 500 Other: # Voids 1 Weight 115.7 kg Blood Glucose* 169 164 Patient Weight 12/19/17 23:59 Weight 115.7 kg - General Appearance Exam: General appearance: Present: well-developed, well-nourished, appears started age, obese EENT: Present: ATNC, PERRL, mucous membranes moist Neck: Present: supple Respiratory: Present: rhonchi in the bibasilar lobes Cardiology: Present: edema (Trace ankle edema, bilaterally), regular rate, regular rhythm, normal S1, normal S2 Gastrointestinal: Present: normoactive bowel sounds, no tenderness, no guarding, obese Integumentary: Present: no rash, warm and dry Neurologic: Present: no focal deficit, no asterixis, alert and oriented x3 Musculoskeletal: Present: no deformities, no erythema, no cyanosis Psychiatric: Present: mood/affect appropriate, cooperative - Lab 12/19/17 04:42 12/19/17 04:42 Most recent lab results Calcium 9.0 mg/dL (8.6-10.3) 12/19/17 04:42 Phosphorus 2.4 mg/dL (2.7-4.5) L 12/15/17 07:27 Magnesium 1.3 mg/dL (1.6-2.6) L 12/15/17 07:27 Urine Creatinine 146 mg/dL 12/15/17 08:07 Ur Total Protein 24 Hr 3207 mg/day (50-80) H 12/13/17 09:00 Urine Sodium 60.9 mEq/L 12/13/17 09:00 Urine Total Protein 1218 mg/dL (1-14) H 12/15/17 08:07 Consult Discharge Plan - Plan Referrals: Jay Valenzuela DO [Primary Care Provider] -
[2017-12-19] MEDS: Insulin LISPRO 300 UNITS/3 ML VIAL SQ SCH ×4 (07:58→20:03)
[2017-12-19] MEDS: Tiotropium 18 MCG inhalation IH SCH (08:55)
[2017-12-19] MEDS: Budesonide/Formoterol 160/4.5 1 PUFF INH IH SCH ×2 (08:55→22:34)
[2017-12-19] MEDS: Furosemide 40 MG TABLET PO SCH (09:36)
[2017-12-19] MEDS: cloNIDine HCl 0.1 MG TABLET PO SCH ×3 (09:36→20:04)
[2017-12-19] MEDS: *HR* Heparin 5,000 UNIT/ML VIAL SQ SCH ×3 (09:36→23:08)
[2017-12-19] MEDS: Ranolazine 500 MG TAB.ER.12H PO SCH ×2 (09:37→20:04)
[2017-12-19] MEDS: risperiDONE 1 MG TABLET PO SCH (09:37)
[2017-12-19] MEDS: metOLazone 5 MG TABLET PO SCH (09:37)
--- NOTE | 2017-12-19 10:38 | Internal Med Progress Note ---
Hospitalist Progress Note - Encounter Date of Encounter: 12/19/17 Time of Encounter: 09:23 - Subjective Interval History: Patient seen and examined this morning. Feeling better. No fever, chills, N/V/D, sob, chest pain or abdominal pain. - Exam Vitals: Temp Pulse Resp BP Pulse Ox 97.4 F L 73 18 140/77 93 12/19/17 07:53 12/19/17 07:53 12/19/17 08:57 12/19/17 07:53 12/19/17 08:57 Exam: Constitutional: Vitals as noted. In no Distress. Morbid obesity Respiratory: Clear to auscultation bilaterally. No accessory muscle use, rales, rhonchi or wheezes Cardiovascular : RRR, +S1, +S2. no murmur, gallop, rubs. No chest wall tenderness, pulses palpable and symmetrical in UE/LE. 1+ edema, no cyanosis. no calf tenderness. Leg swelling improving GI/Abdominal : Soft, Obese, Non-tender, Non-distended, normal bowel sounds, no peritoneal signs. no orgenomegaly, hernia or mass appreciated. Neurological: AO X2, CN II-XII grossly intact, motor and sensory exam Skin: No open wound present. No skin rash noted. Pych: AOx3. - Assessment and Plan (1) Sepsis Current Visit: Yes Status: Acute (2) Proteinuria Current Visit: Yes Status: Acute (3) Hypomagnesemia Current Visit: Yes Status: Acute (4) Diabetes mellitus Current Visit: No Status: Chronic (5) Morbid obesity Current Visit: No Status: Chronic (6) HUSAM (obstructive sleep apnea) Current Visit: No Status: Chronic (7) Hypokalemia Current Visit: No Status: Resolved (8) Elevated troponin I level Current Visit: No Status: Acute (9) Swelling of lower extremity Current Visit: Yes Status: Acute (10) CAD (coronary artery disease) Status: Acute (11) HTN (hypertension) Current Visit: No Status: Acute (12) COPD (chronic obstructive pulmonary disease) Current Visit: Yes Status: Acute - Summary of Assessment and Plan Summary of Assessment and Plan: Sepsis with bacteremia - Initially with leukocytosis, fever, tachypnea - Dialysis catheter probable source. Permacath removed. - CT negative for pneumonia - Negative MRSA screen, urine strep pneumo and legionella antigen testing, respiratory panel. - blood cultures Positive from 12/15 for MRSA. BC 12/17 postive for GPC. Culture negative from yesterday. - DALE without vegetation - c/w vancomycin. Pharmacy to dose - ID following. - Plan for permacath placement on thursday. HTN - Currently stable - c/w coreg and clonidine - Will resume hydralazine if BP not controlled. ESRD - HD per nephrology - Will resume Lasix and metolazone per Nephro for volume control. Hypomagnesemia/Hypokalemia - now resolved - Managed with HD. Diabetes mellitus - well controlled - Insulin sliding scales and Accu-Cheks HUSAM - Continue CPAP at night and when sleeping Elevated troponin I level with h/o CAD - Likely from demand ischemia and CKD - TTE with Ef 60, intemediate diastolic dysfunction, No WMA, Swelling of lower extremity - US negative for DVT - Likely related to fluid overload - improved with ultrafiltration CAD - c/w home coreg, aspirin, plavix ,statin and ranolazine - Denies chest pain. Elevated troponin likely from sepsis and CKD. h/o COPD - Well controlled - Continue home Symbicort, spiriva and as needed albuterol - Time Spent with Patient Total time spent is greater than 50% in coordination of care (as documented) at patient's floor/unit and/or counseling patient: Internal Medicine: Result - Labs CBC & Chem 7: 12/19/17 04:42 12/19/17 04:42 Labs: Short CBC 12/18/17 12/19/17 Range/Units 10:15 04:42 WBC 7.9 6.0 (4.3-11.1) K/mcL Hgb 9.9 L 9.7 L (11.5-15.4) g/dL Hct 31.8 L 31.4 L (35.3-44.9) % Plt Count 144 155 (140-400) K/mcL Neutrophils # 6.1 3.6 (1.6-8.9) K/mcL BMP 12/18/17 12/19/17 10:15 04:42 Sodium 133 L 131 L Potassium 3.7 3.6 Chloride 94 L 93 L Carbon Dioxide 30 H 29 BUN 16 22 Creatinine 3.44 H 4.04 H Glucose 130 H 113 H Calcium 8.8 9.0 - ABG Interpretation ABG results: PT/INR, D-dimer PT 14.2 Seconds (9.4-12.1) H 12/15/17 07:27 - Impressions Impressions Tunnelled Catheter Removal 12/17/17 00:00 IMPRESSION: Successful removal of a tunneled dialysis catheter. D/ / Dani Kitchen MD / Dani Kitchen MD Interpreting Provider: Dani Kitchen MD Consult Discharge Plan - Plan Referrals: Jay Valenzuela DO [Primary Care Provider] - (1) Sepsis Qualifiers: Qualified Code(s): A41.9 - Sepsis, unspecified organism (2) Proteinuria Qualifiers: Qualified Code(s): R80.9 - Proteinuria, unspecified (4) Diabetes mellitus Qualifiers: Diabetes mellitus type: type 2 Diabetes mellitus [place] insulin use: with gas [place] use Diabetes mellitus complication status: with kidney complications Diabetes mellitus complication detail: with chronic kidney disease Chronic kidney disease stage: stage 4 (severe) Qualified Code(s): E11.22 - Type 2 diabetes mellitus with diabetic chronic kidney disease; N18.4 - Chronic kidney disease, stage 4 (severe); Z79.4 - long term (current) use of insulin (10) CAD (coronary artery disease) Qualifiers: Associated angina: without angina (11) HTN (hypertension) Qualifiers: Hypertension type: essential hypertension Qualified Code(s): I10 - Essential (primary) hypertension (12) COPD (chronic obstructive pulmonary disease) Qualifiers: COPD type: unspecified COPD Qualified Code(s): J44.9 - Chronic obstructive pulmonary disease, unspecified
[2017-12-19] MEDS: Famotidine 20 MG TABLET PO SCH (20:04)
[2017-12-20 04:26] LABS: Basophils # 0.1 K/mcL (0.0-0.2); Basophils % 0.8 %; Eosinophils # 0.3 K/mcL (0.0-0.6); Eosinophils % 4.2 %; Hematocrit 27.5 % (35.3-44.9); Hemoglobin 8.6 g/dL (11.5-15.4); Immature Granulocytes % 1.7 % (0-4); Lymphocytes # 1.5 K/mcL (0.6-4.6); Lymphocytes % 21.2 %; Mean Corpuscular HGB Conc 31.3 g/dL (31.6-35.5); Mean Corpuscular Hemoglobin 25.9 pg (28.0-33.3); Mean Corpuscular Volume 82.8 fL (83.0-100.0); Mean Platelet Volume 9.7 fL (9.4-12.4); Monocytes # 0.8 K/mcL (0.0-1.3); Monocytes % 11.8 %; Neutrophils # 4.3 K/mcL (1.6-8.9); Platelet Count 168 K/mcL (140-400); Red Blood Count 3.32 M/mcL (3.82-4.97); Red Cell Distribution Width 15.5 % (11.5-14.5); Segmented Neutrophils % 60.3 %
[2017-12-20 04:47] LABS: Calcium 8.7 mg/dL (8.6-10.3); Potassium 3.8 mEq/L (3.5-5.1)
[2017-12-20] MEDS: Budesonide/Formoterol 160/4.5 1 PUFF INH IH SCH ×2 (07:50→20:33)
[2017-12-20] MEDS: Tiotropium 18 MCG inhalation IH SCH (07:50)
[2017-12-20] MEDS: Insulin LISPRO 300 UNITS/3 ML VIAL SQ SCH ×4 (08:52→19:29)
[2017-12-20] MEDS: cloNIDine HCl 0.1 MG TABLET PO SCH ×3 (08:54→19:28)
--- NOTE | 2017-12-20 08:54 | Nephrology Progress Note ---
Date of Encounter: 12/20/17 Time of Encounter: 10:05 - Assessment and Plan (1) TAMEKA (acute kidney injury) Current Visit: No Status: Acute Progressively worsening SCr as would be expected in a pt who is dependent on dialysis. She last dialyzed on . I would placing a new dialysis catheter (Permacath if Blood Cultures have finalized as no growth, or a temporary/non- tunneled HD catheter as a starting point) on Thursday morning as she should have HD by tomorrow. I have placed a new consult for Thursday to IR, and will place HD orders for Thursday. Hypervolemic hyponatremia, slowly progressively worsening to 129. Related to her edema and renal failure. I suspect she may not just be a dialysis dependent TAMEKA but is more likely ESRD at this point. She remains a high risk pt with complexity and high degree of E/M and MDM. Continue to follow a renal protective strategy: avoid nephrotoxins and renal dosing, strict I/Os, daily weights, appropriate diet. My colleague Dr. Melo will be on-call starting on Thursday. I will provide a thorough sign-out. Thank you. (2) Acute and chronic respiratory failure with hypercapnia Current Visit: No Status: Acute As per primary. (3) Elevated troponin Current Visit: Yes Status: Acute (4) Bacteremia Current Visit: Yes Status: Acute Appreciate ID (5) Hyponatremia Current Visit: Yes Status: Acute See above Subjective Principal diagnosis: fever/lethargic Interval history: The patient was seen and examined. Her adult daughter was present and we talked about being NPO at [place] in hopes for a Permacath or a Temporary HD catheter. She did not affirm new symptoms such as nausea, diminished appetite, confusion, or any worsening of her swelling. She described as swelling and breathing is stable Objective - Vital Signs Vital signs: Vital Signs Temp Pulse Resp BP Pulse Ox 12/20/17 07:50 12 97 12/20/17 06:53 97.5 F L 71 18 135/78 95 12/20/17 02:36 98.8 F 63 16 120/77 100 12/19/17 22:52 98.7 F 58 18 154/69 100 12/19/17 22:35 18 100 12/19/17 18:58 98.6 F 57 18 168/83 94 12/19/17 16:27 97.5 F L 62 18 147/78 100 12/19/17 11:37 98.0 F 64 16 163/73 98 Intake and Output 12/20/17 12/20/17 12/20/17 00:59 07:59 15:59 Intake Total Output Total Balance Intake: IV Fluids Oral Output: Urine Other: Meal Percent of Meal Consumed Weight Blood Glucose* Patient Weight 12/20/17 22:59 Weight 115.5 kg - General Appearance Exam: General appearance: Present: well-developed, well-nourished, appears started age, obese EENT: Present: ATNC, PERRL, mucous membranes moist Neck: Present: supple Respiratory: Present: rhonchi in the bibasilar lobes Cardiology: Present: edema (Trace ankle edema, bilaterally), regular rate, regular rhythm, normal S1, normal S2 Gastrointestinal: Present: normoactive bowel sounds, no tenderness, no guarding, obese Integumentary: Present: no rash, warm and dry Neurologic: Present: no focal deficit, no asterixis, alert and oriented x3 Musculoskeletal: Present: no deformities, no erythema, no cyanosis Psychiatric: Present: mood/affect appropriate, cooperative - Lab 12/21/17 10:21 12/21/17 10:21 Most recent lab results Calcium 8.7 mg/dL (8.6-10.3) 12/20/17 04:10 Phosphorus 2.4 mg/dL (2.7-4.5) L 12/15/17 07:27 Magnesium 1.3 mg/dL (1.6-2.6) L 12/15/17 07:27 Urine Creatinine 146 mg/dL 12/15/17 08:07 Ur Total Protein 24 Hr 3207 mg/day (50-80) H 12/13/17 09:00 Urine Sodium 58.9 mEq/L 12/20/17 01:13 EST Urine Total Protein 1218 mg/dL (1-14) H 12/15/17 08:07 Consult Discharge Plan - Plan Instructions: Sepsis (DC), Sepsis (GEN) Referrals: Jay Valenzuela DO [Primary Care Provider] - 12/28/17 1:00 pm
[2017-12-20] MEDS: Furosemide 40 MG TABLET PO SCH (08:55)
[2017-12-20] MEDS: *HR* Heparin 5,000 UNIT/ML VIAL SQ SCH ×2 (08:55→16:26)
[2017-12-20] MEDS: metOLazone 5 MG TABLET PO SCH (08:55)
[2017-12-20] MEDS: Ranolazine 500 MG TAB.ER.12H PO SCH ×2 (08:55→19:28)
[2017-12-20] MEDS: risperiDONE 1 MG TABLET PO SCH (08:55)
--- NOTE | 2017-12-20 12:20 | Internal Med Progress Note ---
Hospitalist Progress Note - Encounter Date of Encounter: 12/20/17 Time of Encounter: 10:36 - Subjective Interval History: Patient seen and examined this morning. No new complains. No fever, chills, N/V/D, sob, chest pain or abdominal pain. - Exam Vitals: Temp Pulse Resp BP Pulse Ox 98.6 F 56 14 147/61 100 12/20/17 11:48 12/20/17 11:48 12/20/17 11:48 12/20/17 11:48 12/20/17 11:48 Exam: Constitutional: Vitals as noted. In no Distress. Morbid obesity Respiratory: Clear to auscultation bilaterally. No accessory muscle use, rales, rhonchi or wheezes Cardiovascular : RRR, +S1, +S2. no murmur, gallop, rubs. No chest wall tenderness, pulses palpable and symmetrical in UE/LE. 1+ edema, no cyanosis. no calf tenderness. Leg swelling improving GI/Abdominal : Soft, Obese, Non-tender, Non-distended, normal bowel sounds, no peritoneal signs. no orgenomegaly, hernia or mass appreciated. Neurological: AO X2, CN II-XII grossly intact, motor and sensory exam Skin: No open wound present. No skin rash noted. Pych: AOx3. - Assessment and Plan (1) Sepsis Current Visit: Yes Status: Acute (2) Proteinuria Current Visit: Yes Status: Acute (3) Hypomagnesemia Current Visit: Yes Status: Acute (4) Diabetes mellitus Current Visit: No Status: Chronic (5) Morbid obesity Current Visit: No Status: Chronic (6) HUSAM (obstructive sleep apnea) Current Visit: No Status: Chronic (7) Hypokalemia Current Visit: No Status: Resolved (8) Elevated troponin I level Current Visit: No Status: Acute (9) Swelling of lower extremity Current Visit: Yes Status: Acute (10) CAD (coronary artery disease) Status: Acute (11) HTN (hypertension) Current Visit: No Status: Acute (12) COPD (chronic obstructive pulmonary disease) Current Visit: Yes Status: Acute - Summary of Assessment and Plan Summary of Assessment and Plan: Sepsis with bacteremia - Initially with leukocytosis, fever, tachypnea - Dialysis catheter probable source. Permacath removed. - CT negative for pneumonia - Negative MRSA screen, urine strep pneumo and legionella antigen testing, respiratory panel. - blood cultures Positive from 12/15 for MRSA. BC 12/17 postive for GPC. Culture from catheter tip and 12/18,12/19 NGTD. - DALE without vegetation - c/w vancomycin. Pharmacy to dose - ID following. - Plan for permacath placement on thursday. HTN - Currently stable - c/w coreg and clonidine - Will resume hydralazine if BP not controlled. ESRD - HD per nephrology - Will resume Lasix and metolazone per Nephro for volume control. Hypomagnesemia/Hypokalemia - now resolved - Managed with HD. Diabetes mellitus - well controlled - Insulin sliding scales and Accu-Cheks HUSAM - Continue CPAP at night and when sleeping Elevated troponin I level with h/o CAD - Likely from demand ischemia and CKD - TTE with Ef 60, intemediate diastolic dysfunction, No WMA, Swelling of lower extremity - US negative for DVT - Likely related to fluid overload - improved with ultrafiltration CAD - c/w home coreg, aspirin ,statin and ranolazine. Plavix held - Denies chest pain. Elevated troponin likely from sepsis and CKD. h/o COPD - Well controlled - Continue home Symbicort, spiriva and as needed albuterol - Time Spent with Patient Total time spent is greater than 50% in coordination of care (as documented) at patient's floor/unit and/or counseling patient: Internal Medicine: Result - Labs CBC & Chem 7: 12/20/17 04:10 12/20/17 04:10 Labs: Short CBC 12/20/17 Range/Units 04:10 WBC 7.1 (4.3-11.1) K/mcL Hgb 8.6 L (11.5-15.4) g/dL Hct 27.5 L (35.3-44.9) % Plt Count 168 (140-400) K/mcL Neutrophils # 4.3 (1.6-8.9) K/mcL BMP 12/20/17 04:10 Sodium 129 L Potassium 3.8 Chloride 93 L Carbon Dioxide 27 BUN 28 H Creatinine 5.10 H Glucose 123 H Calcium 8.7 - ABG Interpretation ABG results: PT/INR, D-dimer PT 14.2 Seconds (9.4-12.1) H 12/15/17 07:27 Consult Discharge Plan - Plan Referrals: Jay Valenzuela DO [Primary Care Provider] - (1) Sepsis Qualifiers: Qualified Code(s): A41.9 - Sepsis, unspecified organism (2) Proteinuria Qualifiers: Qualified Code(s): R80.9 - Proteinuria, unspecified (4) Diabetes mellitus Qualifiers: Diabetes mellitus type: type 2 Diabetes mellitus [place] insulin use: with penitentiary use Diabetes mellitus complication status: with kidney complications Diabetes mellitus complication detail: with chronic kidney disease Chronic kidney disease stage: stage 4 (severe) Qualified Code(s): E11.22 - Type 2 diabetes mellitus with diabetic chronic kidney disease; N18.4 - Chronic kidney disease, stage 4 (severe); Z79.4 - MCC (current) use of insulin (10) CAD (coronary artery disease) Qualifiers: Associated angina: without angina (11) HTN (hypertension) Qualifiers: Hypertension type: essential hypertension Qualified Code(s): I10 - Essential (primary) hypertension (12) COPD (chronic obstructive pulmonary disease) Qualifiers: COPD type: unspecified COPD Qualified Code(s): J44.9 - Chronic obstructive pulmonary disease, unspecified
[2017-12-20] MEDS: Famotidine 20 MG TABLET PO SCH (19:29)
[2017-12-21] MEDS: *HR* Heparin 5,000 UNIT/ML VIAL SQ SCH ×3 (00:09→16:51)
[2017-12-21] MEDS ORDERED: 0.9 % Sodium Chloride 250 ML IVC PRN (06:30)
[2017-12-21] MEDS: Budesonide/Formoterol 160/4.5 1 PUFF INH IH SCH (07:41)
[2017-12-21] MEDS: Tiotropium 18 MCG inhalation IH SCH (07:41)
[2017-12-21] MEDS: Furosemide 40 MG TABLET PO SCH (08:50)
[2017-12-21] MEDS: Insulin LISPRO 300 UNITS/3 ML VIAL SQ SCH ×4 (08:50→21:29)
[2017-12-21] MEDS: cloNIDine HCl 0.1 MG TABLET PO SCH ×3 (08:50→21:28)
[2017-12-21] MEDS: Ranolazine 500 MG TAB.ER.12H PO SCH ×2 (08:50→21:28)
[2017-12-21] MEDS: risperiDONE 1 MG TABLET PO SCH (08:51)
[2017-12-21] MEDS: metOLazone 5 MG TABLET PO SCH (08:51)
[2017-12-21 10:39] LABS: Basophils # 0.1 K/mcL (0.0-0.2); Basophils % 0.9 %; Eosinophils # 0.2 K/mcL (0.0-0.6); Eosinophils % 2.6 %; Hemoglobin 9.2 g/dL (11.5-15.4); Immature Granulocytes % 2.1 % (0-4); Lymphocytes # 1.2 K/mcL (0.6-4.6); Lymphocytes % 14.9 %; Mean Corpuscular HGB Conc 31.7 g/dL (31.6-35.5); Mean Corpuscular Hemoglobin 26.2 pg (28.0-33.3); Mean Corpuscular Volume 82.6 fL (83.0-100.0); Mean Platelet Volume 9.6 fL (9.4-12.4); Monocytes # 0.7 K/mcL (0.0-1.3); Neutrophils # 5.9 K/mcL (1.6-8.9); Platelet Count 201 K/mcL (140-400); Red Blood Count 3.51 M/mcL (3.82-4.97); Red Cell Distribution Width 15.4 % (11.5-14.5); Segmented Neutrophils % 71.5 %
[2017-12-21 10:46] LABS: Prothrombin Time 11.4 Seconds (9.4-12.1)
[2017-12-21 10:56] LABS: Calcium 9.1 mg/dL (8.6-10.3); Potassium 3.9 mEq/L (3.5-5.1)
--- NOTE | 2017-12-21 12:21 | Discharge Summary ---
- NOTES TO OUTPATIENT PROVIDER Notes to Outpatient Provider: Blood pressure elevated in 160s - 150s systolic. Will need follow-up and adjustment of her antihypertensives. 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 [IR] Routine IR us guide vascular access [IR] Routine 12/23/17 04:00 Vancomycin,Random AM 0400 Date of Encounter: 12/21/17 Time of Encounter: 12:17 - Discharge Diagnosis (1) Sepsis Priority: Primary Status: Acute Qualifiers: Qualified Code(s): A41.9 - Sepsis, unspecified organism (2) Proteinuria Priority: Secondary Status: Acute Qualifiers: Qualified Code(s): R80.9 - Proteinuria, unspecified (3) Hypomagnesemia Priority: Secondary Status: Acute (4) Diabetes mellitus Priority: Secondary Status: Chronic Qualifiers: Diabetes mellitus type: type 2 Diabetes mellitus half-way insulin use: with half-way use Diabetes mellitus complication status: with kidney complications Diabetes mellitus complication detail: with chronic kidney disease Chronic kidney disease stage: stage 4 (severe) Qualified Code(s): E11.22 - Type 2 diabetes mellitus with diabetic chronic kidney disease; N18.4 - Chronic kidney disease, stage 4 (severe); Z79.4 - long-term (current) use of insulin (5) Morbid obesity Priority: Secondary Status: Chronic (6) HUSAM (obstructive sleep apnea) Priority: Secondary Status: Chronic (7) Hypokalemia Priority: Secondary Status: Resolved (8) Elevated troponin I level Priority: Primary Status: Acute (9) Swelling of lower extremity Priority: Secondary Status: Acute (10) CAD (coronary artery disease) Priority: Secondary Status: Acute Qualifiers: Associated angina: without angina Qualified Code(s): I25.10 - Atherosclerotic heart disease of [place] coronary artery without angina pectoris (11) HTN (hypertension) Priority: Secondary Status: Acute Qualifiers: Hypertension type: essential hypertension Qualified Code(s): I10 - Essential (primary) hypertension (12) COPD (chronic obstructive pulmonary disease) Priority: Secondary Status: Acute Qualifiers: COPD type: unspecified COPD Qualified Code(s): J44.9 - Chronic obstructive pulmonary disease, unspecified (13) Bacteremia Priority: Primary Status: Acute (14) Acute kidney injury superimposed on CKD Priority: Secondary Status: Acute Hospital course: Ms. Garcia is a 67 year old female with past medical history of diastolic CHF, COPD, diabetes on insulin, obstructive sleep apnea, CAD and chronic kidney disease who recently started on dialysis was admitted for sepsis. She became dialysis dependent on her previous admission for pneumonia. Not labelled as ESRD. She was started on broad-spectrum antibiotics. Blood cultures grew MRSA. Infectious disease was consulted and she was continued on vancomycin. Patient's permacath access was a probable source. She was continued on dialysis initially with the previous access. It was removed and she was was over the weekend while receiving metolazone and Lasix for volume control. However catheter tip did not grow anything. Given multiple positive blood cultures with MRSA patient had DALE which was negative for endocarditis. Cardiology was also consulted initially for elevated troponin who felt it was likely from sepsis ESRD and elevated blood pressure. Patient stable over the past few days. Patient will get dialysis access with a new permacath placement today and discharged later on. Patient to continue IV antibiotic with dialysis for 6 more dose. Discharge discussed with: patient, nurse, social work, case management, lead consultant - Time Spent with Patient Total time spent providing and/or coordinating discharge services: Greater than 30 minutes (30) - Discharge Medications Home Medications: ALPRAZolam [Xanax 1 MG Tablet] 1 mg PO BID 04/15/17 [History] Clopidogrel [Plavix] 75 mg PO DAILY 04/15/17 [History] DULoxetine [Cymbalta] 30 mg PO BID 04/15/17 [History] Famotidine [Heartburn Prevention] 20 mg PO DAILY 04/15/17 [History] risperiDONE [Risperidone] 1 mg PO HS 04/15/17 [History] Ranolazine [Ranexa] 500 mg PO BID 07/23/17 [History] Rosuvastatin [Crestor] 40 mg PO QPM 07/23/17 [History] Budesonide/Formoterol 160/4.5 [Symbicort 160/4.5] 2 puff IH BIDR 09/28/17 [History] Furosemide [Lasix] 40 mg PO DAILY 09/28/17 [History] HYDROcodone/Acet 5/325 mg [[place] 5-325 mg] 1 tab PO BID PRN 09/28/17 [History] Tiotropium [Spiriva] 1 puff IH DAILY 09/28/17 [History] Ergocalciferol (VITAMIN D2) [Drisdol (50,000 Unit)] 50,000 unit PO QWEEK #4 capsule 10/04/17 [Rx] Hydralazine HCl 100 mg PO TID #90 tablet 10/04/17 [Rx] Furosemide [Lasix] 40 mg PO QAM 11/07/17 [History] Carvedilol [Coreg] 25 mg PO BIDWM 30 Days #30 tablet 11/21/17 [Rx] cloNIDine HCl [CloNIDine HCl] 0.1 mg PO TID 30 Days #90 tablet 11/21/17 [Rx] metOLazone [Zaroxolyn] 5 mg PO DAILY@0730 30 Days #30 tablet 11/21/17 [Rx] Aspirin [Lo-Dose Aspirin EC] 81 mg PO DAILY 12/15/17 [History] Insulin Regular U-500 [HumuLIN R U-500] 70 unit SQ TID 12/15/17 [History] NIFEdipine [Nifedipine ER] 90 mg PO DAILY 12/15/17 [History] Sevelamer [Renvela] 800 mg PO TID 12/15/17 [History] Trazodone HCl 100 mg PO HS 12/15/17 [History] Albuterol Sulfate [Albuterol Inhaler] 2 puff IH Q6H PRN inhaler 12/21/17 [Rx] Allergies/Adverse Reactions: Allergy/AdvReac Type Severity Reaction Status Date / Time morphine Allergy Hallucinati Verified 09/27/17 17:49 ng Sulfa (Sulfonamide Allergy Rash Verified 09/27/17 17:49 Antibiotics) Date of admission: 12/15/17 09:57 Primary care physician: Jay Valenzuela Consults: 12/15/17 09:11 Consult to Nephrology [CONS] Stat Consulting Provider: Kidney Amina/HINA/MONY/JENS Reason for Consult: Dialysis Call Completed: Yes 12/16/17 08:42 Consult to Cardiology [CONS] Routine Comment: Consulting Provider: Cardiology Amina Reason for Consult: Pt with CAD, CKD w TAMEKA, persistent elevation of troponin. Time Notified: 08:43 Call Completed: Yes 12/16/17 09:30 Consult to Dialysis [CONS] ONCE 12/16/17 11:02 Consult to Infectious Diseases [CONS] Routine Consulting Provider: Infectious Disease Amina Reason for Consult: MRSA blood culture, sepsis, HD catheter Time Notified: 11:05 Call Completed: Yes 12/17/17 07:00 Consult to Dialysis [CONS] ONCE 12/17/17 11:38 Consult to Interventional Radiology [CONS] Routine Consulting Provider: Radiology Interventional Cols Reason for Consult: please remove Tunneled Line, send tip for culture. Thanks! Time Notified: 11:40 Call Completed: Yes 12/17/17 14:55 Consult to Invasive Line Access Team [CONS] Routine Reason for Consult: no iv access Line Type: EPIV 12/18/17 05:00 Consult to Interventional Radiology [CONS] Routine Consulting Provider: Radiology Interventional Cols Reason for Consult: Please place Temp line tomorrow 12/17/17, Dr. Bernal takes call at 0800 tomorrow, please speak with him before placing. Thanks! Time Notified: 11:44 Call Completed: Yes 12/21/17 05:05 Consult to Interventional Radiology [CONS] Routine Consulting Provider: Radiology Interventional Cols Reason for Consult: Please place a Permacath if Blood Cultures have finalized as no growth, or a temporary/non-tunneled HD catheter as a starting point on Thursday. Call Completed: No 12/21/17 06:30 Consult to Dialysis [CONS] ONCE Discharging clinician: Zhou Stringer - Constitutional Vitals: Temp Pulse Resp BP Pulse Ox 98.0 F 60 20 162/78 99 12/21/17 11:38 12/21/17 11:38 12/21/17 11:38 12/21/17 11:38 12/21/17 11:38 General appearance: Present: A&O X 2, no acute distress Exam: Constitutional: Vitals as noted. In no Distress. Morbid obesity Respiratory: Clear to auscultation bilaterally. No accessory muscle use, rales, rhonchi or wheezes Cardiovascular : RRR, +S1, +S2. no murmur, gallop, rubs. No chest wall tenderness, pulses palpable and symmetrical in UE/LE. 1+ edema, no cyanosis. no calf tenderness. GI/Abdominal : Soft, Obese, Non-tender, Non-distended, normal bowel sounds, no peritoneal signs. no orgenomegaly, hernia or mass appreciated. Neurological: AO X2, CN II-XII grossly intact, motor and sensory exam Skin: No open wound present. No skin rash noted. Pych: AOx3. - Patient Status Disposition: Home, Self-Care Condition: Fair - Discharge Instructions Follow Up With: Jay Valenzuela DO [Primary Care Provider] - - Diet and Activity Activity: resume usual activities as tolerated
--- NOTE | 2017-12-21 14:38 | Nephrology Progress Note ---
Date of Encounter: 12/21/17 Time of Encounter: 14:38 - Assessment and Plan (1) TAMEKA (acute kidney injury) Current Visit: No Status: Acute TAMEKA dependet HD, is getting HD 3 times a week. ID requested line holiday, which she has had. IR to place temp line today since final cultures wont result until 12/24/17. Will plan for a tunneled line after 12/24/17, so patient can be discharged. Will plan for HD today after line placement. (2) Acute and chronic respiratory failure with hypercapnia Current Visit: No Status: Acute Per primary. (3) Hypokalemia Current Visit: Yes Status: Acute Corrected, K is 3.9 today. (4) Elevated troponin Current Visit: Yes Status: Acute As per primary. (5) Bacteremia Current Visit: Yes Status: Acute see above Subjective Principal diagnosis: fever/lethargic Interval history: Pt seen an examined is feeling good today, awaiting temporary line from IR. Objective - Vital Signs Vital signs: Vital Signs Temp Pulse Resp BP Pulse Ox 12/21/17 11:38 98.0 F 60 20 162/78 99 12/21/17 07:52 97.8 F 59 18 160/78 96 12/21/17 07:42 16 96 12/21/17 05:03 98.0 F 90 16 98/67 95 12/20/17 23:43 97.8 F 59 16 128/67 100 12/20/17 20:34 14 100 12/20/17 18:35 98.3 F 55 16 136/84 96 12/20/17 15:32 97.6 F 62 17 155/78 100 Intake and Output 12/20/17 12/21/17 12/21/17 23:59 07:59 15:59 Intake Total 100 / 100 Balance 100 / 100 Intake: Oral 100 / 100 Other: Blood Glucose* 143 152 144 - General Appearance General appearance: Present: well-developed, well-nourished EENT: Present: ATNC, hearing intact, vision intact Neck: Present: supple Respiratory: Present: clear Cardiology: Present: no edema, normal S1, normal S2 Gastrointestinal: Present: normoactive bowel sounds, no tenderness, no guarding Integumentary: Present: no rash, warm and dry Neurologic: Present: alert and oriented x3 Musculoskeletal: Present: no deformities Psychiatric: Present: mood/affect appropriate, cooperative - Lab 12/21/17 10:21 12/21/17 10:21 Most recent lab results Calcium 9.1 mg/dL (8.6-10.3) 12/21/17 10:21 Phosphorus 2.4 mg/dL (2.7-4.5) L 12/15/17 07:27 Magnesium 1.3 mg/dL (1.6-2.6) L 12/15/17 07:27 Urine Creatinine 146 mg/dL 12/15/17 08:07 Ur Total Protein 24 Hr 3207 mg/day (50-80) H 12/13/17 09:00 Urine Sodium 58.9 mEq/L 12/20/17 01:13 EST Urine Total Protein 1218 mg/dL (1-14) H 12/15/17 08:07 Consult Discharge Plan - Plan Instructions: Sepsis (DC), Sepsis (GEN) Referrals: Jay Valenzuela DO [Primary Care Provider] - 12/28/17 1:00 pm
[2017-12-21] MEDS ORDERED: Heparin 1,000 UNITS/500 mL 500 ML ONE (15:26)
[2017-12-21] MEDS ORDERED: *HR* Midazolam HCl 2 MG/2 ML VIAL IVP ONE (15:56)
[2017-12-21] MEDS ORDERED: *HR* FentaNYL (PF) 100 MCG/2 ML VIAL IVP ONE (15:56)
[2017-12-21] MEDS ORDERED: CeFAZolin Premix DUPLEX 2,000 MG/50 ML BAG IVPB ONE (15:56)
[2017-12-21] MEDS ORDERED: *HR* Heparin 5,000 UNIT/ML VIAL ONE (16:30)
--- NOTE | 2017-12-21 16:30 | IR Procedure Note ---
Date of procedure: 12/21/17 Consent Obtained: Written consent Timeout: Correct patient and procedure verified, Correct site verified, Time out performed, Skin prep completed Local anesthetic: Lidocaine 1% Indications: Renal insufficiency, in need of tunneled cath. Recent removal. Procedure Performed: Tunneled HD cath Was there an speech correction assistant present: No Site/Technique: LIJV access,given recent removal from right. Results/Findings: D/c with mid level Neph/ID, ok for tunneled based on condition/blood cx rs Estimated blood loss (cc): 2 Complications: None; Tolerated procedure well Post Procedure Treatment Plan: Monitoring in pts room Specimen: n/a
[2017-12-21] MEDS ORDERED: Vancomycin 500 MG in 0.9 % Sodium Chloride Mini Bag 100 ML IVPB ONE ×2 (17:06→20:00)
[2017-12-21 21:08] VITALS: BP 151/78
[2017-12-21] MEDS: Famotidine 20 MG TABLET PO SCH (21:28)
[2017-12-21] MEDS ORDERED: Aminoglycoside Consult 1 EACH MC ONE (21:39)
== END 2017-12-21 21:40 | disposition home or self-care (01) | DRG 286 ==
LOC: SUATTDRO → 3ANU 07:13 → EMEROOARM 07:13 → 3ANU 10:24 → 2ANU 11:53 → 3BNU 12-18 14:25
PROVIDERS: ADMIT Internal Medicine; ATTEND Internal Medicine
PROC: IRPERMA (2017-12-21 12:00)

== ENCOUNTER 2018-03-02 06:36 | Inpatient (IN) ==
[2018-03-02 07:41] LABS: Bilirubin,Urine Negative (Negative); Blood,Urine Negative (Negative); Color,Urine Yellow (Yellow); Glucose,Urine (UA) 100 mg/dL (Normal); Ketones,Urine Negative (Negative); Leukocyte Esterase,Urine Small (Negative); Nitrite,Urine Negative (Negative); Protein,Urine >=300 mg/dL (Neg-Trace); Specific Gravity,Urine 1.009 (1.010-1.025); Urobilinogen,Urine Normal (Normal)
[2018-03-02 07:44] LABS: Bacteria,Urine None Seen per hpf (None-Few); Hyaline Casts,Urine None Seen per lpf (None-Few); RBC,Urine 0-3 per hpf (0-3); Squamous Epithelial Cell,Urine Few per lpf (None-Few); WBC,Urine 30-50 per hpf (0-3)
[2018-03-02 07:51] LABS: Clarity,Urine Hazy (Clear)
[2018-03-02 08:07] LABS: Basophils # 0.1 K/mcL (0.0-0.2); Basophils % 0.4 %; Eosinophils # 0.1 K/mcL (0.0-0.6); Eosinophils % 0.8 %; Hematocrit 37.6 % (35.3-44.9); Hemoglobin 12.3 g/dL (11.5-15.4); Immature Granulocytes % 0.5 % (0-4); Lymphocytes # 1.2 K/mcL (0.6-4.6); Lymphocytes % 7.2 %; Mean Corpuscular HGB Conc 32.7 g/dL (31.6-35.5); Mean Corpuscular Hemoglobin 27.9 pg (28.0-33.3); Mean Corpuscular Volume 85.3 fL (83.0-100.0); Mean Platelet Volume 8.9 fL (9.4-12.4); Monocytes # 1.4 K/mcL (0.0-1.3); Monocytes % 8.3 %; Neutrophils # 13.7 K/mcL (1.6-8.9); Platelet Count 177 K/mcL (140-400); Red Blood Count 4.41 M/mcL (3.82-4.97); Segmented Neutrophils % 82.8 %
[2018-03-02 08:11] LABS: Renal Epithelial Cells,Urine Few per hpf (None-Few); Transitional Epi Cells,Urine Few per hpf (None-Few)
[2018-03-02 08:12] LABS: Yeast,Urine Few per hpf (None Seen)
[2018-03-02 08:17] LABS: INR 1.1; Prothrombin Time 12.1 Seconds (9.4-12.1)
[2018-03-02 08:19] LABS: Activated Partial Thrombo Time 32.1 Seconds (26.0-36.0)
--- NOTE | 2018-03-02 08:28 | Emergency Department Note ---
Disposition Clinical Impression: Acute right hip pain, Bacteriuria Leukocytosis Qualifiers: Leukocytosis type: unspecified Qualified Code(s): D72.829 - Elevated white b lood cell count, unspecified Disposition: Admitted As Inpatient Condition: Fair General Adult HPI - General Chief complaint: ED Extremity Problem,Nontraumatic Stated complaint: Right Hip Pain Time Seen by Provider: 03/02/18 06:41 Source: patient, family Mode of arrival: private vehicle Limitations: no limitations Nursing Notes Reviewed: Yes Vital Signs Reviewed: Yes - History of Present Illness HPI Narrative: Patient presents to the ER with her daughter for evaluation of right hip pain. Onset three days ago, getting progressively worse. She denies history of s imilar. No recent trauma, new activities or new shoes. She points to the Right SI joint as the site of pain. It radiates down the butt, thigh, to the knee. Worse with movement. No fever, nausea, vomiting, urinary or bowel complaints or dysfunction. Pt Subjective Complaint: Pain in right hip Onset (ago): day(s) (3) Location: buttocks, right, lower extremity Radiation: distal Pain Severity: moderate Pain Scale: 4 Quality: stabbing, aching, sharp Consistency: constant Improves with: nothing Worsens with: movement Associated symptoms: Denies: confusion, chest pain, cough, diaphoresis, headaches, loss of appetite, malaise, nausea/vomiting, rash, seizure, shortness of breath, syncope, weakness Treatments Prior to Arrival: other (Home dose of pain meds) - Related Data Home Medications Medication Instructions Recorded Confirmed ALPRAZolam [Xanax 1 MG Tablet] 1 mg PO BID 04/15/17 03/02/18 Clopidogrel [Plavix] 75 mg PO DAILY 04/15/17 03/02/18 DULoxetine [Cymbalta] 30 mg PO BID 04/15/17 03/02/18 Famotidine [Heartburn Prevention] 20 mg PO BID 04/15/17 03/02/18 risperiDONE [Risperidone] 1 mg PO HS 04/15/17 03/02/18 Ranolazine [Ranexa] 500 mg PO BID 07/23/17 03/02/18 Rosuvastatin [Crestor] 40 mg PO QPM 07/23/17 03/02/18 Budesonide/Formoterol 160/4.5 2 puff IH BIDR 09/28/17 03/02/18 [Symbicort 160/4.5] HYDROcodone/Acet 5/325 mg [[place] 1 tab PO BID PRN 09/28/17 03/02/18 5-325 mg] Tiotropium [Spiriva] 1 puff IH DAILY 09/28/17 03/02/18 Aspirin [Lo-Dose Aspirin EC] 81 mg PO DAILY 12/15/17 03/02/18 Insulin Regular U-500 [HumuLIN R 70 unit SQ TID 12/15/17 03/02/18 U-500] NIFEdipine [Nifedipine ER] 90 mg PO DAILY 12/15/17 03/02/18 Sevelamer [Renvela] 800 mg PO TID 12/15/17 03/02/18 Trazodone HCl 100 mg PO HS 12/15/17 03/02/18 Fenofibrate Nanocrystallized 160 mg PO DAILY 03/02/18 03/02/18 [Fenofibrate] Furosemide [Lasix] 20 mg PO DAILY 03/02/18 03/02/18 Previous Rx's Medication Instructions Recorded Hydralazine HCl 100 mg PO TID #90 tablet 10/04/17 Carvedilol [Coreg] 25 mg PO BIDWM 30 Days #30 tablet 11/21/17 cloNIDine HCl [CloNIDine HCl] 0.1 mg PO TID 30 Days #90 tablet 11/21/17 metOLazone [Zaroxolyn] 5 mg PO DAILY@0730 30 Days #30 11/21/17 tablet Albuterol Sulfate [Albuterol 2 puff IH Q6H PRN inhaler 12/21/17 Inhaler] Allergies Allergy/AdvReac Type Severity Reaction Status Date / Time morphine Allergy Hallucinati Verified 03/02/18 06:36 ng Sulfa (Sulfonamide Allergy Rash Verified 03/02/18 06:36 Antibiotics) All systems ED: reviewed and negative except as stated. Review of Systems: As Per HPI Constitutional: Denies: fever, chills, weakness, weight change, night sweats Cardiovascular: Denies: chest pain, palpitations Respiratory: Denies: dyspnea Gastrointestinal: Denies: abdominal pain, nausea, vomiting, diarrhea, constipation Genitourinary: Denies: urgency, dysuria, frequency, hematuria, discharge Musculoskeletal: Reports: as per HPI, back pain, arthralgia. Denies: neck pain, joint swelling, myalgia Integumentary: Denies: rash, lesions Neurological: Denies: headache, weakness, numbness, paresthesias Hematological/Lymphatic: Denies: easy bleeding, easy bruising Past Medical History - Past Medical History Attestation: Yes The following information was validated with the patient. Source: patient, obtained from family Medical history: Reports: arthritis, CHF, COPD, diabetes, GERD, hyperlipidemia, hypertension, RA, renal disease Surgical history: Reports: angioplasty/stent, appendectomy, , cataract Psychiatric history: Reports: anxiety, bipolar - Social History Smoking Status: Current every day smoker Smokeless Tobacco Status: No Alcohol use: Reports: none Drug use: Reports: none Physical Exam - General Limitations: no limitations General appearance: alert, in no apparent distress - Head Head exam: atraumatic, normocephalic, normal inspection - Eye Eye exam: Present: normal appearance, PERRL. Absent: scleral icterus, conjunctival injection, periorbital swelling - ENT ENT exam: mucous membranes moist - Neck Neck exam: Present: normal inspection, full ROM, trachea midline - Chest Chest inspection: Present: normal inspection, other (no redness around catheter.). Absent: tenderness, rash - Respiratory Respiratory exam: Present: normal lung sounds bilaterally. Absent: respiratory distress - Cardiovascular Cardiovascular exam: Present: regular rate, normal rhythm - Abdominal Exam Abdominal exam: Present: soft, Non-Tender. Absent: distention, guarding, rebound, rigidity, mass - Extremities Exam Extremities exam: Present: tenderness, normal capillary refill, pedal edema (bilateral - feet to proximal tib/fib, Right worse than Left in the leg, feet symmetrically edematous.). Absent: joint swelling, calf tenderness - Expanded Lower Extremity Exam Hip/Pelvis exam: Present: normal inspection. Absent: full ROM (ROM of right hip decreased due to pain in the Right SI joint with movement of the hip - mild pain with passive flexion, significant pain with active ROM - all directions.) Upper leg exam: Present: normal inspection. Absent: tenderness, swelling Knee exam: Present: full ROM, knee extension intact. Absent: tenderness, swelling, erythema Lower leg exam: Present: swelling, Achilles tendon intact. Absent: tenderness, erythema, Homans' sign Ankle exam: Present: swelling. Absent: tenderness Foot/toe exam: Present: swelling. Absent: tenderness Neurovascular/Tendon exam: Present: normal capillary refill, normal fine/light touch. Absent: pulse deficit, motor deficit, sensory deficit, tendon deficit, extremity cold to touch, pallor, foot drop, significant pain with passive ROM of distal joint Gait: not tested/not observed - Back Exam Back exam: Present: normal inspection - Neurological Exam Neurological exam: Present: alert, oriented X3, CN II-XII intact - Psychiatric Psychiatric exam: Present: normal affect, normal mood - Skin Skin exam: Present: warm, dry, intact, normal color Course Course Narrative: Patient has atraumatic right SI joint pain that seems to be consistent with sciatica. She describes having chills yesterday, but no fever, malaise, nausea, vomiting, weakness, abdominal pain, bowel or bladder symptoms or paraesthesias. She had MRSA bacteremia in early December. She recovered fully from this. She has CKD and was supposed to go to dialysis this AM but the pain was too significant and family had to help her get into car. Thus she was brought here for evaluation and treatment. Given patient's c/o chills, recent MRSA bacteremia, and multiple co-morbidities, we are concerned that she may have septic arthritis. Labs and meds ordered. Labs show leukocytosis w/ elevated PMN's, renal failure and bacteriuria. Ortho consulted. IR consulted. IR concerned about joint aspiration as pt is on Plavix. Discussed this with Dr. López, Dr. Tristan and with the patient. Risk vs benefit discussed. Will proceed with joint aspiration. CT with IV contrast requested by IR; to assess amount of fluid, signs of inflammation. Patient due for dialysis this AM. She will need to be admitted for suspected infection. Will arrange for dialysis to be done once pt admitted. Delay in availability of specified room to perform aspiration. Dr. Tristan recommends starting ABX. Hx of MRSA in blood. Vanc started. Hospitalist spoke with Dr. Tristan about the patient. She has been accepted for admission. - Consultations Consultation #1: Case discussed with Dr. López. He requests that we have IR due a joint aspiration urgently. Plan discussed with Dr. Tristan. He has had face to face time with the patient and agrees with the assessment and plan. He also recomme nds adding a CT of the right hip to eval for occult Fx. Time: :22 Vital Signs Temperature 98.5 F 03/02/18 06:38 Pulse Rate 73 03/02/18 06:38 Respiratory Rate 18 03/02/18 06:38 Blood Pressure 142/69 03/02/18 06:38 O2 Sat by Pulse Oximetry 95 03/02/18 06:38 Temperature 99.4 F 03/03/18 04:23 Pulse Rate 72 03/03/18 04:23 Respiratory Rate 18 03/03/18 04:23 Blood Pressure 138/51 03/03/18 04:23 O2 Sat by Pulse Oximetry 96 03/03/18 04:23 Oxygen Delivery Oxygen Delivery Nasal Cannula Medical Decision Making - Medical Records Medical records reviewed: Yes I reviewed the patient's medical records. - Lab Data Lab results reviewed: Yes I reviewed the patient's lab results. Lab results narrative: Laboratory Last Values WBC 21.4 K/mcL (4.3-11.1) H 03/03/18 06:37 RBC 4.19 M/mcL (3.82-4.97) 03/03/18 06:37 Hgb 11.7 g/dL (11.5-15.4) 03/03/18 06:37 Hct 35.4 % (35.3-44.9) 03/03/18 06:37 MCV 84.5 fL (83.0-100.0) 03/03/18 06:37 MCH 27.9 pg (28.0-33.3) L 03/03/18 06:37 MCHC 33.1 g/dL (31.6-35.5) 03/03/18 06:37 RDW 15.8 % (11.5-14.5) H 03/03/18 06:37 Plt Count 170 K/mcL (140-400) 03/03/18 06:37 MPV 9.0 fL (9.4-12.4) L 03/03/18 06:37 Immature Gran % 0.7 % (0-4) 03/03/18 06:37 Seg Neutrophils % 92.5 % 03/03/18 06:37 Lymphocytes % 2.5 % 03/03/18 06:37 Monocytes % 3.9 % 03/03/18 06:37 Eosinophils % 0.2 % 03/03/18 06:37 Basophils % 0.2 % 03/03/18 06:37 Neutrophils # 19.8 K/mcL (1.6-8.9) H 03/03/18 06:37 Lymphocytes # 0.5 K/mcL (0.6-4.6) L 03/03/18 06:37 Monocytes # 0.8 K/mcL (0.0-1.3) 03/03/18 06:37 Eosinophils # 0.1 K/mcL (0.0-0.6) 03/03/18 06:37 Basophils # 0.1 K/mcL (0.0-0.2) 03/03/18 06:37 ESR 100 mm/hr (0-15) H 03/02/18 09:06 PT 12.1 Seconds (9.4-12.1) 03/02/18 07:55 INR 1.1 03/02/18 07:55 APTT 32.1 Seconds (26.0-36.0) 03/02/18 07:55 Sodium 126 mEq/L (136-145) L 03/02/18 07:55 Potassium 3.8 mEq/L (3.5-5.1) 03/02/18 07:55 Chloride 90 mEq/L (98-107) L 03/02/18 07:55 Carbon Dioxide 24 mEq/L (23-29) 03/02/18 07:55 BUN 52 mg/dL (8-23) H 03/02/18 07:55 Creatinine 5.66 mg/dL (0.60-1.20) H 03/02/18 07:55 Est GFR ( Amer) 9 (> 60) L 03/02/18 07:55 Est GFR (Non-Af Amer) 7 (> 60) L 03/02/18 07:55 BUN/Creatinine Ratio 9 (6-26) 03/02/18 07:55 Glucose 188 mg/dL (70-105) H 03/02/18 07:55 POC Glucose 190 mg/dL (70-99) H 03/02/18 20:11 Est Mean Plasma Glucose 128 mg/dl 03/02/18 07:50 Hemoglobin A1c 6.1 % (-5.6) H 03/02/18 07:50 Calculated Osmolality 281 (280-300) 03/02/18 07:55 Lactic Acid 0.5 mmol/L (0.5-2.2) 03/02/18 09:06 Calcium 9.7 mg/dL (8.6-10.3) 03/02/18 07:55 C-Reactive Protein 86 mg/L (Less than 10) H 03/02/18 07:55 Urine Color Yellow (Yellow) 03/02/18 07:25 Urine Clarity Hazy (Clear) A 03/02/18 07:25 Urine pH 6.0 pH Units (5.0-8.0) 03/02/18 07:25 Ur Specific [place] 1.009 (1.010-1.025) L 03/02/18 07:25 Urine Protein >=300 mg/dL (Neg-Trace) H 03/02/18 07:25 Urine Glucose (UA) 100 mg/dL (Normal) H 03/02/18 07:25 Urine Ketones Negative mg/dL (Negative) 03/02/18 07:25 Urine Blood Negative (Negative) 03/02/18 07:25 Urine Nitrite Negative (Negative) 03/02/18 07:25 Urine Bilirubin Negative (Negative) 03/02/18 07:25 Urine Urobilinogen Normal mg/dL (Normal) 03/02/18 07:25 Ur Leukocyte Esterase Small (Negative) H 03/02/18 07:25 Urine Microscopic RBC 0-3 per hpf (0-3) 03/02/18 07:25 Urine Microscopic WBC 30-50 per hpf (0-3) H 03/02/18 07:25 Ur Squamous Epith Cells Few per lpf (None-Few) 03/02/18 07:25 Ur Transition Epith Cell Few per hpf (None-Few) 03/02/18 07:25 Ur Renal Epithelial Cell Few per hpf (None-Few) 03/02/18 07:25 Urine Bacteria None Seen per hpf (None-Few) 03/02/18 07:25 Hyaline Casts None Seen per lpf (None-Few) 03/02/18 07:25 Urine Yeast Few per hpf (None Seen) H 03/02/18 07:25 Ur Culture Indicated? YES (NO) A 03/02/18 07:25 Synovial Source right hip 03/02/18 14:47 Synovial Color Colorless (Straw) 03/02/18 14:47 Synovial Appearance Clear (Clear-Hazy) 03/02/18 14:47 Synovial Volume 1.0 mL 03/02/18 14:47 Synovial RBC TNP 03/02/18 14:47 Synovial Tot Nuc Cell TNP 03/02/18 14:47 Synovial Band Neuts TNP 03/02/18 14:47 Synovial Basophils TNP 03/02/18 14:47 Synovial Eosinophils TNP 03/02/18 14:47 Synovial Seg Neuts % TNP 03/02/18 14:47 Synovial Lymphocytes % TNP 03/02/18 14:47 Synovial Monocytes % TNP 03/02/18 14:47 Synovial Other Cells % TNP 03/02/18 14:47 A. baumannii (PCR) Not Detected (Not Detect) 03/02/18 07:55 Kerry albicans (PCR) Not Detected (Not Detect) 03/02/18 07:55 C. glabrata (PCR) Not Detected (Not Detect) 03/02/18 07:55 C. krusei (PCR) Not Detected (Not Detect) 03/02/18 07:55 C. parapsilosis (PCR) Not Detected (Not Detect) 03/02/18 07:55 C. tropicalis (PCR) Not Detected (Not Detect) 03/02/18 07:55 Enterobacteriac sp PCR Not Detected (Not Detect) 03/02/18 07:55 E. cloacae complex PCR Not Detected (Not Detect) 03/02/18 07:55 Enterococcus sp PCR DETECTED (Not Detect) A 03/02/18 07:55 E. coli (PCR) Not Detected (Not Detect) 03/02/18 07:55 H. influenzae (PCR) Not Detected (Not Detect) 03/02/18 07:55 Hep Bs Antigen Nonreactive (Nonreactive) 03/02/18 16:28 Hep Bs Antibody < 3.10 mIU/mL (10.00-) L 03/02/18 16:28 Klebsiella oxytoca PCR Not Detected (Not Detect) 03/02/18 07:55 Klebsiella pneumoniae Not Detected (Not Detect) 03/02/18 07:55 List. monocytogenes PCR Not Detected (Not Detect) 03/02/18 07:55 N. meningitidis (PCR) Not Detected (Not Detect) 03/02/18 07:55 Proteus species (PCR) Not Detected (Not Detect) 03/02/18 07:55 Serratia marcescens PCR Not Detected (Not Detect) 03/02/18 07:55 Staphylococcus sp PCR Not Detected (Not Detect) 03/02/18 07:55 Staph aureus (PCR) Not Detected (Not Detect) 03/02/18 07:55 mecA-Methicil Res Gene N/A (Not Detect) 03/02/18 07:55 Streptococcus sp PCR Not Detected (Not Detect) 03/02/18 07:55 Group A Strep DNA Not Detected (Not Detect) 03/02/18 07:55 Group B Strep (PCR) Not Detected (Not Detect) 03/02/18 07:55 Strep pneumoniae (PCR) Not Detected (Not Detect) 03/02/18 07:55 P. aeruginosa (PCR) Not Detected (Not Detect) 03/02/18 07:55 Sil/B-Vanco Res Genes Not Detected (Not Detect) 03/02/18 07:55 KPC (blaKPC) Detect PCR N/A (Not Detect) 03/02/18 07:55 Result diagrams: 03/02/18 07:55 03/02/18 07:55 Lab Results 03/02/18 03/02/18 03/02/18 Range/Units 07:25 07:50 07:55 WBC 16.6 H (4.3-11.1) K/mcL RBC 4.41 (3.82-4.97) M/mcL Hgb 12.3 (11.5-15.4) g/dL Hct 37.6 (35.3-44.9) % MCV 85.3 (83.0-100.0) fL MCH 27.9 L (28.0-33.3) pg MCHC 32.7 (31.6-35.5) g/dL RDW 16.0 H (11.5-14.5) % Plt Count 177 (140-400) K/mcL MPV 8.9 L (9.4-12.4) fL Immature Gran % 0.5 (0-4) % Seg Neutrophils % 82.8 % Lymphocytes % 7.2 % Monocytes % 8.3 % Eosinophils % 0.8 % Basophils % 0.4 % Neutrophils # 13.7 H (1.6-8.9) K/mcL Lymphocytes # 1.2 (0.6-4.6) K/mcL Monocytes # 1.4 H (0.0-1.3) K/mcL Eosinophils # 0.1 (0.0-0.6) K/mcL Basophils # 0.1 (0.0-0.2) K/mcL ESR (0-15) mm/hr PT (9.4-12.1) Seconds INR APTT (26.0-36.0) Seconds Sodium (136-145) mEq/L Potassium (3.5-5.1) mEq/L Chloride (98-107) mEq/L Carbon Dioxide (23-29) mEq/L BUN (8-23) mg/dL Creatinine (0.60-1.20) mg/dL Est GFR ( Amer) (> 60) Est GFR (Non-Af Amer) (> 60) BUN/Creatinine Ratio (6-26) Glucose (70-105) mg/dL Est Mean Plasma Glucose 128 mg/dl Hemoglobin A1c 6.1 H ( - 5.6) % Calculated Osmolality (280-300) Lactic Acid (0.5-2.2) mmol/L Calcium (8.6-10.3) mg/dL C-Reactive Protein (Less than 10) mg/L Urine Color Yellow (Yellow) Urine Clarity Hazy A (Clear) Urine pH 6.0 (5.0-8.0) pH Units Ur Specific [place] 1.009 L (1.010-1.025) Urine Protein >=300 H (Neg-Trace) mg/dL Urine Glucose (UA) 100 H (Normal) mg/dL Urine Ketones Negative (Negative) mg/dL Urine Blood Negative (Negative) Urine Nitrite Negative (Negative) Urine Bilirubin Negative (Negative) Urine Urobilinogen Normal (Normal) mg/dL Ur Leukocyte Esterase Small H (Negative) Urine Microscopic RBC 0-3 (0-3) per hpf Urine Microscopic WBC 30-50 H (0-3) per hpf Ur Squamous Epith Cells Few (None-Few) per lpf Ur Transition Epith Cell Few (None-Few) per hpf Ur Renal Epithelial Cell Few (None-Few) per hpf Urine Bacteria None Seen (None-Few) per hpf Hyaline Casts None Seen (None-Few) per lpf Urine Yeast Few H (None Seen) per hpf Ur Culture Indicated? YES A (NO) Synovial Source Synovial Color (Straw) Synovial Appearance (Clear-Hazy) Synovial Volume mL Synovial RBC Synovial Tot Nuc Cell Synovial Band Neuts Synovial Basophils Synovial Eosinophils Synovial Seg Neuts % Synovial Lymphocytes % Synovial Monocytes % Synovial Other Cells % A. baumannii (PCR) (Not Detect) Kerry albicans (PCR) (Not Detect) C. glabrata (PCR) (Not Detect) C. krusei (PCR) (Not Detect) C. parapsilosis (PCR) (Not Detect) C. tropicalis (PCR) (Not Detect) Enterobacteriac sp PCR (Not Detect) E. cloacae complex PCR (Not Detect) Enterococcus sp PCR (Not Detect) E. coli (PCR) (Not Detect) H. influenzae (PCR) (Not Detect) Klebsiella oxytoca PCR (Not Detect) Klebsiella pneumoniae (Not Detect) List. monocytogenes PCR (Not Detect) N. meningitidis (PCR) (Not Detect) Proteus species (PCR) (Not Detect) Serratia marcescens PCR (Not Detect) Staphylococcus sp PCR (Not Detect) Staph aureus (PCR) (Not Detect) mecA-Methicil Res Gene (Not Detect) Streptococcus sp PCR (Not Detect) Group A Strep DNA (Not Detect) Group B Strep (PCR) (Not Detect) Strep pneumoniae (PCR) (Not Detect) P. aeruginosa (PCR) (Not Detect) Sil/B-Vanco Res Genes (Not Detect) KPC (blaKPC) Detect PCR (Not Detect) 03/02/18 03/02/18 03/02/18 Range/Units 07:55 07:55 07:55 WBC (4.3-11.1) K/mcL RBC (3.82-4.97) M/mcL Hgb (11.5-15.4) g/dL Hct (35.3-44.9) % MCV (83.0-100.0) fL MCH (28.0-33.3) pg MCHC (31.6-35.5) g/dL RDW (11.5-14.5) % Plt Count (140-400) K/mcL MPV (9.4-12.4) fL Immature Gran % (0-4) % Seg Neutrophils % % Lymphocytes % % Monocytes % % Eosinophils % % Basophils % % Neutrophils # (1.6-8.9) K/mcL Lymphocytes # (0.6-4.6) K/mcL Monocytes # (0.0-1.3) K/mcL Eosinophils # (0.0-0.6) K/mcL Basophils # (0.0-0.2) K/mcL ESR (0-15) mm/hr PT 12.1 (9.4-12.1) Seconds INR 1.1 APTT 32.1 (26.0-36.0) Seconds Sodium 126 L (136-145) mEq/L Potassium 3.8 (3.5-5.1) mEq/L Chloride 90 L (98-107) mEq/L Carbon Dioxide 24 (23-29) mEq/L BUN 52 H (8-23) mg/dL Creatinine 5.66 H (0.60-1.20) mg/dL Est GFR ( Amer) 9 L (> 60) Est GFR (Non-Af Amer) 7 L (> 60) BUN/Creatinine Ratio 9 (6-26) Glucose 188 H (70-105) mg/dL Est Mean Plasma Glucose mg/dl Hemoglobin A1c ( - 5.6) % Calculated Osmolality 281 (280-300) Lactic Acid (0.5-2.2) mmol/L Calcium 9.7 (8.6-10.3) mg/dL C-Reactive Protein 86 H (Less than 10) mg/L Urine Color (Yellow) Urine Clarity (Clear) Urine pH (5.0-8.0) pH Units Ur Specific [place] (1.010-1.025) Urine Protein (Neg-Trace) mg/dL Urine Glucose (UA) (Normal) mg/dL Urine Ketones (Negative) mg/dL Urine Blood (Negative) Urine Nitrite (Negative) Urine Bilirubin (Negative) Urine Urobilinogen (Normal) mg/dL Ur Leukocyte Esterase (Negative) Urine Microscopic RBC (0-3) per hpf Urine Microscopic WBC (0-3) per hpf Ur Squamous Epith Cells (None-Few) per lpf Ur Transition Epith Cell (None-Few) per hpf Ur Renal Epithelial Cell (None-Few) per hpf Urine Bacteria (None-Few) per hpf Hyaline Casts (None-Few) per lpf Urine Yeast (None Seen) per hpf Ur Culture Indicated? (NO) Synovial Source Synovial Color (Straw) Synovial Appearance (Clear-Hazy) Synovial Volume mL Synovial RBC Synovial Tot Nuc Cell Synovial Band Neuts Synovial Basophils Synovial Eosinophils Synovial Seg Neuts % Synovial Lymphocytes % Synovial Monocytes % Synovial Other Cells % A. baumannii (PCR) Not Detected (Not Detect) Kerry albicans (PCR) Not Detected (Not Detect) C. glabrata (PCR) Not Detected (Not Detect) C. krusei (PCR) Not Detected (Not Detect) C. parapsilosis (PCR) Not Detected (Not Detect) C. tropicalis (PCR) Not Detected (Not Detect) Enterobacteriac sp PCR Not Detected (Not Detect) E. cloacae complex PCR Not Detected (Not Detect) Enterococcus sp PCR DETECTED A (Not Detect) E. coli (PCR) Not Detected (Not Detect) H. influenzae (PCR) Not Detected (Not Detect) Klebsiella oxytoca PCR Not Detected (Not Detect) Klebsiella pneumoniae Not Detected (Not Detect) List. monocytogenes PCR Not Detected (Not Detect) N. meningitidis (PCR) Not Detected (Not Detect) Proteus species (PCR) Not Detected (Not Detect) Serratia marcescens PCR Not Detected (Not Detect) Staphylococcus sp PCR Not Detected (Not Detect) Staph aureus (PCR) Not Detected (Not Detect) mecA-Methicil Res Gene N/A (Not Detect) Streptococcus sp PCR Not Detected (Not Detect) Group A Strep DNA Not Detected (Not Detect) Group B Strep (PCR) Not Detected (Not Detect) Strep pneumoniae (PCR) Not Detected (Not Detect) P. aeruginosa (PCR) Not Detected (Not Detect) Sil/B-Vanco Res Genes Not Detected (Not Detect) KPC (blaKPC) Detect PCR N/A (Not Detect) 03/02/18 03/02/18 03/02/18 Range/Units 09:06 09:06 14:47 WBC (4.3-11.1) K/mcL RBC (3.82-4.97) M/mcL Hgb (11.5-15.4) g/dL Hct (35.3-44.9) % MCV (83.0-100.0) fL MCH (28.0-33.3) pg MCHC (31.6-35.5) g/dL RDW (11.5-14.5) % Plt Count (140-400) K/mcL MPV (9.4-12.4) fL Immature Gran % (0-4) % Seg Neutrophils % % Lymphocytes % % Monocytes % % Eosinophils % % Basophils % % Neutrophils # (1.6-8.9) K/mcL Lymphocytes # (0.6-4.6) K/mcL Monocytes # (0.0-1.3) K/mcL Eosinophils # (0.0-0.6) K/mcL Basophils # (0.0-0.2) K/mcL ESR 100 H (0-15) mm/hr PT (9.4-12.1) Seconds INR APTT (26.0-36.0) Seconds Sodium (136-145) mEq/L Potassium (3.5-5.1) mEq/L Chloride (98-107) mEq/L Carbon Dioxide (23-29) mEq/L BUN (8-23) mg/dL Creatinine (0.60-1.20) mg/dL Est GFR ( Amer) (> 60) Est GFR (Non-Af Amer) (> 60) BUN/Creatinine Ratio (6-26) Glucose (70-105) mg/dL Est Mean Plasma Glucose mg/dl Hemoglobin A1c ( - 5.6) % Calculated Osmolality (280-300) Lactic Acid 0.5 (0.5-2.2) mmol/L Calcium (8.6-10.3) mg/dL C-Reactive Protein (Less than 10) mg/L Urine Color (Yellow) Urine Clarity (Clear) Urine pH (5.0-8.0) pH Units Ur Specific Avalon (1.010-1.025) Urine Protein (Neg-Trace) mg/dL Urine Glucose (UA) (Normal) mg/dL Urine Ketones (Negative) mg/dL Urine Blood (Negative) Urine Nitrite (Negative) Urine Bilirubin (Negative) Urine Urobilinogen (Normal) mg/dL Ur Leukocyte Esterase (Negative) Urine Microscopic RBC (0-3) per hpf Urine Microscopic WBC (0-3) per hpf Ur Squamous Epith Cells (None-Few) per lpf Ur Transition Epith Cell (None-Few) per hpf Ur Renal Epithelial Cell (None-Few) per hpf Urine Bacteria (None-Few) per hpf Hyaline Casts (None-Few) per lpf Urine Yeast (None Seen) per hpf Ur Culture Indicated? (NO) Synovial Source right hip Synovial Color Colorless (Straw) Synovial Appearance Clear (Clear-Hazy) Synovial Volume 1.0 mL Synovial RBC TNP Synovial Tot Nuc Cell TNP Synovial Band Neuts TNP Synovial Basophils TNP Synovial Eosinophils TNP Synovial Seg Neuts % TNP Synovial Lymphocytes % TNP Synovial Monocytes % TNP Synovial Other Cells % TNP A. baumannii (PCR) (Not Detect) Kerry albicans (PCR) (Not Detect) C. glabrata (PCR) (Not Detect) C. krusei (PCR) (Not Detect) C. parapsilosis (PCR) (Not Detect) C. tropicalis (PCR) (Not Detect) Enterobacteriac sp PCR (Not Detect) E. cloacae complex PCR (Not Detect) Enterococcus sp PCR (Not Detect) E. coli (PCR) (Not Detect) H. influenzae (PCR) (Not Detect) Klebsiella oxytoca PCR (Not Detect) Klebsiella pneumoniae (Not Detect) List. monocytogenes PCR (Not Detect) N. meningitidis (PCR) (Not Detect) Proteus species (PCR) (Not Detect) Serratia marcescens PCR (Not Detect) Staphylococcus sp PCR (Not Detect) Staph aureus (PCR) (Not Detect) mecA-Methicil Res Gene (Not Detect) Streptococcus sp PCR (Not Detect) Group A Strep DNA (Not Detect) Group B Strep (PCR) (Not Detect) Strep pneumoniae (PCR) (Not Detect) P. aeruginosa (PCR) (Not Detect) Sil/B-Vanco Res Genes (Not Detect) KPC (blaKPC) Detect PCR (Not Detect) - Radiology Data Radiology results reviewed: Yes I reviewed the patient's radiology results. Hip X-Ray 03/02/18 06:58 IMPRESSION: No acute osseous abnormality. [id number] osteoarthritis of the hips. D/ / Dani Kitchen MD / Dani Kitchen MD Interpreting Provider: Dani Kitchen MD Hip CT 03/02/18 09:41 IMPRESSION: 1. No acute fracture or gross dislocation. 2. Cholelithiasis. 3. Mild sigmoid diverticulosis. 4. Minimal degenerative changes at the right hip joint space. 5. Small midline fat containing periumbilical hernia. 6. Atherosclerotic calcification of the abdominal aorta and branch vasculature. D/ / 03/02/2018 12:01:45 Miguel Rodriguez MD / Mireille Corea Interpreting Provider: Miguel Rodriguez MD Attestation Statement - Attestation Attestation: I, Danish Tristan DO have provided [id number] time during the care of this patient. Detailed review the presentation, symptoms, medical history were discussed and reviewed with the advanced practice provider Ellyn Baron PA-C/DINKER. Medical intervention labs and imaging studies were reviewed in detail. See full documentation of physical exam and course of care in the advanced practice provider's note. I agree with the determined course of care, medical intervention and disposition put forth by the advanced practice provider. See below documentation for changes or alterations in documentation.
[2018-03-02 08:30] LABS: Calcium 9.7 mg/dL (8.6-10.3); Potassium 3.8 mEq/L (3.5-5.1)
--- NOTE | 2018-03-02 10:52 | Emergency Department Note ---
Disposition Clinical Impression: Acute right hip pain, Bacteriuria Leukocytosis Qualifiers: Leukocytosis type: unspecified Qualified Code(s): D72.829 - Elevated white b lood cell count, unspecified Disposition: Admitted As Inpatient Condition: Fair Time of Disposition: 15:36 General Adult HPI - General Chief complaint: ED Extremity Problem,Nontraumatic Stated complaint: Right Hip Pain Time Seen by Provider: 03/02/18 06:41 Source: patient, family Mode of arrival: private vehicle Limitations: no limitations - History of Present Illness Location: buttocks, right, lower extremity Pain Scale: 4 Quality: stabbing, aching, sharp Improves with: nothing Worsens with: movement Associated symptoms: Denies: confusion, chest pain, cough, diaphoresis, headaches, loss of appetite, malaise, nausea/vomiting, rash, seizure, shortness of breath, syncope, weakness Treatments Prior to Arrival: other (Home dose of pain meds) - Related Data Home Medications Medication Instructions Recorded Confirmed ALPRAZolam [Xanax 1 MG Tablet] 1 mg PO BID 04/15/17 03/02/18 Clopidogrel [Plavix] 75 mg PO DAILY 04/15/17 03/02/18 DULoxetine [Cymbalta] 30 mg PO BID 04/15/17 03/02/18 Famotidine [Heartburn Prevention] 20 mg PO BID 04/15/17 03/02/18 risperiDONE [Risperidone] 1 mg PO HS 04/15/17 03/02/18 Ranolazine [Ranexa] 500 mg PO BID 07/23/17 03/02/18 Rosuvastatin [Crestor] 40 mg PO QPM 07/23/17 03/02/18 Budesonide/Formoterol 160/4.5 2 puff IH BIDR 09/28/17 03/02/18 [Symbicort 160/4.5] HYDROcodone/Acet 5/325 mg [[place] 1 tab PO BID PRN 09/28/17 03/02/18 5-325 mg] Tiotropium [Spiriva] 1 puff IH DAILY 09/28/17 03/02/18 Aspirin [Lo-Dose Aspirin EC] 81 mg PO DAILY 12/15/17 03/02/18 Insulin Regular U-500 [HumuLIN R 70 unit SQ TID 12/15/17 03/02/18 U-500] NIFEdipine [Nifedipine ER] 90 mg PO DAILY 12/15/17 03/02/18 Sevelamer [Renvela] 800 mg PO TID 12/15/17 03/02/18 Trazodone HCl 100 mg PO HS 12/15/17 03/02/18 Fenofibrate Nanocrystallized 160 mg PO DAILY 03/02/18 03/02/18 [Fenofibrate] Furosemide [Lasix] 20 mg PO DAILY 03/02/18 03/02/18 Previous Rx's Medication Instructions Recorded Hydralazine HCl 100 mg PO TID #90 tablet 10/04/17 Carvedilol [Coreg] 25 mg PO BIDWM 30 Days #30 tablet 11/21/17 cloNIDine HCl [CloNIDine HCl] 0.1 mg PO TID 30 Days #90 tablet 11/21/17 metOLazone [Zaroxolyn] 5 mg PO DAILY@0730 30 Days #30 11/21/17 tablet Albuterol Sulfate [Albuterol 2 puff IH Q6H PRN inhaler 12/21/17 Inhaler] Allergies Allergy/AdvReac Type Severity Reaction Status Date / Time morphine Allergy Hallucinati Verified 03/02/18 06:36 ng Sulfa (Sulfonamide Allergy Rash Verified 03/02/18 06:36 Antibiotics) Constitutional: Denies: fever, chills, weakness, weight change, night sweats Cardiovascular: Denies: chest pain, palpitations Respiratory: Denies: dyspnea Gastrointestinal: Denies: abdominal pain, nausea, vomiting, diarrhea, constipat ion Genitourinary: Denies: urgency, dysuria, frequency, hematuria, discharge Musculoskeletal: Reports: as per HPI, back pain, arthralgia. Denies: neck pain, joint swelling, myalgia Integumentary: Denies: rash, lesions Neurological: Denies: headache, weakness, numbness, paresthesias Hematological/Lymphatic: Denies: easy bleeding, easy bruising Past Medical History - Past Medical History Medical history: Reports: arthritis, CHF, COPD, diabetes, GERD, hyperlipidemia, hypertension, RA, renal disease Surgical history: Reports: angioplasty/stent, appendectomy, , cataract Psychiatric history: Reports: anxiety, bipolar - Social History Smoking Status: Current every day smoker Smokeless Tobacco Status: No Alcohol use: Reports: none Drug use: Reports: none Physical Exam - General Limitations: no limitations General appearance: alert, in no apparent distress Course Vital Signs Temperature 98.5 F 03/02/18 06:38 Pulse Rate 73 03/02/18 06:38 Respiratory Rate 18 03/02/18 06:38 Blood Pressure 142/69 03/02/18 06:38 O2 Sat by Pulse Oximetry 95 03/02/18 06:38 Temperature 100.5 F H 03/02/18 18:28 Pulse Rate 76 03/02/18 18:28 Respiratory Rate 18 03/02/18 18:28 Blood Pressure 130/57 03/02/18 18:28 O2 Sat by Pulse Oximetry 96 03/02/18 18:28 Oxygen Delivery Oxygen Delivery Nasal Cannula Medical Decision Making - Lab Data Result diagrams: 03/02/18 07:55 03/02/18 07:55 Lab Results 03/02/18 03/02/18 03/02/18 Range/Units 07:25 07:50 07:55 WBC 16.6 H (4.3-11.1) K/mcL RBC 4.41 (3.82-4.97) M/mcL Hgb 12.3 (11.5-15.4) g/dL Hct 37.6 (35.3-44.9) % MCV 85.3 (83.0-100.0) fL MCH 27.9 L (28.0-33.3) pg MCHC 32.7 (31.6-35.5) g/dL RDW 16.0 H (11.5-14.5) % Plt Count 177 (140-400) K/mcL MPV 8.9 L (9.4-12.4) fL Immature Gran % 0.5 (0-4) % Seg Neutrophils % 82.8 % Lymphocytes % 7.2 % Monocytes % 8.3 % Eosinophils % 0.8 % Basophils % 0.4 % Neutrophils # 13.7 H (1.6-8.9) K/mcL Lymphocytes # 1.2 (0.6-4.6) K/mcL Monocytes # 1.4 H (0.0-1.3) K/mcL Eosinophils # 0.1 (0.0-0.6) K/mcL Basophils # 0.1 (0.0-0.2) K/mcL ESR (0-15) mm/hr PT (9.4-12.1) Seconds INR APTT (26.0-36.0) Seconds Sodium (136-145) mEq/L Potassium (3.5-5.1) mEq/L Chloride (98-107) mEq/L Carbon Dioxide (23-29) mEq/L BUN (8-23) mg/dL Creatinine (0.60-1.20) mg/dL Est GFR ( Amer) (> 60) Est GFR (Non-Af Amer) (> 60) BUN/Creatinine Ratio (6-26) Glucose (70-105) mg/dL Est Mean Plasma Glucose 128 mg/dl Hemoglobin A1c 6.1 H ( - 5.6) % Calculated Osmolality (280-300) Lactic Acid (0.5-2.2) mmol/L Calcium (8.6-10.3) mg/dL C-Reactive Protein (Less than 10) mg/L Urine Color Yellow (Yellow) Urine Clarity Hazy A (Clear) Urine pH 6.0 (5.0-8.0) pH Units Ur Specific [place] 1.009 L (1.010-1.025) Urine Protein >=300 H (Neg-Trace) mg/dL Urine Glucose (UA) 100 H (Normal) mg/dL Urine Ketones Negative (Negative) mg/dL Urine Blood Negative (Negative) Urine Nitrite Negative (Negative) Urine Bilirubin Negative (Negative) Urine Urobilinogen Normal (Normal) mg/dL Ur Leukocyte Esterase Small H (Negative) Urine Microscopic RBC 0-3 (0-3) per hpf Urine Microscopic WBC 30-50 H (0-3) per hpf Ur Squamous Epith Cells Few (None-Few) per lpf Ur Transition Epith Cell Few (None-Few) per hpf Ur Renal Epithelial Cell Few (None-Few) per hpf Urine Bacteria None Seen (None-Few) per hpf Hyaline Casts None Seen (None-Few) per lpf Urine Yeast Few H (None Seen) per hpf Ur Culture Indicated? YES A (NO) Synovial Source Synovial Color (Straw) Synovial Appearance (Clear-Hazy) Synovial Volume mL Synovial RBC Synovial Tot Nuc Cell Synovial Band Neuts Synovial Basophils Synovial Eosinophils Synovial Seg Neuts % Synovial Lymphocytes % Synovial Monocytes % Synovial Other Cells % 03/02/18 03/02/18 03/02/18 Range/Units 07:55 07:55 09:06 WBC (4.3-11.1) K/mcL RBC (3.82-4.97) M/mcL Hgb (11.5-15.4) g/dL Hct (35.3-44.9) % MCV (83.0-100.0) fL MCH (28.0-33.3) pg MCHC (31.6-35.5) g/dL RDW (11.5-14.5) % Plt Count (140-400) K/mcL MPV (9.4-12.4) fL Immature Gran % (0-4) % Seg Neutrophils % % Lymphocytes % % Monocytes % % Eosinophils % % Basophils % % Neutrophils # (1.6-8.9) K/mcL Lymphocytes # (0.6-4.6) K/mcL Monocytes # (0.0-1.3) K/mcL Eosinophils # (0.0-0.6) K/mcL Basophils # (0.0-0.2) K/mcL ESR 100 H (0-15) mm/hr PT 12.1 (9.4-12.1) Seconds INR 1.1 APTT 32.1 (26.0-36.0) Seconds Sodium 126 L (136-145) mEq/L Potassium 3.8 (3.5-5.1) mEq/L Chloride 90 L (98-107) mEq/L Carbon Dioxide 24 (23-29) mEq/L BUN 52 H (8-23) mg/dL Creatinine 5.66 H (0.60-1.20) mg/dL Est GFR ( Amer) 9 L (> 60) Est GFR (Non-Af Amer) 7 L (> 60) BUN/Creatinine Ratio 9 (6-26) Glucose 188 H (70-105) mg/dL Est Mean Plasma Glucose mg/dl Hemoglobin A1c ( - 5.6) % Calculated Osmolality 281 (280-300) Lactic Acid (0.5-2.2) mmol/L Calcium 9.7 (8.6-10.3) mg/dL C-Reactive Protein 86 H (Less than 10) mg/L Urine Color (Yellow) Urine Clarity (Clear) Urine pH (5.0-8.0) pH Units Ur Specific [place] (1.010-1.025) Urine Protein (Neg-Trace) mg/dL Urine Glucose (UA) (Normal) mg/dL Urine Ketones (Negative) mg/dL Urine Blood (Negative) Urine Nitrite (Negative) Urine Bilirubin (Negative) Urine Urobilinogen (Normal) mg/dL Ur Leukocyte Esterase (Negative) Urine Microscopic RBC (0-3) per hpf Urine Microscopic WBC (0-3) per hpf Ur Squamous Epith Cells (None-Few) per lpf Ur Transition Epith Cell (None-Few) per hpf Ur Renal Epithelial Cell (None-Few) per hpf Urine Bacteria (None-Few) per hpf Hyaline Casts (None-Few) per lpf Urine Yeast (None Seen) per hpf Ur Culture Indicated? (NO) Synovial Source Synovial Color (Straw) Synovial Appearance (Clear-Hazy) Synovial Volume mL Synovial RBC Synovial Tot Nuc Cell Synovial Band Neuts Synovial Basophils Synovial Eosinophils Synovial Seg Neuts % Synovial Lymphocytes % Synovial Monocytes % Synovial Other Cells % 03/02/18 03/02/18 Range/Units 09:06 14:47 WBC (4.3-11.1) K/mcL RBC (3.82-4.97) M/mcL Hgb (11.5-15.4) g/dL Hct (35.3-44.9) % MCV (83.0-100.0) fL MCH (28.0-33.3) pg MCHC (31.6-35.5) g/dL RDW (11.5-14.5) % Plt Count (140-400) K/mcL MPV (9.4-12.4) fL Immature Gran % (0-4) % Seg Neutrophils % % Lymphocytes % % Monocytes % % Eosinophils % % Basophils % % Neutrophils # (1.6-8.9) K/mcL Lymphocytes # (0.6-4.6) K/mcL Monocytes # (0.0-1.3) K/mcL Eosinophils # (0.0-0.6) K/mcL Basophils # (0.0-0.2) K/mcL ESR (0-15) mm/hr PT (9.4-12.1) Seconds INR APTT (26.0-36.0) Seconds Sodium (136-145) mEq/L Potassium (3.5-5.1) mEq/L Chloride (98-107) mEq/L Carbon Dioxide (23-29) mEq/L BUN (8-23) mg/dL Creatinine (0.60-1.20) mg/dL Est GFR ( Amer) (> 60) Est GFR (Non-Af Amer) (> 60) BUN/Creatinine Ratio (6-26) Glucose (70-105) mg/dL Est Mean Plasma Glucose mg/dl Hemoglobin A1c ( - 5.6) % Calculated Osmolality (280-300) Lactic Acid 0.5 (0.5-2.2) mmol/L Calcium (8.6-10.3) mg/dL C-Reactive Protein (Less than 10) mg/L Urine Color (Yellow) Urine Clarity (Clear) Urine pH (5.0-8.0) pH Units Ur Specific [place] (1.010-1.025) Urine Protein (Neg-Trace) mg/dL Urine Glucose (UA) (Normal) mg/dL Urine Ketones (Negative) mg/dL Urine Blood (Negative) Urine Nitrite (Negative) Urine Bilirubin (Negative) Urine Urobilinogen (Normal) mg/dL Ur Leukocyte Esterase (Negative) Urine Microscopic RBC (0-3) per hpf Urine Microscopic WBC (0-3) per hpf Ur Squamous Epith Cells (None-Few) per lpf Ur Transition Epith Cell (None-Few) per hpf Ur Renal Epithelial Cell (None-Few) per hpf Urine Bacteria (None-Few) per hpf Hyaline Casts (None-Few) per lpf Urine Yeast (None Seen) per hpf Ur Culture Indicated? (NO) Synovial Source right hip Synovial Color Colorless (Straw) Synovial Appearance Clear (Clear-Hazy) Synovial Volume 1.0 mL Synovial RBC TNP Synovial Tot Nuc Cell TNP Synovial Band Neuts TNP Synovial Basophils TNP Synovial Eosinophils TNP Synovial Seg Neuts % TNP Synovial Lymphocytes % TNP Synovial Monocytes % TNP Synovial Other Cells % TNP Attestation Statement - Attestation Attestation: I, Danish Tristan DO have provided [id number] time during the care of this patient. Detailed review the presentation, symptoms, medical history were discussed and reviewed with the advanced practice provider Ellyn Baron PA-C/SOFTWARE PROGRAM MANAGER. Medical intervention labs and imaging studies were reviewed in detail. See full documentation of physical exam and course of care in the advanced practice provider's note. I agree with the determined course of care, medical intervention and disposition put forth by the advanced practice provider. See below documentation for changes or alterations in documentation. 67-year-old female presents to the emergency room for evaluation of persistently worsening right hip pain. Patient was seen and evaluated approximately 1-1/2 months ago for infection secondary to a dialysis port. Patient is denying any chest pain or shortness of breath this time. Denies any recent fevers or chills. Denies any nausea vomiting or diarrhea. Denies any headache or vision change. Patient does have a new left-sided chest wall tunnel catheter in place. Denies any falls trauma or injury. She is otherwise alert and oriented. Lungs are clear heart is regular. Abdomen is soft nontender nondistended with no guarding no rigidity and no peritoneal symptoms. She does have tenderness over the right hip with no deformity or injury. She does have the ability to move it and has been ambulating around the hip without any significant difficulty. Labs were drawn and imaging of the right hip was completed. There is osteoarthritis noted an elevated white blood cell count. Because the patient's recent history of bacteremia secondary to the catheter ESR and blood cultures were added on along with CT imaging of the right hip. Orthopedic physician was contacted for the recommendations secondary to the pain. Concern is noted for septic arthritis seated from the previous blood infection. Urinalysis is concerning for possible infection but will be collected and antibiotic regimen will be started. Orthopedics did recommend interventional radiology doing a tap of the synovial fluid of the hip. This will be completed at the discretion timeframe interventional radiology team. Imaging is still pending and antibiotic regimen will be started with vancomycin and Rocephin. No other acute concerns or issues noted at this time. Occult fracture versus septic arthritis is the clinical working differential at this time. Disposition pending full workup and t reatment course. Expect that the patient will require admission. See detailed documentation the physical exam, medical intervention, medical decision-making and disposition in the advanced practice provider's note. 1200 CT imaging is unremarkable for acute bony abnormality or large fluid accumul ation. Conversation was had between the on-call interventional radiologist Dr. Nogueira as well as the on-call orthopedic physician Dr. López.There is still a consideration possible septic arthritis considering the patient has a newly elevated white blood cell count and ESR of 100. the concern from the interventional radiologist is that the patient is on Plavix. Antibiotic regimen will be started here in the emergency department and a Doppler study of the right lower extremity will be ordered. We will call back with the recommendations from orthopedic physician to complete the tap of the joint considering there is still potential concern for septic arthritis at this time. This procedure will be completed either here in the emergency room in the inpatient side. Hospitalist has been paged for admission. 1525 Patient had Doppler study completed and is negative for acute signs of DVT.
[2018-03-02] MEDS ORDERED: Isovue-370 500 ML INFUS..BTL IVP ONE (11:04)
--- NOTE | 2018-03-02 13:54 | Internal Med History&Physical ---
<Tray Padilla P - Last Filed: 03/02/18 15:52> Date of Encounter: 03/02/18 Time of Encounter: 01:30 Internal Medicine - H&P: HPI Chief complaint: Pain in right hip Admitted From: Emergency Dept Plans for Post Hospital Care: Home History of present illness: Ms. Garcia is a 67 year old female with past medical history of arthritis, CHF, COPD, smoker,diabetes, GERD, hyperlipidemia,anxiety, bipolar, hypertension, angioplasty/stent, RA, renal disease presented to emergency for pain and swelling of right hip for last 3 days and progressively getting worse recently. The patient admitted swelling in her leg, feeling hot, inability to bear weight on right hip for last 2-3 days. Patient denies any fever-chills, trauma, chest pain, abdominal pain, nausea vomiting, palpitation, shortness of breath, bowel bladder problem. She further stated that she has osteoarthritis problem in back and knee, she did have similar type of pain in her hip joint before. X-ray done in ED showed osteoarthritis of right hip and CT scan of pelvis and hip also showed degenerative arthritis of the joint. Interventional radiologist has been consulted from emergency to do aspiration and synovial fluid analysis. Past Med Surg Social Fam HX - Past Medical History Medical history: arthritis, CHF, COPD, diabetes, GERD, hyperlipidemia, hypertension, RA, renal disease Additional medical history: HUSAM, Morbid obesity Psychiatric history: anxiety, bipolar - Past Surgical History Surgical History: angioplasty/stent, appendectomy, , cataract Additional surgical history: 1 cardiac stent - Social History Smoking Status: Current every day smoker Smokeless Tobacco Status: No Alcohol use: none Drug use: none - Family History Brother Hx Family Endocrine Disorder: Yes (DM) Father Living Status: Hx Family Cardiac Disorders: Yes Hx Family Neurologic Disorders: Yes (Brain aneurysm) Mother Living Status: Still Living Hx Family Cardiac Disorders: Yes Hx Family Respiratory Disorders: Yes (copd) Hx Family Cancer: Yes Hx Family Neurologic Disorders: Yes (alzheimer) Sister Living Status: Hx Family Endocrine Disorder: Yes (DM) Internal Medicine - H&P: Meds RX: ALPRAZolam [Xanax 1 MG Tablet] 1 mg PO BID 04/15/17 [History] RX: Clopidogrel [Plavix] 75 mg PO DAILY 04/15/17 [History] RX: DULoxetine [Cymbalta] 30 mg PO BID 04/15/17 [History] RX: Famotidine [Heartburn Prevention] 20 mg PO BID 04/15/17 [History] RX: risperiDONE [Risperidone] 1 mg PO HS 04/15/17 [History] RX: Ranolazine [Ranexa] 500 mg PO BID 07/23/17 [History] RX: Rosuvastatin [Crestor] 40 mg PO QPM 07/23/17 [History] RX: Budesonide/Formoterol 160/4.5 [Symbicort 160/4.5] 2 puff IH BIDR 09/28/17 [History] RX: HYDROcodone/Acet 5/325 mg [[place] 5-325 mg] 1 tab PO BID PRN 09/28/17 [History] RX: Tiotropium [Spiriva] 1 puff IH DAILY 09/28/17 [History] RX: Hydralazine HCl 100 mg PO TID #90 tablet 10/04/17 [Rx] RX: Carvedilol [Coreg] 25 mg PO BIDWM 30 Days #30 tablet 11/21/17 [Rx] RX: cloNIDine HCl [CloNIDine HCl] 0.1 mg PO TID 30 Days #90 tablet 11/21/17 [Rx] RX: metOLazone [Zaroxolyn] 5 mg PO DAILY@0730 30 Days #30 tablet 11/21/17 [Rx] RX: Aspirin [Lo-Dose Aspirin EC] 81 mg PO DAILY 12/15/17 [History] RX: Insulin Regular U-500 [HumuLIN R U-500] 70 unit SQ TID 12/15/17 [History] RX: NIFEdipine [Nifedipine ER] 90 mg PO DAILY 12/15/17 [History] RX: Sevelamer [Renvela] 800 mg PO TID 12/15/17 [History] RX: Trazodone HCl 100 mg PO HS 12/15/17 [History] RX: Albuterol Sulfate [Albuterol Inhaler] 2 puff IH Q6H PRN inhaler 12/21/17 [Rx] Fenofibrate Nanocrystallized [Fenofibrate] 160 mg PO DAILY 03/02/18 [History] Furosemide [Lasix] 20 mg PO DAILY 03/02/18 [History] Allergy/AdvReac Type Severity Reaction Status Date / Time morphine Allergy Hallucinati Verified 03/02/18 06:36 ng Sulfa (Sulfonamide Allergy Rash Verified 03/02/18 06:36 Antibiotics) All Systems PM: A 10-system review of systems was performed and is negative for pertinent findings except as documented above in the HPI. - Constitutional Constitutional: anorexia, lethargy, malaise, weight gain, no chills, no excessive sweating, no falls - EENT Eyes: no change in vision, no loss of peripheral vision, no photophobia Nose, mouth and throat: no bleeding gums, no change in voice, no mouth lesions, no mouth pain - Cardiovascular Cardiovascular ROS IM: no chest pain, no claudication, no dyspnea, no lightheadedness, no orthopnea, no palpitations - Respiratory Respiratory: no dyspnea, no hemoptysis, no pain on inspiration, no chest conges tion - Gastrointestinal Gastrointestinal: no abdominal pain, no bloating, no change in bowel habits, no cramping, no hematemesis, no hematochezia - Genitourinary Genitourinary: no difficulty urinating, no hematuria, no urinary frequency - Musculoskeletal Musculoskeletal ROS IM: limited range of motion, muscle weakness, myalgias, other (Right leg swelling, right Hip pain , calf swelling,), no arthralgias, no joint swelling, no muscle cramps, no neck pain, no numbness, no stiffness - Integumentary Integumentary IM: no new lesions, no rash, no skin ulcer - Neurological Neurological ROS: no abnormal gait, no memory loss, no numbness, no paresthesias - Psychiatric Psychiatric: no abnormal sleep pattern, no anxiety, no confusion, no depression - Endocrine Endocrine IM: no cold intolerance, no flushing - Hematologic/Lymphatic Hematologic/Lymphatic: no easy bleeding, no easy bruising - Allergic/Immunologic Allergic/Immunologic: no tongue swelling, no throat swelling, no wheezing - Constitutional Vitals: Temp Pulse Resp BP Pulse Ox 98.5 F 76 18 158/53 93 03/02/18 06:38 03/02/18 13:14 03/02/18 13:14 03/02/18 13:14 03/02/18 13:14 General appearance: Present: A&O X 3, no acute distress, obese, answers questions appropriately Exam: Gen: Alert, awake , Oriented to time,place and person Chest: Diminished BS b/l, No crackles, No rales, No wheezing Heart: S1S2+ RRR No Murmurs Abd: Soft, NT, BS + No organomegaly Ext: Moderate swelling over right leg, restricted range of motion of right hip mostly internal rotation, tenderness over the gluteus muscle on the back of right hip. Left hip looks grossly normal except mild pitting edema. Neuro: No focal neuro deficits Psych: Normal mood Skin: No rash Internal Med - H&P Results - Labs CBC & Chem 7: 03/02/18 07:55 03/02/18 07:55 Labs: Short CBC 03/02/18 Range/Units 07:55 WBC 16.6 H (4.3-11.1) K/mcL Hgb 12.3 (11.5-15.4) g/dL Hct 37.6 (35.3-44.9) % Plt Count 177 (140-400) K/mcL Neutrophils # 13.7 H (1.6-8.9) K/mcL BMP 03/02/18 07:55 Sodium 126 L Potassium 3.8 Chloride 90 L Carbon Dioxide 24 BUN 52 H Creatinine 5.66 H Glucose 188 H Calcium 9.7 Urine 03/02/18 Range/Units 07:25 Urine Color Yellow (Yellow) Urine Clarity Hazy A (Clear) Urine pH 6.0 (5.0-8.0) pH Units Ur Specific [place] 1.009 L (1.010-1.025) Urine Protein >=300 H (Neg-Trace) mg/dL Urine Glucose (UA) 100 H (Normal) mg/dL - Impressions ITS Impressions Hip X-Ray 03/02/18 06:58 IMPRESSION: No acute osseous abnormality. [id number] osteoarthritis of the hips. D/ / Dani Kitchen MD / Dani Kitchen MD Interpreting Provider: Dani Kitchen MD Hip CT 03/02/18 09:41 IMPRESSION: 1. No acute fracture or gross dislocation. 2. Cholelithiasis. 3. Mild sigmoid diverticulosis. 4. Minimal degenerative changes at the right hip joint space. 5. Small midline fat containing periumbilical hernia. 6. Atherosclerotic calcification of the abdominal aorta and branch vasculature. D/ / 03/02/2018 12:01:45 Miguel Rodriguez MD / Mireille Corea Interpreting Provider: Miguel Rodriguez MD - Assessment and plan (1) Acute right hip pain Current Visit: Yes Status: Acute Assessment and plan: The patient has acute severe right hip pain and swelling for last 3 days , but no fever. Possibly it might be due to infection/septic arthritis Total height count is 16.6 and neutrophil 13.7 , ESR 100 ::X-ray right hip and CT pelvis: Showed degenerative changes in right hip. Interventional radiologist has been consulted for arthrocentesis & synovial fluid analysis and culture We have started vancomycin and Zyosin as renal dose adjustment to cover gram- positive organism and annulus antibiotic as per culture report We will consult ID specility and Ortho as per need. (2) Osteoarthritis of right hip Current Visit: Yes Status: Acute Assessment and plan: The patient has right hip pain for last 3 days without fever X-ray right hip and CT pelvis showed degenerative osteoarthritis We have placed on pain medication and we need to rule out possibility of septic arthritis. Qualifiers: Osteoarthritis type: unspecified Qualified Code(s): M16.11 - Unilateral primary osteoarthritis, right hip (3) Bursitis of hip, right Current Visit: Yes Status: Acute Assessment and plan: The patient has moderately severe pain on gluteal muscle region, it might be due to gluteus bursitis Qualifiers: Hip bursitis location: other hip bursa Qualified Code(s): M70.71 - Other bursitis of hip, right hip (4) Diabetes mellitus Current Visit: Yes Status: Acute Assessment and plan: Patient is chronic patient of diabetes with home insulin 70 units 3 times a day Her recent blood sugar level is 188 Qualifiers: Chronic kidney disease stage: on chronic dialysis Qualified Code(s): E08.22 - Diabetes mellitus due to underlying condition with diabetic chronic kidney disease (5) CCF (congestive cardiac failure) Current Visit: Yes Status: Acute Assessment and plan: The patient has history of congestive heart failure Latest Echo :LVEF 60%. Indeterminate diastolic function. She is on metolazone, Lasix Will consult Nephro Qualifiers: Heart failure type: diastolic Heart failure chronicity: unspecified Qualified Code(s): I50.30 - Unspecified diastolic (congestive) heart failure (6) DVT (deep venous thrombosis) Current Visit: Yes Status: Acute Assessment and plan: The patient has moderate to severe swelling in right calf muscle ,needsto rule out possibility of DVT is patient has risk factors : Obese female, smoker, Less mobility . We have ordered d-dimer and V Doppler of regular activity. Qualifiers: Qualified Code(s): I82.409 - Acute embolism and thrombosis of unspecified deep veins of unspecified lower extremity (7) ESRD (end stage renal disease) Current Visit: Yes Status: Acute Assessment and plan: The patient has GFR 7, creatinine 5.66, BUN 52 (8) COPD (chronic obstructive pulmonary disease) Current Visit: Yes Status: Acute Assessment and plan: The patient is chronic patient of COPD and chronic smoker She is on nebulizer and Symbicort inhaler. Qualifiers: COPD type: unspecified COPD Qualified Code(s): J44.9 - Chronic obstructive pulmonary disease, unspecified (9) Hypertension Current Visit: Yes Status: Acute Assessment and plan: She is patient of chronic essential hypertension we have resumed all medication. Qualifiers: Hypertension type: essential hypertension Qualified Code(s): I10 - Essential (primary) hypertension (10) CAD (coronary artery disease) Current Visit: Yes Status: Acute Assessment and plan: The patient has history of CAD and stent placement in the past She is on aspirin, Plavix, carvedilol Crestor Qualifiers: Qualified Code(s): I25.10 - Atherosclerotic heart disease of [place] coronary artery without angina pectoris (11) UTI (urinary tract infection) Current Visit: Yes Status: Acute Assessment and plan: The patient does not have urinary symptoms ; her urine shows urine infection, culture has been awaited. Qualifiers: Qualified Code(s): N39.0 - Urinary tract infection, site not specified; R31.9 - Hematuria, unspecified - Time Spent With Patient Total time spent is greater than 50% in coordination of care (as documented) at patient's floor/unit and/or counseling patient: <Cate Quintana - Last Filed: 03/03/18 13:41> Date of Encounter: 03/02/18 Internal Medicine - H&P: HPI History of present illness: Ms. Garcia is a 67 year old female All Systems PM: A 10-system review of systems was performed and is negative for pertinent findings except as documented above in the HPI. - Constitutional Vitals: Temp Pulse Resp BP Pulse Ox 98.5 F 76 18 158/53 93 03/02/18 06:38 03/02/18 13:14 03/02/18 13:14 03/02/18 13:14 03/02/18 13:14 Internal Med - H&P Results - Labs CBC & Chem 7: 03/03/18 06:37 03/03/18 06:37 Labs: Short CBC 03/02/18 Range/Units 07:55 WBC 16.6 H (4.3-11.1) K/mcL Hgb 12.3 (11.5-15.4) g/dL Hct 37.6 (35.3-44.9) % Plt Count 177 (140-400) K/mcL Neutrophils # 13.7 H (1.6-8.9) K/mcL BMP 03/02/18 07:55 Sodium 126 L Potassium 3.8 Chloride 90 L Carbon Dioxide 24 BUN 52 H Creatinine 5.66 H Glucose 188 H Calcium 9.7 Urine 03/02/18 Range/Units 07:25 Urine Color Yellow (Yellow) Urine Clarity Hazy A (Clear) Urine pH 6.0 (5.0-8.0) pH Units Ur Specific [place] 1.009 L (1.010-1.025) Urine Protein >=300 H (Neg-Trace) mg/dL Urine Glucose (UA) 100 H (Normal) mg/dL - Impressions ITS Impressions Hip X-Ray 03/02/18 06:58 IMPRESSION: No acute osseous abnormality. [id number] osteoarthritis of the hips. D/ / Dani Kitchen MD / Dani Kitchen MD Interpreting Provider: Dani Kitchen MD Hip CT 03/02/18 09:41 IMPRESSION: 1. No acute fracture or gross dislocation. 2. Cholelithiasis. 3. Mild sigmoid diverticulosis. 4. Minimal degenerative changes at the right hip joint space. 5. Small midline fat containing periumbilical hernia. 6. Atherosclerotic calcification of the abdominal aorta and branch vasculature. D/ / 03/02/2018 12:01:45 Miguel Rodriguez MD / Mireille Corea Interpreting Provider: Miguel Rodriguez MD - Time Spent With Patient Total time spent is greater than 50% in coordination of care (as documented) at patient's floor/unit and/or counseling patient: - Attending Attestation I examined this patient and my medical decision-making was reviewed with the Resident Physician Dr. Ashley. I agree with the documented findings, disposition and treatment plan as described except to the extent set forth below. Ms. Garcia is a 67 y/o F with known ESRD on HD T/T/S , CAD s/p PCI, HTN, HLD and DM2 pt presented to ER with worsening Rt hip pain from last 3 days. She is unable to bare any weight. Also she noticed some swelling in Rt hip. She denied any CP / SOB. Gen: A, A, O x3 Chest: Diminished BS b/l No crackles No rales Heart: S1S2+ RRR Ext; Moderate tenderness in Rt hip, swelling + mild erythema noticed in Rt thigh region too. a/p 1. Acute Rt hip pain 2. ?? Septic Rt hip 3. SIRS - meets SIRS criteria with elevated WBC and source of inf as Rt hip septic joint blood cx IR just did joint aspiration wll f/u on synovial fluid cx, gram stain empirical abx Zosyn and Vanc
[2018-03-02] MEDS ORDERED: Naloxone 0.4 MG/ML INJ IVP PRN (14:47)
[2018-03-02] MEDS ORDERED: Dextrose Gel 15 GM/37.5 ML TUBE PO PRN ×2 (14:51)
[2018-03-02] MEDS ORDERED: *HR* Dextrose 50 % in Water (Syg) 50 ML SYRINGE IVP PRN (14:51)
[2018-03-02] MEDS ORDERED: D5% in Water 1,000 ML IVC PRN (14:51)
[2018-03-02] MEDS ORDERED: 0.9 % Sodium Chloride 2,000 ML IVC SCH (15:00)
[2018-03-02] MEDS ORDERED: Vancomycin 1 EACH in EMPTY BAG 1 EACH IVPB SCH (16:00)
[2018-03-02 16:22] LABS: Estimated Average Glucose 128 mg/dl; Hemoglobin A1C 6.1 %
[2018-03-02] MEDS: cloNIDine HCl 0.1 MG TABLET PO SCH ×2 (16:41→22:43)
[2018-03-02] MEDS: hydrALAZINE 25 MG TABLET PO SCH ×2 (16:41→22:43)
[2018-03-02] MEDS: Insulin LISPRO 300 UNITS/3 ML VIAL SQ SCH ×2 (16:41→21:14)
[2018-03-02] MEDS: *HR* Heparin 5,000 UNIT/ML VIAL SQ SCH (16:42)
[2018-03-02] MEDS: Piperacillin/Tazobactam 3.375 GM in 0.9 % Sodium Chloride Mini Bag 100 ML IVPB SCH (16:42)
[2018-03-02 17:13] LABS: Hepatitis B Surface Antibody < 3.10 mIU/mL
[2018-03-02 17:16] LABS: Appearance,Synovial Fluid Clear (Clear-Hazy); Color,Synovial Fluid Colorless (Straw)
[2018-03-02 17:22] LABS: Hepatitis B Surface Antigen Nonreactive (Nonreactive)
[2018-03-02] MEDS: Acetaminophen 325 MG TABLET PO PRN (20:15)
[2018-03-02] MEDS: Budesonide/Formoterol 160/4.5 1 PUFF INH IH SCH (20:56)
[2018-03-02] MEDS ORDERED: Famotidine 20 MG TABLET PO SCH (21:00)
[2018-03-02] MEDS: ALPRAZolam 1 MG TABLET PO SCH (21:57)
[2018-03-02] MEDS: risperiDONE 1 MG TABLET PO SCH (21:57)
[2018-03-02] MEDS: traZODone 50 MG TABLET PO SCH (21:57)
[2018-03-02] MEDS: Nystatin POWDER 30 GM BOTTLE TP SCH (21:59)
[2018-03-02] MEDS: Ranolazine 500 MG TAB.ER.12H PO SCH (22:44)
[2018-03-02 22:56] LABS: Acinetobacter baumannii by PCR Not Detected (Not Detect); Candida albicans by PCR Not Detected (Not Detect); Candida glabrata by PCR Not Detected (Not Detect); Candida krusei by PCR Not Detected (Not Detect); Candida parapsilosis by PCR Not Detected (Not Detect); Candida tropicalis by PCR Not Detected (Not Detect); Enterobacter cloacae Cmplx PCR Not Detected (Not Detect); Enterobacteriaceae by PCR Not Detected (Not Detect); Enterococcus by PCR DETECTED (Not Detect); Escherichia coli by PCR Not Detected (Not Detect); Klebsiella oxytoca by PCR Not Detected (Not Detect); Klebsiella pneumoniae by PCR Not Detected (Not Detect); Proteus by PCR Not Detected (Not Detect); Pseudomonas aeruginosa by PCR Not Detected (Not Detect); Serratia marcescens by PCR Not Detected (Not Detect); Staphylococcus aureus by PCR Not Detected (Not Detect); Staphylococcus by PCR Not Detected (Not Detect); Streptococcus agalactiae(B)PCR Not Detected (Not Detect); Streptococcus by PCR Not Detected (Not Detect); Streptococcus pneumoniae PCR Not Detected (Not Detect); Streptococcus pyogenes (A) PCR Not Detected (Not Detect); vanA/B Vancomycin-Resist Genes Not Detected (Not Detect)
[2018-03-02] MEDS: *HR* HYDROcodone/Acet 5/325 mg TABLET PO PRN (23:10)
[2018-03-03] MEDS: *HR* HYDROcodone/Acet 5/325 mg TABLET PO PRN (05:14)
[2018-03-03] MEDS: Piperacillin/Tazobactam 3.375 GM in 0.9 % Sodium Chloride Mini Bag 100 ML IVPB SCH ×2 (05:14→17:13)
[2018-03-03] MEDS: *HR* Heparin 5,000 UNIT/ML VIAL SQ SCH ×2 (05:14→17:13)
[2018-03-03 07:28] LABS: Basophils # 0.1 K/mcL (0.0-0.2); Basophils % 0.2 %; Eosinophils # 0.1 K/mcL (0.0-0.6); Eosinophils % 0.2 %; Hematocrit 35.4 % (35.3-44.9); Hemoglobin 11.7 g/dL (11.5-15.4); Immature Granulocytes % 0.7 % (0-4); Lymphocytes # 0.5 K/mcL (0.6-4.6); Lymphocytes % 2.5 %; Mean Corpuscular HGB Conc 33.1 g/dL (31.6-35.5); Mean Corpuscular Hemoglobin 27.9 pg (28.0-33.3); Mean Corpuscular Volume 84.5 fL (83.0-100.0); Monocytes # 0.8 K/mcL (0.0-1.3); Monocytes % 3.9 %; Neutrophils # 19.8 K/mcL (1.6-8.9); Platelet Count 170 K/mcL (140-400); Red Blood Count 4.19 M/mcL (3.82-4.97); Red Cell Distribution Width 15.8 % (11.5-14.5); Segmented Neutrophils % 92.5 %
[2018-03-03 07:44] LABS: Calcium 9.2 mg/dL (8.6-10.3); Potassium 3.5 mEq/L (3.5-5.1)
[2018-03-03] MEDS ORDERED: 0.9 % Sodium Chloride 2,000 ML ONE (07:48)
[2018-03-03] MEDS: Budesonide/Formoterol 160/4.5 1 PUFF INH IH SCH ×2 (07:55→20:01)
[2018-03-03] MEDS ORDERED: 0.9 % Sodium Chloride 250 ML IVC PRN (07:59)
[2018-03-03] MEDS ORDERED: 0.9 % Sodium Chloride 1,000 ML PRIME SCH (08:00)
[2018-03-03] MEDS: Tiotropium 18 MCG inhalation IH SCH (08:26)
[2018-03-03] MEDS ORDERED: FENO PO SCH (09:00)
[2018-03-03] MEDS ORDERED: Tiotropium 18 MCG inhalation IH SCH (09:00)
[2018-03-03] MEDS ORDERED: *HR* Heparin 10,000 UNIT/10 ML VIAL IV PRN (09:14)
[2018-03-03] MEDS: metOLazone 5 MG TABLET PO SCH (09:20)
[2018-03-03] MEDS: cloNIDine HCl 0.1 MG TABLET PO SCH ×2 (09:20→17:01)
[2018-03-03] MEDS: hydrALAZINE 25 MG TABLET PO SCH ×2 (09:21→17:01)
[2018-03-03] MEDS: NIFEdipine XL (24 HR) 30 MG TAB.ER.24 PO SCH (09:22)
[2018-03-03] MEDS: Furosemide 20 MG TABLET PO SCH (09:22)
[2018-03-03] MEDS: ALPRAZolam 1 MG TABLET PO SCH (09:24)
[2018-03-03] MEDS: Fenofibrate 54 MG TABLET PO SCH (09:24)
[2018-03-03] MEDS: Aspirin Enteric Coated 81 MG Tablet PO SCH (09:24)
[2018-03-03] MEDS: Nystatin POWDER 30 GM BOTTLE TP SCH ×2 (09:25→21:00)
[2018-03-03] MEDS: Insulin LISPRO 300 UNITS/3 ML VIAL SQ SCH ×4 (09:25→21:19)
[2018-03-03] MEDS: Ranolazine 500 MG TAB.ER.12H PO SCH ×2 (09:32→21:18)
--- NOTE | 2018-03-03 09:46 | Internal Med Progress Note ---
<Tray Padilla P - Last Filed: 03/03/18 12:37> Hospitalist Progress Note - Encounter Date of Encounter: 03/03/18 Time of Encounter: 09:30 - Subjective Interval History: She is 67 year old female with past medical history of arthritis, CHF, COPD, smoker,diabetes, GERD, hyperlipidemia,anxiety, bipolar, hypertension, angioplast y/stent, RA, ESRD presented to ED for pain and swelling of right hip for last 3 days and progressively getting worse recently. She is a patient of ESRD on dialyzes 3 times in a week. X-ray done in ED showed osteoarthritis of right hip and CT scan of pelvis and hip also showed degenerative arthritis of the joint. Interventional radiologist did arthrocentesis from right hip and sent for synovial fluid analysis and culture. Today during my visit the patient was lying on the bed, she was oriented to time place and person, not in acute distress, answering question appropriately, she is not febrile, tachypneic, tachycardic, she does not have any new complaints but admitted right hip pain the same as before and swelling in right lower extremity she does not have any chest pain, cough, shortness of breath, dizziness .Her vitals are stable except one episode of increased temperature in last 24 hours. She is going to do dialyzes today. Nephrology team already consulted the patient. - Exam Vitals: Temp Pulse Resp BP Pulse Ox 98.7 F 73 18 128/63 96 03/03/18 07:52 03/03/18 07:52 03/03/18 07:55 03/03/18 07:52 03/03/18 07:55 Exam: Gen: Alert, awake , Oriented to time,place and person Chest: Diminished BS b/l, No crackles, No rales, No wheezing Heart: S1S2+ RRR No Murmurs Abd: Soft, NT, BS + No organomegaly Ext: Moderate swelling over right leg, restricted range of motion of right hip mostly internal rotation, tenderness over the gluteus muscle on the back of right hip. Left hip looks grossly normal except mild pitting edema. Neuro: No focal neuro deficits Psych: Normal mood Skin: No rash( - Assessment and Plan (1) SIRS (systemic inflammatory response syndrome) Current Visit: Yes Status: Acute Assessment and Plan: The patient has one episode of elevated temperature recorded 100.5 F yesterday, today the temperature is 98F The patient has UTI, white cell count 21.4 with neutrophil 19.8, blood pressure 138/51, respiration 18, pulse 72 Peripheral venipuncture blood c/s showed gram-positive cocci Blood culture showed gram-positive cocci. We have started IV antibiotic Zosyn and vancomycin. (2) Acute right hip pain Current Visit: Yes Status: Acute Assessment and Plan: The patient has acute severe right hip pain and swelling for last 3 days , but no fever. Possibly it might be due to infection/septic arthritis Total height count is 16.6 and neutrophil 21.4 , ESR 100 ::X-ray right hip and CT pelvis: Showed degenerative changes in right hip. We have started vancomycin and Zyosin as renal dose adjustment to cover gram- positive organism and adjust antibiotic as per culture report Interventional radiologist did arthrocentesis and synovial fluid analysis and C/S has bee awaited. We will consult ID specility and Ortho as per need. (3) Osteoarthritis of right hip Current Visit: Yes Status: Acute Assessment and Plan: The patient has right hip pain for last 3 days without fever X-ray right hip and CT pelvis showed degenerative osteoarthritis We have placed on pain medication and we need to rule out possibility of septic arthritis. (4) UTI (urinary tract infection) Current Visit: Yes Status: Acute Assessment and Plan: The patient urine analysis showed UTI, urine culture awaited She is on IV antibiotic. (5) Hyponatremia Current Visit: Yes Status: Acute Assessment and Plan: The patient has low serum sodium level; recent one is 124, we will monitor closely. (6) ESRD (end stage renal disease) Current Visit: Yes Status: Acute Assessment and Plan: The patient has GFR 7, creatinine 6.5 BUN 57 She is doing dialyzes on Thursday, , Thursday She will do hemodialysis today. Nephro team already consulted the patient (7) Bursitis of hip, right Current Visit: Yes Status: Acute Assessment and Plan: The patient has moderately severe pain on gluteal muscle region, it might be due to gluteus bursitis (8) Diabetes mellitus Current Visit: Yes Status: Acute Assessment and Plan: Patient is chronic patient of diabetes with home insulin 70 units 3 times a day Her recent blood sugar level is 204, 222 She is on insulin start sliding scale. (9) CCF (congestive cardiac failure) Current Visit: Yes Status: Acute Assessment and Plan: The patient has history of congestive heart failure Latest Echo :LVEF 60%; diastolic function. She is on metolazone, Lasix (10) DVT (deep venous thrombosis) Current Visit: Yes Status: Acute Assessment and Plan: The patient is on heparin SQ for DVT prophylaxis (11) COPD (chronic obstructive pulmonary disease) Current Visit: Yes Status: Acute Assessment and Plan: The patient is chronic patient of COPD and chronic smoker She is on nebulizer and Symbicort inhaler. (12) Hypertension Current Visit: Yes Status: Acute Assessment and Plan: She is patient of chronic essential hypertension we have resumed all medication. (13) CAD (coronary artery disease) Current Visit: Yes Status: Acute Assessment and Plan: The patient is chronic patient of COPD and chronic smoker She is on nebulizer and Symbicort inhaler. - Time Spent with Patient Total time spent is greater than 50% in coordination of care (as documented) at patient's floor/unit and/or counseling patient: Internal Medicine: Result - Labs CBC & Chem 7: 03/03/18 06:37 03/03/18 06:37 Labs: Short CBC 03/03/18 Range/Units 06:37 WBC 21.4 H (4.3-11.1) K/mcL Hgb 11.7 (11.5-15.4) g/dL Hct 35.4 (35.3-44.9) % Plt Count 170 (140-400) K/mcL Neutrophils # 19.8 H (1.6-8.9) K/mcL BMP 03/02/18 03/03/18 07:55 06:37 Sodium 126 L 124 L Potassium 3.8 3.5 Chloride 90 L 88 L Carbon Dioxide 24 21 L BUN 52 H 57 H Creatinine 5.66 H 6.51 H Glucose 188 H 204 H Calcium 9.7 9.2 - ABG Interpretation ABG results: PT/INR, D-dimer PT 12.1 Seconds (9.4-12.1) 03/02/18 07:55 - Impressions Impressions Fluoroscopy 03/02/18 00:00 IMPRESSION: Successful fluoroscopic-guided right hip aspiration D/ / Ector Nogueira MD / Ector Nogueira MD Interpreting Provider: Ector Nogueira MD Hip CT 03/02/18 09:41 IMPRESSION: 1. No acute fracture or gross dislocation. 2. Cholelithiasis. 3. Mild sigmoid diverticulosis. 4. Minimal degenerative changes at the right hip joint space. 5. Small midline fat containing periumbilical hernia. 6. Atherosclerotic calcification of the abdominal aorta and branch vasculature. D/ / 03/02/2018 12:01:45 Miguel Rodriguez MD / Mireille Corea Interpreting Provider: Miguel Rodriguez MD Consult Discharge Plan - Plan Referrals: Jay Valenzuela DO [Primary Care Provider] - <Cate Quintana - Last Filed: 03/03/18 13:40> Hospitalist Progress Note - Encounter Date of Encounter: 03/03/18 - Exam Vitals: Temp Pulse Resp BP Pulse Ox 97.7 F 73 18 121/51 96 03/03/18 10:45 03/03/18 07:52 03/03/18 10:45 03/03/18 12:45 03/03/18 07:55 - Time Spent with Patient Total time spent is greater than 50% in coordination of care (as documented) at patient's floor/unit and/or counseling patient: Internal Medicine: Result - Labs CBC & Chem 7: 03/03/18 06:37 03/03/18 06:37 Labs: Short CBC 03/03/18 Range/Units 06:37 WBC 21.4 H (4.3-11.1) K/mcL Hgb 11.7 (11.5-15.4) g/dL Hct 35.4 (35.3-44.9) % Plt Count 170 (140-400) K/mcL Neutrophils # 19.8 H (1.6-8.9) K/mcL BMP 03/02/18 03/03/18 07:55 06:37 Sodium 126 L 124 L Potassium 3.8 3.5 Chloride 90 L 88 L Carbon Dioxide 24 21 L BUN 52 H 57 H Creatinine 5.66 H 6.51 H Glucose 188 H 204 H Calcium 9.7 9.2 - ABG Interpretation ABG results: PT/INR, D-dimer PT 12.1 Seconds (9.4-12.1) 03/02/18 07:55 - Impressions Impressions Fluoroscopy 03/02/18 00:00 IMPRESSION: Successful fluoroscopic-guided right hip aspiration D/ / Ector Nogueira MD / Ector Nogueira MD Interpreting Provider: Ector Nogueira MD Hip CT 03/02/18 09:41 IMPRESSION: 1. No acute fracture or gross dislocation. 2. Cholelithiasis. 3. Mild sigmoid diverticulosis. 4. Minimal degenerative changes at the right hip joint space. 5. Small midline fat containing periumbilical hernia. 6. Atherosclerotic calcification of the abdominal aorta and branch vasculature. D/ / 03/02/2018 12:01:45 Miguel Rodriguez MD / Mireille perez Interpreting Provider: Miguel Rodriguez MD - Attending Attestation I examined this patient and my medical decision-making was reviewed with the Resident Physician Dr. Ashley. I agree with the documented findings, disposition and treatment plan as described except to the extent set forth below. Ms. Garcia is a 67 y/o F with known ESRD on HD T/T/S , CAD s/p PCI, HTN, HLD and DM2 pt presented to ER with worsening Rt hip pain from last 3 days. She is unable to bare any weight. Also she noticed some swelling in Rt hip. She denied any CP / SOB. Gen: A, A, O x3 Chest: Diminished BS b/l No crackles No rales Heart: S1S2+ RRR Ext; Moderate tenderness in Rt hip, swelling + mild erythema noticed in Rt thigh region too. a/p 1. Acute Rt hip pain 2. ?? Septic Rt hip 3. SIRS - meets SIRS criteria with elevated WBC and source of inf as Rt hip septic joint 4. Acute bacteremia 5. Perm HD Cath on Left chest region 6. Acute UTI blood cx 4/4 G+ve cocci s/p Joint aspiration - unable to do cell count due to low volume cont empirical abx Zosyn and Vanc Ortho on board consulted ID for further eval 7. ESRD on HD Nephro consulted for HD <Dhungana,Dhurba P - Last Filed: 03/03/18 12:37> (3) Osteoarthritis of right hip Qualifiers: Osteoarthritis type: unspecified Qualified Code(s): M16.11 - Unilateral primary osteoarthritis, right hip (4) UTI (urinary tract infection) Qualifiers: Qualified Code(s): N39.0 - Urinary tract infection, site not specified; R31.9 - Hematuria, unspecified (7) Bursitis of hip, right Qualifiers: Hip bursitis location: other hip bursa Qualified Code(s): M70.71 - Other bursitis of hip, right hip (8) Diabetes mellitus Qualifiers: Chronic kidney disease stage: on chronic dialysis (9) CCF (congestive cardiac failure) Qualifiers: Heart failure type: diastolic Heart failure chronicity: unspecified Qualified Code(s): I50.30 - Unspecified diastolic (congestive) heart failure (10) DVT (deep venous thrombosis) Qualifiers: Qualified Code(s): I82.409 - Acute embolism and thrombosis of unspecified deep veins of unspecified lower extremity (11) COPD (chronic obstructive pulmonary disease) Qualifiers: COPD type: unspecified COPD Qualified Code(s): J44.9 - Chronic obstructive pulmonary disease, unspecified (12) Hypertension Qualifiers: Hypertension type: essential hypertension Qualified Code(s): I10 - Essential (primary) hypertension (13) CAD (coronary artery disease) Qualifiers: Qualified Code(s): I25.10 - Atherosclerotic heart disease of [place] coronary artery without angina pectoris
[2018-03-03] MEDS ORDERED: Vancomycin 1 EACH in EMPTY BAG 1 EACH IVPB PRN (10:15)
--- NOTE | 2018-03-03 11:38 | Nephrology Consult Note ---
Addendum entered and electronically signed by Naveed Moran Dolores, 03/03/18 16:26: Dialysis Note: Earlier today she was seen/examined while on HD, but she did not quite finish the whole treatment with her HD catheter failure to flow adequate. HD was stopped. I will reassess her dialysis catheter with HD tomorrow: if poor flows then she may need Cathflo. Addendum entered and electronically signed by Naveed Moran Dolores, DO 03/03/18 16:23: I examined this patient and my medical decision-making was reviewed with the Resident Physician. I agree with the documented findings, disposition and treatment plan as described except to the extent set forth below. ESRD on HD TTS who missed her Thursday HD. Her primary Dining Room Busser is Dr. Qiu. Will need HD today (Thursday) for clearance and electrolyte management. Next HD tentatively recommended for tomorrow to resume her TTS schedule. Hx of bacteremia, and being worked up. She is at risk for another catheter infection. She was listed as Dialysis dependent TAMEAK, but she has required HD for >3 months and has not shown signs of any renal recovery; so, she is by definition ESRD. Will continue to follow with you. Thank you for consulting the [facility] group. Original Note: Date of Encounter: 03/03/18 Time of Encounter: 11:29 Assessment and Plan (1) ESRD (end stage renal disease) on dialysis Current Visit: Yes Status: Acute Current regimen is TTS at [facility] HD in progress today. Renal diet Renal vitamins Strict I/O Avoid nephrotoxins and renal dose all medications. (2) Acute right hip pain Current Visit: Yes Status: Acute Per primary. (3) Osteoarthritis of right hip Current Visit: Yes Status: Acute X-ray right hip and CT pelvis reflects degenerative osteoarthritis, rule out septic arthritis. Per primary. Qualifiers: Osteoarthritis type: unspecified Qualified Code(s): M16.11 - Unilateral primary osteoarthritis, right hip (4) UTI (urinary tract infection) Current Visit: Yes Status: Acute UA + for UTI. Per primary. Qualifiers: Qualified Code(s): N39.0 - Urinary tract infection, site not specified; R31.9 - Hematuria, unspecified (5) Hyponatremia Current Visit: Yes Status: Acute NA 124, no signs and symptoms per patient. Will check serum and urine labs. History of Present Illness - Reason for Consult Consult date: 03/03/18 end stage renal disease Requesting physician: Flash Serrano - Chief Complaint right hip pain - History of Present Illness Ms. Garcia presents to ED with right hip pain that started 4 days ago. It has progressively gotten worse. PMH:arthritis, CHF, COPD, diabetes, GERD, hyperlipidemia, hypertension, RA. Pt had a previous TAMEKA in November of last year and has been HD dependent since. Given the time frame, she will be progressed to ESRD this admission. Current regimen is TTS at [facility]. HD in progress for today, to make up for missed session yesterday. Denies nausea, vomiting, diarrhea. Denies chest pain or shortness of breath. Denies fever, chills. She is a current every day smoker, denies etoh or illicit drug use. Past Med Surg Social Fam HX - Past Medical History Medical history: arthritis, CHF, COPD, diabetes, GERD, hyperlipidemia, hypertension, RA, renal disease Additional medical history: HUSAM, Morbid obesity Psychiatric history: anxiety, bipolar - Past Surgical History Surgical History: angioplasty/stent, appendectomy, , cataract Additional surgical history: 1 cardiac stent - Social History Smoking Status: Current every day smoker Smokeless Tobacco Status: No Alcohol use: none Drug use: none - Family History Mother Living Status: Still Living Hx Family Cardiac Disorders: Yes Hx Family Respiratory Disorders: Yes (copd) Hx Family Cancer: Yes Hx Family Neurologic Disorders: Yes (alzheimer) Father Living Status: Hx Family Cardiac Disorders: Yes Hx Family Neurologic Disorders: Yes (Brain aneurysm) Brother History Unknown: Yes Hx Family Endocrine Disorder: Yes (DM) Sister History Unknown: Yes Living Status: Hx Family Endocrine Disorder: Yes (DM) Medications and Allergies ALPRAZolam [Xanax 1 MG Tablet] 1 mg PO BID 04/15/17 [History] Clopidogrel [Plavix] 75 mg PO DAILY 04/15/17 [History] DULoxetine [Cymbalta] 30 mg PO BID 04/15/17 [History] Famotidine [Heartburn Prevention] 20 mg PO BID 04/15/17 [History] risperiDONE [Risperidone] 1 mg PO HS 04/15/17 [History] Ranolazine [Ranexa] 500 mg PO BID 07/23/17 [History] Rosuvastatin [Crestor] 40 mg PO QPM 07/23/17 [History] Budesonide/Formoterol 160/4.5 [Symbicort 160/4.5] 2 puff IH BIDR 09/28/17 [History] HYDROcodone/Acet 5/325 mg [[place] 5-325 mg] 1 tab PO BID PRN 09/28/17 [History] Tiotropium [Spiriva] 1 puff IH DAILY 09/28/17 [History] Hydralazine HCl 100 mg PO TID #90 tablet 10/04/17 [Rx] Carvedilol [Coreg] 25 mg PO BIDWM 30 Days #30 tablet 11/21/17 [Rx] cloNIDine HCl [CloNIDine HCl] 0.1 mg PO TID 30 Days #90 tablet 11/21/17 [Rx] metOLazone [Zaroxolyn] 5 mg PO DAILY@0730 30 Days #30 tablet 11/21/17 [Rx] Aspirin [Lo-Dose Aspirin EC] 81 mg PO DAILY 12/15/17 [History] Insulin Regular U-500 [HumuLIN R U-500] 70 unit SQ TID 12/15/17 [History] NIFEdipine [Nifedipine ER] 90 mg PO DAILY 12/15/17 [History] Sevelamer [Renvela] 800 mg PO TID 12/15/17 [History] Trazodone HCl 100 mg PO HS 12/15/17 [History] Albuterol Sulfate [Albuterol Inhaler] 2 puff IH Q6H PRN inhaler 12/21/17 [Rx] Fenofibrate Nanocrystallized [Fenofibrate] 160 mg PO DAILY 03/02/18 [History] Furosemide [Lasix] 20 mg PO DAILY 03/02/18 [History] Allergy/AdvReac Type Severity Reaction Status Date / Time morphine Allergy Hallucinati Verified 03/02/18 06:36 ng Sulfa (Sulfonamide Allergy Rash Verified 03/02/18 06:36 Antibiotics) Review of Systems All Systems review (narrative): The remainder of the systems are negative. Constitutional: no chills, no fatigue, no fever(s) Cardiovascular: no chest pain, no dyspnea, no edema Respiratory: no cough Gastrointestinal: no change in bowel habits, no diarrhea, no nausea, no vomiting Musculoskeletal: muscle weakness, other (right hip pain ) Exam - Vital Signs Vital signs: Initial Vital Signs Temp Pulse Resp BP Pulse Ox 98.5 F 73 18 142/69 95 03/02/18 06:38 03/02/18 06:38 03/02/18 06:38 03/02/18 06:38 03/02/18 06:38 Vital Signs - Last 8 Hours Temp Pulse Resp BP Pulse Ox 03/03/18 07:55 18 96 03/03/18 07:52 98.7 F 73 20 128/63 96 03/03/18 04:23 99.4 F 72 18 138/51 96 Intake and Output 03/02/18 03/03/18 03/03/18 23:59 07:59 15:59 Intake Total 100 / 100 Balance 100 / 100 Intake: IV Fluids 100 / 100 Zosyn 3.375 GM In 0.9 % Sodium 100 / 100 Chloride (Mini-Bag +) 100 ML @ 25 mls/hr IVPB Q12HR [facility] Rx#: [id number] Other: # Voids 1 Weight 107.048 kg 115.3 kg Blood Glucose* 190 222 180 Patient Weight 03/03/18 23:59 Weight 115.3 kg - General Appearance General appearance: well-developed EENT: ATNC, hearing intact, vision intact Neck: supple Respiratory: clear Cardiology: no edema, normal S1, normal S2 - Dialysis Access Dialysis Vascular Access: Venous Catheter (Tunneled Line, DRSG C/D/I) Gastrointestinal: normoactive bowel sounds, no tenderness, no guarding Integumentary: no rash, warm and dry Neurologic: alert and oriented x3 Additional Comments: Pain with ROM of RLE. Psychiatric: mood/affect appropriate, cooperative Results - Lab Results 03/03/18 06:37 03/03/18 06:37 Most recent lab results Calcium 9.2 mg/dL (8.6-10.3) 03/03/18 06:37 Consult Discharge Plan - Plan Referrals: Jay Valenzuela DO [Primary Care Provider] -
[2018-03-03 13:11] LABS: Thyroid Stimulating Hormone 5.036 mcIU/mL (0.340-5.600)
--- NOTE | 2018-03-03 15:45 | Infectious Disease Consult ---
Date of Encounter: 03/03/18 Time of Encounter: 15:40 Assessment and Plan (1) Sepsis Status: Acute Assessment and plan: Patient had 2 sepsis criteria on admission. Likely secondary to bacteremia. White blood cell count continues to trend up today. She has been afebrile overnight. Blood cultures drawn 03/02/18 are +2 out of 2 sets for enterococcus per PCR. Recommendations: Repeat blood cultures 2 sets. Await 03/02/18 cultures and susceptibilities to finalize. Await right hip synovial fluid culture to finalize. Will discuss with nephrology to see if we can remove the HD line or if we need to attempt to salvage it. Get TTE. Continue Vancomycin IV. Pharmacy to dose. Goal trough ~15. Discontinue Zosyn. Duration of treatment depends on the clinical picture. Monitor renal function and for drug toxicity and dose-adjust antibiotics. Qualifiers: Qualified Code(s): A41.9 - Sepsis, unspecified organism (2) Bacteremia Status: Acute Assessment and plan: Causative organism: Enterococcus per PCR. Source: Unclear, HD catheter (clinically does not appear infected) vs. intra- abdominal (CT negative) vs. right hip (synovial fluid culture no growth) vs. oth er. Blood cultures drawn 03/02/18 are positive 2/2 sets (peripheral) for Enterococcus per PCR. No Sil/B resistance gene noted. No endocarditis stigmata noted on exam. The patient has one major and one minor Modified Barron's criteria. Currently on Vanc and Zosyn. (3) Osteoarthritis of right hip Status: Acute Assessment and plan: CT of the right hip showed no acute fracture or dislocation with minimal degenerative changes at the right hip joint space. Status post CT-guided arthrocentesis 03/02/18 by IR. 1ml clear fluid aspirated. Unable to do cell count do to volume of the fluid. Gram stain negative, culture is no growth. Low index of suspicion of septic arthritis (either seeding or source of bacteremia). Pain management per the primary team. Qualifiers: Osteoarthritis type: unspecified Qualified Code(s): M16.11 - Unilateral primary osteoarthritis, right hip (4) Hyponatremia Status: Acute Assessment and plan: Nephrology consulted and following. (5) Constipation Status: Acute Assessment and plan: Reports no BM x 4-5 days. Bowel regimen per the primary team. Qualifiers: Constipation type: unspecified constipation type Qualified Code(s): K59.00 - Constipation, unspecified (6) CAD (coronary artery disease) Status: Chronic Qualifiers: Coronary Disease-Associated Artery/Lesion type: [place] artery [place] vs. transplanted heart: [place] heart Associated angina: without angina Qualified Code(s): I25.10 - Atherosclerotic heart disease of [place] coronary artery without angina pectoris (7) Obesity Status: Chronic Qualifiers: Obesity type: unspecified obesity type Obesity classification: adult class 3 (BMI >= 40) Serious obesity comorbidity presence: with serious comorbidity Body mass index: BMI 45.0-49.9 Qualified Code(s): E66.01 - Morbid (severe) obesity due to excess calories; Z68.42 - Body mass index (BMI) 45.0-49.9, adult (8) Diabetes mellitus Status: Chronic Qualifiers: Diabetes mellitus type: type 2 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: with refrigerator 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 use Diabetes mellitus complication status: with kidney complications Diabetes mellitus complication detail: with chronic kidney disease Chronic kidney disease stage: stage 4 (severe) Qualified Code(s): E11.22 - Type 2 diabetes mellitus with diabetic chronic kidney disease; N18.4 - Chronic kidney disease, stage 4 (severe); Z79.4 - residential (current) use of insulin (9) COPD (chronic obstructive pulmonary disease) Status: Acute Qualifiers: COPD type: unspecified COPD Qualified Code(s): J44.9 - Chronic obstructive pulmonary disease, unspecified (10) CCF (congestive cardiac failure) Status: Acute Qualifiers: Heart failure type: diastolic Heart failure chronicity: unspecified Qualified Code(s): I50.30 - Unspecified diastolic (congestive) heart failure (11) ESRD (end stage renal disease) on dialysis Status: Acute Assessment and plan: Nephrology consulted and following. Infectious Disease HPI - Data of Consult Patient: known to practice within the last 3 years Consult date: 03/03/18 Requesting Physician: Flash Serrano MD Primary Care Provider: Jay Valenzuela - Consult Narrative Reason for consult: Bacteremia History of present illness: Ms. Garcia is a 67 year old female with a past medical history of CHF, COPD, di abetes, hypertension, rheumatoid arthritis not currently on any treatment, and chronic kidney disease recently started on hemodialysis Thursday, , and Thursday via a left upper chest permacath. The patient was admitted to the hospital 03/02/18 for right hip pain, bacteriuria, and leukocytosis. We are consulted 03/03/18 for antibiotic recommendations for bacteremia. Briefly, the patient is a 67-year-old female known to the ID service as we are consulted during her inpatient stay back in November. At that time, she was diagnosed with MRSA bacteremia of an unclear source, but was thought to be possibly secondary to her dialysis catheter. Dialysis catheter was removed and she underwent a line holiday and had a line replaced on 12/21/17. Her DALE was negative and she was treated with 2 weeks of IV vancomycin at dialysis. She reports that she presented to the ER yesterday with complaints of right hip pain that started on Thursday and progressively got worse. She denies any known trauma. She states that for 2 days prior to admission she felt nauseated, but had no vomiting. She also reported some headache and subjective fevers. Upon arrival, she was afebrile and hemodynamically stable. She did spike a temp on the ER with a MAXIMUM TEMPERATURE of 100.5. She had leukocytosis with neutrophilic predominance. Her serum creatinine was indicative of her end-stage renal disease. ESR was elevated at 100 with a CRP of 86. Urinalysis was positive for small amounts of leukocyte esterase and 30-50 white blood cells, but the culture is negative. She had her right hip x-ray that was negative. CT of the hip was negative for acute abnormality. DVT study of the right lower extremity was negative and blood cultures obtained in the emergency department came back +2 out of 2 sets for enterococcus per the PCR. She underwent a CT- guided arthrocentesis by the interventional radiology department. One mL of clear fluid was aspirated. There is too little fluid to perform cell count, but the Gram stain is negative and the culture is no growth. She was started empirically on IV vancomycin and Zosyn and was admitted to the hospital for further evaluation. Since admission, has gone up to 21,000 with neutrophilic predominance. Nephrology's been consulted to assist with her dialysis management. Currently, she is on Vanco and Zosyn. We have been asked to evaluate and make further recommendations. During my exam today, the patient endorsed a history as stated above. 10 point review of systems has been completed and is negative except as previously mentioned above. The patient lives at home with her daughter. She does not work outside the home. She smokes a half pack cigarettes per day. She denies alcohol or illicit drug use. She not denies any chronic infectious diseases. She denies any travel outside the [facility]. CC: Flash Serrano MD Past Med Surg Social Fam HX - Past Medical History Attestation: Yes The following information was validated with the patient. Source: patient, old records reviewed, nursing notes reviewed Medical history: arthritis, CHF, COPD, diabetes, GERD, hyperlipidemia, hypertension, RA, renal disease Additional medical history: HUSAM, Morbid obesity Psychiatric history: anxiety, bipolar - Past Surgical History Surgical History: angioplasty/stent, appendectomy, , cataract Additional surgical history: 1 cardiac stent - Social History Smoking Status: Current every day smoker Packs per day: 0.5 Smokeless Tobacco Status: No Alcohol use: none Drug use: none Occupational status: unemployed Current living situation: Home, With Family Activity Level: Independent ambulation Recent Out of Country Travel Within the Last 8 Weeks: No Exposure or Possible Exposure to Illness During Travel: No - Family History Brother History Unknown: Yes Hx Family Endocrine Disorder: Yes (DM) Father Living Status: Hx Family Cardiac Disorders: Yes Hx Family Neurologic Disorders: Yes (Brain aneurysm) Mother Living Status: Still Living Hx Family Cardiac Disorders: Yes Hx Family Respiratory Disorders: Yes (copd) Hx Family Cancer: Yes Hx Family Neurologic Disorders: Yes (alzheimer) Sister History Unknown: Yes Living Status: Hx Family Endocrine Disorder: Yes (DM) Infectious Disease-CN:Meds RX: ALPRAZolam [Xanax 1 MG Tablet] 1 mg PO BID 04/15/17 [History] RX: Clopidogrel [Plavix] 75 mg PO DAILY 04/15/17 [History] RX: DULoxetine [Cymbalta] 30 mg PO BID 04/15/17 [History] RX: Famotidine [Heartburn Prevention] 20 mg PO BID 04/15/17 [History] RX: risperiDONE [Risperidone] 1 mg PO HS 04/15/17 [History] RX: Ranolazine [Ranexa] 500 mg PO BID 07/23/17 [History] RX: Rosuvastatin [Crestor] 40 mg PO QPM 07/23/17 [History] RX: Budesonide/Formoterol 160/4.5 [Symbicort 160/4.5] 2 puff IH BIDR 09/28/17 [H istory] RX: HYDROcodone/Acet 5/325 mg [Monarch 5-325 mg] 1 tab PO BID PRN 09/28/17 [History] RX: Tiotropium [Spiriva] 1 puff IH DAILY 09/28/17 [History] RX: Hydralazine HCl 100 mg PO TID #90 tablet 10/04/17 [Rx] RX: Carvedilol [Coreg] 25 mg PO BIDWM 30 Days #30 tablet 11/21/17 [Rx] RX: cloNIDine HCl [CloNIDine HCl] 0.1 mg PO TID 30 Days #90 tablet 11/21/17 [Rx] RX: metOLazone [Zaroxolyn] 5 mg PO DAILY@0730 30 Days #30 tablet 11/21/17 [Rx] RX: Aspirin [Lo-Dose Aspirin EC] 81 mg PO DAILY 12/15/17 [History] RX: Insulin Regular U-500 [HumuLIN R U-500] 70 unit SQ TID 12/15/17 [History] RX: NIFEdipine [Nifedipine ER] 90 mg PO DAILY 12/15/17 [History] RX: Sevelamer [Renvela] 800 mg PO TID 12/15/17 [History] RX: Trazodone HCl 100 mg PO HS 12/15/17 [History] RX: Albuterol Sulfate [Albuterol Inhaler] 2 puff IH Q6H PRN inhaler 12/21/17 [Rx] Fenofibrate Nanocrystallized [Fenofibrate] 160 mg PO DAILY 03/02/18 [History] Furosemide [Lasix] 20 mg PO DAILY 03/02/18 [History] Allergy/AdvReac Type Severity Reaction Status Date / Time morphine Allergy Hallucinati Verified 03/02/18 06:36 ng Sulfa (Sulfonamide Allergy Rash Verified 03/02/18 06:36 Antibiotics) All systems: reviewed and no additional remarkable complaints except as stated Exam - Constitutional Vitals: Temp Pulse Resp BP Pulse Ox 97.4 F L 73 18 101/44 96 03/03/18 14:00 03/03/18 07:52 03/03/18 14:00 03/03/18 14:00 03/03/18 07:55 General appearance: cooperative, morbidly obese, no acute distress - Head Head exam: Present: atraumatic, normal inspection, normocephalic - Eye Eye exam: Present: EOMI, normal appearance, PERRL Pupils: Present: normal accommodation Additional comments: No subconjunctival hemorrhage noted. - ENT ENT exam: Present: mucous membranes dry - Neck Neck exam: Present: normal inspection - Respiratory Respiratory exam: Present: CTAB. Absent: rales, respiratory distress, rhonchi, wheezes - Cardiovascular Cardiovascular exam: Present: RRR, +S1, +S2 - GI/Abdominal GI/Abdominal exam: Present: distended (more than normal per patient.), normal bowel sounds, soft, tenderness (generalized) - Extremities Exam Extremities exam: Present: pedal edema (1+ RLE). Absent: joint swelling, normal inspection (Venous stasis dermatitis noted to the RLE.), tenderness - Back Exam Back exam: Present: normal inspection, paraspinal tenderness (Right lower back) - Expanded Back Exam Back exam: negative straight leg raising: Left, positive straight leg raise: Right - Neurological Exam Neurological exam: Present: alert, oriented X3, no focal deficits - Psychiatric Psychiatric exam: Present: normal affect, normal mood - Skin Skin exam: Present: dry, intact, normal color, warm Additional comments: No endocarditis stigmata noted. - Additional findings Additional findings: Perma-cath noted to the left upper chest with transparent dressing C/D/I. No erythema, warmth, tenderness, or drainage noted. Infectious Disease CN: Results - Labs CBC & Chem 7: 03/04/18 04:23 03/04/18 04:23 Cultures: Cultures 03/02/18 14:47 Body Fluid Culture - Preliminary Synovial Fluid 03/02/18 07:25 Urine Culture - Final Urine,Clean Catch 03/02/18 07:50 Blood Culture - Preliminary Peripheral Venipuncture Gram Positive Cocci 03/02/18 07:55 Blood Culture - Preliminary Peripheral Venipuncture Gram Positive Cocci Serology: Serology 03/02/18 03/02/18 03/02/18 Range/Units 16:28 14:47 07:55 Urine Color (Yellow) Urine Clarity (Clear) Urine pH (5.0-8.0) pH Units Ur Specific [place] (1.010-1.025) Urine Protein (Neg-Trace) mg/dL Urine Glucose (UA) (Normal) mg/dL Urine Ketones (Negative) mg/dL Urine Blood (Negative) Urine Nitrite (Negative) Urine Bilirubin (Negative) Urine Urobilinogen (Normal) mg/dL Ur Leukocyte Esterase (Negative) Urine Microscopic RBC (0-3) per hpf Urine Microscopic WBC (0-3) per hpf Ur Squamous Epith Cells (None-Few) per lpf Ur Transition Epith Cell (None-Few) per hpf Ur Renal Epithelial Cell (None-Few) per hpf Urine Bacteria (None-Few) per hpf Hyaline Casts (None-Few) per lpf Urine Yeast (None Seen) per hpf Ur Culture Indicated? (NO) Synovial Source right hip Synovial Color Colorless (Straw) Synovial Appearance Clear (Clear-Hazy) Synovial Volume 1.0 mL Synovial RBC TNP Synovial Tot Nuc Cell TNP Synovial Band Neuts TNP Synovial Basophils TNP Synovial Eosinophils TNP Synovial Seg Neuts % TNP Synovial Lymphocytes % TNP Synovial Monocytes % TNP Synovial Other Cells % TNP A. baumannii (PCR) Not Detected (Not Detect) [place] albicans (PCR) Not Detected (Not Detect) C. glabrata (PCR) Not Detected (Not Detect) C. krusei (PCR) Not Detected (Not Detect) C. parapsilosis (PCR) Not Detected (Not Detect) C. tropicalis (PCR) Not Detected (Not Detect) Enterobacteriac sp PCR Not Detected (Not Detect) E. cloacae complex PCR Not Detected (Not Detect) Enterococcus sp PCR DETECTED A (Not Detect) E. coli (PCR) Not Detected (Not Detect) H. influenzae (PCR) Not Detected (Not Detect) Hep Bs Antigen Nonreactive (Nonreactive) Hep Bs Antibody < 3.10 L (10.00 - ) mIU/mL Klebsiella oxytoca PCR Not Detected (Not Detect) Klebsiella pneumoniae Not Detected (Not Detect) List. monocytogenes PCR Not Detected (Not Detect) N. meningitidis (PCR) Not Detected (Not Detect) Proteus species (PCR) Not Detected (Not Detect) Serratia marcescens PCR Not Detected (Not Detect) Staphylococcus sp PCR Not Detected (Not Detect) Staph aureus (PCR) Not Detected (Not Detect) mecA-Methicil Res Gene N/A (Not Detect) Streptococcus sp PCR Not Detected (Not Detect) Group A Strep DNA Not Detected (Not Detect) Group B Strep (PCR) Not Detected (Not Detect) Strep pneumoniae (PCR) Not Detected (Not Detect) P. aeruginosa (PCR) Not Detected (Not Detect) Sil/B-Vanco Res Genes Not Detected (Not Detect) KPC (blaKPC) Detect PCR N/A (Not Detect) 03/02/18 Range/Units 07:25 Urine Color Yellow (Yellow) Urine Clarity Hazy A (Clear) Urine pH 6.0 (5.0-8.0) pH Units Ur Specific [place] 1.009 L (1.010-1.025) Urine Protein >=300 H (Neg-Trace) mg/dL Urine Glucose (UA) 100 H (Normal) mg/dL Urine Ketones Negative (Negative) mg/dL Urine Blood Negative (Negative) Urine Nitrite Negative (Negative) Urine Bilirubin Negative (Negative) Urine Urobilinogen Normal (Normal) mg/dL Ur Leukocyte Esterase Small H (Negative) Urine Microscopic RBC 0-3 (0-3) per hpf Urine Microscopic WBC 30-50 H (0-3) per hpf Ur Squamous Epith Cells Few (None-Few) per lpf Ur Transition Epith Cell Few (None-Few) per hpf Ur Renal Epithelial Cell Few (None-Few) per hpf Urine Bacteria None Seen (None-Few) per hpf Hyaline Casts None Seen (None-Few) per lpf Urine Yeast Few H (None Seen) per hpf Ur Culture Indicated? YES A (NO) Synovial Source Synovial Color (Straw) Synovial Appearance (Clear-Hazy) Synovial Volume mL Synovial RBC Synovial Tot Nuc Cell Synovial Band Neuts Synovial Basophils Synovial Eosinophils Synovial Seg Neuts % Synovial Lymphocytes % Synovial Monocytes % Synovial Other Cells % A. baumannii (PCR) (Not Detect) [place] albicans (PCR) (Not Detect) C. glabrata (PCR) (Not Detect) C. krusei (PCR) (Not Detect) C. parapsilosis (PCR) (Not Detect) C. tropicalis (PCR) (Not Detect) Enterobacteriac sp PCR (Not Detect) E. cloacae complex PCR (Not Detect) Enterococcus sp PCR (Not Detect) E. coli (PCR) (Not Detect) H. influenzae (PCR) (Not Detect) Hep Bs Antigen (Nonreactive) Hep Bs Antibody (10.00 - ) mIU/mL Klebsiella oxytoca PCR (Not Detect) Klebsiella pneumoniae (Not Detect) List. monocytogenes PCR (Not Detect) N. meningitidis (PCR) (Not Detect) Proteus species (PCR) (Not Detect) Serratia marcescens PCR (Not Detect) Staphylococcus sp PCR (Not Detect) Staph aureus (PCR) (Not Detect) mecA-Methicil Res Gene (Not Detect) Streptococcus sp PCR (Not Detect) Group A Strep DNA (Not Detect) Group B Strep (PCR) (Not Detect) Strep pneumoniae (PCR) (Not Detect) P. aeruginosa (PCR) (Not Detect) Sil/B-Vanco Res Genes (Not Detect) KPC (blaKPC) Detect PCR (Not Detect) Consult Discharge Plan - Plan Referrals: Jay Valenzuela DO [Primary Care Provider] - (office will call patient for an appointment when there is sooner available) - Attending Attestation I examined this patient and my medical decision-making was reviewed with the Resident Physician. I agree with the documented findings, disposition and treatment plan as described except to the extent set forth below. This is an addendum to original report dictated by Edel Cuadra CNP. Please refer to Edel's note for full detail. Patient is 67-year-old woman with past medical history mentioned below presented to [facility] with sepsis like picture and was noted to be septic and bacteremic with enterococcus species PCR cultures are pending. Patient also has new sudden onset hip pain on the right therefore interventional radiology was consulted and they tapped the patient's. Minimal fluid was taken out with no purulence. Gram stain and cultures were negative. Patient also had a CT of the head which showed no acute process. We were asked to evaluate the patient make further recommendations. Currently patient laying in bed appears comfortable. She is actually able to move her hip with no pain on passive or active movement. Rest of the physical exam as per above. Assessment and plan: Sepsis Enterococcus bacteremia 2 out of 2 sets Right hip pain etiology not clear does not appear to be septic arthritis per CT scan or arthrocentesis Recommendations: Repeat blood cultures 2 sets. Await 03/02/18 cultures and susceptibilities to finalize. Await right hip synovial fluid culture to finalize. Will discuss with nephrology to see if we can remove the HD line or if we need to attempt to salvage it. Get TTE. Continue Vancomycin IV. Pharmacy to dose. Goal trough ~15. Discontinue Zosyn. Duration of treatment depends on the clinical picture. Monitor renal function and for drug toxicity and dose-adjust antibiotics.
[2018-03-03] MEDS: Famotidine 20 MG TABLET PO SCH (21:18)
[2018-03-03] MEDS: traZODone 50 MG TABLET PO SCH (21:19)
[2018-03-03] MEDS: risperiDONE 1 MG TABLET PO SCH (21:19)
[2018-03-04] MEDS: hydrALAZINE 25 MG TABLET PO SCH ×4 (00:10→21:53)
[2018-03-04] MEDS: cloNIDine HCl 0.1 MG TABLET PO SCH ×4 (00:10→21:53)
[2018-03-04 04:41] LABS: Hematocrit 36.4 % (35.3-44.9); Hemoglobin 11.8 g/dL (11.5-15.4); Mean Corpuscular HGB Conc 32.4 g/dL (31.6-35.5); Mean Corpuscular Hemoglobin 27.5 pg (28.0-33.3); Mean Corpuscular Volume 84.8 fL (83.0-100.0); Mean Platelet Volume 9.3 fL (9.4-12.4); Platelet Count 184 K/mcL (140-400); Red Blood Count 4.29 M/mcL (3.82-4.97); Red Cell Distribution Width 15.9 % (11.5-14.5)
[2018-03-04 04:59] LABS: Potassium 3.8 mEq/L (3.5-5.1)
[2018-03-04] MEDS: ALPRAZolam 1 MG TABLET PO SCH ×3 (05:04→21:56)
[2018-03-04] MEDS: Piperacillin/Tazobactam 3.375 GM in 0.9 % Sodium Chloride Mini Bag 100 ML IVPB SCH (05:05)
[2018-03-04] MEDS: *HR* Heparin 5,000 UNIT/ML VIAL SQ SCH ×2 (05:05→17:20)
[2018-03-04] MEDS ORDERED: 0.9 % Sodium Chloride 250 ML IVC PRN (07:05)
[2018-03-04] MEDS: Budesonide/Formoterol 160/4.5 1 PUFF INH IH SCH ×2 (07:25→20:26)
[2018-03-04] MEDS: Tiotropium 18 MCG inhalation IH SCH (07:28)
[2018-03-04] MEDS: metOLazone 5 MG TABLET PO SCH (09:21)
[2018-03-04] MEDS: Insulin LISPRO 300 UNITS/3 ML VIAL SQ SCH ×4 (09:21→21:54)
[2018-03-04] MEDS: Furosemide 20 MG TABLET PO SCH (09:22)
[2018-03-04] MEDS: NIFEdipine XL (24 HR) 30 MG TAB.ER.24 PO SCH (09:22)
[2018-03-04] MEDS: Aspirin Enteric Coated 81 MG Tablet PO SCH (09:33)
[2018-03-04] MEDS: Ranolazine 500 MG TAB.ER.12H PO SCH ×2 (09:33→21:56)
[2018-03-04] MEDS: Fenofibrate 54 MG TABLET PO SCH (09:34)
--- NOTE | 2018-03-04 09:37 | Infectious Disease Progress No ---
Date of Encounter: 03/04/18 Time of Encounter: 09:35 - Assessment and Plan (1) Sepsis Current Visit: No Status: Acute Patient had 2 sepsis criteria on admission. Likely secondary to bacteremia. White blood cell count continues to trend up today. She has been afebrile overnight. Blood cultures drawn 03/02/18 are +2 out of 2 sets for enterococcus per PCR. Repeat blood cultures drawn 03/04/18 are pending x 2 sets. Recommendations: Await 03/02/18 cultures and susceptibilities to finalize. Check ESR and CRP. Await repeat blood cultures. Await right hip synovial fluid culture to finalize. Will discuss with nephrology to see if we can remove the HD line or if we need to attempt to salvage it. Get TTE. Consider MRI of the lumbar spine. Continue Vancomycin IV. Pharmacy to dose. Goal trough ~15. Duration of treatment depends on the clinical picture. Monitor renal function and for drug toxicity and dose-adjust antibiotics. Qualifiers: Qualified Code(s): A41.9 - Sepsis, unspecified organism (2) Bacteremia Current Visit: No Status: Acute Causative organism: Enterococcus per PCR. Source: Unclear, HD catheter (clinically does not appear infected) vs. intra- abdominal (CT negative) vs. right hip (synovial fluid culture no growth) vs. other. Blood cultures drawn 03/02/18 are positive 2/2 sets (peripheral) for Enterococcus per PCR. No Sil/B resistance gene noted. No endocarditis stigmata noted on exam. The patient has one major and one minor Modified Barron's criteria. Currently on Vanc. (3) Osteoarthritis of right hip Current Visit: Yes Status: Acute CT of the right hip showed no acute fracture or dislocation with minimal degenerative changes at the right hip joint space. Status post CT-guided arthrocentesis 03/02/18 by IR. 1ml clear fluid aspirated. Unable to do cell count do to volume of the fluid. Gram stain negative, culture is no growth. Low index of suspicion of septic arthritis (either seeding or source of bacteremia). Pain management per the primary team. Qualifiers: Osteoarthritis type: unspecified Qualified Code(s): M16.11 - Unilateral primary osteoarthritis, right hip (4) Hyponatremia Current Visit: Yes Status: Acute Nephrology consulted and following. (5) Constipation Current Visit: No Status: Acute Reports no BM x 4-5 days. Bowel regimen per the primary team. Qualifiers: Constipation type: unspecified constipation type Qualified Code(s): K59.00 - Constipation, unspecified (6) CAD (coronary artery disease) Current Visit: No Status: Chronic Qualifiers: Coronary Disease-Associated Artery/Lesion type: [place] artery [place] vs. transplanted heart: solomon heart Associated angina: without angina Qualified Code(s): I25.10 - Atherosclerotic heart disease of solomon coronary artery without angina pectoris (7) Obesity Current Visit: No Status: Chronic Qualifiers: Obesity type: unspecified obesity type Obesity classification: adult class 3 (BMI >= 40) Serious obesity comorbidity presence: with serious comorbidity Body mass index: BMI 45.0-49.9 Qualified Code(s): E66.01 - Morbid (severe) obesity due to excess calories; Z68.42 - Body mass index (BMI) 45.0-49.9, adult (8) Diabetes mellitus Current Visit: No Status: Chronic Qualifiers: Diabetes mellitus type: type 2 Diabetes mellitus detention insulin use: with detention use Diabetes mellitus complication status: with kidney complications Diabetes mellitus complication detail: with chronic kidney disease Chronic kidney disease stage: stage 4 (severe) Qualified Code(s): E11.22 - Type 2 diabetes mellitus with diabetic chronic kidney disease; N18.4 - Chronic kidney disease, stage 4 (severe); 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 (12) Back pain Current Visit: Yes Status: Acute Etiology unclear. Consider MRI of the l-spine. Pain management per the primary team. Qualifiers: Back pain location: low back pain Chronicity: acute Back pain laterality: midline Sciatica presence: unspecified whether sciatica present Qualified Code(s): M54.5 - Low back pain - Subjective Interval history: Patient seen and examined. No acute events noted overnight. Patient currently in the HD unit. States she had a rough night with severe right hip and lower back pain. Denies fevers, chills, or rigors. Denies chest pain, shortness of breath, or cough. Denies nausea, vomiting, diarrhea. States she has not had a BM in a few days. Denies urinary complaints or abdominal pain. States her appetite is poor. Denies oral thrush or new skin lesions. Infect Dis PN-Objective Data - Labs CBC & Chem 7: 03/04/18 04:23 03/04/18 04:23 Labs: Laboratory Results - last 24 hr 03/03/18 03/03/18 03/03/18 12:11 12:11 17:04 WBC RBC Hgb Hct MCV MCH MCHC RDW Plt Count MPV Sodium Potassium Chloride Carbon Dioxide BUN Creatinine Est GFR ( Amer) Est GFR (Non-Af Amer) BUN/Creatinine Ratio Glucose POC Glucose 181 H Serum Osmolality 282 Calculated Osmolality Calcium TSH 5.036 Random Cortisol 23.4 Random Vancomycin 03/03/18 03/04/18 03/04/18 20:49 04:23 04:23 WBC 22.7 H RBC 4.29 Hgb 11.8 Hct 36.4 MCV 84.8 MCH 27.5 L MCHC 32.4 RDW 15.9 H Plt Count 184 MPV 9.3 L Sodium 130 L Potassium 3.8 Chloride 93 L Carbon Dioxide 24 BUN 40 H Creatinine 5.06 H Est GFR ( Amer) 10 L Est GFR (Non-Af Amer) 9 L BUN/Creatinine Ratio 8 Glucose 135 H POC Glucose 207 H Serum Osmolality Calculated Osmolality 282 Calcium 9.0 TSH Random Cortisol Random Vancomycin 03/04/18 04:23 WBC RBC Hgb Hct MCV MCH MCHC RDW Plt Count MPV Sodium Potassium Chloride Carbon Dioxide BUN Creatinine Est GFR ( Amer) Est GFR (Non-Af Amer) BUN/Creatinine Ratio Glucose POC Glucose Serum Osmolality Calculated Osmolality Calcium TSH Random Cortisol Random Vancomycin 17 Cultures: Cultures 03/02/18 07:50 Blood Culture - Preliminary Peripheral Venipuncture Gram Positive Cocci 03/02/18 07:55 Blood Culture - Preliminary Peripheral Venipuncture Gram Positive Cocci 03/02/18 14:47 Body Fluid Culture - Preliminary Synovial Fluid 03/02/18 07:25 Urine Culture - Final Urine,Clean Catch Serology 03/02/18 03/02/18 03/02/18 Range/Units 16:28 14:47 07:55 Urine Color (Yellow) Urine Clarity (Clear) Urine pH (5.0-8.0) pH Units Ur Specific [place] (1.010-1.025) Urine Protein (Neg-Trace) mg/dL Urine Glucose (UA) (Normal) mg/dL Urine Ketones (Negative) mg/dL Urine Blood (Negative) Urine Nitrite (Negative) Urine Bilirubin (Negative) Urine Urobilinogen (Normal) mg/dL Ur Leukocyte Esterase (Negative) Urine Microscopic RBC (0-3) per hpf Urine Microscopic WBC (0-3) per hpf Ur Squamous Epith Cells (None-Few) per lpf Ur Transition Epith Cell (None-Few) per hpf Ur Renal Epithelial Cell (None-Few) per hpf Urine Bacteria (None-Few) per hpf Hyaline Casts (None-Few) per lpf Urine Yeast (None Seen) per hpf Ur Culture Indicated? (NO) Synovial Source right hip Synovial Color Colorless (Straw) Synovial Appearance Clear (Clear-Hazy) Synovial Volume 1.0 mL Synovial RBC TNP Synovial Tot Nuc Cell TNP Synovial Band Neuts TNP Synovial Basophils TNP Synovial Eosinophils TNP Synovial Seg Neuts % TNP Synovial Lymphocytes % TNP Synovial Monocytes % TNP Synovial Other Cells % TNP A. baumannii (PCR) Not Detected (Not Detect) Kerry albicans (PCR) Not Detected (Not Detect) C. glabrata (PCR) Not Detected (Not Detect) C. krusei (PCR) Not Detected (Not Detect) C. parapsilosis (PCR) Not Detected (Not Detect) C. tropicalis (PCR) Not Detected (Not Detect) Enterobacteriac sp PCR Not Detected (Not Detect) E. cloacae complex PCR Not Detected (Not Detect) Enterococcus sp PCR DETECTED A (Not Detect) E. coli (PCR) Not Detected (Not Detect) H. influenzae (PCR) Not Detected (Not Detect) Hep Bs Antigen Nonreactive (Nonreactive) Hep Bs Antibody < 3.10 L (10.00 - ) mIU/mL Klebsiella oxytoca PCR Not Detected (Not Detect) Klebsiella pneumoniae Not Detected (Not Detect) List. monocytogenes PCR Not Detected (Not Detect) N. meningitidis (PCR) Not Detected (Not Detect) Proteus species (PCR) Not Detected (Not Detect) Serratia marcescens PCR Not Detected (Not Detect) Staphylococcus sp PCR Not Detected (Not Detect) Staph aureus (PCR) Not Detected (Not Detect) mecA-Methicil Res Gene N/A (Not Detect) Streptococcus sp PCR Not Detected (Not Detect) Group A Strep DNA Not Detected (Not Detect) Group B Strep (PCR) Not Detected (Not Detect) Strep pneumoniae (PCR) Not Detected (Not Detect) P. aeruginosa (PCR) Not Detected (Not Detect) Sil/B-Vanco Res Genes Not Detected (Not Detect) KPC (blaKPC) Detect PCR N/A (Not Detect) 03/02/18 Range/Units 07:25 Urine Color Yellow (Yellow) Urine Clarity Hazy A (Clear) Urine pH 6.0 (5.0-8.0) pH Units Ur Specific [place] 1.009 L (1.010-1.025) Urine Protein >=300 H (Neg-Trace) mg/dL Urine Glucose (UA) 100 H (Normal) mg/dL Urine Ketones Negative (Negative) mg/dL Urine Blood Negative (Negative) Urine Nitrite Negative (Negative) Urine Bilirubin Negative (Negative) Urine Urobilinogen Normal (Normal) mg/dL Ur Leukocyte Esterase Small H (Negative) Urine Microscopic RBC 0-3 (0-3) per hpf Urine Microscopic WBC 30-50 H (0-3) per hpf Ur Squamous Epith Cells Few (None-Few) per lpf Ur Transition Epith Cell Few (None-Few) per hpf Ur Renal Epithelial Cell Few (None-Few) per hpf Urine Bacteria None Seen (None-Few) per hpf Hyaline Casts None Seen (None-Few) per lpf Urine Yeast Few H (None Seen) per hpf Ur Culture Indicated? YES A (NO) Synovial Source Synovial Color (Straw) Synovial Appearance (Clear-Hazy) Synovial Volume mL Synovial RBC Synovial Tot Nuc Cell Synovial Band Neuts Synovial Basophils Synovial Eosinophils Synovial Seg Neuts % Synovial Lymphocytes % Synovial Monocytes % Synovial Other Cells % A. baumannii (PCR) (Not Detect) [place] albicans (PCR) (Not Detect) C. glabrata (PCR) (Not Detect) C. krusei (PCR) (Not Detect) C. parapsilosis (PCR) (Not Detect) C. tropicalis (PCR) (Not Detect) Enterobacteriac sp PCR (Not Detect) E. cloacae complex PCR (Not Detect) Enterococcus sp PCR (Not Detect) E. coli (PCR) (Not Detect) H. influenzae (PCR) (Not Detect) Hep Bs Antigen (Nonreactive) Hep Bs Antibody (10.00 - ) mIU/mL Klebsiella oxytoca PCR (Not Detect) Klebsiella pneumoniae (Not Detect) List. monocytogenes PCR (Not Detect) N. meningitidis (PCR) (Not Detect) Proteus species (PCR) (Not Detect) Serratia marcescens PCR (Not Detect) Staphylococcus sp PCR (Not Detect) Staph aureus (PCR) (Not Detect) mecA-Methicil Res Gene (Not Detect) Streptococcus sp PCR (Not Detect) Group A Strep DNA (Not Detect) Group B Strep (PCR) (Not Detect) Strep pneumoniae (PCR) (Not Detect) P. aeruginosa (PCR) (Not Detect) Sil/B-Vanco Res Genes (Not Detect) KPC (blaKPC) Detect PCR (Not Detect) Exam - Constitutional Vitals: Temp Pulse Resp BP Pulse Ox 98.5 F 72 18 145/65 92 03/04/18 07:43 03/04/18 07:43 03/04/18 07:43 03/04/18 07:43 03/04/18 07:43 General appearance: cooperative, morbidly obese, no acute distress - Head Head exam: Present: atraumatic, normal inspection, normocephalic - Eye Eye exam: Present: EOMI, normal appearance, PERRL Pupils: Present: normal accommodation Additional comments: No subconjunctival hemorrhage noted. - ENT ENT exam: Present: mucous membranes dry - Neck Neck exam: Present: normal inspection - Respiratory Respiratory exam: Present: CTAB. Absent: rales, respiratory distress, rhonchi, wheezes - Cardiovascular Cardiovascular exam: Present: RRR, +S1, +S2 - GI/Abdominal GI/Abdominal exam: Present: distended (obese), normal bowel sounds, soft, tenderness (Epigastric) - Extremities Exam Extremities exam: Absent: normal inspection (Chronic venous stasis changes noted to the RLE with 1+ edema. No erythema, warmth, or tenderness noted.) - Back Exam Back exam: Present: paraspinal tenderness (Right lower back), vertebral tenderness (Lumbar spine) - Neurological Exam Neurological exam: Present: alert, oriented X3, no focal deficits - Psychiatric Psychiatric exam: Present: normal affect, normal mood - Skin Skin exam: Present: dry, intact, normal color, warm Consult Discharge Plan - Plan Referrals: Jay Valenzuela DO [Primary Care Provider] - (office will call patient for an appointment when there is sooner available) - Attending Attestation I examined this patient and my medical decision-making was reviewed with the Resident Physician. I agree with the documented findings, disposition and treatment plan as described except to the extent set forth below.
--- NOTE | 2018-03-04 10:07 | Nephrology Progress Note ---
Addendum entered and electronically signed by Naveed Bernal, 03/04/18 14:09: I have personally performed a face to face evaluation on this patient. I have reviewed and agree with the care plan. History and Exam by me shows: ESRD on HD TTS and should resume her typical HD regimen today. However again today the Permacath did not flow well and affected her treatment (she was not able to remain on for the full duration). This Permacath had an usual tie holding it in place and prevented the typical Permacath rotation and position. Also she has bacteremia. I've ordered BCx via the Permacath and appreciate ID's recommendations. I recommend a Permacath exchange for today () and spoke with IR. Next tentative HD will be for Thursday. Dr. Qiu will be on-call/on-service tomorrow. Thank you. Addendum entered and electronically signed by Priscilla Huffman CNP 03/04/18 10:54: Pt's hemodialysis aborted due to malfunctioning line. Dr. Bernal spoke with IR and they are willing to do an over the wire exchange today. Will place order to culture tip of HD line, IR aware. Original Note: Date of Encounter: 03/04/18 Time of Encounter: 10:02 - Assessment and Plan (1) ESRD (end stage renal disease) on dialysis Current Visit: Yes Status: Acute Current regimen is TTS at [facility] HD in progress today, tolerating well. Pt's HD line is not functioning well. Blood cultures ordered x 2 sets today. If cultures negative, an over the wire exchange could be done. If blood cultures are positive, recommend line holiday and then replace. Renal diet Renal vitamins Strict I/O Avoid nephrotoxins and renal dose all medications. (2) Acute right hip pain Current Visit: Yes Status: Acute Per primary. (3) Osteoarthritis of right hip Current Visit: Yes Status: Acute X-ray right hip and CT pelvis reflects degenerative osteoarthritis, rule out septic arthritis. Per primary. Qualifiers: Osteoarthritis type: unspecified Qualified Code(s): M16.11 - Unilateral primary osteoarthritis, right hip (4) UTI (urinary tract infection) Current Visit: Yes Status: Acute UA + for UTI. Per primary. Qualifiers: Qualified Code(s): N39.0 - Urinary tract infection, site not specified; R31.9 - Hematuria, unspecified (5) Hyponatremia Current Visit: Yes Status: Acute NA 130, no signs and symptoms per patient. Will check serum and urine labs. Subjective Principal diagnosis: right hip pain Interval history: Pt seen and examined in the HD unit, tolerating HD well. Denies any nausea, vomiting, diarrhea. Denies fever chills. Denies shortness of breath or chest pain. Pt admits to not getting much sleep due to right hip pain and back pain. Objective - Vital Signs Vital signs: Vital Signs Temp Pulse Resp BP Pulse Ox 03/04/18 07:43 98.5 F 72 18 145/65 92 03/04/18 07:25 18 93 03/04/18 05:02 98.8 F 73 18 120/54 100 03/03/18 23:59 100.7 F H 73 19 130/64 100 03/03/18 21:00 70 127/61 03/03/18 20:01 18 94 03/03/18 16:57 98.8 F 76 20 115/42 95 03/03/18 14:00 97.4 F L 18 101/44 03/03/18 13:40 97/42 03/03/18 13:30 109/50 03/03/18 13:15 113/53 03/03/18 13:00 114/54 03/03/18 12:45 121/51 03/03/18 12:30 119/48 03/03/18 12:15 124/53 03/03/18 12:00 140/61 03/03/18 11:45 153/67 03/03/18 11:30 135/54 03/03/18 11:15 133/56 03/03/18 11:00 138/59 03/03/18 10:45 97.7 F 18 141/59 Intake and Output 03/03/18 03/04/18 03/04/18 23:59 07:59 15:59 Intake Total 100 / 100 Balance 100 / 100 Intake: IV Fluids 100 / 100 Zosyn 3.375 GM In 0.9 % Sodium 100 / 100 Chloride (Mini-Bag +) 100 ML @ 25 mls/hr IVPB Q12HR [facility] Rx#: [id number] Other: Weight 114.1 kg Blood Glucose* 207 139 Patient Weight 03/04/18 23:59 Weight 114.1 kg - General Appearance General appearance: Present: well-developed, well-nourished EENT: Present: ATNC, hearing intact, vision intact Neck: Present: supple Respiratory: Present: clear Cardiology: Present: edema (+1 pitting edema noted to bilat lower extremities.), normal S1, normal S2 Dialysis Vascular Access: Venous Catheter (DRSG C/D/I) Gastrointestinal: Present: normoactive bowel sounds, no tenderness, no guarding Integumentary: Present: no rash, warm and dry Neurologic: Present: alert and oriented x3 Musculoskeletal: Present: no deformities, no erythema Psychiatric: Present: mood/affect appropriate, cooperative - Lab 03/04/18 04:23 03/04/18 04:23 Most recent lab results Calcium 9.0 mg/dL (8.6-10.3) 03/04/18 04:23 Consult Discharge Plan - Plan Referrals: Jay Valenzuela DO [Primary Care Provider] - (office will call patient for an appointment when there is sooner available)
--- NOTE | 2018-03-04 11:28 | Internal Med Progress Note ---
Addendum entered and electronically signed by Tray Padilla 03/04/18 15:39: I am the Author of this Docs. Original Note: <Tray Padilla - Last Filed: 03/04/18 11:25> Hospitalist Progress Note - Encounter Date of Encounter: 03/04/18 - Subjective Interval History: She is 67 year old female with past medical history of arthritis, CHF, COPD, smoker,diabetes, GERD, hyperlipidemia,anxiety, bipolar, hypertension, angioplasty/stent, RA, ESRD presented to ED for pain and swelling of right hip for last 3 days and progressively getting worse recently. She is a patient of ESRD on dialyzes 3 times in a week. X-ray done in ED showed osteoarthritis of right hip and CT scan of pelvis and hip also showed degenerative arthritis of the joint. Interventional radiologist did arthrocentesis from right hip and sent for synovial fluid analysis and culture , Synovial fluid was normal. culture awaited Today during my visit the patient was lying on the bed, she was oriented to time place and person, not in acute distress, answering question appropriately, she is not febrile, tachypneic, tachycardic, she does not have any new complaints but admitted right hip pain the same as before and swelling in right lower extremity she does not have any chest pain, cough, shortness of breath, dizziness .Her vitals are stable except one episode of increased temperature in last 24 hours. She is going to do dialyzes today. Nephrology team and infectious disease team already consulted the patient. The patient is on v ancomycin IV antibiotic in renal adjustment dose. - Exam Vitals: Temp Pulse Resp BP Pulse Ox 98.3 F 74 18 124/64 92 03/04/18 11:16 03/04/18 11:10 03/04/18 11:16 03/04/18 11:16 03/04/18 11:10 Exam: Gen: Alert, awake , Oriented to time,place and person Chest: Diminished BS b/l, No crackles, No rales, No wheezing Heart: S1S2+ RRR No Murmurs Abd: Soft, NT, BS + No organomegaly Ext: Moderate swelling over right leg, restricted range of motion of right hip mostly internal rotation, tenderness over the gluteus muscle on the back of right hip. Left hip looks grossly normal except mild pitting edema. Neuro: No focal neuro deficits Psych: Normal mood Skin: No rash( - Assessment and Plan (1) SIRS (systemic inflammatory response syndrome) Current Visit: Yes Status: Acute Assessment and Plan: The patient has one episode of elevated temperature recorded 100.5 F yesterday, today the temperature is 98F The patient has UTI, white cell count 22.7 with neutrophil 19.8, blood pressure 124/64 respiration 18, pulse 72 Peripheral venipuncture blood c/s showed gram-positive cocci Blood culture showed gram-positive cocci , C/S awaited. We have started IV antibiotic vancomycin. (2) Acute right hip pain Current Visit: Yes Status: Acute Assessment and Plan: The patient has acute severe right hip pain and swelling for last 3 days , but no fever. Possibly it might be due to infection/septic arthritis Total height count is 16.6 and neutrophil 22.7, ESR 100 CRP 86 ::X-ray right hip and CT pelvis: Showed degenerative changes in right hip. We have started vancomycin as renal dose adjustment to cover gram-positive organism and will adjust antibiotic as per culture report Interventional radiologist did arthrocentesis and synovial fluid analysis and C/S has bee awaited. We will consult ID specility and Ortho as per need. (3) Osteoarthritis of right hip Current Visit: Yes Status: Acute Assessment and Plan: The patient has right hip pain for last 3 days without fever X-ray right hip and CT pelvis showed degenerative osteoarthritis We have placed on pain medication and we need to rule out possibility of septic arthritis. (4) UTI (urinary tract infection) Current Visit: Yes Status: Acute Assessment and Plan: The patient urine analysis showed UTI, urine culture awaited, urine culture mixed organism presumably possible pathogen She is on IV antibiotic. (5) Hyponatremia Current Visit: Yes Status: Acute Assessment and Plan: The patient has low serum sodium level; recent one is 130, we will monitor close ly. (6) ESRD (end stage renal disease) Current Visit: Yes Status: Acute Assessment and Plan: The patient has BUN 40/creatinine 5.06 GFR 9 She is doing dialyzes on Thursday, , Thursday She will do hemodialysis today. Nephro team already consulted the patient, appreciate the recommendation, (7) Bursitis of hip, right Current Visit: Yes Status: Acute (8) Diabetes mellitus Current Visit: Yes Status: Acute (9) CCF (congestive cardiac failure) Current Visit: Yes Status: Acute (10) DVT (deep venous thrombosis) Current Visit: Yes Status: Acute (11) COPD (chronic obstructive pulmonary disease) Current Visit: Yes Status: Acute (12) Hypertension Current Visit: Yes Status: Acute (13) CAD (coronary artery disease) Current Visit: Yes Status: Acute - Time Spent with Patient Total time spent is greater than 50% in coordination of care (as documented) at patient's floor/unit and/or counseling patient: Internal Medicine: Result - Labs CBC & Chem 7: 03/04/18 04:23 03/04/18 04:23 Labs: Short CBC 03/04/18 Range/Units 04:23 WBC 22.7 H (4.3-11.1) K/mcL Hgb 11.8 (11.5-15.4) g/dL Hct 36.4 (35.3-44.9) % Plt Count 184 (140-400) K/mcL BMP 03/04/18 04:23 Sodium 130 L Potassium 3.8 Chloride 93 L Carbon Dioxide 24 BUN 40 H Creatinine 5.06 H Glucose 135 H Calcium 9.0 - ABG Interpretation ABG results: PT/INR, D-dimer PT 12.1 Seconds (9.4-12.1) 03/02/18 07:55 Consult Discharge Plan - Plan Referrals: Jay Valenzuela DO [Primary Care Provider] - (office will call patient for an appointment when there is sooner available) <Cate Quintana - Last Filed: 03/04/18 14:53> Hospitalist Progress Note - Encounter Date of Encounter: 03/04/18 Time of Encounter: 14:43 - Exam Vitals: Temp Pulse Resp BP Pulse Ox 98.3 F 74 18 124/64 92 03/04/18 11:16 03/04/18 11:10 03/04/18 11:16 03/04/18 11:16 03/04/18 11:10 - Time Spent with Patient Total time spent is greater than 50% in coordination of care (as documented) at patient's floor/unit and/or counseling patient: Internal Medicine: Result - Labs CBC & Chem 7: 03/04/18 04:23 03/04/18 04:23 Labs: Short CBC 01/17/19 Range/Units 04:23 WBC 22.7 H (4.3-11.1) K/mcL Hgb 11.8 (11.5-15.4) g/dL Hct 36.4 (35.3-44.9) % Plt Count 184 (140-400) K/mcL BMP 03/04/18 04:23 Sodium 130 L Potassium 3.8 Chloride 93 L Carbon Dioxide 24 BUN 40 H Creatinine 5.06 H Glucose 135 H Calcium 9.0 - ABG Interpretation ABG results: PT/INR, D-dimer PT 12.1 Seconds (9.4-12.1) 03/02/18 07:55 - Attending Attestation I examined this patient and my medical decision-making was reviewed with the Resident Physician Dr. Ashley. I agree with the documented findings, disposition and treatment plan as described except to the extent set forth below. Ms. Garcia is a 67 y/o F with known ESRD on HD T/T/S , CAD s/p PCI, HTN, HLD and DM2 pt presented to ER with worsening Rt hip pain from last 3 days. She is unable to bare any weight. Also she noticed some swelling in Rt hip. She denied any CP / SOB. Pt started having fever spikes - T max: 100.7 Gen: A, A, O x3 Chest: Diminished BS b/l No crackles No rales Heart: S1S2+ RRR Ext; Moderate tenderness in Rt hip, swelling + mild erythema noticed in Rt thigh region too. a/p 1. Acute Rt hip pain 2. ?? Septic Rt hip - less likely 3. SIRS - meets SIRS criteria with elevated WBC and source of inf as Rt hip septic joint 4. Acute bacteremia with enterococci 5. Perm HD Cath on Left chest region 6. Acute UTI blood cx 4/4 G+ve cocci s/p Joint aspiration - unable to do cell count due to low volume synovial fluid cx - no growth cont empirical abx Vanc appreciate ID recommendations will order TTE ID recommend MRI of spine .. will f/u on it HD cath got removed today, send the tip for cx Will f/u on ESR and CRP 7. ESRD on HD Nephro consulted for HD <Tray Padilla P - Last Filed: 03/04/18 11:25> (3) Osteoarthritis of right hip Qualifiers: Osteoarthritis type: unspecified Qualified Code(s): M16.11 - Unilateral primary osteoarthritis, right hip (4) UTI (urinary tract infection) Qualifiers: Qualified Code(s): N39.0 - Urinary tract infection, site not specified; R31.9 - Hematuria, unspecified (7) Bursitis of hip, right Qualifiers: Hip bursitis location: other hip bursa Qualified Code(s): M70.71 - Other bursitis of hip, right hip (8) Diabetes mellitus Qualifiers: Chronic kidney disease stage: on chronic dialysis (9) CCF (congestive cardiac failure) Qualifiers: Heart failure type: diastolic Heart failure chronicity: unspecified Qualified Code(s): I50.30 - Unspecified diastolic (congestive) heart failure (10) DVT (deep venous thrombosis) Qualifiers: Qualified Code(s): I82.409 - Acute embolism and thrombosis of unspecified deep veins of unspecified lower extremity (11) COPD (chronic obstructive pulmonary disease) Qualifiers: COPD type: unspecified COPD Qualified Code(s): J44.9 - Chronic obstructive pulmonary disease, unspecified (12) Hypertension Qualifiers: Hypertension type: essential hypertension Qualified Code(s): I10 - Essential (primary) hypertension (13) CAD (coronary artery disease) Qualifiers: Qualified Code(s): I25.10 - Atherosclerotic heart disease of [place] coronary artery without angina pectoris
[2018-03-04] MEDS: Nystatin POWDER 30 GM BOTTLE TP SCH ×2 (13:55→21:56)
[2018-03-04] MEDS ORDERED: *HR* Heparin 5,000 UNIT/ML VIAL ONE (14:03)
--- NOTE | 2018-03-04 14:13 | IR Procedure Note ---
Date of procedure: 03/04/18 Consent Obtained: Verbal consent, Written consent Timeout: Correct patient and procedure verified, Correct site verified, Time out performed, Skin prep completed Local anesthetic: Lidocaine 1% Indications: Bacteremia Procedure Performed: Tunneled HD Catheter Exchange Was there an transport assistant present: No Site/Technique: Tunneled left IJ HD catheter exchanged Results/Findings: Newly replaced catheter in good position Estimated blood loss (cc): 0 Complications: None; Tolerated procedure well Post Procedure Treatment Plan: OK to use new HD catheter Specimen: Catheter tip sent for cultures
[2018-03-04] MEDS: Famotidine 20 MG TABLET PO SCH (21:56)
[2018-03-04] MEDS: risperiDONE 1 MG TABLET PO SCH (21:56)
[2018-03-04] MEDS: traZODone 50 MG TABLET PO SCH (21:57)
[2018-03-04] MEDS: *HR* HYDROcodone/Acet 5/325 mg TABLET PO PRN (22:04)
[2018-03-05 05:14] LABS: Basophils # 0.1 K/mcL (0.0-0.2); Basophils % 0.5 %; Eosinophils # 0.8 K/mcL (0.0-0.6); Eosinophils % 4.7 %; Hematocrit 36.2 % (35.3-44.9); Hemoglobin 11.4 g/dL (11.5-15.4); Immature Granulocytes % 0.5 % (0-4); Lymphocytes % 5.8 %; Mean Corpuscular HGB Conc 31.5 g/dL (31.6-35.5); Mean Corpuscular Hemoglobin 27.6 pg (28.0-33.3); Mean Corpuscular Volume 87.7 fL (83.0-100.0); Mean Platelet Volume 9.1 fL (9.4-12.4); Monocytes # 1.3 K/mcL (0.0-1.3); Monocytes % 7.6 %; Neutrophils # 13.6 K/mcL (1.6-8.9); Platelet Count 210 K/mcL (140-400); Red Blood Count 4.13 M/mcL (3.82-4.97); Segmented Neutrophils % 80.9 %
[2018-03-05 05:29] LABS: Potassium 3.8 mEq/L (3.5-5.1)
[2018-03-05] MEDS: *HR* Heparin 5,000 UNIT/ML VIAL SQ SCH ×2 (06:32→17:34)
[2018-03-05] MEDS: Budesonide/Formoterol 160/4.5 1 PUFF INH IH SCH ×2 (07:36→22:23)
[2018-03-05] MEDS: Insulin LISPRO 300 UNITS/3 ML VIAL SQ SCH ×4 (07:36→20:58)
[2018-03-05] MEDS: Tiotropium 18 MCG inhalation IH SCH (07:36)
[2018-03-05] MEDS: Furosemide 20 MG TABLET PO SCH (08:34)
[2018-03-05] MEDS: ALPRAZolam 1 MG TABLET PO SCH ×2 (08:34→20:59)
[2018-03-05] MEDS: Fenofibrate 54 MG TABLET PO SCH (08:34)
[2018-03-05] MEDS: cloNIDine HCl 0.1 MG TABLET PO SCH ×3 (08:34→20:59)
[2018-03-05] MEDS: metOLazone 5 MG TABLET PO SCH (08:34)
[2018-03-05] MEDS: NIFEdipine XL (24 HR) 30 MG TAB.ER.24 PO SCH (08:34)
[2018-03-05] MEDS: Ranolazine 500 MG TAB.ER.12H PO SCH ×2 (08:35→20:59)
[2018-03-05] MEDS: Aspirin Enteric Coated 81 MG Tablet PO SCH (08:35)
[2018-03-05] MEDS: hydrALAZINE 25 MG TABLET PO SCH ×3 (08:35→21:04)
--- NOTE | 2018-03-05 09:49 | Internal Med Progress Note ---
Addendum entered and electronically signed by Cate Quintana MD 03/05/18 15:35: She does have chronic diastolic CHF.. Currently not in exacerbation Original Note: <Tray Padilla P - Last Filed: 03/05/18 12:09> Hospitalist Progress Note - Encounter Date of Encounter: 03/05/18 Time of Encounter: 08:45 - Subjective Interval History: She is 67 year old female with past medical history of arthritis, CHF, COPD, smoker,diabetes, GERD, hyperlipidemia,anxiety, bipolar, hypertension, angioplasty/stent, RA, ESRD presented to ED for pain and swelling of right hip for last 3 days and progressively getting worse recently. She is a patient of ESRD on dialyzes 3 times in a week. X-ray right Hip done in ED showed osteoarthritis of right hip and CT scan of pelvis and hip also showed d egenerative arthritis of the joint. Interventional radiologist did arthrocentesis from right hip and sent for synovial fluid analysis and culture , Synovial fluid was normal. Blood culture Enterococcus fecalis . Today during my visit the patient was lying on the bed, she was oriented to time place and person, not in acute distress, answering question appropriately. Her right hip pain has been significantly less , 4/10, she does not have any chest pain, shortness of breath and swelling in her right leg has been significantly lessened. She did dialyzes yesterday and HD catheter has been changed. Total white cell count has been dropped down from 22.7-16.8 and neutrophil 13.6, serum sodium 130 and potassium 3.8. Slight improvement in renal function (BUN 40 and creatinine 4.82) She did not make any urine. Nephrology, infectious disease on the board. Recent CT of abdomen and pelvis did not show any acute intra- abdominal pathology. She is on IV antibiotic vancomycin. Symptomatically improving since admission. - Exam Vitals: Temp Pulse Resp BP Pulse Ox 98.3 F 78 18 139/66 96 03/05/18 07:18 03/05/18 07:18 03/05/18 07:40 03/05/18 07:18 03/05/18 07:40 Exam: Gen: Alert, awake , Oriented to time,place and person Chest: Diminished BS b/l, No crackles, No rales, No wheezing Heart: S1S2+ RRR No Murmurs Abd: Soft, NT, BS + No organomegaly Ext: Moderate swelling over right leg, restricted range of motion of right hip mostly internal rotation, tenderness over the gluteus muscle on the back of right hip. Left hip looks grossly normal except mild pitting edema. Neuro: No focal neuro deficits Psych: Normal mood Skin: No rash( - Assessment and Plan (1) SIRS (systemic inflammatory response syndrome) Current Visit: Yes Status: Acute Assessment and Plan: The patient has one episode of elevated temperature recorded 100.5 F before , today the temperature is 98F The patient has UTI, urine culture showed mixed organisms, white cell count has dropped from 22.7-16.8 Vitals pulse 78, blood pressure 139/66 ,respiration rate 18/m Peripheral venipuncture blood c/s showed gram-positive cocci, enterococcus , hemodialysis catheter has been changed / suspected possible source of infection on IV antibiotic :vancomycin. Improving progressively. (2) Acute right hip pain Current Visit: Yes Status: Acute Assessment and Plan: The patient has acute severe right hip pain and swelling for last 3 days , but no fever. Possibly it might be due osteoarthritis X-ray right hip and CT pelvis: Showed degenerative changes in right hip. . (3) Osteoarthritis of right hip Current Visit: Yes Status: Acute Assessment and Plan: he patient has right hip pain for last 3 days without fever, it does not look like septic arthritis. X-ray right hip and CT pelvis showed degenerative osteoarthritis We have placed on pain medication, the pain has been improved since admission (4) UTI (urinary tract infection) Current Visit: Yes Status: Acute Assessment and Plan: The patient urine analysis showed UTI, urine culture : mixed organism , she is on dialyzes 3 times in a week and she does not make urine. She is on IV antibiotic. (5) Hyponatremia Current Visit: Yes Status: Acute Assessment and Plan: The patient has low serum sodium level; recent one is 130, we will monitor closely. (6) ESRD (end stage renal disease) Current Visit: Yes Status: Acute Assessment and Plan: She is doing dialyzes on Thursday, , Thursday She will do hemodialysis yesterday. HD catheter changes as suspected source of infection. Nephro team already consulted the patient, appreciate the recommendation, (7) Bursitis of hip, right Current Visit: Yes Status: Acute Assessment and Plan: The patient has moderately severe pain on gluteal muscle region, it might be due to gluteus bursitis (8) Diabetes mellitus Current Visit: Yes Status: Acute Assessment and Plan: Patient is chronic patient of diabetes with home insulin 70 units 3 times a day Her recent blood sugar level is 105 139 She is on insulin start sliding scale. (9) CCF (congestive cardiac failure) Current Visit: Yes Status: Acute Assessment and Plan: The patient has history of congestive heart failure Latest Echo :LVEF 60%; diastolic function. She is on metolazone, Lasix (10) DVT (deep venous thrombosis) Current Visit: Yes Status: Acute Assessment and Plan: The patient is on heparin SQ for DVT prophylaxis (11) COPD (chronic obstructive pulmonary disease) Current Visit: Yes Status: Acute Assessment and Plan: The patient is chronic patient of COPD and chronic smoker She is on nebulizer and Symbicort inhaler. (12) Hypertension Current Visit: Yes Status: Acute Assessment and Plan: She is patient of chronic essential hypertension we have resumed all medication. BP 136/66 (13) CAD (coronary artery disease) Current Visit: Yes Status: Acute - Time Spent with Patient Total time spent is greater than 50% in coordination of care (as documented) at patient's floor/unit and/or counseling patient: Internal Medicine: Result - Labs CBC & Chem 7: 03/05/18 04:44 03/05/18 04:44 Labs: Short CBC 03/05/18 Range/Units 04:44 WBC 16.8 H (4.3-11.1) K/mcL Hgb 11.4 L (11.5-15.4) g/dL Hct 36.2 (35.3-44.9) % Plt Count 210 (140-400) K/mcL Neutrophils # 13.6 H (1.6-8.9) K/mcL BMP 03/04/18 03/05/18 04:23 04:44 Sodium 130 L 130 L Potassium 3.8 3.8 Chloride 93 L 95 L Carbon Dioxide 24 24 BUN 40 H 40 H Creatinine 5.06 H 4.82 H Glucose 135 H 105 Calcium 9.0 9.0 - ABG Interpretation ABG results: PT/INR, D-dimer PT 12.1 Seconds (9.4-12.1) 03/02/18 07:55 - Impressions Impressions Insertion Tunneled Catheter 03/04/18 00:00 IMPRESSION: Successful fluoroscopic guided exchange of a tunneled dialysis catheter D/ / Dean Nieves MD / Dean Nieves MD Interpreting Provider: Dean Nieves MD Abdomen/Pelvis CT 03/04/18 13:49 IMPRESSION: 1. No acute intra-abdominal abnormality to account for the patient's symptoms. 2. Indeterminate lesion off the right lower pole measuring 13 mm. Dedicated MRI renal mass protocol is recommended on a nonemergent basis in 6 months. 3. Cholelithiasis. 4. Severe atherosclerosis. 5. Diverticulosis. 6. Excreted contrast is identified in the collecting system and bladder, presumably related to prior procedure . D/ / 03/04/2018 16:14:03 Karen Clay MD / astrid Interpreting Provider: Karen Clay MD Lumbar Spine CT 03/04/18 13:49 IMPRESSION: 1. No acute intra-abdominal abnormality to account for the patient's symptoms. 2. Indeterminate lesion off the right lower pole measuring 13 mm. Dedicated MRI renal mass protocol is recommended on a nonemergent basis in 6 months. 3. Cholelithiasis. 4. Severe atherosclerosis. 5. Diverticulosis. 6. Excreted contrast is identified in the collecting system and bladder, presumably related to prior procedure . D/ / 03/04/2018 16:14:03 Karen Clay MD / astrid Interpreting Provider: Karen Clay MD Consult Discharge Plan - Plan Referrals: Jay Valenzuela DO [Primary Care Provider] - (office will call patient for an appointment when there is sooner available) <Cate Quintana - Last Filed: 03/05/18 15:28> Hospitalist Progress Note - Encounter Date of Encounter: 03/05/18 - Exam Vitals: Temp Pulse Resp BP Pulse Ox 97.6 F 79 16 106/65 97 03/05/18 12:15 03/05/18 12:15 03/05/18 12:15 03/05/18 12:15 03/05/18 12:15 - Time Spent with Patient Total time spent is greater than 50% in coordination of care (as documented) at patient's floor/unit and/or counseling patient: Internal Medicine: Result - Labs CBC & Chem 7: 03/05/18 04:44 03/05/18 04:44 Labs: Short CBC 03/05/18 Range/Units 04:44 WBC 16.8 H (4.3-11.1) K/mcL Hgb 11.4 L (11.5-15.4) g/dL Hct 36.2 (35.3-44.9) % Plt Count 210 (140-400) K/mcL Neutrophils # 13.6 H (1.6-8.9) K/mcL BMP 03/05/18 04:44 Sodium 130 L Potassium 3.8 Chloride 95 L Carbon Dioxide 24 BUN 40 H Creatinine 4.82 H Glucose 105 Calcium 9.0 - ABG Interpretation ABG results: PT/INR, D-dimer PT 12.1 Seconds (9.4-12.1) 03/02/18 07:55 - Impressions Impressions Abdomen/Pelvis CT 03/04/18 13:49 IMPRESSION: 1. No acute intra-abdominal abnormality to account for the patient's symptoms. 2. Indeterminate lesion off the right lower pole measuring 13 mm. Dedicated MRI renal mass protocol is recommended on a nonemergent basis in 6 months. 3. Cholelithiasis. 4. Severe atherosclerosis. 5. Diverticulosis. 6. Excreted contrast is identified in the collecting system and bladder, presumably related to prior procedure. D/ / 03/04/2018 16:14:03 Karen Clay MD / astrid Interpreting Provider: Karen Clay MD Lumbar Spine CT 03/04/18 13:49 IMPRESSION: 1. No acute intra-abdominal abnormality to account for the patient's symptoms. 2. Indeterminate lesion off the right lower pole measuring 13 mm. Dedicated MRI renal mass protocol is recommended on a nonemergent basis in 6 months. 3. Cholelithiasis. 4. Severe atherosclerosis. 5. Diverticulosis. 6. Excreted contrast is identified in the collecting system and bladder, presumably related to prior procedure. D/ / 03/04/2018 16:14:03 Karen Clay MD / astrid Interpreting Provider: Karen Clay MD - Attending Attestation I examined this patient and my medical decision-making was reviewed with the Resident Physician Dr. Ashley. I agree with the documented findings, disposition and treatment plan as described except to the extent set forth below. Ms. Garcia is a 67 y/o F with known ESRD on HD T/T/S , CAD s/p PCI, HTN, HLD and DM2 pt presented to ER with worsening Rt hip pain from last 3 days. She is unable to bare any weight. Also she noticed some swelling in Rt hip. She denied any CP / SOB. Pt started having fever spikes - T max: 100.7 Gen: A, A, O x3 Chest: Diminished BS b/l No crackles No rales Heart: S1S2+ RRR Ext; Moderate tenderness in Rt hip, swelling + mild erythema noticed in Rt thigh region too. a/p 1. SIRS - meets SIRS criteria with elevated WBC and source of inf as Rt hip septic joint 2. Acute bacteremia with enterococci 3. Acute Rt hip pain due to DJD 4. ?? Septic Rt hip - less likely - ruled out - Sino fluid culture no growth 5. Perm HD Cath on Left chest region 6. Acute UTI - abnormal UA mostly contaminated blood cx 4/4 Enterococci faecalis most likely due to HD catheter related her repeat blood cultures so far no growth if her repeat blood culture comes back positive her HD cath need to be replaced synovial fluid cx - no growth cont empirical abx Vanc appreciate ID recommendations TTE - P Reviewed her CT spine - no signs of abscess / Sai myelitis ESR and CRP -both are still elevated 7. ESRD on HD Nephro consulted for HD <Tray Padilla P - Last Filed: 03/05/18 12:09> (3) Osteoarthritis of right hip Qualifiers: Osteoarthritis type: unspecified Qualified Code(s): M16.11 - Unilateral primary osteoarthritis, right hip (4) UTI (urinary tract infection) Qualifiers: Qualified Code(s): N39.0 - Urinary tract infection, site not specified; R31.9 - Hematuria, unspecified (7) Bursitis of hip, right Qualifiers: Hip bursitis location: other hip bursa Qualified Code(s): M70.71 - Other bursitis of hip, right hip (8) Diabetes mellitus Qualifiers: Chronic kidney disease stage: on chronic dialysis (9) CCF (congestive cardiac failure) Qualifiers: Heart failure type: diastolic Heart failure chronicity: unspecified Qualified Code(s): I50.30 - Unspecified diastolic (congestive) heart failure (10) DVT (deep venous thrombosis) Qualifiers: Qualified Code(s): I82.409 - Acute embolism and thrombosis of unspecified deep veins of unspecified lower extremity (11) COPD (chronic obstructive pulmonary disease) Qualifiers: COPD type: unspecified COPD Qualified Code(s): J44.9 - Chronic obstructive pulmonary disease, unspecified (12) Hypertension Qualifiers: Hypertension type: essential hypertension Qualified Code(s): I10 - Essential (primary) hypertension (13) CAD (coronary artery disease) Qualifiers: Qualified Code(s): I25.10 - Atherosclerotic heart disease of [place] coronary artery without angina pectoris
--- NOTE | 2018-03-05 11:53 | Infectious Disease Progress No ---
Date of Encounter: 03/05/18 Time of Encounter: 09:30 - Assessment and Plan (1) Sepsis Current Visit: No Status: Acute Patient had 2 sepsis criteria on admission. Likely secondary to bacteremia. White blood cell count improved. She has been afebrile overnight. Blood cultures drawn 03/02/18 are +2 out of 2 sets for enterococcus faecalis, AmpS. Repeat blood cultures drawn 03/04/18 (one from peripheral and one cetnrally) are pending x 2 sets. Recommendations: Await 03/02/18 cultures and susceptibilities to finalize. Await repeat blood cultures. Await right hip synovial fluid culture to finalize. Get TTE. Continue Vancomycin IV for ease of dosing as an outpatient since it can be given at HD. Pharmacy to dose. Goal trough ~15. Duration of treatment depends on the clinical picture. Monitor renal function and for drug toxicity and dose-adjust antibiotics. Qualifiers: Qualified Code(s): A41.9 - Sepsis, unspecified organism (2) Bacteremia Current Visit: No Status: Acute Causative organism: Enterococcus faecalis, AmpS. Source: Unclear, HD catheter (clinically does not appear infected) vs. intra- abdominal (CT negative) vs. right hip (synovial fluid culture no growth) vs. other. Blood cultures drawn 03/02/18 are positive 2/2 sets (peripheral) for Enterococcus faecalis. Repeat blood cultures drawn 03/04/18 are pending x 2 sets. No endocarditis stigmata noted on exam. The patient has one major and one minor Modified Barron's criteria. Currently on Vanc. (3) Osteoarthritis of right hip Current Visit: Yes Status: Acute CT of the right hip showed no acute fracture or dislocation with minimal degenerative changes at the right hip joint space. Status post CT-guided arthrocentesis 03/02/18 by IR. 1ml clear fluid aspirated. Unable to do cell count do to volume of the fluid. Gram stain negative, culture is no growth. Low index of suspicion of septic arthritis (either seeding or source of bacteremia). Pain management per the primary team. Qualifiers: Osteoarthritis type: unspecified Qualified Code(s): M16.11 - Unilateral primary osteoarthritis, right hip (4) Hyponatremia Current Visit: Yes Status: Acute Nephrology consulted and following. (5) Constipation Current Visit: No Status: Acute Reports no BM x 4-5 days. Bowel regimen per the primary team. Qualifiers: Constipation type: unspecified constipation type Qualified Code(s): K59.00 - Constipation, unspecified (6) CAD (coronary artery disease) Current Visit: No Status: Chronic Qualifiers: Coronary Disease-Associated Artery/Lesion type: [place] artery [place] vs. transplanted heart: [place] heart Associated angina: without angina Qualified Code(s): I25.10 - Atherosclerotic heart disease of [place] coronary artery without angina pectoris (7) Obesity Current Visit: No Status: Chronic Qualifiers: Obesity type: unspecified obesity type Obesity classification: adult class 3 (BMI >= 40) Serious obesity comorbidity presence: with serious comorbidity Body mass index: BMI 45.0-49.9 Qualified Code(s): E66.01 - Morbid (severe) obesity due to excess calories; Z68.42 - Body mass index (BMI) 45.0-49.9, adult (8) Diabetes mellitus Current Visit: No Status: Chronic Qualifiers: Diabetes mellitus type: type 2 Diabetes mellitus meterman insulin use: wi th meterman use Diabetes mellitus complication status: with kidney compl ications Diabetes mellitus complication detail: with chronic kidney disease Chronic kidney disease stage: stage 4 (severe) Qualified Code(s): E11.22 - Type 2 diabetes mellitus with diabetic chronic kidney disease; N18.4 - Chronic kidney disease, stage 4 (severe); Z79.4 - alf (current) use of insulin (9) COPD (chronic obstructive pulmonary disease) Current Visit: Yes Status: Acute Qualifiers: COPD type: unspecified COPD Qualified Code(s): J44.9 - Chronic obstructive pulmonary disease, unspecified (10) CCF (congestive cardiac failure) Current Visit: Yes Status: Acute Qualifiers: Heart failure type: diastolic Heart failure chronicity: unspecified Qualified Code(s): I50.30 - Unspecified diastolic (congestive) heart failure (11) ESRD (end stage renal disease) on dialysis Current Visit: Yes Status: Acute Nephrology consulted and following. (12) Back pain Current Visit: Yes Status: Acute Etiology unclear. CT of the L-spine, abdomen, and pelvis negative for acute abnormality. Pain management per the primary team. Qualifiers: Back pain location: low back pain Chronicity: acute Back pain laterality: midline Sciatica presence: unspecified whether sciatica present Qualified Code(s): M54.5 - Low back pain - Subjective Interval history: Patient seen and examined. No acute events noted overnight. States she had a rough night with severe right hip and lower back pain. Denies fevers, chills, or rigors. Denies chest pain, shortness of breath, or cough. Denies nausea, vomiting, diarrhea. States she has not had a BM in a few days. Denies urinary complaints or abdominal pain. States her appetite is poor. Denies oral thrush or new skin lesions. Status post HD line exchange 03/04/18. Infect Dis PN-Objective Data - Labs CBC & Chem 7: 03/05/18 04:44 03/05/18 04:44 Labs: Laboratory Results - last 24 hr 03/04/18 03/04/18 03/04/18 04:23 04:23 07:40 WBC RBC Hgb Hct MCV MCH MCHC RDW Plt Count MPV Immature Gran % Seg Neutrophils % Lymphocytes % Monocytes % Eosinophils % Basophils % Neutrophils # Lymphocytes # Monocytes # Eosinophils # Basophils # ESR 101 H Sodium 130 L Potassium 3.8 Chloride 93 L Carbon Dioxide 24 BUN 40 H Creatinine 5.06 H Est GFR ( Amer) 10 L Est GFR (Non-Af Amer) 9 L BUN/Creatinine Ratio 8 Glucose 135 H POC Glucose 139 H Calculated Osmolality 282 Calcium 9.0 C-Reactive Protein 265 H 03/04/18 03/04/18 03/04/18 11:04 14:45 16:38 WBC RBC Hgb Hct MCV MCH MCHC RDW Plt Count MPV Immature Gran % Seg Neutrophils % Lymphocytes % Monocytes % Eosinophils % Basophils % Neutrophils # Lymphocytes # Monocytes # Eosinophils # Basophils # ESR Sodium Potassium Chloride Carbon Dioxide BUN Creatinine Est GFR ( Amer) Est GFR (Non-Af Amer) BUN/Creatinine Ratio Glucose POC Glucose 176 H 147 H 226 H Calculated Osmolality Calcium C-Reactive Protein 03/04/18 03/05/18 03/05/18 21:17 04:44 04:44 WBC 16.8 H RBC 4.13 Hgb 11.4 L Hct 36.2 MCV 87.7 MCH 27.6 L MCHC 31.5 L RDW 16.0 H Plt Count 210 MPV 9.1 L Immature Gran % 0.5 Seg Neutrophils % 80.9 Lymphocytes % 5.8 Monocytes % 7.6 Eosinophils % 4.7 Basophils % 0.5 Neutrophils # 13.6 H Lymphocytes # 1.0 Monocytes # 1.3 Eosinophils # 0.8 H Basophils # 0.1 ESR Sodium 130 L Potassium 3.8 Chloride 95 L Carbon Dioxide 24 BUN 40 H Creatinine 4.82 H Est GFR ( Amer) 11 L Est GFR (Non-Af Amer) 9 L BUN/Creatinine Ratio 8 Glucose 105 POC Glucose 94 Calculated Osmolality 280 Calcium 9.0 C-Reactive Protein Cultures: Cultures 03/02/18 07:50 Blood Culture - Final Peripheral Venipuncture Enterococcus faecalis 03/02/18 07:55 Blood Culture - Final Peripheral Venipuncture Enterococcus faecalis 03/04/18 10:50 Blood Culture - Preliminary Peripheral Venipuncture Culture is incubating and being continuously monitored for growth. Final report to follow. 03/04/18 10:40 Blood Culture - Preliminary Central Venous Catheter Culture is incubating and being continuously monitored for growth. Final report to follow. 03/02/18 14:47 Body Fluid Culture - Preliminary Synovial Fluid 03/02/18 07:25 Urine Culture - Final Urine,Clean Catch Serology 03/02/18 03/02/18 03/02/18 Range/Units 16:28 14:47 07:55 Urine Color (Yellow) Urine Clarity (Clear) Urine pH (5.0-8.0) pH Units Ur Specific [place] (1.010-1.025) Urine Protein (Neg-Trace) mg/dL Urine Glucose (UA) (Normal) mg/dL Urine Ketones (Negative) mg/dL Urine Blood (Negative) Urine Nitrite (Negative) Urine Bilirubin (Negative) Urine Urobilinogen (Normal) mg/dL Ur Leukocyte Esterase (Negative) Urine Microscopic RBC (0-3) per hpf Urine Microscopic WBC (0-3) per hpf Ur Squamous Epith Cells (None-Few) per lpf Ur Transition Epith Cell (None-Few) per hpf Ur Renal Epithelial Cell (None-Few) per hpf Urine Bacteria (None-Few) per hpf Hyaline Casts (None-Few) per lpf Urine Yeast (None Seen) per hpf Ur Culture Indicated? (NO) Synovial Source right hip Synovial Color Colorless (Straw) Synovial Appearance Clear (Clear-Hazy) Synovial Volume 1.0 mL Synovial RBC TNP Synovial Tot Nuc Cell TNP Synovial Band Neuts TNP Synovial Basophils TNP Synovial Eosinophils TNP Synovial Seg Neuts % TNP Synovial Lymphocytes % TNP Synovial Monocytes % TNP Synovial Other Cells % TNP A. baumannii (PCR) Not Detected (Not Detect) Kerry albicans (PCR) Not Detected (Not Detect) C. glabrata (PCR) Not Detected (Not Detect) C. krusei (PCR) Not Detected (Not Detect) C. parapsilosis (PCR) Not Detected (Not Detect) C. tropicalis (PCR) Not Detected (Not Detect) Enterobacteriac sp PCR Not Detected (Not Detect) E. cloacae complex PCR Not Detected (Not Detect) Enterococcus sp PCR DETECTED A (Not Detect) E. coli (PCR) Not Detected (Not Detect) H. influenzae (PCR) Not Detected (Not Detect) Hep Bs Antigen Nonreactive (Nonreactive) Hep Bs Antibody < 3.10 L (10.00 - ) mIU/mL Klebsiella oxytoca PCR Not Detected (Not Detect) Klebsiella pneumoniae Not Detected (Not Detect) List. monocytogenes PCR Not Detected (Not Detect) N. meningitidis (PCR) Not Detected (Not Detect) Proteus species (PCR) Not Detected (Not Detect) Serratia marcescens PCR Not Detected (Not Detect) Staphylococcus sp PCR Not Detected (Not Detect) Staph aureus (PCR) Not Detected (Not Detect) mecA-Methicil Res Gene N/A (Not Detect) Streptococcus sp PCR Not Detected (Not Detect) Group A Strep DNA Not Detected (Not Detect) Group B Strep (PCR) Not Detected (Not Detect) Strep pneumoniae (PCR) Not Detected (Not Detect) P. aeruginosa (PCR) Not Detected (Not Detect) Sil/B-Vanco Res Genes Not Detected (Not Detect) KPC (blaKPC) Detect PCR N/A (Not Detect) 03/02/18 Range/Units 07:25 Urine Color Yellow (Yellow) Urine Clarity Hazy A (Clear) Urine pH 6.0 (5.0-8.0) pH Units Ur Specific [place] 1.009 L (1.010-1.025) Urine Protein >=300 H (Neg-Trace) mg/dL Urine Glucose (UA) 100 H (Normal) mg/dL Urine Ketones Negative (Negative) mg/dL Urine Blood Negative (Negative) Urine Nitrite Negative (Negative) Urine Bilirubin Negative (Negative) Urine Urobilinogen Normal (Normal) mg/dL Ur Leukocyte Esterase Small H (Negative) Urine Microscopic RBC 0-3 (0-3) per hpf Urine Microscopic WBC 30-50 H (0-3) per hpf Ur Squamous Epith Cells Few (None-Few) per lpf Ur Transition Epith Cell Few (None-Few) per hpf Ur Renal Epithelial Cell Few (None-Few) per hpf Urine Bacteria None Seen (None-Few) per hpf Hyaline Casts None Seen (None-Few) per lpf Urine Yeast Few H (None Seen) per hpf Ur Culture Indicated? YES A (NO) Synovial Source Synovial Color (Straw) Synovial Appearance (Clear-Hazy) Synovial Volume mL Synovial RBC Synovial Tot Nuc Cell Synovial Band Neuts Synovial Basophils Synovial Eosinophils Synovial Seg Neuts % Synovial Lymphocytes % Synovial Monocytes % Synovial Other Cells % A. baumannii (PCR) (Not Detect) Kerry albicans (PCR) (Not Detect) C. glabrata (PCR) (Not Detect) C. krusei (PCR) (Not Detect) C. parapsilosis (PCR) (Not Detect) C. tropicalis (PCR) (Not Detect) Enterobacteriac sp PCR (Not Detect) E. cloacae complex PCR (Not Detect) Enterococcus sp PCR (Not Detect) E. coli (PCR) (Not Detect) H. influenzae (PCR) (Not Detect) Hep Bs Antigen (Nonreactive) Hep Bs Antibody (10.00 - ) mIU/mL Klebsiella oxytoca PCR (Not Detect) Klebsiella pneumoniae (Not Detect) List. monocytogenes PCR (Not Detect) N. meningitidis (PCR) (Not Detect) Proteus species (PCR) (Not Detect) Serratia marcescens PCR (Not Detect) Staphylococcus sp PCR (Not Detect) Staph aureus (PCR) (Not Detect) mecA-Methicil Res Gene (Not Detect) Streptococcus sp PCR (Not Detect) Group A Strep DNA (Not Detect) Group B Strep (PCR) (Not Detect) Strep pneumoniae (PCR) (Not Detect) P. aeruginosa (PCR) (Not Detect) Sil/B-Vanco Res Genes (Not Detect) KPC (blaKPC) Detect PCR (Not Detect) - Impressions Impressions Insertion Tunneled Catheter 03/04/18 00:00 IMPRESSION: Successful fluoroscopic guided exchange of a tunneled dialysis catheter D/ / Dean Nieves MD / Dean Nieves MD Interpreting Provider: Dean Nieves MD Abdomen/Pelvis CT 03/04/18 13:49 IMPRESSION: 1. No acute intra-abdominal abnormality to account for the patient's symptoms. 2. Indeterminate lesion off the right lower pole measuring 13 mm. Dedicated MRI renal mass protocol is recommended on a nonemergent basis in 6 months. 3. Cholelithiasis. 4. Severe atherosclerosis. 5. Diverticulosis. 6. Excreted contrast is identified in the collecting system and bladder, presumably related to prior procedure. D/ / 03/04/2018 16:14:03 Karen Clay MD / astrid Interpreting Provider: Karen Clay MD Lumbar Spine CT 03/04/18 13:49 IMPRESSION: 1. No acute intra-abdominal abnormality to account for the patient's symptoms. 2. Indeterminate lesion off the right lower pole measuring 13 mm. Dedicated MRI renal mass protocol is recommended on a nonemergent basis in 6 months. 3. Cholelithiasis. 4. Severe atherosclerosis. 5. Diverticulosis. 6. Excreted contrast is identified in the collecting system and bladder, presumably related to prior procedure. D/ / 03/04/2018 16:14:03 Karen Clay MD / astrid Interpreting Provider: Karen Clay MD Exam - Constitutional Vitals: Temp Pulse Resp BP Pulse Ox 98.3 F 78 18 139/66 96 03/05/18 07:18 03/05/18 07:18 03/05/18 07:40 03/05/18 07:18 03/05/18 07:40 General appearance: cooperative, no acute distress, obese - Head Head exam: Present: atraumatic, normal inspection, normocephalic - Eye Eye exam: Present: EOMI, normal appearance, PERRL Pupils: Present: normal accommodation Additional comments: No subconjunctival hemorrhage noted. - ENT ENT exam: Present: mucous membranes moist - Neck Neck exam: Present: normal inspection - Respiratory Respiratory exam: Present: CTAB. Absent: rales, respiratory distress, rhonchi, wheezes - Cardiovascular Cardiovascular exam: Present: RRR, +S1, +S2 - GI/Abdominal GI/Abdominal exam: Present: distended (obese), normal bowel sounds, soft, tender ness (generalized) - Extremities Exam Extremities exam: Present: pedal edema (1+ RLE). Absent: normal inspection (Chronic venous stasis dermatitis noted to the RLE), tenderness - Neurological Exam Neurological exam: Present: alert, oriented X3, no focal deficits - Psychiatric Psychiatric exam: Present: normal affect, normal mood - Skin Skin exam: Present: dry, intact, normal color, warm Additional comments: No endocarditis stigmata noted. - Additional findings Additional findings: Perma-cath noted to the left upper chest with transparent dressing C/D/I. No erythema, warmth, tenderness, or drainage noted. Consult Discharge Plan - Plan Referrals: Jay Valenzuela DO [Primary Care Provider] - (office will call patient for an appointment when there is sooner available) - Attending Attestation I examined this patient and my medical decision-making was reviewed with the Resident Physician. I agree with the documented findings, disposition and treatment plan as described except to the extent set forth below.
--- NOTE | 2018-03-05 12:45 | Nephrology Progress Note ---
Date of Encounter: 03/05/18 Time of Encounter: 12:44 - Assessment and Plan (1) ESRD (end stage renal disease) on dialysis Current Visit: Yes Status: Acute Current regimen is TTS at [facility] Pt's HD line is not functioning well. Blood cultures ordered x 2 sets 03/04/18 If cultures negative, an over the wire exchange could be done. If blood cultures are positive, recommend line holiday and then replace. Renal diet Renal vitamins Strict I/O Avoid nephrotoxins and renal dose all medications. (2) Acute right hip pain Current Visit: Yes Status: Acute (3) Osteoarthritis of right hip Current Visit: Yes Status: Acute Qualifiers: Osteoarthritis type: unspecified Qualified Code(s): M16.11 - Unilateral primary osteoarthritis, right hip (4) UTI (urinary tract infection) Current Visit: Yes Status: Acute Qualifiers: Qualified Code(s): N39.0 - Urinary tract infection, site not specified; R31.9 - Hematuria, unspecified (5) Hyponatremia Current Visit: Yes Status: Acute Subjective Principal diagnosis: right hip pain Interval history: Patient seen. No new complaint. ROS stable. She complains of fatigue. Objective - Vital Signs Vital signs: Vital Signs Temp Pulse Resp BP Pulse Ox 03/05/18 07:40 18 96 03/05/18 07:18 98.3 F 78 18 139/66 96 03/05/18 05:32 99.8 F H 69 17 130/66 98 03/05/18 01:13 93 03/05/18 00:45 99.8 F H 69 17 118/64 96 03/04/18 21:13 99.3 F 71 16 127/66 97 03/04/18 20:27 16 98 03/04/18 15:05 98.0 F 71 18 108/70 98 Intake and Output 03/04/18 03/05/18 03/05/18 23:59 07:59 15:59 Other: Meal Breakfast Percent of Meal Consumed 75% Blood Glucose* 94 108 177 - General Appearance General appearance: Present: well-developed, well-nourished EENT: Present: ATNC Neck: Present: supple Respiratory: Present: course breath sounds Cardiology: Present: edema Gastrointestinal: Present: no tenderness - Lab 03/05/18 04:44 03/05/18 04:44 Most recent lab results Calcium 9.0 mg/dL (8.6-10.3) 03/05/18 04:44 Consult Discharge Plan - Plan Referrals: Jay Valenzuela DO [Primary Care Provider] - (office will call patient for an appointment when there is sooner available)
[2018-03-05] MEDS: Nystatin POWDER 30 GM BOTTLE TP SCH ×2 (17:35→20:59)
[2018-03-05 19:46] LABS: blaKPC Carbapenem-Resist Gene Not Detected (Not Detect); vanA/B Vancomycin-Resist Genes Not Detected (Not Detect)
[2018-03-05 19:47] LABS: Acinetobacter baumannii by PCR Not Detected (Not Detect); Candida albicans by PCR Not Detected (Not Detect); Candida glabrata by PCR Not Detected (Not Detect); Candida krusei by PCR Not Detected (Not Detect); Candida parapsilosis by PCR Not Detected (Not Detect); Candida tropicalis by PCR Not Detected (Not Detect); Enterobacter cloacae Cmplx PCR Not Detected (Not Detect); Enterobacteriaceae by PCR Not Detected (Not Detect); Enterococcus by PCR DETECTED (Not Detect); Escherichia coli by PCR Not Detected (Not Detect); Klebsiella oxytoca by PCR Not Detected (Not Detect); Klebsiella pneumoniae by PCR Not Detected (Not Detect); Proteus by PCR Not Detected (Not Detect); Pseudomonas aeruginosa by PCR Not Detected (Not Detect); Serratia marcescens by PCR Not Detected (Not Detect); Staphylococcus aureus by PCR Not Detected (Not Detect); Staphylococcus by PCR Not Detected (Not Detect); Streptococcus agalactiae(B)PCR Not Detected (Not Detect); Streptococcus by PCR Not Detected (Not Detect); Streptococcus pneumoniae PCR Not Detected (Not Detect); Streptococcus pyogenes (A) PCR Not Detected (Not Detect)
[2018-03-05] MEDS: traZODone 50 MG TABLET PO SCH (20:59)
[2018-03-05] MEDS: Famotidine 20 MG TABLET PO SCH (20:59)
[2018-03-05] MEDS: risperiDONE 1 MG TABLET PO SCH (20:59)
[2018-03-06] MEDS: Acetaminophen 325 MG TABLET PO PRN (00:05)
[2018-03-06] MEDS: *HR* Heparin 5,000 UNIT/ML VIAL SQ SCH ×2 (06:11→17:39)
[2018-03-06 06:52] LABS: Hematocrit 33.4 % (35.3-44.9); Hemoglobin 10.7 g/dL (11.5-15.4); Mean Corpuscular Hemoglobin 27.9 pg (28.0-33.3); Platelet Count 221 K/mcL (140-400); Red Blood Count 3.84 M/mcL (3.82-4.97); Red Cell Distribution Width 15.8 % (11.5-14.5)
[2018-03-06 07:12] LABS: Calcium 9.2 mg/dL (8.6-10.3)
--- NOTE | 2018-03-06 08:18 | Nephrology Progress Note ---
Date of Encounter: 03/06/18 Time of Encounter: 08:16 - Assessment and Plan (1) ESRD (end stage renal disease) on dialysis Current Visit: Yes Status: Acute Current regimen is TTS at [facility] Pt's HD line was not functioning well. Blood cultures ordered x 2 sets 03/04/18 HD line replaced 03/05/2018 Renal diet Renal vitamins Strict I/O Avoid nephrotoxins and renal dose all medications. (2) Acute right hip pain Current Visit: Yes Status: Acute Per primary. (3) Osteoarthritis of right hip Current Visit: Yes Status: Acute X-ray right hip and CT pelvis reflects degenerative osteoarthritis, rule out septic arthritis. Per primary. Qualifiers: Osteoarthritis type: unspecified Qualified Code(s): M16.11 - Unilateral primary osteoarthritis, right hip (4) UTI (urinary tract infection) Current Visit: Yes Status: Acute Qualifiers: Qualified Code(s): N39.0 - Urinary tract infection, site not specified; R31.9 - Hematuria, unspecified (5) Hyponatremia Current Visit: Yes Status: Acute Subjective Principal diagnosis: right hip pain Interval history: Patient seen. She is asleep. No new report. Objective - Vital Signs Vital signs: Vital Signs Temp Pulse Resp BP Pulse Ox 03/06/18 07:30 99.7 F H 73 20 135/57 96 03/06/18 05:20 99.2 F 71 16 119/56 95 03/05/18 23:38 100 F H 72 17 144/61 97 03/05/18 22:24 14 96 03/05/18 20:09 98.4 F 72 16 133/50 97 03/05/18 16:36 98.7 F 72 20 126/63 98 03/05/18 12:15 97.6 F 79 16 106/65 97 Intake and Output 03/05/18 03/06/18 03/06/18 23:59 07:59 15:59 Other: Blood Glucose* 188 133 - General Appearance General appearance: Present: well-developed, well-nourished EENT: Present: ATNC Cardiology: Present: regular rate Psychiatric: Present: mood/affect appropriate - Lab 03/06/18 06:17 03/06/18 06:17 Most recent lab results Calcium 9.2 mg/dL (8.6-10.3) 03/06/18 06:17 Consult Discharge Plan - Plan Referrals: Jay Valenzuela DO [Primary Care Provider] - (office will call patient for an appointment when there is sooner available)
[2018-03-06] MEDS: Insulin LISPRO 300 UNITS/3 ML VIAL SQ SCH ×4 (08:27→20:48)
[2018-03-06] MEDS: Fenofibrate 54 MG TABLET PO SCH (08:36)
[2018-03-06] MEDS: Aspirin Enteric Coated 81 MG Tablet PO SCH (08:36)
[2018-03-06] MEDS: Ranolazine 500 MG TAB.ER.12H PO SCH ×2 (08:36→20:48)
[2018-03-06] MEDS: ALPRAZolam 1 MG TABLET PO SCH ×2 (08:37→20:48)
[2018-03-06] MEDS ORDERED: 0.9 % Sodium Chloride 1,000 ML ONE (08:40)
[2018-03-06] MEDS: metOLazone 5 MG TABLET PO SCH (08:41)
[2018-03-06] MEDS: cloNIDine HCl 0.1 MG TABLET PO SCH ×3 (08:41→20:48)
[2018-03-06] MEDS: NIFEdipine XL (24 HR) 30 MG TAB.ER.24 PO SCH (08:42)
[2018-03-06] MEDS: Furosemide 20 MG TABLET PO SCH (08:42)
[2018-03-06] MEDS: hydrALAZINE 25 MG TABLET PO SCH ×3 (08:42→20:48)
[2018-03-06] MEDS: Nystatin POWDER 30 GM BOTTLE TP SCH ×2 (08:42→20:49)
[2018-03-06] MEDS: Budesonide/Formoterol 160/4.5 1 PUFF INH IH SCH ×2 (09:13→20:35)
[2018-03-06] MEDS: Tiotropium 18 MCG inhalation IH SCH (09:13)
[2018-03-06] MEDS ORDERED: Vancomycin 500 MG in 0.9 % Sodium Chloride Mini Bag 100 ML IVPB ONE (17:00)
[2018-03-06] MEDS ORDERED: *HR* Heparin 10,000 UNIT/10 ML VIAL IV PRN (17:39)
--- NOTE | 2018-03-06 18:52 | Internal Med Progress Note ---
Hospitalist Progress Note - Encounter Date of Encounter: 03/06/18 Time of Encounter: 19:00 - Subjective Interval History: SUBJECTIVE: I met this patient after hemodialysis. She feels weak. Otherwise, she is not voicing any other problems. She seems to have normal appetite. The last time she was ambulating was 5 days ago. The patient is end-stage renal disease, on hemodialysis. She was admitted to the hospital with severe pain in the area of right hip. With suspected her to have septic arthritis. Aspiration of the joint did not show any evidence for infection. We found her to have Enterococcus faecalis bacteremia. Hemodialysis catheter has been replaced. Culture of the tip is growing MRSA. OBJECTIVE: Skin: Free of rash and discoloration. ENMT: Oral/pharyngeal mucosa is normal in appearance. Eyes: Sclera is white. There is no discharge from eyes. Respiratory: Normal breath sounds; no crackles or wheezes. CV: Heart is regular; no gallop or murmur. GI: Abdomen is soft and not tender. There is no palpable mass or visceromegaly. Neuro: There is no focal deficits. ADDITIONAL DATA: 2 of 2 blood cultures are growing Enterococcus faecalis. Culture of hemodialysis catheter tip is growing MRSA. Hemoglobin is 10.7 with a WBC at 13.8 thousand; 22.7 thousand 2 days ago. Normal electrolytes. Creatinine is 5.56. ASSESSMENT AND PLAN: Catheter related bloodstream infection/bacteremia. Infectious disease is consulted. The patient is on IV vancomycin. Her sepsis seems to be under control. One can see decreasing WBC count. Severe degenerative joint disease of right hip. However, her pain is under control with Tylenol only. 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 On diabetic diet and when necessary Humalog. On clonidine, Coreg and hydralazine. COPD. Without exacerbation. To continue Spiriva and Symbicort. Continue when necessary nebulizer treatments with albuterol. The patient will likely need to week of treatment with IV vancomycin. - Exam Vitals: Temp Pulse Resp BP Pulse Ox 99.1 F 70 20 142/56 97 03/06/18 17:17 03/06/18 17:17 03/06/18 17:17 03/06/18 17:17 03/06/18 17:17 Exam: xx - Assessment and Plan (1) CRBSI (catheter-related bloodstream infection) Current Visit: Yes Status: Acute (2) Sepsis Current Visit: Yes Status: Acute (3) Degenerative joint disease of right hip Current Visit: Yes Status: Acute (4) Type 2 diabetes mellitus Current Visit: Yes Status: Chronic (5) Hypertensive renal disease with renal failure Current Visit: Yes Status: Chronic (6) COPD (chronic obstructive pulmonary disease) Current Visit: Yes Status: Chronic - Time Spent with Patient Total time spent is greater than 50% in coordination of care (as documented) at patient's floor/unit and/or counseling patient: 25 - 35 minutes Plan of Care Discussed with: patient Internal Medicine: Result - Labs CBC & Chem 7: 03/06/18 06:17 03/06/18 06:17 Labs: Short CBC 03/06/18 Range/Units 06:17 WBC 13.8 H (4.3-11.1) K/mcL Hgb 10.7 L (11.5-15.4) g/dL Hct 33.4 L (35.3-44.9) % Plt Count 221 (140-400) K/mcL BMP 03/06/18 06:17 Sodium 129 L Potassium 4.0 Chloride 93 L Carbon Dioxide 24 BUN 55 H Creatinine 5.56 H Glucose 133 H Calcium 9.2 - ABG Interpretation ABG results: PT/INR, D-dimer PT 12.1 Seconds (9.4-12.1) 03/02/18 07:55 Consult Discharge Plan - Plan Referrals: Jay Valenzuela DO [Primary Care Provider] - (office will call patient for an appointment when there is sooner available) (2) Sepsis Qualifiers: Sepsis type: methicillin resistant Staphylococcus aureus Qualified Code(s): A41.02 - Sepsis due to Methicillin resistant Staphylococcus aureus (4) Type 2 diabetes mellitus Qualifiers: Diabetes mellitus middle or intermediate school principal insulin use: with middle or intermediate school principal use Diabetes mellitus complication status: with kidney complications Diabetes mellitus complication detail: with chronic kidney disease Chronic kidney disease stage: on chronic dialysis Qualified Code(s): E11.22 - Type 2 diabetes mellitus with diabetic chronic kidney disease; N18.6 - End stage renal disease; Z79.4 - alf (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
[2018-03-06] MEDS: Famotidine 20 MG TABLET PO SCH (20:48)
[2018-03-06] MEDS: traZODone 50 MG TABLET PO SCH (20:48)
[2018-03-06] MEDS: risperiDONE 1 MG TABLET PO SCH (20:48)
[2018-03-07] MEDS: Acetaminophen 325 MG TABLET PO PRN ×2 (04:52→21:07)
[2018-03-07] MEDS: *HR* Heparin 5,000 UNIT/ML VIAL SQ SCH ×2 (04:57→17:59)
[2018-03-07 06:24] LABS: Hematocrit 33.5 % (35.3-44.9); Hemoglobin 10.5 g/dL (11.5-15.4); Mean Corpuscular HGB Conc 31.3 g/dL (31.6-35.5); Mean Corpuscular Hemoglobin 27.3 pg (28.0-33.3); Mean Corpuscular Volume 87.2 fL (83.0-100.0); Mean Platelet Volume 8.9 fL (9.4-12.4); Platelet Count 218 K/mcL (140-400); Red Blood Count 3.84 M/mcL (3.82-4.97); Red Cell Distribution Width 15.6 % (11.5-14.5)
[2018-03-07 06:42] LABS: Calcium 9.3 mg/dL (8.6-10.3); Potassium 4.1 mEq/L (3.5-5.1)
[2018-03-07] MEDS: Tiotropium 18 MCG inhalation IH SCH (07:50)
[2018-03-07] MEDS: Budesonide/Formoterol 160/4.5 1 PUFF INH IH SCH ×2 (07:50→20:16)
[2018-03-07] MEDS: Insulin LISPRO 300 UNITS/3 ML VIAL SQ SCH ×4 (08:20→21:07)
[2018-03-07] MEDS: cloNIDine HCl 0.1 MG TABLET PO SCH ×3 (08:31→21:06)
[2018-03-07] MEDS: hydrALAZINE 25 MG TABLET PO SCH ×3 (08:31→21:07)
[2018-03-07] MEDS: ALPRAZolam 1 MG TABLET PO SCH ×2 (08:31→21:07)
[2018-03-07] MEDS: Furosemide 20 MG TABLET PO SCH (08:31)
[2018-03-07] MEDS: NIFEdipine XL (24 HR) 30 MG TAB.ER.24 PO SCH (08:31)
[2018-03-07] MEDS: Fenofibrate 54 MG TABLET PO SCH (08:32)
[2018-03-07] MEDS: Ranolazine 500 MG TAB.ER.12H PO SCH ×2 (08:32→21:06)
[2018-03-07] MEDS: metOLazone 5 MG TABLET PO SCH (08:32)
[2018-03-07] MEDS: Nystatin POWDER 30 GM BOTTLE TP SCH ×2 (08:32→21:07)
[2018-03-07] MEDS: Aspirin Enteric Coated 81 MG Tablet PO SCH (08:32)
--- NOTE | 2018-03-07 12:54 | Nephrology Progress Note ---
Date of Encounter: 03/07/18 Time of Encounter: 12:52 - Assessment and Plan (1) ESRD (end stage renal disease) on dialysis Current Visit: Yes Status: Acute Current regimen is TTS at [facility] Pt's HD line was not functioning well. Blood cultures ordered x 2 sets 03/04/18 HD line replaced 03/05/2018 Renal diet Renal vitamins Strict I/O Avoid nephrotoxins and renal dose all medications. Resume outpatient HD schedule. (2) Acute right hip pain Current Visit: Yes Status: Acute Per primary. (3) Osteoarthritis of right hip Current Visit: Yes Status: Acute X-ray right hip and CT pelvis reflects degenerative osteoarthritis, rule out septic arthritis. Per primary. Qualifiers: Osteoarthritis type: unspecified Qualified Code(s): M16.11 - Unilateral primary osteoarthritis, right hip (4) UTI (urinary tract infection) Current Visit: Yes Status: Acute Qualifiers: Qualified Code(s): N39.0 - Urinary tract infection, site not specified; R31.9 - Hematuria, unspecified (5) Hyponatremia Current Visit: Yes Status: Acute Subjective Principal diagnosis: right hip pain Interval history: Patient seen. She is asleep. No new report. Objective - Vital Signs Vital signs: Vital Signs Temp Pulse Resp BP Pulse Ox 03/07/18 12:26 99.6 F 67 20 124/69 97 03/07/18 07:50 18 99 03/07/18 06:56 99 F 68 20 160/64 98 03/07/18 03:40 100.2 F H 69 16 147/52 97 03/06/18 23:25 97.9 F 75 16 147/70 98 03/06/18 20:36 14 95 03/06/18 19:30 98.7 F 69 16 158/73 97 03/06/18 17:17 99.1 F 70 20 142/56 97 03/06/18 16:51 97.5 F L 18 156/69 03/06/18 16:40 129/62 03/06/18 16:25 138/71 03/06/18 16:10 139/58 03/06/18 15:55 138/62 03/06/18 15:40 134/59 03/06/18 15:25 139/82 03/06/18 15:10 142/56 03/06/18 14:55 133/60 03/06/18 14:40 128/61 03/06/18 14:25 133/59 03/06/18 14:10 141/59 03/06/18 13:55 147/57 03/06/18 13:40 96.9 F L 18 148/66 Intake and Output 03/06/18 03/07/18 03/07/18 23:59 07:59 15:59 Intake Total 100 / 100 Output Total 3600 / 3600 Balance -3500 / -3500 Intake: IV Fluids 100 / 100 Vancocin 500 MG In 0.9 % Sodium 100 / 100 Chloride (Mini-Bag +) 100 ML @ 100 mls/hr IVPB ONCE ONE Rx#: [id number] Output: Urine 0 / 0 Total Dialysis (HD) Output 3600 / 3600 Other: Blood Glucose* 201 115 216 Hemodialysis Net Fluid Removed 3000 (mL) - General Appearance General appearance: Present: well-developed, well-nourished EENT: Present: ATNC Neck: Present: supple Cardiology: Present: regular rate Musculoskeletal: Present: no cyanosis - Lab 03/07/18 06:01 03/07/18 06:01 Most recent lab results Calcium 9.3 mg/dL (8.6-10.3) 03/07/18 06:01 Consult Discharge Plan - Plan Referrals: Jay Valenzuela DO [Primary Care Provider] - (office will call patient for an appointment when there is sooner available)
--- NOTE | 2018-03-07 15:54 | Internal Med Progress Note ---
Hospitalist Progress Note - Encounter Date of Encounter: 03/07/18 Time of Encounter: 15:40 - Subjective Interval History: SUBJECTIVE: The patient continues to feel weak. She had hemodialysis yesterday. Denies difficulty breathing, on supplemental oxygen at 3 L/min nasal cannula. Her right hip pain is under control. As long as she is not moving around. She gets Tylenol occasionally. Denies chest pain. Denies abdominal pain, nausea and vomiting. OBJECTIVE: Skin: Free of rash and discoloration. ENMT: Oral/pharyngeal mucosa is normal in appearance. Eyes: Sclera is white. There is no discharge from eyes. Respiratory: Normal breath sounds; no crackles or wheezes. CV: Heart is regular; no gallop or murmur. GI: Abdomen is soft and not tender. There is no palpable mass or visceromegaly. Neuro: There is no focal deficits. ADDITIONAL DATA: 03/02/18: 2 of 2 blood cultures are growing Enterococcus faecalis. 03/04/18: 1 of 2 blood cultures are growing Enterococcus faecalis. 03/04/18: Culture of hemodialysis catheter tip is growing MRSA. Hemoglobin is 10.5 with WBC of 11.1 thousand (13.8 thousand on the day before) and normal platelet count. Electrolytes are normal. Creatinine is 3.83; end-stage renal disease. ASSESSMENT AND PLAN: Catheter related bloodstream infection/bacteremia. Infectious disease is consulted. The patient is on IV vancomycin. Her sepsis seems to be under control. One can see decreasing WBC count. Severe degenerative joint disease of right hip. However, her pain is under control with Tylenol only. 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 On diabetic diet and when necessary Humalog. On clonidine, Coreg and hydralazine. COPD. Without exacerbation. To continue Spiriva and Symbicort. Continue when necessary nebulizer treatments with albuterol. The patient will likely need 2 weeks of treatment with IV vancomycin. - Exam Vitals: Temp Pulse Resp BP Pulse Ox 99.6 F 67 20 124/69 97 03/07/18 12:26 03/07/18 12:26 03/07/18 12:26 03/07/18 12:26 03/07/18 12:26 Exam: xx - Assessment and Plan (1) CRBSI (catheter-related bloodstream infection) Current Visit: Yes Status: Acute (2) Sepsis Current Visit: Yes Status: Acute (3) Degenerative joint disease of right hip Current Visit: Yes Status: Acute (4) Type 2 diabetes mellitus Current Visit: Yes Status: Chronic (5) Hypertensive renal disease with renal failure Current Visit: Yes Status: Chronic (6) COPD (chronic obstructive pulmonary disease) Current Visit: Yes Status: Chronic - Time Spent with Patient Total time spent is greater than 50% in coordination of care (as documented) at patient's floor/unit and/or counseling patient: 25 - 35 minutes Plan of Care Discussed with: patient Internal Medicine: Result - Labs CBC & Chem 7: 03/07/18 06:01 03/07/18 06:01 Labs: Short CBC 03/07/18 Range/Units 06:01 WBC 11.1 (4.3-11.1) K/mcL Hgb 10.5 L (11.5-15.4) g/dL Hct 33.5 L (35.3-44.9) % Plt Count 218 (140-400) K/mcL BMP 03/07/18 06:01 Sodium 133 L Potassium 4.1 Chloride 96 L Carbon Dioxide 29 BUN 32 H Creatinine 3.83 H Glucose 118 H Calcium 9.3 - ABG Interpretation ABG results: PT/INR, D-dimer PT 12.1 Seconds (9.4-12.1) 03/02/18 07:55 Consult Discharge Plan - Plan Referrals: Jay Valenzuela DO [Primary Care Provider] - (office will call patient for an appointment when there is sooner available) (2) Sepsis Qualifiers: Sepsis type: methicillin resistant Staphylococcus aureus Qualified Code(s): A41.02 - Sepsis due to Methicillin resistant Staphylococcus aureus (4) Type 2 diabetes mellitus Qualifiers: Diabetes mellitus liquefier insulin use: with halfway use Diabetes mellitus complication status: with kidney complications Diabetes mellitus complication detail: with chronic kidney disease Chronic kidney disease stage: on chronic dialysis Qualified Code(s): E11.22 - Type 2 diabetes mellitus with diabetic chronic kidney disease; N18.6 - End stage renal disease; Z79.4 - longterm (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
[2018-03-07] MEDS: Famotidine 20 MG TABLET PO SCH (21:06)
[2018-03-07] MEDS: risperiDONE 1 MG TABLET PO SCH (21:06)
[2018-03-07] MEDS: traZODone 50 MG TABLET PO SCH (21:07)
[2018-03-08] MEDS: *HR* Heparin 5,000 UNIT/ML VIAL SQ SCH ×2 (05:51→17:17)
[2018-03-08 07:00] LABS: Hematocrit 31.9 % (35.3-44.9); Hemoglobin 9.9 g/dL (11.5-15.4); Mean Corpuscular Hemoglobin 27.4 pg (28.0-33.3); Mean Corpuscular Volume 88.4 fL (83.0-100.0); Mean Platelet Volume 8.9 fL (9.4-12.4); Platelet Count 206 K/mcL (140-400); Red Blood Count 3.61 M/mcL (3.82-4.97); Red Cell Distribution Width 15.6 % (11.5-14.5)
[2018-03-08 07:19] LABS: Calcium 9.3 mg/dL (8.6-10.3); Potassium 3.9 mEq/L (3.5-5.1)
[2018-03-08] MEDS: Insulin LISPRO 300 UNITS/3 ML VIAL SQ SCH ×4 (07:45→20:54)
[2018-03-08] MEDS: Aspirin Enteric Coated 81 MG Tablet PO SCH (09:16)
[2018-03-08] MEDS: hydrALAZINE 25 MG TABLET PO SCH ×3 (09:16→20:53)
[2018-03-08] MEDS: ALPRAZolam 1 MG TABLET PO SCH ×2 (09:16→20:53)
[2018-03-08] MEDS: Acetaminophen 325 MG TABLET PO PRN (09:16)
[2018-03-08] MEDS: Ranolazine 500 MG TAB.ER.12H PO SCH ×2 (09:16→20:53)
[2018-03-08] MEDS: metOLazone 5 MG TABLET PO SCH (09:17)
[2018-03-08] MEDS: Furosemide 20 MG TABLET PO SCH (09:17)
[2018-03-08] MEDS: cloNIDine HCl 0.1 MG TABLET PO SCH ×3 (09:17→20:53)
[2018-03-08] MEDS: NIFEdipine XL (24 HR) 30 MG TAB.ER.24 PO SCH (09:17)
[2018-03-08] MEDS: Fenofibrate 54 MG TABLET PO SCH (09:17)
--- NOTE | 2018-03-08 10:05 | Nephrology Progress Note ---
Date of Encounter: 03/08/18 Time of Encounter: 10:03 - Assessment and Plan (1) Acute right hip pain Current Visit: Yes Status: Acute Per primary. (2) Osteoarthritis of right hip Current Visit: Yes Status: Acute X-ray right hip and CT pelvis reflects degenerative osteoarthritis, rule out septic arthritis. Per primary. Qualifiers: Osteoarthritis type: unspecified Qualified Code(s): M16.11 - Unilateral primary osteoarthritis, right hip (3) UTI (urinary tract infection) Current Visit: Yes Status: Acute UA + for UTI. Per primary. Qualifiers: Qualified Code(s): N39.0 - Urinary tract infection, site not specified; R31.9 - Hematuria, unspecified (4) Hyponatremia Current Visit: Yes Status: Acute NA ,130 no signs and symptoms per patient. (5) ESRD (end stage renal disease) on dialysis Current Visit: Yes Status: Acute Current regimen is TTS at [facility] Pt's HD line was not functioning well. Blood cultures ordered x 2 sets 03/04/18 (+MRSA). HD line exchanged 03/05/2018. HD ordered for today. Spoke with ID regarding line holiday, they will redraw blood cultures and await recommendations. Renal diet Renal vitamins Strict I/O Avoid nephrotoxins and renal dose all medications. (6) CRBSI (catheter-related bloodstream infection) Current Visit: Yes Status: Acute HD ordered for today. IR consulted to remove permacath after HD today. Spoke with Dr. Nogueira and he states it will be the telephone directory deliverer physician that will come to pull permacath after HD is completed today. Staff informed to page IR through paging center to facilitate HD line being removed today for line holiday. Qualifiers: Qualified Code(s): T80.211A - Bloodstream infection due to central venous catheter, initial encounter Subjective Principal diagnosis: right hip pain Interval history: Pt seen and examined, is sitting up in chair. Feeling well. Denies any chest pain or shortness of breath. Denies nausea, vomiting, or diarrhea. No acute events overnight. Objective - Vital Signs Vital signs: Vital Signs Temp Pulse Resp BP Pulse Ox 03/08/18 07:15 98.4 F 63 18 131/52 96 03/08/18 05:00 98.9 F 64 16 136/56 93 03/07/18 23:30 99.1 F 68 16 136/54 96 03/07/18 20:41 100.1 F H 70 16 146/60 90 03/07/18 20:16 18 93 03/07/18 17:40 99.5 F 72 20 129/49 93 03/07/18 12:26 99.6 F 67 20 124/69 97 Intake and Output 03/07/18 03/08/18 03/08/18 23:59 07:59 15:59 Intake Total 1250 / 1250 0 / 0 Output Total 0 / 0 Balance 1250 / 1250 0 / 0 Intake: IV Fluids 1250 / 1250 0.9 % Sodium Chloride 1,000 ML 1000 / 1000 @ As Directed PRIME .Q0M DAMION Rx #:[id number] Oral 0 / 0 0 / 0 Output: Urine 0 / 0 Other: Stool Size Smear # Bowel Movements 1 Blood Glucose* 134 121 - General Appearance General appearance: Present: well-nourished EENT: Present: ATNC, hearing intact, vision intact Neck: Present: supple Respiratory: Present: clear Cardiology: Present: edema (Trace bilat lower extremity edema noted. ), normal S1, normal S2 Dialysis Vascular Access: Venous Catheter (DRSG C/D/I) Gastrointestinal: Present: normoactive bowel sounds, no tenderness, no guarding Integumentary: Present: no rash Neurologic: Present: alert and oriented x3 Musculoskeletal: Present: no deformities, no erythema Psychiatric: Present: mood/affect appropriate, cooperative - Lab 03/08/18 06:46 03/08/18 06:46 Most recent lab results Calcium 9.3 mg/dL (8.6-10.3) 03/08/18 06:46 Consult Discharge Plan - Plan Referrals: Jay Valenzuela DO [Primary Care Provider] - (office will call patient for an appointment when there is sooner available)
--- NOTE | 2018-03-08 10:22 | Infectious Disease Progress No ---
Date of Encounter: 03/08/18 Time of Encounter: 10:20 - Assessment and Plan (1) Sepsis Current Visit: Yes Status: Acute Patient had 2 sepsis criteria on admission. Likely secondary to bacteremia. White blood cell count improved. Low-grade ever overnight Tmax 100.2 Blood cultures drawn 03/02/18 are +2 out of 2 sets for enterococcus faecalis, AmpS. Repeat blood cultures drawn 03/04/18 (one from peripheral and one centrally) are positive 1/2 (peripheral). Culture from the HD line is no growth. Recommendations: Repeat peripheral blood cultures x 2 sets. Get TTE. Discussed the HD catheter plan with nephrology. Plan to dialyze the patient today and remove the dialysis catheter to allow for an adequate line holiday before the patient will need HD again later this week. Continue Vancomycin IV for ease of dosing as an outpatient since it can be given at HD. Pharmacy to dose. Goal trough ~15. Duration of treatment depends on the clinical picture. Monitor renal function and for drug toxicity and dose-adjust antibiotics. Qualifiers: Sepsis type: methicillin resistant Staphylococcus aureus Qualified Code(s): A41.02 - Sepsis due to Methicillin resistant Staphylococcus aureus (2) Bacteremia Current Visit: No Status: Acute Causative organism: Enterococcus faecalis, AmpS and MRSA. Source: likely the HD catheter. Blood cultures drawn 03/02/18 are positive 2/2 sets (peripheral) for Enterococcus faecalis. Repeat blood cultures drawn 03/04/18 are positive 1/2 sets from a peripheral stick. Culture from the HD catheter is NGTD. HD catheter tip culture is positive for MRSA and E. faecalis. No endocarditis stigmata noted on exam. The patient has one major and one minor Modified Barron's criteria. Currently on Vanc. (3) Osteoarthritis of right hip Current Visit: Yes Status: Acute CT of the right hip showed no acute fracture or dislocation with minimal degenerative changes at the right hip joint space. Status post CT-guided arthrocentesis 03/02/18 by IR. 1ml clear fluid aspirated. Unable to do cell count do to volume of the fluid. Gram stain negative, culture is negative. Low index of suspicion of septic arthritis (either seeding or source of bacte remia). Pain management per the primary team. Qualifiers: Osteoarthritis type: unspecified Qualified Code(s): M16.11 - Unilateral primary osteoarthritis, right hip (4) Hyponatremia Current Visit: Yes Status: Acute Nephrology consulted and following. (5) Constipation Current Visit: No Status: Resolved Resolved. Bowel regimen per the primary team. Qualifiers: Constipation type: unspecified constipation type Qualified Code(s): K59.00 - Constipation, unspecified (6) CAD (coronary artery disease) Current Visit: No Status: Chronic Qualifiers: Coronary Disease-Associated Artery/Lesion type: [place] artery [place] vs. transplanted heart: [place] heart Associated angina: without angina Qualified Code(s): I25.10 - Atherosclerotic heart disease of [place] coronary artery without angina pectoris (7) Obesity Current Visit: No Status: Chronic Qualifiers: Obesity type: unspecified obesity type Obesity classification: adult class 3 (BMI >= 40) Serious obesity comorbidity presence: with serious comorbidity Body mass index: BMI 45.0-49.9 Qualified Code(s): E66.01 - Morbid (severe) obesity due to excess calories; Z68.42 - Body mass index (BMI) 45.0-49.9, adult (8) Diabetes mellitus Current Visit: No Status: Chronic Qualifiers: Diabetes mellitus type: type 2 Diabetes mellitus supervisor machine workers insulin use: with supervisor machine workers use Diabetes mellitus complication status: with kidney complications Diabetes mellitus complication detail: with chronic kidney disease Chronic kidney disease stage: stage 4 (severe) Qualified Code(s): E11.22 - Type 2 diabetes mellitus with diabetic chronic kidney disease; N18.4 - Chronic kidney disease, stage 4 (severe); Z79.4 - 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 (12) Back pain Current Visit: Yes Status: Acute Etiology unclear. CT of the L-spine, abdomen, and pelvis negative for acute abnormality. Pain management per the primary team. Qualifiers: Back pain location: low back pain Chronicity: acute Back pain laterality: midline Sciatica presence: unspecified whether sciatica present Qualified Code(s): M54.5 - Low back pain - Subjective Interval history: Patient seen and examined. No acute events noted overnight. Denies fevers, chills, or rigors. Denies chest pain, shortness of breath, or cough. Denies nausea, vomiting, diarrhea, or constipation. She denies abdominal pain or urinary complaints. She complains of pain in her lower back and bottom from lying in bed. She denies any joint or extremity pain. She denies any oral thrush or new skin lesions. Status post HD line exchange 03/04/18. Infect Dis PN-Objective Data - Labs CBC & Chem 7: 03/08/18 06:46 03/08/18 06:46 Labs: Laboratory Results - last 24 hr 03/06/18 03/07/18 03/07/18 19:34 07:01 12:30 WBC RBC Hgb Hct MCV MCH MCHC RDW Plt Count MPV Sodium Potassium Chloride Carbon Dioxide BUN Creatinine Est GFR ( Amer) Est GFR (Non-Af Amer) BUN/Creatinine Ratio Glucose POC Glucose 201 H 115 H 216 H Calculated Osmolality Calcium 03/07/18 03/08/18 03/08/18 20:38 06:46 06:46 WBC 11.3 H RBC 3.61 L Hgb 9.9 L Hct 31.9 L MCV 88.4 MCH 27.4 L MCHC 31.0 L RDW 15.6 H Plt Count 206 MPV 8.9 L Sodium 130 L Potassium 3.9 Chloride 93 L Carbon Dioxide 28 BUN 50 H Creatinine 5.11 H Est GFR ( Amer) 10 L Est GFR (Non-Af Amer) 8 L BUN/Creatinine Ratio 10 Glucose 109 H POC Glucose 134 H Calculated Osmolality 284 Calcium 9.3 Cultures: Cultures 03/04/18 14:00 Catheter Tip Culture - Final Intravenous or Arterial Cath Methicillin Resistant S.aureus Enterococcus faecalis 03/04/18 10:50 Blood Culture - Final Peripheral Venipuncture Enterococcus faecalis 03/02/18 14:47 Body Fluid Culture - Final Synovial Fluid 03/02/18 07:50 Blood Culture - Final Peripheral Venipuncture Enterococcus faecalis 03/02/18 07:55 Blood Culture - Final Peripheral Venipuncture Enterococcus faecalis 03/04/18 10:40 Blood Culture - Preliminary Central Venous Catheter Culture is incubating and being continuously monitored for growth. Final report to follow. 03/02/18 07:25 Urine Culture - Final Urine,Clean Catch Serology 03/04/18 03/02/18 03/02/18 Range/Units 10:50 16:28 14:47 Urine Color (Yellow) Urine Clarity (Clear) Urine pH (5.0-8.0) pH Units Ur Specific [place] (1.010-1.025) Urine Protein (Neg-Trace) mg/dL Urine Glucose (UA) (Normal) mg/dL Urine Ketones (Negative) mg/dL Urine Blood (Negative) Urine Nitrite (Negative) Urine Bilirubin (Negative) Urine Urobilinogen (Normal) mg/dL Ur Leukocyte Esterase (Negative) Urine Microscopic RBC (0-3) per hpf Urine Microscopic WBC (0-3) per hpf Ur Squamous Epith Cells (None-Few) per lpf Ur Transition Epith Cell (None-Few) per hpf Ur Renal Epithelial Cell (None-Few) per hpf Urine Bacteria (None-Few) per hpf Hyaline Casts (None-Few) per lpf Urine Yeast (None Seen) per hpf Ur Culture Indicated? (NO) Synovial Source right hip Synovial Color Colorless (Straw) Synovial Appearance Clear (Clear-Hazy) Synovial Volume 1.0 mL Synovial RBC TNP Synovial Tot Nuc Cell TNP Synovial Band Neuts TNP Synovial Basophils TNP Synovial Eosinophils TNP Synovial Seg Neuts % TNP Synovial Lymphocytes % TNP Synovial Monocytes % TNP Synovial Other Cells % TNP A. baumannii (PCR) Not Detected (Not Detect) Kerry albicans (PCR) Not Detected (Not Detect) C. glabrata (PCR) Not Detected (Not Detect) C. krusei (PCR) Not Detected (Not Detect) C. parapsilosis (PCR) Not Detected (Not Detect) C. tropicalis (PCR) Not Detected (Not Detect) Enterobacteriac sp PCR Not Detected (Not Detect) E. cloacae complex PCR Not Detected (Not Detect) Enterococcus sp PCR DETECTED A (Not Detect) E. coli (PCR) Not Detected (Not Detect) H. influenzae (PCR) Not Detected (Not Detect) Hep Bs Antigen Nonreactive (Nonreactive) Hep Bs Antibody < 3.10 L (10.00 - ) mIU/mL Klebsiella oxytoca PCR Not Detected (Not Detect) Klebsiella pneumoniae Not Detected (Not Detect) List. monocytogenes PCR Not Detected (Not Detect) N. meningitidis (PCR) Not Detected (Not Detect) Proteus species (PCR) Not Detected (Not Detect) Serratia marcescens PCR Not Detected (Not Detect) Staphylococcus sp PCR Not Detected (Not Detect) Staph aureus (PCR) Not Detected (Not Detect) mecA-Methicil Res Gene Not Detected (Not Detect) Streptococcus sp PCR Not Detected (Not Detect) Group A Strep DNA Not Detected (Not Detect) Group B Strep (PCR) Not Detected (Not Detect) Strep pneumoniae (PCR) Not Detected (Not Detect) P. aeruginosa (PCR) Not Detected (Not Detect) Sil/B-Vanco Res Genes Not Detected (Not Detect) KPC (blaKPC) Detect PCR Not Detected (Not Detect) 03/02/18 03/02/18 Range/Units 07:55 07:25 Urine Color Yellow (Yellow) Urine Clarity Hazy A (Clear) Urine pH 6.0 (5.0-8.0) pH Units Ur Specific [place] 1.009 L (1.010-1.025) Urine Protein >=300 H (Neg-Trace) mg/dL Urine Glucose (UA) 100 H (Normal) mg/dL Urine Ketones Negative (Negative) mg/dL Urine Blood Negative (Negative) Urine Nitrite Negative (Negative) Urine Bilirubin Negative (Negative) Urine Urobilinogen Normal (Normal) mg/dL Ur Leukocyte Esterase Small H (Negative) Urine Microscopic RBC 0-3 (0-3) per hpf Urine Microscopic WBC 30-50 H (0-3) per hpf Ur Squamous Epith Cells Few (None-Few) per lpf Ur Transition Epith Cell Few (None-Few) per hpf Ur Renal Epithelial Cell Few (None-Few) per hpf Urine Bacteria None Seen (None-Few) per hpf Hyaline Casts None Seen (None-Few) per lpf Urine Yeast Few H (None Seen) per hpf Ur Culture Indicated? YES A (NO) Synovial Source Synovial Color (Straw) Synovial Appearance (Clear-Hazy) Synovial Volume mL Synovial RBC Synovial Tot Nuc Cell Synovial Band Neuts Synovial Basophils Synovial Eosinophils Synovial Seg Neuts % Synovial Lymphocytes % Synovial Monocytes % Synovial Other Cells % A. baumannii (PCR) Not Detected (Not Detect) Kerry albicans (PCR) Not Detected (Not Detect) C. glabrata (PCR) Not Detected (Not Detect) C. krusei (PCR) Not Detected (Not Detect) C. parapsilosis (PCR) Not Detected (Not Detect) C. tropicalis (PCR) Not Detected (Not Detect) Enterobacteriac sp PCR Not Detected (Not Detect) E. cloacae complex PCR Not Detected (Not Detect) Enterococcus sp PCR DETECTED A (Not Detect) E. coli (PCR) Not Detected (Not Detect) H. influenzae (PCR) Not Detected (Not Detect) Hep Bs Antigen (Nonreactive) Hep Bs Antibody (10.00 - ) mIU/mL Klebsiella oxytoca PCR Not Detected (Not Detect) Klebsiella pneumoniae Not Detected (Not Detect) List. monocytogenes PCR Not Detected (Not Detect) N. meningitidis (PCR) Not Detected (Not Detect) Proteus species (PCR) Not Detected (Not Detect) Serratia marcescens PCR Not Detected (Not Detect) Staphylococcus sp PCR Not Detected (Not Detect) Staph aureus (PCR) Not Detected (Not Detect) mecA-Methicil Res Gene N/A (Not Detect) Streptococcus sp PCR Not Detected (Not Detect) Group A Strep DNA Not Detected (Not Detect) Group B Strep (PCR) Not Detected (Not Detect) Strep pneumoniae (PCR) Not Detected (Not Detect) P. aeruginosa (PCR) Not Detected (Not Detect) Sil/B-Vanco Res Genes Not Detected (Not Detect) KPC (blaKPC) Detect PCR N/A (Not Detect) Exam - Constitutional Vitals: Temp Pulse Resp BP Pulse Ox 98.4 F 63 18 131/52 96 03/08/18 07:15 03/08/18 07:15 03/08/18 07:15 03/08/18 07:15 03/08/18 07:15 General appearance: cooperative, no acute distress, obese - Head Head exam: Present: atraumatic, normal inspection, normocephalic - Eye Eye exam: Present: EOMI, normal appearance, PERRL Pupils: Present: normal accommodation Additional comments: No subconjunctival hemorrhage noted. - ENT ENT exam: Present: mucous membranes moist - Neck Neck exam: Present: normal inspection - Respiratory Respiratory exam: Present: CTAB. Absent: rales, respiratory distress, rhonchi, wheezes - Cardiovascular Cardiovascular exam: Present: RRR, +S1, +S2 - GI/Abdominal GI/Abdominal exam: Present: distended (obese), normal bowel sounds, soft. Absent: tenderness - Extremities Exam Extremities exam: Absent: joint swelling, normal inspection (Venous stasis dermatitis noted to the RLE), pedal edema, tenderness - Back Exam Back exam: Present: normal inspection. Absent: paraspinal tenderness, vertebral tenderness - Neurological Exam Neurological exam: Present: alert, oriented X3, no focal deficits - Psychiatric Psychiatric exam: Present: normal affect, normal mood - Skin Skin exam: Present: dry, intact, normal color, warm Additional comments: No endocarditis stigmata noted. - Additional findings Additional findings: Perma-cath noted to the left upper chest with transparent dressing C/D/I. No erythema, warmth, or drainage noted. Consult Discharge Plan - Plan Referrals: Jay Valenzuela DO [Primary Care Provider] - (office will call patient for an appointment when there is sooner available) - Attending Attestation I examined this patient and my medical decision-making was reviewed with the Resident Physician. I agree with the documented findings, disposition and treatment plan as described except to the extent set forth below.
[2018-03-08] MEDS: Budesonide/Formoterol 160/4.5 1 PUFF INH IH SCH ×2 (10:28→22:30)
[2018-03-08] MEDS: Tiotropium 18 MCG inhalation IH SCH (10:29)
[2018-03-08] MEDS ORDERED: 0.9 % Sodium Chloride 250 ML IVC PRN (10:49)
[2018-03-08] MEDS: Nystatin POWDER 30 GM BOTTLE TP SCH ×2 (11:52→20:54)
--- NOTE | 2018-03-08 17:19 | IR Procedure Note ---
Date of procedure: 03/08/18 Consent Obtained: Verbal consent Timeout: Correct patient and procedure verified, Correct site verified, Time out performed, Skin prep completed Local anesthetic: Lidocaine 1% Indications: Sepsis Procedure Performed: Removal permacath Was there an parts room assistant present: No Estimated blood loss (cc): 0 Complications: None; Tolerated procedure well Specimen: none
[2018-03-08] MEDS: Famotidine 20 MG TABLET PO SCH (20:53)
[2018-03-08] MEDS: risperiDONE 1 MG TABLET PO SCH (20:53)
[2018-03-08] MEDS: traZODone 50 MG TABLET PO SCH (20:53)
--- NOTE | 2018-03-08 21:59 | Internal Med Progress Note ---
Hospitalist Progress Note - Encounter Date of Encounter: 03/08/18 Time of Encounter: 19:00 - Subjective Interval History: SUBJECTIVE: The patient feels weak/tired. Otherwise, she is not voicing any other complaints. She got her hemodialysis at today; had one yesterday. Denies chest pain and difficulty breathing. Denies coughing and wheezing. She is on supplemental oxygen at 2 L/min nasal cannula. Denies abdominal pain, nausea and vomiting. OBJECTIVE: Skin: Free of rash and discoloration. ENMT: Oral/pharyngeal mucosa is normal in appearance. Eyes: Sclera is white. There is no discharge from eyes. Respiratory: Normal breath sounds; no crackles or wheezes. CV: Heart is regular; no gallop or murmur. GI: Abdomen is soft and not tender. There is no palpable mass or visceromegaly. Neuro: There is no focal deficits. ADDITIONAL DATA: 03/04/18: One culture is growing Enterococcus faecalis. One culture is growing gram-positive cocci. 03/04/18: Culture of hemodialysis catheter tip is growing MRSA and Enterococcus faecalis. 03/02/18: 2 of 2 blood cultures are growing Enterococcus faecalis. Hemoglobin is 9.9 with WBC of 11.3 thousand and normal platelet count. Sodium is 130. With normal potassium/chloride/bicarb. Creatinine is 5.11; she is end-stage renal disease. ASSESSMENT AND PLAN: Catheter related bloodstream infection/bacteremia. Infectious disease is consulted. The patient is on IV vancomycin. Infected permacath was removed today. A new hemodialysis catheter will be inserted in a couple days. Severe degenerative joint disease of right hip. She gets when necessary [place]. 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 On diabetic diet and when necessary Humalog. On clonidine, Coreg and hydralazine. COPD. Without exacerbation. To continue Spiriva and Symbicort. Continue when necessary nebulizer treatments with albuterol. The patient will be getting IV vancomycin at hemodialysis. - Exam Vitals: Temp Pulse Resp BP Pulse Ox 99.0 F 65 16 154/57 99 03/08/18 20:29 03/08/18 20:29 03/08/18 20:29 03/08/18 20:29 03/08/18 20:29 Exam: xx - Assessment and Plan (1) CRBSI (catheter-related bloodstream infection) Current Visit: Yes Status: Acute (2) Sepsis Current Visit: Yes Status: Acute (3) Degenerative joint disease of right hip Current Visit: Yes Status: Acute (4) Type 2 diabetes mellitus Current Visit: Yes Status: Chronic (5) Hypertensive renal disease with renal failure Current Visit: Yes Status: Chronic (6) COPD (chronic obstructive pulmonary disease) Current Visit: Yes Status: Chronic - Time Spent with Patient Total time spent is greater than 50% in coordination of care (as documented) at patient's floor/unit and/or counseling patient: 25 - 35 minutes Plan of Care Discussed with: patient Internal Medicine: Result - Labs CBC & Chem 7: 03/08/18 06:46 03/08/18 06:46 Labs: Short CBC 03/08/18 Range/Units 06:46 WBC 11.3 H (4.3-11.1) K/mcL Hgb 9.9 L (11.5-15.4) g/dL Hct 31.9 L (35.3-44.9) % Plt Count 206 (140-400) K/mcL BMP 03/08/18 06:46 Sodium 130 L Potassium 3.9 Chloride 93 L Carbon Dioxide 28 BUN 50 H Creatinine 5.11 H Glucose 109 H Calcium 9.3 - ABG Interpretation ABG results: PT/INR, D-dimer PT 12.1 Seconds (9.4-12.1) 03/02/18 07:55 Consult Discharge Plan - Plan Referrals: Jay Valenzuela DO [Primary Care Provider] - (office will call patient for an appointment when there is sooner available) (1) CRBSI (catheter-related bloodstream infection) Qualifiers: Qualified Code(s): T80.211A - Bloodstream infection due to central venous catheter, initial encounter (2) Sepsis Qualifiers: Sepsis type: methicillin resistant Staphylococcus aureus Qualified Code(s): A41.02 - Sepsis due to Methicillin resistant Staphylococcus aureus (4) Type 2 diabetes mellitus Qualifiers: Diabetes mellitus skilled nursing insulin use: with skilled nursing use Diabetes mellitus complication status: with kidney complications Diabetes mellitus complication detail: with chronic kidney disease Chronic kidney disease stage: on chronic dialysis Qualified Code(s): E11.22 - Type 2 diabetes mellitus with diabetic chronic kidney disease; N18.6 - End stage renal disease; Z79.4 - intermediate designer (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
[2018-03-09 05:12] LABS: Hematocrit 31.9 % (35.3-44.9); Hemoglobin 9.9 g/dL (11.5-15.4); Mean Corpuscular Hemoglobin 27.4 pg (28.0-33.3); Mean Corpuscular Volume 88.4 fL (83.0-100.0); Platelet Count 237 K/mcL (140-400); Red Blood Count 3.61 M/mcL (3.82-4.97); Red Cell Distribution Width 15.3 % (11.5-14.5)
[2018-03-09] MEDS: *HR* Heparin 5,000 UNIT/ML VIAL SQ SCH ×2 (05:30→17:47)
[2018-03-09 06:08] LABS: Calcium 9.2 mg/dL (8.6-10.3); Potassium 4.1 mEq/L (3.5-5.1)
[2018-03-09] MEDS: Budesonide/Formoterol 160/4.5 1 PUFF INH IH SCH ×2 (07:48→22:02)
[2018-03-09] MEDS: Tiotropium 18 MCG inhalation IH SCH (07:48)
[2018-03-09] MEDS: Insulin LISPRO 300 UNITS/3 ML VIAL SQ SCH ×4 (08:21→21:08)
[2018-03-09] MEDS: hydrALAZINE 25 MG TABLET PO SCH ×3 (08:22→22:55)
[2018-03-09] MEDS: Furosemide 20 MG TABLET PO SCH (08:22)
[2018-03-09] MEDS: Fenofibrate 54 MG TABLET PO SCH (08:22)
[2018-03-09] MEDS: metOLazone 5 MG TABLET PO SCH (08:22)
[2018-03-09] MEDS: cloNIDine HCl 0.1 MG TABLET PO SCH ×3 (08:22→21:08)
[2018-03-09] MEDS: NIFEdipine XL (24 HR) 30 MG TAB.ER.24 PO SCH (08:22)
[2018-03-09] MEDS: Aspirin Enteric Coated 81 MG Tablet PO SCH (08:22)
[2018-03-09] MEDS: ALPRAZolam 1 MG TABLET PO SCH ×2 (08:22→21:03)
[2018-03-09] MEDS: Ranolazine 500 MG TAB.ER.12H PO SCH ×2 (08:22→21:03)
[2018-03-09] MEDS: Nystatin POWDER 30 GM BOTTLE TP SCH ×2 (08:24→21:04)
[2018-03-09] MEDS ORDERED: Vancomycin 500 MG in 0.9 % Sodium Chloride Mini Bag 100 ML IVPB ONE (09:05)
--- NOTE | 2018-03-09 09:50 | Infectious Disease Progress No ---
Date of Encounter: 03/09/18 Time of Encounter: 08:55 - Assessment and Plan (1) Sepsis Current Visit: Yes Status: Acute Patient had 2 sepsis criteria on admission. Likely secondary to bacteremia. White blood cell count improved. Low-grade ever overnight Tmax 100.1. Blood cultures drawn 03/02/18 are +2 out of 2 sets for enterococcus faecalis, AmpS. Repeat blood cultures drawn 03/04/18 (one from peripheral and one centrally) are positive 2/2. Additional peripheral cultures drawn 03/08/18 are pending x 2 sets. Recommendations: Await blood culture results. Discussed the HD catheter plan with nephrology. Dialyzed yesterday and HD catheter removed. Plan to give a line holiday and replace line when ready for HD. Continue Vancomycin IV for ease of dosing as an outpatient since it can be given at HD. Pharmacy to dose. Goal trough ~15. Duration of treatment depends on the clinical picture. Monitor renal function and for drug toxicity and dose-adjust antibiotics. Qualifiers: Sepsis type: methicillin resistant Staphylococcus aureus Qualified Code(s): A41.02 - Sepsis due to Methicillin resistant Staphylococcus aureus (2) Bacteremia Current Visit: No Status: Acute Causative organism: Enterococcus faecalis, AmpS and MRSA. Source: likely the HD catheter. Blood cultures drawn 03/02/18 are positive 2/2 sets (peripheral) for Enterococcus faecalis. Repeat blood cultures drawn 03/04/18 are positive 2/2 (one central and one pe ripheral). Repeat blood cultures drawn 03/08/18 are pending x 2 sets. HD catheter tip culture is positive for MRSA and E. faecalis. No endocarditis stigmata noted on exam. The patient has one major and one minor Modified Barron's criteria. Currently on Vanc. (3) CLABSI (central line-associated bloodstream infection) Current Visit: Yes Status: Acute Qualifiers: Encounter type: initial encounter Qualified Code(s): T80.211A - Bloodstream infection due to central venous catheter, initial encounter (4) Osteoarthritis of right hip Current Visit: Yes Status: Acute CT of the right hip showed no acute fracture or dislocation with minimal degenerative changes at the right hip joint space. Status post CT-guided arthrocentesis 03/02/18 by IR. 1ml clear fluid aspirated. Unable to do cell count do to volume of the fluid. Gram stain negative, culture is negative. Low index of suspicion of septic arthritis (either seeding or source of bacteremia). Pain management per the primary team. Qualifiers: Osteoarthritis type: unspecified Qualified Code(s): M16.11 - Unilateral primary osteoarthritis, right hip (5) Hyponatremia Current Visit: Yes Status: Resolved Nephrology consulted and following. (6) Constipation Current Visit: No Status: Resolved Resolved. Bowel regimen per the primary team. Qualifiers: Constipation type: unspecified constipation type Qualified Code(s): K59.00 - Constipation, unspecified (7) CAD (coronary artery disease) Current Visit: No Status: Chronic Qualifiers: Coronary Disease-Associated Artery/Lesion type: circle artery [place] vs. transplanted heart: circle heart Associated angina: without angina Qualified Code(s): I25.10 - Atherosclerotic heart disease of circle coronary artery without angina pectoris (8) Obesity Current Visit: No Status: Chronic Qualifiers: Obesity type: unspecified obesity type Obesity classification: adult class 3 (BMI >= 40) Serious obesity comorbidity presence: with serious comorbidity Body mass index: BMI 45.0-49.9 Qualified Code(s): E66.01 - Morbid (severe) obesity due to excess calories; Z68.42 - Body mass index (BMI) 45.0-49.9, adult (9) Diabetes mellitus Current Visit: No Status: Chronic Qualifiers: Diabetes mellitus type: type 2 Diabetes mellitus watermelon harvesting supervisor insulin use: with watermelon harvesting supervisor use Diabetes mellitus complication status: with kidney complications Diabetes mellitus complication detail: with chronic kidney disease Chronic kidney disease stage: stage 4 (severe) Qualified Code(s): E11.22 - Type 2 diabetes mellitus with diabetic chronic kidney disease; N18.4 - Chronic kidney disease, stage 4 (severe); Z79.4 - FDC (current) use of insulin (10) COPD (chronic obstructive pulmonary disease) Current Visit: Yes Status: Acute Qualifiers: COPD type: unspecified COPD Qualified Code(s): J44.9 - Chronic obstructive pulmonary disease, unspecified (11) CCF (congestive cardiac failure) Current Visit: Yes Status: Acute Qualifiers: Heart failure type: diastolic Heart failure chronicity: unspecified Qualified Code(s): I50.30 - Unspecified diastolic (congestive) heart failure (12) ESRD (end stage renal disease) on dialysis Current Visit: Yes Status: Acute Nephrology consulted and following. (13) Back pain Current Visit: Yes Status: Acute Etiology unclear. CT of the L-spine, abdomen, and pelvis negative for acute abnormality. Pain management per the primary team. Qualifiers: Back pain location: low back pain Chronicity: acute Back pain laterality: midline Sciatica presence: unspecified whether sciatica present Qualified Code(s): M54.5 - Low back pain - Subjective Interval history: Patient seen and examined. No acute events noted overnight. Denies fevers, chills, or rigors. Denies chest pain, shortness of breath, or cough. Denies n ausea, vomiting, diarrhea, or constipation. She denies abdominal pain or urinary complaints. She denies any joint, back, or extremity pain. She denies any oral thrush or new skin lesions. Status post HD line exchange 03/04/18 and HD line removal 03/08/18. Infect Dis PN-Objective Data - Labs CBC & Chem 7: 03/10/18 05:14 03/10/18 05:14 Labs: Laboratory Results - last 24 hr 03/07/18 03/08/18 03/08/18 17:50 07:07 11:30 WBC RBC Hgb Hct MCV MCH MCHC RDW Plt Count MPV Sodium Potassium Chloride Carbon Dioxide BUN Creatinine Est GFR ( Amer) Est GFR (Non-Af Amer) BUN/Creatinine Ratio Glucose POC Glucose 219 H 121 H 167 H Calculated Osmolality Calcium Urine Osmolality Urine Sodium Random Vancomycin 03/08/18 03/08/18 03/08/18 16:34 16:40 16:40 WBC RBC Hgb Hct MCV MCH MCHC RDW Plt Count MPV Sodium Potassium Chloride Carbon Dioxide BUN Creatinine Est GFR ( Amer) Est GFR (Non-Af Amer) BUN/Creatinine Ratio Glucose POC Glucose 156 H Calculated Osmolality Calcium Urine Osmolality 255 L Urine Sodium 25.9 Random Vancomycin 03/08/18 03/08/18 03/09/18 20:39 20:51 04:46 WBC 11.9 H RBC 3.61 L Hgb 9.9 L Hct 31.9 L MCV 88.4 MCH 27.4 L MCHC 31.0 L RDW 15.3 H Plt Count 237 MPV 9.0 L Sodium Potassium Chloride Carbon Dioxide BUN Creatinine Est GFR ( Amer) Est GFR (Non-Af Amer) BUN/Creatinine Ratio Glucose POC Glucose 229 H Calculated Osmolality Calcium Urine Osmolality Urine Sodium Random Vancomycin 15 03/09/18 04:46 WBC RBC Hgb Hct MCV MCH MCHC RDW Plt Count MPV Sodium 130 L Potassium 4.1 Chloride 94 L Carbon Dioxide 24 BUN 38 H Creatinine 3.86 H Est GFR ( Amer) 14 L Est GFR (Non-Af Amer) 12 L BUN/Creatinine Ratio 10 Glucose 126 H POC Glucose Calculated Osmolality 281 Calcium 9.2 Urine Osmolality Urine Sodium Random Vancomycin Cultures: Cultures 03/04/18 10:40 Blood Culture - Final Central Venous Catheter Enterococcus faecalis 03/08/18 10:55 Blood Culture - Preliminary Peripheral Venipuncture Culture is incubating and being continuously monitored for growth. Final report to follow. 03/08/18 11:06 Blood Culture - Preliminary Peripheral Venipuncture Culture is incubating and being continuously monitored for growth. Final report to follow. 03/04/18 14:00 Catheter Tip Culture - Final Intravenous or Arterial Cath Methicillin Resistant S.aureus Enterococcus faecalis 03/04/18 10:50 Blood Culture - Final Peripheral Venipuncture Enterococcus faecalis 03/02/18 14:47 Body Fluid Culture - Final Synovial Fluid 03/02/18 07:50 Blood Culture - Final Peripheral Venipuncture Enterococcus faecalis 03/02/18 07:55 Blood Culture - Final Peripheral Venipuncture Enterococcus faecalis 03/02/18 07:25 Urine Culture - Final Urine,Clean Catch Serology 03/08/18 03/08/18 03/04/18 Range/Units 16:40 16:40 10:50 Urine Color (Yellow) Urine Clarity (Clear) Urine pH (5.0-8.0) pH Units Ur Specific [place] (1.010-1.025) Urine Protein (Neg-Trace) mg/dL Urine Glucose (UA) (Normal) mg/dL Urine Ketones (Negative) mg/dL Urine Blood (Negative) Urine Nitrite (Negative) Urine Bilirubin (Negative) Urine Urobilinogen (Normal) mg/dL Ur Leukocyte Esterase (Negative) Urine Microscopic RBC (0-3) per hpf Urine Microscopic WBC (0-3) per hpf Ur Squamous Epith Cells (None-Few) per lpf Ur Transition Epith Cell (None-Few) per hpf Ur Renal Epithelial Cell (None-Few) per hpf Urine Bacteria (None-Few) per hpf Hyaline Casts (None-Few) per lpf Urine Yeast (None Seen) per hpf Ur Culture Indicated? (NO) Urine Osmolality 255 L (300-1090) mOsm/kg Urine Sodium 25.9 mEq/L Synovial Source Synovial Color (Straw) Synovial Appearance (Clear-Hazy) Synovial Volume mL Synovial RBC Synovial Tot Nuc Cell Synovial Band Neuts Synovial Basophils Synovial Eosinophils Synovial Seg Neuts % Synovial Lymphocytes % Synovial Monocytes % Synovial Other Cells % A. baumannii (PCR) Not Detected (Not Detect) Kerry albicans (PCR) Not Detected (Not Detect) C. glabrata (PCR) Not Detected (Not Detect) C. krusei (PCR) Not Detected (Not Detect) C. parapsilosis (PCR) Not Detected (Not Detect) C. tropicalis (PCR) Not Detected (Not Detect) Enterobacteriac sp PCR Not Detected (Not Detect) E. cloacae complex PCR Not Detected (Not Detect) Enterococcus sp PCR DETECTED A (Not Detect) E. coli (PCR) Not Detected (Not Detect) H. influenzae (PCR) Not Detected (Not Detect) Hep Bs Antigen (Nonreactive) Hep Bs Antibody (10.00 - ) mIU/mL Klebsiella oxytoca PCR Not Detected (Not Detect) Klebsiella pneumoniae Not Detected (Not Detect) List. monocytogenes PCR Not Detected (Not Detect) N. meningitidis (PCR) Not Detected (Not Detect) Proteus species (PCR) Not Detected (Not Detect) Serratia marcescens PCR Not Detected (Not Detect) Staphylococcus sp PCR Not Detected (Not Detect) Staph aureus (PCR) Not Detected (Not Detect) mecA-Methicil Res Gene Not Detected (Not Detect) Streptococcus sp PCR Not Detected (Not Detect) Group A Strep DNA Not Detected (Not Detect) Group B Strep (PCR) Not Detected (Not Detect) Strep pneumoniae (PCR) Not Detected (Not Detect) P. aeruginosa (PCR) Not Detected (Not Detect) Sil/B-Vanco Res Genes Not Detected (Not Detect) KPC (blaKPC) Detect PCR Not Detected (Not Detect) 03/02/18 03/02/18 03/02/18 Range/Units 16:28 14:47 07:55 Urine Color (Yellow) Urine Clarity (Clear) Urine pH (5.0-8.0) pH Units Ur Specific [place] (1.010-1.025) Urine Protein (Neg-Trace) mg/dL Urine Glucose (UA) (Normal) mg/dL Urine Ketones (Negative) mg/dL Urine Blood (Negative) Urine Nitrite (Negative) Urine Bilirubin (Negative) Urine Urobilinogen (Normal) mg/dL Ur Leukocyte Esterase (Negative) Urine Microscopic RBC (0-3) per hpf Urine Microscopic WBC (0-3) per hpf Ur Squamous Epith Cells (None-Few) per lpf Ur Transition Epith Cell (None-Few) per hpf Ur Renal Epithelial Cell (None-Few) per hpf Urine Bacteria (None-Few) per hpf Hyaline Casts (None-Few) per lpf Urine Yeast (None Seen) per hpf Ur Culture Indicated? (NO) Urine Osmolality (300-1090) mOsm/kg Urine Sodium mEq/L Synovial Source right hip Synovial Color Colorless (Straw) Synovial Appearance Clear (Clear-Hazy) Synovial Volume 1.0 mL Synovial RBC TNP Synovial Tot Nuc Cell TNP Synovial Band Neuts TNP Synovial Basophils TNP Synovial Eosinophils TNP Synovial Seg Neuts % TNP Synovial Lymphocytes % TNP Synovial Monocytes % TNP Synovial Other Cells % TNP A. baumannii (PCR) Not Detected (Not Detect) Kerry albicans (PCR) Not Detected (Not Detect) C. glabrata (PCR) Not Detected (Not Detect) C. krusei (PCR) Not Detected (Not Detect) C. parapsilosis (PCR) Not Detected (Not Detect) C. tropicalis (PCR) Not Detected (Not Detect) Enterobacteriac sp PCR Not Detected (Not Detect) E. cloacae complex PCR Not Detected (Not Detect) Enterococcus sp PCR DETECTED A (Not Detect) E. coli (PCR) Not Detected (Not Detect) H. influenzae (PCR) Not Detected (Not Detect) Hep Bs Antigen Nonreactive (Nonreactive) Hep Bs Antibody < 3.10 L (10.00 - ) mIU/mL Klebsiella oxytoca PCR Not Detected (Not Detect) Klebsiella pneumoniae Not Detected (Not Detect) List. monocytogenes PCR Not Detected (Not Detect) N. meningitidis (PCR) Not Detected (Not Detect) Proteus species (PCR) Not Detected (Not Detect) Serratia marcescens PCR Not Detected (Not Detect) Staphylococcus sp PCR Not Detected (Not Detect) Staph aureus (PCR) Not Detected (Not Detect) mecA-Methicil Res Gene N/A (Not Detect) Streptococcus sp PCR Not Detected (Not Detect) Group A Strep DNA Not Detected (Not Detect) Group B Strep (PCR) Not Detected (Not Detect) Strep pneumoniae (PCR) Not Detected (Not Detect) P. aeruginosa (PCR) Not Detected (Not Detect) Sil/B-Vanco Res Genes Not Detected (Not Detect) KPC (blaKPC) Detect PCR N/A (Not Detect) 03/02/18 Range/Units 07:25 Urine Color Yellow (Yellow) Urine Clarity Hazy A (Clear) Urine pH 6.0 (5.0-8.0) pH Units Ur Specific [place] 1.009 L (1.010-1.025) Urine Protein >=300 H (Neg-Trace) mg/dL Urine Glucose (UA) 100 H (Normal) mg/dL Urine Ketones Negative (Negative) mg/dL Urine Blood Negative (Negative) Urine Nitrite Negative (Negative) Urine Bilirubin Negative (Negative) Urine Urobilinogen Normal (Normal) mg/dL Ur Leukocyte Esterase Small H (Negative) Urine Microscopic RBC 0-3 (0-3) per hpf Urine Microscopic WBC 30-50 H (0-3) per hpf Ur Squamous Epith Cells Few (None-Few) per lpf Ur Transition Epith Cell Few (None-Few) per hpf Ur Renal Epithelial Cell Few (None-Few) per hpf Urine Bacteria None Seen (None-Few) per hpf Hyaline Casts None Seen (None-Few) per lpf Urine Yeast Few H (None Seen) per hpf Ur Culture Indicated? YES A (NO) Urine Osmolality (300-1090) mOsm/kg Urine Sodium mEq/L Synovial Source Synovial Color (Straw) Synovial Appearance (Clear-Hazy) Synovial Volume mL Synovial RBC Synovial Tot Nuc Cell Synovial Band Neuts Synovial Basophils Synovial Eosinophils Synovial Seg Neuts % Synovial Lymphocytes % Synovial Monocytes % Synovial Other Cells % A. baumannii (PCR) (Not Detect) Kerry albicans (PCR) (Not Detect) C. glabrata (PCR) (Not Detect) C. krusei (PCR) (Not Detect) C. parapsilosis (PCR) (Not Detect) C. tropicalis (PCR) (Not Detect) Enterobacteriac sp PCR (Not Detect) E. cloacae complex PCR (Not Detect) Enterococcus sp PCR (Not Detect) E. coli (PCR) (Not Detect) H. influenzae (PCR) (Not Detect) Hep Bs Antigen (Nonreactive) Hep Bs Antibody (10.00 - ) mIU/mL Klebsiella oxytoca PCR (Not Detect) Klebsiella pneumoniae (Not Detect) List. monocytogenes PCR (Not Detect) N. meningitidis (PCR) (Not Detect) Proteus species (PCR) (Not Detect) Serratia marcescens PCR (Not Detect) Staphylococcus sp PCR (Not Detect) Staph aureus (PCR) (Not Detect) mecA-Methicil Res Gene (Not Detect) Streptococcus sp PCR (Not Detect) Group A Strep DNA (Not Detect) Group B Strep (PCR) (Not Detect) Strep pneumoniae (PCR) (Not Detect) P. aeruginosa (PCR) (Not Detect) Sil/B-Vanco Res Genes (Not Detect) KPC (blaKPC) Detect PCR (Not Detect) - Impressions Impressions Tunnelled Catheter Removal 03/08/18 00:00 IMPRESSION: 1. Successful removal of the left chest wall tunneled dialysis catheter as discussed above. D/ / Natanael Willams MD / Natanael Willams MD Interpreting Provider: Natanael Willams MD Exam - Constitutional Vitals: Temp Pulse Resp BP Pulse Ox 98.7 F 89 18 118/70 96 03/09/18 08:19 03/09/18 08:19 03/09/18 08:19 03/09/18 08:19 03/09/18 08:19 General appearance: cooperative, morbidly obese, no acute distress - Head Head exam: Present: atraumatic, normal inspection, normocephalic - Eye Eye exam: Present: EOMI, normal appearance, PERRL Pupils: Present: normal accommodation Additional comments: No subconjunctival hemorrhage noted. - ENT ENT exam: Present: mucous membranes dry - Neck Neck exam: Present: normal inspection - Respiratory Respiratory exam: Present: CTAB. Absent: rales, respiratory distress, rhonchi, wheezes - Cardiovascular Cardiovascular exam: Present: RRR, +S1, +S2 - GI/Abdominal GI/Abdominal exam: Present: distended (obese), normal bowel sounds, soft. Absent: tenderness - Extremities Exam Extremities exam: Present: pedal edema (Trace RLE). Absent: normal inspection (Venous stasis dermatitis noted to the RLE.) - Neurological Exam Neurological exam: Present: alert, oriented X3, no focal deficits - Psychiatric Psychiatric exam: Present: normal affect, normal mood - Skin Skin exam: Present: dry, intact, normal color, warm - Additional findings Additional findings: Left upper chest dressing C/D/I. Consult Discharge Plan - Plan Referrals: Jay Valenzuela DO [Primary Care Provider] - (office will call patient for an appointment when there is available time sooner) - Attending Attestation I examined this patient and my medical decision-making was reviewed with the Resident Physician. I agree with the documented findings, disposition and treatment plan as described except to the extent set forth below.
--- NOTE | 2018-03-09 10:50 | Nephrology Progress Note ---
Date of Encounter: 03/09/18 Time of Encounter: 10:48 - Assessment and Plan (1) ESRD (end stage renal disease) on dialysis Current Visit: Yes Status: Acute Current regimen is TTS at [facility] Pt's HD line was not functioning well. Blood cultures ordered x 2 sets 03/04/18 (+MRSA). HD line exchanged 03/05/2018. HD completed yesterday, permacath removed by IR on 03/09/18. Will replace permacath on , or when HD is indicated. Renal diet Renal vitamins Strict I/O Avoid nephrotoxins and renal dose all medications. (2) Acute right hip pain Current Visit: Yes Status: Acute Per primary. (3) Osteoarthritis of right hip Current Visit: Yes Status: Acute X-ray right hip and CT pelvis reflects degenerative osteoarthritis, rule out septic arthritis. Per primary. Qualifiers: Osteoarthritis type: unspecified Qualified Code(s): M16.11 - Unilateral primary osteoarthritis, right hip (4) UTI (urinary tract infection) Current Visit: Yes Status: Acute UA + for UTI. Per primary. Qualifiers: Qualified Code(s): N39.0 - Urinary tract infection, site not specified; R31.9 - Hematuria, unspecified (5) Hyponatremia Current Visit: Yes Status: Resolved NA ,130 no signs and symptoms per patient. (6) CRBSI (catheter-related bloodstream infection) Current Visit: Yes Status: Acute HD completed yesterday. See above. Qualifiers: Qualified Code(s): T80.211A - Bloodstream infection due to central venous catheter, initial encounter Subjective Principal diagnosis: right hip pain Interval history: Pt seen and examined, is sitting up in chair. Feeling well. Denies any chest pain or shortness of breath. Denies nausea, vomiting, or diarrhea. No acute events overnight. Objective - Vital Signs Vital signs: Vital Signs Temp Pulse Resp BP Pulse Ox 03/09/18 08:19 98.7 F 89 18 118/70 96 03/09/18 07:49 18 95 03/09/18 04:11 97.7 F 70 16 160/62 93 03/09/18 00:19 100.1 F H 63 15 138/64 97 03/08/18 22:30 16 154/57 99 03/08/18 20:29 99.0 F 65 16 154/57 99 03/08/18 16:31 98.0 F 67 16 122/63 99 03/08/18 15:50 97.5 F L 18 121/54 03/08/18 15:30 109/47 03/08/18 15:15 110/45 03/08/18 15:00 108/58 03/08/18 14:45 119/51 03/08/18 14:30 115/52 03/08/18 14:15 117/52 03/08/18 14:00 114/54 03/08/18 13:45 121/55 03/08/18 13:30 130/53 03/08/18 13:15 123/49 03/08/18 13:00 97.6 F 18 122/49 03/08/18 11:30 98 F 59 18 101/64 98 Intake and Output 03/08/18 03/09/18 03/09/18 23:59 07:59 15:59 Intake Total 120 / 120 Output Total 0 / 0 Balance 120 / 120 Intake: Oral 120 / 120 Output: Urine 0 / 0 Other: Meal Dinner Percent of Meal Consumed 100% # Voids 1 Blood Glucose* 229 122 - General Appearance General appearance: Present: well-developed, well-nourished EENT: Present: ATNC, hearing intact, vision intact Neck: Present: supple Respiratory: Present: clear Cardiology: Present: edema (+2 pitting edema noted to bilat lower extremities.), normal S1, normal S2 Gastrointestinal: Present: normoactive bowel sounds, no tenderness, no guarding Integumentary: Present: no rash, warm and dry Neurologic: Present: alert and oriented x3 Musculoskeletal: Present: no deformities, no erythema Psychiatric: Present: mood/affect appropriate, cooperative - Lab 03/09/18 04:46 03/09/18 04:46 Most recent lab results Calcium 9.2 mg/dL (8.6-10.3) 03/09/18 04:46 Urine Sodium 25.9 mEq/L 03/08/18 16:40 Consult Discharge Plan - Plan Referrals: Jay Valenzuela DO [Primary Care Provider] - (office will call patient for an appointment when there is sooner available)
[2018-03-09] MEDS: risperiDONE 1 MG TABLET PO SCH (21:03)
[2018-03-09] MEDS: Famotidine 20 MG TABLET PO SCH (21:03)
[2018-03-09] MEDS: traZODone 50 MG TABLET PO SCH (21:03)
--- NOTE | 2018-03-10 00:18 | Internal Med Progress Note ---
Hospitalist Progress Note - Encounter Date of Encounter: 03/09/18 Time of Encounter: 19:00 - Subjective Interval History: SUBJECTIVE: The patient feels weak/tired. But stronger than yesterday. Her last hemodialysis was yesterday evening. Denies chest pain and difficulty breathing. Denies coughing and wheezing. She is on supplemental oxygen at 2 L/min nasal cannula. Denies abdominal pain, nausea and vomiting. OBJECTIVE: Skin: Free of rash and discoloration. ENMT: Oral/pharyngeal mucosa is normal in appearance. Eyes: Sclera is white. There is no discharge from eyes. Respiratory: Normal breath sounds; no crackles or wheezes. CV: Heart is regular; no gallop or murmur. GI: Abdomen is soft and not tender. There is no palpable mass or visceromegaly. Neuro: There is no focal deficits. ADDITIONAL DATA: 03/04/18: One culture is growing Enterococcus faecalis. One culture is growing gram-positive cocci. 03/04/18: Culture of hemodialysis catheter tip is growing MRSA and Enterococcus faecalis. 03/02/18: 2 of 2 blood cultures are growing Enterococcus faecalis. ASSESSMENT AND PLAN: Catheter related bloodstream infection/bacteremia. Infectious disease is consulted. The patient is on IV vancomycin. Infected permacath was removed the day before yesterday. A new hemodialysis catheter will be inserted in a couple days. Severe degenerative joint disease of right hip. She gets when necessary [place]. 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 On diabetic diet and when necessary Humalog. On clonidine, Coreg and hydralazine. COPD. Without exacerbation. To continue Spiriva and Symbicort. Continue when necessary nebulizer treatments with albuterol. The patient will be getting IV vancomycin at hemodialysis. - Exam Vitals: Temp Pulse Resp BP Pulse Ox 98.8 F 68 16 149/62 98 03/09/18 22:34 03/09/18 22:34 03/09/18 22:34 03/09/18 22:34 03/09/18 22:34 Exam: xx - Assessment and Plan (1) CRBSI (catheter-related bloodstream infection) Current Visit: Yes Status: Acute (2) Sepsis Current Visit: Yes Status: Acute (3) Degenerative joint disease of right hip Current Visit: Yes Status: Acute (4) Type 2 diabetes mellitus Current Visit: Yes Status: Chronic (5) Hypertensive renal disease with renal failure Current Visit: Yes Status: Chronic (6) COPD (chronic obstructive pulmonary disease) Current Visit: Yes Status: Chronic - Time Spent with Patient Total time spent is greater than 50% in coordination of care (as documented) at patient's floor/unit and/or counseling patient: 25 - 35 minutes Plan of Care Discussed with: patient Internal Medicine: Result - Labs CBC & Chem 7: 03/09/18 04:46 03/09/18 04:46 Labs: Short CBC 03/09/18 Range/Units 04:46 WBC 11.9 H (4.3-11.1) K/mcL Hgb 9.9 L (11.5-15.4) g/dL Hct 31.9 L (35.3-44.9) % Plt Count 237 (140-400) K/mcL BMP 03/09/18 04:46 Sodium 130 L Potassium 4.1 Chloride 94 L Carbon Dioxide 24 BUN 38 H Creatinine 3.86 H Glucose 126 H Calcium 9.2 - ABG Interpretation ABG results: PT/INR, D-dimer PT 12.1 Seconds (9.4-12.1) 03/02/18 07:55 - Impressions Impressions Tunnelled Catheter Removal 03/08/18 00:00 IMPRESSION: 1. Successful removal of the left chest wall tunneled dialysis catheter as discussed above. D/ / Natanael Willams MD / Natanael Willams MD Interpreting Provider: Natanael Willams MD Consult Discharge Plan - Plan Referrals: Jay Valenzuela DO [Primary Care Provider] - (office will call patient for an appointment when there is sooner available) (1) CRBSI (catheter-related bloodstream infection) Qualifiers: Qualified Code(s): T80.211A - Bloodstream infection due to central venous catheter, initial encounter (2) Sepsis Qualifiers: Sepsis type: methicillin resistant Staphylococcus aureus Qualified Code(s): A41.02 - Sepsis due to Methicillin resistant Staphylococcus aureus (4) Type 2 diabetes mellitus Qualifiers: 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
[2018-03-10] MEDS ORDERED: NIFEdipine XL (24 HR) 30 MG TAB.ER.24 PO SCH ×3 (06:00→09:00)
[2018-03-10] MEDS: *HR* Heparin 5,000 UNIT/ML VIAL SQ SCH ×2 (06:26→16:50)
[2018-03-10 06:39] LABS: Hematocrit 30.4 % (35.3-44.9); Hemoglobin 9.6 g/dL (11.5-15.4); Mean Corpuscular HGB Conc 31.6 g/dL (31.6-35.5); Mean Corpuscular Hemoglobin 27.8 pg (28.0-33.3); Mean Corpuscular Volume 88.1 fL (83.0-100.0); Mean Platelet Volume 9.2 fL (9.4-12.4); Platelet Count 243 K/mcL (140-400); Red Blood Count 3.45 M/mcL (3.82-4.97); Red Cell Distribution Width 15.2 % (11.5-14.5)
[2018-03-10 06:59] LABS: Calcium 9.3 mg/dL (8.6-10.3); Potassium 4.1 mEq/L (3.5-5.1)
--- NOTE | 2018-03-10 09:20 | Nephrology Progress Note ---
Addendum entered and electronically signed by Jacinto Qiu MD 03/10/18 13:13: I examined this patient and discussed the medical decision-making with LUIS Wells. I agree with the documented findings, disposition and treatment plan as described except to the extent set forth below. We will continue to hold dialysis for now. Plan to place a catheter and perform dialysis on . Original Note: Date of Encounter: 03/10/18 Time of Encounter: 09:18 - Assessment and Plan (1) ESRD (end stage renal disease) on dialysis Current Visit: Yes Status: Acute Current regimen is TTS at [facility] Pt's HD line was not functioning well. Blood cultures ordered x 2 sets 03/04/18 (+MRSA). HD line exchanged 03/05/2018. HD completed permacath, removed by IR on 03/09/18. No need for HD today, will plan on making patient NPO at midnight, permacath placement tomorrow and then run HD. Renal diet Renal vitamins Strict I/O Avoid nephrotoxins and renal dose all medications. (2) Acute right hip pain Current Visit: Yes Status: Acute Per primary. (3) Osteoarthritis of right hip Current Visit: Yes Status: Acute X-ray right hip and CT pelvis reflects degenerative osteoarthritis, rule out septic arthritis. Per primary. Qualifiers: Osteoarthritis type: unspecified Qualified Code(s): M16.11 - Unilateral primary osteoarthritis, right hip (4) UTI (urinary tract infection) Current Visit: Yes Status: Acute UA + for UTI. Per primary. Qualifiers: Qualified Code(s): N39.0 - Urinary tract infection, site not specified; R31.9 - Hematuria, unspecified (5) Hyponatremia Current Visit: Yes Status: Resolved NA ,130 no signs and symptoms per patient. (6) CRBSI (catheter-related bloodstream infection) Current Visit: Yes Status: Acute HD completed yesterday. See above. Qualifiers: Qualified Code(s): T80.211A - Bloodstream infection due to central venous catheter, initial encounter Subjective Principal diagnosis: right hip pain Interval history: Pt seen and examined, is sitting up in bed. Feeling well. Denies any chest pain or shortness of breath. Denies nausea, vomiting, or diarrhea. No acute events overnight. Objective - Vital Signs Vital signs: Vital Signs Temp Pulse Resp BP Pulse Ox 03/10/18 07:01 98.1 F 73 19 157/61 96 03/10/18 03:18 99.2 F 71 19 136/63 99 03/09/18 22:34 98.8 F 68 16 149/62 98 03/09/18 22:02 18 98 03/09/18 20:17 98.3 F 67 18 145/57 97 03/09/18 15:54 97.8 F 65 18 147/66 97 03/09/18 11:38 98.5 F 65 18 131/70 97 Intake and Output 03/09/18 03/10/18 03/10/18 23:59 07:59 15:59 Output Total 300 / 300 400 / 400 Balance -300 / -300 -400 / -400 Output: Urine 300 / 300 400 / 400 Other: # Voids 1 Weight 112.4 kg Blood Glucose* 173 118 Patient Weight 03/10/18 23:59 Weight 112.4 kg - General Appearance General appearance: Present: well-developed, well-nourished EENT: Present: ATNC, hearing intact, vision intact Neck: Present: supple Respiratory: Present: clear Cardiology: Present: edema (Trace bilat lower extremity edema noted. ), normal S1, normal S2 Gastrointestinal: Present: normoactive bowel sounds, no tenderness, no guarding Integumentary: Present: no rash, warm and dry Neurologic: Present: alert and oriented x3 Musculoskeletal: Present: no deformities, no erythema Psychiatric: Present: mood/affect appropriate, cooperative - Lab 03/10/18 05:14 03/10/18 05:14 Most recent lab results Calcium 9.3 mg/dL (8.6-10.3) 03/10/18 05:14 Urine Sodium 25.9 mEq/L 03/08/18 16:40 Consult Discharge Plan - Plan Referrals: Jay Valeznuela DO [Primary Care Provider] - (office will call patient for an appointment when there is sooner available)
--- NOTE | 2018-03-10 09:23 | Infectious Disease Progress No ---
Date of Encounter: 03/10/18 Time of Encounter: 09:21 - Assessment and Plan (1) Sepsis Current Visit: Yes Status: Resolved Patient had 2 sepsis criteria on admission. Likely secondary to bacteremia. White blood cell count trending up. Afebrile overnight. Blood cultures drawn 03/02/18 are +2 out of 2 sets for enterococcus faecalis, AmpS. Repeat blood cultures drawn 03/04/18 (one from peripheral and one centrally) are positive 2/2. Additional peripheral cultures drawn 03/08/18 are NGTD x 2 sets. Recommendations: Await blood culture results. Continue to trend WBC. Check differential. Check peripheral smear. Check procalcitonin. Get CXR. Consider CT of the chest, abdomen, and pelvis to evaluate for infectious source of leukocytosis. Discussed the HD catheter plan with nephrology. Dialyzed thursday and HD catheter removed. Plan to give a line holiday and replace line when ready for HD. Continue Vancomycin IV for ease of dosing as an outpatient since it can be given at HD. Pharmacy to dose. Goal trough ~15. Duration of treatment depends on the clinical picture. Monitor renal function and for drug toxicity and dose-adjust antibiotics. Consider wound care to evaluate left buttock ulcer. Qualifiers: Sepsis type: methicillin resistant Staphylococcus aureus Qualified Code(s): A41.02 - Sepsis due to Methicillin resistant Staphylococcus aureus (2) Bacteremia Current Visit: No Status: Acute Causative organism: Enterococcus faecalis, AmpS and MRSA. Source: likely the HD catheter. Blood cultures drawn 03/02/18 are positive 2/2 sets (peripheral) for Enterococcus faecalis. Repeat blood cultures drawn 03/04/18 are positive 2/2 (one central and one peripheral). Repeat blood cultures drawn 03/08/18 are NGTD x 2 sets. HD catheter tip culture is positive for MRSA and E. faecalis. No endocarditis stigmata noted on exam. The patient has one major and one minor Modified Barron's criteria. Currently on Vanc. (3) CLABSI (central line-associated bloodstream infection) Current Visit: Yes Status: Acute Qualifiers: Encounter type: initial encounter Qualified Code(s): T80.211A - Bloodstream infection due to central venous catheter, initial encounter (4) Osteoarthritis of right hip Current Visit: Yes Status: Acute CT of the right hip showed no acute fracture or dislocation with minimal degenerative changes at the right hip joint space. Status post CT-guided arthrocentesis 03/02/18 by IR. 1ml clear fluid aspirated. Unable to do cell count do to volume of the fluid. Gram stain negative, culture is negative. Low index of suspicion of septic arthritis (either seeding or source of bacteremia). Pain management per the primary team. Qualifiers: Osteoarthritis type: unspecified Qualified Code(s): M16.11 - Unilateral primary osteoarthritis, right hip (5) Hyponatremia Current Visit: Yes Status: Resolved Nephrology consulted and following. (6) Constipation Current Visit: No Status: Resolved Resolved. Bowel regimen per the primary team. Qualifiers: Constipation type: unspecified constipation type Qualified Code(s): K59.00 - Constipation, unspecified (7) CAD (coronary artery disease) Current Visit: No Status: Chronic Qualifiers: Coronary Disease-Associated Artery/Lesion type: [place] artery [place] vs. transplanted heart: [place] heart Associated angina: without angina Qualified Code(s): I25.10 - Atherosclerotic heart disease of [place] coronary artery without angina pectoris (8) Obesity Current Visit: No Status: Chronic Qualifiers: Obesity type: unspecified obesity type Obesity classification: adult class 3 (BMI >= 40) Serious obesity comorbidity presence: with serious comorbidity Body mass index: BMI 45.0-49.9 Qualified Code(s): E66.01 - Morbid (severe) obesity due to excess calories; Z68.42 - Body mass index (BMI) 45.0-49.9, adult (9) Diabetes mellitus Current Visit: No Status: Chronic Qualifiers: Diabetes mellitus type: type 2 Diabetes mellitus mcc insulin use: with computer terminal operator use Diabetes mellitus complication status: with kidney complications Diabetes mellitus complication detail: with chronic kidney disease Chronic kidney disease stage: stage 4 (severe) Qualified Code(s): E11.22 - Type 2 diabetes mellitus with diabetic chronic kidney disease; N18.4 - Chronic kidney disease, stage 4 (severe); Z79.4 - terminal supervisor (current) use of insulin (10) COPD (chronic obstructive pulmonary disease) Current Visit: Yes Status: Acute Qualifiers: COPD type: unspecified COPD Qualified Code(s): J44.9 - Chronic obstructive pulmonary disease, unspecified (11) CCF (congestive cardiac failure) Current Visit: Yes Status: Acute Qualifiers: Heart failure type: diastolic Heart failure chronicity: unspecified Qualified Code(s): I50.30 - Unspecified diastolic (congestive) heart failure (12) ESRD (end stage renal disease) on dialysis Current Visit: Yes Status: Chronic Nephrology consulted and following. (13) Back pain Current Visit: Yes Status: Acute Etiology unclear. CT of the L-spine, abdomen, and pelvis negative for acute abnormality. Pain management per the primary team. Qualifiers: Back pain location: low back pain Chronicity: acute Back pain laterality: midline Sciatica presence: unspecified whether sciatica present Qualified Code(s): M54.5 - Low back pain (14) Sacral ulcer Current Visit: Yes Status: Acute Location: Left buttock. Clinically does not appear infected. Consider wound care to evaluate. Qualifiers: Non-pressure ulcer stage: limited to breakdown of skin Qualified Code(s): L98.421 - Non-pressure chronic ulcer of back limited to breakdown of skin - Subjective Interval history: Patient seen and examined. No acute events noted overnight. Denies fevers, chills, or rigors. Denies chest pain, shortness of breath, or cough. Denies nausea, vomiting, diarrhea, or constipation. She denies abdominal pain or urinary complaints. She denies any joint, back, or extremity pain. She denies any oral thrush. She has developed a pressure ulcer to the left buttock. Status post HD line exchange 03/04/18 and HD line removal 03/08/18. Infect Dis PN-Objective Data - Labs CBC & Chem 7: 03/10/18 05:14 03/10/18 05:14 Labs: Laboratory Results - last 24 hr 03/09/18 03/09/18 03/09/18 08:15 11:37 15:48 WBC RBC Hgb Hct MCV MCH MCHC RDW Plt Count MPV Sodium Potassium Chloride Carbon Dioxide BUN Creatinine Est GFR ( Amer) Est GFR (Non-Af Amer) BUN/Creatinine Ratio Glucose POC Glucose 122 H 144 H 213 H Calculated Osmolality Calcium 03/09/18 03/10/18 03/10/18 20:19 05:14 05:14 WBC 12.2 H RBC 3.45 L Hgb 9.6 L Hct 30.4 L MCV 88.1 MCH 27.8 L MCHC 31.6 RDW 15.2 H Plt Count 243 MPV 9.2 L Sodium 129 L Potassium 4.1 Chloride 93 L Carbon Dioxide 24 BUN 60 H Creatinine 5.43 H Est GFR ( Amer) 10 L Est GFR (Non-Af Amer) 8 L BUN/Creatinine Ratio 11 Glucose 111 H POC Glucose 173 H Calculated Osmolality 286 Calcium 9.3 Cultures: Cultures 03/04/18 10:40 Blood Culture - Final Central Venous Catheter Enterococcus faecalis 03/08/18 10:55 Blood Culture - Preliminary Peripheral Venipuncture Culture is incubating and being continuously mo nitored for growth. Final report to follow. 03/08/18 11:06 Blood Culture - Preliminary Peripheral Venipuncture Culture is incubating and being continuously monitored for growth. Final report to follow. 03/04/18 14:00 Catheter Tip Culture - Final Intravenous or Arterial Cath Methicillin Resistant S.aureus Enterococcus faecalis 03/04/18 10:50 Blood Culture - Final Peripheral Venipuncture Enterococcus faecalis 03/02/18 14:47 Body Fluid Culture - Final Synovial Fluid 03/02/18 07:50 Blood Culture - Final Peripheral Venipuncture Enterococcus faecalis 03/02/18 07:55 Blood Culture - Final Peripheral Venipuncture Enterococcus faecalis 03/02/18 07:25 Urine Culture - Final Urine,Clean Catch Serology 03/08/18 03/08/18 03/04/18 Range/Units 16:40 16:40 10:50 Urine Color (Yellow) Urine Clarity (Clear) Urine pH (5.0-8.0) pH Units Ur Specific [place] (1.010-1.025) Urine Protein (Neg-Trace) mg/dL Urine Glucose (UA) (Normal) mg/dL Urine Ketones (Negative) mg/dL Urine Blood (Negative) Urine Nitrite (Negative) Urine Bilirubin (Negative) Urine Urobilinogen (Normal) mg/dL Ur Leukocyte Esterase (Negative) Urine Microscopic RBC (0-3) per hpf Urine Microscopic WBC (0-3) per hpf Ur Squamous Epith Cells (None-Few) per lpf Ur Transition Epith Cell (None-Few) per hpf Ur Renal Epithelial Cell (None-Few) per hpf Urine Bacteria (None-Few) per hpf Hyaline Casts (None-Few) per lpf Urine Yeast (None Seen) per hpf Ur Culture Indicated? (NO) Urine Osmolality 255 L (300-1090) mOsm/kg Urine Sodium 25.9 mEq/L Synovial Source Synovial Color (Straw) Synovial Appearance (Clear-Hazy) Synovial Volume mL Synovial RBC Synovial Tot Nuc Cell Synovial Band Neuts Synovial Basophils Synovial Eosinophils Synovial Seg Neuts % Synovial Lymphocytes % Synovial Monocytes % Synovial Other Cells % A. baumannii (PCR) Not Detected (Not Detect) [place] albicans (PCR) Not Detected (Not Detect) C. glabrata (PCR) Not Detected (Not Detect) C. krusei (PCR) Not Detected (Not Detect) C. parapsilosis (PCR) Not Detected (Not Detect) C. tropicalis (PCR) Not Detected (Not Detect) Enterobacteriac sp PCR Not Detected (Not Detect) E. cloacae complex PCR Not Detected (Not Detect) Enterococcus sp PCR DETECTED A (Not Detect) E. coli (PCR) Not Detected (Not Detect) H. influenzae (PCR) Not Detected (Not Detect) Hep Bs Antigen (Nonreactive) Hep Bs Antibody (10.00 - ) mIU/mL Klebsiella oxytoca PCR Not Detected (Not Detect) Klebsiella pneumoniae Not Detected (Not Detect) List. monocytogenes PCR Not Detected (Not Detect) N. meningitidis (PCR) Not Detected (Not Detect) Proteus species (PCR) Not Detected (Not Detect) Serratia marcescens PCR Not Detected (Not Detect) Staphylococcus sp PCR Not Detected (Not Detect) Staph aureus (PCR) Not Detected (Not Detect) mecA-Methicil Res Gene Not Detected (Not Detect) Streptococcus sp PCR Not Detected (Not Detect) Group A Strep DNA Not Detected (Not Detect) Group B Strep (PCR) Not Detected (Not Detect) Strep pneumoniae (PCR) Not Detected (Not Detect) P. aeruginosa (PCR) Not Detected (Not Detect) Sil/B-Vanco Res Genes Not Detected (Not Detect) KPC (blaKPC) Detect PCR Not Detected (Not Detect) 03/02/18 03/02/18 03/02/18 Range/Units 16:28 14:47 07:55 Urine Color (Yellow) Urine Clarity (Clear) Urine pH (5.0-8.0) pH Units Ur Specific [place] (1.010-1.025) Urine Protein (Neg-Trace) mg/dL Urine Glucose (UA) (Normal) mg/dL Urine Ketones (Negative) mg/dL Urine Blood (Negative) Urine Nitrite (Negative) Urine Bilirubin (Negative) Urine Urobilinogen (Normal) mg/dL Ur Leukocyte Esterase (Negative) Urine Microscopic RBC (0-3) per hpf Urine Microscopic WBC (0-3) per hpf Ur Squamous Epith Cells (None-Few) per lpf Ur Transition Epith Cell (None-Few) per hpf Ur Renal Epithelial Cell (None-Few) per hpf Urine Bacteria (None-Few) per hpf Hyaline Casts (None-Few) per lpf Urine Yeast (None Seen) per hpf Ur Culture Indicated? (NO) Urine Osmolality (300-1090) mOsm/kg Urine Sodium mEq/L Synovial Source right hip Synovial Color Colorless (Straw) Synovial Appearance Clear (Clear-Hazy) Synovial Volume 1.0 mL Synovial RBC TNP Synovial Tot Nuc Cell TNP Synovial Band Neuts TNP Synovial Basophils TNP Synovial Eosinophils TNP Synovial Seg Neuts % TNP Synovial Lymphocytes % TNP Synovial Monocytes % TNP Synovial Other Cells % TNP A. baumannii (PCR) Not Detected (Not Detect) [place] albicans (PCR) Not Detected (Not Detect) C. glabrata (PCR) Not Detected (Not Detect) C. krusei (PCR) Not Detected (Not Detect) C. parapsilosis (PCR) Not Detected (Not Detect) C. tropicalis (PCR) Not Detected (Not Detect) Enterobacteriac sp PCR Not Detected (Not Detect) E. cloacae complex PCR Not Detected (Not Detect) Enterococcus sp PCR DETECTED A (Not Detect) E. coli (PCR) Not Detected (Not Detect) H. influenzae (PCR) Not Detected (Not Detect) Hep Bs Antigen Nonreactive (Nonreactive) Hep Bs Antibody < 3.10 L (10.00 - ) mIU/mL Klebsiella oxytoca PCR Not Detected (Not Detect) Klebsiella pneumoniae Not Detected (Not Detect) List. monocytogenes PCR Not Detected (Not Detect) N. meningitidis (PCR) Not Detected (Not Detect) Proteus species (PCR) Not Detected (Not Detect) Serratia marcescens PCR Not Detected (Not Detect) Staphylococcus sp PCR Not Detected (Not Detect) Staph aureus (PCR) Not Detected (Not Detect) mecA-Methicil Res Gene N/A (Not Detect) Streptococcus sp PCR Not Detected (Not Detect) Group A Strep DNA Not Detected (Not Detect) Group B Strep (PCR) Not Detected (Not Detect) Strep pneumoniae (PCR) Not Detected (Not Detect) P. aeruginosa (PCR) Not Detected (Not Detect) Sil/B-Vanco Res Genes Not Detected (Not Detect) KPC (blaKPC) Detect PCR N/A (Not Detect) 03/02/18 Range/Units 07:25 Urine Color Yellow (Yellow) Urine Clarity Hazy A (Clear) Urine pH 6.0 (5.0-8.0) pH Units Ur Specific [place] 1.009 L (1.010-1.025) Urine Protein >=300 H (Neg-Trace) mg/dL Urine Glucose (UA) 100 H (Normal) mg/dL Urine Ketones Negative (Negative) mg/dL Urine Blood Negative (Negative) Urine Nitrite Negative (Negative) Urine Bilirubin Negative (Negative) Urine Urobilinogen Normal (Normal) mg/dL Ur Leukocyte Esterase Small H (Negative) Urine Microscopic RBC 0-3 (0-3) per hpf Urine Microscopic WBC 30-50 H (0-3) per hpf Ur Squamous Epith Cells Few (None-Few) per lpf Ur Transition Epith Cell Few (None-Few) per hpf Ur Renal Epithelial Cell Few (None-Few) per hpf Urine Bacteria None Seen (None-Few) per hpf Hyaline Casts None Seen (None-Few) per lpf Urine Yeast Few H (None Seen) per hpf Ur Culture Indicated? YES A (NO) Urine Osmolality (300-1090) mOsm/kg Urine Sodium mEq/L Synovial Source Synovial Color (Straw) Synovial Appearance (Clear-Hazy) Synovial Volume mL Synovial RBC Synovial Tot Nuc Cell Synovial Band Neuts Synovial Basophils Synovial Eosinophils Synovial Seg Neuts % Synovial Lymphocytes % Synovial Monocytes % Synovial Other Cells % A. baumannii (PCR) (Not Detect) [place] albicans (PCR) (Not Detect) C. glabrata (PCR) (Not Detect) C. krusei (PCR) (Not Detect) C. parapsilosis (PCR) (Not Detect) C. tropicalis (PCR) (Not Detect) Enterobacteriac sp PCR (Not Detect) E. cloacae complex PCR (Not Detect) Enterococcus sp PCR (Not Detect) E. coli (PCR) (Not Detect) H. influenzae (PCR) (Not Detect) Hep Bs Antigen (Nonreactive) Hep Bs Antibody (10.00 - ) mIU/mL Klebsiella oxytoca PCR (Not Detect) Klebsiella pneumoniae (Not Detect) List. monocytogenes PCR (Not Detect) N. meningitidis (PCR) (Not Detect) Proteus species (PCR) (Not Detect) Serratia marcescens PCR (Not Detect) Staphylococcus sp PCR (Not Detect) Staph aureus (PCR) (Not Detect) mecA-Methicil Res Gene (Not Detect) Streptococcus sp PCR (Not Detect) Group A Strep DNA (Not Detect) Group B Strep (PCR) (Not Detect) Strep pneumoniae (PCR) (Not Detect) P. aeruginosa (PCR) (Not Detect) Sil/B-Vanco Res Genes (Not Detect) KPC (blaKPC) Detect PCR (Not Detect) Exam - Constitutional Vitals: Temp Pulse Resp BP Pulse Ox 98.1 F 73 19 157/61 96 03/10/18 07:01 03/10/18 07:01 03/10/18 07:01 03/10/18 07:01 03/10/18 07:01 General appearance: cooperative, morbidly obese, no acute distress - Head Head exam: Present: atraumatic, normal inspection, normocephalic - Eye Eye exam: Present: EOMI, normal appearance, PERRL Pupils: Present: normal accommodation Additional comments: No subconjunctival hemorrhage noted. - ENT ENT exam: Present: mucous membranes moist - Neck Neck exam: Present: normal inspection - Respiratory Respiratory exam: Present: CTAB. Absent: rales, respiratory distress, rhonchi, wheezes - Cardiovascular Cardiovascular exam: Present: RRR, +S1, +S2 - GI/Abdominal GI/Abdominal exam: Present: distended (obese), normal bowel sounds, soft. Absent: tenderness - Extremities Exam Extremities exam: Present: pedal edema (Trace RLE). Absent: joint swelling, normal inspection (Venous stasis dermatitis noted to the RLE.), tenderness - Back Exam Additional comments: Stage II ulcer noted to the left buttock. No surrounding erythema, warmth, or drainage noted. - Neurological Exam Neurological exam: Present: alert, oriented X3, no focal deficits - Psychiatric Psychiatric exam: Present: normal affect, normal mood - Skin Skin exam: Present: dry, intact, normal color, warm Additional comments: No endocarditis stigmata noted. Consult Discharge Plan - Plan Referrals: Jay Valenzuela DO [Primary Care Provider] - (office will call patient for an appointment when there is available time sooner) - Attending Attestation I examined this patient and my medical decision-making was reviewed with the Resident Physician. I agree with the documented findings, disposition and treatment plan as described except to the extent set forth below.
[2018-03-10] MEDS: Furosemide 20 MG TABLET PO SCH (09:34)
[2018-03-10] MEDS: hydrALAZINE 25 MG TABLET PO SCH ×3 (09:35→21:42)
[2018-03-10] MEDS: cloNIDine HCl 0.1 MG TABLET PO SCH ×3 (09:35→21:42)
[2018-03-10] MEDS: ALPRAZolam 1 MG TABLET PO SCH ×2 (09:35→21:53)
[2018-03-10] MEDS: Ranolazine 500 MG TAB.ER.12H PO SCH ×2 (09:35→21:42)
[2018-03-10] MEDS: metOLazone 5 MG TABLET PO SCH (09:35)
[2018-03-10] MEDS: Aspirin Enteric Coated 81 MG Tablet PO SCH (09:35)
[2018-03-10] MEDS: NIFEdipine XL (24 HR) 30 MG TAB.ER.24 PO SCH (09:36)
[2018-03-10] MEDS: Nystatin POWDER 30 GM BOTTLE TP SCH ×2 (09:36→21:50)
[2018-03-10] MEDS: Fenofibrate 54 MG TABLET PO SCH (09:36)
[2018-03-10] MEDS: Insulin LISPRO 300 UNITS/3 ML VIAL SQ SCH ×4 (09:36→21:49)
[2018-03-10] MEDS ORDERED: Vancomycin 250 MG in 0.9 % Sodium Chloride Mini Bag 100 ML IVPB ONE (09:44)
[2018-03-10 09:46] LABS: Basophils # 0.1 K/mcL (0.0-0.2); Basophils % 0.7 %; Eosinophils # 0.5 K/mcL (0.0-0.6); Eosinophils % 3.6 %; Immature Granulocytes % 2.8 % (0-4); Lymphocytes % 16.2 %; Monocytes # 1.2 K/mcL (0.0-1.3); Neutrophils # 8.2 K/mcL (1.6-8.9); Segmented Neutrophils % 66.7 %
[2018-03-10] MEDS: Tiotropium 18 MCG inhalation IH SCH (11:02)
[2018-03-10] MEDS: Budesonide/Formoterol 160/4.5 1 PUFF INH IH SCH ×2 (11:02→20:24)
--- NOTE | 2018-03-10 12:11 | Internal Med Progress Note ---
Hospitalist Progress Note - Encounter Date of Encounter: 03/10/18 Time of Encounter: 12:09 - Subjective Interval History: I have seen and evaluated patient bedside. Patient voices no complaints, reports that she has a bedsore and her daughter takes care of it. denies chest pain, fever/chills, nausea or vomiting. - Exam Vitals: Temp Pulse Resp BP Pulse Ox 98.4 F 61 18 147/81 96 03/10/18 11:20 03/10/18 11:20 03/10/18 11:20 03/10/18 11:20 03/10/18 11:20 Exam: Vitals: Reviewed. General: Alert and oriented x4. In no acute distress. Skin: dry skin with desquamation on the upper back. HEENT: EOM, pupils equal, round and reactive. Cardiovascular: RRR, normal S1 & S2, no rubs, murmurs or gallops. Lungs: CTA b/l, no wheezes or crackles. Abdomen: Obese, Soft, non-tender, no rigidity. Extremities: No deformity, no edema or tenderness, no joint swelling or clubbing. Neurological: Normal cognition and motor skills. Rest of the physical exam is non contributory - Assessment and Plan (1) Sepsis Current Visit: Yes Status: Resolved Assessment and Plan: first blood culture grew: Enterococcus Faecalis. Catheter tip culture grew: MRSA. repeated b/C: no growth. Patient on vancomycin as per ID recommendation. (2) CRBSI (catheter-related bloodstream infection) Current Visit: Yes Status: Resolved Assessment and Plan: Plan of care as above. (3) Degenerative joint disease of right hip Current Visit: Yes Status: Chronic Assessment and Plan: Pain controlled with [place] 5-325mg/PO Q6HR PRN. (4) Type 2 diabetes mellitus Current Visit: Yes Status: Chronic Assessment and Plan: Blood sugar is well controlled. Continue renal and carbs controlled diet. Lispro low-dose sliding scale before meals (5) Hypertensive renal disease with renal failure Current Visit: Yes Status: Chronic Assessment and Plan: Blood pressure is controlled. Patient is on carvedilol, clonidine, nifedipine, and hydralazine. We will continue to monitor and adjust medication accordingly. (6) COPD (chronic obstructive pulmonary disease) Current Visit: Yes Status: Chronic Assessment and Plan: Not on acute exacerbation. Chest is clear to auscultation. Continue bronchodilators when necessary area on Symbicort. (7) Hyperlipidemia Current Visit: Yes Status: Chronic Assessment and Plan: Continue rosuvastatin 40 mg by mouth at bedtime, and fenofibrate. (8) CAD (coronary artery disease) Current Visit: Yes Status: Chronic Assessment and Plan: Patient is on aspirin 81 mg by mouth daily. (9) ESRD (end stage renal disease) on dialysis Current Visit: Yes Status: Chronic Assessment and Plan: Patient is scheduled for hemodialysis catheter insertion tomorrow morning. Renal replacement therapy as per nephrology team. Patient is on furosemide and metolazone. Continue sevelamer 800 mg by mouth 3 times a day with meals. (10) Hyponatremia Current Visit: No Status: Acute Assessment and Plan: Unclear etiology. Fluid restriction to 1.5 L a day. (11) Obesity Current Visit: No Status: Chronic (12) Sacral decubitus ulcer Current Visit: Yes Status: Chronic Assessment and Plan: Wound care has been consulted. DVT Prophylaxis: On heparin subcutaneous. - Summary of Assessment and Plan Summary of Assessment and Plan: Patient to remain in the hospital due to resolving catheter associated infection. Scheduled for hemodialysis catheter placement tomorrow morning. Potential discharge in 1-2 days. - Time Spent with Patient Total time spent is greater than 50% in coordination of care (as documented) at patient's floor/unit and/or counseling patient: Greater than 35 minutes (50) Plan of Care Discussed with: patient (and the nurse.) Internal Medicine: Result - Labs CBC & Chem 7: 03/10/18 05:14 03/10/18 05:14 Labs: Short CBC 03/10/18 Range/Units 05:14 WBC 12.2 H (4.3-11.1) K/mcL Hgb 9.6 L (11.5-15.4) g/dL Hct 30.4 L (35.3-44.9) % Plt Count 243 (140-400) K/mcL Neutrophils # 8.2 (1.6-8.9) K/mcL BMP 03/10/18 05:14 Sodium 129 L Potassium 4.1 Chloride 93 L Carbon Dioxide 24 BUN 60 H Creatinine 5.43 H Glucose 111 H Calcium 9.3 - ABG Interpretation ABG results: PT/INR, D-dimer PT 12.1 Seconds (9.4-12.1) 03/02/18 07:55 Consult Discharge Plan - Plan Referrals: Jay Valenzuela DO [Primary Care Provider] - (office will call patient for an appointment when there is available time sooner) (1) Sepsis Qualifiers: Sepsis type: methicillin resistant Staphylococcus aureus Qualified Code(s): A41.02 - Sepsis due to Methicillin resistant Staphylococcus aureus (2) CRBSI (catheter-related bloodstream infection) Qualifiers: Qualified Code(s): T80.211A - Bloodstream infection due to central venous catheter, initial encounter (3) Degenerative joint disease of right hip Qualifiers: Osteoarthritis type: unspecified Qualified Code(s): M16.11 - Unilateral primary osteoarthritis, right hip (4) Type 2 diabetes mellitus Qualifiers: Diabetes mellitus detention insulin use: with home care and home health aides teacher use Diabetes mellitus complication status: with kidney complications Diabetes mellitus complication detail: with chronic kidney disease Chronic kidney disease stage: on chronic dialysis Qualified Code(s): E11.22 - Type 2 diabetes mellitus with diabetic chronic kidney disease; N18.6 - End stage renal disease; Z79.4 - jail (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 (7) Hyperlipidemia Qualifiers: Hyperlipidemia type: unspecified Qualified Code(s): E78.5 - Hyperlipidemia, unspecified (8) CAD (coronary artery disease) Qualifiers: Coronary Disease-Associated Artery/Lesion type: unspecified vessel or lesion type [place] vs. transplanted heart: unspecified whether [place] or transplanted heart Associated angina: angina presence unspecified Qualified Code(s): I25.10 - Atherosclerotic heart disease of [place] coronary artery without angina pectoris (11) Obesity Qualifiers: Obesity type: unspecified obesity type Obesity classification: adult class 3 (BMI >= 40) Serious obesity comorbidity presence: with serious comorbidity Body mass index: BMI 45.0-49.9 Qualified Code(s): E66.01 - Morbid (severe) obesity due to excess calories; Z68.42 - Body mass index (BMI) 45.0-49.9, adult (12) Sacral decubitus ulcer Qualifiers: Pressure injury stage: unspecified pressure injury stage Qualified Code(s): L89.159 - Pressure ulcer of sacral region, unspecified stage
[2018-03-10] MEDS: Famotidine 20 MG TABLET PO SCH (21:42)
[2018-03-10] MEDS: traZODone 50 MG TABLET PO SCH (21:42)
[2018-03-10] MEDS: risperiDONE 1 MG TABLET PO SCH (21:42)
[2018-03-11] MEDS: *HR* Heparin 5,000 UNIT/ML VIAL SQ SCH ×3 (05:05→21:19)
[2018-03-11] MEDS: Tiotropium 18 MCG inhalation IH SCH (07:56)
[2018-03-11] MEDS: Budesonide/Formoterol 160/4.5 1 PUFF INH IH SCH ×2 (07:56→20:27)
[2018-03-11] MEDS: hydrALAZINE 25 MG TABLET PO SCH ×3 (08:26→23:06)
[2018-03-11] MEDS: Insulin LISPRO 300 UNITS/3 ML VIAL SQ SCH ×4 (08:26→23:01)
[2018-03-11] MEDS: cloNIDine HCl 0.1 MG TABLET PO SCH ×3 (08:27→23:08)
[2018-03-11] MEDS: Fenofibrate 54 MG TABLET PO SCH (08:27)
[2018-03-11] MEDS: metOLazone 5 MG TABLET PO SCH (08:27)
[2018-03-11] MEDS: Furosemide 20 MG TABLET PO SCH (08:27)
[2018-03-11] MEDS: ALPRAZolam 1 MG TABLET PO SCH ×2 (08:27→22:59)
[2018-03-11] MEDS: Ranolazine 500 MG TAB.ER.12H PO SCH ×2 (08:27→23:06)
[2018-03-11] MEDS: Aspirin Enteric Coated 81 MG Tablet PO SCH (08:28)
[2018-03-11] MEDS: NIFEdipine XL (24 HR) 30 MG TAB.ER.24 PO SCH (08:28)
[2018-03-11] MEDS: Nystatin POWDER 30 GM BOTTLE TP SCH ×2 (08:28→23:07)
--- NOTE | 2018-03-11 08:28 | Nephrology Progress Note ---
Addendum entered and electronically signed by Jacinto Qiu MD 03/11/18 12:43: I examined this patient and discussed the medical decision-making with LUIS Rey. I agree with the documented findings, disposition and treatment plan as described except to the extent set forth below. Plan for dialysis today. Patient will likely need a temporary catheter unless otherwise suggested by infectious disease. Addendum entered and electronically signed by Krissy Gilbert CNP 03/11/18 09:24: Notified that since blood cultures are not finalized, IR will note place a permacath but instead will place a temp line today. Original Note: Date of Encounter: 03/11/18 Time of Encounter: 08:24 - Assessment and Plan (1) Hyponatremia Current Visit: Yes Status: Resolved NA 129, down from 130 yesterday Review of [facility] notes show patient normally runs 133 but has been as low as 127 On a 138 mEq/L Na+ bath in outpatient dialysis unit Currently asymptomatic (2) ESRD (end stage renal disease) on dialysis Current Visit: Yes Status: Chronic On a line holiday; to have new permacath placed today followed by HD Patient is a [facility] TTS patient Continue renal diet when diet resumed (3) Osteoarthritis of right hip Current Visit: Yes Status: Acute per primary team Qualifiers: Osteoarthritis type: unspecified Qualified Code(s): M16.11 - Unilateral primary osteoarthritis, right hip (4) CRBSI (catheter-related bloodstream infection) Current Visit: Yes Status: Resolved Permacath being placed today following a line holiday Qualifiers: Qualified Code(s): T80.211A - Bloodstream infection due to central venous catheter, initial encounter Subjective Principal diagnosis: right hip pain Interval history: Patient seen and examined. States she is doing ok this morning. Objective - Vital Signs Vital signs: Vital Signs Temp Pulse Resp BP Pulse Ox 03/11/18 07:57 16 94 03/11/18 07:05 98.8 F 67 16 190/73 95 03/11/18 04:10 98.6 F 66 16 164/54 93 03/11/18 01:38 98.6 F 70 16 143/64 94 03/10/18 20:24 16 93 03/10/18 20:16 98.9 F 73 16 159/71 93 03/10/18 15:51 98.1 F 71 19 169/58 92 03/10/18 11:20 98.4 F 61 18 147/81 96 03/10/18 11:05 18 95 Intake and Output 03/10/18 03/11/18 03/11/18 23:59 07:59 15:59 Output Total 200 / 200 Balance -200 / -200 Output: Urine 200 / 200 Other: # Voids 1 1 Blood Glucose* 231 110 - General Appearance General appearance: Present: obese EENT: Present: ATNC, mucous membranes moist, hearing intact, vision intact Neck: Present: supple Respiratory: Present: clear Cardiology: Present: edema (mild BLL), normal S1, normal S2 Gastrointestinal: Present: no tenderness, no guarding Integumentary: Present: warm and dry Neurologic: Present: alert and oriented x3 Psychiatric: Present: mood/affect appropriate, cooperative - Lab 03/10/18 05:14 03/10/18 05:14 Most recent lab results Calcium 9.3 mg/dL (8.6-10.3) 03/10/18 05:14 Urine Sodium 25.9 mEq/L 03/08/18 16:40 Consult Discharge Plan - Plan Referrals: Jay Valenzuela DO [Primary Care Provider] - (office will call patient for an appointment when there is available time sooner)
[2018-03-11 08:45] LABS: Hematocrit 29.7 % (35.3-44.9); Hemoglobin 9.6 g/dL (11.5-15.4); Mean Corpuscular HGB Conc 32.3 g/dL (31.6-35.5); Mean Corpuscular Hemoglobin 27.7 pg (28.0-33.3); Mean Corpuscular Volume 85.6 fL (83.0-100.0); Mean Platelet Volume 9.5 fL (9.4-12.4); Platelet Count 238 K/mcL (140-400); Red Blood Count 3.47 M/mcL (3.82-4.97); Red Cell Distribution Width 15.2 % (11.5-14.5)
[2018-03-11 09:05] LABS: Calcium 9.4 mg/dL (8.6-10.3); Potassium 3.7 mEq/L (3.5-5.1)
[2018-03-11] MEDS ORDERED: 0.9 % Sodium Chloride 250 ML IVC PRN (09:13)
[2018-03-11] MEDS ORDERED: *HR* Heparin 10,000 UNIT/10 ML VIAL IV PRN (09:13)
[2018-03-11] MEDS ORDERED: 0.9 % Sodium Chloride 1,000 ML PRIME SCH (09:15)
--- NOTE | 2018-03-11 10:13 | Infectious Disease Progress No ---
Date of Encounter: 03/11/18 Time of Encounter: 10:10 - Assessment and Plan (1) Sepsis Current Visit: Yes Status: Resolved Patient had 2 sepsis criteria on admission. Likely secondary to bacteremia. White blood cell count normal this morning. Afebrile overnight. Blood cultures drawn 03/02/18 are +2 out of 2 sets for enterococcus faecalis, AmpS. Repeat blood cultures drawn 03/04/18 (one from peripheral and one centrally) are positive 2/2. Additional peripheral cultures drawn 03/08/18 are NGTD x 2 sets. Recommendations: Await blood culture results. Continue to trend WBC. Check procalcitonin. --> pending. Discussed the HD catheter plan with nephrology. Dialyzed thursday and HD catheter removed. Plan to give a line holiday and replace line when ready for HD. Likely later today. Continue Vancomycin IV for ease of dosing as an outpatient since it can be given at HD. Pharmacy to dose. Goal trough ~15. Duration of treatment depends on the clinical picture, likely a total of 2 weeks from site of negative blood cultures. Treat through 03/21/18. Monitor renal function and for drug toxicity and dose-adjust antibiotics. Qualifiers: Sepsis type: methicillin resistant Staphylococcus aureus Qualified Code(s): A41.02 - Sepsis due to Methicillin resistant Staphylococcus aureus (2) Bacteremia Current Visit: No Status: Acute Causative organism: Enterococcus faecalis, AmpS and MRSA. Source: likely the HD catheter. Blood cultures drawn 03/02/18 are positive 2/2 sets (peripheral) for Enterococcus faecalis. Repeat blood cultures drawn 03/04/18 are positive 2/2 (one central and one peripheral). Repeat blood cultures drawn 03/08/18 are NGTD x 2 sets. HD catheter tip culture is positive for MRSA and E. faecalis. No endocarditis stigmata noted on exam. The patient has one major and one minor Modified Barron's criteria. Currently on Vanc. (3) CLABSI (central line-associated bloodstream infection) Current Visit: Yes Status: Acute Qualifiers: Encounter type: initial encounter Qualified Code(s): T80.211A - Bloodstream infection due to central venous catheter, initial encounter (4) Osteoarthritis of right hip Current Visit: Yes Status: Acute CT of the right hip showed no acute fracture or dislocation with minimal degenerative changes at the right hip joint space. Status post CT-guided arthrocentesis 03/02/18 by IR. 1ml clear fluid aspirated. Unable to do cell count do to volume of the fluid. Gram stain negative, culture is negative. Low index of suspicion of septic arthritis (either seeding or source of bacteremia). Pain management per the primary team. Qualifiers: Osteoarthritis type: unspecified Qualified Code(s): M16.11 - Unilateral primary osteoarthritis, right hip (5) Hyponatremia Current Visit: Yes Status: Resolved Nephrology consulted and following. (6) Constipation Current Visit: No Status: Resolved No bowel movement documented since 03/07/18. Bowel regimen per the primary team. Qualifiers: Constipation type: unspecified constipation type Qualified Code(s): K59.00 - Constipation, unspecified (7) CAD (coronary artery disease) Current Visit: No Status: Chronic Qualifiers: Coronary Disease-Associated Artery/Lesion type: [place] artery [place] vs. transplanted heart: [place] heart Associated angina: without angina Qualified Code(s): I25.10 - Atherosclerotic heart disease of [place] coronary artery without angina pectoris (8) Obesity Current Visit: No Status: Chronic Qualifiers: Obesity type: unspecified obesity type Obesity classification: adult class 3 (BMI >= 40) Serious obesity comorbidity presence: with serious comorbidity Body mass index: BMI 45.0-49.9 Qualified Code(s): E66.01 - Morbid (severe) obesity due to excess calories; Z68.42 - Body mass index (BMI) 45.0-49.9, adult (9) Diabetes mellitus Current Visit: No Status: Chronic Qualifiers: Diabetes mellitus type: type 2 Diabetes mellitus halfway insulin use: with halfway use Diabetes mellitus complication status: with kidney complications Diabetes mellitus complication detail: with chronic kidney disease Chronic kidney disease stage: stage 4 (severe) Qualified Code(s): E11.22 - Type 2 diabetes mellitus with diabetic chronic kidney disease; N18.4 - Chronic kidney disease, stage 4 (severe); Z79.4 - FDC (current) use of insulin (10) COPD (chronic obstructive pulmonary disease) Current Visit: Yes Status: Acute Qualifiers: COPD type: unspecified COPD Qualified Code(s): J44.9 - Chronic obstructive pulmonary disease, unspecified (11) CCF (congestive cardiac failure) Current Visit: Yes Status: Acute Qualifiers: Heart failure type: diastolic Heart failure chronicity: unspecified Qualified Code(s): I50.30 - Unspecified diastolic (congestive) heart failure (12) ESRD (end stage renal disease) on dialysis Current Visit: Yes Status: Chronic Nephrology consulted and following. (13) Back pain Current Visit: Yes Status: Resolved Etiology unclear. CT of the L-spine, abdomen, and pelvis negative for acute abnormality. Pain management per the primary team. Qualifiers: Back pain location: low back pain Chronicity: acute Back pain laterality: midline Sciatica presence: unspecified whether sciatica present Qualified Code(s): M54.5 - Low back pain (14) Sacral ulcer Current Visit: Yes Status: Acute Location: Left buttock. Clinically does not appear infected. Wound care consulted and following. Qualifiers: Non-pressure ulcer stage: limited to breakdown of skin Qualified Code(s): L98.421 - Non-pressure chronic ulcer of back limited to breakdown of skin - Subjective Interval history: Patient seen and examined. No acute events noted overnight. Denies fevers, chills, or rigors. Denies chest pain, shortness of breath, or cough. Denies nausea, vomiting, diarrhea, or constipation. States she is unsure when she last had a bowel movement. She denies abdominal pain or urinary complaints. She denies any joint, back, or extremity pain. She denies any oral thrush. She has developed a pressure ulcer to the left buttock. Status post HD line exchange 03/04/18 and HD line removal 03/08/18. Per nephrology, planning to reinsert permacath and resume hemodialysis later today. Infect Dis PN-Objective Data - Labs CBC & Chem 7: 03/11/18 08:12 03/11/18 08:12 Labs: Laboratory Results - last 24 hr 03/10/18 03/10/18 03/10/18 05:14 06:58 11:17 WBC RBC Hgb Hct MCV MCH MCHC RDW Plt Count MPV Smear Path Review See Below Sodium Potassium Chloride Carbon Dioxide BUN Creatinine Est GFR ( Amer) Est GFR (Non-Af Amer) BUN/Creatinine Ratio Glucose POC Glucose 118 H 155 H Calculated Osmolality Calcium Random Vancomycin 03/10/18 03/11/18 03/11/18 15:48 08:12 08:12 WBC 10.9 RBC 3.47 L Hgb 9.6 L Hct 29.7 L MCV 85.6 MCH 27.7 L MCHC 32.3 RDW 15.2 H Plt Count 238 MPV 9.5 Smear Path Review Sodium 129 L Potassium 3.7 Chloride 92 L Carbon Dioxide 26 BUN 80 H Creatinine 5.95 H Est GFR ( Amer) 9 L Est GFR (Non-Af Amer) 7 L BUN/Creatinine Ratio 13 Glucose 114 H POC Glucose 190 H Calculated Osmolality 293 Calcium 9.4 Random Vancomycin 03/11/18 08:12 WBC RBC Hgb Hct MCV MCH MCHC RDW Plt Count MPV Smear Path Review Sodium Potassium Chloride Carbon Dioxide BUN Creatinine Est GFR ( Amer) Est GFR (Non-Af Amer) BUN/Creatinine Ratio Glucose POC Glucose Calculated Osmolality Calcium Random Vancomycin 17 Cultures: Cultures 03/04/18 10:40 Blood Culture - Final Central Venous Catheter Enterococcus faecalis 03/08/18 10:55 Blood Culture - Preliminary Peripheral Venipuncture Culture is incubating and being continuously monitored for growth. Final report to follow. 03/08/18 11:06 Blood Culture - Preliminary Peripheral Venipuncture Culture is incubating and being continuously monitored for growth. Final report to follow. 03/04/18 14:00 Catheter Tip Culture - Final Intravenous or Arterial Cath Methicillin Resistant S.aureus Enterococcus faecalis 03/04/18 10:50 Blood Culture - Final Peripheral Venipuncture Enterococcus faecalis 03/02/18 14:47 Body Fluid Culture - Final Synovial Fluid 03/02/18 07:50 Blood Culture - Final Peripheral Venipuncture Enterococcus faecalis 03/02/18 07:55 Blood Culture - Final Peripheral Venipuncture Enterococcus faecalis 03/02/18 07:25 Urine Culture - Final Urine,Clean Catch Serology 03/08/18 03/08/18 03/04/18 Range/Units 16:40 16:40 10:50 Urine Color (Yellow) Urine Clarity (Clear) Urine pH (5.0-8.0) pH Units Ur Specific [place] (1.010-1.025) Urine Protein (Neg-Trace) mg/dL Urine Glucose (UA) (Normal) mg/dL Urine Ketones (Negative) mg/dL Urine Blood (Negative) Urine Nitrite (Negative) Urine Bilirubin (Negative) Urine Urobilinogen (Normal) mg/dL Ur Leukocyte Esterase (Negative) Urine Microscopic RBC (0-3) per hpf Urine Microscopic WBC (0-3) per hpf Ur Squamous Epith Cells (None-Few) per lpf Ur Transition Epith Cell (None-Few) per hpf Ur Renal Epithelial Cell (None-Few) per hpf Urine Bacteria (None-Few) per hpf Hyaline Casts (None-Few) per lpf Urine Yeast (None Seen) per hpf Ur Culture Indicated? (NO) Urine Osmolality 255 L (300-1090) mOsm/kg Urine Sodium 25.9 mEq/L Synovial Source Synovial Color (Straw) Synovial Appearance (Clear-Hazy) Synovial Volume mL Synovial RBC Synovial Tot Nuc Cell Synovial Band Neuts Synovial Basophils Synovial Eosinophils Synovial Seg Neuts % Synovial Lymphocytes % Synovial Monocytes % Synovial Other Cells % A. baumannii (PCR) Not Detected (Not Detect) Kerry albicans (PCR) Not Detected (Not Detect) C. glabrata (PCR) Not Detected (Not Detect) C. krusei (PCR) Not Detected (Not Detect) C. parapsilosis (PCR) Not Detected (Not Detect) C. tropicalis (PCR) Not Detected (Not Detect) Enterobacteriac sp PCR Not Detected (Not Detect) E. cloacae complex PCR Not Detected (Not Detect) Enterococcus sp PCR DETECTED A (Not Detect) E. coli (PCR) Not Detected (Not Detect) H. influenzae (PCR) Not Detected (Not Detect) Hep Bs Antigen (Nonreactive) Hep Bs Antibody (10.00 - ) mIU/mL Klebsiella oxytoca PCR Not Detected (Not Detect) Klebsiella pneumoniae Not Detected (Not Detect) List. monocytogenes PCR Not Detected (Not Detect) N. meningitidis (PCR) Not Detected (Not Detect) Proteus species (PCR) Not Detected (Not Detect) Serratia marcescens PCR Not Detected (Not Detect) Staphylococcus sp PCR Not Detected (Not Detect) Staph aureus (PCR) Not Detected (Not Detect) mecA-Methicil Res Gene Not Detected (Not Detect) Streptococcus sp PCR Not Detected (Not Detect) Group A Strep DNA Not Detected (Not Detect) Group B Strep (PCR) Not Detected (Not Detect) Strep pneumoniae (PCR) Not Detected (Not Detect) P. aeruginosa (PCR) Not Detected (Not Detect) Sil/B-Vanco Res Genes Not Detected (Not Detect) KPC (blaKPC) Detect PCR Not Detected (Not Detect) 03/02/18 03/02/18 03/02/18 Range/Units 16:28 14:47 07:55 Urine Color (Yellow) Urine Clarity (Clear) Urine pH (5.0-8.0) pH Units Ur Specific [place] (1.010-1.025) Urine Protein (Neg-Trace) mg/dL Urine Glucose (UA) (Normal) mg/dL Urine Ketones (Negative) mg/dL Urine Blood (Negative) Urine Nitrite (Negative) Urine Bilirubin (Negative) Urine Urobilinogen (Normal) mg/dL Ur Leukocyte Esterase (Negative) Urine Microscopic RBC (0-3) per hpf Urine Microscopic WBC (0-3) per hpf Ur Squamous Epith Cells (None-Few) per lpf Ur Transition Epith Cell (None-Few) per hpf Ur Renal Epithelial Cell (None-Few) per hpf Urine Bacteria (None-Few) per hpf Hyaline Casts (None-Few) per lpf Urine Yeast (None Seen) per hpf Ur Culture Indicated? (NO) Urine Osmolality (300-1090) mOsm/kg Urine Sodium mEq/L Synovial Source right hip Synovial Color Colorless (Straw) Synovial Appearance Clear (Clear-Hazy) Synovial Volume 1.0 mL Synovial RBC TNP Synovial Tot Nuc Cell TNP Synovial Band Neuts TNP Synovial Basophils TNP Synovial Eosinophils TNP Synovial Seg Neuts % TNP Synovial Lymphocytes % TNP Synovial Monocytes % TNP Synovial Other Cells % TNP A. baumannii (PCR) Not Detected (Not Detect) [place] albicans (PCR) Not Detected (Not Detect) C. glabrata (PCR) Not Detected (Not Detect) C. krusei (PCR) Not Detected (Not Detect) C. parapsilosis (PCR) Not Detected (Not Detect) C. tropicalis (PCR) Not Detected (Not Detect) Enterobacteriac sp PCR Not Detected (Not Detect) E. cloacae complex PCR Not Detected (Not Detect) Enterococcus sp PCR DETECTED A (Not Detect) E. coli (PCR) Not Detected (Not Detect) H. influenzae (PCR) Not Detected (Not Detect) Hep Bs Antigen Nonreactive (Nonreactive) Hep Bs Antibody < 3.10 L (10.00 - ) mIU/mL Klebsiella oxytoca PCR Not Detected (Not Detect) Klebsiella pneumoniae Not Detected (Not Detect) List. monocytogenes PCR Not Detected (Not Detect) N. meningitidis (PCR) Not Detected (Not Detect) Proteus species (PCR) Not Detected (Not Detect) Serratia marcescens PCR Not Detected (Not Detect) Staphylococcus sp PCR Not Detected (Not Detect) Staph aureus (PCR) Not Detected (Not Detect) mecA-Methicil Res Gene N/A (Not Detect) Streptococcus sp PCR Not Detected (Not Detect) Group A Strep DNA Not Detected (Not Detect) Group B Strep (PCR) Not Detected (Not Detect) Strep pneumoniae (PCR) Not Detected (Not Detect) P. aeruginosa (PCR) Not Detected (Not Detect) Sil/B-Vanco Res Genes Not Detected (Not Detect) KPC (blaKPC) Detect PCR N/A (Not Detect) 03/02/18 Range/Units 07:25 Urine Color Yellow (Yellow) Urine Clarity Hazy A (Clear) Urine pH 6.0 (5.0-8.0) pH Units Ur Specific [place] 1.009 L (1.010-1.025) Urine Protein >=300 H (Neg-Trace) mg/dL Urine Glucose (UA) 100 H (Normal) mg/dL Urine Ketones Negative (Negative) mg/dL Urine Blood Negative (Negative) Urine Nitrite Negative (Negative) Urine Bilirubin Negative (Negative) Urine Urobilinogen Normal (Normal) mg/dL Ur Leukocyte Esterase Small H (Negative) Urine Microscopic RBC 0-3 (0-3) per hpf Urine Microscopic WBC 30-50 H (0-3) per hpf Ur Squamous Epith Cells Few (None-Few) per lpf Ur Transition Epith Cell Few (None-Few) per hpf Ur Renal Epithelial Cell Few (None-Few) per hpf Urine Bacteria None Seen (None-Few) per hpf Hyaline Casts None Seen (None-Few) per lpf Urine Yeast Few H (None Seen) per hpf Ur Culture Indicated? YES A (NO) Urine Osmolality (300-1090) mOsm/kg Urine Sodium mEq/L Synovial Source Synovial Color (Straw) Synovial Appearance (Clear-Hazy) Synovial Volume mL Synovial RBC Synovial Tot Nuc Cell Synovial Band Neuts Synovial Basophils Synovial Eosinophils Synovial Seg Neuts % Synovial Lymphocytes % Synovial Monocytes % Synovial Other Cells % A. baumannii (PCR) (Not Detect) [place] albicans (PCR) (Not Detect) C. glabrata (PCR) (Not Detect) C. krusei (PCR) (Not Detect) C. parapsilosis (PCR) (Not Detect) C. tropicalis (PCR) (Not Detect) Enterobacteriac sp PCR (Not Detect) E. cloacae complex PCR (Not Detect) Enterococcus sp PCR (Not Detect) E. coli (PCR) (Not Detect) H. influenzae (PCR) (Not Detect) Hep Bs Antigen (Nonreactive) Hep Bs Antibody (10.00 - ) mIU/mL Klebsiella oxytoca PCR (Not Detect) Klebsiella pneumoniae (Not Detect) List. monocytogenes PCR (Not Detect) N. meningitidis (PCR) (Not Detect) Proteus species (PCR) (Not Detect) Serratia marcescens PCR (Not Detect) Staphylococcus sp PCR (Not Detect) Staph aureus (PCR) (Not Detect) mecA-Methicil Res Gene (Not Detect) Streptococcus sp PCR (Not Detect) Group A Strep DNA (Not Detect) Group B Strep (PCR) (Not Detect) Strep pneumoniae (PCR) (Not Detect) P. aeruginosa (PCR) (Not Detect) Sil/B-Vanco Res Genes (Not Detect) KPC (blaKPC) Detect PCR (Not Detect) - Impressions Impressions Chest X-Ray 03/10/18 12:07 IMPRESSION: Linear opacity in the right lung base likely representing atelectasis. D/ / Krishna Lawson MD / Krishna Lawson MD Interpreting Provider: Krishna Lawson MD Exam - Constitutional Vitals: Temp Pulse Resp BP Pulse Ox 98.8 F 67 16 190/73 94 03/11/18 07:05 03/11/18 07:05 03/11/18 07:57 03/11/18 07:05 03/11/18 07:57 General appearance: cooperative, no acute distress, obese - Head Head exam: Present: atraumatic, normal inspection, normocephalic - Eye Eye exam: Present: EOMI, normal appearance, PERRL Pupils: Present: normal accommodation Additional comments: No subconjunctival hemorrhage noted. - ENT ENT exam: Present: mucous membranes moist - Neck Neck exam: Present: normal inspection - Respiratory Respiratory exam: Present: CTAB. Absent: rales, respiratory distress, rhonchi, wheezes - Cardiovascular Cardiovascular exam: Present: RRR, +S1, +S2 - GI/Abdominal GI/Abdominal exam: Present: distended (Obese), normal bowel sounds, soft. Absent: tenderness - Extremities Exam Extremities exam: Present: pedal edema (Trace right lower extremity). Absent: joint swelling, normal inspection (Venous stasis dermatitis noted to the right lower extremity.), tenderness - Neurological Exam Neurological exam: Present: alert, oriented X3, no focal deficits - Psychiatric Psychiatric exam: Present: normal affect, normal mood - Skin Skin exam: Present: dry, intact, normal color, warm Additional comments: No endocarditis stigmata noted. Consult Discharge Plan - Plan Referrals: Jay Valenzuela DO [Primary Care Provider] - (office will call patient for an appointment when there is available time sooner) - Attending Attestation I examined this patient and my medical decision-making was reviewed with the Resident Physician. I agree with the documented findings, disposition and treatment plan as described except to the extent set forth below.
--- NOTE | 2018-03-11 14:55 | Internal Med Progress Note ---
Hospitalist Progress Note - Encounter Date of Encounter: 03/11/18 Time of Encounter: 14:52 - Subjective Interval History: I have seen and evaluated patient bedside. reports feeling well. denies chest pain, nausea, vomiting or shortness of breath. - Exam Vitals: Temp Pulse Resp BP Pulse Ox 98.4 F 57 15 164/76 96 03/11/18 11:17 03/11/18 11:17 03/11/18 11:17 03/11/18 11:17 03/11/18 11:17 Exam: Vitals: Reviewed. General: Alert and oriented x4. In no acute distress. HEENT: EOM, pupils equal, round and reactive. Cardiovascular: RRR, normal S1 & S2, no rubs, murmurs or gallops. Lungs: CTA b/l, no wheezes or crackles. Abdomen: Obese, Soft, non-tender, no rigidity. NABS in all 4 quadrants Extremities: No edema. Neurological: Normal cognition Rest of the physical exam is non contributory - Assessment and Plan (1) Sepsis Current Visit: Yes Status: Resolved Assessment and Plan: due to CLABSI. catheter removed. Patient on vancomycin with HD per ID recommendations. Repeat blood culture: no growth, pending final report. Patient scheduled fr HD catheter placement today. (2) CRBSI (catheter-related bloodstream infection) Current Visit: Yes Status: Resolved (3) Degenerative joint disease of right hip Current Visit: Yes Status: Chronic Assessment and Plan: pain control with norco 5-325mg/PO Q6HR PRN. (4) Type 2 diabetes mellitus Current Visit: Yes Status: Chronic Assessment and Plan: blood sugar is well controlled. patient on Lispro low dose sliding scale ac. carb and renal controlled diet. (5) Hypertensive renal disease with renal failure Current Visit: Yes Status: Chronic Assessment and Plan: sub-optimally controlled BP. clonidine increase to 0.3mg/PO TID, on furosemide, nifedipine, carvedilol and hydralazine. will continue to monitor. (6) COPD (chronic obstructive pulmonary disease) Current Visit: Yes Status: Chronic Assessment and Plan: not acutely exacerbated. Continue bronchodilators when necessary, and Symbicort and Spiriva. Incentive spirometry. (7) Hyperlipidemia Current Visit: Yes Status: Chronic Assessment and Plan: Continue rosuvastatin 40mg/PO HS plus fenofibrate (8) CAD (coronary artery disease) Current Visit: Yes Status: Chronic Assessment and Plan: Patient is on aspirin 81 mg by mouth daily. On ranolazine 500mg/PO BID. (9) ESRD (end stage renal disease) on dialysis Current Visit: Yes Status: Chronic Assessment and Plan: renal replacement therapy as per nephrology recommendations. on metolazone and furosemide. (10) Hyponatremia Current Visit: No Status: Acute Assessment and Plan: on fluid restriction to 1.5 litters a day. patient asymptomatic. (11) Obesity Current Visit: No Status: Chronic (12) Sacral decubitus ulcer Current Visit: Yes Status: Chronic Assessment and Plan: plan as per wound care recommendations. (13) CHF (congestive heart failure) Current Visit: Yes Status: Chronic Assessment and Plan: HfpEF, not exacerbated. fluids restriction to 1.5 litters a day. daily weight. on furosemide. DVT Prophylaxis: Continue heparin 5000 units subcutaneous twice a day. - Summary of Assessment and Plan Summary of Assessment and Plan: Patient to remain in the hospital scheduled for HD catheter placement today. potential discharge tomorrow. - Time Spent with Patient Total time spent is greater than 50% in coordination of care (as documented) at patient's floor/unit and/or counseling patient: Greater than 35 minutes (45) Plan of Care Discussed with: patient (and the nurse.) Internal Medicine: Result - Labs CBC & Chem 7: 03/11/18 08:12 03/11/18 08:12 Labs: Short CBC 03/11/18 Range/Units 08:12 WBC 10.9 (4.3-11.1) K/mcL Hgb 9.6 L (11.5-15.4) g/dL Hct 29.7 L (35.3-44.9) % Plt Count 238 (140-400) K/mcL BMP 03/11/18 08:12 Sodium 129 L Potassium 3.7 Chloride 92 L Carbon Dioxide 26 BUN 80 H Creatinine 5.95 H Glucose 114 H Calcium 9.4 - ABG Interpretation ABG results: PT/INR, D-dimer PT 12.1 Seconds (9.4-12.1) 03/02/18 07:55 - Impressions Impressions Chest X-Ray 03/10/18 12:07 IMPRESSION: Linear opacity in the right lung base likely representing atelectasis. D/ / Krishna Lawson MD / Krishna Lawson MD Interpreting Provider: Krishna Lawson MD Consult Discharge Plan - Plan Referrals: Jay Valenzuela DO [Primary Care Provider] - (office will call patient for an appointment when there is available time sooner) (1) Sepsis Qualifiers: Sepsis type: methicillin resistant Staphylococcus aureus Qualified Code(s): A41.02 - Sepsis due to Methicillin resistant Staphylococcus aureus (2) CRBSI (catheter-related bloodstream infection) Qualifiers: Qualified Code(s): T80.211A - Bloodstream infection due to central venous catheter, initial encounter (3) Degenerative joint disease of right hip Qualifiers: Osteoarthritis type: unspecified Qualified Code(s): M16.11 - Unilateral primary osteoarthritis, right hip (4) Type 2 diabetes mellitus Qualifiers: Diabetes mellitus usp insulin use: with ferry terminal agent use Diabetes mellitus complication status: with kidney complications Diabetes mellitus complication detail: with chronic kidney disease Chronic kidney disease stage: on chronic dialysis Qualified Code(s): E11.22 - Type 2 diabetes mellitus with diabetic chronic kidney disease; N18.6 - End stage renal disease; Z79.4 - parts counterman (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 (7) Hyperlipidemia Qualifiers: Hyperlipidemia type: unspecified Qualified Code(s): E78.5 - Hyperlipidemia, unspecified (8) CAD (coronary artery disease) Qualifiers: Coronary Disease-Associated Artery/Lesion type: unspecified vessel or lesion type [place] vs. transplanted heart: unspecified whether [place] or transplanted heart Associated angina: angina presence unspecified Qualified Code(s): I25.10 - Atherosclerotic heart disease of [place] coronary artery without angina pectoris (11) Obesity Qualifiers: Obesity type: unspecified obesity type Obesity classification: adult class 3 (BMI >= 40) Serious obesity comorbidity presence: with serious comorbidity Body mass index: BMI 45.0-49.9 Qualified Code(s): E66.01 - Morbid (severe) obesity due to excess calories; Z68.42 - Body mass index (BMI) 45.0-49.9, adult (12) Sacral decubitus ulcer Qualifiers: Pressure injury stage: stage 1 Qualified Code(s): L89.151 - Pressure ulcer of sacral region, stage 1 (13) CHF (congestive heart failure) Qualifiers: Heart failure type: unspecified Heart failure chronicity: chronic Qualified Code(s): I50.9 - Heart failure, unspecified
[2018-03-11] MEDS ORDERED: Vancomycin 500 MG in 0.9 % Sodium Chloride Mini Bag 100 ML IVPB ONE ×2 (15:00→20:00)
[2018-03-11] MEDS ORDERED: Heparin 1,000 UNITS/500 mL 500 ML ONE (16:33)
[2018-03-11] MEDS ORDERED: *HR* Heparin 5,000 UNIT/ML VIAL ONE (16:58)
--- NOTE | 2018-03-11 17:01 | IR Procedure Note ---
Date of procedure: 03/11/18 Consent Obtained: Verbal consent, Written consent Timeout: Correct patient and procedure verified, Correct site verified, Time out performed, Skin prep completed Local anesthetic: Lidocaine 1% Indications: ESRD Procedure Performed: temp HDC insertion Was there an educational assistant teacher present: No Site/Technique: LIJ Estimated blood loss (cc): 2 Complications: None; Tolerated procedure well Specimen: none
[2018-03-11] MEDS ORDERED: Isovue-300 50 ML VIAL IVP ONE (17:02)
[2018-03-11] MEDS ORDERED: 0.9 % Sodium Chloride 1,000 ML ONE (18:38)
[2018-03-11] MEDS: Famotidine 20 MG TABLET PO SCH (22:59)
[2018-03-11] MEDS: traZODone 50 MG TABLET PO SCH (23:06)
[2018-03-11] MEDS: risperiDONE 1 MG TABLET PO SCH (23:07)
[2018-03-12] MEDS: *HR* HYDROcodone/Acet 5/325 mg TABLET PO PRN (00:32)
[2018-03-12] MEDS ORDERED: 0.9 % Sodium Chloride 2,000 ML ONE (06:33)
[2018-03-12 06:49] LABS: Hematocrit 31.2 % (35.3-44.9); Mean Corpuscular HGB Conc 32.1 g/dL (31.6-35.5); Mean Corpuscular Hemoglobin 27.5 pg (28.0-33.3); Mean Platelet Volume 9.1 fL (9.4-12.4); Platelet Count 250 K/mcL (140-400); Red Blood Count 3.63 M/mcL (3.82-4.97); Red Cell Distribution Width 15.1 % (11.5-14.5)
[2018-03-12] MEDS ORDERED: *HR* Heparin 10,000 UNIT/10 ML VIAL IV PRN (06:51)
[2018-03-12] MEDS ORDERED: 0.9 % Sodium Chloride 250 ML IVC PRN (06:51)
[2018-03-12] MEDS ORDERED: 0.9 % Sodium Chloride 1,000 ML PRIME SCH (07:00)
[2018-03-12 07:01] LABS: Calcium 9.4 mg/dL (8.6-10.3)
[2018-03-12] MEDS: Tiotropium 18 MCG inhalation IH SCH (08:09)
[2018-03-12] MEDS: Budesonide/Formoterol 160/4.5 1 PUFF INH IH SCH ×2 (08:09→22:08)
[2018-03-12] MEDS: Fenofibrate 54 MG TABLET PO SCH (09:00)
[2018-03-12] MEDS: Furosemide 20 MG TABLET PO SCH (09:01)
[2018-03-12] MEDS: Aspirin Enteric Coated 81 MG Tablet PO SCH (09:01)
[2018-03-12] MEDS: ALPRAZolam 1 MG TABLET PO SCH ×2 (09:01→22:23)
[2018-03-12] MEDS: metOLazone 5 MG TABLET PO SCH (09:01)
[2018-03-12] MEDS: Insulin LISPRO 300 UNITS/3 ML VIAL SQ SCH ×4 (09:04→23:31)
[2018-03-12] MEDS: NIFEdipine XL (24 HR) 30 MG TAB.ER.24 PO SCH (09:05)
[2018-03-12] MEDS: hydrALAZINE 25 MG TABLET PO SCH ×3 (09:05→22:22)
[2018-03-12] MEDS: cloNIDine HCl 0.1 MG TABLET PO SCH ×3 (09:05→22:22)
[2018-03-12] MEDS: Nystatin POWDER 30 GM BOTTLE TP SCH ×2 (09:05→22:29)
--- NOTE | 2018-03-12 09:25 | Infectious Disease Progress No ---
Date of Encounter: 03/12/18 Time of Encounter: 08:50 - Assessment and Plan (1) Sepsis Current Visit: Yes Status: Resolved Patient had 2 sepsis criteria on admission. Likely secondary to bacteremia. White blood cell count normal this morning. Afebrile overnight. Blood cultures drawn 03/02/18 are +2 out of 2 sets for enterococcus faecalis, AmpS. Repeat blood cultures drawn 03/04/18 (one from peripheral and one centrally) are positive 2/2. Additional peripheral cultures drawn 03/08/18 are NGTD x 2 sets. Recommendations: Await blood culture results. Continue to trend WBC. Check procalcitonin. --> pending. Temporary HD catheter placed 03/11/18 per IR. Okay to place perma-cath from and ID perspective. Continue Vancomycin IV for ease of dosing as an outpatient since it can be given at HD. Pharmacy to dose. Goal trough ~15. Duration of treatment depends on the clinical picture, likely a total of 2 weeks from site of negative blood cultures. Treat through 03/21/18. Monitor renal function and for drug toxicity and dose-adjust antibiotics. Qualifiers: Sepsis type: methicillin resistant Staphylococcus aureus Qualified Code(s): A41.02 - Sepsis due to Methicillin resistant Staphylococcus aureus (2) Bacteremia Current Visit: No Status: Acute Causative organism: Enterococcus faecalis, AmpS and MRSA. Source: likely the HD catheter. Blood cultures drawn 03/02/18 are positive 2/2 sets (peripheral) for Enterococcus faecalis. Repeat blood cultures drawn 03/04/18 are positive 2/2 (one central and one peripheral). Repeat blood cultures drawn 03/08/18 are NGTD x 2 sets. HD catheter tip culture is positive for MRSA and E. faecalis. No endocarditis stigmata noted on exam. The patient has one major and one minor Modified Barron's criteria. Currently on Vanc. (3) CLABSI (central line-associated bloodstream infection) Current Visit: Yes Status: Acute Qualifiers: Encounter type: initial encounter Qualified Code(s): T80.211A - Bloodstream infection due to central venous catheter, initial encounter (4) Osteoarthritis of right hip Current Visit: Yes Status: Acute CT of the right hip showed no acute fracture or dislocation with minimal degenerative changes at the right hip joint space. Status post CT-guided arthrocentesis 03/02/18 by IR. 1ml clear fluid aspirated. Unable to do cell count do to volume of the fluid. Gram stain negative, culture is negative. Low index of suspicion of septic arthritis (either seeding or source of bacteremia). Pain management per the primary team. Qualifiers: Osteoarthritis type: unspecified Qualified Code(s): M16.11 - Unilateral primary osteoarthritis, right hip (5) Hyponatremia Current Visit: Yes Status: Resolved Nephrology consulted and following. (6) Constipation Current Visit: No Status: Resolved No bowel movement documented since 03/07/18. Bowel regimen per the primary team. Qualifiers: Constipation type: unspecified constipation type Qualified Code(s): K59.00 - Constipation, unspecified (7) CAD (coronary artery disease) Current Visit: No Status: Chronic Qualifiers: Coronary Disease-Associated Artery/Lesion type: [place] artery [place] vs. transplanted heart: [place] heart Associated angina: without angina Qualified Code(s): I25.10 - Atherosclerotic heart disease of [place] coronary artery without angina pectoris (8) Obesity Current Visit: No Status: Chronic Qualifiers: Obesity type: unspecified obesity type Obesity classification: adult class 3 (BMI >= 40) Serious obesity comorbidity presence: with serious comorbidity Body mass index: BMI 45.0-49.9 Qualified Code(s): E66.01 - Morbid (severe) obesity due to excess calories; Z68.42 - Body mass index (BMI) 45.0-49.9, adult (9) Diabetes mellitus Current Visit: No Status: Chronic Qualifiers: Diabetes mellitus type: type 2 Diabetes mellitus vermin exterminator insulin use: with vermin exterminator use Diabetes mellitus complication status: with kidney complications Diabetes mellitus complication detail: with chronic kidney disease Chronic kidney disease stage: stage 4 (severe) Qualified Code(s): E11.22 - Type 2 diabetes mellitus with diabetic chronic kidney disease; N18.4 - Chronic kidney disease, stage 4 (severe); Z79.4 - care home (current) use of insulin (10) COPD (chronic obstructive pulmonary disease) Current Visit: Yes Status: Acute Qualifiers: COPD type: unspecified COPD Qualified Code(s): J44.9 - Chronic obstructive pulmonary disease, unspecified (11) CCF (congestive cardiac failure) Current Visit: Yes Status: Acute Qualifiers: Heart failure type: diastolic Heart failure chronicity: unspecified Qualified Code(s): I50.30 - Unspecified diastolic (congestive) heart failure (12) ESRD (end stage renal disease) on dialysis Current Visit: Yes Status: Chronic Nephrology consulted and following. (13) Back pain Current Visit: Yes Status: Resolved Etiology unclear. CT of the L-spine, abdomen, and pelvis negative for acute abnormality. Pain management per the primary team. Qualifiers: Back pain location: low back pain Chronicity: acute Back pain laterality: midline Sciatica presence: unspecified whether sciatica present Qualified Code(s): M54.5 - Low back pain (14) Sacral ulcer Current Visit: Yes Status: Acute Location: Left buttock. Clinically does not appear infected. Wound care consulted and following. 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 Patient seen and examined. No acute events noted overnight. Status post temporary HD catheter placement 03/11/18 by IR. Denies fevers, chills, or rigors. Denies chest pain, shortness of breath, or cough. Denies nausea, vomiting, diarrhea, or constipation. States she is unsure when she last had a bowel movement, but thinks it was 3 days ago. She denies abdominal pain or urinary complaints. She denies any joint, back, or extremity pain. She denies any oral thrush. She has developed a pressure ulcer to the left buttock. Status post HD line exchange 03/04/18 and HD line removal 03/08/18. Infect Dis PN-Objective Data - Labs CBC & Chem 7: 03/12/18 06:15 03/12/18 06:15 Labs: Laboratory Results - last 24 hr 03/10/18 03/11/18 03/11/18 20:13 04:58 11:36 WBC RBC Hgb Hct MCV MCH MCHC RDW Plt Count MPV Sodium Potassium Chloride Carbon Dioxide BUN Creatinine Est GFR ( Amer) Est GFR (Non-Af Amer) BUN/Creatinine Ratio Glucose POC Glucose 231 H 110 H 125 H Calculated Osmolality Calcium 03/11/18 03/12/18 03/12/18 17:40 06:15 06:15 WBC 9.0 RBC 3.63 L Hgb 10.0 L Hct 31.2 L MCV 86.0 MCH 27.5 L MCHC 32.1 RDW 15.1 H Plt Count 250 MPV 9.1 L Sodium 131 L Potassium 4.0 Chloride 95 L Carbon Dioxide 27 BUN 59 H Creatinine 5.12 H Est GFR ( Amer) 10 L Est GFR (Non-Af Amer) 8 L BUN/Creatinine Ratio 12 Glucose 121 H POC Glucose 117 H Calculated Osmolality 290 Calcium 9.4 Cultures: Cultures 03/04/18 10:40 Blood Culture - Final Central Venous Catheter Enterococcus faecalis 03/08/18 10:55 Blood Culture - Preliminary Peripheral Venipuncture Culture is incubating and being continuously monitored for growth. Final report to follow. 03/08/18 11:06 Blood Culture - Preliminary Peripheral Venipuncture Culture is incubating and being continuously monitored for growth. Final report to follow. 03/04/18 14:00 Catheter Tip Culture - Final Intravenous or Arterial Cath Methicillin Resistant S.aureus Enterococcus faecalis 03/04/18 10:50 Blood Culture - Final Peripheral Venipuncture Enterococcus faecalis 03/02/18 14:47 Body Fluid Culture - Final Synovial Fluid 03/02/18 07:50 Blood Culture - Final Peripheral Venipuncture Enterococcus faecalis 03/02/18 07:55 Blood Culture - Final Peripheral Venipuncture Enterococcus faecalis 03/02/18 07:25 Urine Culture - Final Urine,Clean Catch Serology 03/08/18 03/08/18 03/04/18 Range/Units 16:40 16:40 10:50 Urine Color (Yellow) Urine Clarity (Clear) Urine pH (5.0-8.0) pH Units Ur Specific [place] (1.010-1.025) Urine Protein (Neg-Trace) mg/dL Urine Glucose (UA) (Normal) mg/dL Urine Ketones (Negative) mg/dL Urine Blood (Negative) Urine Nitrite (Negative) Urine Bilirubin (Negative) Urine Urobilinogen (Normal) mg/dL Ur Leukocyte Esterase (Negative) Urine Microscopic RBC (0-3) per hpf Urine Microscopic WBC (0-3) per hpf Ur Squamous Epith Cells (None-Few) per lpf Ur Transition Epith Cell (None-Few) per hpf Ur Renal Epithelial Cell (None-Few) per hpf Urine Bacteria (None-Few) per hpf Hyaline Casts (None-Few) per lpf Urine Yeast (None Seen) per hpf Ur Culture Indicated? (NO) Urine Osmolality 255 L (300-1090) mOsm/kg Urine Sodium 25.9 mEq/L Synovial Source Synovial Color (Straw) Synovial Appearance (Clear-Hazy) Synovial Volume mL Synovial RBC Synovial Tot Nuc Cell Synovial Band Neuts Synovial Basophils Synovial Eosinophils Synovial Seg Neuts % Synovial Lymphocytes % Synovial Monocytes % Synovial Other Cells % A. baumannii (PCR) Not Detected (Not Detect) [place] albicans (PCR) Not Detected (Not Detect) C. glabrata (PCR) Not Detected (Not Detect) C. krusei (PCR) Not Detected (Not Detect) C. parapsilosis (PCR) Not Detected (Not Detect) C. tropicalis (PCR) Not Detected (Not Detect) Enterobacteriac sp PCR Not Detected (Not Detect) E. cloacae complex PCR Not Detected (Not Detect) Enterococcus sp PCR DETECTED A (Not Detect) E. coli (PCR) Not Detected (Not Detect) H. influenzae (PCR) Not Detected (Not Detect) Hep Bs Antigen (Nonreactive) Hep Bs Antibody (10.00 - ) mIU/mL Klebsiella oxytoca PCR Not Detected (Not Detect) Klebsiella pneumoniae Not Detected (Not Detect) List. monocytogenes PCR Not Detected (Not Detect) N. meningitidis (PCR) Not Detected (Not Detect) Proteus species (PCR) Not Detected (Not Detect) Serratia marcescens PCR Not Detected (Not Detect) Staphylococcus sp PCR Not Detected (Not Detect) Staph aureus (PCR) Not Detected (Not Detect) mecA-Methicil Res Gene Not Detected (Not Detect) Streptococcus sp PCR Not Detected (Not Detect) Group A Strep DNA Not Detected (Not Detect) Group B Strep (PCR) Not Detected (Not Detect) Strep pneumoniae (PCR) Not Detected (Not Detect) P. aeruginosa (PCR) Not Detected (Not Detect) Sil/B-Vanco Res Genes Not Detected (Not Detect) KPC (blaKPC) Detect PCR Not Detected (Not Detect) 03/02/18 03/02/18 03/02/18 Range/Units 16:28 14:47 07:55 Urine Color (Yellow) Urine Clarity (Clear) Urine pH (5.0-8.0) pH Units Ur Specific [place] (1.010-1.025) Urine Protein (Neg-Trace) mg/dL Urine Glucose (UA) (Normal) mg/dL Urine Ketones (Negative) mg/dL Urine Blood (Negative) Urine Nitrite (Negative) Urine Bilirubin (Negative) Urine Urobilinogen (Normal) mg/dL Ur Leukocyte Esterase (Negative) Urine Microscopic RBC (0-3) per hpf Urine Microscopic WBC (0-3) per hpf Ur Squamous Epith Cells (None-Few) per lpf Ur Transition Epith Cell (None-Few) per hpf Ur Renal Epithelial Cell (None-Few) per hpf Urine Bacteria (None-Few) per hpf Hyaline Casts (None-Few) per lpf Urine Yeast (None Seen) per hpf Ur Culture Indicated? (NO) Urine Osmolality (300-1090) mOsm/kg Urine Sodium mEq/L Synovial Source right hip Synovial Color Colorless (Straw) Synovial Appearance Clear (Clear-Hazy) Synovial Volume 1.0 mL Synovial RBC TNP Synovial Tot Nuc Cell TNP Synovial Band Neuts TNP Synovial Basophils TNP Synovial Eosinophils TNP Synovial Seg Neuts % TNP Synovial Lymphocytes % TNP Synovial Monocytes % TNP Synovial Other Cells % TNP A. baumannii (PCR) Not Detected (Not Detect) [place] albicans (PCR) Not Detected (Not Detect) C. glabrata (PCR) Not Detected (Not Detect) C. krusei (PCR) Not Detected (Not Detect) C. parapsilosis (PCR) Not Detected (Not Detect) C. tropicalis (PCR) Not Detected (Not Detect) Enterobacteriac sp PCR Not Detected (Not Detect) E. cloacae complex PCR Not Detected (Not Detect) Enterococcus sp PCR DETECTED A (Not Detect) E. coli (PCR) Not Detected (Not Detect) H. influenzae (PCR) Not Detected (Not Detect) Hep Bs Antigen Nonreactive (Nonreactive) Hep Bs Antibody < 3.10 L (10.00 - ) mIU/mL Klebsiella oxytoca PCR Not Detected (Not Detect) Klebsiella pneumoniae Not Detected (Not Detect) List. monocytogenes PCR Not Detected (Not Detect) N. meningitidis (PCR) Not Detected (Not Detect) Proteus species (PCR) Not Detected (Not Detect) Serratia marcescens PCR Not Detected (Not Detect) Staphylococcus sp PCR Not Detected (Not Detect) Staph aureus (PCR) Not Detected (Not Detect) mecA-Methicil Res Gene N/A (Not Detect) Streptococcus sp PCR Not Detected (Not Detect) Group A Strep DNA Not Detected (Not Detect) Group B Strep (PCR) Not Detected (Not Detect) Strep pneumoniae (PCR) Not Detected (Not Detect) P. aeruginosa (PCR) Not Detected (Not Detect) Sil/B-Vanco Res Genes Not Detected (Not Detect) KPC (blaKPC) Detect PCR N/A (Not Detect) 03/02/18 Range/Units 07:25 Urine Color Yellow (Yellow) Urine Clarity Hazy A (Clear) Urine pH 6.0 (5.0-8.0) pH Units Ur Specific [place] 1.009 L (1.010-1.025) Urine Protein >=300 H (Neg-Trace) mg/dL Urine Glucose (UA) 100 H (Normal) mg/dL Urine Ketones Negative (Negative) mg/dL Urine Blood Negative (Negative) Urine Nitrite Negative (Negative) Urine Bilirubin Negative (Negative) Urine Urobilinogen Normal (Normal) mg/dL Ur Leukocyte Esterase Small H (Negative) Urine Microscopic RBC 0-3 (0-3) per hpf Urine Microscopic WBC 30-50 H (0-3) per hpf Ur Squamous Epith Cells Few (None-Few) per lpf Ur Transition Epith Cell Few (None-Few) per hpf Ur Renal Epithelial Cell Few (None-Few) per hpf Urine Bacteria None Seen (None-Few) per hpf Hyaline Casts None Seen (None-Few) per lpf Urine Yeast Few H (None Seen) per hpf Ur Culture Indicated? YES A (NO) Urine Osmolality (300-1090) mOsm/kg Urine Sodium mEq/L Synovial Source Synovial Color (Straw) Synovial Appearance (Clear-Hazy) Synovial Volume mL Synovial RBC Synovial Tot Nuc Cell Synovial Band Neuts Synovial Basophils Synovial Eosinophils Synovial Seg Neuts % Synovial Lymphocytes % Synovial Monocytes % Synovial Other Cells % A. baumannii (PCR) (Not Detect) [place] albicans (PCR) (Not Detect) C. glabrata (PCR) (Not Detect) C. krusei (PCR) (Not Detect) C. parapsilosis (PCR) (Not Detect) C. tropicalis (PCR) (Not Detect) Enterobacteriac sp PCR (Not Detect) E. cloacae complex PCR (Not Detect) Enterococcus sp PCR (Not Detect) E. coli (PCR) (Not Detect) H. influenzae (PCR) (Not Detect) Hep Bs Antigen (Nonreactive) Hep Bs Antibody (10.00 - ) mIU/mL Klebsiella oxytoca PCR (Not Detect) Klebsiella pneumoniae (Not Detect) List. monocytogenes PCR (Not Detect) N. meningitidis (PCR) (Not Detect) Proteus species (PCR) (Not Detect) Serratia marcescens PCR (Not Detect) Staphylococcus sp PCR (Not Detect) Staph aureus (PCR) (Not Detect) mecA-Methicil Res Gene (Not Detect) Streptococcus sp PCR (Not Detect) Group A Strep DNA (Not Detect) Group B Strep (PCR) (Not Detect) Strep pneumoniae (PCR) (Not Detect) P. aeruginosa (PCR) (Not Detect) Sil/B-Vanco Res Genes (Not Detect) KPC (blaKPC) Detect PCR (Not Detect) Exam - Constitutional Vitals: Temp Pulse Resp BP Pulse Ox 97.4 F L 64 17 129/69 94 03/12/18 07:56 03/12/18 07:56 03/12/18 08:11 03/12/18 07:56 03/12/18 08:11 General appearance: cooperative, morbidly obese, no acute distress - Head Head exam: Present: atraumatic, normal inspection, normocephalic - Eye Eye exam: Present: EOMI, normal appearance, PERRL Pupils: Present: normal accommodation Additional comments: No subconjunctival hemorrhage noted. - ENT ENT exam: Present: mucous membranes moist - Neck Neck exam: Present: normal inspection Additional comments: Temporary HD catheter noted to the left neck with transparent dressing C/D/I. - Respiratory Respiratory exam: Present: CTAB. Absent: rales, respiratory distress, rhonchi, wheezes - Cardiovascular Cardiovascular exam: Present: RRR, +S1, +S2 - GI/Abdominal GI/Abdominal exam: Present: distended (obese), normal bowel sounds, soft. Absent: tenderness - Extremities Exam Extremities exam: Absent: joint swelling, normal inspection (Venous stasis dermatitis noted to the RLE.), pedal edema, tenderness - Neurological Exam Neurological exam: Present: alert, oriented X3, no focal deficits - Psychiatric Psychiatric exam: Present: normal affect, normal mood - Skin Skin exam: Present: dry, intact, normal color, warm Consult Discharge Plan - Plan Referrals: Jay Valenzuela DO [Primary Care Provider] - (office will call patient for an appointment when there is available time sooner) - Attending Attestation I have personally performed a face to face evaluation on this patient. I have reviewed and agree with the care plan. History and Exam by me shows: Patient seen and examined. Agree with above findings. Continue vancomycin for 2 weeks duration Monitor for drug toxicity Call vancomycin trough around 15 to be given after dialysis
[2018-03-12] MEDS: Ranolazine 500 MG TAB.ER.12H PO SCH ×2 (09:27→22:23)
--- NOTE | 2018-03-12 12:23 | Internal Med Progress Note ---
Hospitalist Progress Note - Encounter Date of Encounter: 03/12/18 Time of Encounter: 11:48 - Subjective Interval History: Patient seen and examined this morning at bedside. Denies new complaints. Denies any chest pain, abdominal pain, back pain, difficulty breathing, nausea vomiting or diarrhea. AFebrile. - Exam Vitals: Temp Pulse Resp BP Pulse Ox 98.5 F 63 17 121/67 98 03/12/18 11:46 03/12/18 11:46 03/12/18 11:46 03/12/18 11:46 03/12/18 11:46 Exam: General: In no acute distress. Conversant. Obese. Respiratory exam: CTAB. no accessory muscle use, rales, rhonchi, wheezes Cardiovascular exam: RRR, +S1, +S2. no murmur, gallop, rubs. LT IJ dialysis catheter. GI/Abdominal exam: Non-tender, Non-distended, normal bowel sounds, soft, no peritoneal signs. Extremities exam: full ROM, no pedal edema, warm, pulses palpable in b/l lower extremities. no calf tenderness Neurological exam: CN II-XII intact, AO X3, no focal deficits. no pronater drift, facial droop, speech deficit Skin exam: Lt buttock decubitus ulcer. - Assessment and Plan (1) Obesity Current Visit: No Status: Chronic (2) Sepsis Current Visit: Yes Status: Resolved (3) Hyponatremia Current Visit: No Status: Acute (4) CAD (coronary artery disease) Current Visit: Yes Status: Chronic (5) ESRD (end stage renal disease) on dialysis Current Visit: Yes Status: Chronic (6) CRBSI (catheter-related bloodstream infection) Current Visit: Yes Status: Resolved (7) Degenerative joint disease of right hip Current Visit: Yes Status: Chronic (8) Type 2 diabetes mellitus Current Visit: Yes Status: Chronic (9) Hypertensive renal disease with renal failure Current Visit: Yes Status: Chronic (10) COPD (chronic obstructive pulmonary disease) Current Visit: Yes Status: Chronic (11) Hyperlipidemia Current Visit: Yes Status: Chronic (12) Sacral decubitus ulcer Current Visit: Yes Status: Chronic (13) CHF (congestive heart failure) Current Visit: Yes Status: Chronic - Summary of Assessment and Plan Summary of Assessment and Plan: Sepsis - secondary to bacteremia from CLABSI from HD cath. Now catheter removed. Temp IJ placed but did not function well. To be replaced today as IR need Blood cultures reported to be negative on final report to place permacath. Will be on thursday. - c/w vancomycin with HD per ID recommendations - Blood cultures grew Enterococcus fecali, MRSA. Repeat blood culture 03/08 NGTD, pending final report. Degenerative joint disease of right hip - s/p CT-guided arthrocentesis. Unable to get enough volume. Gram stain negative, culture is negative. Low index of suspicion of septic arthritis per ID. - pain control with norco 5-325mg/PO Q6HR PRN. Type 2 diabetes mellitus - c/w sliding scale and accuchecks. carb and renal controlled diet. Hypertensive renal disease with renal failure - Bp well controlled - c/w current regimen COPD - not acutely exacerbated. - c/w duonebs prn, and Symbicort and Spiriva. CAD - c/w aspirin , ranolazine ESRD - Nephrology following for HD - c/w metolazone and furosemide. Sacral decubitus ulcer - not infected - wound care following diastolic CHF - fluids restriction to 1.5 litters a day. daily weight. - c/w furosemide and metolazone DVT Prophylaxis: - SC heparin - Time Spent with Patient Total time spent is greater than 50% in coordination of care (as documented) at patient's floor/unit and/or counseling patient: Internal Medicine: Result - Labs CBC & Chem 7: 03/12/18 06:15 03/12/18 06:15 Labs: Short CBC 03/12/18 Range/Units 06:15 WBC 9.0 (4.3-11.1) K/mcL Hgb 10.0 L (11.5-15.4) g/dL Hct 31.2 L (35.3-44.9) % Plt Count 250 (140-400) K/mcL BMP 03/12/18 06:15 Sodium 131 L Potassium 4.0 Chloride 95 L Carbon Dioxide 27 BUN 59 H Creatinine 5.12 H Glucose 121 H Calcium 9.4 - ABG Interpretation ABG results: PT/INR, D-dimer PT 12.1 Seconds (9.4-12.1) 03/02/18 07:55 Consult Discharge Plan - Plan Referrals: Valenzuela,Jay L, DO [Primary Care Provider] - (office will call patient for an appointment when there is available time sooner) (1) Obesity Qualifiers: Obesity type: unspecified obesity type Obesity classification: adult class 3 (BMI >= 40) Serious obesity comorbidity presence: with serious comorbidity Body mass index: BMI 45.0-49.9 Qualified Code(s): E66.01 - Morbid (severe) obesity due to excess calories; Z68.42 - Body mass index (BMI) 45.0-49.9, adult (2) Sepsis Qualifiers: Sepsis type: methicillin resistant Staphylococcus aureus Qualified Code(s): A41.02 - Sepsis due to Methicillin resistant Staphylococcus aureus (4) CAD (coronary artery disease) Qualifiers: Coronary Disease-Associated Artery/Lesion type: unspecified vessel or lesion type [place] vs. transplanted heart: unspecified whether [place] or transplanted heart Associated angina: angina presence unspecified Qualified Code(s): I25.10 - Atherosclerotic heart disease of [place] coronary artery without angina pectoris (6) CRBSI (catheter-related bloodstream infection) Qualifiers: Qualified Code(s): T80.211A - Bloodstream infection due to central venous catheter, initial encounter (7) Degenerative joint disease of right hip Qualifiers: Osteoarthritis type: unspecified Qualified Code(s): M16.11 - Unilateral primary osteoarthritis, right hip (8) Type 2 diabetes mellitus Qualifiers: Diabetes mellitus exterminator insulin use: with exterminator use Diabetes mellitus complication status: with kidney complications Diabetes mellitus complication detail: with chronic kidney disease Chronic kidney disease stage: on chronic dialysis Qualified Code(s): E11.22 - Type 2 diabetes mellitus with diabetic chronic kidney disease; N18.6 - End stage renal disease; Z79.4 - nursing home (current) use of insulin; Z99.2 - Dependence on renal dialysis (10) COPD (chronic obstructive pulmonary disease) Qualifiers: COPD type: unspecified COPD Qualified Code(s): J44.9 - Chronic obstructive pulmonary disease, unspecified (11) Hyperlipidemia Qualifiers: Hyperlipidemia type: unspecified Qualified Code(s): E78.5 - Hyperlipidemia, unspecified (12) Sacral decubitus ulcer Qualifiers: Pressure injury stage: stage 1 Qualified Code(s): L89.151 - Pressure ulcer of sacral region, stage 1 (13) CHF (congestive heart failure) Qualifiers: Heart failure type: unspecified Heart failure chronicity: chronic Qualified Code(s): I50.9 - Heart failure, unspecified
[2018-03-12] MEDS ORDERED: Heparin 1,000 UNITS/500 mL 500 ML ONE (14:31)
[2018-03-12] MEDS ORDERED: *HR* Heparin 5,000 UNIT/ML VIAL ONE (15:13)
--- NOTE | 2018-03-12 15:51 | Discharge Summary ---
Orders not resulted at time of discharge: Pending orders 03/08/18 10:55 Culture,Blood [BC] Stat 03/11/18 IR cvc insert non tunnel [IR] Routine IR us guide vascular access [IR] Routine IR venogram caval superior [IR] Routine 03/13/18 04:00 Basic Metabolic Panel AM 0400 CBC no Diff [Complete Blood Count w/o Diff] [HEME] AM 0400 Vancomycin,Random AM 04003/14/18 04:00 Basic Metabolic Panel AM 0400 CBC no Diff [Complete Blood Count w/o Diff] [HEME] AM 04003/15/18 04:00 Basic Metabolic Panel AM 0400 CBC no Diff [Complete Blood Count w/o Diff] [HEME] AM 04003/16/18 04:00 Basic Metabolic Panel AM 0400 CBC no Diff [Complete Blood Count w/o Diff] [HEME] AM 04003/17/18 04:00 Basic Metabolic Panel AM 0400 CBC no Diff [Complete Blood Count w/o Diff] [HEME] AM 04003/18/18 04:00 Basic Metabolic Panel AM 0400 CBC no Diff [Complete Blood Count w/o Diff] [HEME] AM 04003/19/18 04:00 Basic Metabolic Panel AM 0400 CBC no Diff [Complete Blood Count w/o Diff] [HEME] AM 04003/20/18 04:00 Basic Metabolic Panel AM 0400 CBC no Diff [Complete Blood Count w/o Diff] [HEME] AM 0400 Date of Encounter: 03/12/18 Time of Encounter: 15:51 - Discharge Diagnosis (1) Obesity Status: Chronic Qualifiers: Obesity type: unspecified obesity type Obesity classification: adult class 3 (BMI >= 40) Serious obesity comorbidity presence: with serious comorbidity Body mass index: BMI 45.0-49.9 Qualified Code(s): E66.01 - Morbid (severe) obesity due to excess calories; Z68.42 - Body mass index (BMI) 45.0-49.9, adult (2) Sepsis Status: Resolved Qualifiers: Sepsis type: methicillin resistant Staphylococcus aureus Qualified Code(s): A41.02 - Sepsis due to Methicillin resistant Staphylococcus aureus (3) Hyponatremia Status: Acute (4) CAD (coronary artery disease) Status: Chronic Qualifiers: Coronary Disease-Associated Artery/Lesion type: unspecified vessel or lesion type [place] vs. transplanted heart: unspecified whether [place] or transplanted heart Associated angina: angina presence unspecified Qualified Code(s): I25.10 - Atherosclerotic heart disease of [place] coronary artery without angina pectoris (5) ESRD (end stage renal disease) on dialysis Status: Chronic (6) CRBSI (catheter-related bloodstream infection) Status: Resolved Qualifiers: Qualified Code(s): T80.211A - Bloodstream infection due to central venous catheter, initial encounter (7) Degenerative joint disease of right hip Status: Chronic Qualifiers: Osteoarthritis type: unspecified Qualified Code(s): M16.11 - Unilateral primary osteoarthritis, right hip (8) Type 2 diabetes mellitus Status: Chronic Qualifiers: Diabetes mellitus snf insulin use: with termite technician use Diabetes mellitus complication status: with kidney complications Diabetes mellitus complication detail: with chronic kidney disease Chronic kidney disease stage: on chronic dialysis Qualified Code(s): E11.22 - Type 2 diabetes mellitus with diabetic chronic kidney disease; N18.6 - End stage renal disease; Z79.4 - [facility] (current) use of insulin; Z99.2 - Dependence on renal dialysis (9) Hypertensive renal disease with renal failure Status: Chronic (10) COPD (chronic obstructive pulmonary disease) Status: Chronic Qualifiers: COPD type: unspecified COPD Qualified Code(s): J44.9 - Chronic obstructive pulmonary disease, unspecified (11) Hyperlipidemia Status: Chronic Qualifiers: Hyperlipidemia type: unspecified Qualified Code(s): E78.5 - Hyperlipidemia, unspecified (12) Sacral decubitus ulcer Status: Chronic Qualifiers: Pressure injury stage: stage 1 Qualified Code(s): L89.151 - Pressure ulcer of sacral region, stage 1 (13) CHF (congestive heart failure) Status: Chronic Qualifiers: Heart failure type: unspecified Heart failure chronicity: chronic Qualified Code(s): I50.9 - Heart failure, unspecified Hospital course: Ms. Garcia is a 67 year old female - Time Spent with Patient Total time spent providing and/or coordinating discharge services: - Discharge Medications Home Medications: ALPRAZolam [Xanax 1 MG Tablet] 1 mg PO BID 04/15/17 [History] Clopidogrel [Plavix] 75 mg PO DAILY 04/15/17 [History] DULoxetine [Cymbalta] 30 mg PO BID 04/15/17 [History] Famotidine [Heartburn Prevention] 20 mg PO BID 04/15/17 [History] risperiDONE [Risperidone] 1 mg PO HS 04/15/17 [History] Ranolazine [Ranexa] 500 mg PO BID 07/23/17 [History] Rosuvastatin [Crestor] 40 mg PO QPM 07/23/17 [History] Budesonide/Formoterol 160/4.5 [Symbicort 160/4.5] 2 puff IH BIDR 09/28/17 [ History] HYDROcodone/Acet 5/325 mg [[place] 5-325 mg] 1 tab PO BID PRN 09/28/17 [History] Tiotropium [Spiriva] 1 puff IH DAILY 09/28/17 [History] Hydralazine HCl 100 mg PO TID #90 tablet 10/04/17 [Rx] Carvedilol [Coreg] 25 mg PO BIDWM 30 Days #30 tablet 11/21/17 [Rx] cloNIDine HCl [CloNIDine HCl] 0.1 mg PO TID 30 Days #90 tablet 11/21/17 [Rx] metOLazone [Zaroxolyn] 5 mg PO DAILY@0730 30 Days #30 tablet 11/21/17 [Rx] Aspirin [Lo-Dose Aspirin EC] 81 mg PO DAILY 12/15/17 [History] Insulin Regular U-500 [HumuLIN R U-500] 70 unit SQ TID 12/15/17 [History] NIFEdipine [Nifedipine ER] 90 mg PO DAILY 12/15/17 [History] Sevelamer [Renvela] 800 mg PO TID 12/15/17 [History] Trazodone HCl 100 mg PO HS 12/15/17 [History] Albuterol Sulfate [Albuterol Inhaler] 2 puff IH Q6H PRN inhaler 12/21/17 [Rx] Fenofibrate Nanocrystallized [Fenofibrate] 160 mg PO DAILY 03/02/18 [History] Furosemide [Lasix] 20 mg PO DAILY 03/02/18 [History] Allergies/Adverse Reactions: Allergy/AdvReac Type Severity Reaction Status Date / Time morphine Allergy Hallucinati Verified 03/02/18 06:36 ng Sulfa (Sulfonamide Allergy Rash Verified 03/02/18 06:36 Antibiotics) Date of admission: 03/02/18 15:45 Primary care physician: Jay Valenzuela Consults: 03/02/18 09:23 Consult to Interventional Radiology [CONS] Stat Consulting Provider: Radiology Interventional Cols Reason for Consult: Right hip aspiration Time Notified: 09:24 Call Completed: Yes 03/02/18 15:30 Consult to Nephrology [CONS] Routine Consulting Provider: Kidney Amina/HINA/MONY/JENS Reason for Consult: ESRD on HD Tue/[place]/Sat Time Notified: 15:31 Call Completed: Yes 03/02/18 17:20 Consult to Nutrition [CONS] Routine Comment: Consulting Provider: NUTRITION Reason for Dietary Consult: Diet Education 03/03/18 08:00 Consult to Dialysis [CONS] ONCE 03/03/18 13:29 Consult to Infectious Diseases [CONS] Routine Consulting Provider: Infectious Disease Amina Reason for Consult: Bacteremia Time Notified: 13:32 Call Completed: Yes 03/03/18 15:21 Consult to Nurse Navigator [CONS] Routine Comment: HD PT 03/04/18 07:15 Consult to Dialysis [CONS] QTUTHSA 03/04/18 08:00 Consult to Dialysis [CONS] ONCE 03/04/18 10:51 Consult to Interventional Radiology [CONS] Routine Consulting Provider: Radiology Interventional Cols Reason for Consult: Please assess for Permacth guidewire exchange, re: poor flows and bacteremia. ID is following. Thank you. Call Completed: Yes 03/06/18 07:15 Consult to Dialysis [CONS] QTUTHSA 03/08/18 10:42 Consult to Interventional Radiology [CONS] Routine Consulting Provider: Radiology Interventional Cols Reason for Consult: Please remove permacath after HD today for line holiday. Will replace or Thursday. Time Notified: 10:43 Call Completed: Yes 03/08/18 10:49 Consult to Dialysis [CONS] Stat 03/10/18 09:14 Consult to Wound Care [CONS] Routine Reason for Consult: areas noted to coccyx Time Notified: 09:16 Call Completed: Yes 03/11/18 09:15 Consult to Dialysis [CONS] ONCE 03/11/18 10:30 Consult to Interventional Radiology [CONS] Routine Consulting Provider: Radiology Interventional Cols Reason for Consult: Please place temp line for HD today. Thanks Time Notified: 09:16 Call Completed: Yes 03/12/18 07:00 Consult to Dialysis [CONS] ONCE 03/12/18 11:27 Consult to Interventional Radiology [CONS] Stat Consulting Provider: Radiology Interventional Cols Reason for Consult: non functional cvc replacement Time Notified: 11:10 Call Completed: Yes - Constitutional Vitals: Temp Pulse Resp BP Pulse Ox 98.5 F 63 17 121/67 98 03/12/18 11:46 03/12/18 11:46 03/12/18 11:46 03/12/18 11:46 03/12/18 11:46 General appearance: Present: A&O X 3, no acute distress, obese, answers questions appropriately - Patient Status Condition: Fair - Discharge Instructions Follow Up With: Jay Valenzuela DO [Primary Care Provider] - (office will call patient for an appointment when there is available time sooner)
--- NOTE | 2018-03-12 16:36 | Nephrology Progress Note ---
Date of Encounter: 03/12/18 Time of Encounter: 12:00 - Assessment and Plan (1) Osteoarthritis of right hip Current Visit: Yes Status: Acute Qualifiers: Qualified Code(s): M16.11 - Unilateral primary osteoarthritis, right hip (2) Hyponatremia Current Visit: Yes Status: Resolved (3) ESRD (end stage renal disease) on dialysis Current Visit: Yes Status: Chronic (4) CRBSI (catheter-related bloodstream infection) Current Visit: Yes Status: Resolved Qualifiers: Qualified Code(s): T80.211A - Bloodstream infection due to central venous catheter, initial encounter Subjective Principal diagnosis: right hip pain Interval history: Pt seen and examined Objective - Vital Signs Vital signs: Vital Signs Temp Pulse Resp BP Pulse Ox 03/12/18 11:46 98.5 F 63 17 121/67 98 03/12/18 08:11 17 94 03/12/18 07:56 97.4 F L 64 17 129/69 92 03/12/18 04:19 98.5 F 67 16 144/60 92 03/12/18 00:17 98.6 F 61 18 158/60 93 03/11/18 20:28 16 91 03/11/18 19:47 97.8 F 67 15 119/70 90 03/11/18 19:30 97.2 F L 18 124/58 03/11/18 19:15 103/54 03/11/18 19:00 98/54 03/11/18 18:45 110/57 03/11/18 18:30 117/60 03/11/18 18:15 118/56 03/11/18 18:00 122/61 03/11/18 17:45 130/60 03/11/18 17:30 131/63 03/11/18 17:15 97.8 F 16 131/48 Intake and Output 03/12/18 03/12/18 03/12/18 07:59 15:59 23:59 Other: # Voids 1 Weight 111.8 kg Blood Glucose* 110 141 Patient Weight 03/12/18 23:59 Weight 111.8 kg - Lab 03/12/18 06:15 03/12/18 06:15 Most recent lab results Calcium 9.4 mg/dL (8.6-10.3) 03/12/18 06:15 Urine Sodium 25.9 mEq/L 03/08/18 16:40 Consult Discharge Plan - Plan Referrals: Jay Valenzuela DO [Primary Care Provider] - (office will call patient for an appointment when there is available time sooner)
[2018-03-12] MEDS: *HR* Heparin 5,000 UNIT/ML VIAL SQ SCH (18:15)
[2018-03-12] MEDS: risperiDONE 1 MG TABLET PO SCH (22:22)
[2018-03-12] MEDS: Famotidine 20 MG TABLET PO SCH (22:23)
[2018-03-12] MEDS: traZODone 50 MG TABLET PO SCH (22:23)
[2018-03-13 04:36] LABS: Hematocrit 32.4 % (35.3-44.9); Hemoglobin 10.3 g/dL (11.5-15.4); Mean Corpuscular HGB Conc 31.8 g/dL (31.6-35.5); Mean Corpuscular Hemoglobin 27.6 pg (28.0-33.3); Mean Corpuscular Volume 86.9 fL (83.0-100.0); Platelet Count 264 K/mcL (140-400); Red Blood Count 3.73 M/mcL (3.82-4.97); Red Cell Distribution Width 15.3 % (11.5-14.5)
[2018-03-13] MEDS: *HR* Heparin 5,000 UNIT/ML VIAL SQ SCH ×2 (05:10→17:33)
[2018-03-13 05:15] LABS: Calcium 9.5 mg/dL (8.6-10.3); Potassium 3.7 mEq/L (3.5-5.1)
[2018-03-13] MEDS ORDERED: Vancomycin 500 MG in 0.9 % Sodium Chloride Mini Bag 100 ML IVPB ONE (06:00)
[2018-03-13] MEDS: Insulin LISPRO 300 UNITS/3 ML VIAL SQ SCH ×4 (07:55→22:27)
[2018-03-13] MEDS: Fenofibrate 54 MG TABLET PO SCH (07:56)
[2018-03-13] MEDS: cloNIDine HCl 0.1 MG TABLET PO SCH ×3 (07:57→22:33)
[2018-03-13] MEDS: NIFEdipine XL (24 HR) 30 MG TAB.ER.24 PO SCH (07:57)
[2018-03-13] MEDS: hydrALAZINE 25 MG TABLET PO SCH ×3 (07:58→22:33)
[2018-03-13] MEDS: Furosemide 20 MG TABLET PO SCH (07:58)
[2018-03-13] MEDS: metOLazone 5 MG TABLET PO SCH (07:58)
[2018-03-13] MEDS: Ranolazine 500 MG TAB.ER.12H PO SCH ×2 (07:58→22:31)
[2018-03-13] MEDS: ALPRAZolam 1 MG TABLET PO SCH ×2 (07:58→22:32)
[2018-03-13] MEDS: Aspirin Enteric Coated 81 MG Tablet PO SCH (07:58)
[2018-03-13] MEDS: Nystatin POWDER 30 GM BOTTLE TP SCH ×2 (08:00→22:31)
[2018-03-13] MEDS: Budesonide/Formoterol 160/4.5 1 PUFF INH IH SCH ×2 (10:48→20:25)
[2018-03-13] MEDS: Tiotropium 18 MCG inhalation IH SCH (10:48)
--- NOTE | 2018-03-13 11:49 | Internal Med Progress Note ---
Hospitalist Progress Note - Encounter Date of Encounter: 03/13/18 Time of Encounter: 11:44 - Subjective Interval History: Patient seen and examined this morning at bedside. No any chest pain, abdominal pain, back pain, difficulty breathing, nausea vomiting or diarrhea. No fever or chills. Wants to eat. - Exam Vitals: Temp Pulse Resp BP Pulse Ox 98.7 F 63 16 105/52 95 03/13/18 11:40 03/13/18 11:40 03/13/18 11:40 03/13/18 11:40 03/13/18 11:40 Exam: General: In no acute distress. Conversant. Obese. Respiratory exam: CTAB. no accessory muscle use, rales, rhonchi, wheezes Cardiovascular exam: RRR, +S1, +S2. no murmur, gallop, rubs. LT IJ dialysis catheter. GI/Abdominal exam: Non-tender, Non-distended, normal bowel sounds, soft, no peritoneal signs. Extremities exam: full ROM, no pedal edema, warm, pulses palpable in b/l lower extremities. no calf tenderness Neurological exam: CN II-XII intact, AO X3, no focal deficits. no pronater drift, facial droop, speech deficit - Assessment and Plan (1) Obesity Current Visit: No Status: Chronic (2) Sepsis Current Visit: Yes Status: Resolved (3) Hyponatremia Current Visit: No Status: Acute (4) CAD (coronary artery disease) Current Visit: Yes Status: Chronic (5) ESRD (end stage renal disease) on dialysis Current Visit: Yes Status: Chronic (6) CRBSI (catheter-related bloodstream infection) Current Visit: Yes Status: Resolved (7) Degenerative joint disease of right hip Current Visit: Yes Status: Chronic (8) Type 2 diabetes mellitus Current Visit: Yes Status: Chronic (9) Hypertensive renal disease with renal failure Current Visit: Yes Status: Chronic (10) COPD (chronic obstructive pulmonary disease) Current Visit: Yes Status: Chronic (11) Hyperlipidemia Current Visit: Yes Status: Chronic (12) Sacral decubitus ulcer Current Visit: Yes Status: Chronic (13) CHF (congestive heart failure) Current Visit: Yes Status: Chronic - Summary of Assessment and Plan Summary of Assessment and Plan: Sepsis - secondary to bacteremia from CLABSI from HD cath. Now catheter removed. Temp IJ placed but did not function well. replaced by IR and got dialysed yesterday. - IR needs Blood cultures reported to be negative on final report to place permacath. Will be on thursday. Will start her on diet. - c/w vancomycin with HD per ID recommendations - Blood cultures grew Enterococcus fecali, MRSA. Repeat blood culture 03/08 NGTD, pending final report. Degenerative joint disease of right hip - s/p CT-guided arthrocentesis. Unable to get enough volume. Gram stain negativ e, culture is negative. Low index of suspicion of septic arthritis per ID. - pain control with norco 5-325mg/PO Q6HR PRN. Type 2 diabetes mellitus - c/w sliding scale and accuchecks. carb and renal controlled diet. Hypertensive renal disease with renal failure - Bp well controlled - c/w current regimen COPD - not acutely exacerbated. - c/w duonebs prn, and Symbicort and Spiriva. CAD - c/w aspirin , ranolazine ESRD - Nephrology following for HD - c/w metolazone and furosemide. Sacral decubitus ulcer - not infected - wound care following diastolic CHF - fluids restriction to 1.5 litters a day. daily weight. - c/w furosemide and metolazone DVT Prophylaxis: - SC heparin - Time Spent with Patient Total time spent is greater than 50% in coordination of care (as documented) at patient's floor/unit and/or counseling patient: Internal Medicine: Result - Labs CBC & Chem 7: 03/13/18 04:14 03/13/18 04:14 Labs: Short CBC 03/13/18 Range/Units 04:14 WBC 9.5 (4.3-11.1) K/mcL Hgb 10.3 L (11.5-15.4) g/dL Hct 32.4 L (35.3-44.9) % Plt Count 264 (140-400) K/mcL BMP 03/13/18 04:14 Sodium 133 L Potassium 3.7 Chloride 97 L Carbon Dioxide 25 BUN 38 H Creatinine 3.53 H Glucose 119 H Calcium 9.5 - ABG Interpretation ABG results: PT/INR, D-dimer PT 12.1 Seconds (9.4-12.1) 03/02/18 07:55 - Impressions Impressions Catheter Change 03/12/18 11:24 IMPRESSION: Successful exchange of a temporary dialysis catheter D/ / Ector Nogueira MD / Ector Nogueira MD Interpreting Provider: Ector Nogueira MD Chest X-Ray 03/12/18 15:14 IMPRESSION: Appropriate left IJ approach central venous catheter positioning. Possible small right pleural effusion.. D/ / Henrik Reyes / Henrik Reyes Interpreting Provider: Henrik Reyes Consult Discharge Plan - Plan Referrals: Jay Valenzuela DO [Primary Care Provider] - (office will call patient for an appointment when there is available time sooner) (1) Obesity Qualifiers: Obesity type: unspecified obesity type Obesity classification: adult class 3 (BMI >= 40) Serious obesity comorbidity presence: with serious comorbidity Body mass index: BMI 45.0-49.9 Qualified Code(s): E66.01 - Morbid (severe) obesity due to excess calories; Z68.42 - Body mass index (BMI) 45.0-49.9, adult (2) Sepsis Qualifiers: Sepsis type: methicillin resistant Staphylococcus aureus Qualified Code(s): A41.02 - Sepsis due to Methicillin resistant Staphylococcus aureus (4) CAD (coronary artery disease) Qualifiers: Coronary Disease-Associated Artery/Lesion type: unspecified vessel or lesion type [place] vs. transplanted heart: unspecified whether [place] or transplanted heart Associated angina: angina presence unspecified Qualified Code(s): I25.10 - Atherosclerotic heart disease of [place] coronary artery without angina pectoris (6) CRBSI (catheter-related bloodstream infection) Qualifiers: Qualified Code(s): T80.211A - Bloodstream infection due to central venous catheter, initial encounter (7) Degenerative joint disease of right hip Qualifiers: Osteoarthritis type: unspecified Qualified Code(s): M16.11 - Unilateral primary osteoarthritis, right hip (8) Type 2 diabetes mellitus Qualifiers: Diabetes mellitus termite helper insulin use: with termite helper use Diabetes mellitus complication status: with kidney complications Diabetes mellitus complication detail: with chronic kidney disease Chronic kidney disease stage: on chronic dialysis Qualified Code(s): E11.22 - Type 2 diabetes mellitus with diabetic chronic kidney disease; N18.6 - End stage renal disease; Z79.4 - long term care pharmacist (current) use of insulin; Z99.2 - Dependence on renal dialysis (10) COPD (chronic obstructive pulmonary disease) Qualifiers: COPD type: unspecified COPD Qualified Code(s): J44.9 - Chronic obstructive pulmonary disease, unspecified (11) Hyperlipidemia Qualifiers: Hyperlipidemia type: unspecified Qualified Code(s): E78.5 - Hyperlipidemia, unspecified (12) Sacral decubitus ulcer Qualifiers: Pressure injury stage: stage 1 Qualified Code(s): L89.151 - Pressure ulcer of sacral region, stage 1 (13) CHF (congestive heart failure) Qualifiers: Heart failure type: unspecified Heart failure chronicity: chronic Qualified Code(s): I50.9 - Heart failure, unspecified
--- NOTE | 2018-03-13 15:18 | Nephrology Progress Note ---
Date of Encounter: 03/13/18 Time of Encounter: 12:00 - Assessment and Plan (1) ESRD (end stage renal disease) on dialysis Current Visit: Yes Status: Chronic s/p HD yesterday. Next planned for thursday Will also plan for permcath on thursday with IR as well (2) Osteoarthritis of right hip Current Visit: Yes Status: Acute Qualifiers: Osteoarthritis type: unspecified Qualified Code(s): M16.11 - Unilateral primary osteoarthritis, right hip (3) Hyponatremia Current Visit: Yes Status: Resolved (4) CRBSI (catheter-related bloodstream infection) Current Visit: Yes Status: Resolved Qualifiers: Qualified Code(s): T80.211A - Bloodstream infection due to central venous catheter, initial encounter Subjective Principal diagnosis: right hip pain Interval history: Pt seen and examined with no complaints s/p HD yesterday after her temp HD line changed again by IR (pervious line did not for for HD) Objective - Vital Signs Vital signs: Vital Signs Temp Pulse Resp BP Pulse Ox 03/13/18 11:40 98.7 F 63 16 105/52 95 03/13/18 10:49 16 94 03/13/18 07:43 98.4 F 65 16 163/56 94 03/13/18 05:04 97.6 F 60 16 131/54 94 03/13/18 01:01 97.8 F 58 17 114/60 95 03/12/18 22:08 17 97 03/12/18 20:48 98.6 F 62 18 148/74 97 03/12/18 20:00 97.9 F 18 169/84 03/12/18 19:40 152/79 03/12/18 19:25 146/78 03/12/18 19:10 143/62 03/12/18 18:55 152/75 03/12/18 18:40 164/73 03/12/18 18:25 150/74 03/12/18 18:10 150/73 03/12/18 17:55 157/75 03/12/18 17:40 175/81 03/12/18 17:25 185/83 03/12/18 17:10 188/79 03/12/18 16:55 188/81 03/12/18 16:40 97.6 F 20 190/77 Intake and Output 0103/13/18 03/13/18 23:59 07:59 15:59 Intake Total 840 / 840 Output Total 3600 / 3600 Balance -2760 / -2760 Intake: Oral 240 / 240 Intake, Rinseback and Flushes 600 / 600 Output: Urine 0 / 0 Total Dialysis (HD) Output 3600 / 3600 Other: Weight 111.8 kg Blood Glucose* 113 105 128 Hemodialysis Net Fluid Removed 3000 (mL) - Lab 03/13/18 04:14 03/13/18 04:14 Most recent lab results Calcium 9.5 mg/dL (8.6-10.3) 03/13/18 04:14 Urine Sodium 25.9 mEq/L 03/08/18 16:40 Consult Discharge Plan - Plan Referrals: Jay Valenzuela DO [Primary Care Provider] - (office will call patient for an appointment when there is available time sooner)
[2018-03-13] MEDS: risperiDONE 1 MG TABLET PO SCH (22:32)
[2018-03-13] MEDS: traZODone 50 MG TABLET PO SCH (22:32)
[2018-03-13] MEDS: Famotidine 20 MG TABLET PO SCH (22:32)
[2018-03-14 04:17] LABS: Hematocrit 31.7 % (35.3-44.9); Hemoglobin 10.1 g/dL (11.5-15.4); Mean Corpuscular HGB Conc 31.9 g/dL (31.6-35.5); Mean Corpuscular Hemoglobin 27.6 pg (28.0-33.3); Mean Corpuscular Volume 86.6 fL (83.0-100.0); Mean Platelet Volume 8.8 fL (9.4-12.4); Platelet Count 285 K/mcL (140-400); Red Blood Count 3.66 M/mcL (3.82-4.97); Red Cell Distribution Width 15.2 % (11.5-14.5)
[2018-03-14 04:36] LABS: Calcium 9.3 mg/dL (8.6-10.3)
[2018-03-14] MEDS: *HR* Heparin 5,000 UNIT/ML VIAL SQ SCH ×2 (06:13→17:03)
[2018-03-14] MEDS: Fenofibrate 54 MG TABLET PO SCH (08:19)
[2018-03-14] MEDS: Aspirin Enteric Coated 81 MG Tablet PO SCH (08:19)
[2018-03-14] MEDS: Ranolazine 500 MG TAB.ER.12H PO SCH ×2 (08:19→21:32)
[2018-03-14] MEDS: Insulin LISPRO 300 UNITS/3 ML VIAL SQ SCH ×4 (08:19→21:32)
[2018-03-14] MEDS: ALPRAZolam 1 MG TABLET PO SCH ×2 (08:20→21:32)
[2018-03-14] MEDS: metOLazone 5 MG TABLET PO SCH (08:20)
[2018-03-14] MEDS: Furosemide 20 MG TABLET PO SCH (08:20)
[2018-03-14] MEDS: hydrALAZINE 25 MG TABLET PO SCH ×3 (08:21→21:32)
[2018-03-14] MEDS: cloNIDine HCl 0.1 MG TABLET PO SCH ×3 (08:21→21:31)
[2018-03-14] MEDS: Nystatin POWDER 30 GM BOTTLE TP SCH ×2 (08:22→21:33)
[2018-03-14] MEDS: NIFEdipine XL (24 HR) 30 MG TAB.ER.24 PO SCH (08:25)
[2018-03-14] MEDS: Budesonide/Formoterol 160/4.5 1 PUFF INH IH SCH ×2 (09:08→19:50)
[2018-03-14] MEDS: Tiotropium 18 MCG inhalation IH SCH (09:09)
--- NOTE | 2018-03-14 11:38 | Nephrology Progress Note ---
Date of Encounter: 03/14/18 Time of Encounter: 12:00 - Assessment and Plan (1) ESRD (end stage renal disease) on dialysis Current Visit: Yes Status: Chronic Next HD planned tomorrow Will also plan for IR to place permcath tomorrow Continue renal diet (2) CRBSI (catheter-related bloodstream infection) Current Visit: Yes Status: Resolved Final blood cultures from 03/08/18 negative Continue abx per ID and primary team Qualifiers: Qualified Code(s): T80.211A - Bloodstream infection due to central venous catheter, initial encounter (3) Hyponatremia Current Visit: Yes Status: Resolved Sodium fluctuating at 130 but essentially due to fluid shifts with ESRD, will monitor (4) Osteoarthritis of right hip Current Visit: Yes Status: Acute Qualifiers: Osteoarthritis type: unspecified Qualified Code(s): M16.11 - Unilateral primary osteoarthritis, right hip Subjective Principal diagnosis: right hip pain Interval history: Pt seen and examined with no complaints, eager to go home which is not possible with a temp HD catheter at this point. Objective - Vital Signs Vital signs: Vital Signs Temp Pulse Resp BP Pulse Ox 03/14/18 11:26 98.3 F 62 16 132/73 95 03/14/18 09:07 98 03/14/18 07:32 98.6 F 65 17 145/74 95 03/14/18 05:37 97.7 F 65 12 118/70 94 03/13/18 23:47 99.2 F 65 12 121/51 90 03/13/18 20:35 95 03/13/18 20:25 16 96 03/13/18 19:03 98.6 F 66 14 113/66 95 03/13/18 16:47 98.0 F 66 16 109/62 97 03/13/18 11:40 98.7 F 63 16 105/52 95 Intake and Output 03/13/18 03/14/18 03/14/18 23:59 07:59 15:59 Intake Total 240 / 240 Balance 240 / 240 Intake: Oral 240 / 240 Other: Meal Breakfast Percent of Meal Consumed 30% Stool Size Large Stool Consistency formed Stool Color Brown # Voids 1 # Bowel Movements 1 Weight 105.6 kg Blood Glucose* 260 106 147 Patient Weight 03/14/18 23:59 Weight 105.6 kg - Lab 03/14/18 04:00 03/14/18 04:05 Most recent lab results Calcium 9.3 mg/dL (8.6-10.3) 03/14/18 04:05 Urine Sodium 25.9 mEq/L 03/08/18 16:40 Consult Discharge Plan - Plan Referrals: Jay Valenzuela DO [Primary Care Provider] - (office will call patient for an appointment when there is available time sooner)
--- NOTE | 2018-03-14 18:47 | Internal Med Progress Note ---
Hospitalist Progress Note - Encounter Date of Encounter: 03/14/18 Time of Encounter: 15:00 - Subjective Interval History: SUBJECTIVE: The patient feels pretty good today. The last hemodialysis happened the day before yesterday. She will have next 1 on Thursday (tomorrow). Denies chest pain and difficulty breathing. Denies coughing and wheezing. She is on room air oxygen. Denies abdominal pain, nausea and vomiting. OBJECTIVE: Skin: Free of rash and discoloration. ENMT: Oral/pharyngeal mucosa is normal in appearance. Eyes: Sclera is white. There is no discharge from eyes. Respiratory: Normal breath sounds; no crackles or wheezes. CV: Heart is regular; no gallop or murmur. GI: Abdomen is soft and not tender. There is no palpable mass or visceromegaly. Neuro: There is no focal deficits. ADDITIONAL DATA: 03/08/18: 2 of 2 blood cultures are not growing any organisms. FINAL REPORTS. 03/04/18: 2 of 2 blood cultures are growing Enterococcus faecalis. 03/04/18: Culture of hemodialysis catheter tip is growing MRSA and Enterococcus faecalis. 03/02/18: 2 of 2 blood cultures are growing Enterococcus faecalis. ASSESSMENT AND PLAN: Catheter related bloodstream infection/bacteremia. Infectious disease is consulted. The patient is on IV vancomycin. She is using temporary hemodialysis catheter. It will be replaced by a permanent one tomorrow. Then, we will likely discharge her hometo be discussed with infectious diseases. Severe degenerative joint disease of right hip. She gets when necessary Hart. 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 On diabetic diet and when necessary Humalog. On clonidine, Coreg and hydralazine. COPD. Without exacerbation. To continue Spiriva and Symbicort. Continue when necessary nebulizer treatments with albuterol. The patient will be getting IV vancomycin at hemodialysis. - Exam Vitals: Temp Pulse Resp BP Pulse Ox 97.4 F L 56 18 134/68 98 03/14/18 16:10 03/14/18 16:10 03/14/18 16:10 03/14/18 16:10 03/14/18 16:10 Exam: xx - Assessment and Plan (1) CRBSI (catheter-related bloodstream infection) Current Visit: Yes Status: Resolved (2) Degenerative joint disease of right hip Current Visit: Yes Status: Chronic (3) Type 2 diabetes mellitus Current Visit: Yes Status: Chronic (4) Hypertensive renal disease with renal failure Current Visit: Yes Status: Chronic (5) COPD (chronic obstructive pulmonary disease) Current Visit: Yes Status: Chronic (6) Sepsis Current Visit: Yes Status: Resolved (7) Hyponatremia Current Visit: No Status: Acute (8) CAD (coronary artery disease) Current Visit: Yes Status: Chronic (9) ESRD (end stage renal disease) on dialysis Current Visit: Yes Status: Chronic (10) Sacral decubitus ulcer Current Visit: Yes Status: Chronic - Time Spent with Patient Total time spent is greater than 50% in coordination of care (as documented) at patient's floor/unit and/or counseling patient: 25 - 35 minutes Plan of Care Discussed with: patient Internal Medicine: Result - Labs CBC & Chem 7: 03/14/18 04:00 03/14/18 04:05 Labs: Short CBC 03/14/18 Range/Units 04:00 WBC 12.6 H (4.3-11.1) K/mcL Hgb 10.1 L (11.5-15.4) g/dL Hct 31.7 L (35.3-44.9) % Plt Count 285 (140-400) K/mcL BMP 03/14/18 04:05 Sodium 130 L Potassium 4.0 Chloride 94 L Carbon Dioxide 25 BUN 63 H Creatinine 5.49 H Glucose 115 H Calcium 9.3 - ABG Interpretation ABG results: PT/INR, D-dimer PT 12.1 Seconds (9.4-12.1) 03/02/18 07:55 Consult Discharge Plan - Plan Referrals: Jay Valenzuela DO [Primary Care Provider] - (office will call patient for an appointment when there is available time sooner) (1) CRBSI (catheter-related bloodstream infection) Qualifiers: Qualified Code(s): T80.211A - Bloodstream infection due to central venous c atheter, initial encounter (2) Degenerative joint disease of right hip Qualifiers: Osteoarthritis type: unspecified Qualified Code(s): M16.11 - Unilateral primary osteoarthritis, right hip (3) Type 2 diabetes mellitus Qualifiers: Diabetes mellitus detention insulin use: with detention use Diabetes mellitus complication status: with kidney complications Diabetes mellitus complication detail: with chronic kidney disease Chronic kidney disease stage: on chronic dialysis Qualified Code(s): E11.22 - Type 2 diabetes mellitus with diabetic chronic kidney disease; N18.6 - End stage renal disease; 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 transplanted heart: unspecified whether [place] or transplanted heart Associated angina: angina presence unspecified Qualified Code(s): I25.10 - Atherosclerotic heart disease of [place] coronary artery without angina pectoris (10) Sacral decubitus ulcer Qualifiers: Pressure injury stage: stage 1 Qualified Code(s): L89.151 - Pressure ulcer of sacral region, stage 1
[2018-03-14] MEDS: risperiDONE 1 MG TABLET PO SCH (21:31)
[2018-03-14] MEDS: traZODone 50 MG TABLET PO SCH (21:32)
[2018-03-14] MEDS: Famotidine 20 MG TABLET PO SCH (21:32)
[2018-03-15 04:40] LABS: Hematocrit 32.8 % (35.3-44.9); Hemoglobin 10.6 g/dL (11.5-15.4); Immature Platelets 1.3 % (1.1-6.1); Mean Corpuscular HGB Conc 32.3 g/dL (31.6-35.5); Mean Corpuscular Volume 86.5 fL (83.0-100.0); Mean Platelet Volume 8.9 fL (9.4-12.4); Red Blood Count 3.79 M/mcL (3.82-4.97); Red Cell Distribution Width 15.2 % (11.5-14.5)
[2018-03-15 04:55] LABS: Calcium 9.6 mg/dL (8.6-10.3)
[2018-03-15] MEDS: *HR* Heparin 5,000 UNIT/ML VIAL SQ SCH ×2 (05:28→17:52)
[2018-03-15] MEDS: Insulin LISPRO 300 UNITS/3 ML VIAL SQ SCH ×4 (07:31→20:46)
[2018-03-15] MEDS: Budesonide/Formoterol 160/4.5 1 PUFF INH IH SCH ×2 (07:57→20:11)
[2018-03-15] MEDS: Tiotropium 18 MCG inhalation IH SCH (07:57)
[2018-03-15] MEDS: cloNIDine HCl 0.1 MG TABLET PO SCH ×3 (09:00→20:43)
[2018-03-15] MEDS: hydrALAZINE 25 MG TABLET PO SCH ×3 (09:00→20:44)
--- NOTE | 2018-03-15 11:46 | Nephrology Progress Note ---
Date of Encounter: 03/15/18 Time of Encounter: 11:43 - Assessment and Plan (1) ESRD (end stage renal disease) on dialysis Current Visit: Yes Status: Chronic Permacath ordered for today. Patient may go from a renal standpoint and get HD outpatient tomorrow as her usual regimen is TTS. Continue renal diet (2) Osteoarthritis of right hip Current Visit: Yes Status: Acute per primary team Qualifiers: Osteoarthritis type: unspecified Qualified Code(s): M16.11 - Unilateral primary osteoarthritis, right hip (3) Hyponatremia Current Visit: Yes Status: Resolved Sodium fluctuating at 130 but essentially due to fluid shifts with ESRD, will monitor (4) CRBSI (catheter-related bloodstream infection) Current Visit: Yes Status: Resolved Final blood cultures from 03/08/18 negative Continue abx per ID and primary team Qualifiers: Qualified Code(s): T80.211A - Bloodstream infection due to central venous catheter, initial encounter Subjective Principal diagnosis: right hip pain Interval history: Pt seen and examined, is sitting up in bed. Feeling well. Denies any chest pain or shortness of breath. Denies nausea, vomiting, or diarrhea. No acute events overnight. Objective - Vital Signs Vital signs: Vital Signs Temp Pulse Resp BP Pulse Ox 03/15/18 10:58 97.4 F L 58 18 148/58 95 03/15/18 06:41 97.4 F L 60 17 126/70 95 03/15/18 04:34 97.6 F 62 15 106/66 95 03/14/18 23:39 98.6 F 60 15 122/66 95 03/14/18 21:57 97 03/14/18 20:22 97.9 F 61 17 148/57 97 03/14/18 19:50 16 98 03/14/18 16:10 97.4 F L 56 18 134/68 98 Intake and Output 03/14/18 03/15/18 03/15/18 23:59 07:59 15:59 Intake Total 440 / 440 0 / 0 Output Total 400 / 400 0 / 0 Balance 40 / 40 0 / 0 Intake: IV Fluids 200 / 200 Oral 240 / 240 0 / 0 Output: Urine 400 / 400 0 / 0 Other: Meal Dinner Percent of Meal Consumed 90% Weight 108.2 kg Blood Glucose* 231 112 148 - General Appearance General appearance: Present: well-developed, well-nourished EENT: Present: ATNC, hearing intact, vision intact Neck: Present: supple Respiratory: Present: clear Cardiology: Present: no edema, normal S1, normal S2 Dialysis Vascular Access: Venous Catheter (Temp line DRSG C/D/I) Gastrointestinal: Present: normoactive bowel sounds, no tenderness, no guarding Integumentary: Present: no rash, warm and dry Neurologic: Present: alert and oriented x3 Musculoskeletal: Present: no deformities, no erythema Psychiatric: Present: mood/affect appropriate, cooperative - Lab 03/15/18 04:18 03/15/18 04:18 Most recent lab results Calcium 9.6 mg/dL (8.6-10.3) 03/15/18 04:18 Urine Sodium 25.9 mEq/L 03/08/18 16:40 Consult Discharge Plan - Plan Referrals: Jay Valenzuela DO [Primary Care Provider] - (office will call patient for an appointment when there is available time sooner)
[2018-03-15] MEDS ORDERED: Heparin 1,000 UNITS/500 mL 500 ML ONE (14:28)
[2018-03-15] MEDS ORDERED: CeFAZolin Premix DUPLEX 2,000 MG/50 ML BAG IVPB ONE ×2 (14:30→14:50)
[2018-03-15] MEDS ORDERED: *HR* FentaNYL (PF) 100 MCG/2 ML VIAL IVP ONE (14:30)
[2018-03-15] MEDS ORDERED: *HR* Midazolam HCl 2 MG/2 ML VIAL IVP ONE (14:30)
[2018-03-15] MEDS ORDERED: 0.9 % Sodium Chloride 500 ML ONE (14:38)
--- NOTE | 2018-03-15 14:42 | Infectious Disease Progress No ---
Date of Encounter: 03/15/18 Time of Encounter: 12:15 - Assessment and Plan (1) Sepsis Current Visit: Yes Status: Resolved Patient had 2 sepsis criteria on admission. Likely secondary to bacteremia. White blood cell count normal this morning. Afebrile overnight. Blood cultures drawn 03/02/18 are +2 out of 2 sets for enterococcus faecalis, AmpS. Repeat blood cultures drawn 03/04/18 (one from peripheral and one centrally) are positive 2/2. Additional peripheral cultures drawn 03/08/18 are negative x 2 sets. Recommendations: Continue to trend WBC. Temporary HD catheter placed 03/11/18 per IR. [place] to place perma-cath from and ID perspective. Continue Vancomycin IV for ease of dosing as an outpatient since it can be given at HD. Pharmacy to dose. Goal trough ~15. Duration of treatment depends on the clinical picture, likely a total of 2 weeks from site of negative blood cultures. Treat through 03/21/18. Monitor renal function and for drug toxicity and dose-adjust antibiotics. Qualifiers: Sepsis type: methicillin resistant Staphylococcus aureus Qualified Code(s): A41.02 - Sepsis due to Methicillin resistant Staphylococcus aureus (2) Bacteremia Current Visit: No Status: Acute Causative organism: Enterococcus faecalis, AmpS and MRSA. Source: likely the HD catheter. Blood cultures drawn 03/02/18 are positive 2/2 sets (peripheral) for Enterococcus faecalis. Repeat blood cultures drawn 03/04/18 are positive 2/2 (one central and one peripheral). Repeat blood cultures drawn 03/08/18 are negative x 2 sets. HD catheter tip culture is positive for MRSA and E. faecalis. No endocarditis stigmata noted on exam. The patient has one major and one minor Modified Barron's criteria. Currently on Vanc. (3) CLABSI (central line-associated bloodstream infection) Current Visit: Yes Status: Acute Qualifiers: Encounter type: initial encounter Qualified Code(s): T80.211A - Bloodstream infection due to central venous catheter, initial encounter (4) Osteoarthritis of right hip Current Visit: Yes Status: Acute CT of the right hip showed no acute fracture or dislocation with minimal degenerative changes at the right hip joint space. Status post CT-guided arthrocentesis 03/02/18 by IR. 1ml clear fluid aspirated. Unable to do cell count do to volume of the fluid. Gram stain negative, culture is negative. Low index of suspicion of septic arthritis (either seeding or source of bacteremia). Pain management per the primary team. Qualifiers: Osteoarthritis type: unspecified Qualified Code(s): M16.11 - Unilateral primary osteoarthritis, right hip (5) Hyponatremia Current Visit: Yes Status: Resolved Nephrology consulted and following. (6) Constipation Current Visit: No Status: Resolved Resolved. Bowel regimen per the primary team. Qualifiers: Constipation type: unspecified constipation type Qualified Code(s): K59.00 - Constipation, unspecified (7) CAD (coronary artery disease) Current Visit: No Status: Chronic Qualifiers: Coronary Disease-Associated Artery/Lesion type: [place] artery [place] vs. transplanted heart: [place] heart Associated angina: without angina Qualified Code(s): I25.10 - Atherosclerotic heart disease of [place] coronary artery without angina pectoris (8) Obesity Current Visit: No Status: Chronic Qualifiers: Obesity type: unspecified obesity type Obesity classification: adult class 3 (BMI >= 40) Serious obesity comorbidity presence: with serious comorbidity Body mass index: BMI 45.0-49.9 Qualified Code(s): E66.01 - Morbid (severe) obesity due to excess calories; Z68.42 - Body mass index (BMI) 45.0-49.9, adult (9) Diabetes mellitus Current Visit: No Status: Chronic Qualifiers: Diabetes mellitus type: type 2 Diabetes mellitus interdisciplinary professor insulin use: with residential use Diabetes mellitus complication status: with kidney complications Diabetes mellitus complication detail: with chronic kidney disease Chronic kidney disease stage: stage 4 (severe) Qualified Code(s): E11.22 - Type 2 diabetes mellitus with diabetic chronic kidney disease; N18.4 - Chronic kidney disease, stage 4 (severe); Z79.4 - patient centered care specialist (current) use of insulin (10) COPD (chronic obstructive pulmonary disease) Current Visit: Yes Status: Acute Qualifiers: COPD type: unspecified COPD Qualified Code(s): J44.9 - Chronic obstructive pulmonary disease, unspecified (11) CCF (congestive cardiac failure) Current Visit: Yes Status: Acute Qualifiers: Heart failure type: diastolic Heart failure chronicity: unspecified Qualified Code(s): I50.30 - Unspecified diastolic (congestive) heart failure (12) ESRD (end stage renal disease) on dialysis Current Visit: Yes Status: Chronic Nephrology consulted and following. (13) Back pain Current Visit: Yes Status: Resolved Etiology unclear. CT of the L-spine, abdomen, and pelvis negative for acute abnormality. Pain management per the primary team. Qualifiers: Back pain location: low back pain Chronicity: acute Back pain laterality: midline Sciatica presence: unspecified whether sciatica present Qualified Code(s): M54.5 - Low back pain (14) Sacral ulcer Current Visit: Yes Status: Acute Location: Left buttock. Clinically does not appear infected. Wound care consulted and following. 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 Patient seen and examined. No acute events noted overnight. Status post temporary HD catheter placement 03/11/18 by IR. Plans for Perma-cath later today. Denies fevers, chills, or rigors. Denies chest pain, shortness of breath, or cough. Denies nausea, vomiting, diarrhea, or constipation. Last BM was yesterday. She denies abdominal pain or urinary complaints. She denies any joint, back, or extremity pain. She denies any oral thrush. She has developed a pressure ulcer to the left buttock. Status post HD line exchange 03/04/18 and HD line removal 03/08/18. Infect Dis PN-Objective Data - Labs CBC & Chem 7: 03/15/18 04:18 03/15/18 04:18 Labs: Laboratory Results - last 24 hr 03/13/18 03/13/18 03/14/18 16:45 20:02 07:30 WBC RBC Hgb Hct MCV MCH MCHC RDW Plt Count MPV Immature Plt Fraction Sodium Potassium Chloride Carbon Dioxide BUN Creatinine Est GFR ( Amer) Est GFR (Non-Af Amer) BUN/Creatinine Ratio Glucose POC Glucose 147 H 260 H 106 H Calculated Osmolality Calcium Random Vancomycin 03/14/18 03/15/18 03/15/18 11:24 04:18 04:18 WBC 12.8 H RBC 3.79 L Hgb 10.6 L Hct 32.8 L MCV 86.5 MCH 28.0 MCHC 32.3 RDW 15.2 H Plt Count 384 MPV 8.9 L Immature Plt Fraction 1.3 Sodium 129 L Potassium 4.0 Chloride 92 L Carbon Dioxide 25 BUN 76 H Creatinine 6.06 H Est GFR ( Amer) 8 L Est GFR (Non-Af Amer) 7 L BUN/Creatinine Ratio 13 Glucose 108 H POC Glucose 147 H Calculated Osmolality 291 Calcium 9.6 Random Vancomycin 03/15/18 03/15/18 04:18 06:40 WBC RBC Hgb Hct MCV MCH MCHC RDW Plt Count MPV Immature Plt Fraction Sodium Potassium Chloride Carbon Dioxide BUN Creatinine Est GFR ( Amer) Est GFR (Non-Af Amer) BUN/Creatinine Ratio Glucose POC Glucose 112 H Calculated Osmolality Calcium Random Vancomycin 16 Cultures: Cultures 03/08/18 10:55 Blood Culture - Final Peripheral Venipuncture No growth. Final report. 03/08/18 11:06 Blood Culture - Final Peripheral Venipuncture No growth. Final report. 03/04/18 10:40 Blood Culture - Final Central Venous Catheter Enterococcus faecalis 03/04/18 14:00 Catheter Tip Culture - Final Intravenous or Arterial Cath Methicillin Resistant S.aureus Enterococcus faecalis 03/04/18 10:50 Blood Culture - Final Peripheral Venipuncture Enterococcus faecalis 03/02/18 14:47 Body Fluid Culture - Final Synovial Fluid 03/02/18 07:50 Blood Culture - Final Peripheral Venipuncture Enterococcus faecalis 03/02/18 07:55 Blood Culture - Final Peripheral Venipuncture Enterococcus faecalis 03/02/18 07:25 Urine Culture - Final Urine,Clean Catch Serology 03/08/18 03/08/18 03/04/18 Range/Units 16:40 16:40 10:50 Urine Color (Yellow) Urine Clarity (Clear) Urine pH (5.0-8.0) pH Units Ur Specific [place] (1.010-1.025) Urine Protein (Neg-Trace) mg/dL Urine Glucose (UA) (Normal) mg/dL Urine Ketones (Negative) mg/dL Urine Blood (Negative) Urine Nitrite (Negative) Urine Bilirubin (Negative) Urine Urobilinogen (Normal) mg/dL Ur Leukocyte Esterase (Negative) Urine Microscopic RBC (0-3) per hpf Urine Microscopic WBC (0-3) per hpf Ur Squamous Epith Cells (None-Few) per lpf Ur Transition Epith Cell (None-Few) per hpf Ur Renal Epithelial Cell (None-Few) per hpf Urine Bacteria (None-Few) per hpf Hyaline Casts (None-Few) per lpf Urine Yeast (None Seen) per hpf Ur Culture Indicated? (NO) Urine Osmolality 255 L (300-1090) mOsm/kg Urine Sodium 25.9 mEq/L Synovial Source Synovial Color (Straw) Synovial Appearance (Clear-Hazy) Synovial Volume mL Synovial RBC Synovial Tot Nuc Cell Synovial Band Neuts Synovial Basophils Synovial Eosinophils Synovial Seg Neuts % Synovial Lymphocytes % Synovial Monocytes % Synovial Other Cells % A. baumannii (PCR) Not Detected (Not Detect) Kerry albicans (PCR) Not Detected (Not Detect) C. glabrata (PCR) Not Detected (Not Detect) C. krusei (PCR) Not Detected (Not Detect) C. parapsilosis (PCR) Not Detected (Not Detect) C. tropicalis (PCR) Not Detected (Not Detect) Enterobacteriac sp PCR Not Detected (Not Detect) E. cloacae complex PCR Not Detected (Not Detect) Enterococcus sp PCR DETECTED A (Not Detect) E. coli (PCR) Not Detected (Not Detect) H. influenzae (PCR) Not Detected (Not Detect) Hep Bs Antigen (Nonreactive) Hep Bs Antibody (10.00 - ) mIU/mL Klebsiella oxytoca PCR Not Detected (Not Detect) Klebsiella pneumoniae Not Detected (Not Detect) List. monocytogenes PCR Not Detected (Not Detect) N. meningitidis (PCR) Not Detected (Not Detect) Proteus species (PCR) Not Detected (Not Detect) Serratia marcescens PCR Not Detected (Not Detect) Staphylococcus sp PCR Not Detected (Not Detect) Staph aureus (PCR) Not Detected (Not Detect) mecA-Methicil Res Gene Not Detected (Not Detect) Streptococcus sp PCR Not Detected (Not Detect) Group A Strep DNA Not Detected (Not Detect) Group B Strep (PCR) Not Detected (Not Detect) Strep pneumoniae (PCR) Not Detected (Not Detect) P. aeruginosa (PCR) Not Detected (Not Detect) Sil/B-Vanco Res Genes Not Detected (Not Detect) KPC (blaKPC) Detect PCR Not Detected (Not Detect) 03/02/18 03/02/18 03/02/18 Range/Units 16:28 14:47 07:55 Urine Color (Yellow) Urine Clarity (Clear) Urine pH (5.0-8.0) pH Units Ur Specific [place] (1.010-1.025) Urine Protein (Neg-Trace) mg/dL Urine Glucose (UA) (Normal) mg/dL Urine Ketones (Negative) mg/dL Urine Blood (Negative) Urine Nitrite (Negative) Urine Bilirubin (Negative) Urine Urobilinogen (Normal) mg/dL Ur Leukocyte Esterase (Negative) Urine Microscopic RBC (0-3) per hpf Urine Microscopic WBC (0-3) per hpf Ur Squamous Epith Cells (None-Few) per lpf Ur Transition Epith Cell (None-Few) per hpf Ur Renal Epithelial Cell (None-Few) per hpf Urine Bacteria (None-Few) per hpf Hyaline Casts (None-Few) per lpf Urine Yeast (None Seen) per hpf Ur Culture Indicated? (NO) Urine Osmolality (300-1090) mOsm/kg Urine Sodium mEq/L Synovial Source right hip Synovial Color Colorless (Straw) Synovial Appearance Clear (Clear-Hazy) Synovial Volume 1.0 mL Synovial RBC TNP Synovial Tot Nuc Cell TNP Synovial Band Neuts TNP Synovial Basophils TNP Synovial Eosinophils TNP Synovial Seg Neuts % TNP Synovial Lymphocytes % TNP Synovial Monocytes % TNP Synovial Other Cells % TNP A. baumannii (PCR) Not Detected (Not Detect) Kerry albicans (PCR) Not Detected (Not Detect) C. glabrata (PCR) Not Detected (Not Detect) C. krusei (PCR) Not Detected (Not Detect) C. parapsilosis (PCR) Not Detected (Not Detect) C. tropicalis (PCR) Not Detected (Not Detect) Enterobacteriac sp PCR Not Detected (Not Detect) E. cloacae complex PCR Not Detected (Not Detect) Enterococcus sp PCR DETECTED A (Not Detect) E. coli (PCR) Not Detected (Not Detect) H. influenzae (PCR) Not Detected (Not Detect) Hep Bs Antigen Nonreactive (Nonreactive) Hep Bs Antibody < 3.10 L (10.00 - ) mIU/mL Klebsiella oxytoca PCR Not Detected (Not Detect) Klebsiella pneumoniae Not Detected (Not Detect) List. monocytogenes PCR Not Detected (Not Detect) N. meningitidis (PCR) Not Detected (Not Detect) Proteus species (PCR) Not Detected (Not Detect) Serratia marcescens PCR Not Detected (Not Detect) Staphylococcus sp PCR Not Detected (Not Detect) Staph aureus (PCR) Not Detected (Not Detect) mecA-Methicil Res Gene N/A (Not Detect) Streptococcus sp PCR Not Detected (Not Detect) Group A Strep DNA Not Detected (Not Detect) Group B Strep (PCR) Not Detected (Not Detect) Strep pneumoniae (PCR) Not Detected (Not Detect) P. aeruginosa (PCR) Not Detected (Not Detect) Sil/B-Vanco Res Genes Not Detected (Not Detect) KPC (blaKPC) Detect PCR N/A (Not Detect) 03/02/18 Range/Units 07:25 Urine Color Yellow (Yellow) Urine Clarity Hazy A (Clear) Urine pH 6.0 (5.0-8.0) pH Units Ur Specific [place] 1.009 L (1.010-1.025) Urine Protein >=300 H (Neg-Trace) mg/dL Urine Glucose (UA) 100 H (Normal) mg/dL Urine Ketones Negative (Negative) mg/dL Urine Blood Negative (Negative) Urine Nitrite Negative (Negative) Urine Bilirubin Negative (Negative) Urine Urobilinogen Normal (Normal) mg/dL Ur Leukocyte Esterase Small H (Negative) Urine Microscopic RBC 0-3 (0-3) per hpf Urine Microscopic WBC 30-50 H (0-3) per hpf Ur Squamous Epith Cells Few (None-Few) per lpf Ur Transition Epith Cell Few (None-Few) per hpf Ur Renal Epithelial Cell Few (None-Few) per hpf Urine Bacteria None Seen (None-Few) per hpf Hyaline Casts None Seen (None-Few) per lpf Urine Yeast Few H (None Seen) per hpf Ur Culture Indicated? YES A (NO) Urine Osmolality (300-1090) mOsm/kg Urine Sodium mEq/L Synovial Source Synovial Color (Straw) Synovial Appearance (Clear-Hazy) Synovial Volume mL Synovial RBC Synovial Tot Nuc Cell Synovial Band Neuts Synovial Basophils Synovial Eosinophils Synovial Seg Neuts % Synovial Lymphocytes % Synovial Monocytes % Synovial Other Cells % A. baumannii (PCR) (Not Detect) Kerry albicans (PCR) (Not Detect) C. glabrata (PCR) (Not Detect) C. krusei (PCR) (Not Detect) C. parapsilosis (PCR) (Not Detect) C. tropicalis (PCR) (Not Detect) Enterobacteriac sp PCR (Not Detect) E. cloacae complex PCR (Not Detect) Enterococcus sp PCR (Not Detect) E. coli (PCR) (Not Detect) H. influenzae (PCR) (Not Detect) Hep Bs Antigen (Nonreactive) Hep Bs Antibody (10.00 - ) mIU/mL Klebsiella oxytoca PCR (Not Detect) Klebsiella pneumoniae (Not Detect) List. monocytogenes PCR (Not Detect) N. meningitidis (PCR) (Not Detect) Proteus species (PCR) (Not Detect) Serratia marcescens PCR (Not Detect) Staphylococcus sp PCR (Not Detect) Staph aureus (PCR) (Not Detect) mecA-Methicil Res Gene (Not Detect) Streptococcus sp PCR (Not Detect) Group A Strep DNA (Not Detect) Group B Strep (PCR) (Not Detect) Strep pneumoniae (PCR) (Not Detect) P. aeruginosa (PCR) (Not Detect) Sil/B-Vanco Res Genes (Not Detect) KPC (blaKPC) Detect PCR (Not Detect) - Impressions Impressions Guidance Ultrasound 03/11/18 00:00 IMPRESSION: Non tunneled left internal jugular dialysis catheter placed with ultrasound and fluoroscopic guidance. D/ / Dani Kitchen MD / Dani Kitchen MD Interpreting Provider: Dani Kitchen MD Insertion Non-Tunneled Catheter 03/11/18 00:00 IMPRESSION: Non tunneled left internal jugular dialysis catheter placed with ultrasound and fluoroscopic guidance. D/ / Dani Kitchen MD / Dani Kitchen MD Interpreting Provider: Dani Kitchen MD Vena Cavagram, [place] 03/11/18 00:00 IMPRESSION: Non tunneled left internal jugular dialysis catheter placed with ultrasound and fluoroscopic guidance. D/ / Dani Kitchen MD / Dani Kitchen MD Interpreting Provider: Dani Kitchen MD Exam - Constitutional Vitals: Temp Pulse Resp BP Pulse Ox 97.4 F L 58 18 148/58 95 03/15/18 10:58 03/15/18 10:58 03/15/18 10:58 03/15/18 10:58 03/15/18 10:58 General appearance: cooperative, no acute distress, obese - Head Head exam: Present: atraumatic, normal inspection, normocephalic - Eye Eye exam: Present: EOMI, normal appearance, PERRL Pupils: Present: normal accommodation - ENT ENT exam: Present: mucous membranes moist - Neck Neck exam: Present: normal inspection Additional comments: Temporary HD catheter noted with transparent dressing C/D/I. - Respiratory Respiratory exam: Present: CTAB. Absent: rales, respiratory distress, rhonchi, wheezes - Cardiovascular Cardiovascular exam: Present: RRR, +S1, +S2 - GI/Abdominal GI/Abdominal exam: Present: distended (obese), normal bowel sounds, soft. Absent: tenderness - Extremities Exam Extremities exam: Absent: normal inspection (Venous stasis dermatitis noted to the RLE.) - Neurological Exam Neurological exam: Present: alert, oriented X3, no focal deficits - Psychiatric Psychiatric exam: Present: normal affect, normal mood - Skin Skin exam: Present: dry, intact, normal color, warm Consult Discharge Plan - Plan Referrals: Jay Valenzuela DO [Primary Care Provider] - (office will call patient for an appointment when there is available time sooner)
[2018-03-15] MEDS ORDERED: *HR* Heparin 5,000 UNIT/ML VIAL ONE (15:14)
--- NOTE | 2018-03-15 15:26 | IR Procedure Note ---
Date of procedure: 03/15/18 Consent Obtained: Verbal consent, Written consent Timeout: Correct patient and procedure verified, Correct site verified, Time out performed, Skin prep completed Local anesthetic: Lidocaine 1% Indications: Renal failure Procedure Performed: HD catheter exchange Was there an medical support assistant present: No Site/Technique: Left IJ HD catheter exchanged for a new tunneled HD catheter Results/Findings: Central right IJ vein is occluded. New HD catheter is functional Estimated blood loss (cc): 2 Complications: None; Tolerated procedure well Post Procedure Treatment Plan: OK to use the HD catheter now Specimen: None
[2018-03-15] MEDS: metOLazone 5 MG TABLET PO SCH (16:00)
[2018-03-15] MEDS: Fenofibrate 54 MG TABLET PO SCH (16:01)
[2018-03-15] MEDS: Ranolazine 500 MG TAB.ER.12H PO SCH ×2 (16:01→20:44)
[2018-03-15] MEDS: Furosemide 20 MG TABLET PO SCH (16:01)
[2018-03-15] MEDS: NIFEdipine XL (24 HR) 30 MG TAB.ER.24 PO SCH (16:01)
[2018-03-15] MEDS: Nystatin POWDER 30 GM BOTTLE TP SCH ×2 (16:02→20:45)
[2018-03-15] MEDS: Aspirin Enteric Coated 81 MG Tablet PO SCH (16:02)
[2018-03-15] MEDS: ALPRAZolam 1 MG TABLET PO SCH ×2 (16:03→20:45)
[2018-03-15] MEDS ORDERED: Vancomycin 500 MG in 0.9 % Sodium Chloride Mini Bag 100 ML IVPB ONE (18:00)
[2018-03-15] MEDS: risperiDONE 1 MG TABLET PO SCH (20:44)
[2018-03-15] MEDS: traZODone 50 MG TABLET PO SCH (20:44)
[2018-03-15] MEDS: Famotidine 20 MG TABLET PO SCH (20:45)
--- NOTE | 2018-03-15 22:43 | Internal Med Progress Note ---
Hospitalist Progress Note - Encounter Date of Encounter: 03/15/18 Time of Encounter: 15:00 - Subjective Interval History: SUBJECTIVE: The patient will have left IJ hemodialysis catheter exchanged for a new tunneled hemodialysis catheter today. She feels good. Denies chest pain and difficulty breathing. She is breathing with room air oxygen. Denies coughing and wheezing. Denies abdominal pain, nausea and vomiting. OBJECTIVE: Skin: Free of rash and discoloration. ENMT: Oral/pharyngeal mucosa is normal in appearance. Eyes: Sclera is white. There is no discharge from eyes. Respiratory: Normal breath sounds; no crackles or wheezes. CV: Heart is regular; no gallop or murmur. GI: Abdomen is soft and not tender. There is no palpable mass or visceromegaly. Neuro: There is no focal deficits. ADDITIONAL DATA: 03/08/18: 2 of 2 blood cultures are not growing any organisms. FINAL REPORTS. 03/04/18: 2 of 2 blood cultures are growing Enterococcus faecalis. 03/04/18: Culture of hemodialysis catheter tip is growing MRSA and Enterococcus faecalis. 03/02/18: 2 of 2 blood cultures are growing Enterococcus faecalis. ASSESSMENT AND PLAN: Catheter related bloodstream infection/bacteremia. Infectious disease is consulted. The patient is on IV vancomycin. Left IJ HD catheter will be exchanged for a new tunneled HD catheter sometime today. Then, the patient will be discharged home. To continue IV vancomycin at hemodialysis through March 22. Severe degenerative joint disease of right hip. She gets when necessary [facility]. 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 On diabetic diet and when necessary Humalog. On clonidine, Coreg and hydralazine. COPD. Without exacerbation. To continue Spiriva and Symbicort. Continue when necessary nebulizer treatments with albuterol. Disposition: Tentative discharge is tomorrowafter hemodialysis. See me, that she will have a new permanent hemodialysis catheter inserted. - Exam Vitals: Temp Pulse Resp BP Pulse Ox 97.8 F 56 16 145/53 97 03/15/18 20:47 03/15/18 20:47 03/15/18 20:47 03/15/18 20:47 03/15/18 20:47 Exam: xx - Assessment and Plan (1) CRBSI (catheter-related bloodstream infection) Current Visit: Yes Status: Resolved (2) Degenerative joint disease of right hip Current Visit: Yes Status: Chronic (3) Type 2 diabetes mellitus Current Visit: Yes Status: Chronic (4) Hypertensive renal disease with renal failure Current Visit: Yes Status: Chronic (5) COPD (chronic obstructive pulmonary disease) Current Visit: Yes Status: Chronic (6) Sepsis Current Visit: Yes Status: Resolved (7) Hyponatremia Current Visit: No Status: Acute (8) CAD (coronary artery disease) Current Visit: Yes Status: Chronic (9) ESRD (end stage renal disease) on dialysis Current Visit: Yes Status: Chronic (10) Sacral decubitus ulcer Current Visit: Yes Status: Chronic - Time Spent with Patient Total time spent is greater than 50% in coordination of care (as documented) at patient's floor/unit and/or counseling patient: 25 - 35 minutes Plan of Care Discussed with: patient Internal Medicine: Result - Labs CBC & Chem 7: 03/15/18 04:18 03/15/18 04:18 Labs: Short CBC 03/15/18 Range/Units 04:18 WBC 12.8 H (4.3-11.1) K/mcL Hgb 10.6 L (11.5-15.4) g/dL Hct 32.8 L (35.3-44.9) % Plt Count 384 (140-400) K/mcL BMP 03/15/18 04:18 Sodium 129 L Potassium 4.0 Chloride 92 L Carbon Dioxide 25 BUN 76 H Creatinine 6.06 H Glucose 108 H Calcium 9.6 - ABG Interpretation ABG results: PT/INR, D-dimer PT 12.1 Seconds (9.4-12.1) 03/02/18 07:55 - Impressions Impressions Guidance Ultrasound 03/11/18 00:00 IMPRESSION: Non tunneled left internal jugular dialysis catheter placed with ultrasound and fluoroscopic guidance. D/ / Dani Kitchen MD / Dani Kitchen MD Interpreting Provider: Dani Kitchen MD Insertion Non-Tunneled Catheter 03/11/18 00:00 IMPRESSION: Non tunneled left internal jugular dialysis catheter placed with ultrasound and fluoroscopic guidance. D/ / Dani Kitchen MD / Dani Kitchen MD Interpreting Provider: Dani Kitchen MD Vena Cavagram, [place] 03/11/18 00:00 IMPRESSION: Non tunneled left internal jugular dialysis catheter placed with ultrasound and fluoroscopic guidance. D/ / Dani Kitchen MD / Dani Kitchen MD Interpreting Provider: Dani Kitchne MD Insertion Tunneled Catheter 03/15/18 00:00 IMPRESSION: 1. Successful exchange of the temporary left IJ hemodialysis catheter for a new tunneled HD catheter, which is functional and ready for use. 2. Occlusion of the right internal jugular vein, which is not adequate for use for central venous access. 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 Diabetes mellitus complication status: with kidney complications Diabetes mellitus complication detail: with chronic kidney disease Chronic kidney disease stage: on chronic dialysis Qualified Code(s): E11.22 - Type 2 diabetes mellitus with diabetic chronic kidney disease; N18.6 - End stage renal disease; 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 transplanted heart: unspecified whether [place] or transplanted heart Associated angina: angina presence unspecified Qualified Code(s): I25.10 - Atherosclerotic heart disease of [place] coronary artery without angina pectoris (10) Sacral decubitus ulcer Qualifiers: Pressure injury stage: stage 1 Qualified Code(s): L89.151 - Pressure ulcer of sacral region, stage 1
[2018-03-16] MEDS: *HR* Heparin 5,000 UNIT/ML VIAL SQ SCH (05:14)
[2018-03-16] MEDS: Budesonide/Formoterol 160/4.5 1 PUFF INH IH SCH (07:26)
[2018-03-16] MEDS: Tiotropium 18 MCG inhalation IH SCH (07:26)
[2018-03-16 07:40] LABS: Hematocrit 32.1 % (35.3-44.9); Hemoglobin 10.1 g/dL (11.5-15.4); Mean Corpuscular HGB Conc 31.5 g/dL (31.6-35.5); Mean Corpuscular Hemoglobin 27.2 pg (28.0-33.3); Mean Corpuscular Volume 86.3 fL (83.0-100.0); Mean Platelet Volume 8.9 fL (9.4-12.4); Platelet Count 250 K/mcL (140-400); Red Blood Count 3.72 M/mcL (3.82-4.97); Red Cell Distribution Width 15.2 % (11.5-14.5)
[2018-03-16 07:51] LABS: Calcium 9.5 mg/dL (8.6-10.3)
[2018-03-16] MEDS: Insulin LISPRO 300 UNITS/3 ML VIAL SQ SCH ×3 (08:23→17:02)
[2018-03-16] MEDS ORDERED: *HR* Heparin 10,000 UNIT/10 ML VIAL IV PRN ×2 (08:26)
[2018-03-16] MEDS ORDERED: 0.9 % Sodium Chloride 250 ML IVC PRN (08:26)
[2018-03-16] MEDS: cloNIDine HCl 0.1 MG TABLET PO SCH ×2 (08:29→15:51)
[2018-03-16] MEDS: Ranolazine 500 MG TAB.ER.12H PO SCH (08:29)
[2018-03-16] MEDS: Fenofibrate 54 MG TABLET PO SCH (08:29)
[2018-03-16] MEDS: metOLazone 5 MG TABLET PO SCH (08:30)
[2018-03-16] MEDS: Furosemide 20 MG TABLET PO SCH (08:30)
[2018-03-16] MEDS: hydrALAZINE 25 MG TABLET PO SCH ×2 (08:30→15:51)
[2018-03-16] MEDS: ALPRAZolam 1 MG TABLET PO SCH (08:32)
[2018-03-16] MEDS: Aspirin Enteric Coated 81 MG Tablet PO SCH (08:32)
[2018-03-16] MEDS: NIFEdipine XL (24 HR) 30 MG TAB.ER.24 PO SCH (09:13)
--- NOTE | 2018-03-16 11:00 | Nephrology Progress Note ---
Date of Encounter: 03/16/18 Time of Encounter: 10:57 - Assessment and Plan (1) ESRD (end stage renal disease) on dialysis Current Visit: Yes Status: Chronic Permacath placed yesterday, however it will only run at a reduced blood flow which is not ideal for clearance. Spoke with primary team, aware of malfunctioning line. HD nurse to call IR. Continue renal diet (2) Osteoarthritis of right hip Current Visit: Yes Status: Acute per primary team Qualifiers: Osteoarthritis type: unspecified Qualified Code(s): M16.11 - Unilateral primary osteoarthritis, right hip (3) Hyponatremia Current Visit: Yes Status: Resolved Sodium fluctuating at 130 but essentially due to fluid shifts with ESRD, will monitor (4) CRBSI (catheter-related bloodstream infection) Current Visit: Yes Status: Resolved Final blood cultures from 03/08/18 negative Continue abx per ID and primary team Qualifiers: Qualified Code(s): T80.211A - Bloodstream infection due to central venous catheter, initial encounter Subjective Principal diagnosis: right hip pain Interval history: Pt seen and examined in HD, tolerating well. Feeling well. Denies any chest pain or shortness of breath. Denies nausea, vomiting, or diarrhea. No acute events overnight. Objective - Vital Signs Vital signs: Vital Signs Temp Pulse Resp BP Pulse Ox 03/16/18 09:10 96.4 F L 15 150/57 03/16/18 07:26 16 93 03/16/18 06:50 97.6 F 60 15 103/60 95 03/16/18 04:10 97.2 F L 56 16 130/67 95 03/15/18 23:59 97.9 F 57 16 136/52 93 03/15/18 20:47 97.8 F 56 16 145/53 97 03/15/18 20:46 97 03/15/18 20:11 16 96 03/15/18 18:20 54 144/80 95 03/15/18 17:00 56 120/71 96 03/15/18 16:45 58 133/65 96 03/15/18 16:30 55 156/59 97 03/15/18 16:15 58 16 168/58 95 03/15/18 15:57 97.4 F L 54 16 160/73 95 03/15/18 15:12 55 9 152/63 100 03/15/18 15:06 55 10 155/66 100 03/15/18 15:00 52 12 141/67 100 03/15/18 14:55 60 13 142/62 100 03/15/18 14:50 53 14 154/61 100 03/15/18 14:46 50 13 148/65 100 03/15/18 10:58 97.4 F L 58 18 148/58 95 Intake and Output 03/15/18 03/16/18 03/16/18 23:59 07:59 15:59 Intake Total 250 / 250 840 / 840 Output Total 350 / 350 Balance -100 / -100 840 / 840 Intake: IV Fluids 250 / 250 Vancocin 750 MG In 0.9 % Sodium 250 / 250 Chloride 250 ML @ 250 mls/hr IVPB ONCE ONE Rx#:[id number] Oral 240 / 240 Intake, Rinseback and Flushes 600 / 600 Output: Urine 350 / 350 Other: Meal Breakfast Percent of Meal Consumed 0% Weight 108 kg Blood Glucose* 137 129 Hemodialysis Net Fluid Removed 0 (mL) - General Appearance General appearance: Present: well-developed, well-nourished EENT: Present: ATNC, hearing intact, vision intact Neck: Present: supple Respiratory: Present: clear Cardiology: Present: no edema, normal S1, normal S2 Dialysis Vascular Access: Venous Catheter (Tuneled Line, DRSG c/D/I) Gastrointestinal: Present: normoactive bowel sounds, no tenderness, no guarding Integumentary: Present: no rash, warm and dry Neurologic: Present: alert and oriented x3 Musculoskeletal: Present: no deformities, no erythema Psychiatric: Present: mood/affect appropriate, cooperative - Lab 03/16/18 07:14 03/16/18 07:14 Most recent lab results Calcium 9.5 mg/dL (8.6-10.3) 03/16/18 07:14 Urine Sodium 25.9 mEq/L 03/08/18 16:40 Consult Discharge Plan - Plan Referrals: Jay Valenzuela DO [Primary Care Provider] - (office will call patient for an appointment when there is available time sooner)
[2018-03-16] MEDS ORDERED: Heparin 1,000 UNITS/500 mL 500 ML ONE (14:01)
[2018-03-16] MEDS ORDERED: *HR* FentaNYL (PF) 100 MCG/2 ML VIAL IVP ONE (14:34)
[2018-03-16] MEDS ORDERED: *HR* Midazolam HCl 2 MG/2 ML VIAL IVP ONE (14:34)
[2018-03-16] MEDS ORDERED: CeFAZolin Premix DUPLEX 2,000 MG/50 ML BAG IVPB ONE (14:34)
[2018-03-16] MEDS ORDERED: 0.9 % Sodium Chloride 500 ML ONE (14:37)
[2018-03-16] MEDS ORDERED: *HR* Heparin 5,000 UNIT/ML VIAL ONE (14:45)
[2018-03-16] MEDS ORDERED: Isovue-300 50 ML VIAL IVP ONE (14:48)
--- NOTE | 2018-03-16 14:58 | Discharge Summary ---
- NOTES TO OUTPATIENT PROVIDER Notes to Outpatient Provider: Patient with history of ESRD was admitted for E. faecalis bacteremia secondary to CLABSI from HD catheter. CAtheter tip also grew MRSA which was not found in bloodstream. HD catheter removed and underwent HD through temp access per Nephrology till 03/16 when she got a new tunneled HD catheter. She will complete tx with IV Vancomycin (to be given with HD, check random level at the dialysis center as well) through 03/21 per ID recommendation. 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 [IR] Routine IR venogram [facility] [IR] Routine 03/17/18 04:00 Basic Metabolic Panel AM 0400 CBC no Diff [Complete Blood Count w/o Diff] [HEME] AM 0400 03/18/18 04:00 Basic Metabolic Panel AM 0400 CBC no Diff [Complete Blood Count w/o Diff] [HEME] AM 0400 03/19/18 04:00 Basic Metabolic Panel AM 0400 CBC no Diff [Complete Blood Count w/o Diff] [HEME] AM 0400 03/20/18 04:00 Basic Metabolic Panel AM 0400 CBC no Diff [Complete Blood Count w/o Diff] [HEME] AM 0400 Date of Encounter: 03/16/18 Time of Encounter: 12:30 - Discharge Diagnosis (1) Sepsis Priority: Primary Status: Resolved Qualifiers: Sepsis type: methicillin resistant Staphylococcus aureus Qualified Code(s): A41.02 - Sepsis due to Methicillin resistant Staphylococcus aureus (2) Hyponatremia Priority: Secondary Status: Acute (3) CAD (coronary artery disease) Priority: Secondary Status: Chronic Qualifiers: Coronary Disease-Associated Artery/Lesion type: unspecified vessel or lesion type [place] vs. transplanted heart: unspecified whether [place] or transplanted heart Associated angina: angina presence unspecified Qualified Code(s): I25.10 - Atherosclerotic heart disease of [place] coronary artery without angina pectoris (4) ESRD (end stage renal disease) on dialysis Priority: Secondary Status: Chronic (5) CRBSI (catheter-related bloodstream infection) Priority: Secondary Status: Resolved Qualifiers: Qualified Code(s): T80.211A - Bloodstream infection due to central venous catheter, initial encounter (6) Degenerative joint disease of right hip Priority: Secondary Status: Chronic Qualifiers: Osteoarthritis type: unspecified Qualified Code(s): M16.11 - Unilateral primary osteoarthritis, right hip (7) Type 2 diabetes mellitus Priority: Secondary Status: Chronic 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 Diabetes mellitus complication status: with kidney complications Diabetes mellitus complication detail: with chronic kidney disease Chronic kidney disease stage: on chronic dialysis Qualified Code(s): E11.22 - Type 2 diabetes mellitus with diabetic chronic kidney disease; N18.6 - End stage renal disease; Z79.4 - residential (current) use of insulin; Z99.2 - Dependence on renal dialysis (8) Hypertensive renal disease with renal failure Priority: Secondary Status: Chronic (9) COPD (chronic obstructive pulmonary disease) Priority: Secondary Status: Chronic Qualifiers: COPD type: unspecified COPD Qualified Code(s): J44.9 - Chronic obstructive pulmonary disease, unspecified (10) Sacral decubitus ulcer Priority: Secondary Status: Chronic Qualifiers: Pressure injury stage: stage 1 Qualified Code(s): L89.151 - Pressure ulcer of sacral region, stage 1 Hospital course: Ms. Garcia is a 67 year old female with history of ESRD who was admitted for E. faecalis bacteremia secondary to CLABSI from HD catheter. CAtheter tip also grew MRSA which was not found in bloodstream. HD catheter removed and underwent HD through temp access per Nephrology till 03/16 when she got a new tunneled HD catheter. She will complete tx with IV Vancomycin (to be given with HD, check random level at the dialysis center as well) through / per ID recommendation. Discharge discussed with: patient, nurse, senior solutions workflow consultant - Time Spent with Patient Total time spent providing and/or coordinating discharge services: 41 mins - Discharge Medications Prescriptions: Vancomycin HCl in 5 % Dextrose [Vancomycin 750 mg/250 ml-D5w] 750 mg IV Q48H #10 plast..bag Home Medications: ALPRAZolam [Xanax 1 MG Tablet] 1 mg PO BID 04/15/17 [History] Clopidogrel [Plavix] 75 mg PO DAILY 04/15/17 [History] DULoxetine [Cymbalta] 30 mg PO BID 04/15/17 [History] Famotidine [Heartburn Prevention] 20 mg PO BID 04/15/17 [History] risperiDONE [Risperidone] 1 mg PO HS 04/15/17 [History] Ranolazine [Ranexa] 500 mg PO BID 07/23/17 [History] Rosuvastatin [Crestor] 40 mg PO QPM 07/23/17 [History] Budesonide/Formoterol 160/4.5 [Symbicort 160/4.5] 2 puff IH BIDR 09/28/17 [History] HYDROcodone/Acet 5/325 mg [[place] 5-325 mg] 1 tab PO BID PRN 09/28/17 [History] Tiotropium [Spiriva] 1 puff IH DAILY 09/28/17 [History] Hydralazine HCl 100 mg PO TID #90 tablet 10/04/17 [Rx] Carvedilol [Coreg] 25 mg PO BIDWM 30 Days #30 tablet 11/21/17 [Rx] cloNIDine HCl [CloNIDine HCl] 0.1 mg PO TID 30 Days #90 tablet 11/21/17 [Rx] metOLazone [Zaroxolyn] 5 mg PO DAILY@0730 30 Days #30 tablet 11/21/17 [Rx] Aspirin [Lo-Dose Aspirin EC] 81 mg PO DAILY 12/15/17 [History] Insulin Regular U-500 [HumuLIN R U-500] 70 unit SQ TID 12/15/17 [History] NIFEdipine [Nifedipine ER] 90 mg PO DAILY 12/15/17 [History] Sevelamer [Renvela] 800 mg PO TID 12/15/17 [History] Trazodone HCl 100 mg PO HS 12/15/17 [History] Albuterol Sulfate [Albuterol Inhaler] 2 puff IH Q6H PRN inhaler 12/21/17 [Rx] Fenofibrate Nanocrystallized [Fenofibrate] 160 mg PO DAILY 03/02/18 [History] Furosemide [Lasix] 20 mg PO DAILY 03/02/18 [History] Miconazole 2% cream [Coby Antifungal] 1 appl TP BID tube 03/16/18 [Rx] Vancomycin HCl in 5 % Dextrose [Vancomycin 750 mg/250 ml-D5w] 750 mg IV Q48H #10 plast..bag 03/16/18 [Rx] Allergies/Adverse Reactions: Allergy/AdvReac Type Severity Reaction Status Date / Time morphine Allergy Hallucinati Verified 03/02/18 06:36 ng Sulfa (Sulfonamide Allergy Rash Verified 03/02/18 06:36 Antibiotics) Date of admission: 03/02/18 15:45 Primary care physician: Jay Valenzuela Consults: 03/02/18 09:23 Consult to Interventional Radiology [CONS] Stat Consulting Provider: Radiology Interventional Cols Reason for Consult: Right hip aspiration Time Notified: 09:24 Call Completed: Yes 03/02/18 15:30 Consult to Nephrology [CONS] Routine Consulting Provider: Kidney Amina/HINA/MONY/JENS Reason for Consult: ESRD on HD Tue/[place]/Sat Time Notified: 15:31 Call Completed: Yes 03/02/18 17:20 Consult to Nutrition [CONS] Routine Comment: Consulting Provider: NUTRITION Reason for Dietary Consult: Diet Education 03/03/18 08:00 Consult to Dialysis [CONS] ONCE 03/03/18 13:29 Consult to Infectious Diseases [CONS] Routine Consulting Provider: Infectious Disease Amina Reason for Consult: Bacteremia Time Notified: 13:32 Call Completed: Yes 03/03/18 15:21 Consult to Nurse Navigator [CONS] Routine Comment: HD PT 03/04/18 07:15 Consult to Dialysis [CONS] QTUTHSA 03/04/18 08:00 Consult to Dialysis [CONS] ONCE 03/04/18 10:51 Consult to Interventional Radiology [CONS] Routine Consulting Provider: Radiology Interventional Cols Reason for Consult: Please assess for Permacth guidewire exchange, re: poor flows and bacteremia. ID is following. Thank you. Call Completed: Yes 03/06/18 07:15 Consult to Dialysis [CONS] QTUTHSA 03/08/18 10:42 Consult to Interventional Radiology [CONS] Routine Consulting Provider: Radiology Interventional Cols Reason for Consult: Please remove permacath after HD today for line holiday. Will replace or Thursday. Time Notified: 10:43 Call Completed: Yes 03/08/18 10:49 Consult to Dialysis [CONS] Stat 03/10/18 09:14 Consult to Wound Care [CONS] Routine Reason for Consult: areas noted to coccyx Time Notified: 09:16 Call Completed: Yes 03/11/18 09:15 Consult to Dialysis [CONS] ONCE 03/11/18 10:30 Consult to Interventional Radiology [CONS] Routine Consulting Provider: Radiology Interventional Cols Reason for Consult: Please place temp line for HD today. Thanks Time Notified: 09:16 Call Completed: Yes 03/12/18 07:00 Consult to Dialysis [CONS] ONCE 03/12/18 11:27 Consult to Interventional Radiology [CONS] Stat Consulting Provider: Radiology Interventional Cols Reason for Consult: non functional cvc replacement Time Notified: 11:10 Call Completed: Yes 03/15/18 00:35 Consult to Interventional Radiology [CONS] Routine Consulting Provider: Radiology Interventional Cols Reason for Consult: permcath placement Call Completed: No 03/16/18 08:30 Consult to Dialysis [CONS] ONCE 03/16/18 10:22 Consult to Interventional Radiology [CONS] Routine Consulting Provider: Radiology Interventional Cols Reason for Consult: Assess new permacath - not functioning properly Time Notified: 10:20 Call Completed: Yes - Constitutional Vitals: Temp Pulse Resp BP Pulse Ox 96.9 F L 60 13 116/55 100 03/16/18 12:25 03/16/18 14:44 03/16/18 14:44 03/16/18 14:44 03/16/18 14:44 General appearance: Present: A&O X 3, no acute distress, obese, answers questions appropriately Exam: General: In no acute distress. Obese. Respiratory exam: CTAB. no rales, rhonchi, wheezes Cardiovascular exam: RRR, +S1, +S2. no murmur Abdomen: Soft, Non-tender Neurological exam: CN II-XII intact, AO X3, no focal deficits - Patient Status Disposition: Home Health Service Condition: Fair Overall status at discharge: patient is progressing back to baseline - Ambulatory Orders Ambulatory Orders: Vancomycin,Random [CHEM] Time Frame: 2 Days, Facility: [facility], Location: Lab - Discharge Instructions Instructions: Chronic Obstructive Pulmonary Disease (DC), Diabetes Mellitus Type 2 in Adults (DC), Chronic Hypertension (DC), Sepsis (DC) Follow Up With: Jay Valenzuela DO [Primary Care Provider] - (office will call patient for an appointment when there is available time sooner) Additional Instructions: Complete IV Vancomycin with HD through 2/3 New tunneled HD catheter on the left for dialysis access Resume HD TTHSat - Diet and Activity Activity: resume usual activities as tolerated Diet: other (renal diet)
--- NOTE | 2018-03-16 15:03 | Physician Discharge Referral ---
Home Health/Hosp Referral Info Transfer to: Home Health Provider in Charge Post Discharge: PCP - Diagnosis (1) Sepsis Priority: Primary Status: Resolved (2) Hyponatremia Priority: Secondary Status: Acute (3) CAD (coronary artery disease) Priority: Secondary Status: Chronic (4) ESRD (end stage renal disease) on dialysis Priority: Secondary Status: Chronic (5) CRBSI (catheter-related bloodstream infection) Priority: Secondary Status: Resolved (6) Degenerative joint disease of right hip Priority: Secondary Status: Chronic (7) Type 2 diabetes mellitus Priority: Secondary Status: Chronic (8) Hypertensive renal disease with renal failure Priority: Secondary Status: Chronic (9) COPD (chronic obstructive pulmonary disease) Priority: Secondary Status: Chronic (10) Sacral decubitus ulcer Priority: Secondary Status: Chronic - Respiratory Orders Smoking Cessation: Smoking cessation has been advised. For more information, call the [place] [employer] Quit Line at 4-671-[phone]-NOW. Other Treatments: Complete IV Vancomycin through 03/21. To be given at HD center - Transfer Medications Prescriptions: Vancomycin HCl in 5 % Dextrose [Vancomycin 750 mg/250 ml-D5w] 750 mg IV Q48H #10 plast..bag Home Medications: ALPRAZolam [Xanax 1 MG Tablet] 1 mg PO BID 04/15/17 [History] Clopidogrel [Plavix] 75 mg PO DAILY 04/15/17 [History] DULoxetine [Cymbalta] 30 mg PO BID 04/15/17 [History] Famotidine [Heartburn Prevention] 20 mg PO BID 04/15/17 [History] risperiDONE [Risperidone] 1 mg PO HS 04/15/17 [History] Ranolazine [Ranexa] 500 mg PO BID 07/23/17 [History] Rosuvastatin [Crestor] 40 mg PO QPM 07/23/17 [History] Budesonide/Formoterol 160/4.5 [Symbicort 160/4.5] 2 puff IH BIDR 09/28/17 [History] HYDROcodone/Acet 5/325 mg [[place] 5-325 mg] 1 tab PO BID PRN 09/28/17 [History] Tiotropium [Spiriva] 1 puff IH DAILY 09/28/17 [History] Hydralazine HCl 100 mg PO TID #90 tablet 10/04/17 [Rx] Carvedilol [Coreg] 25 mg PO BIDWM 30 Days #30 tablet 11/21/17 [Rx] cloNIDine HCl [CloNIDine HCl] 0.1 mg PO TID 30 Days #90 tablet 11/21/17 [Rx] metOLazone [Zaroxolyn] 5 mg PO DAILY@0730 30 Days #30 tablet 11/21/17 [Rx] Aspirin [Lo-Dose Aspirin EC] 81 mg PO DAILY 12/15/17 [History] Insulin Regular U-500 [HumuLIN R U-500] 70 unit SQ TID 12/15/17 [History] NIFEdipine [Nifedipine ER] 90 mg PO DAILY 12/15/17 [History] Sevelamer [Renvela] 800 mg PO TID 12/15/17 [History] Trazodone HCl 100 mg PO HS 12/15/17 [History] Albuterol Sulfate [Albuterol Inhaler] 2 puff IH Q6H PRN inhaler 12/21/17 [Rx] Fenofibrate Nanocrystallized [Fenofibrate] 160 mg PO DAILY 03/02/18 [History] Furosemide [Lasix] 20 mg PO DAILY 03/02/18 [History] Miconazole 2% cream [Coby Antifungal] 1 appl TP BID tube 03/16/18 [Rx] Vancomycin HCl in 5 % Dextrose [Vancomycin 750 mg/250 ml-D5w] 750 mg IV Q48H #10 plast..bag 03/16/18 [Rx] Allergies/Adverse Reactions: Allergy/AdvReac Type Severity Reaction Status Date / Time morphine Allergy Hallucinati Verified 03/02/18 06:36 ng Sulfa (Sulfonamide Allergy Rash Verified 03/02/18 06:36 Antibiotics) Certification: Further, I certify that my clinical findings support that this patient is homebound (i.e. absences from home require considerable and taxing effort and are for medical reasons or anabaptism services or infrequently or short duration when for other reasons) because: Homebound Reason: Patient requires assistance of a person or device to safely leave home Attestation: My signature below is to certify that this patient is under my care and that I, or nurse practitioner, or a physician's zoning assistant working with me, has a [id number] encounter with this patient.
--- NOTE | 2018-03-16 15:13 | IR Procedure Note ---
Date of procedure: 03/16/18 Consent Obtained: Written consent Timeout: Correct patient and procedure verified, Correct site verified, Time out performed, Skin prep completed Local anesthetic: Lidocaine 1% Indications: nonfunctioning left IJ permacath Procedure Performed: permcath exchange to 35 cm tip to cuff Was there an assistant operations manager present: No Site/Technique: left IJ Results/Findings: exchange to a longer 35 cm tip to cuff with tip right atrium Estimated blood loss (cc): 0 Complications: None; Tolerated procedure well Post Procedure Treatment Plan: ok to use cath Specimen: NA
[2018-03-16 15:26] VITALS: BP 103/64
[2018-03-16] MEDS: Nystatin POWDER 30 GM BOTTLE TP SCH (17:13)
[2018-03-16] MEDS ORDERED: Aminoglycoside Consult 1 EACH MC ONE (17:22)
== END 2018-03-16 17:23 | disposition home health service (06) | DRG 286 ==
LOC: 2ANU 06:36 → EMEROOARM 06:36 → SUATTDRO 15:45 → 2ANU 16:06
PROVIDERS: ADMIT Internal Medicine; ATTEND Internal Medicine
PROC: IRDRAIN (2018-03-02 12:00)
PROC: IRPERMA (2018-03-11 10:30)

== ENCOUNTER 2018-10-16 07:19 | Inpatient (IN) ==
[2018-10-16 09:06] LABS: Albumin 4.1 g/dL (3.5-5.7); Albumin/Globulin Ratio 1.3 (1.1-2.2); Bilirubin,Direct 0.1 mg/dL (0.0-0.2); Bilirubin,Indirect 0.4 mg/dL (0.0-1.2); Bilirubin,Total 0.5 mg/dL (0.3-1.0); Calcium 10.2 mg/dL (8.6-10.3); Globulin 3.2 g/dL (2.4-3.5); Potassium 4.4 mEq/L (3.5-5.1); Total Protein 7.3 g/dL (6.4-8.9)
[2018-10-16] MEDS ORDERED: Promethazine 25 MG in 0.9 % Sodium Chloride 50 ML IVPB ONE (10:10)
--- NOTE | 2018-10-16 10:21 | Emergency Department Note ---
Disposition Clinical Impression: ESRD (end stage renal disease) on dialysis Abdominal pain Qualifiers: Abdominal location: epigastric Qualified Code(s): R10.13 - Epigastric pain Pancreatitis Qualifiers: Chronicity: acute Pancreatitis type: unspecified pancreatitis type Acute pa ncreatitis complication: unspecified Qualified Code(s): K85.90 - Acute pancreatitis without necrosis or infection, unspecified Nausea & vomiting Qualifiers: Vomiting type: unspecified Vomiting Intractability: non-intractable Qualified Code(s): R11.2 - Nausea with vomiting, unspecified Disposition: Admitted As Inpatient Condition: Fair Time of Disposition: 12:40 Abdominal Pain HPI - General Chief Complaint: ED Abdominal Pain Stated Complaint: ABD Pain,N/V x3days Time Seen by Provider: 10/16/18 07:49 Source: patient, family Mode of arrival: private vehicle Limitations: no limitations Nursing Notes Reviewed: Yes Vital Signs Reviewed: Yes - History of Present Illness Pt Subjective Complaint: abdominal pain (epigastric), other (intractable nausea and vomiting x 2 days) Consistency: constant Location: epigastric Pain Severity: moderate Pain Scale: 3 Quality: stabbing, aching, sharp - Related Data Home Medications Medication Instructions Recorded Confirmed ALPRAZolam [Xanax 1 MG Tablet] 1 mg PO BID 04/15/17 10/16/18 Clopidogrel [Plavix] 75 mg PO DAILY 04/15/17 10/16/18 DULoxetine [Cymbalta] 30 mg PO BID 04/15/17 10/16/18 Famotidine [Heartburn Prevention] 20 mg PO BID 04/15/17 10/16/18 risperiDONE [Risperidone] 1 mg PO HS 04/15/17 10/16/18 Ranolazine [Ranexa] 500 mg PO BID 07/23/17 10/16/18 Rosuvastatin [Crestor] 40 mg PO QPM 07/23/17 10/16/18 HYDROcodone/Acet 5/325 mg [[place] 1 tab PO BID PRN 09/28/17 10/16/18 5-325 mg] Tiotropium [Spiriva] 1 puff IH DAILY 09/28/17 05/04/18 Aspirin [Lo-Dose Aspirin EC] 81 mg PO DAILY 12/15/17 10/16/18 Insulin Regular U-500 [HumuLIN R 2 - 6 unit SQ TID 12/15/17 05/04/18 U-500] NIFEdipine [Nifedipine ER] 90 mg PO DAILY 12/15/17 10/16/18 Sevelamer [Renvela] 800 mg PO TID 12/15/17 10/16/18 Trazodone HCl 100 mg PO HS 12/15/17 10/16/18 Fenofibrate Nanocrystallized 160 mg PO DAILY 03/02/18 10/16/18 [Fenofibrate] Furosemide [Lasix] 40 mg PO DAILY 03/02/18 10/16/18 Ipratropium/Albuterol Neb [Duoneb] 3 ml IH Q4-6H PRN 05/04/18 05/04/18 Cholecalciferol (Vitamin D3) 50,000 unit PO QWEEK 10/16/18 10/16/18 [Vitamin D3] Metoprolol [Lopressor] 50 mg PO BID 10/16/18 10/16/18 Potassium Chloride [K-Tab ER] 20 meq PO BID 10/16/18 10/16/18 Previous Rx's Medication Instructions Recorded Hydralazine HCl 100 mg PO TID #90 tablet 10/04/17 Carvedilol [Coreg] 25 mg PO BIDWM 30 Days #30 tablet 11/21/17 cloNIDine HCl [CloNIDine HCl] 0.1 mg PO TID 30 Days #90 tablet 11/21/17 metOLazone [Zaroxolyn] 5 mg PO DAILY@0730 30 Days #30 11/21/17 tablet Miconazole 2% cream [[place] 1 appl TP BID tube 03/16/18 Antifungal] Vancomycin [Vancocin] 1 each IVPB RPHPROT PRN #60 vial 05/14/18 Allergies Allergy/AdvReac Type Severity Reaction Status Date / Time morphine Allergy Hallucinati Verified 03/02/18 06:36 ng Sulfa (Sulfonamide Allergy Rash Verified 03/02/18 06:36 Antibiotics) Abdominal Pain PMH - Past Medical History Medical history: Reports: arthritis, CHF, COPD, diabetes, dialysis, GERD, hyperlipidemia, hypertension, RA, renal disease Female Surgical History: Reports: angioplasty/stent, appendectomy Psychiatric history: Reports: anxiety, bipolar - Social History Smoking status: Current every day smoker Alcohol use: Reports: none Drug use: Reports: none Physical Exam - General Limitations: no limitations General appearance: alert, in no apparent distress - Head Head exam: atraumatic, normocephalic, normal inspection - Eye Eye exam: Present: normal appearance, PERRL, EOMI. Absent: scleral icterus, conjunctival injection, periorbital swelling - ENT ENT exam: mucous membranes dry - Neck Neck exam: Present: normal inspection, full ROM, trachea midline. Absent: meningismus - Respiratory Respiratory exam: Present: normal lung sounds bilaterally. Absent: respiratory distress, wheezes - Cardiovascular Cardiovascular exam: Present: regular rate, normal rhythm - Abdominal Exam Abdominal exam: Present: soft, tenderness. Absent: distention, guarding, rebound, rigidity, Downey's sign, tenderness at McBurney's Point, ascites, mass, pulsatile mass Abdominal tenderness: Present: epigastrium, moderate - Extremities Exam Extremities exam: Present: normal capillary refill, pedal edema. Absent: tenderness - Neurological Exam Neurological exam: Present: alert, oriented X3, CN II-XII intact - Psychiatric Psychiatric exam: Present: normal affect, normal mood - Skin Skin exam: Present: warm, dry, intact, normal color Course Course Narrative: Patient with ESRD presents from home with epigastric abd pain and intractable N/V x several days. No relief with ODT Zofran at home. Missed dialysis this AM due to illness. Surprisingly friendly and pleasant despite illness. No fever. Labs, meds and CT ordered. Lipase elevated. Renal function consistent with ESRD. CT shows a GB full of stones but no signs of infection. No stranding around pancreas either. Will admit for rehydration, N/V control. Discussed case with hospitalist. He states that he will contact surgery and patient's food service driver. Case also discussed with Dr. Colby. He has had face to face time with the patient and agrees with the assess,ent and plan Vital Signs Temperature 97.4 F L 10/16/18 07:25 Pulse Rate 78 10/16/18 07:25 Respiratory Rate 18 10/16/18 07:25 Blood Pressure 153/78 10/16/18 07:25 O2 Sat by Pulse Oximetry 95 10/16/18 07:25 Temperature 97.6 F 10/18/18 06:30 Pulse Rate 67 10/18/18 06:30 Respiratory Rate 16 10/18/18 06:30 Blood Pressure 113/70 10/18/18 06:30 O2 Sat by Pulse Oximetry 98 10/18/18 06:30 Oxygen Delivery Oxygen Delivery Room Air Abdominal Pain - Medical Records Medical records reviewed: Yes I reviewed the patient's medical records. - Lab Data Lab results reviewed: Yes I reviewed the patient's lab results. Lab results narrative: Laboratory Last Values WBC 10.6 K/mcL (4.3-11.1) 10/16/18 08:25 RBC 4.23 M/mcL (3.82-4.97) 10/16/18 08:25 Hgb 13.0 g/dL (11.5-15.4) 10/16/18 08:25 Hct 39.2 % (35.3-44.9) 10/16/18 08:25 MCV 92.7 fL (83.0-100.0) 10/16/18 08:25 MCH 30.7 pg (28.0-33.3) 10/16/18 08:25 MCHC 33.2 g/dL (31.6-35.5) 10/16/18 08:25 RDW 13.3 % (11.5-14.5) 10/16/18 08:25 Plt Count 199 K/mcL (140-400) 10/16/18 08:25 MPV 9.3 fL (9.4-12.4) L 10/16/18 08:25 Immature Gran % 0.7 % (0-4) 10/16/18 08:25 Seg Neutrophils % 71.3 % 10/16/18 08:25 Lymphocytes % 17.7 % 10/16/18 08:25 Monocytes % 8.1 % 10/16/18 08:25 Eosinophils % 1.4 % 10/16/18 08:25 Basophils % 0.8 % 10/16/18 08:25 Neutrophils # 7.6 K/mcL (1.6-8.9) 10/16/18 08:25 Lymphocytes # 1.9 K/mcL (0.6-4.6) 10/16/18 08:25 Monocytes # 0.9 K/mcL (0.0-1.3) 10/16/18 08:25 Eosinophils # 0.2 K/mcL (0.0-0.6) 10/16/18 08:25 Basophils # 0.1 K/mcL (0.0-0.2) 10/16/18 08:25 Sodium 129 mEq/L (136-145) L 10/16/18 08:25 Potassium 4.4 mEq/L (3.5-5.1) 10/16/18 08:25 Chloride 90 mEq/L (98-107) L 10/16/18 08:25 Carbon Dioxide 23 mEq/L (23-29) 10/16/18 08:25 BUN 61 mg/dL (8-23) H 10/16/18 08:25 Creatinine 6.55 mg/dL (0.60-1.20) H 10/16/18 08:25 Est GFR ( Amer) 8 (> 60) L 10/16/18 08:25 Est GFR (Non-Af Amer) 6 (> 60) L 10/16/18 08:25 BUN/Creatinine Ratio 9 (6-26) 10/16/18 08:25 Glucose 118 mg/dL (70-105) H 10/16/18 08:25 Calculated Osmolality 286 (280-300) 10/16/18 08:25 Calcium 10.2 mg/dL (8.6-10.3) 10/16/18 08:25 Total Bilirubin 0.5 mg/dL (0.3-1.0) 10/16/18 08:25 Direct Bilirubin 0.1 mg/dL (0.0-0.2) 10/16/18 08:25 Indirect Bilirubin 0.4 mg/dL (0.0-1.2) 10/16/18 08:25 AST 12 Units/L (13-39) L 10/16/18 08:25 ALT 11 Units/L (7-52) 10/16/18 08:25 Alkaline Phosphatase 77 Units/L (34-104) 10/16/18 08:25 Serum Total Protein 7.3 g/dL (6.4-8.9) 10/16/18 08:25 Albumin 4.1 g/dL (3.5-5.7) 10/16/18 08:25 Globulin 3.2 g/dL (2.4-3.5) 10/16/18 08:25 Albumin/Globulin Ratio 1.3 (1.1-2.2) 10/16/18 08:25 Triglycerides 139 mg/dL (< 150) 10/16/18 08:25 Cholesterol 152 mg/dL (< 200) 10/16/18 08:25 LDL Cholesterol, Calc 73 mg/dL (0-99) 10/16/18 08:25 VLDL Cholesterol, Calc 28 mg/dL (< 31) 10/16/18 08:25 HDL Cholesterol 51 mg/dL (40-59) 10/16/18 08:25 Cholesterol/HDL Ratio 3.0 (0-4.9) 10/16/18 08:25 Amylase Cancelled 10/16/18 08:25 Lipase 316 Units/L (11-82) H 10/16/18 08:25 Hep Bs Antigen Nonreactive (Nonreactive) 10/16/18 08:25 Hep Bs Antibody 3.24 mIU/mL (10.00-) L 10/16/18 08:25 Result diagrams: 10/18/18 06:07 10/18/18 06:07 Lab Results 10/16/18 10/16/18 10/16/18 Range/Units 08:25 08:25 08:25 WBC 10.6 (4.3-11.1) K/mcL RBC 4.23 (3.82-4.97) M/mcL Hgb 13.0 (11.5-15.4) g/dL Hct 39.2 (35.3-44.9) % MCV 92.7 (83.0-100.0) fL MCH 30.7 (28.0-33.3) pg MCHC 33.2 (31.6-35.5) g/dL RDW 13.3 (11.5-14.5) % Plt Count 199 (140-400) K/mcL MPV 9.3 L (9.4-12.4) fL Immature Gran % 0.7 (0-4) % Seg Neutrophils % 71.3 % Lymphocytes % 17.7 % Monocytes % 8.1 % Eosinophils % 1.4 % Basophils % 0.8 % Neutrophils # 7.6 (1.6-8.9) K/mcL Lymphocytes # 1.9 (0.6-4.6) K/mcL Monocytes # 0.9 (0.0-1.3) K/mcL Eosinophils # 0.2 (0.0-0.6) K/mcL Basophils # 0.1 (0.0-0.2) K/mcL Sodium 129 L (136-145) mEq/L Potassium 4.4 (3.5-5.1) mEq/L Chloride 90 L (98-107) mEq/L Carbon Dioxide 23 (23-29) mEq/L BUN 61 H (8-23) mg/dL Creatinine 6.55 H (0.60-1.20) mg/dL Est GFR ( Amer) 8 L (> 60) Est GFR (Non-Af Amer) 6 L (> 60) BUN/Creatinine Ratio 9 (6-26) Glucose 118 H (70-105) mg/dL Calculated Osmolality 286 (280-300) Calcium 10.2 (8.6-10.3) mg/dL Total Bilirubin 0.5 (0.3-1.0) mg/dL Direct Bilirubin 0.1 (0.0-0.2) mg/dL Indirect Bilirubin 0.4 (0.0-1.2) mg/dL AST 12 L (13-39) Units/L ALT 11 (7-52) Units/L Alkaline Phosphatase 77 (34-104) Units/L Serum Total Protein 7.3 (6.4-8.9) g/dL Albumin 4.1 (3.5-5.7) g/dL Globulin 3.2 (2.4-3.5) g/dL Albumin/Globulin Ratio 1.3 (1.1-2.2) Triglycerides 139 (< 150) mg/dL Cholesterol 152 (< 200) mg/dL LDL Cholesterol, Calc 73 (0-99) mg/dL VLDL Cholesterol, Calc 28 (< 31) mg/dL HDL Cholesterol 51 (40-59) mg/dL Cholesterol/HDL Ratio 3.0 (0-4.9) Amylase Cancelled Lipase 316 H (11-82) Units/L Hep Bs Antigen Nonreactive (Nonreactive) Hep Bs Antibody 3.24 L (10.00 - ) mIU/mL
[2018-10-16 10:28] LABS: Basophils # 0.1 K/mcL (0.0-0.2); Basophils % 0.8 %; Eosinophils # 0.2 K/mcL (0.0-0.6); Eosinophils % 1.4 %; Hematocrit 39.2 % (35.3-44.9); Immature Granulocytes % 0.7 % (0-4); Lymphocytes # 1.9 K/mcL (0.6-4.6); Lymphocytes % 17.7 %; Mean Corpuscular HGB Conc 33.2 g/dL (31.6-35.5); Mean Corpuscular Hemoglobin 30.7 pg (28.0-33.3); Mean Corpuscular Volume 92.7 fL (83.0-100.0); Mean Platelet Volume 9.3 fL (9.4-12.4); Monocytes # 0.9 K/mcL (0.0-1.3); Monocytes % 8.1 %; Neutrophils # 7.6 K/mcL (1.6-8.9); Platelet Count 199 K/mcL (140-400); Red Blood Count 4.23 M/mcL (3.82-4.97); Red Cell Distribution Width 13.3 % (11.5-14.5); Segmented Neutrophils % 71.3 %; White Blood Count 10.6 K/mcL (4.3-11.1)
[2018-10-16] MEDS: 0.9 % Sodium Chloride 1,000 ML IVC SCH (11:09)
[2018-10-16] MEDS ORDERED: Ondansetron 4 MG/2 ML VIAL IVP PRN (11:53)
[2018-10-16] MEDS ORDERED: Acetaminophen 325 MG TABLET PO PRN (11:53)
--- NOTE | 2018-10-16 12:47 | Nephrology Consult Note ---
Date of Encounter: 10/16/18 Time of Encounter: 12:44 Assessment and Plan (1) ESRD (end stage renal disease) Current Visit: No Status: Acute HD TRS via left upper arm fistula Renal diet when ok to eat. Renal dose medications. Plan for dialysis today. Will assess daily for the need for extra dialysis. (2) Abdominal pain Current Visit: Yes Status: Acute Patient with gallstones and elevated lipase. Appears to be gallstone pancreatitis. Defer to primary team. Consider GI/gen surgery consultation. Ok to give gentle fluid. Qualifiers: Qualified Code(s): R10.9 - Unspecified abdominal pain (3) Pancreatitis Current Visit: Yes Status: Acute Per the primary team. Qualifiers: Qualified Code(s): K85.90 - Acute pancreatitis without necrosis or infection, unspecified (4) HTN (hypertension) Current Visit: No Status: Acute Titrate blood pressure medication as needed. Qualifiers: Hypertension type: essential hypertension Qualified Code(s): I10 - Essential (primary) hypertension (5) Hyponatremia Current Visit: No Status: Acute should improve with dialysis. (6) Anxiety Current Visit: No Status: Chronic (7) Diabetes mellitus Current Visit: No Status: Chronic Per the primary team. Qualifiers: Diabetes mellitus type: type 2 Diabetes mellitus exterminator insulin use: with exterminator use Chronic kidney disease stage: on chronic dialysis Qualified Code(s): E11.22 - Type 2 diabetes mellitus with diabetic chronic kidney disease; N18.6 - End stage renal disease; Z79.4 - exterminator helper termite (current) use of insulin; Z99.2 - Dependence on renal dialysis (8) Obesity Current Visit: No Status: Chronic Qualifiers: Obesity type: unspecified obesity type Obesity classification: adult class 3 (BMI >= 40) Serious obesity comorbidity presence: with serious comorbidity Body mass index: BMI 45.0-49.9 Qualified Code(s): E66.01 - Morbid (severe) obesity due to excess calories; Z68.42 - Body mass index (BMI) 45.0-49.9, adult History of Present Illness - Reason for Consult Consult date: 10/16/18 end stage renal disease - Chief Complaint esrd - History of Present Illness Ms. Garcia is a 68 yo woman with a history of ESRD who receives dialysis on a TRS schedule at the [facility] under the direction of [facility]. She presents for the evaluation of nausea, vomiting and abdominal pain since . She presented to the ER and received pain medication with relief. She denies chest pain, sob, or fevers. At home she had a decreased appetite. Her last dialysis was on . Past Med Surg Social Fam HX - Past Medical History Medical history: arthritis, CHF, COPD, diabetes, dialysis, GERD, hyperlipidemia, hypertension, RA, renal disease Additional medical history: HUSAM, Morbid obesity Psychiatric history: anxiety, bipolar - Past Surgical History Surgical History: angioplasty/stent, appendectomy, , cataract Additional surgical history: 1 cardiac stent - Social History Smoking Status: Current every day smoker Smokeless Tobacco Status: No Alcohol use: none Drug use: none - Family History Mother Living Status: Still Living Hx Family Cardiac Disorders: Yes Hx Family Respiratory Disorders: Yes (copd) Hx Family Cancer: Yes Hx Family Neurologic Disorders: Yes (alzheimer) Father Living Status: Hx Family Cardiac Disorders: Yes Hx Family Neurologic Disorders: Yes (Brain aneurysm) Brother Hx Family Endocrine Disorder: Yes (DM) Sister Living Status: Hx Family Endocrine Disorder: Yes (DM) Medications and Allergies ALPRAZolam [Xanax 1 MG Tablet] 1 mg PO BID 04/15/17 [History] Clopidogrel [Plavix] 75 mg PO DAILY 04/15/17 [History] DULoxetine [Cymbalta] 30 mg PO BID 04/15/17 [History] Famotidine [Heartburn Prevention] 20 mg PO BID 04/15/17 [History] risperiDONE [Risperidone] 1 mg PO HS 04/15/17 [History] Ranolazine [Ranexa] 500 mg PO BID 07/23/17 [History] Rosuvastatin [Crestor] 40 mg PO QPM 07/23/17 [History] HYDROcodone/Acet 5/325 mg [[place] 5-325 mg] 1 tab PO BID PRN 09/28/17 [History] Tiotropium [Spiriva] 1 puff IH DAILY 09/28/17 [History] Hydralazine HCl 100 mg PO TID #90 tablet 10/04/17 [Rx] Carvedilol [Coreg] 25 mg PO BIDWM 30 Days #30 tablet 11/21/17 [Rx] cloNIDine HCl [CloNIDine HCl] 0.1 mg PO TID 30 Days #90 tablet 11/21/17 [Rx] metOLazone [Zaroxolyn] 5 mg PO DAILY@0730 30 Days #30 tablet 11/21/17 [Rx] Aspirin [Lo-Dose Aspirin EC] 81 mg PO DAILY 12/15/17 [History] Insulin Regular U-500 [HumuLIN R U-500] 2 - 6 unit SQ TID 12/15/17 [History] NIFEdipine [Nifedipine ER] 90 mg PO DAILY 12/15/17 [History] Sevelamer [Renvela] 800 mg PO TID 12/15/17 [History] Trazodone HCl 100 mg PO HS 12/15/17 [History] Fenofibrate Nanocrystallized [Fenofibrate] 160 mg PO DAILY 03/02/18 [History] Furosemide [Lasix] 40 mg PO DAILY 03/02/18 [History] Miconazole 2% cream [Coby Antifungal] 1 appl TP BID tube 03/16/18 [Rx] Ipratropium/Albuterol Neb [Duoneb] 3 ml IH Q4-6H PRN 05/04/18 [History] Vancomycin [Vancocin] 1 each IVPB RPHPROT PRN #60 vial 05/14/18 [Rx] Cholecalciferol (Vitamin D3) [Vitamin D] 50,000 unit PO QWEEK 10/16/18 [History] Metoprolol [Lopressor] 50 mg PO BID 10/16/18 [History] Potassium Chloride [K-Tab ER] 20 meq PO BID 10/16/18 [History] Allergy/AdvReac Type Severity Reaction Status Date / Time morphine Allergy Hallucinati Verified 03/02/18 06:36 ng Sulfa (Sulfonamide Allergy Rash Verified 03/02/18 06:36 Antibiotics) Review of Systems All Systems: reviewed and no additional remarkable complaints except as stated (as documented in the hpi) Exam - Vital Signs Vital signs: Initial Vital Signs Temp Pulse Resp BP Pulse Ox 97.4 F L 78 18 153/78 95 10/16/18 07:25 10/16/18 07:25 10/16/18 07:25 10/16/18 07:25 10/16/18 07:25 Vital Signs - Last 8 Hours Temp Pulse Resp BP Pulse Ox 10/16/18 12:40 77 18 156/54 98 10/16/18 10:57 72 18 165/59 98 10/16/18 07:25 97.4 F L 78 18 153/78 95 Intake and Output 10/15/18 10/16/18 10/16/18 23:59 07:59 15:59 Other: Weight 106.957 kg Patient Weight 10/16/18 23:59 Weight 106.957 kg - General Appearance General appearance: well-developed, well-nourished, obese EENT: ATNC Neck: supple Respiratory: clear Cardiology: no edema, regular rate - Dialysis Access Dialysis Vascular Access: Arteriovenous Fistula (Left upper arm fistula) thrill: Yes bruit: Yes Gastrointestinal: normoactive bowel sounds, tenderness (epigastric with mild rebound tenderness), no guarding, obese Integumentary: warm and dry Neurologic: alert and oriented x3 Musculoskeletal: no cyanosis Psychiatric: mood/affect appropriate Results - Lab Results 10/16/18 08:25 10/16/18 08:25 Most recent lab results 10/16/18 08:25 Calcium 10.2 Consult Discharge Plan - Plan Referrals: Jay Valenzuela DO [Primary Care Provider] -
--- NOTE | 2018-10-16 12:51 | Internal Med History&Physical ---
Date of Encounter: 10/16/18 Time of Encounter: 12:42 Internal Medicine - H&P: HPI Chief complaint: Abd pain, N/V Admitted From: Emergency Dept History of present illness: Alanis Garcia is a 68 F w hx ESRD on HD TRS, HFpEF, CAD s/p PCI, HTN, HLD, DM2, COPD, RA, anx/bpd, obesity, smoker, who p/w abd pain associated with nausea and numerous episodes vomiting. Pain began 3 days ago on thursday but subsided enough for her to tolerate HD on . However thursday it recurred and this time was more severe, unrelenting, and associated with nausea for which she's vomited last night and several more times today. Never had abd pain of this ras ure. Does state that she was told several years ago when her appendix burst that her gallbladder had stones and would need to come out. Denies fever, jaundice, diarrhea, any bleeding, CP, or SOB. In the ED, pt T 97.4, HR 78, RR 18, BP 150-160s, satting 95% RA. Labs notable for Hb 13, Na 129, Cl 90, BG 120, TBili 0.5, DBili 0.1, ALT 11, AST 12, lipase 316. CT abd shows normal pancreas but gallbladder distended with multiple stones. Past medical, surgical, social, and family histories reviewed and updated as below. Past Med Surg Social Fam HX - Past Medical History Medical history: arthritis, CHF, COPD, diabetes, dialysis, GERD, hyperlipidemia, hypertension, RA, renal disease Additional medical history: HUSAM, Morbid obesity Psychiatric history: anxiety, bipolar - Past Surgical History Surgical History: angioplasty/stent, appendectomy, , cataract Additional surgical history: 1 cardiac stent - Social History Smoking Status: Current every day smoker Smokeless Tobacco Status: No Alcohol use: none Drug use: none - Family History Mother Living Status: Still Living Hx Family Cardiac Disorders: Yes Hx Family Respiratory Disorders: Yes (copd) Hx Family Cancer: Yes Hx Family Neurologic Disorders: Yes (alzheimer) Father Living Status: Hx Family Cardiac Disorders: Yes Hx Family Neurologic Disorders: Yes (Brain aneurysm) Brother Hx Family Endocrine Disorder: Yes (DM) Sister Living Status: Hx Family Endocrine Disorder: Yes (DM) Internal Medicine - H&P: Meds ALPRAZolam [Xanax 1 MG Tablet] 1 mg PO BID 04/15/17 [History] Clopidogrel [Plavix] 75 mg PO DAILY 04/15/17 [History] DULoxetine [Cymbalta] 30 mg PO BID 04/15/17 [History] Famotidine [Heartburn Prevention] 20 mg PO BID 04/15/17 [History] risperiDONE [Risperidone] 1 mg PO HS 04/15/17 [History] Ranolazine [Ranexa] 500 mg PO BID 07/23/17 [History] Rosuvastatin [Crestor] 40 mg PO QPM 07/23/17 [History] HYDROcodone/Acet 5/325 mg [[place] 5-325 mg] 1 tab PO BID PRN 09/28/17 [History] Tiotropium [Spiriva] 1 puff IH DAILY 09/28/17 [History] Hydralazine HCl 100 mg PO TID #90 tablet 10/04/17 [Rx] Carvedilol [Coreg] 25 mg PO BIDWM 30 Days #30 tablet 11/21/17 [Rx] cloNIDine HCl [CloNIDine HCl] 0.1 mg PO TID 30 Days #90 tablet 11/21/17 [Rx] metOLazone [Zaroxolyn] 5 mg PO DAILY@0730 30 Days #30 tablet 11/21/17 [Rx] Aspirin [Lo-Dose Aspirin EC] 81 mg PO DAILY 12/15/17 [History] Insulin Regular U-500 [HumuLIN R U-500] 2 - 6 unit SQ TID 12/15/17 [History] NIFEdipine [Nifedipine ER] 90 mg PO DAILY 12/15/17 [History] Sevelamer [Renvela] 800 mg PO TID 12/15/17 [History] Trazodone HCl 100 mg PO HS 12/15/17 [History] Fenofibrate Nanocrystallized [Fenofibrate] 160 mg PO DAILY 03/02/18 [History] Furosemide [Lasix] 40 mg PO DAILY 03/02/18 [History] Miconazole 2% cream [Coby Antifungal] 1 appl TP BID tube 03/16/18 [Rx] Ipratropium/Albuterol Neb [Duoneb] 3 ml IH Q4-6H PRN 05/04/18 [History] Vancomycin [Vancocin] 1 each IVPB RPHPROT PRN #60 vial 05/14/18 [Rx] Cholecalciferol (Vitamin D3) [Vitamin D] 50,000 unit PO QWEEK 10/16/18 [History] Metoprolol [Lopressor] 50 mg PO BID 10/16/18 [History] Potassium Chloride [K-Tab ER] 20 meq PO BID 10/16/18 [History] Allergy/AdvReac Type Severity Reaction Status Date / Time morphine Allergy Hallucinati Verified 03/02/18 06:36 ng Sulfa (Sulfonamide Allergy Rash Verified 03/02/18 06:36 Antibiotics) All Systems PM: A 10-system review of systems was performed and is negative for pertinent findings except as documented above in the HPI. - Constitutional Vitals: Temp Pulse Resp BP Pulse Ox 97.4 F L 77 18 156/54 98 10/16/18 07:25 10/16/18 12:40 10/16/18 12:40 10/16/18 12:40 10/16/18 12:40 Exam: General: NAD, good eye contact, chronically ill appearing Head: Atraumatic, normocephalic. Face symmetric Eyes: EOMI, sclerae anicteric ENT: Mucous membranes moist. Normal oral mucosa. Trachea midline. Thoracic: No visible chest wall deformities. Normal breath sounds b/l, no wheezing or crackles Cardio: Normal S1 and S2, regular rate and rhythm, no murmurs Abdomen: Soft, nondistended. Does have tenderness to palpation in epigastrium Extremities: Warm, well perfused. DP pulses 2+ b/l. No clubbing, cyanosis. No edema. LUE AVF Skin: Intact. No rashes, bruises, or ulcers Neuro: Awake, fully oriented. Good memory, concentration, attention. Speech fluent. CN II-XII grossly intact. Strength 5/5 in b/l UE and LE Internal Med - H&P Results - Labs CBC & Chem 7: 10/16/18 08:25 10/16/18 08:25 Labs: Short CBC 10/16/18 Range/Units 08:25 WBC 10.6 (4.3-11.1) K/mcL Hgb 13.0 (11.5-15.4) g/dL Hct 39.2 (35.3-44.9) % Plt Count 199 (140-400) K/mcL Neutrophils # 7.6 (1.6-8.9) K/mcL BMP 10/16/18 08:25 Sodium 129 L Potassium 4.4 Chloride 90 L Carbon Dioxide 23 BUN 61 H Creatinine 6.55 H Glucose 118 H Calcium 10.2 Liver Function 10/16/18 Range/Units 08:25 Total Bilirubin 0.5 (0.3-1.0) mg/dL Direct Bilirubin 0.1 (0.0-0.2) mg/dL AST 12 L (13-39) Units/L ALT 11 (7-52) Units/L Alkaline Phosphatase 77 (34-104) Units/L Albumin 4.1 (3.5-5.7) g/dL - Impressions ITS Impressions Abdomen/Pelvis CT 10/16/18 10:10 IMPRESSION: 1. Cholelithiasis. 2. Question cirrhotic appearance of the liver. Correlate liver function enzymes. 3. Fat-containing periumbilical hernia. 4. Bilateral adrenal adenomas. D/ / 10/16/2018 11:10:29 Frank Alvarez MD / [facility] Interpreting Provider: Frank Alvarez MD - Summary of Assessment and Plan Summary of Assessment and Plan: Alains Garcia is a 68 F w hx ESRD on HD TRS, HFpEF, CAD s/p PCI, HTN, HLD, DM2, COPD, RA, anx/bpd, obesity, smoker, who p/w abd pain, elevated lipase 300, and CT showing only numerous gallstones without other acute findings, suggestive of acute pancreatitis. Acute pancreatitis: abd pain and elevated lipase, and CT showing multiple gallstones and therefore possibly gallstone pancreatitis - check lipids - NPO - defer fluid management to Neph per phone discussion - supportive care: zofran and phenergan prn nausea, tylenol and oxycodone SL prn pain - GenSurg consult for nonemergent lap tony prior to discharge ESRD: on HD TRS, Neph consulted for HD HFpEF: not overloaded, holding home lasix 40 and metolazone 5 qpm, HD as above HTN: uncontrolled, home nifedipine 90, coreg 25 bid, clonidine 0.1 tid, hydral 100 tid, plus HD CAD: home ASA, plavix, crestor, ranexa COPD: home spiriva, duonebs prn Anx/bpd: home xanax 1 bid, cymbalta 60, risperdal 1 qhs, trazodone 100 PPx: sqh Tele: no Activity: up ad kali FEN: renal ADA 1.5L, no MIVF Lines: PIV Consults: Neph Code: Full Dispo: patient requires inpatient eval and management at this time. Anticipate 2-3 days. Will be homegoing
[2018-10-16 13:28] LABS: Hepatitis B Surface Antibody 3.24 mIU/mL
[2018-10-16 13:41] LABS: Hepatitis B Surface Antigen Nonreactive (Nonreactive)
[2018-10-16] MEDS ORDERED: 0.9 % Sodium Chloride 250 ML IVC PRN (14:06)
[2018-10-16] MEDS ORDERED: *HR* HYDROcodone/Acet 5/325 mg TABLET PO PRN (14:14)
[2018-10-16] MEDS ORDERED: 0.9 % Sodium Chloride 1,000 ML PRIME SCH (14:15)
[2018-10-16] MEDS: cloNIDine HCl 0.1 MG TABLET PO SCH ×2 (16:04→22:10)
[2018-10-16] MEDS: hydrALAZINE 25 MG TABLET PO SCH ×2 (16:04→22:10)
[2018-10-16] MEDS: *HR* Heparin 5,000 UNIT/ML VIAL SQ SCH (16:53)
[2018-10-16] MEDS ORDERED: risperiDONE 1 MG TABLET PO SCH (21:00)
[2018-10-16] MEDS ORDERED: traZODone 50 MG TABLET PO SCH (21:00)
[2018-10-16] MEDS: Ranolazine 500 MG TAB.ER.12H PO SCH (22:10)
[2018-10-16] MEDS: ALPRAZolam 1 MG TABLET PO SCH (22:10)
[2018-10-17] MEDS: 0.9 % Sodium Chloride 1,000 ML IVC SCH ×2 (00:05→08:51)
[2018-10-17] MEDS: *HR* Heparin 5,000 UNIT/ML VIAL SQ SCH ×3 (00:20→16:34)
[2018-10-17 06:52] LABS: Hematocrit 37.6 % (35.3-44.9); Hemoglobin 12.2 g/dL (11.5-15.4); Mean Corpuscular HGB Conc 32.4 g/dL (31.6-35.5); Mean Corpuscular Hemoglobin 30.8 pg (28.0-33.3); Mean Corpuscular Volume 94.9 fL (83.0-100.0); Platelet Count 183 K/mcL (140-400); Red Blood Count 3.96 M/mcL (3.82-4.97); Red Cell Distribution Width 13.2 % (11.5-14.5); White Blood Count 8.5 K/mcL (4.3-11.1)
[2018-10-17 07:11] LABS: Calcium 9.4 mg/dL (8.6-10.3); Phosphorous 5.1 mg/dL (2.7-4.5); Potassium 4.4 mEq/L (3.5-5.1)
--- NOTE | 2018-10-17 07:33 | Internal Med Progress Note ---
Hospitalist Progress Note - Encounter Date of Encounter: 10/17/18 Time of Encounter: 11:58 - Subjective Interval History: No acute events overnight. Seen by surgery this am - Exam Vitals: Temp Pulse Resp BP Pulse Ox 98.6 F 70 18 145/66 96 10/17/18 06:50 10/17/18 06:50 10/17/18 06:50 10/17/18 06:50 10/17/18 06:50 Exam: General: NAD, good eye contact, chronically ill appearing Head: Atraumatic, normocephalic. Face symmetric Eyes: EOMI, sclerae anicteric ENT: Mucous membranes moist. Normal oral mucosa. Trachea midline. Thoracic: No visible chest wall deformities. Normal breath sounds b/l, no wheezing or crackles Cardio: Normal S1 and S2, regular rate and rhythm, no murmurs Abdomen: Soft, nondistended. Does have tenderness to palpation in epigastrium Extremities: Warm, well perfused. DP pulses 2+ b/l. No clubbing, cyanosis. No edema. LUE AVF Skin: Intact. No rashes, bruises, or ulcers Neuro: Awake, fully oriented. Good memory, concentration, attention. Speech fluent. CN II-XII grossly intact. Strength 5/5 in b/l UE and LE - Assessment and Plan (1) Gall stone pancreatitis Current Visit: Yes Status: Acute Assessment and Plan: Pt comes in with abdominal pain and elevated lipase with CT abdomen showing multiple gallstones Patient is NPO and started on IV fluids. Seen by surgery and plan for cholecystectomy (2) Pancreatitis Current Visit: Yes Status: Acute Assessment and Plan: See #1. NPO, IV fluids and pain control (3) ESRD (end stage renal disease) on dialysis Current Visit: Yes Status: Chronic Assessment and Plan: Resume dialysis per schedule (4) Hypertension Current Visit: Yes Status: Acute Assessment and Plan: Continue home meds (5) Diabetes mellitus Current Visit: Yes Status: Chronic Assessment and Plan: Continue insulin and monitor fingersticks (6) COPD (chronic obstructive pulmonary disease) Current Visit: Yes Status: Acute Assessment and Plan: Nebs PRN. No acute exacerbation (7) DVT prophylaxis Current Visit: Yes Status: Acute Assessment and Plan: Heparin sc - Time Spent with Patient Total time spent is greater than 50% in coordination of care (as documented) at patient's floor/unit and/or counseling patient: Internal Medicine: Result - Labs CBC & Chem 7: 10/17/18 06:35 10/17/18 06:35 Labs: Short CBC 10/16/18 10/17/18 Range/Units 08:25 06:35 WBC 10.6 8.5 (4.3-11.1) K/mcL Hgb 13.0 12.2 (11.5-15.4) g/dL Hct 39.2 37.6 (35.3-44.9) % Plt Count 199 183 (140-400) K/mcL Neutrophils # 7.6 (1.6-8.9) K/mcL BMP 10/16/18 10/17/18 08:25 06:35 Sodium 129 L 134 L Potassium 4.4 4.4 Chloride 90 L 97 L Carbon Dioxide 23 26 BUN 61 H 28 H Creatinine 6.55 H 4.39 H Glucose 118 H 117 H Calcium 10.2 9.4 Liver Function 10/16/18 Range/Units 08:25 Total Bilirubin 0.5 (0.3-1.0) mg/dL Direct Bilirubin 0.1 (0.0-0.2) mg/dL AST 12 L (13-39) Units/L ALT 11 (7-52) Units/L Alkaline Phosphatase 77 (34-104) Units/L Albumin 4.1 (3.5-5.7) g/dL - Impressions Impressions Abdomen/Pelvis CT 10/16/18 10:10 IMPRESSION: 1. Cholelithiasis. 2. Question cirrhotic appearance of the liver. Correlate liver function enzymes. 3. Fat-containing periumbilical hernia. 4. Bilateral adrenal adenomas. D/ / 10/16/2018 11:10:29 Frank Alvarez MD / [facility] Interpreting Provider: Frank Alvarez MD Consult Discharge Plan - Plan Referrals: Jay Valenzuela DO [Primary Care Provider] - (2) Pancreatitis Qualifiers: Chronicity: acute Pancreatitis type: unspecified pancreatitis type Acute pancreatitis complication: unspecified Qualified Code(s): K85.90 - Acute pancreatitis without necrosis or infection, unspecified (4) Hypertension Qualifiers: Hypertension type: essential hypertension Qualified Code(s): I10 - Essential (primary) hypertension (5) Diabetes mellitus Qualifiers: Diabetes mellitus type: type 2 Diabetes mellitus longterm insulin use: with longterm use Diabetes mellitus complication status: with kidney complications Diabetes mellitus complication detail: with chronic kidney disease Chronic kidney disease stage: stage 4 (severe) Qualified Code(s): E11.22 - Type 2 diabetes mellitus with diabetic chronic kidney disease; N18.4 - Chronic kidney disease, stage 4 (severe); Z79.4 - shelter (current) use of insulin (6) COPD (chronic obstructive pulmonary disease) Qualifiers: Qualified Code(s): J44.9 - Chronic obstructive pulmonary disease, unspecified
--- NOTE | 2018-10-17 07:57 | AcuteCare Surgery Consult Note ---
Date of Encounter: 10/17/18 Time of Encounter: 08:00 Assessment and Plan (1) Acute gallstone pancreatitis Current Visit: Yes Status: Acute Pt diagnosis of acute gallstone pancreatitis is discussed. Laparoscopic Cholecystectomy with IOC is recommended. Procedure for the surgery, risks and benefits are discussed in detail. Possible known complications for Laparoscopic Cholecystectomy with IOC are bleeding, infection, bile duct injury, bile leak, small intestine or stomach injury, stroke, DVT/PE, [place] or . Pt understands these risks, which in this case are moderate due to pt's comorbidities and DAPT. Pt wishes to proceed with surgery as soon as possible. Informed consent is obtained. Pt condition is stable. Surgery is scheduled. Hold ASA/Plavix until after surgery. Maintain NPO. (2) ESRD (end stage renal disease) on dialysis Current Visit: Yes Status: Chronic Stable. Next dialysis is 10/19. (3) CAD (coronary artery disease) Current Visit: No Status: Acute Stable. Hold DAPT. Qualifiers: Associated angina: without angina Qualified Code(s): I25.10 - Atherosclerotic heart disease of [place] coronary artery without angina pectoris (4) COPD (chronic obstructive pulmonary disease) Current Visit: No Status: Acute Stable; continue home meds. Qualifiers: COPD type: unspecified COPD Qualified Code(s): J44.9 - Chronic obstructive pulmonary disease, unspecified (5) HTN (hypertension) Current Visit: No Status: Acute Stable; continue home meds. Qualifiers: Hypertension type: essential hypertension Qualified Code(s): I10 - Essential (primary) hypertension (6) Heart failure, diastolic, with acute decompensation Current Visit: No Status: Acute Stable; continue home meds. History of Present Illness Requesting physician: Jose Angel Wren History of present illness: This 68 y/o female pt presents to [facility] c/o severe epigastric pain and RUQ abdominal pain. Pt reports pain is severe and unrelenting. Pt c/o LUQ pain as well. Pt reports pain radiates into back. Pt reports intractable nausea and vomiting. Pt denies changes in BM. Pt denies CP or SOB. Pt denies fever. She is found to have acute gallstone pancreatitis on admission. Past Med Surg Social Fam HX - Past Medical History Medical history: arthritis, CHF, COPD, diabetes, dialysis, GERD, hyperlipidemia, hypertension, RA, renal disease Additional medical history: HUSAM, Morbid obesity Psychiatric history: anxiety, bipolar - Past Surgical History Surgical History: angioplasty/stent, appendectomy, , cataract Additional surgical history: Heart catheterizatio w/ intervention/ cardiac stent (Patient states 8-9 years ago) and she takes clopidogrel (Plavix) and aspirin. - Social History Smoking Status: Current every day smoker Packs per day: 1 Smokeless Tobacco Status: No Alcohol use: none Drug use: none - Family History Mother Living Status: Still Living Hx Family Cardiac Disorders: Yes Hx Family Respiratory Disorders: Yes (copd) Hx Family Cancer: Yes Hx Family Neurologic Disorders: Yes (alzheimer) Father Living Status: Hx Family Cardiac Disorders: Yes Hx Family Neurologic Disorders: Yes (Brain aneurysm) Brother Hx Family Endocrine Disorder: Yes (DM) Sister Living Status: Hx Family Endocrine Disorder: Yes (DM) Medications and Allergies ALPRAZolam [Xanax 1 MG Tablet] 1 mg PO BID 04/15/17 [History] Clopidogrel [Plavix] 75 mg PO DAILY 04/15/17 [History] DULoxetine [Cymbalta] 30 mg PO BID 04/15/17 [History] Famotidine [Heartburn Prevention] 20 mg PO BID 04/15/17 [History] risperiDONE [Risperidone] 1 mg PO HS 04/15/17 [History] Ranolazine [Ranexa] 500 mg PO BID 07/23/17 [History] Rosuvastatin [Crestor] 40 mg PO QPM 07/23/17 [History] HYDROcodone/Acet 5/325 mg [[place] 5-325 mg] 1 tab PO BID PRN 09/28/17 [History] Tiotropium [Spiriva] 1 puff IH DAILY 09/28/17 [History] Hydralazine HCl 100 mg PO TID #90 tablet 10/04/17 [Rx] Carvedilol [Coreg] 25 mg PO BIDWM 30 Days #30 tablet 11/21/17 [Rx] cloNIDine HCl [CloNIDine HCl] 0.1 mg PO TID 30 Days #90 tablet 11/21/17 [Rx] metOLazone [Zaroxolyn] 5 mg PO DAILY@0730 30 Days #30 tablet 11/21/17 [Rx] Aspirin [Lo-Dose Aspirin EC] 81 mg PO DAILY 12/15/17 [History] Insulin Regular U-500 [HumuLIN R U-500] 2 - 6 unit SQ TID 12/15/17 [History] NIFEdipine [Nifedipine ER] 90 mg PO DAILY 12/15/17 [History] Sevelamer [Renvela] 800 mg PO TID 12/15/17 [History] Trazodone HCl 100 mg PO HS 12/15/17 [History] Fenofibrate Nanocrystallized [Fenofibrate] 160 mg PO DAILY 03/02/18 [History] Furosemide [Lasix] 40 mg PO DAILY 03/02/18 [History] Miconazole 2% cream [Coby Antifungal] 1 appl TP BID tube 03/16/18 [Rx] Ipratropium/Albuterol Neb [Duoneb] 3 ml IH Q4-6H PRN 05/04/18 [History] Vancomycin [Vancocin] 1 each IVPB RPHPROT PRN #60 vial 05/14/18 [Rx] Cholecalciferol (Vitamin D3) [Vitamin D] 50,000 unit PO QWEEK 10/16/18 [History] Metoprolol [Lopressor] 50 mg PO BID 10/16/18 [History] Potassium Chloride [K-Tab ER] 20 meq PO BID 10/16/18 [History] Allergy/AdvReac Type Severity Reaction Status Date / Time morphine Allergy Hallucinati Verified 03/02/18 06:36 ng Sulfa (Sulfonamide Allergy Rash Verified 03/02/18 06:36 Antibiotics) Review of Systems All systems PM: The remainder of the systems were reviewed and are negative - Constitutional chills, fatigue, fever(s), night sweats, weakness, no anorexia - EENT Nose, mouth and throat: dry mouth, dysphagia, nasal congestion, nasal discharge, sinus pain, sinus pressure, sore throat - Cardiovascular no chest pain, no diaphoresis, no dyspnea, no edema - Respiratory no cough, no dyspnea, no wheezing - Gastrointestinal abdominal pain, bloating, heartburn, nausea, vomiting, no belching, no constipation, no diarrhea, no hematemesis - Genitourinary Genitourinary: flank pain, no dysuria, no urinary frequency - Musculoskeletal back pain, no joint swelling, no limited range of motion, no neck pain - Integumentary no dry skin, no pruritus, no rash, no wounds, no jaundice - Neurological no confusion, no dizziness, no focal weakness, no weakness - Psychiatric no anxiety, no depression - Endocrine no fatigue - Hematologic/Lymphatic no easy bleeding, no easy bruising General Surgery Exam Initial Vital Signs Temp Pulse Resp BP Pulse Ox 97.4 F L 78 18 153/78 95 10/16/18 07:25 10/16/18 07:25 10/16/18 07:25 10/16/18 07:25 10/16/18 07:25 - General physical appearance no distress, moderate pain. negative: jaundice - Eyes PERRL, normal ocular movement. negative: icteric - ENT normal mucosa, no congestion. negative: nasal discharge - Neck no masses, trachea midline, no lymphadectomy, no venous distension - Respiratory normal respiratory effort, clear to auscultation - Cardiovascular Cardiovascular exam: Present: RRR. Absent: JVD - Abdomen Abdomen general surgery: Present: bowel sounds present, tender, guarding. Absent: distended, rebound Abdominal Tenderness: Present: epigastic, RUQ, LUQ - Genitourinary Present: normal external genitalia - Integumentary Integumentary general surgery: Present: warm and dry - Neurologic Present: CN 2-12 grossly intact, normal coordination - Musculoskeletal Present: normal gait, normal posture - Psychiatric Psychiatric general surgery: Present: A&Ox3, appropriate Exam Initial Vital Signs Temp Pulse Resp BP Pulse Ox 97.4 F L 78 18 153/78 95 10/16/18 07:25 10/16/18 07:25 10/16/18 07:25 10/16/18 07:25 10/16/18 07:25 Results - Labs 10/17/18 06:35 10/17/18 06:35 Abnormal lab results MPV 9.0 fL (9.4-12.4) L 10/17/18 06:35 Sodium 134 mEq/L (136-145) L 10/17/18 06:35 Chloride 97 mEq/L (98-107) L 10/17/18 06:35 BUN 28 mg/dL (8-23) H 10/17/18 06:35 Creatinine 4.39 mg/dL (0.60-1.20) H 10/17/18 06:35 Est GFR ( Amer) 12 (> 60) L 10/17/18 06:35 Est GFR (Non-Af Amer) 10 (> 60) L 10/17/18 06:35 Glucose 117 mg/dL (70-105) H 10/17/18 06:35 Phosphorus 5.1 mg/dL (2.7-4.5) H 10/17/18 06:35 AST 12 Units/L (13-39) L 10/16/18 08:25 Lipase 316 Units/L (11-82) H 10/16/18 08:25 Hep Bs Antibody 3.24 mIU/mL (10.00-) L 10/16/18 08:25 Diabetes panel 10/16/18 10/17/18 Range/Units 08:25 06:35 Sodium 129 L 134 L (136-145) mEq/L Potassium 4.4 4.4 (3.5-5.1) mEq/L Chloride 90 L 97 L (98-107) mEq/L Carbon Dioxide 23 26 (23-29) mEq/L BUN 61 H 28 H (8-23) mg/dL Creatinine 6.55 H 4.39 H (0.60-1.20) mg/dL Glucose 118 H 117 H (70-105) mg/dL Calcium 10.2 9.4 (8.6-10.3) mg/dL AST 12 L (13-39) Units/L ALT 11 (7-52) Units/L Alkaline Phosphatase 77 (34-104) Units/L Albumin 4.1 (3.5-5.7) g/dL Triglycerides 139 (< 150) mg/dL HDL Cholesterol 51 (40-59) mg/dL Calcium panel 10/16/18 10/17/18 Range/Units 08:25 06:35 Calcium 10.2 9.4 (8.6-10.3) mg/dL Phosphorus 5.1 H (2.7-4.5) mg/dL Albumin 4.1 (3.5-5.7) g/dL Pituitary panel 10/16/18 10/17/18 Range/Units 08:25 06:35 Sodium 129 L 134 L (136-145) mEq/L Potassium 4.4 4.4 (3.5-5.1) mEq/L Chloride 90 L 97 L (98-107) mEq/L Carbon Dioxide 23 26 (23-29) mEq/L BUN 61 H 28 H (8-23) mg/dL Creatinine 6.55 H 4.39 H (0.60-1.20) mg/dL Glucose 118 H 117 H (70-105) mg/dL Calcium 10.2 9.4 (8.6-10.3) mg/dL Adrenal panel 10/16/18 10/17/18 Range/Units 08:25 06:35 Sodium 129 L 134 L (136-145) mEq/L Potassium 4.4 4.4 (3.5-5.1) mEq/L Chloride 90 L 97 L (98-107) mEq/L Carbon Dioxide 23 26 (23-29) mEq/L BUN 61 H 28 H (8-23) mg/dL Creatinine 6.55 H 4.39 H (0.60-1.20) mg/dL Glucose 118 H 117 H (70-105) mg/dL Calcium 10.2 9.4 (8.6-10.3) mg/dL Total Bilirubin 0.5 (0.3-1.0) mg/dL AST 12 L (13-39) Units/L ALT 11 (7-52) Units/L Alkaline Phosphatase 77 (34-104) Units/L Albumin 4.1 (3.5-5.7) g/dL All other labs normal. - Imaging CT scan - abdomen: image reviewed (gallstone pancreatitis) CT scan - pelvis: image reviewed Consult Discharge Plan - Plan Referrals: Jay Valenzuela DO [Primary Care Provider] -
[2018-10-17] MEDS: cloNIDine HCl 0.1 MG TABLET PO SCH ×2 (08:52→16:33)
[2018-10-17] MEDS: ALPRAZolam 1 MG TABLET PO SCH (08:54)
[2018-10-17] MEDS: Ranolazine 500 MG TAB.ER.12H PO SCH ×2 (08:54→21:41)
[2018-10-17] MEDS: hydrALAZINE 25 MG TABLET PO SCH ×2 (08:54→16:33)
[2018-10-17] MEDS ORDERED: Famotidine 20 MG TABLET PO SCH (09:00)
[2018-10-17] MEDS ORDERED: Aspirin Enteric Coated 81 MG Tablet PO SCH (09:00)
[2018-10-17] MEDS ORDERED: NIFEdipine XL (24 HR) 30 MG TAB.ER.24 PO SCH (09:00)
[2018-10-17] MEDS ORDERED: Nicotine 21 MG PATCH.TD24 TD SCH (09:15)
--- NOTE | 2018-10-17 09:26 | Nephrology Progress Note ---
Date of Encounter: 10/17/18 Time of Encounter: 09:24 - Assessment and Plan (1) ESRD (end stage renal disease) Current Visit: No Status: Acute HD TRS via left upper arm fistula Renal diet when ok to eat. Renal dose medications. Plan for dialysis Thursday Will assess daily for the need for extra dialysis. No need for dialysis today. (2) Abdominal pain Current Visit: Yes Status: Acute Qualifiers: Abdominal location: epigastric Qualified Code(s): R10.13 - Epigastric pain (3) Pancreatitis Current Visit: Yes Status: Acute Qualifiers: Chronicity: acute Pancreatitis type: unspecified pancreatitis type Acute pancreatitis complication: unspecified Qualified Code(s): K85.90 - Acute pancreatitis without necrosis or infection, unspecified (4) HTN (hypertension) Current Visit: No Status: Acute Qualifiers: Hypertension type: essential hypertension Qualified Code(s): I10 - Essential (primary) hypertension (5) Hyponatremia Current Visit: No Status: Acute (6) Anxiety Current Visit: No Status: Chronic (7) Diabetes mellitus Current Visit: No Status: Chronic Qualifiers: Diabetes mellitus type: type 2 Diabetes mellitus detention insulin use: with detention use Chronic kidney disease stage: on chronic dialysis Qualified Code(s): E11.22 - Type 2 diabetes mellitus with diabetic chronic kidney disease; N18.6 - End stage renal disease; Z79.4 - detention (current) use of insulin; Z99.2 - Dependence on renal dialysis (8) Obesity Current Visit: No Status: Chronic Qualifiers: Obesity type: unspecified obesity type Obesity classification: adult class 3 (BMI >= 40) Serious obesity comorbidity presence: with serious comorbidity Body mass index: BMI 45.0-49.9 Qualified Code(s): E66.01 - Morbid (severe) obesity due to excess calories; Z68.42 - Body mass index (BMI) 45.0-49.9, adult Subjective Principal diagnosis: esrd trs Interval history: Ms. Brunson was seen. She is asleep. No new complaints. She successfully completed dialysis on Thursday. Objective - Vital Signs Vital signs: Vital Signs Temp Pulse Resp BP Pulse Ox 10/17/18 06:50 98.6 F 70 18 145/66 96 10/17/18 04:30 98.8 F 68 14 132/60 93 10/16/18 23:58 98.5 F 67 16 136/79 94 10/16/18 19:12 97.5 F L 98 18 160/84 96 10/16/18 18:55 97.6 F 15 144/71 10/16/18 18:30 132/80 10/16/18 18:15 145/81 10/16/18 18:00 148/77 10/16/18 17:45 143/81 10/16/18 17:30 153/79 10/16/18 17:15 147/69 10/16/18 17:00 159/75 10/16/18 16:45 152/77 10/16/18 16:30 147/78 10/16/18 16:15 158/7 10/16/18 16:00 157/69 10/16/18 15:45 150/54 10/16/18 15:30 165/67 10/16/18 15:15 175/70 10/16/18 15:00 98.6 F 15 184/64 10/16/18 14:10 98.2 F 60 16 156/82 96 10/16/18 12:40 77 18 156/54 98 10/16/18 10:57 72 18 165/59 98 Intake and Output 10/16/18 10/17/18 10/17/18 23:59 07:59 15:59 Intake Total 1000 / 1500 0 / 0 Output Total 3501 / 3501 Balance -2500 / 0 / 0 Intake: IV Fluids 1000 / 1000 0.9 % Sodium Chloride 1,000 ML 1000 / 1000 @ 100 mls/hr IVC .Q10H [facility] Rx#: [id number] Oral 0 / 0 Output: Urine / Total Dialysis (HD) Output 3500 / 3500 Other: Weight 106.3 kg Blood Glucose* 125 109 Hemodialysis Net Fluid Removed 3000 (mL) Patient Weight 10/17/18 23:59 Weight 106.3 kg - General Appearance General appearance: Present: well-developed, well-nourished EENT: Present: ATNC Cardiology: Present: regular rate - Lab 10/17/18 06:35 10/17/18 06:35 Most recent lab results 10/17/18 06:35 Calcium 9.4 Phosphorus 5.1 H Magnesium 2.0 Consult Discharge Plan - Plan Referrals: Jay Valenzuela DO [Primary Care Provider] -
[2018-10-17] MEDS ORDERED: Tiotropium 18 MCG inhalation IH SCH (10:00)
[2018-10-17] MEDS ORDERED: ceFAZolin 2,000 MG in Water for inj. (sterile) 20 ML IVP ONE (11:42)
[2018-10-17] MEDS ORDERED: Ipratropium/Albuterol Neb 3 ML IH PRN ×2 (12:05→16:09)
[2018-10-17] MEDS ORDERED: 0.9 % Sodium Chloride 500 ML ONE (12:51)
--- NOTE | 2018-10-17 12:57 | Anesthesia Evaluation PreOp ---
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 History: Denies Any Significant HX Other Medical History: Renal (ESRD dialyzed yesterday), Diabetes Type II, Other (Obesity) Anesthesia History: No Prior Anesthetic Complications : No Alcohol Use: none Drug use: none Medications and Allergies ALPRAZolam [Xanax 1 MG Tablet] 1 mg PO BID 04/15/17 [History] Clopidogrel [Plavix] 75 mg PO DAILY 04/15/17 [History] DULoxetine [Cymbalta] 30 mg PO BID 04/15/17 [History] Famotidine [Heartburn Prevention] 20 mg PO BID 04/15/17 [History] risperiDONE [Risperidone] 1 mg PO HS 04/15/17 [History] Ranolazine [Ranexa] 500 mg PO BID 07/23/17 [History] Rosuvastatin [Crestor] 40 mg PO QPM 07/23/17 [History] HYDROcodone/Acet 5/325 mg [Dwight 5-325 mg] 1 tab PO BID PRN 09/28/17 [History] Tiotropium [Spiriva] 1 puff IH DAILY 09/28/17 [History] Hydralazine HCl 100 mg PO TID #90 tablet 10/04/17 [Rx] Carvedilol [Coreg] 25 mg PO BIDWM 30 Days #30 tablet 11/21/17 [Rx] cloNIDine HCl [CloNIDine HCl] 0.1 mg PO TID 30 Days #90 tablet 11/21/17 [Rx] metOLazone [Zaroxolyn] 5 mg PO DAILY@0730 30 Days #30 tablet 11/21/17 [Rx] Aspirin [Lo-Dose Aspirin EC] 81 mg PO DAILY 12/15/17 [History] Insulin Regular U-500 [HumuLIN R U-500] 2 - 6 unit SQ TID 12/15/17 [History] NIFEdipine [Nifedipine ER] 90 mg PO DAILY 12/15/17 [History] Sevelamer [Renvela] 800 mg PO TID 12/15/17 [History] Trazodone HCl 100 mg PO HS 12/15/17 [History] Fenofibrate Nanocrystallized [Fenofibrate] 160 mg PO DAILY 03/02/18 [History] Furosemide [Lasix] 40 mg PO DAILY 03/02/18 [History] Miconazole 2% cream [Coby Antifungal] 1 appl TP BID tube 03/16/18 [Rx] Ipratropium/Albuterol Neb [Duoneb] 3 ml IH Q4-6H PRN 05/04/18 [History] Vancomycin [Vancocin] 1 each IVPB RPHPROT PRN #60 vial 05/14/18 [Rx] Cholecalciferol (Vitamin D3) [Vitamin D] 50,000 unit PO QWEEK 10/16/18 [History] Metoprolol [Lopressor] 50 mg PO BID 10/16/18 [History] Potassium Chloride [K-Tab ER] 20 meq PO BID 10/16/18 [History] Allergy/AdvReac Type Severity Reaction Status Date / Time morphine Allergy Hallucinati Verified 03/02/18 06:36 ng Sulfa (Sulfonamide Allergy Rash Verified 03/02/18 06:36 Antibiotics) - Meds/Allergy Pre-op Review Medications Reviewed: Yes Allergies Reviewed: Yes Beta Blockers on Current Med List: No Anesthesia Results - Labs 10/17/18 06:35 10/17/18 06:35 - Imaging EKG: report reviewed (SR) Additional studies: ECHO EF 60%, no pulm htn Anesthesia Exam O2 Sat Weight 106.3 kg O2 Sat by Pulse Oximetry 92 O2 Sat by Pulse Oximetry 96 O2 Sat by Pulse Oximetry 96 O2 Sat by Pulse Oximetry 93 O2 Sat by Pulse Oximetry 94 O2 Sat by Pulse Oximetry 96 O2 Sat by Pulse Oximetry 96 Vital Signs Temp Pulse Resp BP Pulse Ox 97.4 F L 78 18 153/78 95 10/16/18 07:25 10/16/18 07:25 10/16/18 07:25 10/16/18 07:25 10/16/18 07:25 Height: 5'5 Weight: 234 lbs NPO (# of Hours): MN Pain Scale: 0 - HEENT Pupil (Motor): Pupils equal, EOMI Mallampati: III Teeth: Edentulous Oral Opening: Less than or equal to 3 - KNITTING INSPECTOR LOC: Oriented KNITTING INSPECTOR Motor: Normal RUE, Normal LUE, Normal RLE, Normal LLE, Normal Face KNITTING INSPECTOR Sensory: Normal: RUE, LUE, RLE, LLE, Face - Cardiac Rhythm: Regular Murmur: None JVD: No Carotid Bruit: No - Pulmonary Breath Sounds: bilateral Clear Respiratory Effort: Symmetrical Anesthesia Assess/Plan ASA Score: 3 (ESRD HTN) Level of consciousness: Cooperative, Oriented Anesthetic Plan: General Autologous Blood: No Monitoring Plan: Standard Monitors Recovery Plan: PACU (Discussed GA, agrees to proceed)
[2018-10-17] MEDS ORDERED: Acetaminophen IV 1,000 MG/100 ML INFUS..BTL ONE (13:16)
[2018-10-17] MEDS ORDERED: Famotidine 20 MG/2 ML VIAL ONE (13:17)
[2018-10-17] MEDS ORDERED: Bupivacaine/EPI 1:200k 0.5%PF 30 ML VIAL ONE (13:24)
[2018-10-17] MEDS ORDERED: Isovue-300 50 ML VIAL ONE (13:24)
[2018-10-17] MEDS ORDERED: *HR* Vasopressin 20 UNIT/ML VIAL ONE (14:01)
[2018-10-17] MEDS ORDERED: EPHEDrine 50 MG/ML VIAL ONE (14:08)
[2018-10-17] MEDS ORDERED: Ondansetron 4 MG/2 ML VIAL ONE (14:08)
[2018-10-17] MEDS ORDERED: Lidocaine -MPF 2% 2 ML VIAL ONE (14:08)
[2018-10-17] MEDS ORDERED: *HR* Rocuronium Bromide 50 MG/5 ML VIAL ONE (14:08)
[2018-10-17] MEDS ORDERED: Dexamethasone 4 MG/ML VIAL ONE (14:08)
[2018-10-17] MEDS ORDERED: *HR* Propofol 200 MG/20 ML VIAL IVP ONE (14:08)
[2018-10-17] MEDS ORDERED: Lidocaine HCL 4 ML Topical Solution (Laryng-O-Jet Kit Sterile Pak) TP ONE (14:08)
[2018-10-17] MEDS ORDERED: *HR* FentaNYL (PF) 100 MCG/2 ML VIAL ONE (14:08)
[2018-10-17] MEDS ORDERED: *HR* PHENYLEPHRINE 1,000 MCG/10 ML SYRINGE IVP ONE (14:08)
[2018-10-17] MEDS ORDERED: Neostigmine Methylsulfate 3 MG/3 ML SYRINGE ONE (14:43)
--- NOTE | 2018-10-17 15:10 | Operative Note ---
Date of procedure: 10/17/18 Pre-op diagnosis: Acute gallstone pancreatitis Post-op diagnosis: same Procedure: Laparoscopic cholecystectomy with intraoperative cholangiogram Complications: None Anesthesia: GETA Surgeon: Gus Lawson Was there an assistant designer present: Yes Marketing Production Manager: Yudelka Liu Estimated blood loss (cc): 15 Specimen: Gallbladder Condition: stable Disposition: PACU Procedure in Detail: This 68 year-old female was taken to the operating room and placed in the supine position. The anterior abdominal wall is prepped and draped in the usual sterile fashion. A 1-2 cm curvilinear incision is made in the infraumbilical area and subcutaneous tissue was dissected down to anterior rectus fascia. Fascia is grasped with a Sujata clamp, stay sutures were placed in the fascia is divided. Posterior rectus fascia and peritoneum were elevated and divided in the same manner. A Koko port is inserted. Exploration of the intraabdominal cavity reveals an abnormal gallbladder but, normal appearing liver. Under direct visualization after the injection of 0.5% Marcaine the three right subcostal 5 mm ports were inserted. The patient is placed in reverse Trendelenburg position and rotated to the left. The gallbladder is grasped and retracted in cephalad direction. It is also grasped and retracted in the lateral direction. The cystic duct was carefully identified circumferentially dissected and clipped near the neck of the gallbladder. A cholecystodochotomy is made. A cholangiocatheter is placed in the cystic duct. A cholangiogram is obtained. There is easy filling of the CBD, common hepatic duct and hepatic radicals. Easy filling of the duodenum is appreciated. When the cholangiogram is completed, the catheter is removed. The cystic duct is doubly clipped and divided between clips. The cystic artery is also doubly clipped and divided between clips. The gallbladder is dissected off the liver bed using electrocautery. Hemostasis was perfected using electrocautery. The gallbladder is removed from the intra-abdominal cavity using an Endo Catch bag. Copious irrigation is carried out in the intra-abdominal cavity, Martinez's pouch and the gallbladder fossa. The pneumoperitoneum was allowed to escape under direct visualization. The ports were removed also under direct visualization. The fascia at the infraumbilical incision is closed using 0 Vicryl sutures. All skin incisions are closed using 4-0 Monocryl subcuticular stitches. Steri- Strips are placed. Sterile dressing is placed. Patient tolerated procedure well was taken to the PACU in good condition.
--- NOTE | 2018-10-17 15:22 | Anesthesia Evaluation Post Op ---
Date of Encounter: 10/17/18 Time of Encounter: 15:30 - Vital Signs Vital Signs: Vital Signs/O2 Sat/Glucose, Most Current Temp Pulse Resp BP Pulse Ox 10/17/18 15:15 57 16 127/59 98 10/17/18 15:05 97.8 F 58 16 125/63 100 10/17/18 11:30 98.1 F 67 18 98/54 92 - Lungs Lungs: Clear Ascult./Percussion - Airway Airway: Non-obstructed - Cardiovascular Regular Rate - Mental Status Mental Status: Alert & Oriented, Answers Appropriately - Pain Pain Scale: 0 - Nausea Vomiting Nausea Vomiting: Not Present - Hydration Hydration: Ice chips - Discharge PostOp Status: Transfer Patient to floor
[2018-10-17] MEDS ORDERED: Ondansetron 4 MG/2 ML VIAL IVP PRN (16:09)
[2018-10-17] MEDS ORDERED: Acetaminophen 325 MG TABLET PO PRN (16:09)
[2018-10-17] MEDS ORDERED: 0.9 % Sodium Chloride 1,000 ML PRIME SCH (16:09)
[2018-10-17] MEDS ORDERED: *HR* HYDROcodone/Acet 5/325 mg TABLET PO PRN (16:09)
[2018-10-17] MEDS ORDERED: 0.9 % Sodium Chloride 250 ML IVC PRN (16:09)
[2018-10-17] MEDS ORDERED: *HR* OxyCODONE/APAP 5/325 TABLET PO PRN (16:09)
[2018-10-17] MEDS ORDERED: 0.9 % Sodium Chloride 1,000 ML IVC SCH (16:09)
[2018-10-17] MEDS: Insulin LISPRO 300 UNITS/3 ML VIAL SQ SCH (17:02)
[2018-10-17] MEDS ORDERED: traZODone 50 MG TABLET PO SCH (21:00)
[2018-10-17] MEDS ORDERED: Insulin LISPRO 300 UNITS/3 ML VIAL SQ SCH (21:00)
[2018-10-17] MEDS ORDERED: risperiDONE 1 MG TABLET PO SCH (21:00)
[2018-10-18] MEDS: ALPRAZolam 1 MG TABLET PO SCH ×2 (00:23→08:23)
[2018-10-18] MEDS: *HR* Heparin 5,000 UNIT/ML VIAL SQ SCH ×2 (00:23→08:20)
[2018-10-18] MEDS: hydrALAZINE 25 MG TABLET PO SCH ×2 (05:19→08:23)
[2018-10-18] MEDS: cloNIDine HCl 0.1 MG TABLET PO SCH ×2 (05:19→08:23)
[2018-10-18 06:31] LABS: Hematocrit 37.3 % (35.3-44.9); Hemoglobin 12.2 g/dL (11.5-15.4); Mean Corpuscular HGB Conc 32.7 g/dL (31.6-35.5); Mean Corpuscular Hemoglobin 30.7 pg (28.0-33.3); Mean Platelet Volume 9.2 fL (9.4-12.4); Platelet Count 176 K/mcL (140-400); Red Blood Count 3.97 M/mcL (3.82-4.97); Red Cell Distribution Width 13.2 % (11.5-14.5)
[2018-10-18 06:35] LABS: White Blood Count 18.3 K/mcL (4.3-11.1)
[2018-10-18 06:49] LABS: Calcium 9.3 mg/dL (8.6-10.3); Magnesium 2.1 mg/dL (1.6-2.6); Phosphorous 6.7 mg/dL (2.7-4.5); Potassium 5.2 mEq/L (3.5-5.1)
[2018-10-18 06:54] VITALS: BP 113/70
[2018-10-18] MEDS: Insulin LISPRO 300 UNITS/3 ML VIAL SQ SCH (08:19)
[2018-10-18] MEDS: Ranolazine 500 MG TAB.ER.12H PO SCH (08:23)
--- NOTE | 2018-10-18 08:42 | AcuteCareSurgery Progress Note ---
Date of Encounter: 10/18/18 Time of Encounter: 08:00 - Assessment and Plan (1) Acute gallstone pancreatitis Current Visit: Yes Status: Acute The patient has done well from laparoscopic cholecystectomy. She continues to struggle with renal failure. Continue supportive care advance diet Subjective Narrative: The patient is seen and evaluated on morning rounds with the acute care surgery team. She has done well from laparoscopic cholecystectomy. Her intraoperative cholangiogram was negative. She is not complaining of any abdominal pain. It is noted that her renal failure is worsening. Nephrology is actively consulting. Advance diet. Objective Vital Signs - Last 8 Hours Temp Pulse Resp BP Pulse Ox 10/18/18 06:30 97.6 F 67 16 113/70 98 10/18/18 04:02 98.2 F 66 19 129/55 98 Intake and Output 10/17/18 10/18/18 10/18/18 23:59 07:59 15:59 Intake Total 951 / 971 100 / 100 Output Total 300 / 300 Balance 951 / 956 -200 / -200 Intake: IV Fluids 851 / 871 0.9 % Sodium Chloride 1,000 ML 800 / 800 @ 100 mls/hr IVC .Q10H [facility] Rx#: [id number] Phenergan 25 MG In 0.9 % Sodium 51 / 51 Chloride 50 ML @ 204 mls/hr IVPB ONCE ONE Rx#:[id number] Oral 100 / 100 100 / 100 Output: Urine 300 / 300 Other: Weight 106.8 kg Blood Glucose* 253 154 - General physical appearance no distress, no pain, chronically ill - Respiratory normal respiratory effort, clear to auscultation - Cardiovascular Cardiovascular exam: Present: RRR, no murmurs/rubs/gallops - Abdomen Abdomen: Present: bowel sounds present - Incision Incision: Present: clean and dry - Neurologic CN 2-12 grossly intact - Psychiatric oriented to time, oriented to person, oriented to place, speech is normal, memory intact - Labs 10/18/18 06:07 10/18/18 06:07 Diabetes panel 10/18/18 Range/Units 06:07 Sodium 131 L (136-145) mEq/L Potassium 5.2 H (3.5-5.1) mEq/L Chloride 96 L (98-107) mEq/L Carbon Dioxide 24 (23-29) mEq/L BUN 42 H (8-23) mg/dL Creatinine 5.89 H (0.60-1.20) mg/dL Glucose 169 H (70-105) mg/dL Calcium 9.3 (8.6-10.3) mg/dL Calcium panel 10/18/18 Range/Units 06:07 Calcium 9.3 (8.6-10.3) mg/dL Phosphorus 6.7 H (2.7-4.5) mg/dL Pituitary panel 10/18/18 Range/Units 06:07 Sodium 131 L (136-145) mEq/L Potassium 5.2 H (3.5-5.1) mEq/L Chloride 96 L (98-107) mEq/L Carbon Dioxide 24 (23-29) mEq/L BUN 42 H (8-23) mg/dL Creatinine 5.89 H (0.60-1.20) mg/dL Glucose 169 H (70-105) mg/dL Calcium 9.3 (8.6-10.3) mg/dL Adrenal panel 10/18/18 Range/Units 06:07 Sodium 131 L (136-145) mEq/L Potassium 5.2 H (3.5-5.1) mEq/L Chloride 96 L (98-107) mEq/L Carbon Dioxide 24 (23-29) mEq/L BUN 42 H (8-23) mg/dL Creatinine 5.89 H (0.60-1.20) mg/dL Glucose 169 H (70-105) mg/dL Calcium 9.3 (8.6-10.3) mg/dL Consult Discharge Plan - Plan Referrals: Jay Valenzuela DO [Primary Care Provider] -
[2018-10-18] MEDS ORDERED: Nicotine 21 MG PATCH.TD24 TD SCH (09:00)
[2018-10-18] MEDS ORDERED: NIFEdipine XL (24 HR) 30 MG TAB.ER.24 PO SCH (09:00)
[2018-10-18] MEDS ORDERED: Famotidine 20 MG TABLET PO SCH (09:00)
[2018-10-18] MEDS ORDERED: Aspirin Enteric Coated 81 MG Tablet PO SCH (09:00)
--- NOTE | 2018-10-18 09:11 | Discharge Summary ---
Date of Encounter: 10/18/18 Time of Encounter: 09:10 - Discharge Diagnosis (1) Gall stone pancreatitis Priority: Primary Status: Acute Assessment and Plan: a 68 F w hx ESRD on HD TRS, HFpEF, CAD s/p PCI, HTN, HLD, DM2, COPD, RA, anx/bpd, obesity, smoker, who p/w abd pain associated with nausea and numerous episodes vomiting. Pain began 3 days ago on thursday but subsided enough for her to tolerate HD on . However thursday it recurred and this time was more severe, unrelenting, and associated with nausea for which she's vomited last night and several more times today. Never had abd pain of this nature. Does state that she was told several years ago when her appendix burst that her gallbladder had stones and would need to come out. Denies fever, jaundice, diarrhea, any bleeding, CP, or SOB. She was assessed with abdominal pain and elevated lipase with CT abdomen showing multiple gallstones likely secondary to gall stone pancreatitis. She was seen by surgery and had a laparoscopic cholecystectomy performed. She tolerated procedure well with no acute complications. Her diet was advanced to a solid diet which she tolerated. She was discharged in a stable condition. 35 minutes was spent discharging this patient (2) Pancreatitis Priority: Primary Status: Acute Qualifiers: Chronicity: acute Pancreatitis type: unspecified pancreatitis type Acute pancreatitis complication: unspecified Qualified Code(s): K85.90 - Acute pancreatitis without necrosis or infection, unspecified (3) ESRD (end stage renal disease) on dialysis Priority: Primary Status: Chronic (4) Hypertension Priority: Primary Status: Acute Qualifiers: Hypertension type: essential hypertension Qualified Code(s): I10 - Essential (primary) hypertension (5) Diabetes mellitus Priority: Primary Status: Chronic Qualifiers: Diabetes mellitus type: type 2 Diabetes mellitus care home insulin use: with care home use Diabetes mellitus complication status: with kidney complications Diabetes mellitus complication detail: with chronic kidney disease Chronic kidney disease stage: stage 4 (severe) Qualified Code(s): E11.22 - Type 2 diabetes mellitus with diabetic chronic kidney disease; N18.4 - Chronic kidney disease, stage 4 (severe); Z79.4 - roasterman (current) use of insulin (6) COPD (chronic obstructive pulmonary disease) Priority: Primary Status: Acute Qualifiers: Qualified Code(s): J44.9 - Chronic obstructive pulmonary disease, unspecified (7) DVT prophylaxis Priority: Primary Status: Acute Hospital course: Ms. Garcia is a 68 year old female - Time Spent with Patient Total time spent providing and/or coordinating discharge services: - Discharge Medications Prescriptions: Continued Famotidine [Heartburn Prevention] 20 mg PO BID Clopidogrel [Plavix] 75 mg PO DAILY risperiDONE [Risperidone] 1 mg PO HS ALPRAZolam [Xanax 1 MG Tablet] 1 mg PO BID DULoxetine [Cymbalta] 30 mg PO BID Ranolazine [Ranexa] 500 mg PO BID Rosuvastatin [Crestor] 40 mg PO QPM HYDROcodone/Acet 5/325 mg [[place] 5-325 mg] 1 tab PO BID PRN PRN Reason: Pain Tiotropium [Spiriva] 1 puff IH DAILY Hydralazine HCl 100 mg PO TID #90 tablet Carvedilol [Coreg] 25 mg PO BIDWM 30 Days #30 tablet cloNIDine HCl [CloNIDine HCl] 0.1 mg PO TID 30 Days #90 tablet metOLazone [Zaroxolyn] 5 mg PO DAILY@0730 30 Days #30 tablet NIFEdipine [Nifedipine ER] 90 mg PO DAILY Trazodone HCl 100 mg PO HS Aspirin [Lo-Dose Aspirin EC] 81 mg PO DAILY Insulin Regular U-500 [HumuLIN R U-500] 2 - 6 unit SQ TID Sevelamer [Renvela] 800 mg PO TID Fenofibrate Nanocrystallized [Fenofibrate] 160 mg PO DAILY Furosemide [Lasix] 40 mg PO DAILY Miconazole 2% cream [Coby Antifungal] 1 appl TP BID tube Ipratropium/Albuterol Neb [Duoneb] 3 ml IH Q4-6H PRN PRN Reason: Shortness Of Breath Vancomycin [Vancocin] 1 each IVPB RPHPROT PRN #60 vial PRN Reason: Pharmacy to Dose Potassium Chloride [K-Tab ER] 20 meq PO BID Metoprolol [Lopressor] 50 mg PO BID Cholecalciferol (Vitamin D3) [Vitamin D3] 50,000 unit PO QWEEK Home Medications: ALPRAZolam [Xanax 1 MG Tablet] 1 mg PO BID 04/15/17 [History] Clopidogrel [Plavix] 75 mg PO DAILY 04/15/17 [History] DULoxetine [Cymbalta] 30 mg PO BID 04/15/17 [History] Famotidine [Heartburn Prevention] 20 mg PO BID 04/15/17 [History] risperiDONE [Risperidone] 1 mg PO HS 04/15/17 [History] Ranolazine [Ranexa] 500 mg PO BID 07/23/17 [History] Rosuvastatin [Crestor] 40 mg PO QPM 07/23/17 [History] HYDROcodone/Acet 5/325 mg [[place] 5-325 mg] 1 tab PO BID PRN 09/28/17 [History] Tiotropium [Spiriva] 1 puff IH DAILY 09/28/17 [History] Hydralazine HCl 100 mg PO TID #90 tablet 10/04/17 [Rx] Carvedilol [Coreg] 25 mg PO BIDWM 30 Days #30 tablet 11/21/17 [Rx] cloNIDine HCl [CloNIDine HCl] 0.1 mg PO TID 30 Days #90 tablet 11/21/17 [Rx] metOLazone [Zaroxolyn] 5 mg PO DAILY@0730 30 Days #30 tablet 11/21/17 [Rx] Aspirin [Lo-Dose Aspirin EC] 81 mg PO DAILY 12/15/17 [History] Insulin Regular U-500 [HumuLIN R U-500] 2 - 6 unit SQ TID 12/15/17 [History] NIFEdipine [Nifedipine ER] 90 mg PO DAILY 12/15/17 [History] Sevelamer [Renvela] 800 mg PO TID 12/15/17 [History] Trazodone HCl 100 mg PO HS 12/15/17 [History] Fenofibrate Nanocrystallized [Fenofibrate] 160 mg PO DAILY 03/02/18 [History] Furosemide [Lasix] 40 mg PO DAILY 03/02/18 [History] Miconazole 2% cream [Coby Antifungal] 1 appl TP BID tube 03/16/18 [Rx] Ipratropium/Albuterol Neb [Duoneb] 3 ml IH Q4-6H PRN 05/04/18 [History] Vancomycin [Vancocin] 1 each IVPB RPHPROT PRN #60 vial 05/14/18 [Rx] Cholecalciferol (Vitamin D3) [Vitamin D3] 50,000 unit PO QWEEK 10/16/18 [History] Metoprolol [Lopressor] 50 mg PO BID 10/16/18 [History] Potassium Chloride [K-Tab ER] 20 meq PO BID 10/16/18 [History] Allergies/Adverse Reactions: Allergy/AdvReac Type Severity Reaction Status Date / Time morphine Allergy Hallucinati Verified 03/02/18 06:36 ng Sulfa (Sulfonamide Allergy Rash Verified 03/02/18 06:36 Antibiotics) Date of admission: 10/16/18 12:15 Primary care physician: Jay Valenzuela Consults: 10/16/18 11:43 Consult to Nephrology [CONS] Routine Consulting Provider: Kidney Amina/HINA/MONY/JENS Reason for Consult: ESRD on HD TThS, here with abd pain and n/v w lipase 300 suggestive of acute pancreatitis Call Completed: Yes 10/16/18 14:15 Consult to Dialysis [CONS] ONCE 10/16/18 14:20 Consult to Surgery [CONS] Routine Consulting Provider: Gus Jerome Reason for Consult: gallstone pancreatitis, just FYI because she'll likely need lap tony prior to discharge (but not urgently) Call Completed: Yes - Constitutional Vitals: Temp Pulse Resp BP Pulse Ox 97.6 F 67 16 113/70 98 10/18/18 06:30 10/18/18 06:30 10/18/18 06:30 10/18/18 06:30 10/18/18 06:30 Exam: General: NAD, good eye contact, chronically ill appearing Head: Atraumatic, normocephalic. Face symmetric Eyes: EOMI, sclerae anicteric ENT: Mucous membranes moist. Normal oral mucosa. Trachea midline. Thoracic: No visible chest wall deformities. Normal breath sounds b/l, no wheezing or crackles Cardio: Normal S1 and S2, regular rate and rhythm, no murmurs Abdomen: Soft, nondistended. Does have tenderness to palpation in epigastrium Extremities: Warm, well perfused. DP pulses 2+ b/l. No clubbing, cyanosis. No edema. LUE AVF Skin: Intact. No rashes, bruises, or ulcers Neuro: Awake, fully oriented. Good memory, concentration, attention. Speech fluent. CN II-XII grossly intact. Strength 5/5 in b/l UE and LE - Patient Status Disposition: Home, Self-Care Condition: Fair - Discharge Instructions Instructions: Pancreatitis (DC), Laparoscopic Cholecystectomy (DC) Follow Up With: Jay Valenzuela DO [Primary Care Provider] - (Please call office on Thursday10/19/18)
--- NOTE | 2018-10-18 09:49 | Nephrology Progress Note ---
Date of Encounter: 10/18/18 Time of Encounter: 09:48 - Assessment and Plan (1) ESRD (end stage renal disease) Current Visit: No Status: Acute HD TRS via left upper arm fistula Renal diet Renal dose medications. Plan for dialysis Thursday inpatient or outpatient. Will assess daily for the need for extra dialysis. No need for dialysis today. Spoke with hospitalist. Anticipate discharge today. (2) Abdominal pain Current Visit: Yes Status: Acute Qualifiers: Abdominal location: epigastric Qualified Code(s): R10.13 - Epigastric pain (3) Pancreatitis Current Visit: Yes Status: Acute Qualifiers: Chronicity: acute Pancreatitis type: unspecified pancreatitis type Acute pancreatitis complication: unspecified Qualified Code(s): K85.90 - Acute pancreatitis without necrosis or infection, unspecified (4) HTN (hypertension) Current Visit: No Status: Acute Qualifiers: Hypertension type: essential hypertension Qualified Code(s): I10 - Essential (primary) hypertension (5) Hyponatremia Current Visit: No Status: Acute (6) Anxiety Current Visit: No Status: Chronic (7) Diabetes mellitus Current Visit: No Status: Chronic Qualifiers: Diabetes mellitus type: type 2 Diabetes mellitus intermediate manager insulin use: with intermediate manager use Chronic kidney disease stage: on chronic dialysis Qualified Code(s): E11.22 - Type 2 diabetes mellitus with diabetic chronic kidney disease; N18.6 - End stage renal disease; Z79.4 - longterm (current) use of insulin; Z99.2 - Dependence on renal dialysis (8) Obesity Current Visit: No Status: Chronic Qualifiers: Obesity type: unspecified obesity type Obesity classification: adult class 3 (BMI >= 40) Serious obesity comorbidity presence: with serious comorbidity Body mass index: BMI 45.0-49.9 Qualified Code(s): E66.01 - Morbid (severe) obesity due to excess calories; Z68.42 - Body mass index (BMI) 45.0-49.9, adult Subjective Principal diagnosis: esrd trs Interval history: Ms. Brunson was seen. She has no new complaints. She anticipates discharge today. Her nausea has subsided. Her appetite is normal. Objective - Vital Signs Vital signs: Vital Signs Temp Pulse Resp BP Pulse Ox 10/18/18 06:30 97.6 F 67 16 113/70 98 10/18/18 04:02 98.2 F 66 19 129/55 98 10/17/18 23:51 98.4 F 66 18 105/55 98 10/17/18 18:26 98 F 63 18 109/50 99 10/17/18 16:37 58 16 123/64 100 10/17/18 16:21 60 18 128/61 99 10/17/18 16:06 97.5 F L 59 16 135/61 99 10/17/18 15:35 97.4 F L 58 16 119/53 99 10/17/18 15:25 54 16 129/96 97 10/17/18 15:15 57 16 127/59 98 10/17/18 15:05 97.8 F 58 16 125/63 100 10/17/18 11:30 98.1 F 67 18 98/54 92 Intake and Output 10/17/18 10/18/18 10/18/18 23:59 07:59 15:59 Intake Total 951 / 971 100 / 340 240 / 340 Output Total 300 / 300 Balance 951 / 956 -200 / 40 240 / 40 Intake: IV Fluids 851 / 871 0.9 % Sodium Chloride 1,000 ML 800 / 800 @ 100 mls/hr IVC .Q10H [facility] Rx#: [id number] Phenergan 25 MG In 0.9 % Sodium 51 / 51 Chloride 50 ML @ 204 mls/hr IVPB ONCE ONE Rx#:[id number] Oral 100 / 100 100 / 340 240 / 340 Output: Urine 300 / 300 Other: Meal Breakfast Percent of Meal Consumed 50% Weight 106.8 kg Blood Glucose* 253 154 - General Appearance General appearance: Present: well-developed, well-nourished EENT: Present: ATNC Neck: Present: supple Cardiology: Present: regular rate Neurologic: Present: alert and oriented x3 Psychiatric: Present: mood/affect appropriate - Lab 10/18/18 06:07 10/18/18 06:07 Most recent lab results 10/18/18 06:07 Calcium 9.3 Phosphorus 6.7 H Magnesium 2.1 Consult Discharge Plan - Plan Instructions: Pancreatitis (DC), Laparoscopic Cholecystectomy (DC) Referrals: Jay Valenzuela DO [Primary Care Provider] - (Please call office on Thursday10/19/18)
[2018-10-18] MEDS ORDERED: Tiotropium 18 MCG inhalation IH SCH (10:00)
== END 2018-10-18 10:12 | disposition home or self-care (01) | DRG 417 ==
LOC: EMEROOARM 07:19 → 3ANU 12:15 → 2ANU 13:37
PROVIDERS: ADMIT Internal Medicine; ATTEND Student in an Organized Health Care Education/Training Program

== ENCOUNTER 2021-02-10 12:13 | Inpatient (IN) ==
[2021-02-10 13:18] LABS: Basophils # 0.1 K/mcL (0.0-0.2); Basophils % 0.5 %; Eosinophils # 0.2 K/mcL (0.0-0.6); Eosinophils % 1.4 %; Hematocrit 34.5 % (35.3-44.9); Immature Granulocytes % 0.8 % (0-4); Lymphocytes # 1.4 K/mcL (0.6-4.6); Lymphocytes % 9.6 %; Mean Corpuscular HGB Conc 34.8 g/dL (31.6-35.5); Mean Corpuscular Hemoglobin 31.7 pg (28.0-33.3); Mean Corpuscular Volume 91.3 fL (83.0-100.0); Mean Platelet Volume 10.1 fL (9.4-12.4); Monocytes # 0.8 K/mcL (0.0-1.3); Monocytes % 5.8 %; Neutrophils # 11.8 K/mcL (1.6-8.9); Platelet Count 134 K/mcL (140-400); Red Blood Count 3.78 M/mcL (3.82-4.97); Red Cell Distribution Width 12.8 % (11.5-14.5); Segmented Neutrophils % 81.9 %; White Blood Count 14.4 K/mcL (4.3-11.1)
[2021-02-10 13:38] LABS: Albumin 3.2 g/dL (3.5-5.7); Albumin/Globulin Ratio 1.1 (1.1-2.2); Bilirubin,Total 0.4 mg/dL (0.3-1.0); Calcium 9.5 mg/dL (8.6-10.3); Globulin 2.8 g/dL (2.4-3.5); Potassium 3.6 mEq/L (3.5-5.1); Troponin I 0.03 ng/mL (< 0.04)
[2021-02-10 14:12] LABS: Bacteria,Urine Few per hpf (None-Few); Bilirubin,Urine Negative (Negative); Blood,Urine Small (Negative); Clarity,Urine Clear (Clear); Color,Urine Yellow (Yellow); Glucose,Urine (UA) 30 mg/dL (Normal); Ketones,Urine Negative (Negative); Leukocyte Esterase,Urine Trace (Negative); Mucus,Urine Few per lpf (None-Few); Nitrite,Urine Negative (Negative); PH,Urine 5.5 pH Units (5.0-8.0); Protein,Urine 200 mg/dL (Neg-Trace); RBC,Urine 0-3 per hpf (0-3); Specific Gravity,Urine 1.014 (1.010-1.025); Squamous Epithelial Cell,Urine Few per hpf (None-Few); Urobilinogen,Urine Normal (Normal)
[2021-02-10] MEDS ORDERED: Naloxone 0.4 MG/ML INJ IVP PRN (14:44)
[2021-02-10] MEDS ORDERED: Ondansetron 4 MG/2 ML VIAL IVP PRN (14:44)
[2021-02-10] MEDS: cefTRIAXone 1,000 MG in Water for inj. (sterile) 10 ML IVP SCH (16:51)
[2021-02-10] MEDS: *HR* Heparin 5,000 UNIT/ML VIAL SQ SCH (16:51)
[2021-02-10 19:18] LABS: Hepatitis B Surface Antibody 6.04 mIU/mL
[2021-02-10 21:27] LABS: Hepatitis B Surface Antigen Nonreactive (Nonreactive)
[2021-02-11 00:44] LABS: Basophils # 0.1 K/mcL (0.0-0.2); Basophils % 0.6 %; Eosinophils # 0.2 K/mcL (0.0-0.6); Eosinophils % 2.1 %; Hematocrit 32.9 % (35.3-44.9); Hemoglobin 11.3 g/dL (11.5-15.4); Immature Granulocytes % 0.6 % (0-4); Lymphocytes # 1.6 K/mcL (0.6-4.6); Lymphocytes % 14.7 %; Mean Corpuscular HGB Conc 34.3 g/dL (31.6-35.5); Mean Corpuscular Hemoglobin 31.1 pg (28.0-33.3); Mean Corpuscular Volume 90.6 fL (83.0-100.0); Mean Platelet Volume 9.7 fL (9.4-12.4); Monocytes # 0.6 K/mcL (0.0-1.3); Monocytes % 5.8 %; Neutrophils # 8.2 K/mcL (1.6-8.9); Platelet Count 125 K/mcL (140-400); Red Blood Count 3.63 M/mcL (3.82-4.97); Red Cell Distribution Width 12.7 % (11.5-14.5); Segmented Neutrophils % 76.2 %; White Blood Count 10.8 K/mcL (4.3-11.1)
[2021-02-11 00:47] LABS: VBG HCO3 22 mEq/L (21-27); VBG PCO2 33 mmHg (41-51); VBG PH 7.42 pH Units (7.32-7.42); VBG PO2 76 mmHg (25-50)
[2021-02-11 01:03] LABS: Calcium 9.4 mg/dL (8.6-10.3)
[2021-02-11] MEDS: *HR* Heparin 5,000 UNIT/ML VIAL SQ SCH ×2 (05:24→17:05)
[2021-02-11] MEDS ORDERED: 0.9 % Sodium Chloride 250 ML IVC PRN (07:17)
[2021-02-11] MEDS: cefTRIAXone 1,000 MG in Water for inj. (sterile) 10 ML IVP SCH (08:40)
[2021-02-11 12:13] LABS: mecA Methicillin-Resist Gene DETECTED (Not Detect)
[2021-02-11 12:14] LABS: Acinetobacter baumannii by PCR Not Detected (Not Detect); Candida albicans by PCR Not Detected (Not Detect); Candida glabrata by PCR Not Detected (Not Detect); Candida krusei by PCR Not Detected (Not Detect); Candida parapsilosis by PCR Not Detected (Not Detect); Candida tropicalis by PCR Not Detected (Not Detect); Enterobacter cloacae Cmplx PCR Not Detected (Not Detect); Enterobacteriaceae by PCR Not Detected (Not Detect); Enterococcus by PCR Not Detected (Not Detect); Escherichia coli by PCR Not Detected (Not Detect); Klebsiella oxytoca by PCR Not Detected (Not Detect); Klebsiella pneumoniae by PCR Not Detected (Not Detect); Proteus by PCR Not Detected (Not Detect); Pseudomonas aeruginosa by PCR Not Detected (Not Detect); Serratia marcescens by PCR Not Detected (Not Detect); Staphylococcus aureus by PCR Not Detected (Not Detect); Staphylococcus by PCR DETECTED (Not Detect); Streptococcus agalactiae(B)PCR Not Detected (Not Detect); Streptococcus by PCR Not Detected (Not Detect); Streptococcus pneumoniae PCR Not Detected (Not Detect); Streptococcus pyogenes (A) PCR Not Detected (Not Detect)
[2021-02-11] MEDS: carvediloL 6.25 MG TABLET PO SCH (17:05)
[2021-02-11] MEDS: Budesonide/Formoterol 80/4.5 1 PUFF INH IH SCH (20:04)
[2021-02-11] MEDS: traZODone 50 MG TABLET PO SCH (20:39)
[2021-02-11] MEDS: risperiDONE 1 MG TABLET PO SCH (20:39)
[2021-02-11] MEDS: ALPRAZolam 1 MG TABLET PO SCH (20:40)
[2021-02-12 01:59] LABS: Hematocrit 31.2 % (35.3-44.9); Hemoglobin 10.5 g/dL (11.5-15.4); Mean Corpuscular HGB Conc 33.7 g/dL (31.6-35.5); Mean Corpuscular Hemoglobin 30.6 pg (28.0-33.3); Mean Platelet Volume 9.8 fL (9.4-12.4); Platelet Count 121 K/mcL (140-400); Red Blood Count 3.43 M/mcL (3.82-4.97); Red Cell Distribution Width 12.8 % (11.5-14.5); White Blood Count 8.2 K/mcL (4.3-11.1)
[2021-02-12 02:10] LABS: Calcium 9.2 mg/dL (8.6-10.3); Potassium 3.6 mEq/L (3.5-5.1)
[2021-02-12] MEDS: *HR* HYDROcodone/Acet 5/325 mg TABLET PO PRN (04:52)
[2021-02-12] MEDS: *HR* Heparin 5,000 UNIT/ML VIAL SQ SCH ×2 (04:52→16:54)
[2021-02-12] MEDS ORDERED: 0.9 % Sodium Chloride 250 ML IVC PRN (07:09)
[2021-02-12] MEDS ORDERED: 0.9 % Sodium Chloride 1,000 ML PRIME SCH (07:15)
[2021-02-12] MEDS: Budesonide/Formoterol 80/4.5 1 PUFF INH IH SCH ×2 (07:41→20:01)
[2021-02-12] MEDS: cefTRIAXone 1,000 MG in Water for inj. (sterile) 10 ML IVP SCH (08:27)
[2021-02-12] MEDS: Furosemide 20 MG TABLET PO SCH (08:28)
[2021-02-12] MEDS: carvediloL 6.25 MG TABLET PO SCH ×2 (08:28→16:54)
[2021-02-12] MEDS: Aspirin Enteric Coated 81 MG Tablet PO SCH (08:28)
[2021-02-12] MEDS: amLODIPine 5 MG TABLET PO SCH (08:28)
[2021-02-12] MEDS: ALPRAZolam 1 MG TABLET PO SCH ×2 (08:28→20:22)
[2021-02-12] MEDS: Ranolazine 500 MG TAB.ER.12H PO SCH (20:22)
[2021-02-12] MEDS: traZODone 50 MG TABLET PO SCH (20:23)
[2021-02-12] MEDS: risperiDONE 1 MG TABLET PO SCH (20:23)
[2021-02-13 05:51] LABS: Basophils # 0.1 K/mcL (0.0-0.2); Eosinophils # 0.2 K/mcL (0.0-0.6); Eosinophils % 2.7 %; Hemoglobin 10.7 g/dL (11.5-15.4); Immature Granulocytes % 0.6 % (0-4); Lymphocytes % 23.6 %; Mean Corpuscular HGB Conc 34.5 g/dL (31.6-35.5); Mean Corpuscular Hemoglobin 31.8 pg (28.0-33.3); Mean Platelet Volume 9.9 fL (9.4-12.4); Monocytes # 0.8 K/mcL (0.0-1.3); Monocytes % 9.6 %; Neutrophils # 5.2 K/mcL (1.6-8.9); Platelet Count 135 K/mcL (140-400); Red Blood Count 3.37 M/mcL (3.82-4.97); Red Cell Distribution Width 12.7 % (11.5-14.5); Segmented Neutrophils % 62.5 %; White Blood Count 8.3 K/mcL (4.3-11.1)
[2021-02-13] MEDS: *HR* Heparin 5,000 UNIT/ML VIAL SQ SCH ×2 (06:17→15:44)
[2021-02-13 06:30] LABS: Calcium 9.3 mg/dL (8.6-10.3); Potassium 3.8 mEq/L (3.5-5.1)
[2021-02-13] MEDS: Furosemide 20 MG TABLET PO SCH (08:33)
[2021-02-13] MEDS: *HR* HYDROcodone/Acet 5/325 mg TABLET PO PRN (08:33)
[2021-02-13] MEDS: ALPRAZolam 1 MG TABLET PO SCH (08:33)
[2021-02-13] MEDS: carvediloL 6.25 MG TABLET PO SCH ×2 (08:33→16:28)
[2021-02-13] MEDS: amLODIPine 5 MG TABLET PO SCH (08:33)
[2021-02-13] MEDS: Ranolazine 500 MG TAB.ER.12H PO SCH (08:33)
[2021-02-13] MEDS: Aspirin Enteric Coated 81 MG Tablet PO SCH (08:33)
[2021-02-13] MEDS: Budesonide/Formoterol 80/4.5 1 PUFF INH IH SCH (11:03)
[2021-02-13 12:24] VITALS: BP 169/76; PULSE 61; TEMP 97.7; O2SAT 98
[2021-02-13] MEDS ORDERED: Sennosides/Docusate Sodium TABLET PO PRN (12:51)
== END 2021-02-13 17:25 | disposition home health service (06) | DRG 689 ==
LOC: 2ANU 12:13 → EMEROOARM 12:13 → 2ANU 16:18 → SUATTDRO 02-12 15:07
PROVIDERS: ADMIT Internal Medicine; ATTEND Student in an Organized Health Care Education/Training Program

== ENCOUNTER 2021-02-16 11:19 | Inpatient (IN) ==
[2021-02-16] MEDS ORDERED: *HR* FentaNYL (PF) 100 MCG/2 ML VIAL IVP ONE (11:26)
[2021-02-16 13:03] LABS: Basophils # 0.1 K/mcL (0.0-0.2); Basophils % 0.5 %; Eosinophils # 0.2 K/mcL (0.0-0.6); Eosinophils % 1.5 %; Hematocrit 34.6 % (35.3-44.9); Hemoglobin 11.6 g/dL (11.5-15.4); Immature Granulocytes % 0.9 % (0-4); Lymphocytes # 1.4 K/mcL (0.6-4.6); Lymphocytes % 10.5 %; Mean Corpuscular HGB Conc 33.5 g/dL (31.6-35.5); Mean Corpuscular Volume 92.5 fL (83.0-100.0); Mean Platelet Volume 9.8 fL (9.4-12.4); Monocytes # 0.8 K/mcL (0.0-1.3); Monocytes % 6.1 %; Neutrophils # 10.4 K/mcL (1.6-8.9); Platelet Count 135 K/mcL (140-400); Red Blood Count 3.74 M/mcL (3.82-4.97); Red Cell Distribution Width 12.6 % (11.5-14.5); Segmented Neutrophils % 80.5 %
[2021-02-16 13:04] LABS: White Blood Count 12.9 K/mcL (4.3-11.1)
[2021-02-16 13:25] LABS: Albumin 3.5 g/dL (3.5-5.7); Albumin/Globulin Ratio 1.1 (1.1-2.2); Bilirubin,Direct 0.1 mg/dL (0.0-0.2); Bilirubin,Indirect 0.4 mg/dL (0.0-1.0); Bilirubin,Total 0.5 mg/dL (0.3-1.0); Calcium 9.6 mg/dL (8.6-10.3); Globulin 3.3 g/dL (2.4-3.5); Magnesium 1.7 mg/dL (1.6-2.6); Phosphorous 3.9 mg/dL (2.7-4.5); Potassium 3.9 mEq/L (3.5-5.1); Total Protein 6.8 g/dL (6.4-8.9)
[2021-02-16 14:32] LABS: Influenza A PCR Negative (Negative); Influenza B PCR Negative (Negative); Resp. Syncytial Virus PCR Negative (Negative)
[2021-02-16 14:50] LABS: SARS-CoV-2 by PCR (In House) Negative (Negative)
[2021-02-16 16:07] LABS: Bilirubin,Urine Negative (Negative); Blood,Urine Moderate (Negative); Clarity,Urine Turbid (Clear); Color,Urine Yellow (Yellow); Glucose,Urine (UA) Normal (Normal); Hyaline Casts,Urine Few per lpf (None Seen); Ketones,Urine Negative (Negative); Leukocyte Esterase,Urine Small (Negative); Nitrite,Urine Negative (Negative); PH,Urine 5.5 pH Units (5.0-8.0); Protein,Urine 100 mg/dL (Neg-Trace); Specific Gravity,Urine 1.013 (1.010-1.025); Squamous Epithelial Cell,Urine Few per hpf (None-Few); Transitional Epi Cells,Urine Few per hpf (None-Few); Urobilinogen,Urine Normal (Normal)
[2021-02-16] MEDS ORDERED: cefTRIAXone 1,000 MG in 0.9 % Sodium Chloride Mini Bag 100 ML IVPB ONE (16:56)
[2021-02-16] MEDS ORDERED: cefTRIAXone 1,000 MG in Water for inj. (sterile) 10 ML IVP ONE (17:10)
[2021-02-16] MEDS ORDERED: *HR* Labetalol 20 MG/4 ML SYRINGE IVP ONE (21:02)
[2021-02-16] MEDS ORDERED: D5% in Water 1,000 ML IVC PRN (21:14)
[2021-02-16] MEDS ORDERED: *HR* Dextrose 50 % in Water (Syg) 50 ML SYRINGE IVP PRN (21:14)
[2021-02-16] MEDS ORDERED: Dextrose Gel 15 GM/37.5 ML TUBE PO PRN ×2 (21:14)
[2021-02-16] MEDS ORDERED: Furosemide 20 MG TABLET PO PRN (21:24)
[2021-02-16] MEDS ORDERED: Acetaminophen 325 MG TABLET PO PRN (21:27)
[2021-02-16] MEDS ORDERED: Naloxone 0.4 MG/ML INJ IVP PRN (21:27)
[2021-02-16] MEDS: Insulin LISPRO 300 UNITS/3 ML VIAL SUBQ SCH (22:07)
[2021-02-16] MEDS: traZODone 50 MG TABLET PO SCH (22:11)
[2021-02-16] MEDS ORDERED: Ipratropium/Albuterol Neb 3 ML IH PRN (22:27)
[2021-02-16] MEDS ORDERED: carvediloL 25 MG TABLET PO ONE (23:32)
[2021-02-17] MEDS: Budesonide/Formoterol 80/4.5 1 PUFF INH IH SCH ×3 (00:29→20:25)
[2021-02-17] MEDS ORDERED: *HR* Labetalol 20 MG/4 ML SYRINGE IVP ONE (03:54)
[2021-02-17 06:29] LABS: Hematocrit 30.5 % (35.3-44.9); Hemoglobin 10.3 g/dL (11.5-15.4); Mean Corpuscular HGB Conc 33.8 g/dL (31.6-35.5); Mean Corpuscular Hemoglobin 30.7 pg (28.0-33.3); Mean Platelet Volume 9.8 fL (9.4-12.4); Platelet Count 124 K/mcL (140-400); Red Blood Count 3.35 M/mcL (3.82-4.97); Red Cell Distribution Width 12.6 % (11.5-14.5); White Blood Count 10.5 K/mcL (4.3-11.1)
[2021-02-17 06:38] LABS: INR 1.1; Prothrombin Time 12.1 Seconds (9.4-12.1)
[2021-02-17 06:40] LABS: Activated Partial Thrombo Time 31.8 Seconds (26.0-36.0)
[2021-02-17 06:43] LABS: Estimated Average Glucose 114 mg/dl; Hemoglobin A1C 5.6 %
[2021-02-17 06:54] LABS: Troponin I 0.04 ng/mL (< 0.04)
[2021-02-17 06:56] LABS: Iron 69 mcg/dL (50-170)
[2021-02-17 06:58] LABS: Calcium 9.2 mg/dL (8.6-10.3); Chol/HDL Ratio 6.4 (0-4.9); Phosphorous 4.5 mg/dL (2.7-4.5); Potassium 3.7 mEq/L (3.5-5.1)
[2021-02-17 07:13] LABS: Folate 19.7 ng/mL (3.0-16.0)
[2021-02-17] MEDS: Insulin LISPRO 300 UNITS/3 ML VIAL SUBQ SCH ×4 (07:24→22:14)
[2021-02-17] MEDS: Aspirin Enteric Coated 81 MG Tablet PO SCH (08:19)
[2021-02-17] MEDS: carvediloL 25 MG TABLET PO SCH ×2 (08:19→16:10)
[2021-02-17] MEDS: Famotidine 20 MG TABLET PO SCH ×2 (08:19→20:02)
[2021-02-17] MEDS: risperiDONE 1 MG TABLET PO SCH (08:19)
[2021-02-17 09:10] LABS: Ferritin 1368 ng/mL (10-120)
[2021-02-17] MEDS: cefTRIAXone 1,000 MG in 0.9 % Sodium Chloride Mini Bag 100 ML IVPB SCH (09:56)
[2021-02-17] MEDS: Mirtazapine 15 MG TABLET PO SCH (20:02)
[2021-02-17] MEDS: traZODone 50 MG TABLET PO SCH (20:02)
[2021-02-17] MEDS ORDERED: *HR* HYDROcodone/Acet 7.5/325 mg TABLET PO ONE (21:09)
[2021-02-18 05:00] LABS: Hematocrit 29.4 % (35.3-44.9); Hemoglobin 10.2 g/dL (11.5-15.4); Mean Corpuscular HGB Conc 34.7 g/dL (31.6-35.5); Mean Corpuscular Hemoglobin 31.6 pg (28.0-33.3); Mean Platelet Volume 10.3 fL (9.4-12.4); Platelet Count 134 K/mcL (140-400); Red Blood Count 3.23 M/mcL (3.82-4.97); Red Cell Distribution Width 12.6 % (11.5-14.5); White Blood Count 12.6 K/mcL (4.3-11.1)
[2021-02-18 05:20] LABS: Calcium 9.2 mg/dL (8.6-10.3); Potassium 3.6 mEq/L (3.5-5.1)
[2021-02-18] MEDS: Budesonide/Formoterol 80/4.5 1 PUFF INH IH SCH ×2 (07:54→19:47)
[2021-02-18] MEDS ORDERED: 0.9 % Sodium Chloride 250 ML IVC PRN (07:54)
[2021-02-18] MEDS ORDERED: 0.9 % Sodium Chloride 1,000 ML PRIME SCH (08:00)
[2021-02-18] MEDS ORDERED: amLODIPine 5 MG TABLET PO SCH (09:00)
[2021-02-18] MEDS: cefTRIAXone 1,000 MG in 0.9 % Sodium Chloride Mini Bag 100 ML IVPB SCH (09:22)
[2021-02-18] MEDS: Aspirin Enteric Coated 81 MG Tablet PO SCH (09:22)
[2021-02-18] MEDS: Insulin LISPRO 300 UNITS/3 ML VIAL SUBQ SCH ×4 (09:22→21:57)
[2021-02-18] MEDS: risperiDONE 1 MG TABLET PO SCH (09:23)
[2021-02-18] MEDS: carvediloL 25 MG TABLET PO SCH ×2 (09:23→17:30)
[2021-02-18] MEDS: Ondansetron 4 MG/2 ML VIAL IVP PRN ×2 (11:58→20:00)
[2021-02-18] MEDS: Ranolazine 500 MG TAB.ER.12H PO SCH (19:58)
[2021-02-18] MEDS: traZODone 50 MG TABLET PO SCH (19:58)
[2021-02-18] MEDS: Mirtazapine 15 MG TABLET PO SCH (19:59)
[2021-02-18] MEDS: Famotidine 20 MG TABLET PO SCH (19:59)
[2021-02-19] MEDS ORDERED: 0.9 % Sodium Chloride 250 ML IVC PRN (07:39)
[2021-02-19] MEDS ORDERED: 0.9 % Sodium Chloride 1,000 ML PRIME SCH (07:45)
[2021-02-19] MEDS: Insulin LISPRO 300 UNITS/3 ML VIAL SUBQ SCH ×4 (07:50→21:49)
[2021-02-19 08:03] LABS: Calcium 9.3 mg/dL (8.6-10.3); Potassium 3.5 mEq/L (3.5-5.1)
[2021-02-19 08:08] LABS: Hematocrit 31.4 % (35.3-44.9); Hemoglobin 10.9 g/dL (11.5-15.4); Mean Corpuscular HGB Conc 34.7 g/dL (31.6-35.5); Mean Corpuscular Volume 89.2 fL (83.0-100.0); Mean Platelet Volume 10.4 fL (9.4-12.4); Platelet Count 126 K/mcL (140-400); Red Blood Count 3.52 M/mcL (3.82-4.97); Red Cell Distribution Width 12.8 % (11.5-14.5); White Blood Count 12.1 K/mcL (4.3-11.1)
[2021-02-19] MEDS: cefTRIAXone 1,000 MG in 0.9 % Sodium Chloride Mini Bag 100 ML IVPB SCH (08:18)
[2021-02-19] MEDS: amLODIPine 5 MG TABLET PO SCH (08:18)
[2021-02-19] MEDS: hydrALAZINE 25 MG TABLET PO SCH ×3 (08:18→23:58)
[2021-02-19] MEDS: carvediloL 25 MG TABLET PO SCH ×2 (08:18→16:59)
[2021-02-19] MEDS: Ranolazine 500 MG TAB.ER.12H PO SCH ×2 (08:18→19:26)
[2021-02-19] MEDS: Aspirin Enteric Coated 81 MG Tablet PO SCH (08:18)
[2021-02-19] MEDS: Furosemide 20 MG TABLET PO SCH (08:18)
[2021-02-19] MEDS: risperiDONE 1 MG TABLET PO SCH (08:18)
[2021-02-19] MEDS: Nystatin POWDER 30 GM BOTTLE TP SCH ×2 (09:47→19:27)
[2021-02-19] MEDS: Budesonide/Formoterol 80/4.5 1 PUFF INH IH SCH ×2 (10:10→20:56)
[2021-02-19] MEDS: traZODone 50 MG TABLET PO SCH (19:25)
[2021-02-19] MEDS: Famotidine 20 MG TABLET PO SCH (19:26)
[2021-02-19] MEDS: Mirtazapine 15 MG TABLET PO SCH (19:27)
[2021-02-20 01:24] LABS: Hematocrit 33.6 % (35.3-44.9); Hemoglobin 11.2 g/dL (11.5-15.4); Mean Corpuscular HGB Conc 33.3 g/dL (31.6-35.5); Mean Corpuscular Hemoglobin 30.8 pg (28.0-33.3); Mean Corpuscular Volume 92.3 fL (83.0-100.0); Platelet Count 129 K/mcL (140-400); Red Blood Count 3.64 M/mcL (3.82-4.97); Red Cell Distribution Width 12.9 % (11.5-14.5); White Blood Count 15.4 K/mcL (4.3-11.1)
[2021-02-20 01:43] LABS: Calcium 9.4 mg/dL (8.6-10.3); Potassium 3.5 mEq/L (3.5-5.1)
[2021-02-20] MEDS: Insulin LISPRO 300 UNITS/3 ML VIAL SUBQ SCH ×4 (08:39→21:20)
[2021-02-20] MEDS: Aspirin Enteric Coated 81 MG Tablet PO SCH (08:40)
[2021-02-20] MEDS: Ranolazine 500 MG TAB.ER.12H PO SCH ×2 (08:40→20:26)
[2021-02-20] MEDS: amLODIPine 5 MG TABLET PO SCH (08:40)
[2021-02-20] MEDS: risperiDONE 1 MG TABLET PO SCH (08:40)
[2021-02-20] MEDS: Furosemide 20 MG TABLET PO SCH (08:40)
[2021-02-20] MEDS: hydrALAZINE 25 MG TABLET PO SCH ×2 (08:40→17:34)
[2021-02-20] MEDS: carvediloL 25 MG TABLET PO SCH ×2 (08:40→17:34)
[2021-02-20] MEDS: Nystatin POWDER 30 GM BOTTLE TP SCH ×2 (08:40→20:29)
[2021-02-20 10:00] LABS: % Iron Saturation 38 % (15-50); Transferrin 130 mg/dL (200-400)
[2021-02-20] MEDS: Budesonide/Formoterol 80/4.5 1 PUFF INH IH SCH ×2 (10:52→20:08)
[2021-02-20] MEDS: Ondansetron 4 MG/2 ML VIAL IVP PRN (13:08)
[2021-02-20] MEDS: Famotidine 20 MG TABLET PO SCH (20:26)
[2021-02-20] MEDS: Mirtazapine 15 MG TABLET PO SCH (20:26)
[2021-02-20] MEDS: traZODone 50 MG TABLET PO SCH (20:27)
[2021-02-21] MEDS: hydrALAZINE 25 MG TABLET PO SCH ×3 (00:27→16:18)
[2021-02-21 01:33] LABS: Basophils # 0.1 K/mcL (0.0-0.2); Basophils % 0.5 %; Eosinophils # 0.1 K/mcL (0.0-0.6); Eosinophils % 0.3 %; Hematocrit 33.4 % (35.3-44.9); Hematocrit 33.5 % (35.3-44.9); Hemoglobin 11.1 g/dL (11.5-15.4); Immature Granulocytes % 1.5 % (0-4); Lymphocytes # 0.8 K/mcL (0.6-4.6); Lymphocytes % 3.9 %; Mean Corpuscular HGB Conc 32.9 g/dL (31.6-35.5); Mean Corpuscular HGB Conc 33.1 g/dL (31.6-35.5); Mean Corpuscular Hemoglobin 30.6 pg (28.0-33.3); Mean Corpuscular Volume 93.6 fL (83.0-100.0); Mean Platelet Volume 10.3 fL (9.4-12.4); Mean Platelet Volume 10.4 fL (9.4-12.4); Monocytes # 0.7 K/mcL (0.0-1.3); Monocytes % 3.6 %; Neutrophils # 17.8 K/mcL (1.6-8.9); Platelet Count 151 K/mcL (140-400); Platelet Count 152 K/mcL (140-400); Red Blood Count 3.58 M/mcL (3.82-4.97); Red Blood Count 3.59 M/mcL (3.82-4.97); Red Cell Distribution Width 12.8 % (11.5-14.5); Segmented Neutrophils % 90.2 %; White Blood Count 19.7 K/mcL (4.3-11.1); White Blood Count 19.9 K/mcL (4.3-11.1)
[2021-02-21 01:54] LABS: Calcium 9.7 mg/dL (8.6-10.3)
[2021-02-21] MEDS: Insulin LISPRO 300 UNITS/3 ML VIAL SUBQ SCH ×4 (07:38→19:27)
[2021-02-21] MEDS: carvediloL 25 MG TABLET PO SCH ×2 (07:39→16:19)
[2021-02-21] MEDS: amLODIPine 5 MG TABLET PO SCH (07:40)
[2021-02-21] MEDS: Aspirin Enteric Coated 81 MG Tablet PO SCH (07:52)
[2021-02-21] MEDS: risperiDONE 1 MG TABLET PO SCH (07:52)
[2021-02-21] MEDS: Ranolazine 500 MG TAB.ER.12H PO SCH ×2 (07:52→20:06)
[2021-02-21] MEDS: Nystatin POWDER 30 GM BOTTLE TP SCH ×2 (07:53→20:07)
[2021-02-21] MEDS: Furosemide 20 MG TABLET PO SCH (07:53)
[2021-02-21] MEDS: Budesonide/Formoterol 80/4.5 1 PUFF INH IH SCH ×2 (08:07→19:57)
[2021-02-21] MEDS ORDERED: 0.9 % Sodium Chloride 250 ML IVC PRN (08:33)
[2021-02-21] MEDS ORDERED: 0.9 % Sodium Chloride 1,000 ML PRIME SCH (08:45)
[2021-02-21] MEDS: traZODone 50 MG TABLET PO SCH (20:06)
[2021-02-21] MEDS: Famotidine 20 MG TABLET PO SCH (20:07)
[2021-02-21] MEDS: Mirtazapine 15 MG TABLET PO SCH (20:07)
[2021-02-22] MEDS: hydrALAZINE 25 MG TABLET PO SCH ×3 (03:33→16:26)
[2021-02-22] MEDS: Budesonide/Formoterol 80/4.5 1 PUFF INH IH SCH ×2 (08:31→19:53)
[2021-02-22] MEDS: risperiDONE 1 MG TABLET PO SCH (08:40)
[2021-02-22] MEDS: Ranolazine 500 MG TAB.ER.12H PO SCH ×2 (08:40→20:49)
[2021-02-22] MEDS: Aspirin Enteric Coated 81 MG Tablet PO SCH (08:40)
[2021-02-22] MEDS: amLODIPine 5 MG TABLET PO SCH (08:40)
[2021-02-22] MEDS: carvediloL 25 MG TABLET PO SCH ×2 (08:40→16:27)
[2021-02-22] MEDS: Furosemide 20 MG TABLET PO SCH (08:41)
[2021-02-22] MEDS: Insulin LISPRO 300 UNITS/3 ML VIAL SUBQ SCH ×4 (08:41→20:50)
[2021-02-22] MEDS: Nystatin POWDER 30 GM BOTTLE TP SCH ×2 (08:48→20:49)
[2021-02-22 10:50] LABS: Hematocrit 31.4 % (35.3-44.9); Hemoglobin 10.9 g/dL (11.5-15.4); Mean Corpuscular HGB Conc 34.7 g/dL (31.6-35.5); Mean Corpuscular Hemoglobin 31.9 pg (28.0-33.3); Mean Corpuscular Volume 91.8 fL (83.0-100.0); Mean Platelet Volume 9.8 fL (9.4-12.4); Platelet Count 192 K/mcL (140-400); Red Blood Count 3.42 M/mcL (3.82-4.97); Red Cell Distribution Width 13.3 % (11.5-14.5); White Blood Count 26.4 K/mcL (4.3-11.1)
[2021-02-22 10:55] LABS: Bilirubin,Urine Negative (Negative); Blood,Urine Small (Negative); Clarity,Urine Turbid (Clear); Color,Urine Yellow (Yellow); Glucose,Urine (UA) Normal (Normal); Ketones,Urine Negative (Negative); Leukocyte Esterase,Urine Negative (Negative); Nitrite,Urine Negative (Negative); Protein,Urine >=300 mg/dL (Neg-Trace); RBC,Urine 0-3 per hpf (0-3); Specific Gravity,Urine 1.021 (1.010-1.025); Squamous Epithelial Cell,Urine Few per hpf (None-Few); Urobilinogen,Urine Normal (Normal); WBC,Urine 0-3 per hpf (0-3)
[2021-02-22 12:45] LABS: Lymphocytes # 0.8 K/mcL (0.6-4.6); Monocytes # 1.1 K/mcL (0.0-1.3); Neutrophils # 24.3 K/mcL (1.6-8.9); Platelet Estimate Normal (Normal)
[2021-02-22 12:47] LABS: Poikilocytosis 1+ (Not Present)
[2021-02-22] MEDS: 0.9 % Sodium Chloride 1,000 ML IVC SCH (14:38)
[2021-02-22 17:13] LABS: Albumin 3.1 g/dL (3.5-5.7); Albumin/Globulin Ratio 1.1 (1.1-2.2); Bilirubin,Total 0.5 mg/dL (0.3-1.0); Calcium 9.5 mg/dL (8.6-10.3); Globulin 2.9 g/dL (2.4-3.5); Potassium 3.9 mEq/L (3.5-5.1)
[2021-02-22] MEDS ORDERED: Vancomycin 1,250 MG/262.5 ML IV.SOLN IVPB ONE (18:47)
[2021-02-22] MEDS: Mirtazapine 15 MG TABLET PO SCH (20:45)
[2021-02-22] MEDS: traZODone 50 MG TABLET PO SCH (20:46)
[2021-02-22] MEDS: Famotidine 20 MG TABLET PO SCH (20:49)
[2021-02-22] MEDS: Cefepime HCl 2,000 MG in 0.9 % Sodium Chloride Mini Bag 100 ML IVPB SCH (22:32)
[2021-02-23] MEDS: hydrALAZINE 25 MG TABLET PO SCH ×2 (01:22→08:41)
[2021-02-23] MEDS: 0.9 % Sodium Chloride 1,000 ML IVC SCH ×2 (01:22→05:56)
[2021-02-23 03:56] LABS: Eosinophils % 0.1 %; Mean Platelet Volume 10.1 fL (9.4-12.4); Red Cell Distribution Width 13.4 % (11.5-14.5)
[2021-02-23 03:57] LABS: Basophils # 0.1 K/mcL (0.0-0.2); Basophils % 0.4 %; Hematocrit 30.9 % (35.3-44.9); Immature Granulocytes % 2.2 % (0-4); Lymphocytes % 3.5 %; Mean Corpuscular HGB Conc 32.4 g/dL (31.6-35.5); Mean Corpuscular Hemoglobin 30.8 pg (28.0-33.3); Mean Corpuscular Volume 95.1 fL (83.0-100.0); Monocytes # 2.3 K/mcL (0.0-1.3); Monocytes % 7.7 %; Neutrophils # 25.8 K/mcL (1.6-8.9); Platelet Count 185 K/mcL (140-400); Red Blood Count 3.25 M/mcL (3.82-4.97); Segmented Neutrophils % 86.1 %
[2021-02-23 04:14] LABS: Albumin 3.2 g/dL (3.5-5.7); Albumin/Globulin Ratio 1.1 (1.1-2.2); Bilirubin,Total 0.5 mg/dL (0.3-1.0); Calcium 9.4 mg/dL (8.6-10.3); Globulin 2.9 g/dL (2.4-3.5); Lymphocytes # 1.1 K/mcL (0.6-4.6); Potassium 3.8 mEq/L (3.5-5.1); Total Protein 6.1 g/dL (6.4-8.9)
[2021-02-23 04:26] LABS: Large Platelets Present (Not Present); Platelet Estimate Normal (Normal)
[2021-02-23] MEDS ORDERED: 0.9 % Sodium Chloride 250 ML IVC PRN (06:43)
[2021-02-23] MEDS: Insulin LISPRO 300 UNITS/3 ML VIAL SUBQ SCH ×4 (07:29→20:23)
[2021-02-23] MEDS: Budesonide/Formoterol 80/4.5 1 PUFF INH IH SCH ×2 (08:18→20:22)
[2021-02-23] MEDS: Aspirin Enteric Coated 81 MG Tablet PO SCH (08:25)
[2021-02-23] MEDS: carvediloL 25 MG TABLET PO SCH ×2 (08:25→16:14)
[2021-02-23] MEDS: amLODIPine 5 MG TABLET PO SCH (08:25)
[2021-02-23] MEDS: Ranolazine 500 MG TAB.ER.12H PO SCH ×2 (08:25→20:26)
[2021-02-23] MEDS: Furosemide 20 MG TABLET PO SCH (08:26)
[2021-02-23] MEDS: risperiDONE 1 MG TABLET PO SCH (08:26)
[2021-02-23] MEDS: Nystatin POWDER 30 GM BOTTLE TP SCH ×2 (08:26→20:25)
[2021-02-23] MEDS ORDERED: Acetaminophen IV 500 MG/50 ML BAG IVPB ONE (15:44)
[2021-02-23] MEDS ORDERED: Vancomycin 1,250 MG/262.5 ML IV.SOLN IVPB ONE ×2 (16:00→18:00)
[2021-02-23] MEDS ORDERED: hydrALAZINE 25 MG TABLET PO SCH (16:00)
[2021-02-23] MEDS ORDERED: *HR* LORazepam 2 MG/ML VIAL IVP ONE (17:21)
[2021-02-23] MEDS: Cefepime HCl 2,000 MG in 0.9 % Sodium Chloride Mini Bag 100 ML IVPB SCH (17:31)
[2021-02-23 18:05] LABS: ABG Base Excess 5 mEq/L (-2 to 3); ABG HCO3 28 mEq/L (21-27); ABG Oxygen Saturation 91 % (95-98); ABG PCO2 36 mmHg (35-45); ABG PO2 56 mmHg (85-104); ABG TCO2 29 mEq/L (20-26)
[2021-02-23] MEDS: Famotidine 20 MG TABLET PO SCH (20:25)
[2021-02-23] MEDS: Mirtazapine 15 MG TABLET PO SCH (20:26)
[2021-02-23] MEDS: traZODone 50 MG TABLET PO SCH (20:26)
[2021-02-24] MEDS: hydrALAZINE 25 MG TABLET PO SCH ×3 (01:12→15:36)
[2021-02-24 03:44] LABS: Eosinophils % 0.3 %
[2021-02-24 03:46] LABS: Basophils # 0.1 K/mcL (0.0-0.2); Basophils % 0.3 %; Eosinophils # 0.1 K/mcL (0.0-0.6); Hematocrit 29.2 % (35.3-44.9); Hemoglobin 9.8 g/dL (11.5-15.4); Immature Granulocytes % 2.1 % (0-4); Lymphocytes # 1.3 K/mcL (0.6-4.6); Mean Corpuscular HGB Conc 33.6 g/dL (31.6-35.5); Mean Corpuscular Volume 95.4 fL (83.0-100.0); Mean Platelet Volume 9.7 fL (9.4-12.4); Monocytes # 1.6 K/mcL (0.0-1.3); Monocytes % 6.1 %; Neutrophils # 22.6 K/mcL (1.6-8.9); Platelet Count 174 K/mcL (140-400); Red Blood Count 3.06 M/mcL (3.82-4.97); Red Cell Distribution Width 13.2 % (11.5-14.5); Segmented Neutrophils % 86.2 %; White Blood Count 26.2 K/mcL (4.3-11.1)
[2021-02-24 04:02] LABS: Calcium 9.2 mg/dL (8.6-10.3); Potassium 3.7 mEq/L (3.5-5.1)
[2021-02-24] MEDS ORDERED: *HR* LORazepam 2 MG/ML VIAL IVP PRN (07:15)
[2021-02-24] MEDS: Insulin LISPRO 300 UNITS/3 ML VIAL SUBQ SCH ×4 (07:34→19:57)
[2021-02-24] MEDS: carvediloL 25 MG TABLET PO SCH ×2 (08:34→15:37)
[2021-02-24] MEDS: Aspirin Enteric Coated 81 MG Tablet PO SCH (08:34)
[2021-02-24] MEDS: Ranolazine 500 MG TAB.ER.12H PO SCH ×2 (08:35→19:57)
[2021-02-24] MEDS: Nystatin POWDER 30 GM BOTTLE TP SCH ×2 (08:35→19:57)
[2021-02-24] MEDS: risperiDONE 1 MG TABLET PO SCH (08:35)
[2021-02-24] MEDS: amLODIPine 5 MG TABLET PO SCH (08:35)
[2021-02-24] MEDS: Furosemide 20 MG TABLET PO SCH (08:35)
[2021-02-24] MEDS: Budesonide/Formoterol 80/4.5 1 PUFF INH IH SCH ×2 (08:54→22:49)
[2021-02-24] MEDS: traZODone 50 MG TABLET PO SCH (19:49)
[2021-02-24] MEDS: Mirtazapine 15 MG TABLET PO SCH (19:51)
[2021-02-24] MEDS: Famotidine 20 MG TABLET PO SCH (19:52)
[2021-02-24] MEDS: ALPRAZolam 1 MG TABLET PO PRN (19:56)
[2021-02-25] MEDS: hydrALAZINE 25 MG TABLET PO SCH ×3 (00:09→16:06)
[2021-02-25 04:21] LABS: Basophils # 0.1 K/mcL (0.0-0.2); Basophils % 0.5 %; Eosinophils # 0.4 K/mcL (0.0-0.6); Eosinophils % 1.7 %; Hematocrit 28.4 % (35.3-44.9); Hemoglobin 9.2 g/dL (11.5-15.4); Immature Granulocytes % 2.8 % (0-4); Lymphocytes # 1.6 K/mcL (0.6-4.6); Lymphocytes % 6.6 %; Mean Corpuscular HGB Conc 32.4 g/dL (31.6-35.5); Mean Corpuscular Hemoglobin 30.9 pg (28.0-33.3); Mean Corpuscular Volume 95.3 fL (83.0-100.0); Mean Platelet Volume 9.9 fL (9.4-12.4); Monocytes # 1.6 K/mcL (0.0-1.3); Monocytes % 6.6 %; Neutrophils # 19.6 K/mcL (1.6-8.9); Platelet Count 154 K/mcL (140-400); Red Blood Count 2.98 M/mcL (3.82-4.97); Red Cell Distribution Width 13.2 % (11.5-14.5); Segmented Neutrophils % 81.8 %; White Blood Count 23.9 K/mcL (4.3-11.1)
[2021-02-25 04:37] LABS: Calcium 8.9 mg/dL (8.6-10.3); Magnesium 1.5 mg/dL (1.6-2.6); Phosphorous 3.1 mg/dL (2.7-4.5); Potassium 3.1 mEq/L (3.5-5.1)
[2021-02-25] MEDS: Budesonide/Formoterol 80/4.5 1 PUFF INH IH SCH ×2 (07:36→20:02)
[2021-02-25] MEDS: Insulin LISPRO 300 UNITS/3 ML VIAL SUBQ SCH ×4 (08:43→21:48)
[2021-02-25] MEDS: carvediloL 25 MG TABLET PO SCH ×2 (08:44→16:06)
[2021-02-25] MEDS: Furosemide 20 MG TABLET PO SCH (08:44)
[2021-02-25] MEDS: Aspirin Enteric Coated 81 MG Tablet PO SCH (08:44)
[2021-02-25] MEDS: Nystatin POWDER 30 GM BOTTLE TP SCH ×2 (08:44→21:44)
[2021-02-25] MEDS: amLODIPine 5 MG TABLET PO SCH (08:44)
[2021-02-25] MEDS: risperiDONE 1 MG TABLET PO SCH (08:44)
[2021-02-25] MEDS: Ranolazine 500 MG TAB.ER.12H PO SCH ×2 (08:45→21:48)
[2021-02-25] MEDS: Mirtazapine 15 MG TABLET PO SCH (21:48)
[2021-02-25] MEDS: traZODone 50 MG TABLET PO SCH (21:48)
[2021-02-26] MEDS: hydrALAZINE 25 MG TABLET PO SCH ×3 (01:04→16:21)
[2021-02-26 05:02] LABS: White Blood Count 21.1 K/mcL (4.3-11.1)
[2021-02-26 05:03] LABS: Basophils # 0.1 K/mcL (0.0-0.2); Basophils % 0.6 %; Eosinophils # 0.5 K/mcL (0.0-0.6); Eosinophils % 2.3 %; Hematocrit 28.3 % (35.3-44.9); Hemoglobin 9.6 g/dL (11.5-15.4); Immature Granulocytes % 4.9 % (0-4); Lymphocytes # 1.3 K/mcL (0.6-4.6); Lymphocytes % 6.3 %; Mean Corpuscular HGB Conc 33.9 g/dL (31.6-35.5); Mean Corpuscular Hemoglobin 31.5 pg (28.0-33.3); Mean Corpuscular Volume 92.8 fL (83.0-100.0); Mean Platelet Volume 10.2 fL (9.4-12.4); Monocytes # 1.2 K/mcL (0.0-1.3); Monocytes % 5.9 %; Neutrophils # 16.9 K/mcL (1.6-8.9); Platelet Count 139 K/mcL (140-400); Red Blood Count 3.05 M/mcL (3.82-4.97); Red Cell Distribution Width 12.8 % (11.5-14.5)
[2021-02-26 05:14] LABS: Calcium 8.9 mg/dL (8.6-10.3); Magnesium 1.7 mg/dL (1.6-2.6); Phosphorous 3.5 mg/dL (2.7-4.5); Potassium 3.8 mEq/L (3.5-5.1)
[2021-02-26] MEDS ORDERED: 0.9 % Sodium Chloride 250 ML IVC PRN (07:19)
[2021-02-26] MEDS: Budesonide/Formoterol 80/4.5 1 PUFF INH IH SCH ×2 (07:25→20:25)
[2021-02-26] MEDS: Insulin LISPRO 300 UNITS/3 ML VIAL SUBQ SCH ×4 (09:05→20:03)
[2021-02-26] MEDS: Aspirin Enteric Coated 81 MG Tablet PO SCH (09:09)
[2021-02-26] MEDS: risperiDONE 1 MG TABLET PO SCH (09:09)
[2021-02-26] MEDS: Ranolazine 500 MG TAB.ER.12H PO SCH ×2 (09:09→20:10)
[2021-02-26] MEDS: Furosemide 20 MG TABLET PO SCH (12:55)
[2021-02-26] MEDS: amLODIPine 5 MG TABLET PO SCH (12:55)
[2021-02-26] MEDS: carvediloL 25 MG TABLET PO SCH ×2 (12:55→16:21)
[2021-02-26] MEDS ORDERED: Vancomycin 1,250 MG/262.5 ML IV.SOLN IVPB ONE (16:00)
[2021-02-26] MEDS: Nystatin POWDER 30 GM BOTTLE TP SCH ×2 (17:59→20:10)
[2021-02-26] MEDS: Cefepime HCl 2,000 MG in 0.9 % Sodium Chloride Mini Bag 100 ML IVPB SCH (18:08)
[2021-02-26] MEDS: Mirtazapine 15 MG TABLET PO SCH (20:09)
[2021-02-26] MEDS: traZODone 50 MG TABLET PO SCH (20:10)
[2021-02-27] MEDS: hydrALAZINE 25 MG TABLET PO SCH ×3 (00:27→17:50)
[2021-02-27] MEDS: Budesonide/Formoterol 80/4.5 1 PUFF INH IH SCH ×2 (07:24→20:10)
[2021-02-27] MEDS: Insulin LISPRO 300 UNITS/3 ML VIAL SUBQ SCH ×4 (09:50→19:25)
[2021-02-27] MEDS: Furosemide 20 MG TABLET PO SCH (09:51)
[2021-02-27] MEDS: Aspirin Enteric Coated 81 MG Tablet PO SCH (09:51)
[2021-02-27] MEDS: amLODIPine 5 MG TABLET PO SCH (09:51)
[2021-02-27] MEDS: risperiDONE 1 MG TABLET PO SCH (09:51)
[2021-02-27] MEDS: Ranolazine 500 MG TAB.ER.12H PO SCH ×2 (09:51→19:29)
[2021-02-27] MEDS: Nystatin POWDER 30 GM BOTTLE TP SCH ×2 (09:52→19:28)
[2021-02-27] MEDS: carvediloL 25 MG TABLET PO SCH ×2 (09:54→17:50)
[2021-02-27 14:24] LABS: Calcium 9.1 mg/dL (8.6-10.3); Magnesium 1.5 mg/dL (1.6-2.6); Phosphorous 2.6 mg/dL (2.7-4.5); Potassium 3.3 mEq/L (3.5-5.1)
[2021-02-27] MEDS: traZODone 50 MG TABLET PO SCH (19:28)
[2021-02-27] MEDS: Mirtazapine 15 MG TABLET PO SCH (19:29)
[2021-02-27 20:11] LABS: Basophils # 0.1 K/mcL (0.0-0.2); Basophils % 0.6 %; Eosinophils # 0.3 K/mcL (0.0-0.6); Eosinophils % 1.5 %; Hematocrit 29.6 % (35.3-44.9); Hemoglobin 10.1 g/dL (11.5-15.4); Immature Granulocytes % 4.4 % (0-4); Lymphocytes # 1.3 K/mcL (0.6-4.6); Lymphocytes % 5.7 %; Mean Corpuscular HGB Conc 34.1 g/dL (31.6-35.5); Mean Corpuscular Hemoglobin 31.4 pg (28.0-33.3); Mean Corpuscular Volume 91.9 fL (83.0-100.0); Mean Platelet Volume 10.1 fL (9.4-12.4); Monocytes # 1.9 K/mcL (0.0-1.3); Monocytes % 8.5 %; Neutrophils # 17.7 K/mcL (1.6-8.9); Platelet Count 136 K/mcL (140-400); Red Blood Count 3.22 M/mcL (3.82-4.97); Red Cell Distribution Width 12.8 % (11.5-14.5); Segmented Neutrophils % 79.3 %; White Blood Count 22.3 K/mcL (4.3-11.1)
[2021-02-28] MEDS: hydrALAZINE 25 MG TABLET PO SCH ×3 (01:01→15:45)
[2021-02-28 02:46] LABS: Basophils # 0.1 K/mcL (0.0-0.2); Basophils % 0.6 %; Eosinophils # 0.3 K/mcL (0.0-0.6); Eosinophils % 1.4 %; Hematocrit 28.8 % (35.3-44.9); Hemoglobin 9.8 g/dL (11.5-15.4); Immature Granulocytes % 4.2 % (0-4); Lymphocytes # 1.3 K/mcL (0.6-4.6); Lymphocytes % 6.4 %; Mean Corpuscular Hemoglobin 31.6 pg (28.0-33.3); Mean Corpuscular Volume 92.9 fL (83.0-100.0); Mean Platelet Volume 10.1 fL (9.4-12.4); Monocytes # 1.7 K/mcL (0.0-1.3); Neutrophils # 16.5 K/mcL (1.6-8.9); Nucleated Red Blood Cells 0.1 /100 WBC (0); Platelet Count 133 K/mcL (140-400); Segmented Neutrophils % 79.4 %; White Blood Count 20.8 K/mcL (4.3-11.1)
[2021-02-28 03:04] LABS: Calcium 9.1 mg/dL (8.6-10.3); Magnesium 1.4 mg/dL (1.6-2.6); Phosphorous 3.4 mg/dL (2.7-4.5); Potassium 2.9 mEq/L (3.5-5.1)
[2021-02-28] MEDS ORDERED: 0.9 % Sodium Chloride 250 ML IVC PRN (07:05)
[2021-02-28] MEDS: Budesonide/Formoterol 80/4.5 1 PUFF INH IH SCH ×2 (08:00→19:59)
[2021-02-28] MEDS: Insulin LISPRO 300 UNITS/3 ML VIAL SUBQ SCH ×4 (08:13→19:36)
[2021-02-28] MEDS: Ranolazine 500 MG TAB.ER.12H PO SCH ×2 (08:14→19:38)
[2021-02-28] MEDS: Aspirin Enteric Coated 81 MG Tablet PO SCH (08:14)
[2021-02-28] MEDS: Furosemide 20 MG TABLET PO SCH (08:14)
[2021-02-28] MEDS: risperiDONE 1 MG TABLET PO SCH (08:15)
[2021-02-28] MEDS: amLODIPine 5 MG TABLET PO SCH (08:15)
[2021-02-28] MEDS: carvediloL 25 MG TABLET PO SCH ×2 (08:15→17:10)
[2021-02-28] MEDS: Nystatin POWDER 30 GM BOTTLE TP SCH ×2 (12:19→19:49)
[2021-02-28] MEDS: Cefepime HCl 2,000 MG in 0.9 % Sodium Chloride Mini Bag 100 ML IVPB SCH ×2 (17:09→22:41)
[2021-02-28] MEDS: traZODone 50 MG TABLET PO SCH (19:38)
[2021-02-28] MEDS: ALPRAZolam 1 MG TABLET PO PRN (19:38)
[2021-02-28] MEDS: Mirtazapine 15 MG TABLET PO SCH (19:38)
[2021-03-01] MEDS: hydrALAZINE 25 MG TABLET PO SCH ×2 (00:06→08:10)
[2021-03-01] MEDS: Budesonide/Formoterol 80/4.5 1 PUFF INH IH SCH (07:25)
[2021-03-01] MEDS: Insulin LISPRO 300 UNITS/3 ML VIAL SUBQ SCH ×2 (07:58→11:56)
[2021-03-01] MEDS: Ranolazine 500 MG TAB.ER.12H PO SCH (08:10)
[2021-03-01] MEDS: amLODIPine 5 MG TABLET PO SCH (08:10)
[2021-03-01] MEDS: carvediloL 25 MG TABLET PO SCH (08:11)
[2021-03-01] MEDS: risperiDONE 1 MG TABLET PO SCH (08:11)
[2021-03-01] MEDS: Aspirin Enteric Coated 81 MG Tablet PO SCH (08:11)
[2021-03-01] MEDS: Furosemide 20 MG TABLET PO SCH (08:11)
[2021-03-01] MEDS: Nystatin POWDER 30 GM BOTTLE TP SCH (08:12)
[2021-03-01 11:32] VITALS: BP 154/72; PULSE 81; TEMP 98; O2SAT 100
[2021-03-01 12:25] LABS: Adenovirus Not Detected (Not Detect); Bordetella Pertussis Not Detected (Not Detect); Chlamydophila pneumoniae Not Detected (Not Detect); Coronavirus 229E Not Detected (Not Detect); Coronavirus HKU1 Not Detected (Not Detect); Coronavirus NL63 Not Detected (Not Detect); Coronavirus OC43 Not Detected (Not Detect); Human Metapneumovirus Not Detected (Not Detect); Human Rhinovirus/Enterovirus Not Detected (Not Detect); Influenza A Subtype 2009 H1 Not Detected (Not Detect); Influenza B Not Detected (Not Detect); Mycoplasma pneumoniae Not Detected (Not Detect); Parainfluenza Virus 1 Not Detected (Not Detect); Parainfluenza Virus 2 Not Detected (Not Detect); Parainfluenza Virus 3 Not Detected (Not Detect); Parainfluenza Virus 4 Not Detected (Not Detect); Respiratory Syncytial Virus Not Detected (Not Detect); SARS-CoV-2 Not Detected (Not Detect)
== END 2021-03-01 14:38 | disposition other institution (70) | DRG 689 ==
LOC: 2ANU 11:19 → EMEROOARM 11:19 → SUATTDRO 19:52 → 2ANU 22:00 → SUATTDRO 02-18 09:32
PROVIDERS: ADMIT Internal Medicine; ATTEND Internal Medicine

== ENCOUNTER 2021-03-04 15:30 | Inpatient (IN) ==
[2021-03-04] MEDS ORDERED: Melatonin 3 MG TABLET PO PRN (19:45)
[2021-03-04] MEDS ORDERED: Naloxone 0.4 MG/ML INJ IVP PRN (19:45)
[2021-03-04] MEDS ORDERED: Clotrimazole/Betameth Dip CRM 45 APPL/45 GM TUBE TP PRN (19:53)
[2021-03-04] MEDS ORDERED: ALPRAZolam 1 MG TABLET PO PRN (20:35)
[2021-03-04] MEDS ORDERED: Mirtazapine 15 MG TABLET PO SCH (21:00)
[2021-03-04] MEDS ORDERED: Ampicillin 2,000 MG in 0.9 % Sodium Chloride Mini Bag 100 ML IVPB SCH (21:00)
[2021-03-04] MEDS ORDERED: Vancomycin 0 MG in 0.9 % Sodium Chloride 250 ML IVPB SCH (21:00)
[2021-03-04] MEDS ORDERED: ALPRAZolam 1 MG TABLET PO SCH (21:00)
[2021-03-04] MEDS ORDERED: traZODone 50 MG TABLET PO SCH (21:00)
[2021-03-04] MEDS ORDERED: risperiDONE 1 MG TABLET PO SCH (21:00)
[2021-03-04 22:16] LABS: ABG Base Excess -3 mEq/L (-2 to 3); ABG HCO3 21 mEq/L (21-27); ABG Oxygen Saturation 97 % (95-98); ABG PCO2 33 mmHg (35-45); ABG PH 7.41 pH Units (7.32-7.45); ABG PO2 94 mmHg (85-104); ABG TCO2 22 mEq/L (20-26)
[2021-03-04] MEDS: Budesonide/Formoterol 80/4.5 1 PUFF INH IH SCH (23:33)
[2021-03-04] MEDS: cefTRIAXone 2,000 MG in 0.9 % Sodium Chloride Mini Bag 100 ML IVPB SCH (23:46)
[2021-03-05] MEDS: Ampicillin 2,000 MG in 0.9 % Sodium Chloride Mini Bag 100 ML IVPB SCH ×3 (01:33→08:34)
[2021-03-05 06:58] LABS: Hematocrit 25.1 % (35.3-44.9); Hemoglobin 8.3 g/dL (11.5-15.4); Mean Corpuscular HGB Conc 33.1 g/dL (31.6-35.5); Mean Corpuscular Volume 96.9 fL (83.0-100.0); Mean Platelet Volume 10.9 fL (9.4-12.4); Nucleated Red Blood Cells 0.1 /100 WBC (0); Platelet Count 202 K/mcL (140-400); Red Blood Count 2.59 M/mcL (3.82-4.97); Red Cell Distribution Width 13.9 % (11.5-14.5)
[2021-03-05 07:22] LABS: Thyroid Stimulating Hormone 1.764 mcIU/mL (0.340-5.600)
[2021-03-05 08:04] LABS: Lymphocytes # 1.2 K/mcL (0.6-4.6); Monocytes # 1.7 K/mcL (0.0-1.3); Neutrophils # 26.1 K/mcL (1.6-8.9); Platelet Estimate Normal (Normal)
[2021-03-05 08:05] LABS: Anisocytosis 1+ (Not Present)
[2021-03-05] MEDS: Budesonide/Formoterol 80/4.5 1 PUFF INH IH SCH ×2 (08:23→22:03)
[2021-03-05] MEDS: cefTRIAXone 2,000 MG in 0.9 % Sodium Chloride Mini Bag 100 ML IVPB SCH (08:37)
[2021-03-05] MEDS ORDERED: amLODIPine 5 MG TABLET PO SCH (09:00)
[2021-03-05] MEDS ORDERED: Vitamin B Complex/Vit C/Vit E 1 EACH TABLET PO SCH (09:00)
[2021-03-05] MEDS ORDERED: Aspirin Enteric Coated 81 MG Tablet PO SCH (09:00)
[2021-03-05] MEDS ORDERED: *HR* Heparin 10,000 UNIT/10 ML VIAL IV PRN (11:33)
[2021-03-05] MEDS ORDERED: 0.9 % Sodium Chloride 1,000 ML PRIME SCH (11:45)
[2021-03-05] MEDS: Piperacillin/Tazobactam 3.375 GM in 0.9 % Sodium Chloride Mini Bag 100 ML IVPB SCH ×3 (12:21→23:10)
[2021-03-05 14:17] LABS: BUN/Creatinine Ratio 11 (6-26); Blood Urea Nitrogen 27 mg/dL (8-23); C-Reactive Protein > 300 mg/L (Less than 10); Calcium 8.7 mg/dL (8.6-10.3); Carbon Dioxide 27 mEq/L (23-29); Chloride 98 mEq/L (98-107); Glucose 98 mg/dL (70-105); Osmolality,Calculated 279 (280-300); Potassium 2.6 mEq/L (3.5-5.1); Sodium 132 mEq/L (136-145); eGFR For African Americans 25 (> 60); eGFR For Non-African Americans 20 (> 60)
[2021-03-05] MEDS ORDERED: *HR* LORazepam 2 MG/ML VIAL IVP PRN (14:40)
[2021-03-05 18:39] LABS: Bilirubin,Urine Negative (Negative); Blood,Urine Trace (Negative); Clarity,Urine Ex.Turbid (Clear); Color,Urine Yellow (Yellow); Glucose,Urine (UA) 70 mg/dL (Normal); Granular Casts,Urine Many per lpf (None Seen); Hyaline Casts,Urine Few per lpf (None Seen); Ketones,Urine Negative (Negative); Leukocyte Esterase,Urine Trace (Negative); Mucus,Urine Few per lpf (None-Few); Nitrite,Urine Negative (Negative); Protein,Urine >=300 mg/dL (Neg-Trace); Renal Epithelial Cells,Urine Few per hpf (None-Few); Specific Gravity,Urine 1.024 (1.010-1.025); Squamous Epithelial Cell,Urine Few per hpf (None-Few); Urobilinogen,Urine Normal (Normal); WBC,Urine 30-50 per hpf (0-3)
[2021-03-05 20:42] LABS: Hematocrit 26.3 % (35.3-44.9); Hemoglobin 8.6 g/dL (11.5-15.4); Mean Corpuscular HGB Conc 32.7 g/dL (31.6-35.5); Mean Corpuscular Hemoglobin 31.4 pg (28.0-33.3); Mean Platelet Volume 10.4 fL (9.4-12.4); Nucleated Red Blood Cells 0.2 /100 WBC (0); Platelet Count 183 K/mcL (140-400); Red Blood Count 2.74 M/mcL (3.82-4.97); Red Cell Distribution Width 14.1 % (11.5-14.5); White Blood Count 24.7 K/mcL (4.3-11.1)
[2021-03-05 21:05] LABS: Neutrophils # 19.8 K/mcL (1.6-8.9); Reactive Lymphocytes Present (Not Present); Smudge Cells Present (Not Present)
[2021-03-05 21:15] LABS: Albumin 2.5 g/dL (3.5-5.7); Albumin/Globulin Ratio 0.9 (1.1-2.2); Bilirubin,Total 0.7 mg/dL (0.3-1.0); Calcium 9.4 mg/dL (8.6-10.3); Globulin 2.9 g/dL (2.4-3.5); Magnesium 1.8 mg/dL (1.6-2.6); Phosphorous 3.8 mg/dL (2.7-4.5); Potassium 3.4 mEq/L (3.5-5.1); Total Protein 5.4 g/dL (6.4-8.9)
[2021-03-05] MEDS: 0.9 % Sodium Chloride 250 ML IVC PRN (23:20)
[2021-03-06 00:38] LABS: Hematocrit 25.7 % (35.3-44.9); Hemoglobin 8.8 g/dL (11.5-15.4); Mean Corpuscular HGB Conc 34.2 g/dL (31.6-35.5); Mean Corpuscular Hemoglobin 32.6 pg (28.0-33.3); Mean Corpuscular Volume 95.2 fL (83.0-100.0); Mean Platelet Volume 10.6 fL (9.4-12.4); Nucleated Red Blood Cells 0.4 /100 WBC (0); Platelet Count 197 K/mcL (140-400); White Blood Count 27.2 K/mcL (4.3-11.1)
[2021-03-06 00:56] LABS: Albumin 2.5 g/dL (3.5-5.7); Albumin/Globulin Ratio 0.9 (1.1-2.2); Bilirubin,Total 0.7 mg/dL (0.3-1.0); Calcium 9.5 mg/dL (8.6-10.3); Globulin 2.8 g/dL (2.4-3.5); Magnesium 1.8 mg/dL (1.6-2.6); Phosphorous 4.3 mg/dL (2.7-4.5); Potassium 3.4 mEq/L (3.5-5.1); Total Protein 5.3 g/dL (6.4-8.9)
[2021-03-06 01:47] LABS: Lymphocytes # 2.7 K/mcL (0.6-4.6); Monocytes # 1.4 K/mcL (0.0-1.3); Neutrophils # 23.1 K/mcL (1.6-8.9)
[2021-03-06 01:48] LABS: Platelet Estimate Normal (Normal); Reactive Lymphocytes Present (Not Present)
[2021-03-06] MEDS ORDERED: Dextrose Gel 15 GM/37.5 ML TUBE PO PRN ×2 (01:49)
[2021-03-06] MEDS ORDERED: *HR* Dextrose 50 % in Water (Syg) 50 ML SYRINGE IVP PRN (01:49)
[2021-03-06] MEDS ORDERED: D5% in Water 1,000 ML IVC PRN (01:49)
[2021-03-06 07:09] VITALS: O2SAT 97
[2021-03-06] MEDS: Budesonide/Formoterol 80/4.5 1 PUFF INH IH SCH ×2 (08:03→20:33)
[2021-03-06] MEDS: Piperacillin/Tazobactam 3.375 GM in 0.9 % Sodium Chloride Mini Bag 100 ML IVPB SCH (08:17)
[2021-03-06] MEDS ORDERED: Pantoprazole 40 MG VIAL IVP SCH (09:00)
[2021-03-06] MEDS ORDERED: 0.9 % Sodium Chloride 1,000 ML IVC SCH (15:15)
[2021-03-06] MEDS ORDERED: Valproic Acid INJ 1,000 MG in 0.9 % Sodium Chloride 100 ML IVPB ONE (15:57)
[2021-03-06] MEDS ORDERED: *HR* LORazepam 2 MG/ML VIAL IVP ONE (16:46)
[2021-03-06] MEDS ORDERED: *HR* LORazepam 2 MG/ML VIAL IVP PRN ×2 (16:47→20:04)
[2021-03-06] MEDS: Thiamine (B-1) 100 MG in 0.9 % Sodium Chloride 50 ML IVPB SCH ×2 (17:07→20:32)
[2021-03-06 17:49] VITALS: TEMP 98.9
[2021-03-06] MEDS ORDERED: 0.9 % Sodium Chloride 500 ML IVC ONE (18:10)
[2021-03-06] MEDS: 0.9 % Sodium Chloride 250 ML IVC PRN (19:42)
[2021-03-06 19:44] VITALS: BP 75/37
[2021-03-06] MEDS ORDERED: Piperacillin/Tazobactam 3.375 GM in 0.9 % Sodium Chloride Mini Bag 100 ML IVPB SCH (20:00)
[2021-03-06] MEDS ORDERED: Morphine Sulfate 2 MG/ML SYRINGE IVP PRN (20:04)
[2021-03-06] MEDS ORDERED: Haloperidol Oral Conc 10 MG/5 ML UDC GTUBE PRN (20:04)
[2021-03-06 21:44] VITALS: PULSE 0
== END 2021-03-06 23:19 | disposition expired | DRG 871 ==
LOC: 2NENU → SUATTDRO 03-05 03:47
PROVIDERS: ADMIT Student in an Organized Health Care Education/Training Program; ATTEND Hospitalist